=== PATIENT | female | born 1965 | race Caucasian/White ===

== ENCOUNTER 2018-04-02 13:40 | Emergency (ER) | payer MEDICAID, SELFPAY ==
[2018-04-02 13:41] VITALS: BP 136/71; PULSE 95; RESP 16; TEMP 36.6; O2SAT 98; BMI 28.3
[2018-04-02] MEDS: Ketorolac 30 MG/ML Syringe IV (14:18)
[2018-04-02] MEDS: proMETHazine 25 MG/ML Syringe 6.25 MG IV (14:19)
[2018-04-02] MEDS: 0.9% Normal Saline 1,000 ML 999 ML IV (14:20)
[2018-04-02] MEDS: DiphenhydrAMINE 50 MG/ML Syringe IV (14:21)
--- NOTE | 2018-04-02 14:37 | ED.VISSUMM ---
- ER Visit Summary Date of Service: 04/02/18 Chief Complaint: Headache History of Present Illness: The patient is a [address] Persaud in [place]. She reports that she has a headache that began yesterday. It is gradually gotten worse. It is a throbbing pain over the lateral portion of her head bilaterally. Is similar to prior headaches. Is 10 at 10 worsening a 10 currently. Is worsened by light and relieved by nothing. She reports she has been nausea and vomited 5 times. No blood or emesis. Physical Examination: Vitals: Stable. Afebrile. Neck: Supple with no meningismus. Neuro: Cranial nerves II through XII are intact, 5 out of 5 strength throughout, normal sensation to light touch throughout. Normal gait. General: A&O x 3. NAD. Cardiovascular exam: Regular rate and rhythm, no murmur, rub or gallop. Respiratory exam: Clear to auscultation bilaterally. No wheezes or stridor. Abdominal exam: Soft, nontender, nondistended, normal bowel sounds. No peritoneal signs. Extremity: No clubbing, cyanosis, or edema. Emergency Department Course and Treatment: Patient had an IV placed. She was given Toradol, Benadryl, and Phenergan IV. She has had some relief. I instructed her that I will not treat her with opiate-based medications for her headache. Treatment Plan: She will be discharged with Phenergan and instructed to follow-up with her primary care physician 1 day if not improving. Disposition: To home in improved and stable condition. Impression: 1. Cephalgia. This note was generated with [employer] dictation software. It may contain incorrect words, spelling, and punctuation that were not noted in review of the chart prior to signing ED Disposition - Plan for ED Patient: Disposition: Home or Assisted Living Chief Complaint: Headache Instructions: ED Cephalgia Unspecified Prescriptions: proMETHazine suppository [Phenergan Suppository] 25 mg RECTAL Q6H PRN PRN #6 suppos. PRN Reason: Nausea proMETHazine tablet [Phenergan] 25 mg PO Q6H PRN PRN #10 tablet PRN Reason: Nausea Referrals: Judie Hanan, IDALIA-C [Primary Care Provider] - 1-2 Days if not improving
== END 2018-04-02 15:00 | disposition home or self-care (01) ==
PROVIDERS: Emergency Provider Emergency Medicine; Family Provider Nurse Practitioner Family; PCP Nurse Practitioner Family
DX: R51 Headache (principal); J45.909 Unspecified asthma, uncomplicated; Z72.0 Tobacco use; Z79.51 Long term (current) use of inhaled steroids; Z79.899 Other long term (current) drug therapy
CPT/HCPCS: 96361; 96374; 96375; 99283; J7030; A4216

== ENCOUNTER → 2018-04-14 12:38 | Outpatient (CLI) | payer MEDICAID, SELFPAY ==
[2018-04-14 13:23] LABS: Erythrocyte Sedimentation Rate < 1 mm/hr (0-30)
== END ==
PROVIDERS: Family Provider Nurse Practitioner Family; PCP Nurse Practitioner Family; Visit Provider Psychiatry & Neurology Neurology
DX: R51 Headache (principal)
CPT/HCPCS: 36415; 85652

== ENCOUNTER → 2018-04-21 16:21 | Outpatient (CLI) | payer MEDICAID, SELFPAY ==
--- NOTE | 2018-04-21 16:28 | MRI_ITS ---
STUDY: MRI BRAIN WITHOUT CONTRAST REASON FOR EXAM: Female, 52 years old. Post concussion syndrome TECHNIQUE: Standardized multiplanar fat and water weighted pulse sequences were obtained. COMPARISON: CT of the brain on April 27, 2015 and MRI on October 09, 2011 FINDINGS: Normal size of the ventricles and extra-axial spaces for the patient's age. Normal white matter tracts of the supratentorial brain. Normal bilateral basal ganglia. Normal thalami. There is no extra-axial fluid accumulation. Normal flow voids within the major intracranial circulation suggesting patency by spin echo criteria. Empty sella deformity of uncertain clinical significance. Normal, infundibular stalk, optic chiasm and hypothalamus. Normal tectal plate and pineal gland. Foci of signal dropout in the inferior frontal lobes which may be consistent with hemosiderin secondary to old hemorrhagic contusions Normal midbrain, bharat and medulla. Normal cerebellum. Normal basal cisterns. Normal bilateral temporal bones. Normal bilateral internal auditory canals. No demonstrated orbital abnormality, within the constraints of a routine brain study. Minor mucosal thickening of the ethmoid air cells.. Normal calvarium and skull base. Normal visualized soft tissue structures. Normal visualized upper cervical spine. MRI/Brain without Contrast IMPRESSION: Empty sella deformity which may be consistent with pseudotumor cerebri. However clinical correlation is recommended Foci of signal dropout in the inferior frontal lobes which may be due to hemosiderin deposition secondary to old hemorrhagic contusions Electronically Signed: Orlando Chow MD at 18:27 EDT , Service support ,
== END ==
PROVIDERS: Family Provider Nurse Practitioner Family; PCP Nurse Practitioner Family; Visit Provider Psychiatry & Neurology Neurology
DX: R51 Headache (principal); S09.90XA Unspecified injury of head, initial encounter
CPT/HCPCS: 70551

== ENCOUNTER 2018-04-28 15:59 | Emergency (ER) | payer MEDICAID, SELFPAY ==
[2018-04-28 16:00] VITALS: BP 96/67; PULSE 91; RESP 16; TEMP 36.8; O2SAT 95; BMI 28.5
--- NOTE | 2018-04-28 17:01 | ED.DCSUM_ITS ---
- ER Visit Summary Date of Service: 04/28/18 Chief Complaint: Headache History of Present Illness: The patient is a [address] Osmany patricia and Dr. Cuellar. She reports that she has a history of pseudotumor cerebri and postconcussive syndrome and has daily headaches. Her current headache began yesterday and is gradually gotten worse. It is similar to her prior headaches. It is a throbbing in the occipital location. It is 9 out of 10 at worst and 8 of 10 currently. Is worsened by light and dry heaves. It is relieved by nothing. She reports that she has vomited twice. No blood or emesis. She denies any recent injury to her head. Physical Examination: Vitals: Stable. Afebrile. Neck: Supple with no meningismus. Neuro: Cranial nerves II through XII are intact, 5 out of 5 strength throughout , normal sensation to light touch throughout. Normal gait. General: A&O x 3. NAD. Cardiovascular exam: Regular rate and rhythm, no murmur, rub or gallop. Respiratory exam: Clear to auscultation bilaterally. No wheezes or stridor. Abdominal exam: Soft, nontender, nondistended, normal bowel sounds. No peritoneal signs. Extremity: No clubbing, cyanosis, or edema. Emergency Department Course and Treatment: Patient had an IV placed. She was given Phenergan, Benadryl, and Toradol IV has had significant relief. Treatment Plan: Patient will be discharged instructions to follow-up her primary care physician 1-2 days if not improving. Return to the emergency department for any worsening symptoms. Disposition: To home in improved and stable condition. Impression: 1. Cephalgia, recurrent. This note was generated with [employer] dictation software. It may contain incorrect words, spelling, and punctuation that were not noted in review of the chart prior to signing ED Disposition - Plan for ED Patient: Chief Complaint: Headache Instructions: ED Cephalgia Unspecified Referrals: Judie Hanna NP-C [Primary Care Provider] - 1-2 Days if not improving
[2018-04-28] MEDS: 0.9% Normal Saline 1,000 ML 999 ML IV (17:27)
[2018-04-28] MEDS: Ketorolac 30 MG/ML Syringe IV (17:28)
[2018-04-28] MEDS: DiphenhydrAMINE 50 MG/ML Syringe 25 MG IV (17:28)
[2018-04-28] MEDS: proMETHazine 25 MG/ML Syringe 6.25 MG IV (17:28)
[2018-04-28 18:22] VITALS: BP 134/78; PULSE 79; RESP 16; O2SAT 94
== END 2018-04-28 18:52 | disposition home or self-care (01) ==
LOC: ED 17:12
PROVIDERS: Emergency Provider Emergency Medicine; Family Provider Nurse Practitioner Family; PCP Nurse Practitioner Family
DX: R51 Headache (principal); G93.2 Benign intracranial hypertension; Z72.0 Tobacco use
CPT/HCPCS: 96361; 96374; 96375; 99284; J7030

== ENCOUNTER 2018-05-29 11:08 | Emergency (ER) | payer MEDICAID, SELFPAY ==
[2018-05-29 11:09] VITALS: BP 131/101; PULSE 98; RESP 16; TEMP 36.7; O2SAT 98; BMI 27.3
[2018-05-29] MEDS: Metoclopramide 10 MG/2 ML Vial IV (11:57)
[2018-05-29] MEDS: DiphenhydrAMINE 50 MG/ML Syringe 25 MG IV (11:57)
[2018-05-29] MEDS: 0.9% Normal Saline 1,000 ML 999 ML IV (11:58)
--- NOTE | 2018-05-29 11:58 | ED.VISSUMM ---
- ER Visit Summary Date of Service: 05/29/18 Chief Complaint: Headache History of Present Illness: The patient is a 52 F who presents with a headache. It is occipital and throbbing in nature. It is exacerbated by light. Patient states that she had a head injury several months ago and has postconcussive syndrome and is followed by Dr. Ceron. Patient states she takes Phenergan at home but what really helps her severe headaches as Dilaudid up to 4 mg. She states that she really does not wish to have 4 mg of Dilaudid because it is not safe. But she does state that she pretty much has bad side effects or allergies to most other medications we have tried with her. I did mention to her that she has been coming to the emergency department for several years with headaches not just since this injury and she states that that is true but since the injury her headaches have been very bad almost daily. She states she called her doctor's office and they have agreed to move her doctor's appointment up to next week but they recommended that she come to the emergency room for evaluation patient denies any fevers and she denies any neurologic deficits. Physical Examination: Afebrile vital signs are stable Gen: Well-nourished well-developed Head: Normocephalic atraumatic Eyes: Perrl EOMI patient is wearing sunglasses ENT: TMs clear no rhinorrhea moist mucous membranes Neck: Supple no lymphadenopathy no JVD nontender CVS: Regular rate rhythm no murmurs normal S1-S2 Respiratory: No distress clear to auscultation bilaterally chest nontender Abdomen: Soft nontender nondistended normal bowel sounds no masses Back: Nontender Extremity: Nontender no edema Skin: Normal color no rash Neuro: alert orientated ?3 CN II-XII intact normal strength sensation reflexes gait cerebellar Psych: Normal affect normal mood Test Results: None indicated Emergency Department Course and Treatment: I reviewed the patient's previous charts. She has a conversation about a Dilaudid injection on most of him even going back several years. Patient received Toradol Benadryl and Phenergan at her last visit and per documentation got good relief but she states that she had such bad itching and bad reaction she does not wish that. I have ordered Reglan and Benadryl which the patient has had in the past as well as IV fluids. I spoke with our case management because of the patient's established care with neurology for this problem and her frequent visits to the ER for headache I felt it would be a good idea to discuss development of treatment plan for her. Impression: 1. Headache This note was generated with [employer] dictation software. It may contain incorrect words, spelling, and punctuation that were not noted in review of the chart prior to signing ED Disposition - Plan for ED Patient: Disposition: Home or Assisted Living Chief Complaint: Headache Instructions: ED Cephalgia Unspecified Referrals: Judie Hanna NP-C [Primary Care Provider] - 3-5 Days Dheeraj Ceron MD [STAFF PHYSICIAN] - Keep Tamiko appointment
[2018-05-29 13:23] VITALS: BP 104/71; PULSE 81; RESP 14; O2SAT 94
== END 2018-05-29 13:24 | disposition home or self-care (01) ==
PROVIDERS: Emergency Provider Emergency Medicine; Family Provider Nurse Practitioner Family; PCP Nurse Practitioner Family
DX: R51 Headache (principal); G89.29 Other chronic pain; R11.2 Nausea with vomiting, unspecified; E11.9 Type 2 diabetes mellitus without complications; I10 Essential (primary) hypertension; E78.00 Pure hypercholesterolemia, unspecified; F07.81 Postconcussional syndrome; Z79.899 Other long term (current) drug therapy; Z72.0 Tobacco use
CPT/HCPCS: 96361; 96374; 96375; 99283; J7030; A4216

== ENCOUNTER 2018-07-13 15:55 | Emergency (ER) | payer MEDICAID, SELFPAY ==
[2018-07-13 15:56] VITALS: BP 152/83; PULSE 98; RESP 16; TEMP 36.8; O2SAT 98; BMI 27.8
--- NOTE | 2018-07-13 16:50 | ED.VISSUMM ---
- ER Visit Summary Date of Service: 07/13/18 Chief Complaint: Abdominal pain History of Present Illness: The patient is a 52 F with complaints of abdominal pain, back pain, nausea. Patient states she has had a several day history of back pain that is now wrapping around the left flank area. She does report nausea and urinary frequency. She states her temperature was up to 102.7 over the weekend. She has been controlling this with ibuprofen. Past abdominal surgery history is significant for cholecystomy, hysterotomy, and one ovary removed. Physical Examination: Blood pressure is 152/83, temperature 98.3, heart rate 98, respiratory rate 16, pulse ox 98% on room air. Patient is sitting upright in a well lit room but she is wearing sunglasses. Heart is regular rate and rhythm. Lungs sounds are clear. Abdomen is soft with no focal tenderness on exam when she is distracted. There is no guarding or rebound. Hypoactive bowel sounds are noted throughout. Back examination was no CVA tenderness. Test Results: CBC was normal white count and differential. Hemoglobin is 15.2. Chemistry studies normal. Urinalysis normal. CT flank shows nonspecific gastroenteritis that is mild. No sign of bowel obstruction. There is a large right adnexal cyst, likely ovarian. Ultrasound is recommended. Pelvic ultrasound reveals a large right ovarian cyst measuring 5.4 x 5.2 x 4.3 cm. There is mild fluid noted in the cul-de-sac. Emergency Department Course and Treatment: Patient was given IV fluids and Phenergan. She has multiple allergies to pain medication. On repeat evaluation patient is resting comfortably. She is given instructions on ovarian cyst. She will be given Phenergan for home. She is to follow-up with her primary care physician. Treatment Plan: [] Disposition: Discharge Impression: Right ovarian cyst This note was generated with [employer] dictation software. It may contain incorrect words, spelling, and punctuation that were not noted in review of the chart prior to signing ED Disposition - Plan for ED Patient: Disposition: Home or Assisted Living Chief Complaint: Abd Pain Instructions: ED Cyst Ovarian Prescriptions: proMETHazine tablet [Phenergan] 25 mg PO Q6H PRN PRN #10 tablet PRN Reason: Nausea Referrals: Phillip De Santiago MD [Primary Care Provider] - 1 Week if not improving
[2018-07-13] MEDS: proMETHazine 25 MG/ML Syringe 12.5 MG IV (17:03)
[2018-07-13] MEDS: 0.9% Normal Saline 1,000 ML 1000 ML IV (17:04)
[2018-07-13 17:29] LABS: Bacteria 0 SEEN /hpf (None Seen); Mucous, Urine 0 SEEN /hpf (<or=2+); Red Blood Cells-Urine 0 SEEN /hpf (0-5); Squamous Epithelial Cells - UA 0 SEEN /hpf (5-10); White Blood Cells 0 SEEN /hpf (0-5)
[2018-07-13 17:35] LABS: Color, Urine Yellow (Yellow); Glucose, Dipstick Normal (Normal); Ketone-Dipstick Negative (Negative); Leukocyte Esterase-Dipstick Negative /ul (Negative); Nitrite-Dipstick Negative (Negative); Occult Blood-Urine Negative /ul (Negative); Protein-Dipstick Negative (Negative); Urine Bilirubin Dipstick Negative (Negative); Urine Clarity Clear (Clear); Urine Urobilinogen Normal (Normal)
[2018-07-13 17:46] LABS: Anion Gap 5 (5-15); BUN 14 mg/dL (7-18); BUN/Creat Ratio 20.6 RATIO (10-20); Calcium,Total 8.8 mg/dL (8.5-10.1); Chloride 107 mmol/L (98-107); Creatinine, Serum 0.68 mg/dL (0.55-1.02); EST Glomerular Filtration Rate 96 mL/min (>60); Est Glom Filt Rate - Afr Amer 116 mL/min (>60); Estimated Creatinine Clearance 82.62 ml/min; Glucose 98 mg/dL (74-106); Sodium Level 140 mmol/L (136-145)
[2018-07-13 17:56] LABS: Absolute Lymphocyte Count 3.06 X10^3/ul (0.83-4.51); Absolute Neutrophil Count 3.9 X10^3/uL (2.0-7.7); Basophil# 0.02 X10^3/uL; Basophil% 0.3 % (0-1); Eosinophils% 1.3 % (0-5); Hemoglobin 15.2 g/dl (12.0-15.0); Lymphocyte # 3.06 X10^3/ul (4.0); Lymphocyte % 40.2 % (19-41); Mean Corp Hgb Conc 33.8 g/gl (32-36); Mean Corpuscular Hgb 31.1 pg (27.0-32.0); Mean Platelet Vol. 10.3 fl (6.2-12.0); Monocyte# 0.51 X10^3/uL; Monocyte% 6.7 % (0-10); Neutrophil # 3.89 X10^3/uL (2.7-7.7); Neutrophil % 51.1 % (47-70); POSITIVE COUNT NO; POSITIVE DIFFERENTIAL NO; POSITIVE MORPHOLOGY NO; Platelet Count 278 K/mm3 (150-450); RBC Distribution Width CV 13.6 % (11.6-14.6); RBC Distribution Width SD 45.4 fl (35.1-43.9); Red Blood Count 4.89 M/mm3 (4.2-5.4); White Blood Count 7.6 K/mm3 (4.4-11.0)
--- NOTE | 2018-07-13 18:04 | US_ITS ---
STUDY: ULTRASOUND OF THE FEMALE PELVIS - COMPLETE REASON FOR EXAM: Female, 52 years old. Pelvic pain LMP: TECHNIQUE: Transvaginal TECHNICAL QUALITY: Adequate. COMPARISON: None. FINDINGS: Uterus not visualized consistent with hysterectomy Right ovary is enlarged measuring 6.9 x 6.6 x 4.4 cm. There is a large cyst measuring approximately 5.4 x 5.2 x 4.37 years.. Left ovary is not visualized status post nephrectomy.. There is mild fluid in the cul-de-sac US/Transvaginal Non- IMPRESSION: Large right ovarian cyst measuring 5.4 x 5.2 x 4.3 cm with mild fluid in the cul-de-sac. Status post [facility] Electronically Signed: Orlando Chow MD at 19:28 EDT , Service support ,
[2018-07-13 18:13] VITALS: BP 106/67; PULSE 76; RESP 16; O2SAT 96
[2018-07-13] MEDS: 0.9% Normal Saline 1,000 ML 150 ML IV (18:14)
--- NOTE | 2018-07-13 20:33 | ED.DEP ---
ED Disposition - Plan for ED Patient: Disposition: Home or Assisted Living Chief Complaint: Abd Pain Instructions: ED Cyst Ovarian Prescriptions: proMETHazine tablet [Phenergan] 25 mg PO Q6H PRN PRN #10 tablet PRN Reason: Nausea Referrals: Phillip De Santiago MD [Primary Care Provider] - 1 Week if not improving
[2018-07-13 20:45] VITALS: BP 112/80; PULSE 72; RESP 16; O2SAT 96
[2018-07-13 20:46] VITALS: BP 112/80; PULSE 72; RESP 16; O2SAT 96
== END 2018-07-13 20:47 | disposition home or self-care (01) ==
PROVIDERS: Emergency Provider Emergency Medicine; Family Provider Family Medicine; PCP Family Medicine
DX: N83.201 Unspecified ovarian cyst, right side (principal); J45.909 Unspecified asthma, uncomplicated; K21.9 Gastro-esophageal reflux disease without esophagitis; E11.9 Type 2 diabetes mellitus without complications; I10 Essential (primary) hypertension; E78.00 Pure hypercholesterolemia, unspecified; F41.9 Anxiety disorder, unspecified; F32.9 Major depressive disorder, single episode, unspecified; Z72.0 Tobacco use; Z79.899 Other long term (current) drug therapy
CPT/HCPCS: 74176; 76830; 80048; 81001; 85025; 93976; 96361; 96374; 99285; J7030; A4216

== ENCOUNTER 2018-07-14 12:17 | Emergency (ER) | payer MEDICAID, SELFPAY ==
[2018-07-14 12:18] VITALS: BP 162/98; PULSE 93; RESP 15; TEMP 37.1; BMI 27.6
[2018-07-14] MEDS: proMETHazine 25 MG/ML Syringe 6.25 MG IV (12:50)
[2018-07-14] MEDS: HYDROmorphone 0.5 MG/0.5 ML SYRINGE IV (12:52)
--- NOTE | 2018-07-14 13:59 | ED.VISSUMM ---
- ER Visit Summary Date of Service: 07/14/18 Chief complaint: Abdominal pain History of present illness: patient is a 52 F with complaints of abdominal pain, back pain, nausea. She was seen in the emergency room yesterday for same complaint. At that time she had lab work, CT scan, pelvic ultrasound. She was diagnosed with a right ovarian cyst. She was treated with Phenergan. She was advised to follow-up with her primary care physician. She returns today due to continued pain. She states the pain is actually better than it was yesterday but has not resolved. Past abdominal surgery history is significant for cholecystomy, hysterectomy, and one ovary removed. Physical Examination: Vitals are stable. Patient is afebrile. Alert no acute distress. HEENT exam is unremarkable. Neck is supple. Lungs are clear and equal bilaterally. Heart is regular rate and rhythm. Abdomen is soft nontender nondistended, no rebound or guarding Extremities are unremarkable. Skin is warm and dry. No focal neurologic deficit. Remainder of exam is unremarkable. Emergency Department Course and Treatment: Patient was given IV Dilaudid and Phenergan. She has multiple allergies to pain medication. On repeat evaluation patient is resting comfortably. 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 She is advised return to ED if she has worsening complaints. Disposition: Discharge home Impression: Abdominal pain, ovarian cyst This note was generated with [employer] dictation software. It may contain incorrect words, spelling, and punctuation that were not noted in review of the chart prior to signing ED Disposition - Plan for ED Patient: Chief Complaint: Headache Instructions: ED Cyst Ovarian Referrals: Phillip De Santiago MD [Primary Care Provider] - Marcela Bullock MD [STAFF PHYSICIAN] -
--- NOTE | 2018-07-14 14:14 | ED.DEP ---
ED Disposition - Plan for ED Patient: Chief Complaint: Headache Instructions: ED Cyst Ovarian Referrals: Phillip De Santiago MD [Primary Care Provider] - Marcela Bullock MD [STAFF PHYSICIAN] -
[2018-07-14 14:40] VITALS: BP 125/97; PULSE 72; RESP 16; O2SAT 98
== END 2018-07-14 14:41 | disposition home or self-care (01) ==
PROVIDERS: Emergency Provider Emergency Medicine; Family Provider Family Medicine; PCP Family Medicine
DX: N83.201 Unspecified ovarian cyst, right side (principal); R10.9 Unspecified abdominal pain; Z72.0 Tobacco use; Z79.899 Other long term (current) drug therapy
CPT/HCPCS: 96374; 96375; 99283; J7030; A4216

== ENCOUNTER 2018-07-23 07:10 | Day surgery (SDC) | payer MEDICAID, SELFPAY ==
[2018-07-20 13:23] LABS: AST(SGOT) 19 U/L (15-37); Alanine Aminotransfer ALT/SGPT 32 U/L (13-56); Albumin, Serum 4.1 g/dL (3.2-5.0); Alkaline Phosphatase 85 U/L (45-117); Bilirubin, Direct 0.17 mg/dL (0.00-0.30); Globulin 3.8 g/dL (2.2-4.2); Protein, Total 7.9 g/dL (6.4-8.2)
[2018-07-20 13:29] LABS: Hemoglobin A1c 6.6 % (4.2-6.3)
[2018-07-20 14:06] LABS: Partial Thromboplast Time 29.3 Seconds (24.1-36.2); Prothrombin Time (Protime)PT. 12.9 SECONDS (11.7-14.9)
[2018-07-23] VITALS (7 sets, daily range): BP systolic 129–154; BP diastolic 83–95; PULSE 78–107; RESP 16–18; TEMP 36–36.5; O2SAT 94–98; BMI 26.6
--- NOTE | 2018-07-23 | OV_PTH ---
PATIENT: RHONDA MORRISON LOC: [facility] [place] U#:[id number] AGE/SX: 52/F ROOM: RE07/23/[address]: Dr. Marcela Bullock, MDDOB: 1965 BED: DIS: 07/23/2018 SPEC #: [id number] RECD: 07/23/18 14:14 STATUS: JIMENEZ REBianca #: [id number] DEBORAH: 07/23/18 00:[address]: Marcela Bullock DEPT: SURGICAL PATHOLOGY RECD BY: Ariel Higginbotham ENTERED: 07/23/18 14:14 SP TYPE: OVARY OTHR DR: Dr. Phillip De Santiago MD Tissues: Right ovary Procedures: Surgery Specimen Level IV HEADER OPERATION: Laparoscopic right oophorectomy PRE-OP DIAGNOSIS: Pelvic pain, right ovarian cyst TISSUE SUBMITTED: Right ovary MICROSCOPIC DIAGNOSIS Right ovary, oophorectomy: Consistent with serous cystadenoma. Hemorrhagic corpus luteal cysts and corpora albicantia. AM:miguel 07/24/18 MICROSCOPIC DESCRIPTION Slides are reviewed. GROSS DESCRIPTION Received in fixative is one container labeled with the patient's name and designated right ovary. The specimen consists of a soft to cystic ovary measuring 5 x 2.5 x 1.5 cm. Outer surface does not show any papillation and it is inked black. It measures 4.5 x 3 x 2 cm and weighs 9.3 gm. Sections reveal a collapsed cyst measuring 3 cm in greatest dimension. The cyst wall is smooth without any papillation. Also present in the container is a piece of hemorrhagic mucoid tissue measuring 2 x 0.5 x 0.3 cm. Wildlife Conservationist sections are submitted in four cassettes. / SJ:miguel 07/23/18 TC:1 CPT: 66115
[2018-07-23 08:05] LABS: Bedside Glucose 222 mg/dL (70-110)
[2018-07-23] MEDS: Bupivacaine Mpf 0.5% 30 ML VIAL (09:05)
--- NOTE | 2018-07-23 09:43 | PCM.DC ---
You will use the following diet at home:: No restrictions Your food should be the consistency of: Regular Discharge Activity: Return to Normal Activity, May not drive while taking narcotic pain medications., May Shower May resume sexual activity in: 2 weeks Lifting Restrictions: 25 Call your doctor if your incision/area has: Continuous Slow Oozing, Sudden Increased Bleeding, Increased Pain/ Swelling, Increased Redness, Foul Smelling Discharge, Swelling at the incision site Call your doctor if you observe: Fever of 101 or Higher Suture Line Care: Avoid Pulling/Pushing, Avoid Pinching/Bending Cleanse incision/area with: - - do not pick off skin glue- may let soap and water run over incision sites and dab dry Allergies/Adverse Reactions: Allergies carbidopa Allergy (Verified 07/23/18 07:46) Unknown gabapentin Allergy (Verified 07/23/18 07:46) Unknown latex Allergy (Verified 07/23/18 07:46) Rash quetiapine fumarate [From Seroquel] Allergy (Verified 07/23/18 07:46) Other MENTAL CONFUSION topiramate [From Topamax] Allergy (Verified 07/23/18 07:46) Hives tramadol HCl [From Ultram] Allergy (Verified 07/23/18 07:46) Other MENTAL STATUS CHANGE amitriptyline Adverse Reaction (Verified 07/23/18 07:46) Vomiting aspirin Adverse Reaction (Verified 07/23/18 07:46) Upset Stomach codeine Adverse Reaction (Verified 07/23/18 07:46) Vomiting cyclobenzaprine HCl [From Flexeril] Adverse Reaction (Verified 07/23/18 07:46) Upset Stomach etodolac [Etodolac] Adverse Reaction (Verified 07/23/18 07:46) Vomiting hydrocodone bitartrate [From Vicodin] Adverse Reaction (Verified 07/23/18 07:46) Vomiting ketorolac tromethamine [From Toradol] Adverse Reaction (Verified 07/23/18 07:46) Other morphine Adverse Reaction (Verified 07/23/18 07:46) Vomiting AND MENTAL STATUS CHANGE naproxen [From Naprosyn] Adverse Reaction (Verified 07/23/18 07:46) Upset Stomach propoxyphene napsylate [From Darvocet-N 100] Adverse Reaction (Verified 07/23/18 07:46) Vomiting Medications to take at Discharge ALPRAZolam [Xanax] 2 mg PO BID PRN PRN 07/14/18 Atorvastatin Calcium 80 mg PO QHS 07/14/18 L.acidoph,Paracasei, B.lactis [Probiotic] 1 each PO DAILY 07/14/18 Lisinopril [Zestril] 5 mg PO DAILY 07/14/18 Omeprazole 40 mg PO DAILY 07/14/18 Ipratropium/Albuterol Respimat [Combivent Respimat Inhal [place]] 1 puff INHALATION BID 07/23/18 Ipratropium/Albuterol Sulfate [Duoneb] 3 ml INHALATION Q4H.RT PRN 07/23/18 SimETHICONE [Mylicon] 80 mg PO 4X/DAY #20 tab 07/23/18 The following prescriptions were given: SimETHICONE [Mylicon] 80 mg PO 4X/DAY #20 tab Primary Care Physician: Phillip De Santiago MD [Primary Care Provider] - Test Results: Test results from this visit will be discussed in further detail at your follow-up appointment, if applicable.
--- NOTE | 2018-07-23 09:45 | PCM.OP.BLANK ---
Operative Report Date of Procedure: 07/23/18 Surgeon: Dr. Marcela Brink-Arpita Centerless Grinding Machine Adjuster: Dr Mariela Esqueda Preoperative diagnosis: Right ovarian cyst, Pelvic apin Procedure performed: laparoscopic Right Oophorectomy Postoperative diagnosis: same complications: None Estimated blood loss: 5cc Drains: none Specimens collected: Right Ovary and cyst Findings: surgically absent uterus and previous LSO Anesthesia: general Implantable devices: None Fluids: 800cc Operative note: After informed consent was obtained patient was taken to the operating room she was placed in supine position she was given anesthesia. She was then placed in [facility] stirrups and she was prepped and draped in normal sterile fashion. Bladder was drained prior to the start of procedure approximately 100cc of clear yellow urine was expelled. At this time attention was turned to the vaginal portion where sponge stick was placed. Legs then placed in parallel with the abdomen the tenaculum and the weighted speculum were removed. 2 towel clamps were placed superior to umbilicus. After Marcaine was injected superior to umbilicus a small incision was made and a 5 mm trocar was placed under direct visualization. CO2 gas was used to insufflate the intra-abdominal cavity. Upon inspection no gross abnormalities uterus and left adnexa absent. At this time then the LLQ port was placed again Marcaine was injected small incision was made a knife and the 5 mm trocar was placed. this was repeated on right side. Right ovarian cyst appreciated- Ligasure was used to coagulate and ligate along IP ligament- cyst and ovary removed completely. Good hemostasis was appreciated. The umbilical incision was extended to 10mm port and endocatch bag placed- specimens collected and removed. The ermelinda taylor was then used to closed fascia of umbilical incision using 0-vicryl sutre. At this time procedure was deemed complete successful. The gas was desufflated on from the intra-abdominal cavity. The trochars were removed. Skin was closed using 4-0 Monocryl in a subcutaneous fashion. Dermabond glue was placed. Instrument lap and needle counts were correct ?2. The vaginal sponge was removed- Vaginal sweep was performed it was negative. There were no complications anticipated normal postoperative course for this patient.
[2018-07-23 10:35] LABS: Bedside Glucose 166 mg/dL (70-110)
== END 2018-07-23 10:57 | disposition home or self-care (01) ==
LOC: SDC 07:10 → AC 07:11
PROVIDERS: Family Provider Family Medicine; PCP Family Medicine; Visit Provider Obstetrics & Gynecology
PROC: (CPT 58720; principal; 2018-07-23 08:10)
DX: N83.11 Corpus luteum cyst of right ovary (principal); N83.291 Other ovarian cyst, right side; J45.909 Unspecified asthma, uncomplicated; F31.9 Bipolar disorder, unspecified; K21.9 Gastro-esophageal reflux disease without esophagitis; G47.33 Obstructive sleep apnea (adult) (pediatric); F17.210 Nicotine dependence, cigarettes, uncomplicated; E78.00 Pure hypercholesterolemia, unspecified; F41.9 Anxiety disorder, unspecified; I10 Essential (primary) hypertension; Z79.51 Long term (current) use of inhaled steroids; Z79.899 Other long term (current) drug therapy
CPT/HCPCS: 58661; 36415; 80076; 82962; 83036; 85610; 85730; 88305; 93005; J7120; J2405

== ENCOUNTER 2018-09-07 16:15 | Emergency (ER) | payer MEDICAID, SELFPAY ==
[2018-09-07 16:16] VITALS: BP 121/93; PULSE 99; RESP 18; TEMP 36.8; O2SAT 98; BMI 25.7
--- NOTE | 2018-09-07 17:24 | ED.DCSUM_ITS ---
- ER Visit Summary Date of Service: 09/07/18 Chief Complaint: Elevated blood sugar and not feeling well History of Present Illness: The patient is a 53 F 3 of type 2 diabetes currently diet controlled. She is been on metformin in the past but has been taken off of it. Typically she controls her blood sugars well with diet and exercise. Patient states that she had elevated blood sugar today 279 and as high as 299. This has been feeling well. She has a headache. Denies any head trauma. No fever. It was not thunderclap. She is on no blood thinners. She denies any sinus congestion. It is diffuse. She denies any chest pain, shortness of breath, nor any abdominal pain. No vomiting, diarrhea or fever. She does have some mild nausea. Physical Examination: Well-appearing middle-age female. Vital signs are stable afebrile. Blood pressure 121/93. She does not look septic or toxic. She does not look dehydrated. H EENT exam unremarkable. Moist wheeze membranes. Pupils round reactive light. No facial droop. Normal speech. Neck nontender. No meningismus. Able to flex and touch chin to her chest easily. Lungs clear to auscultation bilaterally. Heart regular rhythm no murmur. Abdomen soft and nontender. Normal bowel sounds no peritoneal signs. She is moving all 4 extremities. They are neurovascularly intact. She has 5 out of 5 deputy [place] marshal strength bilaterally. Dorsi and plantar flexion intact. Neurologically she is awake and alert with no focal motor deficits. [place]ta to nose is within normal limits. She has normal range of motion both upper and lower extremities. She has rapid hand movement without any difficulty. Back exam normal. Test Results: Labs were ordered. Patient left prior to them being drawn. Emergency Department Course and Treatment: Clinically I do not feel she is in DKA. In all for her headache. She did request Dilaudid for her headache which I explained her typically do not treat headaches with Dilaudid. Treatment Plan: Nursing informed me that patient was unhappy that she was not receiving Dilaudid for her headache. Explained to her also as I had done previously that is not a drug we typically use for headaches. Patient decided to leave and not have any labs drawn or the workup performed. Disposition: Discharge Impression: Acute hyperglycemia with a history of diabetes Patient left prior to evaluation completed due to not receiving Dilaudid. This note was generated with [employer] dictation software. It may contain incorrect words, spelling, and punctuation that were not noted in review of the chart prior to signing ED Disposition - Plan for ED Patient: Disposition: Against Medical Advice Chief Complaint: Hyperglycemia Referrals: Care Physician,No Primary [Primary Care Provider] -
--- NOTE | 2018-09-07 17:32 | ED.RN ---
PT REFUSED TO HAVE IV INSERTED BY MEDIC, REFUSED TO HAVE LABS DRAWN. PT STATES TO THIS RN YOU ARE NOT TREATING ME APPROPRIATELY, PT REQUESTS TO HAVE DILAUDID FOR HER HEADACHE, REFUSES ALL OTHER INTERVENTIONS. PT STATES SHE IS LEAVING, DOES NOT WANT ANY CARE GIVEN. AWARE.
== END 2018-09-07 17:43 | disposition left against medical advice (07) ==
LOC: ED 17:16
PROVIDERS: Emergency Provider Emergency Medicine
DX: E11.65 Type 2 diabetes mellitus with hyperglycemia (principal); R51 Headache; J45.909 Unspecified asthma, uncomplicated; K21.9 Gastro-esophageal reflux disease without esophagitis; E78.00 Pure hypercholesterolemia, unspecified; Z72.0 Tobacco use

== ENCOUNTER 2018-09-16 10:23 | Emergency (ER) | payer MEDICAID, SELFPAY ==
[2018-09-16 10:24] VITALS: BP 166/100; PULSE 107; RESP 18; TEMP 36.6; O2SAT 99; BMI 25.7
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
--- NOTE | 2018-09-16 11:23 | ED.DEP ---
ED Disposition - Plan for ED Patient: Chief Complaint: Headache Instructions: ED Cephalgia Unspecified Prescriptions: Hydrocodone Bitart/Apap 5-325 [[place] 5MG-325MG] 1 tab PO Q4H PRN PRN 2 Days #4 tab PRN Reason: Pain Penicillin V Potassium 500 mg PO 4X/DAY #40 tab Referrals: Care Physician,No Primary [Primary Care Provider] - Additional Instructions: See your outpatient providers for your headaches and dental condition days
--- NOTE | 2018-09-16 11:26 | DCINST.ED_ITS ---
ED Disposition - Plan for ED Patient: Chief Complaint: Headache Instructions: ED Cephalgia Unspecified Prescriptions: Hydrocodone Bitart/Apap 5-325 [[place] 5MG-325MG] 1 tab PO Q4H PRN PRN 2 Days #4 tab PRN Reason: Pain Penicillin V Potassium 500 mg PO 4X/DAY #40 tab Referrals: Care Physician,No Primary [Primary Care Provider] - Additional Instructions: See your outpatient providers for your headaches and dental condition days
--- NOTE | 2018-09-16 11:46 | ED.DEP ---
ED Disposition - Plan for ED Patient: Chief Complaint: Headache Instructions: ED Cephalgia Unspecified Prescriptions: Hydrocodone Bitart/Apap 5-325 [[place] 5MG-325MG] 1 tab PO Q4H PRN PRN 2 Days #4 tab PRN Reason: Pain Oxycodone HCl/Acetaminophen [Percocet 5/325] 1 tab PO Q6H PRN PRN 3 Days #4 tab PRN Reason: Pain Penicillin V Potassium 500 mg PO 4X/DAY #40 tab Referrals: Care Physician,No Primary [Primary Care Provider] - Additional Instructions: See your outpatient providers for your headaches and dental condition days
[2018-09-16] MEDS: proMETHazine 25 MG Tablet PO (11:57)
[2018-09-16 12:00] VITALS: PULSE 110; RESP 17; O2SAT 99
== END 2018-09-16 12:03 | disposition home or self-care (01) ==
LOC: ED 10:58
PROVIDERS: Emergency Provider Emergency Medicine
DX: R51 Headache (principal); F07.81 Postconcussional syndrome; K08.89 Other specified disorders of teeth and supporting structures; G89.29 Other chronic pain; Z79.899 Other long term (current) drug therapy
CPT/HCPCS: 99283

== ENCOUNTER 2018-10-03 12:39 | Emergency (ER) | payer MEDICAID, SELFPAY ==
[2018-10-03 12:40] VITALS: BP 112/75; PULSE 101; RESP 16; TEMP 36.6; O2SAT 96; BMI 24.9
--- NOTE | 2018-10-03 13:28 | ED.RN ---
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 She asked for an injection of phenergan before leaving. My understanding per the pt was she was in for increased glucose levels. I encouraged her to stay for fluids and meds but pt refused. I also refused to give her phenergan IM. I told her we'd hold the orders for an hour but after speaking to Dr Gunderson I am doing her disposition.
--- NOTE | 2018-10-03 15:55 | ED.DCSUM_ITS ---
- ER Visit Summary Date of Service: 10/03/18 Chief Complaint: Elevated blood sugar History of Present Illness: The patient is a 53 F who sees a physician at [facility] whose name she cannot remember. She states that she is recently transitioned to them. She reports that she has a history of type 2 d iabetes and has been off of metformin for the past 3 years as her sugar was now diet controlled. She reports that yesterday her blood sugar was 304 at highest and typically runs 102-180. States last hemoglobin A1c was 6.9. On review of systems patient complains of headache is 10 out of 10 severity. It is a dull diffuse pain that is gradually gotten worse since yesterday. She does have a history of similar headaches. She is nauseated, but has not vomited. No photophobia. She denies any numbness or weakness. Review of systems is otherwise negative. Physical Examination: Vitals: Stable. Afebrile. General: Well-nourished and well-developed. Head: Normocephalic atraumatic. Neck: Supple, no lymphadenopathy. No JVD. Nontender. Cardiovascular: Regular rate and rhythm. No murmurs. Respiratory: No respiratory distress. Clear to auscultation bilaterally. Abdominal: Soft, nontender, nondistended, normal bowel sounds. No guarding, rebound, or peritoneal signs. Back: Nontender. Extremities: Nontender, no edema. Skin: Normal color, no rash. Neurologic: Alert and oriented ?3. Cranial nerves II through XII are intact. Normal strength and sensation. Psych: Normal affect. Test Results: I ordered a BMP, CBC, and hemoglobin A1c. Patient left prior to blood draw. Emergency Department Course and Treatment: I had a discussion with patient about the appropriate treatment for migraine headaches. She states that she cannot take Reglan and would like Phenergan. I agreed to that. However, she reports the only other thing that helps is Dilaudid. I told her that that is not an appropriate treatment for migraine headaches and that we will give her Tylenol. She did not seem upset by this. However, she left prior to having an IV even placed. Treatment Plan: Patient left prior to completion of treatment. Disposition: Elopement Impression: 1. Reported hypoglycemia. 2. Recurrent headache. 3. Eloperment. This note was generated with [employer] dictation software. It may contain incorrect words, spelling, and punctuation that were not noted in review of the chart prior to signing ED Disposition - Plan for ED Patient: Disposition: Against Medical Advice Chief Complaint: Hyperglycemia Referrals: Care Physician,No Primary [Primary Care Provider] -
== END 2018-10-03 14:26 | disposition left against medical advice (07) ==
PROVIDERS: Emergency Provider Emergency Medicine
DX: E11.65 Type 2 diabetes mellitus with hyperglycemia (principal); R51 Headache; Z72.0 Tobacco use

== ENCOUNTER 2018-10-06 13:15 | Emergency (ER) | payer MEDICAID, SELFPAY ==
[2018-10-06 13:16] VITALS: BP 146/96; PULSE 96; RESP 18; TEMP 36.9; O2SAT 98; BMI 25.4
[2018-10-06 13:25] LABS: Bedside Glucose 160 mg/dL (70-110)
--- NOTE | 2018-10-06 14:16 | ED.RN ---
pt upset d/t wait. attempted to explain to pt, pt became upset and left.
== END 2018-10-06 14:15 | disposition left against medical advice (07) ==
PROVIDERS: Emergency Provider Emergency Medicine; PCP Family Medicine
DX: R55 Syncope and collapse (principal)
CPT/HCPCS: 82962

== ENCOUNTER → 2018-11-10 14:24 | Outpatient (CLI) | payer MEDICAID, SELFPAY ==
[2018-11-10 09:49] VITALS: BMI 27.4
[2018-11-10 15:16] LABS: Microalbumin,Random Urine 5.7 mg/L (NO RANGE EST.); Microalbumin:Creatinine Ratio 8.1 mg/g CRE (<30 mg/g CRE)
[2018-11-10 15:28] LABS: Absolute Lymphocyte Count 3.27 X10^3/ul (0.83-4.51); Absolute Neutrophil Count 4.2 X10^3/uL (2.0-7.7); Basophil# 0.02 X10^3/uL; Basophil% 0.2 % (0-1); Eosinophil# 0.07 X10^3/uL; Eosinophils% 0.9 % (0-5); Hematocrit 46.7 % (37-47); Hemoglobin 15.8 g/dl (12.0-15.0); Lymphocyte # 3.27 X10^3/ul (4.0); Lymphocyte % 40.8 % (19-41); Mean Corp Hgb Conc 33.8 g/gl (32-36); Mean Corpuscular Hgb 30.9 pg (27.0-32.0); Mean Corpuscular Volume 91.2 fL (81-99); Mean Platelet Vol. 9.9 fl (6.2-12.0); Monocyte# 0.47 X10^3/uL; Monocyte% 5.9 % (0-10); Neutrophil # 4.17 X10^3/uL (2.7-7.7); Platelet Count 259 K/mm3 (150-450); RBC Distribution Width CV 12.9 % (11.6-14.6); RBC Distribution Width SD 42.2 fl (35.1-43.9); Red Blood Count 5.12 M/mm3 (4.2-5.4)
[2018-11-10 15:31] LABS: POSITIVE COUNT NO; POSITIVE DIFFERENTIAL NO; POSITIVE MORPHOLOGY NO
[2018-11-10 15:37] LABS: Anion Gap 5 (5-15); BUN 13 mg/dL (7-18); BUN/Creat Ratio 20.3 RATIO (10-20); Chloride 107 mmol/L (98-107); Creatinine, Serum 0.64 mg/dL (0.55-1.02); EST Glomerular Filtration Rate 103 mL/min (>60); Est Glom Filt Rate - Afr Amer 125 mL/min (>60); Glucose 137 mg/dL (74-106); Potassium 3.7 mmol/L (3.5-5.1); Sodium Level 141 mmol/L (136-145)
[2018-11-10 16:11] LABS: Hemoglobin A1c 7.7 % (4.2-6.3)
--- OUTSIDE RECORDS SUMMARY | 2018-12-27 20:00 | XMS RPT_ITS ---
:1965 Author Organization OHIP Support Name Relationship Address Phone D Unavailable Unavailable Unavailable SAM ZAMBRANO Unavailable [address] + [place] [address] MALVIN HICKSA Unavailable [address] + [place] [address] D Unavailable Unavailable Unavailable SAM ZAMBRANO Unavailable [address] + [place] [address] MALVIN HICKSA Unavailable [address] + [place] [address] D Unavailable Unavailable Unavailable SAM ZAMBRANO Unavailable [address] + [place] [address] HICKS, SEBASTIAN Unavailable [address] + [place] [address] D Unavailable Unavailable Unavailable SAM ZAMBRANO Unavailable [address] + [place] [address] HICKS, SEBASTIAN Unavailable [address] + [place] [address] D Unavailable Unavailable Unavailable SAM ZAMBRANO Unavailable [address] + [place] [address] HICKS, SEBASTIAN Unavailable [address] + [place] [address] D Unavailable Unavailable Unavailable SAM ZAMBRANO Unavailable [address] + [place] [address] HICKS, SEBASTIAN Unavailable [address] + [place] [address] SAM ZAMBRANO Unavailable Unavailable + SAM ZAMBRANO Unavailable Unavailable + AMARA HOLMAN Unavailable Unavailable + D Unavailable Unavailable Unavailable SAM ZAMBRANO Unavailable [address] + [place] [address] SEBASTIAN HICKS Unavailable [address] + [place] [address] D Unavailable Unavailable Unavailable ZAMBRANO, SAM Unavailable [address] + [place] [address] SEBASTIAN HICKS Unavailable [address] + [place] [address] D Unavailable Unavailable Unavailable ZAMBRANO, SAM Unavailable [address] + [place] [address] SEBASTIAN HICKS Unavailable [address] + [place] [address] D Unavailable Unavailable Unavailable ZAMBRANO, SAM Unavailable [address] + [place] [address] SEBASTIAN HICKS Unavailable [address] + [place] [address] D Unavailable Unavailable Unavailable ZAMBRANO, SAM Unavailable [address] + [place] [address] SEBASTIAN HICKS Unavailable [address] + [place] [address] D Unavailable Unavailable Unavailable ZAMBRANO, SAM Unavailable [address] + [place] [address] SEBASTIAN HICKS Unavailable [address] + [place] [address] D Unavailable Unavailable Unavailable ZAMBRANO, SAM Unavailable [address] + [place] [address] SEBASTIAN HICKS Unavailable [address] + [place] [address] D Unavailable Unavailable Unavailable ZAMBRANO, SAM Unavailable [address] + [place] [address] D Unavailable Unavailable Unavailable ZAMBRANO, SAM Unavailable [address] + [place] [address] D Unavailable Unavailable Unavailable ZAMBRANO, SAM Unavailable [address] + [place] [address] D Unavailable Unavailable Unavailable ZAMBRANO, SAM Unavailable [address] + [place] [address] D Unavailable Unavailable Unavailable ZAMBRANO, SAM Unavailable [address] + [place] [address] ZAMBRANO, SAM Unavailable Unavailable + ZAMBRANO, SAM Unavailable Unavailable + RIVER, EDWARD Unavailable Unavailable + D Unavailable Unavailable Unavailable ZAMBRANO, SAM Unavailable [address] + [place] [address] ZAMBRANO, SAM Unavailable Unavailable + ZAMBRANO, SAM Unavailable Unavailable + RIVER, EDWARD Unavailable Unavailable + ZAMBRANO, SAM Unavailable Unavailable + ZAMBRANO, SAM Unavailable Unavailable + RIVER, EDWARD Unavailable Unavailable + ZAMBRANO, SAM Unavailable Unavailable + ZAMBRANO, SAM Unavailable Unavailable + RIVER, EDWARD Unavailable Unavailable + ZAMBRANO, SAM Unavailable Unavailable + ZAMBRANO, SAM Unavailable Unavailable + RIVER, EDWARD Unavailable Unavailable + ZAMBRANO, SAM Unavailable Unavailable + ZAMBRANO, SAM Unavailable Unavailable + RIVER, EDWARD Unavailable Unavailable + Care Team Providers Name Role Phone EZEQUIEL MONROE Attending Unavailable LORSON PIN MACHINE TENDER, MS. JUDIE Primary Care Unavailable LORSON PIN MACHINE TENDER, MS. JUDIE Attending Unavailable LORSON PIN MACHINE TENDER, MS. JUDIE Primary Care Unavailable NICOLE CORTES Attending Unavailable LORSON PIN MACHINE TENDER, MS. JUDIE Primary Care Unavailable EZEQUIEL MONROE Attending Unavailable LORSON PIN MACHINE TENDER, MS. JUDIE Primary Care Unavailable LORSON PIN MACHINE TENDER, MS. JUDIE Attending Unavailable LORSON PIN MACHINE TENDER, MS. JUDIE Primary Care Unavailable LORSON PIN MACHINE TENDER, MS. JUDIE Attending Unavailable LORSON PIN MACHINE TENDER, MS. JUDIE Primary Care Unavailable AMALIA MURO, DR. JOHNSON Attending Unavailable LORSON PIN MACHINE TENDER, MS. JUDIE Primary Care Unavailable CINDY CANNNO (PIN MACHINE TENDER) Attending Unavailable CINDY CANNON (PIN MACHINE TENDER) Referring Unavailable NEYHART SWANN, MARCELA Attending Unavailable NEYHART SWANN, MARCELA Referring Unavailable CINDY CANNON (MANUEL) Referring Unavailable NEYHART SWANN, MARCELA Attending Unavailable ROMA DE SANTIAGO () Attending Unavailable Oleghe, Efewongbe Attending Unavailable Oleghe, Efewongbe Referring Unavailable Oleghe, Efewongbe Attending Unavailable Oleghe, Efewongbe Referring Unavailable Oleghe, Efewongbe Primary Care Unavailable Oleghe, Efewongbe Attending Unavailable Oleghe, Efewongbe Referring Unavailable Oleghe, Efewongbe Attending Unavailable Oleghe, Efewongbe Referring Unavailable Oleghe, Efewongbe Primary Care Unavailable Andrea Higginbotham AMBULATORY SERVICE REPRESENTATIVE-C Attending Unavailable Oleghe, Efewongbe Referring Unavailable Taylor Thurston Attending Unavailable Monty Gunderson Attending Unavailable Lorson, Judie Primary Care Unavailable Osmany, Dheeraj S. Attending Unavailable Osmany, Dheeraj S. Referring Unavailable Lorson, Judie Primary Care Unavailable Osmany, Dheeraj S. Attending Unavailable Osmany, Dheeraj S. Referring Unavailable Lorson, Judie Primary Care Unavailable Lorson, Judie Primary Care Unavailable Monty Gunderson Attending Unavailable Lorson, Judie Primary Care Unavailable Sabas Pierre Attending Unavailable Zamzam Marshall Attending Unavailable Zamzam Marshall Referring Unavailable Bursley, Phillip Primary Care Unavailable Bursley, Phillip Primary Care Unavailable Glory Ashton Attending Unavailable Neyhart-Swann, Marcela Attending Unavailable Neyhart-Swann, Marcela Referring Unavailable Bursley, Phillip Primary Care Unavailable Librado Horton Attending Unavailable Neyhart-Swann, Marcela Referring Unavailable Orlando Shea Attending Unavailable Primay Care Physicia, No Primary Care Unavailable Primay Care Physicia, No Primary Care Unavailable Nevaeh Gordon Attending Unavailable Primay Care Physicia, No Primary Care Unavailable Monty Gunderson Attending Unavailable Primay Care Physicia, No Primary Care Unavailable Orlando Shea Attending Unavailable PROBLEMS PROBLEMS DATE TYPE CONDITION / CODE ATTENDING STATUS SOURCE 12/08/2018 Unknown E11.9 - Type 2 Andrea Higginbotham Active [facility] diabetes mellitus AMBULATORY SERVICE REPRESENTATIVE-C Community without Hospital complications / Repository E11.9(ICD-10) 11/27/2018 Unknown E78.5 - Oleghe, Active [place] Hyperlipidemia, Efewongbe Community unspecified / Hospital E78.5(ICD-10) Repository 09/16/2018 Unknown R52 - Pain, Jwayyed, Active [place] unspecified / [facility] R52(ICD-10) Hospital Repository 07/20/2018 Active Encounter for NA Active [facility] screening for other Clinic Main disorder / [place] Z13.89(ICD-10) Repository 08/12/2018 Unknown I10 - Essential [place]ispaw, Librado Active [facility] (primary) Community hypertension / Hospital I10(ICD-10) Repository 07/17/2018 Active Unspecified ovarian NA Active [facility] cyst, right side / Clinic Main N83.201(ICD-10) [place] Repository 07/09/2018 Active Lower abdominal NA Active [facility] pain, unspecified / Clinic Main R10.30(ICD-10) [place] Repository 07/09/2018 Active Low back pain / NA Active [facility] M54.5(ICD-10) Clinic Main [place] Repository 07/09/2018 Active Abdominal NA Active [facility] distension Clinic Main (gaseous) / [place] R14.0(ICD-10) Repository 07/09/2018 Active Generalized NA Active [facility] abdominal pain / Clinic Main R10.84(ICD-10) [place] Repository 04/21/2018 Unknown R51 - Headache / Osmany, Active [facility] R51(ICD-10) [facility] Repository 04/21/2018 Unknown S09.90XA - Osmany, Active [place] Unspecified injury [facility] of head, initial Hospital encounter / Repository S09.90XA(ICD-10) 03/11/2018 Admitting Type 2 diabetes LIANET JACKSON, MS. Active [facility] Diagnosis mellitus without [facility] complications / Repository E11.9(ICD-10) PROCEDURES PROCEDURES No Procedure Records FoundRESULTS RESULTS INTERNAL MEDICINE Observed: 12/09/2018 Status: F Source: [place] OFFICE VISIT 3:00 PM [facility] REPOSITORY [facility] [address] [place] [address] [place] [address] OFFICE VISIT Date of Service: 12/08/18 MR#: [id number] Acct: [id number] Name: BRANDI [place] Rep #: [id number] : 1965 Provider: Andrea Higginbotham NP Age/Sex: 53/F Location: [facility] Status: Signed Intake Vital Signs12/08/18 Body Mass Index (BMI) 27.4 12/08/18 Height 5 ft 4 in Intake Visit Reasons: Stomach problem no better Chief Complaint: stomach problems no better Is patient in pain?: Yes (stomach pains) Pain scale (1-10): 4 Allergies carbidopa Allergy (Verified 11/10/18 09:56) Unknown gabapentin Allergy (Verified 11/10/18 09:56) Unknown latex Allergy (Verified 11/10/18 09:56) Rash quetiapine fumarate [From Seroquel] Allergy (Verified 11/10/18 09:56) Other topiramate [From Topamax] Allergy (Verified 11/10/18 09:56) Hives tramadol HCl [From Ultram] Allergy (Verified 11/10/18 09:56) Other amitriptyline Adverse Reaction (Verified 11/10/18 09:56) Vomiting aspirin Adverse Reaction (Verified 11/10/18 09:56) Upset Stomach codeine Adverse Reaction (Verified 11/10/18 09:56) Vomiting cyclobenzaprine HCl [From Flexeril] Adverse Reaction (Verified 11/10/18 09:56) Upset Stomach etodolac [Etodolac] Adverse Reaction (Verified 11/10/18 09:56) Vomiting hydrocodone bitartrate [From Vicodin] Adverse Reaction (Verified 11/10/18 09:56) Vomiting ketorolac tromethamine [From Toradol] Adverse Reaction (Verified 11/10/18 09:56) Other metformin Adverse Reaction (Verified 11/27/18 10:45) Diarrhea morphine Adverse Reaction (Verified 11/10/18 09:56) Vomiting naproxen [From Naprosyn] Adverse Reaction (Verified 11/10/18 09:56) Upset Stomach propoxyphene napsylate [From Darvocet-N 100] Adverse Reaction (Verified 11/10/18 09:56) Vomiting Medications ALPRAZolam [Xanax] 2 mg PO BID PRN PRN 07/14/18 [History Confirmed 11/27/18] Atorvastatin Calcium 80 mg PO QHS 07/14/18 [History Confirmed 11/27/18] L.acidoph,Paracasei, B.lactis [Probiotic] 1 ea PO DAILY 07/14/18 [History Confirmed 11/27/18] Omeprazole 40 mg PO DAILY 07/14/18 [History Confirmed 11/27/18] Ipratropium/Albuterol Sulfate [Duoneb] 3 ml INHALATION Q4H.RT PRN 07/23/18 [History Confirmed 11/27/18] ibuprofen 200 mg tablet 200 mg PO TID-QID PRN 11/10/18 [History Confirmed 11/27/18] ipratropium 20 mcg-albuterol 100 mcg/actuation mist for inhalation 1 puff INHALATION .QID g 11/10/18 [History Confirmed 11/27/18] lisinopril 10 mg tablet 10 mg PO DAILY #30 tab 11/10/18 [Rx Confirmed 11/27/18] paroxetine 40 mg tablet 40 mg PO DAILY 11/10/18 [History Confirmed 11/27/18] ondansetron HCl 4 mg tablet 4 mg PO BID-TID PRN #20 tab 11/11/18 [Rx Confirmed 11/27/18] ibuprofen 800 mg tablet 800 mg PO BID PRN #30 tab 11/27/18 [Rx] Post menopausal: Yes PFSH Medical History Post concussion syndrome (Chronic) Vision problems (Chronic) Neuropathy (Chronic) IBS (irritable bowel syndrome) (Chronic) Hyperlipidemia (Chronic) High blood pressure (Chronic) Chronic headaches (Chronic) Hx of emotional problems (Chronic) Diabetes (Chronic) Carpal tunnel syndrome (Chronic) Asthma (Chronic) Seasonal allergies (Chronic) Surgical History History of (Acute) History of cholecystectomy (Acute) History of orthopedic surgery (Acute) History of partial hysterectomy (Acute) History of total hysterectomy (Acute) Family History Mother Malignant hyperthermia due to anesthesia Angina pectoris Arthritis Bowel disease Myocardial infarction Heart disease Hypertension High cholesterol CVA (cerebral vascular accident) Father Asthma Arthritis Myocardial infarction Heart disease High cholesterol Hypertension CVA (cerebral vascular accident) Leukemia Diabetes Grandmother Lung cancer Grandfather Diabetes Grandmother Diabetes Social History Smoking Status: Current every day smoker alcohol intake: never substance use type: does not use what type of physical activity do you participate in: walking, bicycling HPI HPI Chief Complaint: stomach problems no better Details: BRANDI [place]HAMMAD, is a 53 F who presents to the office today for an acute visit for abdominal pain which has since resolved. She has a past medical history as listed above. Patient was seen in the office on 11/27 and after previously discontinued on Metformin and was started on sitagliptin. Patient states took medication for 4 days and experienced diarrhea, bloating, nausea and vomiting. Patient then stopped taking medication after 4 days. Today in office denies any of the above symptoms and she stated once she stopped all the medications the symptoms improved. Denies any aggravating or alleviating factors. Her only complaint today in office is burn on right upper abdomen. Rating pain from burn 4 out of 10. States this happened on when she was cooking and pulled a pot of water off the stove. Patient has been using Silvadene cream with some relief and has been keeping burn covered with gauze at night. Denies any swelling or discharge from the burn. Denies any other signs of infection at this time. The patient otherwise denies any fever, chills, nausea, vomiting, shortness of breath, chest pain or pressure, palpitations, orthopnea, lower extremity edema, syncope or presyncopal episodes. ROS Const Constitutional: No weight change, body ache, chills, fatigue, sleep problems, fever(s), change in appetite, snoring, weakness, frequent falls, headache(s) or excessive sweating Eyes Eyes: No change in vision, eye pain, light sensitivity or blurry vision ENT ENT: No headache(s), abnormal hearing, ear pain, tinnitus, nasal congestion, sore throat or neck pain Resp Respiratory: No snoring, cough, shortness of breath or wheezing Cardio Cardiology: No excessive sweating, chest pain at rest, chest pain with exertion, shortness of breath, dyspnea on exertion, palpitations, orthopnea or lightheadedness Gastro GI: Positive for abdominal pain; no change in bowel habits, constipation, diarrhea, vomiting, nausea/dyspepsia or cramping Genitourinary-Female: No burning urination, painful urination, urinary incontinence, urinary frequency, abnormal vaginal bleeding, pelvic pain or other Musc Musculoskeletal: No neck pain, abnormal walking, joint pain, back pain, limited range of motion, numbness or tingling Skin Skin: Positive for wounds (burn on abdomen from cooking accident); no redness, dry skin, itching, lesions or rash Neuro Neurology: No weakness, frequent falls, headache(s), abnormal hearing, abnormal walking, numbness, tingling, abnormal speech, dizziness or memory loss Psych Psychiatric: No change in appetite, No memory loss, No anxiety, No depression, No Thoughts of harming yourself/Others Endo Endocrine: No fatigue, excessive sweating, cold intolerance, increased thirst/drinking, heat intolerance, flushing or increased hunger Aller/Imm Allergy/Immunologic: No wheezing, itchy eyes, hives or seasonal allergy symptoms Nicola/Lymp Hematologic/Lymphatic: No easy bleeding, easy bruising or enlarged lymph nodes Exam Const General: cooperative, comfortable, no acute distress Nutritional Appearance: average body habitus, well nourished Orientation: alert, oriented x3 Limitations: mental status not altered Resp Effort AND Inspection: normal respiratory effort, able to speak in complete sentences, normal respiratory pattern, symmetric chest movement, no audible wheezes, no cough Auscultation: Bilateral: Clear to Auscultation Cardio Rate: regular rate Heart Sounds: S1 normal, S2 normal, normal S1 and S2, no click, no gallops, no murmurs, no rubs GI Inspection: normal to inspection Auscultation: normal bowel sounds Palpation: soft, tender (in upper quadrant under burn) in the RUQ and in the LUQ Skin General: no rashes or lesions noted, elasticity normal, turgor normal Lesions: no lesions Rashes: no rashes Other: second-degree burn noted right upper and abdomen without signs of infection, approximately 4 cm x 2.5 cm. No extending erythema, warmth, or streaking. Neuro General: alert, awake, oriented x3 Psych Appearance: grossly normal Mental Status: mental status grossly normal Affect: normal affect Attitude: cooperative Thought Process: normal Assessment AND Plan 1. Abdominal pain R10.9 Plan This has resolved since stopping the sitagliptin. We will continue to follow in the future. So far patient has been not been able to tolerate metformin or sitagliptin. She wishes to hold off on all diabetic medications at this time. 2. Type 2 diabetes mellitus E11.9 Plan Patient unable to tolerate oral metformin or sitagliptin. Patient entirely refuses to trial any other medication at this time. She states that she will work on weight loss, carbohydrate restriction, and exercise. Will repeat A1c in 3 months prior to her next office visit. Did discuss with patient signs and symptoms of hypo-or hyperglycemia and patient is aware of these and will notify our office if she develops any of the symptoms. A nutrition referral was placed. Discussed with patient that if her A1c does not improve with these modifications, then we will most likely need to trial a different medication. Patient to follow-up in 3 months for her routine diabetic visit or sooner if needed. Orders Orders: Referrals: 3. Second degree burn Plan Patient does have a second-degree burn to her right upper abdomen as listed above, without any signs of infection at this time. She may continue applying the Silvadene cream daily and educated on signs and symptoms of infection that require urgent medical attention. Patient verbalized understand. 4. Tobacco abuse Z72.0 Plan Patient currently smokes 3 packs/day of cigarettes. She has the NicoDerm patch at home and states that within the next couple weeks she will trial the nicotine replacement patch. Educated again on the importance of smoking cessation. Will follow in the future Plan Detail Other Medications Discontinued: Follow Up 3 months or sooner if needed Coding Level of Care Code Off vis,est,level 3 Diagnoses Abdominal pain R10.9 Type 2 diabetes mellitus E11.9 Second degree burn Tobacco abuse Z72.0 12/09/18 1500 <Electronically signed by Andrea MENDEZ> Date Andrea MENDEZ Cosigner Signature: Date (if applicable) CC: LIPID PROFILE Collected: 11/27/2018 Status: F Source: [place] 2:17 PM [facility] REPOSITORY TYPE CODE TESTS RESULT OUT OF RANGE REFERENCE UNITS LAB L501.4900 200 mg/dL Normal CHOL 154 Result Comment: <200 mg/dL Desirable 200-240 mg/dL Borderline >240 mg/dL High Risk LAB L501.5000 mg/dL Normal TRIG 105 Result Comment: The drugs N-Acetylcysteine and Metamizole may falsely depress this assay. Serum Triglycerides Reference Interval Normal <150 mg/dL Borderline high 150 - 199 mg/dL High 200 - 499 mg/dL Very High > or = 500 mg/dL LAB L501.6400 mg/dL Normal HDL 50 Result Comment: The drugs N-Acetylcysteine and Metamizole may falsely depress this assay. Reference Range HDL <40 mg/dL Low HDL Cholesterol HDL >or= 60 mg/dL High HDL Cholesterol LAB L501.6500 0-130 mg/dL Normal LDL 83 LAB L501.6600 5-40 mg/dL Normal VLDL 21 Performed By: #### L500.4100 #### [facility] [address] [place], [address] INTERNAL MEDICINE Observed: 11/27/2018 Status: F Source: [place] OFFICE VISIT 12:49 PM [facility] REPOSITORY [facility] [address] [place] [address] [address] [place] [address] OFFICE VISIT Date of Service: 11/27/18 MR#: [id number] Acct: [id number] Name: BRANDI MUHAMMAD Dominic Rep #: [id number] : 1965 Provider: Nola Rodriguez MD Age/Sex: 53/F Location: [facility] Status: Signed Intake Vital Signs11/27/18 Body Mass Index (BMI) 27.4 11/27/18 Height 5 ft 4 in 11/27/18 Weight: 167 lb 11/27/18 Body Mass Index (BMI) 28.6 11/27/18 Blood Pressure 143/89 H Intake Visit Reasons: 2 wk f/u Chief Complaint: 2 week FU Allergies carbidopa Allergy (Verified 11/10/18 09:56) Unknown gabapentin Allergy (Verified 11/10/18 09:56) Unknown latex Allergy (Verified 11/10/18 09:56) Rash quetiapine fumarate [From Seroquel] Allergy (Verified 11/10/18 09:56) Other topiramate [From Topamax] Allergy (Verified 11/10/18 09:56) Hives tramadol HCl [From Ultram] Allergy (Verified 11/10/18 09:56) Other amitriptyline Adverse Reaction (Verified 11/10/18 09:56) Vomiting aspirin Adverse Reaction (Verified 11/10/18 09:56) Upset Stomach codeine Adverse Reaction (Verified 11/10/18 09:56) Vomiting cyclobenzaprine HCl [From Flexeril] Adverse Reaction (Verified 11/10/18 09:56) Upset Stomach etodolac [Etodolac] Adverse Reaction (Verified 11/10/18 09:56) Vomiting hydrocodone bitartrate [From Vicodin] Adverse Reaction (Verified 11/10/18 09:56) Vomiting ketorolac tromethamine [From Toradol] Adverse Reaction (Verified 11/10/18 09:56) Other metformin Adverse Reaction (Verified 11/27/18 10:45) Diarrhea morphine Adverse Reaction (Verified 11/10/18 09:56) Vomiting naproxen [From Naprosyn] Adverse Reaction (Verified 11/10/18 09:56) Upset Stomach propoxyphene napsylate [From Darvocet-N 100] Adverse Reaction (Verified 11/10/18 09:56) Vomiting Medications ALPRAZolam [Xanax] 2 mg PO BID PRN PRN 07/14/18 [History Confirmed 11/27/18] Atorvastatin Calcium 80 mg PO QHS 07/14/18 [History Confirmed 11/27/18] L.acidoph,Paracasei, B.lactis [Probiotic] 1 ea PO DAILY 07/14/18 [History Confirmed 11/27/18] Omeprazole 40 mg PO DAILY 07/14/18 [History Confirmed 11/27/18] Ipratropium/Albuterol Sulfate [Duoneb] 3 ml INHALATION Q4H.RT PRN 07/23/18 [History Confirmed 11/27/18] Topiramate [Trokendi Xr] 100 mg PO DAILY 09/16/18 [History Confirmed 11/27/18] ibuprofen 200 mg tablet 200 mg PO TID-QID PRN 11/10/18 [History Confirmed 11/27/18] ipratropium 20 mcg-albuterol 100 mcg/actuation mist for inhalation 1 puff INHALATION .QID g 11/10/18 [History Confirmed 11/27/18] lisinopril 10 mg tablet 10 mg PO DAILY #30 tab 12/11/18 [Rx Confirmed 11/27/18] paroxetine 40 mg tablet 40 mg PO DAILY 11/10/18 [History Confirmed 11/27/18] ondansetron HCl 4 mg tablet 4 mg PO BID-TID PRN #20 tab 11/11/18 [Rx Confirmed 11/27/18] sitagliptin 25 mg tablet 25 mg PO DAILY #30 tab 11/27/18 [Rx Confirmed 11/27/18] Nurse's Note: Pt stopped the Metformin due to nausea AND diarrhea PFSH Medical History Post concussion syndrome (Chronic) Vision problems (Chronic) Neuropathy (Chronic) IBS (irritable bowel syndrome) (Chronic) Hyperlipidemia (Chronic) High blood pressure (Chronic) Chronic headaches (Chronic) Hx of emotional problems (Chronic) Diabetes (Chronic) Carpal tunnel syndrome (Chronic) Asthma (Chronic) Seasonal allergies (Chronic) Surgical History History of (Acute) History of cholecystectomy (Acute) History of orthopedic surgery (Acute) History of partial hysterectomy (Acute) History of total hysterectomy (Acute) Family History Mother Malignant hyperthermia due to anesthesia Angina pectoris Arthritis Bowel disease Myocardial infarction Heart disease Hypertension High cholesterol CVA (cerebral vascular accident) Father Asthma Arthritis Myocardial infarction Heart disease High cholesterol Hypertension CVA (cerebral vascular accident) Leukemia Diabetes Grandmother Lung cancer Grandfather Diabetes Grandmother Diabetes Social History Smoking Status: Current every day smoker alcohol intake: never substance use type: does not use what type of physical activity do you participate in: walking, bicycling HPI HPI Chief Complaint: 2 week FU Details: BRANDI MUHAMMAD, is a 53yo F who presents to the office today for follow-up. Recently started on metformin due to poorly controlled diabetes. She was started on 500 mg twice daily however, patient states that she discontinued metformin about a week ago due to significant GI effects. She also had adjustments to her lisinopril due to poorly controlled blood pressure. Blood pressure does appear improved today at 143/89. She states that she is aggravated today and she would expect it would be better at home however, she does not routinely check her blood pressure at home. ROS Const Constitutional: No chills, fatigue, fever(s), frequent falls, malaise, weakness,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 Cholecystectomy - REMOVAL OF OVARY/TUBE(S) Right salpingectomy AND partial left salpingectomy - [facility] N/CARPAL TUNNEL SURG Carpal tunnel decomp,right - TLH W/T/O 250 G OR LESS 06/28/14 TLH, LSO, only right ovary remains Current Outpatient Prescriptions: promethazine (PHENERGAN) 25 mg tablet EVERY 6 HOURS NEEDED PRN For Nausea Disp: Rfl: atorvastatin (LIPITOR) 80 mg tablet TAKE 1 TABLET BY MOUTH EVERY DAY Disp: 30 tablet Rfl: 0 omeprazole (PRILOSEC) 20 mg capsule TAKE 1 CAPSULE BY MOUTH TWICE DAILY Disp: 60 capsule Rfl: 11 blood sugar diagnostic (FREESTYLE TEST) test strip TEST BLOOD SUGARS 2 TIMES DAILY. DX: E11.9, NON-INSULIN DEPENDENT Disp: 50 Strip Rfl: 11 VENTOLIN HFA 90 mcg/actuation inhaler INHALE 2 PUFFS INTO LUNGS INSTRUCTED EVERY 4 HOURS NEEDED FOR WHEEZING/SOB FOR UP TO 30 DAYS Disp: 18 Inhaler Rfl: 5 promethazine (PHENERGAN) 25 mg tablet Take 1 tablet by mouth every 6 hours as needed. Disp: 30 tablet Rfl: 0 budesonide-formoterol (SYMBICORT) 160-4.5 mcg/actuation inhaler Inhale 2 Puffs as instructed twice daily. Disp: 1 Inhaler Rfl: 11 hydrocortisone 2.5 % cream Apply 1 application to affected area twice daily. Apply to affected area sparingly to left left Disp: 20 g Rfl: 0 lisinopril (ZESTRIL, PRINIVIL) 5 mg tablet Take 1 tablet by mouth once daily. Disp: 90 tablet Rfl: 3 ipratropium-albuterol (DUONEB) 0.5 mg-3 mg(2.5 mg base)/3 mL nebu Inhale 3 mL as instructed every 6 hours as needed (wheezing). Use over 5-15minutes per nebulizer. Disp: 2 Vial Rfl: 11 ipratropium-albuterol (COMBIVENT RESPIMAT) 20-100 mcg/actuation mist Inhale 1 Puff as instructed four times daily as needed. Disp: 3 Cartridge Rfl: 11 ALPRAZolam (XANAX) 2 mg tablet Take 1 tablet by mouth at bedtime as needed (anxiety). [facility] Disp: Rfl: 0 COMPOUNDED PRESCRIPTION MEDICINE CUP AND TUBING, MOUTH PIECE FOR NEBULIZER MACHINE DX ASTHMA I45.40 Disp: 2 Each Rfl: 12 Blood-Glucose Meter (FREESTYLE LITE METER) monitoring kit Freestyle LITE Meter Kit - Dx: Type 2 DM - Uncontrolled E11.65, No insulin, Tests twice a day Disp: 1 Each Rfl: 0 ibuprofen (MOTRIN) 600 mg tablet Take 1 tablet by mouth every 6 hours as needed. FOR PAIN. Disp: 30 tablet Rfl: 1 cyclobenzaprine (FLEXERIL) 5 mg tablet Take 1 tablet by mouth three times daily as needed. Disp: 20 tablet Rfl: 0 No current facility-administered medications for this visit. ALLERGIES: Amitriptyline; Asa [Salicylates]; Carbidopa-Levodopa; Codeine; Darvocet A500 [Propoxyphene N-Acetaminophen]; Etodolac; Flexeril [Cyclobenzaprine Hcl]; Gabapentin; Latex; Morphine; Naprosyn [Naproxen]; Proair Hfa [Albuterol Sulfate]; Seroquel [Quetiapine Fumarate]; Toradol [Ketorolac]; Ultram [Tramadol Hcl]; Vicodin [Hydrocodone-Acetaminophen] PERSONAL HISTORY: Social History Marital status: Spouse name: Years of education: 11 Number of children: 2 Occupational History Occupation Employer Comment disability Social History Main Topics Smoking status: Current Every Day Smoker Packs/day: 1.00 Years: 30.00 Types: Cigarettes Smokeless tobacco: Never Used Alcohol use: No Drug use: Yes Comment: pot and speed as a teenager Sexual activity: Yes Partners with: Male control/protection: None FAMILY HISTORY: FAMILY HISTORY Problem Relation Age of Onset - Diabetes Mother - Heart Mother - Diabetes Father - Heart Father - Cancer Maternal Grandmother Lung - Diabetes Maternal Grandmother - Heart Maternal Grandmother - Diabetes Maternal Grandfather - Cancer Maternal Grandfather Lung - Cancer Paternal Grandmother - Heart Paternal Grandmother - Diabetes Paternal Grandmother - Cancer Paternal Grandfather - Diabetes Paternal Grandfather - Heart Paternal Grandfather - Cancer Sister pulmonary masses, ?ca REVIEW OF SYMPTOMS: negative except as noted above PHYSICAL EXAMINATION: VITALS: Blood pressure 138/80, weight 156 lb (70.8 kg), last menstrual period 04/13/2010. GENERAL: The patient is well nourished, well hydrated in no acute distress. , The patient is oriented to time, place, and person. NECK: Supple. No lynphadenopathy, normal thyroid, no thyromegaly. GENITALIA: Normal external genitalia, Urethral meatus normal, normal vagina and normal vaginal tone, normal adnexa without masses or tenderness, perineum WNL and Moderate tenderness on exam- pt did not tolerate well unable to palpate cyst WET PREP: Not indicated [facility] DONE AT [facility]: 5.4x5.2x4.37cm complex cyst with blood flow. Uterus and left ovary surgically absent IMPRESSION: 52yo with Pelvic pain, Right ovarian cyst PLAN: Pt declines expectant mgmt- reviewed Surgical procedure and risks associated with Oophorectomy including but not limited to osteopenia/osteoporosis, cardiac disease and surgical menopausal state. Pt has been counseled on risks/benefits and alternatives of surgery including but not limited to anesthesia, bleeding, infection, injury to pelvic structures including bowel, bladder, ureters and vessels. Pt wishes to proceed with surgery at this time. I have reviewed and updated past medical and surgical history, medications and allergies Marcela Swann MD Referring Provider: SELF [[id number]] Allergies As of Date: 07/16/2018 Noted Allergy Reaction AMITRIPTYLINE 10/10/2008 8 - GI Upset ASA (SALICYLATES) 10/14/2005 8 - GI Upset CARBIDOPA-LEVODOPA 01/25/2009 Comments: Made have suicidal ideations, tremors- quit taking CODEINE 10/14/2005 8 - GI Upset DARVOCET A500 (PROPOXYPHENE N-MOUNA*04/06/2008 8 - GI Upset ETODOLAC 10/10/2008 8 - GI Upset FLEXERIL (CYCLOBENZAPRINE HCL) 12/30/2012 14 - Other: See Comments Comments: nausea GABAPENTIN 04/06/2008 Comments: [place] high LATEX 05/02/2009 2 - Rash MORPHINE 06/07/2006 1 - Mental Status Change NAPROSYN (NAPROXEN) 12/28/2010 8 - GI Upset PROAIR HFA (ALBUTEROL SULFATE) 04/15/2012 14 - Other: See Comments Comments: works but makes her throat feel tight, doesn't make breathing worse SEROQUEL (QUETIAPINE FUMARATE) 11/19/2007 Comments: [place] drunk at high doses TORADOL (KETOROLAC) 07/09/2018 16 - Unknown Comments: Skin crawling ULTRAM (TRAMADOL HCL) 10/26/2007 1 - Mental Status Change VICODIN (HYDROCODONE-ACETAMINOPHE*10/26/2007 11 - Vomiting Date Reviewed: 07/16/2018 Reviewed by: Marcela Swann - Fully Assessed Reason for Visit: Follow Up [171] Primary Visit Diagnosis:Pelvic pain in female [R10.2] Other Visit Diagnosis:Cyst of right ovary [N83.201] Order(s):ibuprofen (MOTRIN) 600 mg tabletTake 1 tablet by mouth every 6 hours as needed. FOR PAIN.Disp: 30 tabletRfl: 1 cyclobenzaprine (FLEXERIL) 5 mg tabletTake 1 tablet by mouth three times daily as needed.Disp: 20 tabletRfl: 0 CA 125 BLD [AGVU580] Order #: [id number] FUTURE Prescriptions as of 07/16/2018 Sig: PROMETHAZINE 25 MG TABLET EVERY 6 HOURS NEEDED PRN F* ATORVASTATIN 80 MG TABLET TAKE 1 TABLET BY MOUTH EVERY * OMEPRAZOLE 20 MG CAPSULE,MICHAELLE* TAKE 1 CAPSULE BY MOUTH TWICE* BLOOD SUGAR DIAGNOSTIC STRIPS TEST BLOOD SUGARS 2 TIMES LOLY* VENTOLIN HFA 90 MCG/ACTUATION* INHALE 2 PUFFS INTO LUNGS * PROMETHAZINE 25 MG TABLET Take 1 tablet by mouth every * BUDESONIDE-FORMOTEROL HFA 160* Inhale 2 Puffs as instructed * HYDROCORTISONE 2.5 % TOPICAL * Apply 1 application to affect* LISINOPRIL 5 MG TABLET Take 1 tablet by mouth once d* IPRATROPIUM-ALBUTEROL 0.5 MG-* Inhale 3 mL as instructed rusty* IPRATROPIUM 20 MCG-ALBUTEROL * Inhale 1 Puff as instructed f* ALPRAZOLAM 2 MG TABLET Take 1 tablet by mouth at bed* COMPOUNDED PRESCRIPTION MEDICINE CUP AND TUBING, MOUT* BLOOD-GLUCOSE METER KIT Freestyle LITE Meter Kit - Dx* IBUPROFEN 600 MG TABLET Take 1 tablet by mouth every * CYCLOBENZAPRINE 5 MG TABLET Take 1 tablet by mouth three * Problem List As Of Date 07/16/2018 Noted Resolved Moderate persistent asthma [J45.40] INVALID FOR* Pure hypercholesterolemia [E78.00] INVALID FOR*01/26/2016 More... SPRAIN OF NECK [S13.9XXA] INVALID FOR*01/25/2009 CERVICALGIA [M54.2] INVALID FOR*01/25/2009 Impaired fasting glucose [R73.01] INVALID FOR*10/18/2013 More... ACQ DEFORMITY OF TOE NOS [M20.60] INVALID FOR*01/25/2009 OTHER HAMMER TOE [M20.40] INVALID FOR*01/25/2009 HALLUX VALGUS [M20.10] INVALID FOR*01/25/2009 ENTHESOPATHY, SITE NOS [M77.9] INVALID FOR*01/25/2009 Pain in limb [M79.609] INVALID FOR*01/26/2016 More... 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 BIPOLAR - MOST RECENTLY MANIC W PSYCHOSIS [F31.* Abdominal pain, other specified site [R10.9] INVALID FOR*11/14/2016 More... Anemia, unspecified [D64.9] INVALID FOR*08/15/2016 More... SLEEP APNEA NOS [G47.30] INVALID FOR*02/14/2016 More... Routine General Medical Examination at a Health*INVALID FOR*06/02/2014 More... Microalbuminuria [R80.9] INVALID FOR*08/21/2015 Diabetes mellitus [E11.9] INVALID FOR*10/18/2013 Type II or unspecified type diabetes mellitus w* 10/18/2013 Acute gastritis without mention of hemorrhage [*INVALID FOR*01/26/2016 Capsulitis of ankle [M77.50] INVALID FOR*08/10/2015 Ovarian cyst [N83.209] INVALID FOR*01/26/2016 Hypertension [I10] INVALID FOR*01/26/2016 Hyperlipemia [E78.5] INVALID FOR*08/15/2016 Uncontrolled type 2 DM with microalbuminuria or*INVALID FOR*08/21/2015 Abdominal pain, epigastric [R10.13] INVALID FOR*03/09/2015 Nausea with vomiting [R11.2] INVALID FOR*03/09/2015 Type 2 diabetes mellitus with hypoglycemia (HCC*INVALID FOR*02/14/2016 Tobacco use disorder [F17.200] INVALID FOR* Hypertension goal BP (blood pressure) < 140/90 *INVALID FOR* Tension headache [G44.209] INVALID FOR* Diabetes mellitus type 2, controlled, without c*INVALID FOR* Hyperlipidemia [E78.5] INVALID FOR* JOHNNY on CPAP [G47.33, Z99.89] INVALID FOR* Depression [F32.9] INVALID FOR* Irritable bowel syndrome with both constipation*INVALID FOR* Prescriptions ordered this encounter Disp Refills Start End IBUPROFEN 600 MG TABLET 30 t* 1 07/16/2018 Route: ORAL Sig: Take 1 tablet by mouth every 6 hours as needed. FOR PAIN. CYCLOBENZAPRINE 5 MG TABLET 20 t* 0 07/16/2018 Route: ORAL Sig: Take 1 tablet by mouth three times daily as needed. Encounter Status:Closed by MARCELA SWANN MD on 07/17/18 EMERGENCY DEPARTMENT Observed: 07/14/2018 Status: F Source: [place] SUMMARY 2:59 PM [facility] REPOSITORY [facility] Medical Records Department [address] [place] [address] Emergency Department Summary 07/13/18 1650 MR#: [id number] Acct: [id number] Name: BRANDI MUHAMMAD Rep #: [id number] : 1965 52 From: Zamzam Marshall MD PCP: Phillip De Santiago MD Status: DEP ER - ER Visit Summary Date of Service: 07/13/18 Chief Complaint: Abdominal pain History of Present Illness: The patient is a 52 F with complaints of abdominal pain, back pain, nausea. Patient states she has had a several day history of back pain that is now wrapping around the left flank area. She does report nausea and urinary frequency. She states her temperature was up to 102.7 over the weekend. She has been controlling this with ibuprofen. Past abdominal surgery history is significant for cholecystomy, hysterotomy, and one ovary removed. Physical Examination: Blood pressure is 152/83, temperature 98.3, heart rate 98, respiratory rate 16, pulse ox 98% on room air. Patient is sitting upright in a well lit room but she is wearing sunglasses. Heart is regular rate and rhythm. Lungs sounds are clear. Abdomen is soft with no focal tenderness on exam when she is distracted. There is no guarding or rebound. Hypoactive bowel sounds are noted throughout. Back examination was no CVA tenderness. Test Results: CBC was normal white count and differential. Hemoglobin is 15.2. Chemistry studies normal. Urinalysis normal. CT flank shows nonspecific gastroenteritis that is mild. No sign of bowel obstruction. There is a large right adnexal cyst, likely ovarian. Ultrasound is recommended. Pelvic ultrasound reveals a large right ovarian cyst measuring 5.4 x 5.2 x 4.3 cm. There is mild fluid noted in the cul-de-sac. Emergency Department Course and Treatment: Patient was given IV fluids and Phenergan. She has multiple allergies to pain medication. On repeat evaluation patient is resting comfortably. She is given instructions on ovarian cyst. She will be given Phenergan for home. She is to follow-up with her primary care physician. Treatment Plan: [] Disposition: Discharge Impression: Right ovarian cyst This note was generated with Dragon dictation software. It may contain incorrect words, spelling, and punctuation that were not noted in review of the chart prior to signing ED Disposition - Plan for ED Patient: Disposition: Home or Assisted Living Chief Complaint: Abd Pain Instructions: ED Cyst Ovarian Prescriptions: proMETHazine tablet [Phenergan] 25 mg PO Q6H PRN PRN #10 tablet PRN Reason: Nausea Referrals: Phillip De Santiago MD [Primary Care Provider] - 1 Week if not improving What to do if you have Problems For any increased pain, shortness of breath, bleeding, nausea or vomiting, chest pain, or any unexpected problems, contact your Primary Care Provider. Call [facility] ([phone]) or report to the closest Emergency Room. Call 911 if necessary. 07/14/18 1459 <Electronically signed by Zamzam Marshall MD> Date Zamzam Marshall MD Cosigner Signature (If Indicated): Date CC: Phillip De Santiago MD EMERGENCY DEPARTMENT Observed: 07/14/2018 Status: F Source: [place] SUMMARY 2:17 PM [facility] REPOSITORY [facility] Medical Records Department [address] [place] [address] Emergency Department Summary 07/14/18 1359 MR#: [id number] Acct: [id number] Name: BRANDI MUHAMMAD Rep #: [id number] : 1965 52 From: Glory Ashton MD PCP: Phillip De Santiago MD Status: REG ER - ER Visit Summary Date of Service: 07/14/18 Chief complaint: Abdominal pain History of present illness: patient is a 52 F with complaints of abdominal pain, back pain, nausea. She was seen in the emergency room yesterday for same complaint. At that time she had lab work, CT scan, pelvic ultrasound. She was diagnosed with a right ovarian cyst. She was treated with Phenergan. She was advised to follow-up with her primary care physician. She returns today due to continued pain. She states the pain is actually better than it was yesterday but has not resolved. Past abdominal surgery history is significant for cholecystomy, hysterectomy, and one ovary removed. Physical Examination: Vitals are stable. Patient is afebrile. Alert no acute distress. HEENT exam is unremarkable. Neck is supple. Lungs are clear and equal bilaterally. Heart is regular rate and rhythm. Abdomen is soft nontender nondistended, no rebound or guarding Extremities are unremarkable. Skin is warm and dry. No focal neurologic deficit. Remainder of exam is unremarkable. Emergency Department Course and Treatment: Patient was given IV Dilaudid and Phenergan. She has multiple allergies to pain medication. On repeat evaluation patient is resting comfortably. She is advised to follow-up with her [facility]ER and primary care physician. She is advised return to ED if she has worsening complaints. Disposition: Discharge home Impression: Abdominal pain, ovarian cyst This note was generated with Inst[employer]ustr dictation software. It may contain incorrect words, spelling, and punctuation that were not noted in review of the chart prior to signing ED Disposition - Plan for ED Patient: Chief Complaint: Headache Instructions: ED Cyst Ovarian Referrals: Phillip De Santiago MD [Primary Care Provider] - Marcela Bullock MD [STAFF PHYSICIAN] - What to do if you have Problems For any increased pain, shortness of breath, bleeding, nausea or vomiting, chest pain, or any unexpected problems, contact your Primary Care Provider. Call [facility] ([phone]) or report to the closest Emergency Room. Call 911 if necessary. 07/14/18 1417 <Electronically signed by Glory Ashton MD> Date Glory Ashton MD Cosigner Signature (If Indicated): Date CC: Phillip De Santiago MD DISCHARGE INSTRUCTION Observed: 07/14/2018 Status: F Source: [place] 2:15 PM [facility] REPOSITORY [facility] Medical Records Department [address] [place] [address] Discharge Instruction 07/14/18 1414 MR#: [id number] Acct: [id number] Name: BRANDI MUHAMMAD Rep #: [id number] : 1965 52 From: Glory Ashton MD PCP: Phillip De Santiago MD Status: REG ER ED Disposition - Plan for ED Patient: Chief Complaint: Headache Instructions: ED Cyst Ovarian Referrals: Phillip De Santiago MD [Primary Care Provider] - Marcela Bullock MD [STAFF PHYSICIAN] - What to do if you have Problems For any increased pain, shortness of breath, bleeding, nausea or vomiting, chest pain, or any unexpected problems, contact your Primary Care Provider. Call [facility] ([phone]) or report to the closest Emergency Room. Call 911 if necessary. 07/14/18 1415 <Electronically signed by Glory Ashton MD> Date Glory Ashton MD Cosigner Signature (If Indicated): Date CC: Phillip De Santiago MD DISCHARGE INSTRUCTION Observed: 07/13/2018 Status: F Source: [place] 8:35 PM [facility] REPOSITORY [facility] Medical Records Department [address] [place] [address] Discharge Instruction 07/13/18 2033 MR#: [id number] Acct: [id number] Name: BRANDI MUHAMMAD Rep #: [id number] : 1965 52 From: Zamzam Marshall MD PCP: Phillip De Santiago MD Status: REG ER ED Disposition - Plan for ED Patient: Disposition: Home or Assisted Living Chief Complaint: Abd Pain Instructions: ED Cyst Ovarian Prescriptions: proMETHazine tablet [Phenergan] 25 mg PO Q6H PRN PRN #10 tablet PRN Reason: Nausea Referrals: Phillip De Santiago MD [Primary Care Provider] - 1 Week if not improving What to do if you have Problems For any increased pain, shortness of breath, bleeding, nausea or vomiting, chest pain, or any unexpected problems, contact your Primary Care Provider. Call [facility] ([phone]) or report to the closest Emergency Room. Call 911 if necessary. 07/13/182034 <Electronically signed by Zamzam Marshall MD> Date Zamzam Marshall MD Cosigner Signature (If Indicated): Date CC: Phillip De Santiago MD TRANSVAGINWILLIE Observed: 07/13/2018 Status: F Source: [place] NON- 6:04 PM [facility] REPOSITORY [facility] Imaging Services [address] [place] [id number] Transvaginal Non- MR#: [id number] Acct: [id number] Name: BRANDI MUHAMMAD Rep #: [id number] : 1965 F 52 From: Orlando Chow MD PCP: Phillip De Santiago MD Status: DEP ER Study: Transvaginal Non- Date of Exam: 07/13/18 Exam# [id number] Ordering Dr: Zamzam Marshall MD ADDENDUM by Orlando Chow MD on 07/15/18 at 1600 /Transvaginal Non- 07/15/18 1607 Date cc: Phillip De Santiago MD; Zamzam Marshall MD * Signed ADDENDUM by Orlando Chow MD on 07/15/18 at 1600 ADDENDUM ADDENDUM: The large right ovarian cyst appears to have some layering debris possibly hemorrhagic.. There is blood flow to the ovary Electronically Signed: Orlando Chow MD at 16:00 EDT , Service support , 07/15/18 1600 Date cc: Phillip De Santiago MD; Zamzam Marshall MD * Signed STUDY: ULTRASOUND OF THE FEMALE PELVIS - COMPLETE REASON FOR EXAM: Female, 52 years old. Pelvic pain LMP: TECHNIQUE: Transvaginal TECHNICAL QUALITY: Adequate. COMPARISON: None. FINDINGS: Uterus not visualized consistent with hysterectomy Right ovary is enlarged measuring 6.9 x 6.6 x 4.4 cm. There is a large cyst measuring approximately 5.4 x 5.2 x 4.37 years.. Left ovary is not visualized status post nephrectomy.. There is mild fluid in the cul-de-sac US/Transvaginal Non- IMPRESSION: Large right ovarian cyst measuring 5.4 x 5.2 x 4.3 cm with mild fluid in the cul-de-sac. Status post [place] LSO Electronically Signed: Orlando Chow MD at 19:28 EDT , Service support , CC: Phillip De Santiago MD; Zamzam Marshall MD Multi Site Leasing Consultant: Signed URINALYSIS, COMPLETE Collected: 07/13/2018 Status: F Source: [place] 5:00 PM [facility] REPOSITORY Order Comment: Order Date: 07/13/18 How was Urine Obtained? CLEAN CATCH TYPE CODE TESTS RESULT OUT OF RANGE REFERENCE UNITS LAB L400.3000 Yellow COLOR Normal Yellow LAB L400.3050 Clear Normal CLARITY Clear LAB L400.3200 Normal mg/dl Normal GLUCOSE, UR Normal LAB L400.3300 Negative mg/dL Normal BILIRUBIN URINE Negative LAB L400.3400 Negative mg/dl Normal KETONE UR Negative LAB L400.3465 1.002-1.030 Normal SP.GR. DIPSTX 1.010 LAB L400.3550 5.0 - 8.0 pH UR Normal 6.0 LAB L400.3600 Negative mg/dl PROT Normal DIPSTX Negative LAB L400.3700 Normal mg/dl Normal UROBILI Normal LAB L400.3750 Negative Normal NITRITE UR Negative LAB L400.3780 Negative /ul Normal OCCULT BLOOD-UR Negative LAB L400.3800 Negative /ul LEUK Normal ESTERASE Negative LAB L400.4050 0-5 /hpf WBC 0 Normal SEEN LAB L400.4100 0-5 /hpf 0 Normal RBC-UA SEEN LAB L400.4150 5-10 /hpf SQUAM 0 Normal EPI SEEN LAB L400.4300 None Seen /hpf 0 Normal BACTERIA SEEN LAB L400.4350 <or=2+ /hpf 0 Normal MUCUS, URINE SEEN Performed By: #### L400.0001 #### [facility] [address] [place], [place], [id number] BASIC METABOLIC Collected: 07/13/2018 Status: F Source: [place] PROFILE (BMP) 5:00 PM [facility] REPOSITORY TYPE CODE TESTS RESULT OUT OF RANGE REFERENCE UNITS LAB L501.0100 74-106 mg/dL Normal GLU 98 Result Comment: Please note revised GLUCOSE reference range effective 2018. LAB L501.1000 7-18 mg/dL Normal BUN 14 LAB L501.1100 0.55-1.02 mg/dL Normal CREAT,SERUM 0.68 Result Comment: The validity of the calculated GFR AND GFRAA in patients over 70 years has not been determined. Clinical correlation is essential. LAB L501.1110 >60 mL/min Normal EST GFR 96 Result Comment: Non- GFR Calc LAB L501.1115 >60 mL/min Normal EST GFR - AA 116 Result Comment: GFR Calc LAB L501.1255 ml/min Normal Estimated CRCL 82.62 LAB L501.1300 10-20 RATIO High BUN/CRE 20.6 LAB L501.2200 8.5-10 mg/dL Normal .1 CA 8.8 LAB L501.5300 136-14 mmol/L Normal 5 NA 140 LAB L501.5600 3.5-5. mmol/L Normal 1 K 4.0 Result Comment: Moderate Hemolysis, Result may be falsely increased. LAB L501.5900 98-107 mmol/L Normal CL 107 LAB L501.6100 21.0-32.0 mmol/L Normal CO2 28.0 LAB L501.6200 5-15 Normal 5 GAP Performed By: #### L500.2500 #### [facility] [address] [place], [address] CBC W/DIFF, AUTOMATED Collected: 07/13/2018 Status: F Source: [place] 5:00 PM [facility] REPOSITORY TYPE CODE TESTS RESULT OUT OF RANGE REFERENCE UNITS LAB L100.1000 4.4-11.0 K/mm3 Normal WBC 7.6 LAB L100.1200 4.2-5.4 M/mm3 Normal RBC 4.89 LAB L100.1300 12.0-15.0 g/dl High HGB 15.2 LAB L100.1400 37-47 % Normal HCT 45.0 LAB L100.1500 81-99 fL Normal MCV 92.0 LAB L100.1600 27.0-32.0 pg Normal MCH 31.1 LAB L100.1700 32-36 g/gl Normal MCHC 33.8 LAB L100.1810 11.6-14.6 % Normal RDW CV 13.6 LAB L100.1820 35.1-43.9 fl High RDW SD 45.4 LAB L100.1900 150-450 K/mm3 Normal PLT 278 LAB L100.2000 6.2-12.0 fl Normal MPV 10.3 LAB L100.2100 47-70 % Normal NEUT% 51.1 LAB L100.2200 19-41 % Normal LY% 40.2 LAB L100.2300 0-10 % Normal MONO% 6.7 LAB L100.2400 0-5 % Normal EO% 1.3 LAB L100.2500 0-1 % Normal BASO% 0.3 LAB L100.2550 0.0-0.9 % Normal IM GRAN % 0.400 Result Comment: IG% - Immature Granulocytes (promyelocytes, myelocytes and metamyelocytes) > 1% indicates that a LEFT SHIFT is Present. LAB L100.2620 2.0-7.7 X10 3/uL Normal Absolute Neut 3.9 LAB L100.2720 0.83-4.51 X10 3/ul Normal Absolute Lymph 3.06 Performed By: #### L100.0100 #### [facility] [address] [place], [address] ABDOMEN/PELVIS WITHOUT Observed: 07/13/2018 Status: F Source: [place] CONT 4:50 PM [facility] REPOSITORY [facility] Imaging Services [address] [place] [address] Abdomen/Pelvis without Cont MR#: [id number] Acct: [id number] Name: BRANDI MUHAMMAD Rep #: [id number] : 1965 F 52 From: Orlando Chow MD PCP: Phillip De Santiago MD Status: REG ER Study: Abdomen/Pelvis without Cont Date of Exam: 07/13/18 Exam# [id number] Ordering Dr: Zamzam Marshall MD STUDY: CT ABDOMEN AND PELVIS WITHOUT CONTRAST REASON FOR EXAM: Female, 52 years old. Abdominal pain with nausea RADIATION DOSAGE (If Supplied By Facility): CTDIvol = ( 12.43 ) mGy, DLP = ( 580.56 ) mGycm TECHNIQUE: Transaxial images were obtained from the dome of the diaphragm to the symphysis pubis without oral contrast, and without intravenous contrast. Sagittal and coronal images were reconstructed. Individualized dose optimization techniques were used for this CT. COMPARISON: August 28, 2016 FINDINGS: The visualized lung bases are unremarkable. The visualized portions of the heart are within normal limits. Normal liver. Gallbladder has been removed surgically. Normal spleen. Normal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 SUMMARY 12:59 AM [facility] REPOSITORY [facility] Medical Records Department [address] [place] [address] Emergency Department Summary 04/28/18 1659 MR#: [id number] Acct: [id number] Name: BRANDI MUHAMMAD Rep #: [id number] : 1965 52 From: Monty Gunderson MD PCP: ANDREA Martinez Status: DEP ER - ER Visit Summary Date of Service: 04/28/18 Chief Complaint: Headache History of Present Illness: The patient is a [address] Osmany patricia and Dr. Cuellar. She reports that she has a history of pseudotumor cerebri and postconcussive syndrome and has daily headaches. Her current headache began yesterday and is gradually gotten worse. It is similar to her prior headaches. It is a throbbing in the occipital location. It is 9 out of 10 at worst and 8 of 10 currently. Is worsened by light and dry heaves. It is relieved by nothing. She reports that she has vomited twice. No blood or emesis. She denies any recent injury to her head. Physical Examination: Vitals: Stable. Afebrile. Neck: Supple with no meningismus. Neuro: Cranial nerves II through XII are intact, 5 out of 5 strength throughout, normal sensation to light touch throughout. Normal gait. General: A AND O x 3. NAD. Cardiovascular exam: Regular rate and rhythm, no murmur, rub or gallop. Respiratory exam: Clear to auscultation bilaterally. No wheezes or stridor. Abdominal exam: Soft, nontender, nondistended, normal bowel sounds. No peritoneal signs. Extremity: No clubbing, cyanosis, or edema. Emergency Department Course and Treatment: Patient had an IV placed. She was given Phenergan, Benadryl, and Toradol IV has had significant relief. Treatment Plan: Patient will be discharged instructions to follow-up her primary care physician 1-2 days if not improving. Return to the emergency department for any worsening symptoms. Disposition: To home in improved and stable condition. Impression: 1. Cephalgia, recurrent. This note was generated with Instaclustr dictation software. It may contain incorrect words, spelling, and punctuation that were not noted in review of the chart prior to signing ED Disposition - Plan for ED Patient: Chief Complaint: Headache Instructions: ED Cephalgia Unspecified Referrals: Judie Hanna NP-C [Primary Care Provider] - 1-2 Days if not improving What to do if you have Problems For any increased pain, shortness of breath, bleeding, nausea or vomiting, chest pain, or any unexpected problems, contact your Primary Care Provider. Call [facility] ([phone]) or report to the closest Emergency Room. Call 911 if necessary. 04/29/18 0059 <Electronically signed by Monty Gunderson MD> Date Monty Gunderson MD Cosigner Signature (If Indicated): Date CC: AMBULATORY SERVICE REPRESENTATIVE-C Judie Hanna BRAIN WITHOUT Observed: 04/21/2018 Status: F Source: BRICE CONTRAST 4:29 PM [facility] REPOSITORY [facility] Imaging Services [address] [place] [address] Brain without Contrast MR#: [id number] Acct: [id number] Name: BRANDI MUHAMMAD Rep #: [id number] : 1965 F 52 From: Orlando Chow MD PCP: ANDREA Martinez Status: REG CLI Study: Brain without Contrast Date of Exam: 04/21/18 Exam# [id number] Ordering Dr: Dheeraj Ceron MD STUDY: MRI BRAIN WITHOUT CONTRAST REASON FOR EXAM: Female, 52 years old. Post concussion syndrome TECHNIQUE: Standardized multiplanar fat and water weighted pulse sequences were obtained. COMPARISON: CT of the brain on April 27, 2015 and MRI on October 09, 2011 FINDINGS: Normal size of the ventricles and extra-axial spaces for the patient's age. Normal white matter tracts of the supratentorial brain. Normal bilateral basal ganglia. Normal thalami. There is no extra-axial fluid accumulation. Normal flow voids within the major intracranial circulation suggesting patency by spin echo criteria. Empty sella deformity of uncertain clinical significance. Normal, infundibular stalk, optic chiasm and hypothalamus. Normal tectal plate and pineal gland. Foci of signal dropout in the inferior frontal lobes which may be consistent with hemosiderin secondary to old hemorrhagic contusions Normal midbrain, bharat and medulla. Normal cerebellum. Normal basal cisterns. Normal bilateral temporal bones. Normal bilateral internal auditory canals. No demonstrated orbital abnormality, within the constraints of a routine brain study. Minor mucosal thickening of the ethmoid air cells.. Normal calvarium and skull base. Normal visualized soft tissue structures. Normal visualized upper cervical spine. MRI/Brain without Contrast IMPRESSION: Empty sella deformity which may be consistent with pseudotumor cerebri. However clinical correlation is recommended Foci of signal dropout in the inferior frontal lobes which may be due to hemosiderin deposition secondary to old hemorrhagic contusions Electronically Signed: Orlando Chow MD at 18:27 EDT , Service support , CC: ANDREA Hanna; Collette Ceron MD [employer] Consultant: Signed ERYTHROCYTE SED RATE Collected: 04/14/2018 Status: F Source: [facility] 12:41 PM [facility] REPOSITORY TYPE CODE TESTS RESULT OUT OF RANGE REFERENCE UNITS LAB L102.0000 0-30 mm/hr Normal SED RATE < 1 Performed By: #### L101.9900 #### [facility] [address] [place], [address] EMERGENCY DEPARTMENT Observed: 04/02/2018 Status: F Source: [place] SUMMARY 5:24 PM [facility] REPOSITORY [facility] Medical Records Department [address] [place] [address] Emergency Department Summary 04/02/18 1437 MR#: [id number] Acct: [id number] Name: BRANDI MUHAMMAD Rep #: [id number] : 1965 52 From: Monty Gunderson MD PCP: ANDREA Martinez Status: DEP ER - ER Visit Summary Date of Service: 04/02/18 Chief Complaint: Headache History of Present Illness: The patient is a [address] Persaud in [place]. She reports that she has a headache that began yesterday. It is gradually gotten worse. It is a throbbing pain over the lateral portion of her head bilaterally. Is similar to prior headaches. Is 10 at 10 worsening a 10 currently. Is worsened by light and relieved by nothing. She reports she has been nausea and vomited 5 times. No blood or emesis. Physical Examination: Vitals: Stable. Afebrile. Neck: Supple with no meningismus. Neuro: Cranial nerves II through XII are intact, 5 out of 5 strength throughout, normal sensation to light touch throughout. Normal gait. General: A AND O x 3. NAD. Cardiovascular exam: Regular rate and rhythm, no murmur, rub or gallop. Respiratory exam: Clear to auscultation bilaterally. No wheezes or stridor. Abdominal exam: Soft, nontender, nondistended, normal bowel sounds. No peritoneal signs. Extremity: No clubbing, cyanosis, or edema. Emergency Department Course and Treatment: Patient had an IV placed. She was given Toradol, Benadryl, and Phenergan IV. She has had some relief. I instructed her that I will not treat her with opiate-based medications for her headache. Treatment Plan: She will be discharged with Phenergan and instructed to follow-up with her primary care physician 1 day if not improving. Disposition: To home in improved and stable condition. Impression: 1. Cephalgia. This note was generated with Instaclustr dictation software. It may contain incorrect words, spelling, and punctuation that were not noted in review of the chart prior to signing ED Disposition - Plan for ED Patient: Disposition: Home or Assisted Living Chief Complaint: Headache Instructions: ED Cephalgia Unspecified Prescriptions: proMETHazine suppository [Phenergan Suppository] 25 mg RECTAL Q6H PRN PRN #6 suppos. PRN Reason: Nausea proMETHazine tablet [Phenergan] 25 mg PO Q6H PRN PRN #10 tablet PRN Reason: Nausea Referrals: Judie Hanna NP-C [Primary Care Provider] - 1-2 Days if not improving What to do if you have Problems For any increased pain, shortness of breath, bleeding, nausea or vomiting, chest pain, or any unexpected problems, contact your Primary Care Provider. Call [facility] ([phone]) or report to the closest Emergency Room. Call 911 if necessary. 04/02/18 4963 <Electronically signed by Monty Gunderson MD> Date Monty Gunderson MD Cosigner Signature (If Indicated): Date CC: ANDREA PECK Collected: 03/11/2018 Status: F Source: [employer] 8:29 AM [facility] REPOSITORY TYPE CODE TESTS RESULT OUT OF REFERENCE UNITS RANGE LAB CHOL(LOINC 131-200 mg/dL ) Cholesterol 198 Result Comment: Cholesterol Reference Interval: Less than 200 Desirable 200-239 Borderline high risk 240 and above High risk LAB TRIG(LOINC) 40-150 mg/dL Triglycerides High 207 Result Comment: Triglyceride Reference Interval: Less than 150 Normal 150-199 Borderline high risk 200-499 High risk 500 or higher Very high risk LAB HD(LOINC) 35-90 mg/dL HDL Cholesterol 37 Result Comment: HDL Reference Interval: Less than 40 Low - high risk 60 or above Optimal/lowers risk LAB LDL(LOINC) 0-130 mg/dL LDL Cholesterol 120 Result Comment: LDL is a calculated result and requires a 12-hr fast. LDL Reference Interval: Less than 100 Optimal 100-129 Near or above optimal 130-159 Borderline high risk 160-189 High risk 190 and above Very high risk Performed By: #### LIPID, CMP, GFR #### [facility] [address] CMP Collected: 03/11/2018 Status: F Source: [employer]ONT[employer] 8:29 AM [facility] REPOSITORY TYPE CODE TESTS RESULT OUT OF REFERENCE UNITS RANGE LAB 1547-9 70-105 mg/dL GLUCOSE High 209 LAB NA(LOINC) 136-146 mEq/L Sodium Level 139 LAB K(LOINC) 3.5-5.1 mEq/L Potassium Level 3.8 LAB CL(LOINC) 98-107 mEq/L Chloride 102 LAB CO2(LOINC) 22-29 mEq/L CO2 26 LAB EBAL(LOINC mEq/L ) Electrolyte Balance 11.0 LAB BUN(LOINC) 7.0-18.0 mg/dL BUN 14.8 LAB CRE(LOINC) 0.6-1.2 mg/dL Creatinine Lvl (s) 0.7 LAB BC(LOINC) 7-27 ratio BUN/Creatinine 21 Ratio LAB CA(LOINC) 8.4-10.2 mg/dL Calcium Lvl 9.7 LAB PROT(LOINC 6.0-8.3 G/dL ) Total Protein 7.2 LAB ALB(LOINC) 3.5-5.0 G/dL Albumin Level 4.6 LAB GLB(LOINC) G/dL Globulin 2.6 LAB AG(LOINC) 1.1-2.5 ratio A/G Ratio 1.8 LAB BILT(LOINC 0.2-1.0 mg/dL ) Bili Total 0.6 LAB AP(LOINC) 40-135 IU/L Alk Phos 97 LAB AST(LOINC) 10-40 IU/L AST/SGOT 16 LAB ALT(LOINC) 10-35 IU/L ALT/SGPT 24 Performed By: #### LIPID, CMP, GFR #### [place] [address] [place], [place] [address] .GFR Collected: 03/11/2018 Status: F Source: [employer] 8:29 AM [facility] REPOSIT[facility] TYPE CODE TESTS RESULT OUT OF REFERENCE UNITS RANGE LAB GFRAA(LOINC ml/min/1.73 ) sqm GFR 102 Iranian Result Comment: GFR Population mean for , Non- Americans Ages 20-29 = 116 mL/min/1.73 sq.m. Ages 30-39 = 107 mL/min/1.73 sq.m. Ages 40-49 = 99 mL/min/1.73 sq.m. Ages 50-59 = 93 mL/min/1.73 sq.m. Ages 60-69 = 85 mL/min/1.73 sq.m. Ages 70+ = 75 mL/min/1.73 sq.m. Chronic Kidney Disease: Less than 60 mL/min/1.73 square meters End Stage Renal Disease: Less than 15 mL/min/1.73 square meters LAB GFRNO(LOINC) ml/min/1.73sqm GFR Non- >60 Result Comment: GFR Population mean for , Non- Americans Ages 20-29 = 116 mL/min/1.73 sq.m. Ages 30-39 = 107 mL/min/1.73 sq.m. Ages 40-49 = 99 mL/min/1.73 sq.m. Ages 50-59 = 93 mL/min/1.73 sq.m. Ages 60-69 = 85 mL/min/1.73 sq.m. Ages 70+ = 75 mL/min/1.73 sq.m. Chronic Kidney Disease: Less than 60 mL/min/1.73 square meters End Stage Renal Disease: Less than 15 mL/min/1.73 square meters Performed By: #### LIPID, CMP, GFR #### [facility] [address] [address] ALLERGIES ALLERGIES DATE TYPE / NAME / CODE REACTION SEVERITY SOURCE CODE 11/27/2018 Drug metformin/[id number]( Diarrhea Unknown [place] Allergy/41 RXNORM) [facility] [id number]([facility]) Repository 11/10/2018 Drug hydrocodone Vomiting Unknown [place] Allergy/41 bitartrate/[id number] [facility] 0442966( (RXNORM) [facility]) Repository 11/10/2018 Drug propoxyphene Vomiting Unknown [place] Allergy/41 napsylate/[id number]( [facility] 8862428( RXNORM) [facility]) Repository 11/10/2018 Drug cyclobenzaprine Upset Stomach Unknown [place] Allergy/41 HCl/[id number](RXNORM [facility] 0018343([facility]) Repository 11/10/2018 Drug ketorolac Other Unknown [place] Allergy/41 tromethamine/[id number] [facility] 0245650([facility](RXNORM) [facility]) Repository 11/10/2018 Drug tramadol Other Unknown [place] Allergy/41 HCl/[id number](RXNORM [facility] 8183844([facility]) Repository 11/10/2018 Drug quetiapine Other Unknown [place] Allergy/41 fumarate/R474790921(R Community 1346247( XNORM) [facility]) Repository 11/10/2018 Drug carbidopa/[id number]( Unknown Unknown [place] Allergy/41 RXNORM) Community 3398017([facility]) Repository 11/10/2018 Drug morphine/F463579107(R Vomiting Unknown [place] Allergy/41 XNORM) Community 3498055([facility]) Repository 11/10/2018 Drug codeine/R145975656(RX Vomiting Unknown [place] Allergy/41 NORM) Community 3572816([facility]) Repository 11/10/2018 Drug aspirin/[id number](RX Upset Stomach Unknown [place] Allergy/41 NORM) [facility] 6087763([facility]) Repository 11/10/2018 Drug naproxen/[id number](R Upset Stomach Unknown [place] Allergy/41 XNORM) Community 0175341([facility]) Repository 11/10/2018 Drug etodolac/V798103385(R Vomiting Unknown [place] Allergy/41 XNORM) Community 3184833([facility]) Repository 11/10/2018 Drug gabapentin/[id number] Unknown Unknown [place] Allergy/41 (RXNORM) Community 9191823([facility]) Repository 11/10/2018 Drug amitriptyline/M773032 Vomiting Unknown [place] Allergy/41 600(RXNORM) Community 7220656([facility]) Repository 11/10/2018 Drug topiramate/[id number] Hives Unknown [place] Allergy/41 (RXNORM) Community 8875107([facility]) Repository 11/10/2018 Drug latex/D606518474(RXNO Rash Unknown [place] Allergy/41 RM) Community 8417582([facility]) Repository 07/14/2018 Drug acetaminophen/A414664 Vomiting Unknown [place] Allergy/41 605(RXNORM) Community 4602573([facility]) Repository 07/09/2018 DRUG KETOROLAC UNKNOWN [facility] [place] 6305057( Repository OMED [facility]) 04/28/2018 Drug albuterol Swelling Unknown [place] Allergy/41 sulfate/S492302824(RX Community 7895000([facility]) Repository 12/30/2012 DRUG CYCLOBENZAPRINE HCL OTHER: SEE C [facility] [place] 0606495( Repository OMED CT) 04/15/2012 DRUG ALBUTEROL SULFATE OTHER: SEE C [facility] [place] 4616892( Repository OMED CT) 12/28/2010 DRUG NAPROXEN GI UPSET [facility] [place] 2338371( Repository OMED CT) 05/02/2009 DRUG LATEX RASH [place] [address] [address] [place] 8710653( Repository OMED CT) 01/25/2009 DRUG/19758 CARBIDOPA-LEVODOPA [facility] 1003(OME [place] D CT) Repository 10/10/2008 DRUG AMITRIPTYLINE GI UPSET [place] [address] [address] [place] 2961913(SN Repository OMED CT) 10/10/2008 DRUG ETODOLAC GI UPSET [address] 3440735(SN Repository OMED CT) 04/06/2008 DRUG/88170 PROPOXYPHENE GI UPSET [facility] 1003(SNOME N-ACETAMINOPHEN [place] D CT) Repository 04/06/2008 DRUG GABAPENTIN [address] 8509986(SN Repository OMED CT) 11/19/2007 DRUG QUETIAPINE FUMARATE [address] 4350094(SN Repository OMED CT) 10/26/2007 DRUG TRAMADOL HCL Mental Chg [address] 2441359(SN Repository OMED CT) 10/26/2007 DRUG/00678 HYDROCODONE-ACETAMINO Vomiting [facility] 1003(SNOME PHEN [place] D CT) Repository 06/07/2006 DRUG MORPHINE Mental Chg [address] 4930562(SN Repository OMED CT) 10/14/2005 Drug SALICYLATES GI UPSET [facility] Class/4195 [address] [place] [address](SNOM Repository ED CT) 10/14/2005 DRUG CODEINE GI UPSET [address] 0297001(SN Repository OMED CT) ENCOUNTERS ENCOUNTERS ADMIT/DISCHARGE ACCOUNT NUMBER ADMITTING ENCOUNTER LOCATION SOURCE CLASS 12/17/2018 [id number] Ambulatory BMSBuilding: [place] BMS.[facility] Repository 12/08/2018/12/08/19 [id number] Ambulatory BMSBuilding: [place] [address] Repository 11/27/2018 [id number] Ambulatory [facility] ding:LAB Repository 11/27/2018/11/27/20 [id number] Ambulatory BMSBuilding: [place] [address] Repository 11/10/2018 [id number] Ambulatory [facility] ding:LAB Repository 11/10/2018/11/10/20 [id number] Ambulatory BMSBuilding: [place] [address] Repository 10/30/2018/11/02/20 [id number] Ambulatory [address] Repository 10/06/2018/10/06/20 [id number] Emergency BBuilding:ER Ankur [address] [place] [address] Repository 10/06/2018/10/06/20 [id number] Emergency [place] ding:ED Repository 10/03/2018/10/03/20 [id number] Emergency [place] ding:ED Repository 10/03/2018/10/03/20 [id number] Ambulatory [address] Repository 09/16/2018/09/16/20 [id number] Emergency [place] ding:ED Repository 09/07/2018/09/07/20 [id number] Emergency [place] ding:ED Repository 08/18/2018/08/19/20 [id number] Ambulatory [address] Repository 08/11/2018/08/12/20 [id number] Ambulatory [address] Repository 08/05/2018/08/08/20 [id number] Ambulatory [address] Repository 07/23/2018/07/23/20 [id number] Ambulatory [address] ding:SDCRoom Repository : AC08 07/20/2018/07/20/20 [id number] Ambulatory [address] Repository 07/20/2018 [id number] Ambulatory BMSBuilding: [facility] Repository 07/17/2018 [id number] Ambulatory [facility] Repository 07/16/2018/07/20/20 [id number] Ambulatory [address] Repository 07/14/2018/07/14/20 [id number] Emergency [place] ding:ED Repository 07/13/2018/07/13/20 [id number] Emergency [place] ding:ED Repository 07/09/2018 [id number] Ambulatory [facility] Repository 07/09/2018/07/10/20 [id number] Ambulatory [address] Repository 05/29/2018/05/29/20 [id number] Emergency [place] ding:ED Repository 05/18/2018/05/20/20 [id number] Ambulatory [address] Repository 04/28/2018/04/28/20 [id number] Emergency [address] ding:ED Repository 04/21/2018 [id number] Ambulatory [facility] ding:MRI Repository 04/14/2018 [id number] Ambulatory [facility] ding:LAB Repository 04/03/2018 [id number] Ambulatory BBuilding:RA Ankur Mcnally [facility] Repository 04/02/2018/04/02/20 [id number] Emergency [address] ding:ED Repository 03/11/2018/03/15/20 [id number] Ambulatory [address] ding:[facility] Repository 02/03/2018/02/04/20 [id number] Emergency BBuilding:ER Ankur[address] Repository 01/12/2018 [id number] Ambulatory BBuilding: Ankur Mcnally [facility] Repository 01/09/2018/01/09/20 [id number] Emergency BBuilding:[address] Repository 12/31/2017/12/31/19 [id number] Emergency BBuilding:[address] Repository PAYERS PAYERS ENCOUNTER GUARANTOR PAYER SUBSCRIBER SOURCE 12/17/2018 BRANDI MILLS Primary BRANDI FRANKADDOB: Abraham MICHELLE Insurance:CARESOURCEP [id number] Number: [facility] [id number]: ([phone] [id number] Repository [phone] () Date:2018-12-17 [address]ATTN: [place] [address]SB: 12/17/2018 Secondary NOT GIVENUNK [place] Insurance:SELF PAY [facility] Number: Effective Repository Date:2018-12-17 12/08/2018 BRANDI MILLS Primary BRANDI FRANKADDOB: Abraham MICHELLE Insurance:CARESOURCEP [id number] [place], [place] Number: Hospital [id number]: (330 [id number] Repository [phone] (HP) Date:2018-12-04P [address]ATTN: [place] [address]QW: 12/08/2018 Secondary NOT GIVENUNK [place] Insurance:SELF PAY [facility] Number: Effective Repository Date:2018-12-07 11/27/2018 BRANDI J [id number] Primary BRANDI J GOADDOB: [place] MICHELLE Insurance:CARESOURCEP [id number] [facility] Number: Hospital [id number]: (330 [id number] Repository [phone] (HP) Date:2018-11-27P [address]ATTN: [place] [address]TT: 11/27/2018 Secondary NOT GIVENUNK [place] Insurance:SELF PAY [facility] Number: Effective Repository Date:2018-11-27 11/27/2018 BRANDI J [id number] Primary BRANDI J GOADDOB: [place] MICHELLE Insurance:CARESOURCEP [id number] [facility] Hospital Number: Hospital [id number]: (330 [id number] Repository [phone] (HP) Date:2018-11-10 [address]ATTN: [place] [address]JR: 11/27/2018 Secondary NOT GIVENUNK [place] Insurance:SELF PAY [facility] Number: Effective Repository Date:2018-11-23 11/10/2018 BRANDI J [id number] Primary BRANDI J GOADDOB: [place] MICHELLE Insurance:CARESOURCEP [id number] Central [facility] Hospital Number: Hospital [id number]: ([phone] [id number] Repository [phone] (HP) Date:2018-11-10P [address]ATTN: [place] [address]BX: 11/10/2018 Secondary NOT GIVENUNK [place] Insurance:SELF PAY [facility] Number: Effective Repository Date:2018-11-10 11/10/2018 BRANDI J [id number] Primary BRANDI J GOADDOB: Abraham MICHELLE Insurance:CARESOURCEP [id number] Central [facility] Number: Hospital [id number]: [phone] [id number] Repository [phone] (HP) Date:2018-11-05 [address]ATTN: [place] [address]DG: 11/10/2018 Secondary NOT GIVENUNK [place] Insurance:SELF PAY [facility] Number: Effective Repository Date:2018-11-09 10/06/2018 BRANDI J GOADDOB: Primary BRANDI J GOADDOB: [facility] [id number] Insurance:CARESOURCE [id number] Foundation [place] MEDICA[place]Policy [place]: [place], [place] [address]Yrz: [phone] [id number]: (HP) Date:2018-10-06 [id number] ()Tel: [phone] Name:[address] () [address] [place] [address]ZH: 10/06/2018 BRANDI Dominic [id number] Primary BRANDI J GOADDOB: [place] Insurance:CARESOURC [id number] [facility] Number: Hospital [address]Dxe: ([phone] [id number] Repository [phone] (HP) Date:2018-10-06 [address]ATTN: [place] [address]SU: 10/06/2018 Secondary NOT GIVENUNK [place] Insurance:SELF PAY [facility] Number: Effective Repository Date:2018-10-06 10/03/2018 BRANDI J [id number] Primary BRANDI Alfaro GOADDOB: [place] MICHELLE Insurance:CARESOURCEP [id number] [place] [facility] Number: Hospital [id number]: [phone] [id number] Repository [phone] (HP) Date:2018-10-03P [address]ATTN: [place] [address]WG: 10/03/2018 Secondary NOT GIVENUNK [place] Insurance:SELF PAY [facility] Number: Effective Repository Date:2018-10-03 09/16/2018 BRANDI J [id number] Primary BRANDI J GOADDOB: [place] MICHELLE Insurance:CARESOURCEP [id number] Central [facility] Hospital Number: Hospital [id number]: [phone] [id number] Repository [phone] (HP) Date:2018-09-16P [address]ATTN: [place] [address]UQ: 09/16/2018 Secondary NOT GIVENUNK [place] Insurance:SELF PAY [facility] Number: Effective Repository Date:2018-09-16 09/07/2018 BRANDI J [id number] Primary BRANDI Alfaro GOADDOB: [place] MICHELLE Insurance:CARESOURCEP [id number] Central [facility] Hospital Number: Hospital [address]Vdw: 330 [id number] Repository [phone] (HP) Date:2018-09-07P [address]ATTN: [place] [address]UA: 09/07/2018 Secondary NOT GIVENUNK [place] Insurance:SELF PAY [facility] Number: Effective Repository Date:2018-09-07 07/23/2018 BRANDI J [id number] Primary BRANDI J GOADDOB: [place] MICHELLE Insurance:CARESOURCEP [id number] [facility] Number: Hospital [id number]: ([phone] [id number] Repository [phone] (HP) Date:2018-07-17 [address]ATTN: [place] [address]WS: 07/23/2018 Secondary NOT GIVENUNK Abrahma Insurance:SELF PAY [facility] Number: Effective Repository Date:2018-07-17 07/20/2018 BRANDI J [id number] Primary BRANDI J GOADDOB: [place] MICHELLE Insurance:CARESOURCEP [id number] [place] Number: Hospital [id number]: 330 [id number] Repository [phone] (HP) Date:2018-07-17 [address]ATTN: [place] [address]SQ: 07/20/2018 Secondary NOT GIVENUNK [place] Insurance:SELF PAY [facility] Number: Effective Repository Date:2018-07-20 07/14/2018 Brandi J [id number] Primary Brandi J GoadDOB: [place] MICHELLE Insurance:CARESOURCEP [id number] [place] Number: Hospital [id number]: (330 [id number] Repository [phone] (HP) Date:2018-07-14 [address]ATTN: [place] [address]OD: 07/14/2018 Secondary NOT GIVENUNK [place] Insurance:SELF PAY [facility] Number: Effective Repository Date:2018-07-14 07/13/2018 Brandi J [id number] Primary Brandi J GoadDOB: [place]HELLE Insurance:CARESOURCEP [id number] [place] Number: Hospital [id number]: [phone] [id number] Repository [phone] (HP) Date:2018-07-13P [address]ATTN: [place] [address]ZV: 07/13/2018 Secondary NOT GIVENUNK [place] Insurance:SELF PAY [facility] Number: Effective Repository Date:2018-07-13 05/29/2018 Brandi J [id number] Primary Brandi J GoadDOB: [place] MICHELLE Insurance:CARESOURCEP [id number] [facility] Number: Hospital [id number]: ([phone] [id number] Repository [phone] (HP) Date:2018-05-29P [address]ATTN: [place] [address]AM: 05/29/2018 Secondary NOT GIVENUNK [place] Insurance:SELF PAY [facility] Number: Effective Repository Date:2018-05-29 04/28/2018 Brandi J [id number] Primary Brandi J GoadDOB: Abraham MICHELLE Insurance:CARESOURCEP [id number] Central [facility] Hospital Number: Hospital [id number]: ([phone]) [id number] Repository [phone] (HP) Date:2018-04-28P [address]ATTN: [place] [address]VS: 04/28/2018 Secondary NOT GIVENUNK [place] Insurance:SELF PAY [facility] Number: Effective Repository Date:2018-04-28 04/21/2018 Brandi J [id number] Primary Brandi J GoadDOB: [place] Insurance:CARESOURCEP [id number] Hospital [id number]: ([phone]) [id number] Repository [phone] (HP) Date:2018-04-15P [address]ATTN: [place] [address]JE: 04/21/2018 Secondary NOT GIVENUNK [place] Insurance:SELF PAY [facility] Number: Effective Repository Date:2018-04-15 04/14/2018 Brandi J [id number] Primary Brandi J GoadDOB: [place] Michelle Insurance:CARESOURCEP [id number] [facility] [place] [place]: Hospital [address]Gmb: ([phone]) [id number] Repository [phone] (HP) Date:2018-04-14 [address]ATTN: [place] [address]YA: 04/14/2018 Secondary NOT GIVENUNK [place] Insurance:SELF PAY [facility]: Effective Repository Date:2018-04-14 04/03/2018 BRANDI J GOADDOB: Primary BRANDI J GOADDOB: [facility] Insurance:[facility] [id number] Foundation [place] MEDICAIDPolicy [place] Rep[facility] [place] Number: [place] [address]Smf: 330 [id number]: (HP) Date:2018-04-02 [id number] ()Tel: [phone]) Name:[address] () [address] [place] [address]JE: 04/02/2018 Brandi [id number] Primary Brandi J GoadDOB: [place] Insurance:[facility] [id number] Psychiatric Centerpiotr [facility] Number: Hospital [id number]: ([phone] [id number] Repository [phone] (HP) Date:2018-04-02P [address]ATTN: [place] [address]GO: 04/02/2018 Secondary NOT GIVENUNK [place] Insurance:SELF PAY [facility] Number: Effective Repository Date:2018-04-02 03/11/2018 BRANDI J GOADDOB: Primary BRANDI J GOADDOB: [facility] Insurance:[facility] [id number] Foundation [place] MEDICAIDPolicy [place] Repository [facility] [place] Number: [place] [address]Atj: 330 [id number] [address]Sxd: Date:2018-03-113829 (HP)Tel: [phone] (HP) (WP) Name:MARY Lawrence 000-0000 (WP) [address] [place] [address]WP: 02/03/2018 BRANDI J GOADDOB: Primary BRANDI J GOADDOB: [facility] Insurance:[facility] [id number] Foundation [place] MEDICAIDPolicy [place] Repository [place] Number: [place] [address]Ynk: (638) [id number] 313[address]Zyx: Date:2018-02-03382 (HP)Tel: [phone] (HP) (WP) Name:MARY Lawrence 000-0000 (WP) [address] [place] [address]WP: 01/12/2018 BRANDI J GOADDOB: Primary BRANDI J GOADDOB: [facility] Insurance:[facility] [id number] Foundation [place] MEDICAIDPolicy [place] Repository [place] Number: [place] [address]Ulr: (587) [id number] [address]Dbq: Date:2018-01-083829 (HP)Tel: ([phone] (HP) (WP) Name:MARY Lawrence 000-0000 (WP) [address] [place] [address]WP: 01/09/2018 BRANDI J GOADDOB: Primary BRANDI J GOADDOB: [facility] Insurance:[facility] [id number] Foundation [place] MEDICAIDPolicy [place] Repository [place] Number: [place] [address]Jxf: (097) [id number] [id number]: Date:2018-01-09 [id number] (HP)Tel: [phone] (HP) (WP) Name:MARY Miguel0000 (WP) [address] [place] [address]PZ: 12/31/2017 BRANDI DOZIER: Primary BRANDI FRANKADDOB: [facility] [id number] Insurance:[facility] [id number] Foundation [place] MEDICAIDPolicy [place]: [place] [address]Btb: 330 [id number] [address]Dlx: Date:2017-12-31 [id number] (HP)Tel: [phone] (HP) (WP) Name:MARY Lawrence 000-0000 (WP) [address] [place] [address]WP:
== END ==
PROVIDERS: Family Provider Internal Medicine; PCP Internal Medicine; Referring Provider Internal Medicine; Visit Provider Internal Medicine
DX: E11.9 Type 2 diabetes mellitus without complications (principal)
CPT/HCPCS: 36415; 80048; 82043; 82570; 83036; 85025

== ENCOUNTER → 2018-11-27 14:07 | Outpatient (CLI) | payer MEDICAID, SELFPAY ==
[2018-11-27 10:47] VITALS: BMI 27.4
[2018-11-27 15:49] LABS: Cholesterol 154 mg/dL (200); High Density Lipoprotein 50 mg/dL; Triglycerides 105 mg/dL; Very Low Density Lipoprotein 21 mg/dL (5-40)
== END ==
PROVIDERS: Family Provider Internal Medicine; PCP Internal Medicine; Referring Provider Internal Medicine; Visit Provider Internal Medicine
DX: E78.5 Hyperlipidemia, unspecified (principal); E11.9 Type 2 diabetes mellitus without complications
CPT/HCPCS: 36415; 80061

== ENCOUNTER 2019-01-14 13:07 | Outpatient (RCR) | payer MEDICAID, SELFPAY ==
[2018-12-08 14:40] VITALS: BMI 27.4
== END 2019-01-28 23:59 ==
LOC: DC 13:07
PROVIDERS: Family Provider Internal Medicine; PCP Internal Medicine; Visit Provider Internal Medicine
DX: E11.9 Type 2 diabetes mellitus without complications (principal); Z71.3 Dietary counseling and surveillance
CPT/HCPCS: G0108

== ENCOUNTER 2019-02-10 15:00 | Outpatient (RCR) | payer MEDICAID, SELFPAY ==
[2018-12-08 14:40] VITALS: BMI 27.4
== END 2019-02-28 23:59 ==
LOC: DC 15:00
PROVIDERS: Family Provider Internal Medicine; PCP Internal Medicine; Visit Provider Internal Medicine
DX: E11.9 Type 2 diabetes mellitus without complications (principal)
CPT/HCPCS: 97802; G0108

== ENCOUNTER → 2019-02-11 10:25 | Outpatient (CLI) | payer MEDICAID, SELFPAY ==
[2019-02-11 10:16] VITALS: BMI 27.4
--- NOTE | 2019-02-11 10:27 | RAD_ITS ---
STUDY: X-RAY - CERVICAL SPINE REASON FOR EXAM: Female, 53 years old. Left arm and shoulder pain. TECHNIQUE: 5 view(s) of the cervical spine were obtained. COMPARISON: None FINDINGS: There are degenerative changes of the anterior atlantoaxial articulation. Normal odontoid process. Normal cervical lordosis. There is endplate spondylosis and disc space narrowing at C4-5. There is minimal retrolisthesis. The remainder of the disc spaces are preserved. Normal visualized intervertebral neuroforamina. There is no evidence of acute fracture or loss of vertebral axial height.. The soft tissue structures are unremarkable. RAD/Cerv Spine 4 or 5 Views IMPRESSION: Degenerative changes at the C4-5 level. Electronically Signed: Roger Lisa DO at 17:49 EDT Tel [phone], Service support ,
--- NOTE | 2019-02-11 10:27 | RAD_ITS ---
STUDY: X-RAY - LEFT WRIST REASON FOR EXAM: Chronic pain. TECHNIQUE: 3 view(s) of the wrist were obtained. COMPARISON: None. FINDINGS: Normal visualized distal radius and ulna. Normal radiocarpal articulation. Normal distal radioulnar articulation. Normal carpal bones. Normal carpal articulations. Normal carpometacarpal articulation of the thumb. Normal second through fifth carpometacarpal articulations. Normal visualized metacarpal bones. There is a small ossicle at the radial aspect of the first carpometacarpal joint. RAD/Wrist min 3 Views IMPRESSION: Small ossicle at the radial aspect of the first carpometacarpal joint. Otherwise, unremarkable x-ray examination of the left wrist. Electronically Signed: Collin Brush MD at 14:25 EDT Tel , Service support ,
== END ==
PROVIDERS: Family Provider Internal Medicine; PCP Internal Medicine; Referring Provider Physician Assistant; Visit Provider Physician Assistant
DX: R20.0 Anesthesia of skin (principal)
CPT/HCPCS: 72050; 73110

== ENCOUNTER 2019-03-24 15:42 | Emergency (ER) | payer MEDICAID, SELFPAY ==
[2019-03-18 11:03] VITALS: BMI 27.4
[2019-03-24 15:43] VITALS: BP 144/92; PULSE 94; RESP 18; TEMP 36.4; O2SAT 99; BMI 26.2
--- NOTE | 2019-03-24 16:06 | ED.DCSUM_ITS ---
History of Present Illness Chief Complaint: Headache Informant: Patient Onset: Days - 3 Context: Gradual Timing: Continuous Quality: Similar Prior Headaches Current Severity: Moderate Maximum Severity: Severe Associated Symptoms: Nausea, Photophobia Narrative: Patient presenting for evaluation secondary to headache. Patient reports that over the course the last 3 days she has had a gradual onset of worsening headache. Patient states that this is generalized over the entirety of her head and an aching type sensation. It has been associated with photophobia phonophobia and nausea. Patient reports to me that she has taken ibuprofen, pain patches, Excedrin, and prescription strength Motrin all of which have not helped. She does endorse that she has a mild amount of blurred vision with this, no numbness or weakness. She denies any recent head injuries, fevers, neck stiffness, rashes. Review of systems otherwise negative. Past Medical History - Allergies and Home Meds Allergies/Adverse Reactions: Allergies carbidopa Allergy (Verified 03/24/19 15:45) Unknown gabapentin Allergy (Verified 03/24/19 15:45) Unknown latex Allergy (Verified 03/24/19 15:45) Rash quetiapine fumarate [From Seroquel] Allergy (Verified 03/24/19 15:45) Other MENTAL CONFUSION topiramate [From Topamax] Allergy (Verified 03/24/19 15:45) Hives tramadol HCl [From Ultram] Allergy (Verified 03/24/19 15:45) Other MENTAL STATUS CHANGE amitriptyline Adverse Reaction (Verified 03/24/19 15:45) Vomiting aspirin Adverse Reaction (Verified 03/24/19 15:45) Upset Stomach codeine Adverse Reaction (Verified 03/24/19 15:45) Vomiting cyclobenzaprine HCl [From Flexeril] Adverse Reaction (Verified 03/24/19 15:45) Upset Stomach etodolac [Etodolac] Adverse Reaction (Verified 03/24/19 15:45) Vomiting hydrocodone bitartrate [From Vicodin] Adverse Reaction (Verified 03/24/19 15:45) Vomiting ketorolac tromethamine [From Toradol] Adverse Reaction (Verified 03/24/19 15:45) Other metformin Adverse Reaction (Verified 03/24/19 15:45) Diarrhea Also nausea metoclopramide [From Reglan] Adverse Reaction (Verified 03/24/19 15:45) Other CAME OUT OF MY SKIN morphine Adverse Reaction (Verified 03/24/19 15:45) Vomiting AND MENTAL STATUS CHANGE naproxen [From Naprosyn] Adverse Reaction (Verified 03/24/19 15:45) Upset Stomach propoxyphene napsylate [From Darvocet-N 100] Adverse Reaction (Verified 03/24/19 15:45) Vomiting Primary Care Physician: Nola Rodriguez MD [Primary Care Provider] - As Needed Surgical History: cholecystectomy Smoking Status: Current every day smoker Review of Systems All systems negative except as indicated General: Denies: Fever Eyes: Reports: Blurred Vision - bilaterally Gastrointestinal: Reports: Nausea Skin: Denies: Rash Neurological: Reports: Headache. Denies: Weakness, Parasthesia Physical Exam Vital Signs/Narrative: Vital Signs Temp Pulse Resp BP Pulse Ox 03/24/19 15:43 97.5 F L 94 18 144/92 H 99 Inital Vital Signs reviewed: Yes General: Well nourished, Well developed Head: NC, AT, - - Diffuse tenderness, not localizing to the temporally arteries Eyes: Perrl, EOMI, - - For endoscopy difficult due to photophobia, but no obvious hemorrhages noted ENT: Moist mucous membranes, No rhinorrhea Neck: Supple, No Lymphadenopathy, No JVD, Nontender, No Meningismus - Negative Brudzinski Kernig and jolt Cardiovascular: Regular rate, Regular rhythm, No murmurs Respiratory: No distress, CTA bilaterally, Chest nontender Abdomen: Soft, Nontender, Nondistended, Normal bowel sounds Extremities: Nontender, No edema Skin: Normal color, No rash Neuro: Alert, Oriented x3, Cranial nerves II-XII grossly intact, Normal S trength, Normal Sensation, Normal DTR, Normal Gait Psychological: Normal affect Diagnostic/Tx/Re-eval - Medical Decision Making Patient presented for evaluation secondary to headache. There is no red flag signs or symptoms, there is no indication for imaging, this seems consistent with her prior headaches. Patient has multiple medication allergies, so she was given 25 of Phenergan with a 1 L saline bolus and Solu-Medrol. Repeat evaluation of the patient at 1720 showed significant symptomatic improvement. I believe the patient likely has a migraine headache and that she can safely be discharged home. She will follow-up with primary care as needed. Disposition: Home ED Disposition - Plan for ED Patient: Disposition: Home or Assisted Living Diagnosis: Migraine headache Instructions: ED Headache Migraine Referrals: Nola Rodriguez MD [Primary Care Provider] - As Needed
[2019-03-24] MEDS: 0.9% Normal Saline 1,000 ML 999 ML IV (16:38)
[2019-03-24] MEDS: MethylPREDNISolone 125 MG/2 ML Vial IV (16:39)
[2019-03-24] MEDS: proMETHazine 25 MG/ML Syringe IV (16:39)
== END 2019-03-24 17:45 | disposition home or self-care (01) ==
PROVIDERS: Emergency Provider Emergency Medicine; Family Provider Internal Medicine; PCP Internal Medicine
DX: G43.909 Migraine, unspecified, not intractable, without status migrainosus (principal); F17.200 Nicotine dependence, unspecified, uncomplicated
CPT/HCPCS: 96361; 96374; 96375; 99283; J7030; A4216

== ENCOUNTER 2019-04-21 12:55 | Outpatient (RCR) | payer MEDICAID, SELFPAY ==
[2019-02-18 10:43] VITALS: BMI 27.4
[2019-04-15 10:09] VITALS: BMI 26.2
== END 2019-04-21 23:59 | disposition home or self-care (01) ==
LOC: DC 12:55
PROVIDERS: Family Provider Internal Medicine; PCP Internal Medicine; Visit Provider Internal Medicine
DX: E11.9 Type 2 diabetes mellitus without complications (principal); Z71.3 Dietary counseling and surveillance
CPT/HCPCS: G0108

== ENCOUNTER 2019-07-06 08:54 | Emergency (ER) | payer MEDICAID, SELFPAY ==
[2019-06-15 14:30] VITALS: BMI 26.2
[2019-07-06 08:55] VITALS: BP 155/90; PULSE 103; RESP 15; TEMP 36.7; O2SAT 98; BMI 25.5
[2019-07-06] MEDS: HYDROmorphone 1 MG/ML Syringe SC (09:53)
[2019-07-06] MEDS: proMETHazine 25 MG Tablet PO (09:53)
--- NOTE | 2019-07-06 10:09 | ED.VISSUMM ---
- ER Visit Summary Date of Service: 07/06/19 Chief Complaint: Pain History of Present Illness: The patient is a 53 F with right-sided low back pain. The pain started 3 days ago when she woke up. Worse with walking and moving. She never had this before. Denies any injuries. Denies weakness or numbness. Denies bowel changes. She tried heat, ice, and Advil with no improvement. Denies any other associated symptoms like fevers, skin changes, urinary changes, or GI symptoms. Physical Examination: Afebrile and vital signs unremarkable. Patient has right lumbar tenderness. Good strength and sensation. Good pulses distally. Normal skin. The remainder the exam is unremarkable. Test Results: None indicated Emergency Department Course and Treatment: There is no indication for imaging or other diagnostic testing. Patient was treated with Phenergan and Dilaudid as this had worked in the past. On reevaluation, patient was having continued pain, but requested to leave because she was tired and she needed her sister to take her home. Patient will be discharged to follow-up with her outpatient doctor. Treatment Plan: As above Disposition: Discharge Impression: 1. Right lumbar back pain This note was generated with ChoicePass dictation software. It may contain incorrect words, spelling, and punctuation that were not noted in review of the chart prior to signing ED Disposition - Plan for ED Patient: Referrals: Nola Rodriguez MD [Primary Care Provider] -
--- NOTE | 2019-07-06 10:11 | ED.DEP ---
ED Disposition - Plan for ED Patient: Instructions: BACK PAIN (Acute or Chronic) Referrals: Nola Rodriguez MD [Primary Care Provider] -
[2019-07-06 10:15] VITALS: PULSE 87; RESP 18; O2SAT 99
== END 2019-07-06 10:16 | disposition home or self-care (01) ==
LOC: ED 09:22
PROVIDERS: Emergency Provider Emergency Medicine; Family Provider Internal Medicine; PCP Internal Medicine
DX: M54.5 Low back pain (principal); E11.9 Type 2 diabetes mellitus without complications; I10 Essential (primary) hypertension; E78.00 Pure hypercholesterolemia, unspecified; Z72.0 Tobacco use; Z79.899 Other long term (current) drug therapy
CPT/HCPCS: 96372; 99282

== ENCOUNTER 2019-07-14 15:05 | Emergency (ER) | payer MEDICAID, SELFPAY ==
[2019-07-14 13:17] VITALS: BMI 26.4
[2019-07-14 15:05] VITALS: BP 132/91; PULSE 106; RESP 16; TEMP 36.8; O2SAT 98; BMI 27.3
--- NOTE | 2019-07-14 15:35 | ED.DEP ---
ED Disposition - Plan for ED Patient: Instructions: BACK AND NECK PAIN, General Referrals: Nola Rodriguez MD [Primary Care Provider] -
[2019-07-14] MEDS: HYDROmorphone 1 MG/ML Syringe IM (15:40)
[2019-07-14] MEDS: proMETHazine 25 MG Tablet PO (15:40)
--- NOTE | 2019-07-14 15:40 | ED.DCSUM_ITS ---
- ER Visit Summary Date of Service: 07/14/19 Chief Complaint: Back pain History of Present Illness: The patient is a 53 F presenting with back pain. Patient states this started approximate 1.5 weeks ago. She was seen by her primary care physician today and started on steroids. She states she was set up to have imaging as well. She was told that the steroids would take 24 hours to start working and she was advised to come into the ED for pain control. She has been taking Advil at home. She denies injury. Denies bowel or bladder incontinence. Denies fever. Denies numbness or weakness. She is able to ambulate. She also started antibiotics today for facial cellulitis. Denies vision changes. Physical Examination: Vitals are stable. Patient is afebrile. Alert no acute distress. HEENT exam right periorbital erythema. No pain with extraocular motion Neck is supple. No meningismus Lungs are clear and equal bilaterally. Heart is regular rate and rhythm. Abdomen is soft nontender nondistended. Back right paraspinal lumbar muscle tenderness. Straight leg raise positive at 30 degrees on the right. Extremities are unremarkable. Normal distal pulses Skin is warm and dry. No rash No focal neurologic deficit. Normal strength and sensation Remainder of exam is unremarkable. Emergency Department Course and Treatment: Patient has multiple allergies, she was given 1 dose of Dilaudid, Phenergan. She is advised to continue follow-up with her primary care physician. Advised to return to the ED for worsening complaints. Disposition: Discharged home Impression: Right lower back pain, sciatica This note was generated with mobintent dictation software. It may contain incorrect words, spelling, and punctuation that were not noted in review of the chart prior to signing ED Disposition - Plan for ED Patient: Instructions: BACK AND NECK PAIN, General Referrals: Nola Rodriguez MD [Primary Care Provider] -
[2019-07-14 15:56] VITALS: PULSE 67; RESP 18; O2SAT 99
== END 2019-07-14 15:57 | disposition home or self-care (01) ==
LOC: ED 15:50
PROVIDERS: Emergency Provider Emergency Medicine; Family Provider Internal Medicine; PCP Internal Medicine
DX: M54.41 Lumbago with sciatica, right side (principal); L03.211 Cellulitis of face; J45.909 Unspecified asthma, uncomplicated; E11.9 Type 2 diabetes mellitus without complications; I10 Essential (primary) hypertension; F41.9 Anxiety disorder, unspecified; E78.00 Pure hypercholesterolemia, unspecified; Z79.2 Long term (current) use of antibiotics; Z79.52 Long term (current) use of systemic steroids; Z79.51 Long term (current) use of inhaled steroids; Z79.899 Other long term (current) drug therapy
CPT/HCPCS: 96372; 99283

== ENCOUNTER → 2019-07-15 | Outpatient (CLI) | payer MEDICAID, SELFPAY ==
[2019-07-14 15:05] VITALS: BMI 27.3
--- NOTE | 2019-07-15 15:38 | RAD_ITS ---
STUDY: X-RAY - LUMBAR SPINE REASON FOR EXAM: Female, 53 years old. Low back pain. TECHNIQUE: 3 view(s) of the lumbar spine were obtained. COMPARISON: CT scan 07/13/2018. FINDINGS: Normal lumbar lordosis. There is no substantial scoliosis. There is 6 mm anterolisthesis of L4 on L5, which was not present previously. There is otherwise normal alignment of the vertebrae. Normal vertebral bodies and endplates. There is mild multilevel loss of disc height most pronounced at L3-L4 and L4-L5. Otherwise unremarkable disc space heights. There is no demonstrated fracture. There is atherosclerotic calcification of the abdominal aorta without a demonstrated aneurysm. RAD/Lumbar Spine 2 or 3 Views IMPRESSION: 6 mm anterolisthesis of L4 on L5 which was not present on previous study. Mild degenerative disc disease otherwise. Electronically Signed: Paulo Childress MD at 16:02 EDT , Service support ,
== END | disposition home or self-care (01) ==
LOC: HPRAD 15:35
PROVIDERS: Family Provider Internal Medicine; PCP Internal Medicine; Referring Provider Nurse Practitioner Family; Visit Provider Nurse Practitioner Family
DX: M54.41 Lumbago with sciatica, right side (principal)
CPT/HCPCS: 72100

== ENCOUNTER 2019-08-20 11:34 | Emergency (ER) | payer MEDICAID, SELFPAY ==
[2019-08-17 13:49] VITALS: BMI 27.8
[2019-08-20 11:36] VITALS: BP 138/90; PULSE 106; RESP 18; TEMP 36.9; O2SAT 99; BMI 25.8
--- NOTE | 2019-08-20 12:11 | ED.VISSUMM ---
- ER Visit Summary Date of Service: 08/20/19 Chief Complaint: Pain History of Present Illness: The patient is a 54 F with low back pain. Pain is worse on the right side. Exacerbated from sitting on bleachers yesterday. She has chronic pain from a herniated disc. Patient has a lot of pain with standing and walking. She tried Excedrin, TENS unit, heat, and ice, with no improvement. No new symptoms or injuries. Physical Examination: Afebrile and vital signs unremarkable except for heart rate of 106. Patient is standing, bent forward, holding onto the bed. Right lower back pain, tenderness with light touch. Strength and sensation intact. Abdomen unremarkable. Skin unremarkable. Test Results: None indicated Emergency Department Course and Treatment: Patient treated with 1 dose of Dilaudid and Phenergan, as this has worked in the past. Patient will be discharged. She does have outpatient follow-up arranged for her chronic back pain. Treatment Plan: As above Disposition: Discharge Impression: 1. Low back pain This note was generated with [employer] dictation software. It may contain incorrect words, spelling, and punctuation that were not noted in review of the chart prior to signing ED Disposition - Plan for ED Patient: Referrals: Nola Rodriguez MD [Primary Care Provider] -
--- NOTE | 2019-08-20 12:13 | ED.DEP ---
ED Disposition - Plan for ED Patient: Instructions: BACK PAIN (Acute or Chronic) Referrals: Nola Rodriguez MD [Primary Care Provider] -
[2019-08-20] MEDS: proMETHazine 25 MG/ML Syringe 12.5 MG IM (12:18)
[2019-08-20] MEDS: HYDROmorphone 1 MG/ML Syringe SC (12:18)
== END 2019-08-20 12:44 | disposition home or self-care (01) ==
LOC: ED 12:30
PROVIDERS: Emergency Provider Emergency Medicine; Family Provider Internal Medicine; PCP Internal Medicine
DX: M54.5 Low back pain (principal); G89.29 Other chronic pain; J45.909 Unspecified asthma, uncomplicated; E11.9 Type 2 diabetes mellitus without complications; I10 Essential (primary) hypertension; E78.00 Pure hypercholesterolemia, unspecified; Z79.51 Long term (current) use of inhaled steroids; Z72.0 Tobacco use; Z79.899 Other long term (current) drug therapy
CPT/HCPCS: 96372; 99281

== ENCOUNTER → 2019-08-31 | Outpatient (CLI) | payer MEDICAID, SELFPAY ==
[2019-08-17 13:49] VITALS: BMI 27.8
[2019-08-20 11:36] VITALS: BMI 25.8
--- NOTE | 2019-08-31 13:13 | CT_ITS ---
STUDY: LOW DOSE CT LUNG CANCER SCREENING REASON FOR EXAM: Female, 54 years old. Patient smoked 3 packs per day for 44 years. RADIATION DOSAGE (If Supplied By Facility): CTDIvol = ( 2.01 ) mGy, DLP = ( 69.97 ) mGycm TECHNIQUE: No contrast was administered. Low dose technique was utilized (average mAS-38 and kVp 120). 1.25 mm axial source images with a slice interval of 1.25-mm were reconstructed in lung windows. 2.5 mm axial source images with a slice interval of 2.5-mm were reconstructed in lung windows. 5.0 mm axial source images with a slice interval of 5.0-mm were reconstructed in soft tissue windows. Nodule measured using lung windows on PACS and/or independent workstation with automated measurement of minimum and maximum diameter. Nodule measurement reported as average diameter rounded to the nearest whole number. Growth is defined as an increase ins size of greater than 1.5 mm. COMPARISON: None. NODULES: No suspicious nodules are seen. Emphysema: Mild scarring in the anterior aspect of the right middle lobe and lingular segment of the left upper lobe. Mild bibasilar scarring as well. Endobronchial lesion: None Aorta: Atherosclerotic plaques. Coronary arteries: Coronary artery calcifications. Heart: Unremarkable Pulmonary artery: Unremarkable Mediastinal nodes: None significant Other chest and abdominal findings: CT/Low Dose CT Lung Screening IMPRESSION: Lung-RADS category 2 - Continue annual screening with LDCT in 12 months. IMPORTANT NOTES FOR USE: ACR Lung-RADS Version 1.0 Assessment Categories Release Date: March 28, 2014 Category: Coded 0-4 bases on nodule(s) with highest degree of suspicion. Negative screen is defined as categories 1 and 2; a positive screen is defined as categories 3 and 4. Category 3 and 4A nodules that are unchanged on interval CT should be coded as category 2, and individuals returned to screening in 12 months. Category 4X: Category 3 or 4 nodules with additional imaging findings that increase the suspicion of lung cancer, such as spiculation, GGN that doubles in size in 1 year, enlarged lymph notes, etc. Category Modifiers: S (significant finding unrelated to lung cancer) and C (prior history of treated lung cancer) may be added to the 0-4 Lung-RADS Electronically Signed: Clayton Grimm, at 14:37 EDT , Service support ,
== END | disposition home or self-care (01) ==
LOC: CT 13:13
PROVIDERS: Family Provider Internal Medicine; PCP Internal Medicine; Referring Provider Nurse Practitioner Family; Visit Provider Nurse Practitioner Family
DX: F17.210 Nicotine dependence, cigarettes, uncomplicated (principal); Z12.2 Encounter for screening for malignant neoplasm of respiratory organs
CPT/HCPCS: G0297

== ENCOUNTER 2019-09-30 14:33 | Emergency (ER) | payer MEDICAID, SELFPAY ==
[2019-09-10 13:46] VITALS: BMI 27.4
[2019-09-30 14:33] VITALS: BP 157/96; PULSE 93; RESP 16; TEMP 36.9; O2SAT 99; BMI 25.8
--- NOTE | 2019-09-30 15:15 | ED.VISSUMM ---
- ER Visit Summary Date of Service: 09/30/19 Chief Complaint: Low back pain History of Present Illness: The patient is a 54 F who has low back pain. Started yesterday and got worse. She has chronic back pain and it got worse yesterday. Is in the lumbar region. Movement makes it worse. It radiates down the right leg. She is in physical therapy for her back pain. She has Advil at home which is not working. She is also tried ice and heat. She denies any injuries to this area. Physical Examination:. Heart is regular. Lungs are clear. Abdomen soft. Back is tender diffusely in the lumbar region. Her neurologic exam is normal Test Results: None performed Emergency Department Course and Treatment: Without any new trauma I do not feel x-rays are needed. This is an acute exacerbation of her chronic pain. She has multiple allergies therefore she will be given 1/2 mg of Dilaudid and oral Phenergan due to some nausea. I will send her home with steroids and nausea medications. She will follow-up with her doctor Treatment Plan: [] Disposition: Discharge Impression: Acute exacerbation of chronic low back pain This note was generated with [employer] dictation software. It may contain incorrect words, spelling, and punctuation that were not noted in review of the chart prior to signing ED Disposition - Plan for ED Patient: Referrals: Nola Rodriguez MD [Primary Care Provider] -
--- NOTE | 2019-09-30 15:17 | DCINST.ED_ITS ---
ED Disposition - Plan for ED Patient: Disposition: Home or Assisted Living Instructions: BACK PAIN (Acute or Chronic) Prescriptions: Prednisone [Deltasone] 40 mg PO DAILY #10 tab Transmission Status: Pending to [facility]/pharmacy #[id number] proMETHazine tablet [Phenergan] 25 mg PO Q6H PRN PRN #10 tab PRN Reason: Nausea Transmission Status: Pending to [facility]/pharmacy #[id number] Referrals: Nola Rodriguez MD [Primary Care Provider] - Additional Instructions: Your prescriptions were electronically transmitted to [facility] in [place]
--- NOTE | 2019-09-30 15:17 | ED.DEP ---
ED Disposition - Plan for ED Patient: Disposition: Home or Assisted Living Instructions: BACK PAIN (Acute or Chronic) Prescriptions: Prednisone [Deltasone] 40 mg PO DAILY #10 tab Transmission Status: Pending to [facility]/pharmacy #[id number] proMETHazine tablet [Phenergan] 25 mg PO Q6H PRN PRN #10 tab PRN Reason: Nausea Transmission Status: Pending to [facility]/pharmacy #[id number] Referrals: Nola Rodriguez MD [Primary Care Provider] - Additional Instructions: Your prescriptions were electronically transmitted to [facility] in [place]
[2019-09-30] MEDS: proMETHazine 25 MG Tablet PO (15:37)
[2019-09-30] MEDS: HYDROmorphone 0.5 MG/0.5 ML SYRINGE IM (15:38)
[2019-09-30 16:02] VITALS: RESP 16
== END 2019-09-30 16:02 | disposition home or self-care (01) ==
LOC: ED 15:23
PROVIDERS: Emergency Provider Emergency Medicine; Family Provider Internal Medicine; PCP Internal Medicine
DX: M54.5 Low back pain (principal); G89.29 Other chronic pain; Z72.0 Tobacco use
CPT/HCPCS: 96372; 99283

== ENCOUNTER 2019-10-04 13:26 | Emergency (ER) | payer MEDICAID, SELFPAY ==
[2019-10-04 13:27] VITALS: BP 148/96; PULSE 90; RESP 20; TEMP 36.3; O2SAT 99; BMI 28.0
--- NOTE | 2019-10-04 14:33 | ED.VIS.BACK ---
History of Present Illness Chief Complaint: Back Informant: Patient Onset: Month(s) Context: Gradual Onset Injury: Fall Timing: Waxes and wanes Quality: Throbbing Narrative: Patient is a 54-year-old female with multiple chronic pain issues but also chronic back pain presenting with exacerbation of her back pain. She states the pain was so severe that she fell earlier today. She landed on her right lower back which is where she has her pain. Patient states she is been diagnosed with a bulging disc and subsequent sciatica. She has appointment to see pain management in 2 days to get established. She is also getting set up to follow-up with [facility]. Patient states in the past she is received a shot of Dilaudid which helps. She notes that she has had nausea and sweats when she gets bad spasms in her back. This is unchanged from her baseline. She did take Phenergan earlier today. Patient denies any numbness or tingling. She has associated pain in her legs which she attributes to the pain in her back. She denies any fever or chills. She denies any history of IV drug abuse or cancer. She denies any saddle anesthesia or incontinence. Past Medical History - Allergies and Home Meds Allergies/Adverse Reactions: Allergies carbidopa Allergy (Verified 10/04/19 13:29) Unknown gabapentin Allergy (Verified 10/04/19 13:29) Unknown latex Allergy (Verified 10/04/19 13:29) Rash quetiapine fumarate [From Seroquel] Allergy (Verified 10/04/19 13:29) Other MENTAL CONFUSION topiramate [From Topamax] Allergy (Verified 10/04/19 13:29) Hives tramadol HCl [From Ultram] Allergy (Verified 10/04/19 13:29) Other MENTAL STATUS CHANGE amitriptyline Adverse Reaction (Verified 10/04/19 13:29) Vomiting aspirin Adverse Reaction (Verified 10/04/19 13:29) Upset Stomach codeine Adverse Reaction (Verified 10/04/19 13:29) Vomiting cyclobenzaprine HCl [From Flexeril] Adverse Reaction (Verified 10/04/19 13:29) Upset Stomach etodolac [Etodolac] Adverse Reaction (Verified 10/04/19 13:29) Vomiting hydrocodone bitartrate [From Vicodin] Adverse Reaction (Verified 10/04/19 13:29) Vomiting ketorolac tromethamine [From Toradol] Adverse Reaction (Verified 10/04/19 13:29) Other metformin Adverse Reaction (Verified 10/04/19 13:29) Diarrhea Also nausea metoclopramide [From Reglan] Adverse Reaction (Verified 10/04/19 13:29) Other CAME OUT OF MY SKIN morphine Adverse Reaction (Verified 10/04/19 13:29) Vomiting AND MENTAL STATUS CHANGE naproxen [From Naprosyn] Adverse Reaction (Verified 10/04/19 13:29) Upset Stomach propoxyphene napsylate [From Darvocet-N 100] Adverse Reaction (Verified 10/04/19 13:29) Vomiting Primary Care Physician: Nola Rodriguez MD [Primary Care Provider] - Past Medical History: - - Chronic back painIBS, hyperlipidemia, diabetes, migraines Surgical History: cholecystectomy Lives: With Family Smoking Status: Current every day smoker Review of Systems All systems negative except as indicated Musculoskeletal: Reports: Back pain, Extremity Pain Physical Exam Vital Signs/Narrative: Vital Signs Temp Pulse Resp BP Pulse Ox 10/04/19 13:27 97.4 F L 90 20 H 148/96 H 99 Inital Vital Signs reviewed: Yes General: Well nourished, Well developed Head: Normocephalic, Atraumatic Eyes: Perrl, EOMI ENT: Moist mucous membranes, No rhinorrhea Neck: Supple, Nontender Cardiovascular: Regular rate, Regular rhythm Respiratory: No distress, CTA bilaterally, Chest nontender Abdomen: Soft, Nontender, Nondistended, Normal bowel sounds Back: Normal Inspection, Paraspinal Tenderness - Right lumbar, - - Significant pain of the right lumbar paraspinal area even with light palpation. Negative for: CVA tenderness Extremeties: Nontender, No edema, - - Ambulates in the emergency room Skin: Normal color, No rash. Negative for: Rash Neuro: Alert, Oriented, Normal Strength, Normal Sensation, Normal DTR, Normal Gait Psychological: Normal affect Diagnostic/Tx/Re-eval - Medical Decision Making Patient is evaluated acute exacerbation of her chronic back pain. She had a ground-level fall today. She appears nontoxic in no acute distress. She has no deformity. She does not have midline spine tenderness. I do not think repeat imaging is indicated. She does not have signs or symptoms consistent with cauda equina syndrome. Patient has appointment to see pain management in 2 days. She is given a dose of Dilaudid in the ER for pain control. She has Flexeril at home to take. She will continue to use heat to her back. She has a normal neurologic exam and I do not think she requires further inpatient evaluation. Patient is counseled on signs and symptoms requiring return to the emergency room. Patient verbalizes agreement and understand this plan. Patient discharged home in stable and improved condition. ED Disposition - Plan for ED Patient: Disposition: Home or Assisted Living Diagnosis: Acute exacerbation of chronic low back pain Instructions: BACK PAIN w/ SCIATICA Referrals: Nola Rodriguez MD [Primary Care Provider] - Additional Instructions: Continue to use heat and other home treatments. Take the Flexeril that you have at home for muscle spasm. Return the emergency room with worsening symptoms. Is very important that you follow-up with the pain/back doctor on Friday.
[2019-10-04] MEDS: HYDROmorphone 0.5 MG/0.5 ML SYRINGE IM (14:39)
== END 2019-10-04 14:52 | disposition home or self-care (01) ==
PROVIDERS: Emergency Provider Emergency Medicine; Family Provider Internal Medicine; PCP Internal Medicine
DX: M54.5 Low back pain (principal); G89.29 Other chronic pain; F17.200 Nicotine dependence, unspecified, uncomplicated
CPT/HCPCS: 96372; 99282

== ENCOUNTER 2019-10-06 15:21 | Outpatient (RCR) | payer MEDICAID, SELFPAY ==
[2019-09-07 15:11] VITALS: BMI 27.4
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
--- NOTE | 2019-11-26 16:17 | HP.PTDCNRP_ITS ---
HP - Discharge Summary (1) - Patient Information RHONDA MORRISON was seen in my office for initial evaluation on 10/06/19. The following Plan of Care was established for this patient: Initial Frequency: 2-3x /Week Initial Duration: 4-6 Weeks - Anticipated Interventions Patient/Client Instruction: Educate patient on: Condition, Plan of Care, Risk Factors, Benefits of Fitness Program For the Purpose of:: To improve self management Therapeutic Exercise to Include: Strength training, Body mechanics, Postural training, Flexibilty training, Gait and locomotor training, In an aquatic setting, Active ROM, Dynamic Lumbar Stabilization For the Purpose of:: To decrease pain, To increase ROM, To improve muscle performance and motor function, To increase tolerance to a ctivity/condition/position, To improve ability of physical actions for home/community/work/leisure, To improve gait and locomotor functions This patient was last seen in our office 10/14/19. Pertinent comments regarding their Physical therapy will appear below: This patient has not returned to Physical Therapy and is appropriate to return to MD for further follow-up as needed. At this point I will be discontinuing this patient from physical therapy. I would be happy to see this patient again in the future if found appropriate by the physician. Thank you! Cora Shell, PT, Cert MDT
== END 2019-10-06 19:00 | disposition home or self-care (01) ==
LOC: PT 15:21
PROVIDERS: Family Provider Internal Medicine; PCP Internal Medicine; Referring Provider Nurse Practitioner Family; Visit Provider Nurse Practitioner Family
DX: M54.5 Low back pain (principal); M51.36 Other intervertebral disc degeneration, lumbar region; G89.29 Other chronic pain
CPT/HCPCS: 97162

== ENCOUNTER 2019-10-08 13:07 | Emergency (ER) | payer MEDICAID, SELFPAY ==
[2019-10-08 13:08] VITALS: BP 133/68; PULSE 87; RESP 18; TEMP 37.3; O2SAT 97; BMI 29.6
--- NOTE | 2019-10-08 13:52 | RAD_ITS ---
STUDY: X-RAY - PELVIS REASON FOR EXAM: Female, 54 years old. Right hip pain following a fall. TECHNIQUE: One view of the pelvis was obtained. COMPARISON: None. FINDINGS: There is a non-specific bowel gas pattern. There are multiple calcified phleboliths. Normal bilateral iliac wings, sacroiliac joints and visualized sacrum. Normal visualized bilateral superior and inferior pubic rami. Normal pubic symphysis. Normal ischial tuberosities. Normal visualized right femoral head. Normal right acetabulum. Normal right hip joint. Normal visualized left femoral head. Normal left acetabulum. Normal left hip joint. RAD/Pelvis 1 or 2 Views IMPRESSION: Normal x-ray examination of the pelvis. Electronically Signed: Clayton Grimm, at 14:35 EST , Service support ,
[2019-10-08] MEDS: proMETHazine 25 MG/ML Syringe 6.25 MG IM (14:00)
[2019-10-08] MEDS: HYDROmorphone 1 MG/ML Syringe IM (14:01)
--- NOTE | 2019-10-08 14:10 | RAD_ITS ---
STUDY: X-RAY - LUMBAR SPINE REASON FOR EXAM: Female, 54 years old. Right-sided lower back pain following a fall. TECHNIQUE: 3 view(s) of the lumbar spine were obtained. COMPARISON: Comparison is made with prior study dated July 15, 2019. FINDINGS: Normal lumbar lordosis. There is no substantial scoliosis. Stable anterolisthesis of L4 on L5. Normal vertebral bodies and endplates. Disc space narrowing at the L3-L4 and L4-L5 levels. Facet joint osteoarthritis. There is atherosclerotic calcification of the abdominal aorta without a demonstrated aneurysm. RAD/Lumbar Spine 2 or 3 Views IMPRESSION: Degenerative changes of the spine, as detailed above. Stable anterolisthesis of L4 on L5. Electronically Signed: Clayton Grimm, at 14:34 EST , Service support ,
--- NOTE | 2019-10-08 14:15 | ED.VISSUMM ---
- ER Visit Summary Date of Service: 10/08/19 Chief Complaint: Back pain History of Present Illness: The patient is a 54 F presenting with back pain after fall. Patient has a history of chronic back pain. She is scheduled to start physical therapy on Friday. She states today she was at the store and she turned quickly and started having a back spasm and fell landing on her right side of her back. She did not hit her head or lose consciousness. She has been taking Motrin at home for pain. Denies other injuries or complaints. Physical Examination: Vitals are stable. Patient is afebrile. Alert no acute distress. HEENT exam is unremarkable. Neck is nontender Lungs are clear and equal bilaterally. Heart is regular rate and rhythm. Abdomen is soft nontender nondistended. Back right paraspinal lumbar muscle tenderness, no midline tenderness, straight leg raise positive at 30 degrees on the right Extremities are unremarkable. Skin is warm and dry. No focal neurologic deficit. Normal strength and sensation Remainder of exam is unremarkable. Emergency Department Course and Treatment: Patient was given Dilaudid, Phenergan IM. Lumbar x-ray shows degenerative changes of the spine. Stable anterolisthesis of L4 on L5. Normal x-ray examination of the pelvis. On reevaluation, patient is feeling improved. She is advised to continue her NSAIDs at home. Advised to follow-up with her primary care physician and with physical therapy. Advised to return to the ED for worsening complaints. Disposition: Discharge home Impression: Status post mechanical fall, acute on chronic back pain This note was generated with [employer] dictation software. It may contain incorrect words, spelling, and punctuation that were not noted in review of the chart prior to signing ED Disposition - Plan for ED Patient: Instructions: FALL, Mechanical Prescriptions: Naproxen [Naprosyn] 500 mg PO BID PRN #20 tab Prescription Printed Referrals: Nola Rodriguez MD [Primary Care Provider] -
--- NOTE | 2019-10-08 14:50 | ED.DEP ---
ED Disposition - Plan for ED Patient: Instructions: FALL, Mechanical Prescriptions: Naproxen [Naprosyn] 500 mg PO BID PRN #20 tablet Referrals: Nola Rodriguez MD [Primary Care Provider] -
[2019-10-08 15:03] VITALS: RESP 18
== END 2019-10-08 15:04 | disposition home or self-care (01) ==
LOC: ED 13:55
PROVIDERS: Emergency Provider Emergency Medicine; Family Provider Internal Medicine; PCP Internal Medicine
DX: M54.5 Low back pain (principal); G89.29 Other chronic pain; J45.909 Unspecified asthma, uncomplicated; E11.9 Type 2 diabetes mellitus without complications; I10 Essential (primary) hypertension; Z72.0 Tobacco use; W18.30XA Fall on same level, unspecified, initial encounter; Y93.89 Activity, other specified; Y92.512 Supermarket, store or market as the place of occurrence of the external cause; Y99.8 Other external cause status
CPT/HCPCS: 72100; 72170; 96372; 99284

== ENCOUNTER 2019-10-31 10:38 | Emergency (ER) | payer MEDICAID, SELFPAY ==
[2019-10-31 10:40] VITALS: BP 163/103; PULSE 97; RESP 17; TEMP 37.1; O2SAT 98; BMI 28.8
--- NOTE | 2019-10-31 11:01 | ED.VIS.GEN ---
History of Present Illness Chief Complaint: Back Detail of Chief Complaint: Acute on chronic back pain Informant: Patient Onset: Days Context: Gradual Onset Timing: Waxes and wanes Current Severity: Moderate Maximum Severity: Moderate Narrative: Patient is a history of chronic back pain. She presents today due to increased pain over the past 3 or 4 days. She states she has a disc that is pushing on her sciatic nerve. She has pain rating down her right leg. Pain is in the same distribution as previous exacerbations. She has recently been doing water physical therapy. She states she does not like this and has stopped doing physical therapy. She is hoping to just go to a chiropractor. She states that she has multiple allergies to medications. Usually when she comes in she reports getting Phenergan and Dilaudid shots. - Past Medical History (1) Neuropathy Status: Chronic (2) IBS (irritable bowel syndrome) Status: Chronic (3) Hyperlipidemia Status: Chronic (4) High blood pressure Status: Chronic (5) Chronic headaches Status: Chronic (6) Diabetes Status: Chronic (7) Asthma Status: Chronic (8) Migraine Status: Acute (9) Anxiety disorder Status: Chronic (10) DM2 (diabetes mellitus, type 2) Status: Chronic Past Medical History - Allergies and Home Meds Allergies/Adverse Reactions: Allergies carbidopa Allergy (Verified 10/31/19 10:40) Unknown gabapentin Allergy (Verified 10/31/19 10:40) Unknown latex Allergy (Verified 10/31/19 10:40) Rash quetiapine fumarate [From Seroquel] Allergy (Verified 10/31/19 10:40) Other MENTAL CONFUSION topiramate [From Topamax] Allergy (Verified 10/31/19 10:40) Hives tramadol HCl [From Ultram] Allergy (Verified 10/31/19 10:40) Other MENTAL STATUS CHANGE amitriptyline Adverse Reaction (Verified 10/31/19 10:40) Vomiting aspirin Adverse Reaction (Verified 10/31/19 10:40) Upset Stomach codeine Adverse Reaction (Verified 10/31/19 10:40) Vomiting cyclobenzaprine HCl [From Flexeril] Adverse Reaction (Verified 10/31/19 10:40) Upset Stomach etodolac [Etodolac] Adverse Reaction (Verified 10/31/19 10:40) Vomiting hydrocodone bitartrate [From Vicodin] Adverse Reaction (Verified 10/31/19 10:40) Vomiting ketorolac tromethamine [From Toradol] Adverse Reaction (Verified 10/31/19 10:40) Other metformin Adverse Reaction (Verified 10/31/19 10:40) Diarrhea Also nausea metoclopramide [From Reglan] Adverse Reaction (Verified 10/31/19 10:40) Other CAME OUT OF MY SKIN morphine Adverse Reaction (Verified 10/31/19 10:40) Vomiting AND MENTAL STATUS CHANGE naproxen [From Naprosyn] Adverse Reaction (Verified 10/31/19 10:40) Upset Stomach propoxyphene napsylate [From Darvocet-N 100] Adverse Reaction (Verified 10/31/19 10:40) Vomiting Primary Care Physician: Nola Rodriguez MD [Primary Care Provider] - Prior records reviewed: Yes Surgical History: cholecystectomy Smoking Status: Current every day smoker Review of Systems General: Denies: Chills, Fever Eyes: Denies: Visual changes - bilaterally ENT: Denies: Bilateral ear pain Cardiovascular: Denies: Chest pain Respiratory: Denies: Dyspnea, Cough Gastrointestinal: Reports: Constipation. Denies: Abdominal pain, Nausea, Vomiting, Diarrhea Genitourinary: Denies: Dysuria Musculoskeletal: Reports: Back pain, Extremity Pain - Radiating from back to Skin: Denies: Rash Neurological: Denies: Headache, Weakness Hematologic: Denies: Easy bruising Allergy: Denies: Uticaria Physical Exam Vital Signs/Narrative: Vital Signs Temp Pulse Resp BP Pulse Ox 10/31/19 10:40 98.8 F 97 17 163/103 H 98 Inital Vital Signs reviewed: Yes General: Well nourished, Well developed Head: Normocephalic ENT: Moist mucous membranes Neck: Supple Cardiovascular: Regular rate, Regular rhythm Respiratory: No distress, CTA bilaterally Abdomen: Soft, Nontender, Normal bowel sounds Back: - - Reproducible tenderness over the sacrum. No skin changes. Extremities: Nontender Skin: Normal color, No rash Neurological: Alert, Oriented x3, Normal Strength, Normal Sensation Psychological: Normal affect Diagnostic/Tx/Re-eval - Medical Decision Making I advised the patient at this time there is no significant physical exam findings different from her baseline. I advised that I was not willing to give her IM injections of narcotics. She is unwilling to take oxycodone stating that this makes her feel like she is drunk. She is unwilling to take muscle relaxers or steroids stating that she has had these in the past they do not help. I advised her at this time I do not have anything else to offer if she is not willing to try these normal treatments. Patient left the emergency room stating that she would just go home and use her lidocaine patch and lie in bed. ED Disposition - Plan for ED Patient: Disposition: Home or Assisted Living Diagnosis: Chronic back pain Instructions: BACK PAIN (Acute or Chronic) Referrals: Nola Rodriguez MD [Primary Care Provider] - As soon as possible
[2019-10-31 11:11] VITALS: RESP 16
--- NOTE | 2019-10-31 11:12 | ED.RN ---
This rn went to discharge pt, pt not in er room or in the er dept. Pt left prior to receiving discharge instructions. Notified Dr. Marshall and registration.
== END 2019-10-31 11:13 | disposition home or self-care (01) ==
LOC: ED 11:14
PROVIDERS: Emergency Provider Emergency Medicine; Family Provider Internal Medicine; PCP Internal Medicine
DX: M54.9 Dorsalgia, unspecified (principal); G89.29 Other chronic pain; E11.40 Type 2 diabetes mellitus with diabetic neuropathy, unspecified; R03.0 Elevated blood-pressure reading, without diagnosis of hypertension; J45.909 Unspecified asthma, uncomplicated; F17.200 Nicotine dependence, unspecified, uncomplicated
CPT/HCPCS: 99283

== ENCOUNTER → 2019-11-01 15:32 | Outpatient (CLI) | payer MEDICAID, SELFPAY ==
[2019-10-31 10:40] VITALS: BMI 28.8
== END ==
PROVIDERS: Family Provider Internal Medicine; PCP Internal Medicine; Referring Provider Otolaryngology Otolaryngology/Facial Plastic Surgery; Visit Provider Otolaryngology Otolaryngology/Facial Plastic Surgery
DX: J02.9 Acute pharyngitis, unspecified (principal); J32.9 Chronic sinusitis, unspecified
CPT/HCPCS: 87070; 87077; 87186; 87205

== ENCOUNTER 2019-12-01 12:50 | Emergency (ER) | payer MEDICAID, SELFPAY ==
[2019-12-01 12:51] VITALS: BP 151/100; PULSE 96; RESP 16; TEMP 36.7; O2SAT 98; BMI 26.1
--- NOTE | 2019-12-01 13:09 | ED.DCSUM_ITS ---
History of Present Illness Chief Complaint: Back Informant: Patient Onset: Days - History of injury November 25 Context: Sudden Onset Injury: Fall Timing: Continuous Quality: Dull, Aching Location: Lumbar, Right Leg Current Severity: Mild Maximum Severity: Moderate Worsened by: improves with: Movement, Ambulation, Bending Relieved by: Nothing Associated Symptoms: - - There is no bowel bladder dysfunction. There is no saddle paresthesia or anesthesia. There is no radicular pain. There is no numbness or tingling. Narrative: Patient is a middle-age woman with history of back problems. She has an appointment see Dr. Zapata tomorrow. She states she was sitting holding a [place]ese [place] puppy by its leash. The dog got excited and pulled her. She fell onto her right side. Tetanus shot was 1 year ago. She states she has been taken Tylenol, [id number] NSAIDs and prescribed NSAIDs with no improvement. She has history of type 2 diabetes. Prior similar symptoms: Yes Recent Illness/Hospitalization: No - Past Medical History (1) Migraine Status: Acute (2) Anxiety disorder Status: Chronic (3) Asthma Status: Chronic (4) Chronic headaches Status: Chronic (5) DM2 (diabetes mellitus, type 2) Status: Chronic (6) High blood pressure Status: Chronic (7) Hx of emotional problems Status: Chronic (8) Hyperlipidemia Status: Chronic (9) IBS (irritable bowel syndrome) Status: Chronic (10) Neuropathy Status: Chronic (11) Tobacco dependence Status: Chronic Past Medical History - Allergies and Home Meds Allergies/Adverse Reactions: Allergies carbidopa Allergy (Verified 10/31/19 10:40) Unknown gabapentin Allergy (Verified 10/31/19 10:40) Unknown latex Allergy (Verified 10/31/19 10:40) Rash quetiapine fumarate [From Seroquel] Allergy (Verified 10/31/19 10:40) Other MENTAL CONFUSION topiramate [From Topamax] Allergy (Verified 10/31/19 10:40) Hives tramadol HCl [From Ultram] Allergy (Verified 10/31/19 10:40) Other MENTAL STATUS CHANGE amitriptyline Adverse Reaction (Verified 10/31/19 10:40) Vomiting aspirin Adverse Reaction (Verified 10/31/19 10:40) Upset Stomach codeine Adverse Reaction (Verified 10/31/19 10:40) Vomiting cyclobenzaprine HCl [From Flexeril] Adverse Reaction (Verified 10/31/19 10:40) Upset Stomach etodolac [Etodolac] Adverse Reaction (Verified 10/31/19 10:40) Vomiting hydrocodone bitartrate [From Vicodin] Adverse Reaction (Verified 10/31/19 10:40) Vomiting ketorolac tromethamine [From Toradol] Adverse Reaction (Verified 10/31/19 10:40) Other metformin Adverse Reaction (Verified 10/31/19 10:40) Diarrhea Also nausea metoclopramide [From Reglan] Adverse Reaction (Verified 10/31/19 10:40) Other CAME OUT OF MY SKIN morphine Adverse Reaction (Verified 10/31/19 10:40) Vomiting AND MENTAL STATUS CHANGE naproxen [From Naprosyn] Adverse Reaction (Verified 10/31/19 10:40) Upset Stomach propoxyphene napsylate [From Darvocet-N 100] Adverse Reaction (Verified 10/31/19 10:40) Vomiting Primary Care Physician: Nola Rodriguez MD [Primary Care Provider] - Prior records reviewed: Yes Surgical History: cholecystectomy Lives: Alone Smoking Status: Current every day smoker Review of Systems General: Denies: Chills, Fever, Sweats Eyes: Denies: Visual changes - bilaterally, Blurred Vision - bilaterally ENT: Denies: Bilateral ear pain Cardiovascular: Denies: Chest pain, Palpitations Respiratory: Denies: Dyspnea, Dyspnea on exertion Gastrointestinal: Denies: Abdominal pain, Nausea, Vomiting, Diarrhea, Melena, Hematochezia Musculoskeletal: Reports: Back pain, Swelling, Extremity Pain. Denies: Myalgias, Arthralgias, Neck pain Skin: Reports: Abrasions, - - Oozing lower back and distal lateral right thigh. Denies: Rash Neurological: Denies: Weakness, Parasthesia, Numbness Psych: Reports: Depression, Anxiety Hematologic: Denies: Easy bruising, Easy bleeding Physical Exam Vital Signs/Narrative: Vital Signs Temp Pulse Resp BP Pulse Ox 12/01/19 12:51 98.1 F 96 16 151/100 H 98 Inital Vital Signs reviewed: Yes General: Well nourished, Well developed Head: Normocephalic, Atraumatic Eyes: Perrl, EOMI. Negative for: Pale conjunctiva, Scleral icterus ENT: Moist mucous membranes, No rhinorrhea Neck: Supple, Nontender, No lymphadenopathy Cardiovascular: Regular rate, Regular rhythm, No murmurs Respiratory: No distress, CTA bilaterally Back: Nontender, Paraspinal Tenderness, Negative SLR - Right, Negative SLR - Left. Negative for: Normal Inspection, Surgical Scar, Spinal tenderness, CVA tenderness Extremeties: No edema, Tenderness - Areas of ecchymosis right leg. Negative for: Nontender Skin: Normal color, No rash, Trauma - Patient over the sacrum. Negative for: Cyanosis, Diaphoresis, Jaundice Neuro: Alert, Oriented, Normal Strength, Normal Sensation, Normal DTR, Normal Gait, Normal Reflexes - Ankle and patella reflex are 2+ and symmetric., Normal Cerebellar Reflexes: - - Chills intact. Gait was observed with no foot drop. Psychological: Depressed Diagnostic/Tx/Re-eval - Medical Decision Making She states she has an appointment to see her primary care physician tomorrow. She is requesting a shot. Was informed there is no indication for parenteral ministration of medication. She was informed that the peak effect is no different whether she receives a pill by mouth of equivalent dose to a medicine that is given to her intramuscularly. She is requesting Dilaudid. Was informed I will be glad to give her something by mouth. She states she always gets a shot. She was informed I would be glad to give her something by mouth. There is no indication for parenteral medication. I was informed by her nurse Fidelia at 1313 that patient does not want medication by mouth. Therefore patient be discharged home to follow-up with her primary c are physician. ED Disposition - Plan for ED Patient: Disposition: Home or Assisted Living Diagnosis: Contusion of lower back and pelvis, initial encounter, Contusion of right thigh, initial encounter Instructions: BACK AND NECK PAIN, General Referrals: Nola Rodriguez MD [Primary Care Provider] - Keep Tamiko appointment
--- NOTE | 2019-12-01 13:21 | ED.RN ---
pt requesting dilaudid and phenergen. offered PO meds and pt stated she did not feel comfortable taking those. wanted to leave prior to getting dc instructions.
== END 2019-12-01 13:22 | disposition home or self-care (01) ==
LOC: ED 13:18
PROVIDERS: Emergency Provider Emergency Medicine; Family Provider Internal Medicine; PCP Internal Medicine
DX: S30.0XXA Contusion of lower back and pelvis, initial encounter (principal); S70.11XA Contusion of right thigh, initial encounter; W19.XXXA Unspecified fall, initial encounter; Y93.9 Activity, unspecified; Y92.9 Unspecified place or not applicable; E11.40 Type 2 diabetes mellitus with diabetic neuropathy, unspecified; G43.909 Migraine, unspecified, not intractable, without status migrainosus; F41.9 Anxiety disorder, unspecified; F32.9 Major depressive disorder, single episode, unspecified; I10 Essential (primary) hypertension; E78.5 Hyperlipidemia, unspecified; K58.9 Irritable bowel syndrome, unspecified; J45.909 Unspecified asthma, uncomplicated; Z79.899 Other long term (current) drug therapy; F17.200 Nicotine dependence, unspecified, uncomplicated
CPT/HCPCS: 99282

== ENCOUNTER 2020-02-02 12:14 | Emergency (ER) | payer MEDICAID, SELFPAY ==
[2019-12-29 15:48] VITALS: BMI 26.1
[2020-02-02 12:15] VITALS: BP 121/100; PULSE 115; RESP 15; TEMP 36.8; O2SAT 98; BMI 27.1
--- NOTE | 2020-02-02 12:50 | EKG12_ITS ---
Test Reason : CP Blood Pressure : / mmHG Vent. Rate : 113 BPM Atrial Rate : 113 BPM P-R Int : 166 ms QRS Dur : 072 ms QT Int : 348 ms P-R-T Axes : 067 050 088 degrees QTc Int : 477 ms Sinus tachycardia Otherwise normal ECG Confirmed by ELIN ADLER, PETER ([id number]), editor managing director COLBY MACDONALD ([id number]) on 02/04/2020 8:07:56 AM Referred By: ELNI Confirmed By:FRANCISCO WORTHINGTON MD
--- NOTE | 2020-02-02 12:54 | RAD_ITS ---
STUDY: X-RAY CHEST REASON FOR EXAM: Female, 54 years old. CHEST PAIN TECHNIQUE: Single AP portable view of the chest. COMPARISON: Comparison is made with prior study dated December 12, 2016. FINDINGS: EKG electrodes are seen. The lungs are clear and expanded. There is no demonstrated pleural abnormality. Normal size heart. Normal mediastinum and caleb. Normal visualized pulmonary arteries. There is atherosclerotic calcification of the aortic arch with tortuosity. There are degenerative changes of the visualized thoracic spine. Normal visualized ribs, clavicles, and shoulders. There is no demonstrated abnormality of the visualized soft tissue structures of the upper abdomen. RAD/Chest 1 View (Portable) IMPRESSION: No acute abnormality is present. Electronically Signed: Clayton Grimm, at 13:28 EST , Service support ,
[2020-02-02 12:56] LABS: Absolute Lymphocyte Count 3.64 X10^3/uL (0.83-4.51); Basophil# 0.05 X10^3/uL; Basophil% 0.4 % (0-1); Eosinophil# 0.11 X10^3/uL; Eosinophils% 0.8 % (0-5); Hematocrit 52.9 % (37-47); Hemoglobin 17.8 g/dL (12.0-15.0); Lymphocyte # 3.64 X10^3/ul (4.0); Lymphocyte % 27.2 % (19-41); Mean Corp Hgb Conc 33.6 g/dL (32-36); Mean Corpuscular Hgb 30.4 pg (27.0-32.0); Mean Corpuscular Volume 90.4 fL (81-99); Monocyte# 0.56 X10^3/uL; Monocyte% 4.2 % (0-10); NRBC Flagged by Analyzer 0 % (0-5); Neutrophil # 8.97 X10^3/uL (2.7-7.7); Neutrophil % 67.1 % (47-70); Platelet Count 334 K/mm3 (150-450); RBC Distribution Width SD 43.1 fl (35.1-43.9); Red Blood Count 5.85 M/mm3 (4.2-5.4); White Blood Count 13.4 K/mm3 (4.4-11.0)
[2020-02-02 13:08] LABS: BUN 19 mg/dL (7-18); Creatinine, Serum 0.84 mg/dL (0.55-1.02); Glucose 140 mg/dL (74-106)
--- NOTE | 2020-02-02 13:08 | ED.DCSUM_ITS ---
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 Over the weekend she developed vomiting and diarrhea which she attributed to the worsening pain. She has been feeling weaker globally and today got really hot and developed a chest muscle spasm-like pain in the left side of her chest. This concerned her greatly caused her anxiety to worsen so she called EMS. Past Medical History - Allergies and Home Meds Allergies/Adverse Reactions: Allergies carbidopa Allergy (Verified 10/31/19 10:40) Unknown gabapentin Allergy (Verified 10/31/19 10:40) Unknown latex Allergy (Verified 10/31/19 10:40) Rash quetiapine fumarate [From Seroquel] Allergy (Verified 10/31/19 10:40) Other MENTAL CONFUSION topiramate [From Topamax] Allergy (Verified 10/31/19 10:40) Hives tramadol HCl [From Ultram] Allergy (Verified 10/31/19 10:40) Other MENTAL STATUS CHANGE amitriptyline Adverse Reaction (Verified 10/31/19 10:40) Vomiting aspirin Adverse Reaction (Verified 10/31/19 10:40) Upset Stomach codeine Adverse Reaction (Verified 10/31/19 10:40) Vomiting cyclobenzaprine HCl [From Flexeril] Adverse Reaction (Verified 10/31/19 10:40) Upset Stomach etodolac [Etodolac] Adverse Reaction (Verified 10/31/19 10:40) Vomiting hydrocodone bitartrate [From Vicodin] Adverse Reaction (Verified 10/31/19 10:40) Vomiting ketorolac tromethamine [From Toradol] Adverse Reaction (Verified 10/31/19 10:40) Other metformin Adverse Reaction (Verified 10/31/19 10:40) Diarrhea Also nausea metoclopramide [From Reglan] Adverse Reaction (Verified 10/31/19 10:40) Other CAME OUT OF MY SKIN morphine Adverse Reaction (Verified 10/31/19 10:40) Vomiting AND MENTAL STATUS CHANGE naproxen [From Naprosyn] Adverse Reaction (Verified 10/31/19 10:40) Upset Stomach propoxyphene napsylate [From Darvocet-N 100] Adverse Reaction (Verified 10/31/19 10:40) Vomiting Primary Care Physician: Nola Rodriguez MD [Primary Care Provider] - Surgical History: cholecystectomy Smoking Status: Current every day smoker Review of Systems General: Denies: Chills, Fever, Sweats Eyes: Denies: Visual changes - bilaterally, Diplopia ENT: Denies: Rhinorrhea, Sore throat Cardiovascular: Reports: Chest pain, Palpitations, Heart racing Respiratory: Reports: Cough. Denies: Dyspnea, Dyspnea on exertion Gastrointestinal: Reports: Nausea, Vomiting, Diarrhea. Denies: Abdominal pain, Melena, Hematochezia Genitourinary: Denies: Dysuria, Hematuria, Frequency Musculoskeletal: Denies: Extremity Pain Skin: Denies: Rash, Abscess, Abrasions, Wounds Neurological: Denies: Headache, Weakness, Parasthesia, Numbness Physical Exam Vital Signs/Narrative: Vital Signs Temp Pulse Resp BP Pulse Ox 02/02/20 12:15 98.3 F 115 H 15 121/100 H 98 Inital Vital Signs reviewed: Yes General: Well nourished, Well developed, No Acute Distress Head: Normocephalic, Atraumatic Eyes: Perrl, EOMI ENT: Moist mucous membranes, No rhinorrhea Neck: Supple, Nontender Cardiovascular: Regular rate, No murmurs, Tachycardia Respiratory: No distress, CTA bilaterally, Chest nontender Abdomen: Soft, Nontender, Nondistended, Normal bowel sounds Back: Normal Inspection Extremities: Nontender, No edema Skin: Normal color, No rash Neurological: Alert, Oriented x3, Cranial nerves II-XII grossly intact, Normal Strength, Normal Sensation Psychological: Depressed, - - Anxious Diagnostic/Tx/Re-eval - Medical Decision Making Troponin negative. White count slightly elevated at 13. D-dimer was 0.54. EKG is a sinus tachycardia rate 113. It appears grossly unchanged from prior. CTA of the chest was negative for dissection or embolism. No pneumonia or pneumothorax seen. Patient received Zofran fluids and Valium. Her heart rate is improved. At this point patient will be discharged home. I can write for some Valium for what I believe this to be muscle spasm on the left upper chest and back as well as some Zofran for vomiting. ED Disposition - Plan for ED Patient: Disposition: Home or Assisted Living Diagnosis: Chest pain, Vomiting, Chronic back pain Instructions: CHEST PAIN, NonCardiac Prescriptions: Diazepam [Valium] 5 mg PO TID PRN #15 tablet PRN Reason: Muscle Spasm Transmission Status: Received by [id number] Ondansetron [Zofran Odt] 4 mg PO Q8H PRN PRN #20 tab PRN Reason: Nausea Transmission Status: Pending to [id number] Referrals: Nola Rodriguez MD [Primary Care Provider] - As soon as possible
[2020-02-02 13:09] LABS: Anion Gap 9 (5-15); BUN/Creat Ratio 22.6 RATIO (10-20); Calcium,Total 9.6 mg/dL (8.5-10.1); Chloride 103 mmol/L (98-107); EST Glomerular Filtration Rate 75 mL/min (>60); Est Glom Filt Rate - Afr Amer 90 mL/min (>60); Potassium 3.8 mmol/L (3.5-5.1); Sodium Level 138 mmol/L (136-145)
[2020-02-02] MEDS: Ondansetron 4 MG/2 ML Vial IV (13:18)
[2020-02-02] MEDS: diazePAM 5 MG Tablet PO (13:18)
[2020-02-02] MEDS: 0.9% Normal Saline 1,000 ML 999 ML IV (13:18)
[2020-02-02 13:26] VITALS: BP 156/144; PULSE 100; RESP 19; O2SAT 94
[2020-02-02 13:31] LABS: Lipase 87 U/L (73-393)
[2020-02-02 13:34] LABS: AST(SGOT) 19 U/L (15-37); Alanine Aminotransfer ALT/SGPT 29 U/L (13-56); Albumin, Serum 4.5 g/dL (3.2-5.0); Alkaline Phosphatase 114 U/L (45-117); Bilirubin, Direct 0.11 mg/dL (0.00-0.30); Globulin 4.1 g/dL (2.2-4.2); Protein, Total 8.6 g/dL (6.4-8.2)
--- NOTE | 2020-02-02 14:06 | CT_ITS ---
STUDY: CTA CHEST REASON FOR EXAM: Female, 54 years old. CHEST PAIN RADIATION DOSAGE (If Supplied By Facility): CTDIvol = ( 6.47 ) mGy, DLP = ( 293.37 ) mGycm TECHNIQUE: The examination was performed with the intravenous administration of 100ML ISOVUE 370. Post-processing of the angiographic images was performed, with multiplanar reformation and 3D reconstruction. Individualized dose optimization techniques were used for this CT. COMPARISON: Comparison is made with prior study dated February 28, 2014. FINDINGS: Normal enhancement of the main pulmonary artery and right and left pulmonary arteries. Normal enhancement of the bilateral peripheral pulmonary arteries. There is no demonstrated pulmonary embolism. Normal thoracic aorta and visualized great vessels. There is no demonstrated aortic dissection. There are calcifications of the coronary arteries. Normal mediastinum. Normal hilar regions. Normal visualized trachea and bronchi. The lungs are well expanded. Normal pulmonary parenchyma. Normal pleura. Normal chest wall structures. Normal osseous structures. The patient is status post cholecystectomy. CT/CTA Chest W/WO Contrast IMPRESSION: No acute abnormality is seen. Electronically Signed: Clayton Grimm, at 14:59 EST , Service support ,
[2020-02-02 14:11] LABS: D-Dimer Quantitative (DVT/PE) 0.54 FEU/ug/m (0.27-0.49)
[2020-02-02 14:24] VITALS: BP 93/72; PULSE 89; RESP 17; O2SAT 94
[2020-02-02 15:02] VITALS: BP 97/68; PULSE 16; RESP 87; O2SAT 97
[2020-02-02 15:49] VITALS: BP 102/73; PULSE 86; RESP 14; O2SAT 94
== END 2020-02-02 15:56 | disposition home or self-care (01) ==
PROVIDERS: Emergency Provider Emergency Medicine; PCP Internal Medicine
DX: R07.89 Other chest pain (principal); R11.10 Vomiting, unspecified; M54.9 Dorsalgia, unspecified; G89.29 Other chronic pain; F17.200 Nicotine dependence, unspecified, uncomplicated
CPT/HCPCS: 71045; 71275; 80048; 80076; 83690; 84484; 85025; 85379; 93005; 96361; 96374; 99285; J7030; Q9967; A4216; J2405

== ENCOUNTER → 2020-02-24 15:06 | Outpatient (CLI) | payer MEDICAID, SELFPAY ==
[2020-02-24 14:43] VITALS: BMI 27.1
[2020-02-24 16:57] LABS: Absolute Lymphocyte Count 3.59 X10^3/uL (0.83-4.51); Absolute Neutrophil Count 5.2 X10^3/uL (2.0-7.7); Basophil# 0.03 X10^3/uL; Basophil% 0.3 % (0-1); Eosinophil# 0.13 X10^3/uL; Eosinophils% 1.4 % (0-5); Hematocrit 42.7 % (37-47); Hemoglobin 14.2 g/dL (12.0-15.0); Lymphocyte # 3.59 X10^3/ul (4.0); Lymphocyte % 38.2 % (19-41); Mean Corp Hgb Conc 33.3 g/dL (32-36); Mean Corpuscular Hgb 30.3 pg (27.0-32.0); Mean Corpuscular Volume 91.2 fL (81-99); Mean Platelet Vol. 9.2 fl (6.2-12.0); Monocyte# 0.46 X10^3/uL; Monocyte% 4.9 % (0-10); NRBC Flagged by Analyzer 0 % (0-5); Neutrophil # 5.16 X10^3/uL (2.7-7.7); Neutrophil % 54.9 % (47-70); Platelet Count 333 K/mm3 (150-450); RBC Distribution Width CV 13.8 % (11.6-14.6); RBC Distribution Width SD 46.1 fl (35.1-43.9); Red Blood Count 4.68 M/mm3 (4.2-5.4); White Blood Count 9.4 K/mm3 (4.4-11.0)
[2020-02-24 17:28] LABS: ALB/GLOB Ratio 1.1 RATIO (0.9-2.4); AST(SGOT) 16 U/L (15-37); Alanine Aminotransfer ALT/SGPT 27 U/L (13-56); Albumin, Serum 3.9 g/dL (3.2-5.0); Alkaline Phosphatase 98 U/L (45-117); Anion Gap 9 (5-15); BUN 12 mg/dL (7-18); BUN/Creat Ratio 18.4 RATIO (10-20); Calcium,Total 8.9 mg/dL (8.5-10.1); Chloride 105 mmol/L (98-107); Creatinine, Serum 0.65 mg/dL (0.55-1.02); EST Glomerular Filtration Rate 100 mL/min (>60); Est Glom Filt Rate - Afr Amer 121 mL/min (>60); Globulin 3.6 g/dL (2.2-4.2); Glucose 101 mg/dL (74-106); Potassium 3.8 mmol/L (3.5-5.1); Protein, Total 7.5 g/dL (6.4-8.2); Sodium Level 140 mmol/L (136-145)
== END ==
PROVIDERS: PCP Internal Medicine; Visit Provider Internal Medicine
DX: R53.81 Other malaise (principal); R53.83 Other fatigue
CPT/HCPCS: 36415; 80053; 85025

== ENCOUNTER → 2020-02-28 | Outpatient (CLI) | payer MEDICAID, SELFPAY ==
[2020-02-24 14:43] VITALS: BMI 27.1
== END | disposition home or self-care (01) ==
LOC: LABSPEC 12:19
PROVIDERS: PCP Internal Medicine; Referring Provider Internal Medicine; Visit Provider Internal Medicine
DX: R53.81 Other malaise (principal); R53.83 Other fatigue

== ENCOUNTER → 2020-02-29 | Outpatient (CLI) | payer MEDICAID, SELFPAY ==
[2020-02-24 14:43] VITALS: BMI 27.1
[2020-02-29 12:39] LABS: Bacteria 0 SEEN /hpf (None Seen); Mucous, Urine 0 SEEN /hpf (<or=2+); Red Blood Cells-Urine 0 SEEN /hpf (0-5); White Blood Cells 0 SEEN /hpf (0-5)
[2020-02-29 12:49] LABS: Color, Urine Yellow (Yellow); Glucose, Dipstick Normal (Normal); Ketone-Dipstick Negative (Negative); Leukocyte Esterase-Dipstick Negative /ul (Negative); Nitrite-Dipstick Negative (Negative); Occult Blood-Urine Negative /ul (Negative); Protein-Dipstick Negative (Negative); Urine Bilirubin Dipstick Negative (Negative); Urine Clarity Sl. Cloudy (Clear); Urine Urobilinogen Normal (Normal)
[2020-02-29 13:11] LABS: Squamous Epithelial Cells - UA 0-5 SEEN /hpf (5-10)
== END | disposition home or self-care (01) ==
LOC: LABSPEC 12:34
PROVIDERS: PCP Internal Medicine; Referring Provider Internal Medicine; Visit Provider Internal Medicine
DX: R53.81 Other malaise (principal); R53.83 Other fatigue
CPT/HCPCS: 81001

== ENCOUNTER → 2020-05-15 14:35 | Outpatient (CLI) | payer MEDICAID, SELFPAY ==
[2020-05-15 13:52] VITALS: BMI 27.1
[2020-05-15 17:26] LABS: Cholesterol 148 mg/dL (200); High Density Lipoprotein 45 mg/dL; Triglycerides 131 mg/dL; Very Low Density Lipoprotein 26 mg/dL (5-40)
--- OUTSIDE RECORDS SUMMARY | 2020-09-17 13:45 | XMS RPT_ITS | CCD ---
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 UNRECOGNIZED SECTION INFORMATION SOURCE DATE CREATED AUTHOR AUTHOR'S ORGANIZATIO N 06/28/2019 [facility] DATE CREATED AUTHOR AUTHOR'S ORGANIZATIO N 12/02/2019 [facility] ([place])
== END ==
PROVIDERS: PCP Internal Medicine; Referring Provider Internal Medicine; Visit Provider Internal Medicine
DX: E78.5 Hyperlipidemia, unspecified (principal)
CPT/HCPCS: 36415; 80061

== ENCOUNTER → 2020-05-16 | Outpatient (CLI) | payer MEDICAID, SELFPAY ==
[2020-05-15 13:52] VITALS: BMI 27.1
--- NOTE | 2020-05-16 14:42 | RAD_ITS ---
STUDY: X-RAY - RIGHT KNEE REASON FOR EXAM: Female, 54 years old. RIGHT KNEE PAIN -- NKI -- MEDIAL PAIN TECHNIQUE: 4 view(s) of the knee. COMPARISON: None. FINDINGS: Amorphous sclerotic density in the distal diaphysis of the femur consistent with old infarct. Normal visualized proximal tibia and fibula. There is early periventricular degenerative spurring at the base of the patella. There is no demonstrated destructive osseous lesion or acute fracture. There is mild degenerative narrowing of the medial femorotibial compartment. Normal lateral femorotibial compartment. Normal patellofemoral articulation. Normal proximal tibiofibular articulation. There is subtle soft tissue prominence in the suprapatellar region suggesting a very small volume joint effusion. The soft tissue structures are unremarkable. RAD/Knee 4 or More Views IMPRESSION: 1. Mild degenerative narrowing in the medial femorotibial compartment as well as very early periventricular spurring at the base of the patella. 2. Trace joint effusion suggested. 3. 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 Electronically Signed: Andrew Ortega MD at 19:30 EDT , Service support ,
--- OUTSIDE RECORDS SUMMARY | 2020-09-17 14:28 | XMS RPT_ITS | CCD ---
:1965 External Reference #:[id number] Author Organization [facility] Care Team Providers Name Role Phone Jose Rocha LPN Unavailable Unavailable Jose Rocha LPN Unavailable Unavailable Allergies Reported Allergen Reaction(s) Severity Date of Onset Location SOME PAIN MEDS Critical, Critical 06-24-2017 - [facility] ([id number]) Medications Medication Name Sig Date Prescriber Location amoxicillin / AMOXICILLIN-POT 06-24-2017 - Robert MCNEAL [facility] clavulanate CLAVULANATE 875-125 07-04-2017 ([id number]) MG TABS Take 1 tab every 12 hours AMOXICILLIN-POT CLAVULANATE [id number] Robert MCNEAL atorvastatin ATORVASTATIN CALCIUM 06-24-2017 [facility] TABS as directed ([id number]) ATORVASTATIN CALCIUM TABS [id number] Katerine Rocha LPN ATORVASTATIN CALCIUM TABS as directed 06-24-2017 [facility] ([id number]) ATORVASTATIN CALCIUM TABS [id number] Katerine Rocha LPN esomeprazole NEXIUM 24HR TBEC as directed 06-24-2017 [facility] ([id number]) ESOMEPRAZOLE MAGNESIUM TBEC [id number] Katerine Rocha LPN NEXIUM 24HR TBEC as directed 06-24-2017 [facility] ([id number]) ESOMEPRAZOLE MAGNESIUM TBEC [id number] Katerine Rocha LPN lisinopril LISINOPRIL TABS as directed 06-24-2017 [facility] ([id number]) LISINOPRIL TABS [id number] Katerine Rocha LPN LISINOPRIL TABS as directed LISINOPRIL 06-24-2017 [facility] (80531) TABS [id number] Katerine Rocha CLASS A TRUCK DRIVER omeprazole OMEPRAZOLE TBEC as directed 06-24-2017 [facility] ([id number]) OMEPRAZOLE TBEC [id number] Katerine Rocha CLASS A TRUCK DRIVER OMEPRAZOLE TBEC as directed OMEPRAZOLE 06-24-2017 [facility] (75706) TBEC [id number] Katerine Rocha 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 TRUCK DRIVER Problems Active Problems Category Problem Name Status Date Location Screening or history of Smoker Active 06-24-2017 - [facility] (36730) mental health and substance abuse Past or Other Problems Category Problem Name Status Date Location Disorders of teeth and Infection of tooth Completed 06-24-2017 [facility] jaw (70265) Results Result Name Value Range Unit Interpretation Flag Date Location xr spine lumbar ap/lat on 2019-12-02 XR SPINE LUMBAR ORIGINAL Normal 12-02-2019 [facility] AP/LAT XR SPINE LUMBAR AP/LAT [facility] [place] ([place]) ([address]) CLINICAL STATEMENT: Low back injury in May, [...] VIEWS XR HIP RIGHT W/PELVIS 4 VIEWS [facility] [place] ([place] ([id number]) CLINICAL STATEMENT: pain. COMPARISON: None FINDINGS: The [...] on 2019-05 OBSOLETE Refill (FAMPWS) Normal 06-28-[address] [facility] BRANDI MUHAMMAD ([id number]) 1965 [facility] Time Provider Department ([id number]) 06/28/19 DAMON MARTINI During your visit today, [...] applicable Please advise. Thank you. WENDI Nicholson APRN.WEB PRODUCTION ASSISTANT 06/28/2019 1:09 PM Signed Needs to schedule follow-up. Thanks, Oralia Panda HUMANITIES TEACHER.CHAD Preciado Ma 06/28/2019 3:49 PM Signed According [...] Co mments Comments: nausea GABAPENTIN 04/06/2008 Comments: [place] high LATEX 05/02/2009 2 - Rash MORPHINE 06/07/2006 1 - Mental Status Change NAPROSYN (NAPROXEN) 12/28/2010 8 - GI Upset PROAIR HFA (ALBUTEROL SULFATE) 04/15/2012 14 - Other: See Co mments Comments: works but makes her throat feel tight, doesn't simba e breathing worse SEROQUEL (QUETIAPINE FUMARATE) 11/19/2007 Comments: [place] drunk at high doses TORADOL (KETOROLAC) 07/09/2018 16 - Unknown Comments: Skin crawling ULTRAM (TRAMADOL HCL) 10/26/2007 1 - Mental Status Change VICODIN (HYDROCODONE-ACETAMINOPHE*10/26/2007 11 - Vomiting Date Reviewed: 10/30/2018 Reviewed by: Lindsay ([facility]) Wade - Fully Assessed Reason for [...] in limb [M79.609] INVALID FOR*01/26/2016 More... COMPLIC DENTAL CERAMIST ASSISTANT ORTHO DEVICE [T84.89XA] INVALID FOR* 9 ACQ [...] on 2019-03 OBSOLETE Refill (FAMPWS) Normal 04-22-[address] [facility] BRANDI MUHAMMAD ([id number]) 1965 [facility] Time Provider Department ([id number]) 04/22/19 DAMON MARTINI FAMPWS During your visit [...] Co mments Comments: nausea GABAPENTIN 04/06/2008 Comments: [place] high LATEX 05/02/2009 2 - Rash MORPHINE 06/07/2006 1 - Mental Status Change NAPROSYN (NAPROXEN) 12/28/2010 8 - GI Upset PROAIR HFA (ALBUTEROL SULFATE) 04/15/2012 14 - Other: See Co mments Comments: works but makes her throat feel tight, doesn't simba e breathing worse SEROQUEL (QUETIAPINE FUMARATE) 11/19/2007 Comments: [place] drunk at high doses TORADOL (KETOROLAC) 07/09/2018 16 - Unknown Comments: Skin crawling ULTRAM (TRAMADOL HCL) 10/26/2007 1 - Mental Status Change VICODIN (HYDROCODONE-ACETAMINOPHE*10/26/2007 11 - Vomiting Date Reviewed: 10/30/2018 Reviewed by: Lindsay ([facility]) Wade - Fully Assessed Reason for [...] in limb [M79.609] INVALID FOR*01/26/2016 More... COMPLIC DENTAL CERAMIST ASSISTANT ORTHO DEVICE [T84.89XA] INVALID FOR* 9 ACQ [...] Control led E11.9 Encounter Status:Closed by ORALIA PANDA CNP on 04/22/19 obsolete on 2019-03 OBSOLETE Refill (FAMPWS) Normal 03-08-[address] [facility] BRANDI MUHAMMAD ([id number]) 1965 [facility] Time Provider Department ([id number]) 03/08/19 [facility] your visit today, we recorded the following informati on about you: Brandi Cuadra LPN, CLASS A TRUCK DRIVER 03/08/2019 9:31 AM Signed Patient has been [...] advise. Thank you. Brandi Cuadra, WENDI Panda, HUMANITIES TEACHER.CHAD 03/08/2019 9:36 AM Signed Needs establish care appointment- hasn't been here in a year . Thanks, Oralia Podlogar, HUMANITIES TEACHER.WEB PRODUCTION ASSISTANT Allergies As of Date: 03/08/2019 Noted Allergy [...] Co mments Comments: nausea GABAPENTIN 04/06/2008 Comments: [place] high LATEX 05/02/2009 2 - Rash MORPHINE 06/07/2006 1 - Mental Status Change NAPROSYN (NAPROXEN) 12/28/2010 8 - GI Upset PROAIR HFA (ALBUTEROL SULFATE) 04/15/2012 14 - Other: See Co mments Comments: works but makes her throat feel tight, doesn't simba e breathing worse SEROQUEL (QUETIAPINE FUMARATE) 11/19/2007 Comments: [place] drunk at high doses TORADOL (KETOROLAC) 07/09/2018 16 - Unknown Comments: Skin crawling ULTRAM (TRAMADOL HCL) 10/26/2007 1 - Mental Status Change VICODIN (HYDROCODONE-ACETAMINOPHE*10/26/2007 11 - Vomiting Date Reviewed: 10/30/2018 Reviewed by: Lindsay ([facility]) Wade - Fully Assessed Reason for [...] in limb [M79.609] INVALID FOR*01/26/2016 More... COMPLIC DENTAL CERAMIST ASSISTANT ORTHO DEVICE [T84.89XA] INVALID FOR* 9 ACQ [...] 03/08/19 progress on 2018-10 PROGRESS HNO ID: [id number] Normal 10-30-2018 [facility] Author: Lindsay Natarajan) [facility] ([id number][facility] Service: (none) Author Type: Nurse Practitioner Type: [...] No response to Levsin as of 04-08 [place] rec EGD and Colon in 05-09: H [...] - Post concussive syndrome seeing neurology at [facility] - Pure hypercholesterolemia - Sprain of [...] cervical X2 - COLONOSCOP W/ OR W/O [facility] SPEC 02/08/15 Colonoscopy - COLONOSCOPY W/BX 05/08/09 - EGD W/O [facility] SPECIMEN W/BX 05/08/09 - EGD W/O [...] OVARY(S) Right 07/2018 Benign Serous cystadenoma - [facility] Dr. Swann - REMOVAL OF OVARY/TUBE(S) [...] CNOV Office Visit (UCWSTR) Normal 10-30-20 18 [place] BRANDI Sheikh ([id number]) 1965 F [facility] Date Time Provider Department ([id number]) 10/30/18 5:00 PM LINDSAY GONZALEZ (WEB PRODUCTION ASSISTANT) UCWSTR During your visit today, we recorded [...] - Post concussive syndrome seeing neurology at [facility] - Pure hypercholesterolemia - Sprain of [...] cervical X2 - COLONOSCOP W/ OR W/O [facility] SPEC 02/08/15 Colonoscopy - COLONOSCOPY W/BX 05/08/09 - EGD W/O [facility] SPECIMEN W/BX 05/08/09 - EGD W/O [...] OVARY(S) Right 07/2018 Benign Serous cystadenoma - [facility] Dr. Swann - REMOVAL OF OVARY/TUBE(S) [...] Co mments Comments: nausea GABAPENTIN 04/06/2008 Comments: [place] high LATEX 05/02/2009 2 - Rash MORPHINE 06/07/2006 1 - Mental Status Change NAPROSYN (NAPROXEN) 12/28/2010 8 - GI Upset PROAIR HFA (ALBUTEROL SULFATE) 04/15/2012 14 - Other: See Co mments Comments: works but makes her throat feel tight, doesn't simba e breathing worse SEROQUEL (QUETIAPINE FUMARATE) 11/19/2007 Comments: [place] drunk at high doses TORADOL (KETOROLAC) 07/09/2018 [...] in limb [M79.609] INVALID FOR*01/26/2016 More... 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 BIPOLAR - MOST RECENTLY MANIC W PSYCHOSIS [F31.* Abdominal pain, other specified site [R10.9] INVALID FOR* More... Anemia, unspecified [D64.9] INVALID FOR*08/15/2016 More... SLEEP APNEA NOS [G47.30] INVALID FOR*02/14/2016 More... Routine General Medical Examination at a [facility]*INVALID FOR* 06/02/2014 More... Microalbuminuria [R80.9] INVALID FOR*08/21/2015 [...] Discussed expected course of illness Lindsay Gonzalez APRN.[facility] Prescriptions ordered this encounter Disp Refills Start End NYSTATIN 100,000 UNIT/GRAM TOPICAL C* 30 g 0 10/30/2018 Route: TOPICAL Sig: Apply 1 application to affected area twice daily. NYSTATIN 100,000 UNIT/GRAM TOPICAL P* 30 g 0 10/30/201810/31 Route: TOPICAL Sig: Apply 1 application to affected area twice daily for 14 days. Encounter Status:Closed by LINDSAY GONZALEZ on 10/30/18 chadn on 2018-09-07 [facility] Telephone (FAMPWS) Normal 09-07-2018 [facility] BRADNI MUHAMMAD ([id number]) 1965 F [facility] Date Time Provider Department ([id number]) 09/07/18 CINDY DICKEY ([facility]) FAMPWS During your visit today, we recorded the following informati on about you: Moira Sarah ADAME 09/07/2018 11:27 AM Signed Patient calling has not been feeling good, having headache and blood sugars have been elevated. Talked to nurse general merchandise salesperson and 230 am this morning, she did not go to ER for evaluation. Patient nadia d her fasting blood sugar this morning was 174 and she has not eaten anything said she feels nausea candace and keeps trying to drink water to get blood sugar down. P tramaine had been under care of [facility] in [place] and does not wish to go back to them, said of deondre had her confused with what to do. She said she has been off me tformin for few years. She said her abdomen is bloated and not feeling good. Advise d her no appt available today. Needs to go to ER for evaluation. Explained to her that [facility] can not be her PCP, she does [...] Co mments Comments: nausea GABAPENTIN 04/06/2008 Comments: [place] high LATEX 05/02/2009 2 - Rash MORPHINE 06/07/2006 1 - Mental Status Change NAPROSYN (NAPROXEN) 12/28/2010 8 - GI Upset PROAIR HFA (ALBUTEROL SULFATE) 04/15/2012 14 - Other: See Co mments Comments: works but makes her throat feel tight, doesn't simba e breathing worse SEROQUEL (QUETIAPINE FUMARATE) 11/19/2007 Comments: [place] drunk at high doses TORADOL (KETOROLAC) 07/09/2018 [...] in limb [M79.609] INVALID FOR*01/26/2016 More... 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 BIPOLAR - MOST RECENTLY MANIC W PSYCHOSIS [F31.* Abdominal pain, other specified site [R10.9] INVALID FOR* More... Anemia, unspecified [D64.9] INVALID FOR*08/15/2016 More... SLEEP APNEA NOS [G47.30] INVALID FOR*02/14/2016 More... Routine General Medical Examination at a [facility]*INVALID FOR* 06/02/2014 More... Microalbuminuria [R80.9] INVALID FOR*08/21/2015 [...] 09/07/18 progress on 2018-08 PROGRESS HNO ID: [id number] Normal 08-18-2018 [facility] Author: Roma Chang) Jonnathan Kay ([id number]) Service: (none) Author Type: Physician Type: Progress [...] exam was within the past 12 months, [facility], last OV was in the [...] No response to Levsin as of 04-08 [place] rec EGD and Colon in 05-09: H [...] - Post concussive syndrome seeing neurology at [facility] - Pure hypercholesterolemia - Sprain of [...] OVARY(S) Right 07/2018 Benign Serous cystadenoma - [facility] Dr. Swann - REMOVAL OF OVARY/TUBE(S) [...] [Cyclobenz* Other: See Comments nausea - Gabapentin [place] high - Latex Rash - Morphine Mental Status Change - Naprosyn [Naproxen] GI Upset - Proair Hfa [Albuter* Other: See Comments works but makes her throat feel tight, doesn't make breathin g worse - Seroquel [Quetiapin* [place] drunk at high doses - Toradol [Ketorolac] [...] Abs Lymph 1.00 - 4.00 k/uL 2.52 Holmes% % 5.4 Abs Holmes <0.87 k/uL 0.59 Eosin% % 1.4 Abs Eosin <0.46 k/uL 0.15 Baso% % 0.4 Abs Baso <0.11 k/uL 0.04 Nucleated Reds 0 /100 WBC 0.0 Absolute nRBC <0.01 k/uL <0.01 Diff Type Auto Diff Glucose, Urine Neg mg/dL neg Bilirubin, Urine Neg neg Ketones, Urine Neg neg Specific [place], Ur 1.005 - 1.030 1.005 Hemoglobin/Blood,Ur Neg [...] 2 diabetes mellitus without complication, unspecified whether [facility] insulin use (HCC) - ICD9: 250.00, ICD10: [...] Roma De Santiago MD PROGRESS HNO ID: [id number] Normal 08-18-2018 [facility] Author: Marshall Figueroa Ma [place] ([id number]) Service: (none) Author Type: (none) Type: Progress Notes Filed: 08/18/2018 10:49 PM Note Text: 53 year old female here for INACTIVATED INFLUENZA VACCINE. 7975-2873 Season Patient is identified by name and date of : Yes ___ [] CONTRAINDICATIONS color enhanced section Age less than 6 months? No Allergy to eggs, chicken, chicken feathers, or chicken dande r? No Allergy to thimerosal (a preservative) or formaldehyde, randi tin? No History of severe reaction to any vaccine component or a pre vious dose of influenza vaccination? No History of Guillain-Pricedale Syndrome within 6 weeks after a pr [...] sheet given? Yes [facility] of immuniz ations adminstered today. Patient age: [age] year old For The 9059-0021 Flu Season 6-35 months old: Fluzone 0.25 [...] 2018-08-18 CNOV Office Visit (FAMPWS) Normal 08-18-[address] [place] [address] [facility] BRANDI MUHAMMAD ([id number]) 1965 Replaced by [facility] Date Time Provider Department ([id number]) 08/18/18 1:20 PM ROMA DE SANTIAGO) FAMPWS During your visit today, we recorded the following informati on about you: Temperature Pulse Respiration Blood pressure 98.6 degrees 96/minute 14/minute 114/84 Weight 73.9 kg Marshall Figueroa Toña 08/18/2018 10:49 PM Signed 53 year old female here for INACTIVATED INFLUENZA VACCINE. 6565-9380 Season Patient is identified by name and date of : Yes ___ [] CONTRAINDICATIONS color enhanced section Age less than 6 months? No Allergy to eggs, chicken, chicken feathers, or chicken dande r? No Allergy to thimerosal (a preservative) or formaldehyde, randi tin? No History of severe reaction to any vaccine component or a pre vious dose of influenza vaccination? No History of Guillain-Pricedale Syndrome within 6 weeks afte r a [...] sheet given? Yes See immunization activity in [facility] fo r details of immunizations adminstered today. Patient age: [age] year old For The 6167-8040 Flu Season 6-35 months old: Fluzone 0.25 [...] exam was within the past 12 months, [facility], last OV was in the winter. Last [...] in 05-09: H pylori negative in 05-09 [place] not ed sigmoid stricture by Colonoscopy in [...] - Post concussive syndrome seeing neurology at [facility] - Pure hypercholesterolemia - Sprain of [...] OVARY(S) Right 07/2018 Benign Serous cystadenoma - [facility] Dr. Swann - REMOVAL OF OVARY/TUBE(S) [...] [Cyclobenz* Other: See Comments nausea - Gabapentin [place] high - Latex Rash - Morphine Mental Status Change - Naprosyn [Naproxen] GI Upset - Proair Hfa [Albuter* Other: See Comments works but makes her throat feel tight, doesn't make breathin g worse - Seroquel [Quetiapin* [place] drunk at high doses - Toradol [Ketorolac] [...] Abs Lymph 1.00 - 4.00 k/uL 2.52 Holmes% % 5.4 Abs Holmes <0.87 k/uL 0.59 Eosin% % 1.4 Abs Eosin <0.46 k/uL 0.15 Baso% % 0.4 Abs Baso <0.11 k/uL 0.04 Nucleated Reds 0 /100 WBC 0.0 Absolute nRBC <0.01 k/uL <0.01 Diff Type Auto Diff Glucose, Urine Neg mg/dL neg Bilirubin, Urine Neg neg Ketones, Urine Neg neg Specific [place], Ur 1.005 - 1.030 1.005 Hemoglobin/Blood,Ur Neg [...] 2 diabetes mellitus without complication, unspecified whether [facility] insulin use (HCC) - ICD9: 250.00, ICD10: [...] for annual exam in one year. - [facility] SCREENING Roma De Santiago MD Referring [...] Co mments Comments: nausea GABAPENTIN 04/06/2008 Comments: [place] high LATEX 05/02/2009 2 - Rash MORPHINE 06/07/2006 1 - Mental Status Change NAPROSYN (NAPROXEN) 12/28/2010 8 - GI Upset PROAIR HFA (ALBUTEROL SULFATE) 04/15/2012 14 - Other: See Co mments Comments: works but makes her throat feel tight, doesn't simba e breathing worse SEROQUEL (QUETIAPINE FUMARATE) 11/19/2007 Comments: [place] drunk at high doses TORADOL (KETOROLAC) 07/09/2018 [...] 2 diabetes mellitus without complication, unspecified whether [facility] insulin use (HCC) [E11.9] Other Visit Diagnoses:Diabetic [...] QUADRIVALENT AGE 3 YRS PLUS + IM [41040PHN] Order #: [id number] [facility] SCREENING [7526952] Order #: [id number] FUTURE COMP METABOLIC PANEL [SQCMP] Order #: [id number] FUTURE LIPID PANEL, NONFASTING [SQLIPNF] Order #: [id number] FUTURE HGB A1C [POVKP7F] Order #: [id number] FUTURE mupirocin (BACTROBAN) 2 % ointmentApply 1 [...] in limb [M79.609] INVALID FOR*01/26/2016 More... 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 BIPOLAR - MOST RECENTLY MANIC W PSYCHOSIS [F31.* Abdominal pain, other specified site [R10.9] INVALID FOR* More... Anemia, unspecified [D64.9] INVALID FOR*08/15/2016 More... SLEEP APNEA NOS [G47.30] INVALID FOR*02/14/2016 More... Routine General Medical Examination at a [facility]*INVALID FOR* 06/02/2014 More... Microalbuminuria [R80.9] INVALID FOR*08/21/2015 [...] mouth every 6 hours as needed. FOR JNENIFER N. Patient not taking: Reported on 08/11/2018 [...] Disposition History Recorded Letter Text . [facility] AUTHORIZATION FOR THE RELEASE OF MEDICAL INFORMATION FROM OTHER HEALTHCARE FACILITIES [facility] [address] [address] Name: Brandi Muhammad Date of : [address] [place] [address] (home) Reason for Disclosure: Continuity of Care. Release Information From: Name of Provider/Facility: [facility] Street: City: State: Zip: Fax: Phone: Release Information To: Office Receiving: Roma lujan MD PLEASE FAX TO: [phone] I hereby authorize to release the health [...] pap ers verifying authority (e.g. Power of Outsole Beveler or Certificate) MUST accompany the authorization when presented. Exception: parent if signing f or patient under age 18. *Psychotherapy Notes defined as notes that document pr ivate, joint, group or family counseling sessions that are from the rest of a patient?s medical record. Encounter Status:Closed by ROMA DE SANTIAGO MD on 8 progress on 2018-08 PROGRESS HNO ID: [id number] Normal 08-11-2018 [facility] Author: Preet Barth (Fredis) Arlyn Kay ([id number]) Service: (none) Author Type: Physician Plaster Tender Type: Progress Notes Filed: 08/11/2018 11:52 AM [...] No response to Levsin as of 04-08 [place] rec EGD and Colon in 05-09: H pylor i negative in 05-09 [place] noted sigmoid stricture by Colonoscopy in 05-09: [...] cervical X2 - COLONOSCOP W/ OR W/O [facility] SPEC 02/08/15 Colonoscopy - COLONOSCOPY W/BX [...] OVARY(S) Right 07/2018 Benign Serous cystadenoma - [facility] Dr. Swann - REMOVAL OF OVARY/TUBE(S) [...] CNOV Office Visit (UCWSTR) Normal 08-11-20 18 [facility] BRANDI MUHAMMAD ([id number]) 1965 Replaced by [facility] Date Time Provider Department ([id number]) 08/11/18 11:15 AM PREET STODDARD (FREDIS) UCWSTR [...] No response to Levsin as of 04-08 [place] rec EGD and Colon in 05-09: H pylori negative in 05-09 [place] not ed sigmoid stricture by Colonoscopy in [...] OVARY(S) Right 07/2018 Benign Serous cystadenoma - [facility] Dr. Swann - REMOVAL OF OVARY/TUBE(S) [...] Co mments Comments: nausea GABAPENTIN 04/06/2008 Comments: [place] high LATEX 05/02/2009 2 - Rash MORPHINE 06/07/2006 1 - Mental Status Change NAPROSYN (NAPROXEN) 12/28/2010 8 - GI Upset PROAIR HFA (ALBUTEROL SULFATE) 04/15/2012 14 - Other: See Co mments Comments: works but makes her throat feel tight, doesn't simba e breathing worse SEROQUEL (QUETIAPINE FUMARATE) 11/19/2007 Comments: [place] drunk at high doses TORADOL (KETOROLAC) 07/09/2018 [...] in limb [M79.609] INVALID FOR*01/26/2016 More... COMPLIC DENTAL CERAMIST ASSISTANT ORTHO DEVICE [T84.89XA] INVALID FOR* 9 ACQ [...] 08/11/18 progress on 2018-08 PROGRESS HNO ID: [id number] Normal 08-05-2018 [facility] Author: Marcela Swann [place] ([id number]) Service: (none) Author Type: Physician Type: Progress [...] 2018-08-05 CNOV Office Visit (WOOB) Normal 08-05-2018 [facility] BRANDI MUHAMMAD ([id number]) 1965 F [facility] Date Time Provider Department ([id number]) 08/05/18 11:20 AM MARCELA ISRAEL During your [...] Co mments Comments: nausea GABAPENTIN 04/06/2008 Comments: [place] high LATEX 05/02/2009 2 - Rash MORPHINE 06/07/2006 1 - Mental Status Change NAPROSYN (NAPROXEN) 12/28/2010 8 - GI Upset PROAIR HFA (ALBUTEROL SULFATE) 04/15/2012 14 - Other: See Co mments Comments: works but makes her throat feel tight, doesn't simba e breathing worse SEROQUEL (QUETIAPINE FUMARATE) 11/19/2007 Comments: [place] drunk at high doses TORADOL (KETOROLAC) 07/09/2018 [...] mammogram for malignant neoplasm of breast [Z12.31] Order(s):[facility] SCREENING [[id number]] Order #: [id number] FUTURE Prescriptions as of 08/05/2018 Sig: SYMBICORT [...] in limb [M79.609] INVALID FOR*01/26/2016 More... COMPLIC DENTAL CERAMIST ASSISTANT ORTHO DEVICE [T84.89XA] INVALID FOR* 9 ACQ [...] Creatinine [Mass/Vol] 0.62 0.58-0.96 mg/dL Normal 07-20-20 [facility] ([id number]) Comment: Performed By: #### CRET1 ### # [facility] [address] [place] [id number] Creatinine [Mass/Vol] >60 Normal 07-20-20 [facility] ([id number]) Comment: Performed By: #### CRET1 ### # [facility] [address] [place], [place] [address] Result Comment: eGFR (Estima candace [...] history physical on 2018-07-17 HISTORY HNO ID: [id number] Normal 07-17-2018 [place] [facility] Author: Marcela Swann [facility] Service: (none) Radha miranda Author Type: Physician ([id number]) Type: HANDP Filed: 07/17/2018 8:24 AM Note [...] No response to Levsin as of 04-08 [place] rec EGD and Colon in 05-09: H [...] cervical X2 - COLONOSCOP W/ OR W/O [facility] SPEC 02/08/15 Colonoscopy - COLONOSCOPY W/BX 05/08/09 - EGD W/O [facility] SPECIMEN W/BX 05/08/09 - EGD W/O [...] WET PREP: Not indicated TVUS DONE AT [facility]: 5.4x5.2x4.37cm complex cyst with blood flow. [...] CA 125 12 <39 U/mL Normal 07-17-2018 [facility] ([id number]) Comment: Result Comment: [place] 125 test methodology used is the Electrochemiluminescence Imm unoassay by [employer]. The reference interval is ba sed on [...] [package insert V 1.0 Englis h]. Shital Editorially, [facility], [place] (August 2015) Performed By: #### CA125 ### # [facility] [address] [place], [place] [address] progress on 2018-07 PROGRESS HNO ID: [id number] Normal 07-16-2018 [place] Author: Marcela Brink Swann [facility] Service: (none) Radha miranda Author Type: Physician ([id number]) Type: Progress Notes Filed: 07/17/2018 8:24 AM [...] cervical X2 - COLONOSCOP W/ OR W/O [facility] SPEC 02/08/15 Colonoscopy - COLONOSCOPY W/BX 05/08/09 - EGD W/O [facility] SPECIMEN W/BX 05/08/09 - EGD W/O [...] 2018-07-16 CNOV Office Visit (WOOB) Normal 07-16-2018 [place] BRANDI Sheikh ([id number]) 1965 F [facility] Date Time Provider Department ([id number]) 07/16/18 1:20 PM MARCELA ISRAEL WOOB During [...] No response to Levsin as of 04-08 [place] rec EGD and Colon in 05-09: H pylori negative in 05-09 [place] not ed sigmoid stricture by Colonoscopy in [...] No response to Levsin as of 04-08 [place] rec EGD and Colon in 05-09: H pylori negative in 05-09 [place] not ed sigmoid stricture by Colonoscopy in [...] WET PREP: Not indicated TVUS DONE AT [facility]: 5.4x5.2x4.37cm complex cyst with blood flow. Giuliana [...] Co mments Comments: nausea GABAPENTIN 04/06/2008 Comments: [place] high LATEX 05/02/2009 2 - Rash MORPHINE 06/07/2006 1 - Mental Status Change NAPROSYN (NAPROXEN) 12/28/2010 8 - GI Upset PROAIR HFA (ALBUTEROL SULFATE) 04/15/2012 14 - Other: See Co mments Comments: works but makes her throat feel tight, doesn't simba e breathing worse SEROQUEL (QUETIAPINE FUMARATE) 11/19/2007 Comments: [place] drunk at high doses TORADOL (KETOROLAC) 07/09/2018 [...] needed.Disp: 20 tabletRfl: 0 CA 125 BLD [[id number]] Order #: [id number] FUTURE Prescriptions as of 07/16/2018 Sig: PROMETHAZINE [...] in limb [M79.609] INVALID FOR*01/26/2016 More... 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 BIPOLAR - MOST RECENTLY MANIC W PSYCHOSIS [F31.* Abdominal pain, other specified site [R10.9] INVALID FOR* More... Anemia, unspecified [D64.9] INVALID FOR*08/15/2016 More... SLEEP APNEA NOS [G47.30] INVALID FOR*02/14/2016 More... Routine General Medical Examination at a [facility]*INVALID FOR* 06/02/2014 More... Microalbuminuria [R80.9] INVALID FOR*08/21/2015 [...] 07/17/18 progress on 2018-07 PROGRESS HNO ID: [id number] Normal 07-09-2018 [facility] Author: Cindy (Catalyst Operator Chief) Davis Kay ([id number]) Service: (none) Author Type: Nurse Practitioner Type: [...] No response to Levsin as of 04-08 [place] rec EGD and Colon in 05-09: H pylor i negative in 05-09 [place] noted sigmoid stricture by Colonoscopy in 05-09: [...] by mouth twi ce daily. rizatriptan (MAXALT IMPORT SPECIALIST) 5 mg disintegrating tablet Take 1 [...] dysuria, frequency or incontinence, See HP I HHAS: Negative for abnormal vaginal bleeding, abnormal vagina [...] pylori Ab, IgG 0.4 U/mL Normal 07-09-2018 [facility] ([id number]) Comment: Result Comment: U/mL are int erpreted as follows: Negative specimens <0.9 Indeterminate specimens >=0. 9 to <1.1 Positive specimens >=1.1 Results were obtained with t [employer] IMMULITE 2000 H.pylori IgG EIA. Results obtained from other manufacturers' assay methods may not be used interchangeably. Performed By: #### Jade PETER BCDIF #### [facility] [address] [place] [id number] H. pylori IgG, Qual Negative Negative Normal 07-09-2018 [facility] ([id number]) Comment: Result Comment: H. pylori Ig G antibodies were not detected in the sample. Negative results by this betzy t do not preclude recent primary infection. Performed By: #### HPJade PHELPS BCDIF #### [facility] [address] [place] [address] cnov on 2018-07-09 CNOV Office Visit (FAMPWS) Normal 07-09-[address] [place] [address] [facility] BRANDI MUHAMMAD ([id number]) 1965 F [facility] Date Time Provider Department ([id number]) 07/09/18 11:00 AM CINDY DICKEY (CHAD) FAMPWS [...] she has had these symptoms in the [facility] and has had H. Pylori. She states that overall other than these symptoms, she is at [facility]. She is taking her prilosec as ordered [...] No response to Levsin as of 04-08 [place] rec EGD and Colon in 05-09: H [...] by mouth twi ce daily. rizatriptan (MAXALT IMPORT SPECIALIST) 5 mg disintegrating tab let Take [...] dysuria, frequency or incontinence, See HP I HHAS: Negative for abnormal vaginal bleed ing, abnormal [...] - H PYLORI IGG AB Cindy Dickey APRN.WEB PRODUCTION ASSISTANT Referring Provider: SELF [[id number]] Allergies As of [...] Co mments Comments: nausea GABAPENTIN 04/06/2008 Comments: [place] high LATEX 05/02/2009 2 - Rash MORPHINE 06/07/2006 1 - Mental Status Change NAPROSYN (NAPROXEN) 12/28/2010 8 - GI Upset PROAIR HFA (ALBUTEROL SULFATE) 04/15/2012 14 - Other: See Co mments Comments: works but makes her throat feel tight, doesn't simba e breathing worse SEROQUEL (QUETIAPINE FUMARATE) 11/19/2007 Comments: [place] drunk at high doses TORADOL (KETOROLAC) 07/09/2018 [...] Generalized abdominal pain [R10.84] Order(s):UA DIP B/O [[id number]] Order #: [id number] CBC + DIFF [SQCBCDIF] Order #: [id number] FUTURE H PYLORI IGG AB [SQHPYLRI] Order #: [id number] FUTURE Prescriptions as of 07/09/2018 Sig: ATORVASTATIN [...] in limb [M79.609] INVALID FOR*01/26/2016 More... 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 Cosign accepted by SAM VENTURA MD[[id number]] on 015 12:18 PM rizatriptan (MAXALT IMPORT SPECIALIST) 5 mg disint* 9 ta* 1 [...] Abs Baso 0.04 <0.11 k/uL Normal 07-09-2018 [facility] ([id number]) Comment: Performed By: #### Jade PETERF #### [facility] [address] [place], [place] [address] Abs Holmes 0.59 <0.87 k/uL Normal 07-09-2018 [facility] ([id number]) Comment: Performed By: #### Jade PETERDIF #### [facility] [address] [place] [address] Abs Neut 7.69 1.45-7.50 k/uL High 07-09-2018 [facility] ([id number]) Comment: Performed By: #### HPYLRI C BCDIF #### [place] [address] [place] [address] Absolute nRBC <0.01 <0.01 Normal 07-09-2018 [facility] ([id number]) Comment: Performed By: #### HPYLRI, C BCDIF #### [place] [address] [place] [address] Basophils/100 WBC (Bld) 0.4 % Normal 2017 [facility] (12129) Comment: Performed By: #### HPMIKERI C BCDIF #### [place] [address] DTYPE Auto Diff Normal 07-09-2018 [facility] ([id number]) Comment: Performed By: #### HPYLRI, C BCDIF #### [place] [address] Eosinophils (Bld) [#/Vol] 0.15 <0.46 k/uL Normal [facility] (95477) Comment: Performed By: #### HPYLRI, C BCDIF #### [place] [address] [place] [address] Eosinophils/100 WBC (Bld) 1.4 % Normal [facility] (37097) Comment: Performed By: #### HPYLRI, C BCDIF #### [place] [address] [place] [address] Erythrocyte distribution 13.4 11.5-15.0 % Normal 07-09 [facility] width (RBC) [Ratio] [place] (75593) Comment: Performed By: #### Jade PETER BCDIF #### [facility] [address] [place], [place] [address] Hematocrit (Bld) [Volume 45.3 36.0-46.0 % Normal 07-09 [facility] fraction] [place] ([id number]) Comment: Performed By: #### Jade PETER BCDIF #### [facility] [place], [place] [address] Hemoglobin (Bld) 14.4 11.5-15.5 g/dL Normal 07-09-2018 [facility] [Mass/Vol] [place] (64045) Comment: Performed By: #### ROME C BCDIF #### [place] [address] Lymphocytes (Bld) [#/Vol] 2.52 1.00-4.00 k/uL Normal [facility] (76387) Comment: Performed By: #### RMOE C BCDIF #### [address] [address] Lymphocytes/100 WBC (Bld) 22.9 % Normal [facility] (70704) Comment: Performed By: #### ROME C BCDIF #### [address] [address] MCH (RBC) [Entitic mass] 30.4 26.0-34.0 pG Normal 07-09 [facility] (43566) Comment: Performed By: #### HPLENIN C BCDIF #### [address] [address] MCHC (RBC) [Mass/Vol] 31.8 30.5-36.0 g/dL Normal 07-09-20 18 [facility] (42320) Comment: Performed By: #### HPYLRI, C BCDIF #### [facility] [address] [place] [address] MCV (RBC) [Entitic vol] 95.8 80.0-100.0 fL Normal 07-09 [facility] (31451) Comment: Performed By: #### HPYLRI, C BCDIF #### [place] [address] [place] [address] Monocytes/100 WBC (Bld) 5.4 % Normal 2017 [facility] (59489) Comment: Performed By: #### HPYLRI, C BCDIF #### [place] [address] Neutrophils/100 WBC (Bld) 69.9 % Normal [facility] (66004) Comment: Performed By: #### HPYLRI, C BCDIF #### [facility] [address] [place] [address] NRBCs 0.0 0 /100 WBC Normal 07-09-2018 [facility] (27496) Comment: Performed By: #### HPYLRI, C BCDIF #### [place] [address] Platelet mean volume 9.8 9.0-12.7 fL Normal 8 [facility] (Bld) [Entitic vol] (64377) Comment: Performed By: #### HPYLRI, C BCDIF #### [place] [address] [place] [address] Platelets (Bld) [#/Vol] 313 150-400 k/uL Normal 2017 [facility] (35936) Comment: Performed By: #### HPYLRI, C BCDIF #### [facility] [address] [place], [place] [id number] RBC (Bld) [#/Vol] 4.73 3.90-5.20 m/uL Normal 07-09-2018 [facility] (36560) Comment: Performed By: #### HPMIKERIJade BCDIF #### [facility] [address] [place], [place] [id number] WBC (Bld) [#/Vol] 10.99 3.70-11.00 k/uL Normal 07-09-2018 [facility] (66883) Comment: Performed By: #### Jade PETER BCDIF #### [facility] [address] [place], [place] [id number] office visit: uc: broken tooth on 2017-06-24 Documentation of Done Invalid 06-24-2017 [facility] Now current medications Interpretation Code 06-24-2017 Clinic (procedure) (78713) Fall risk No Invalid 06-24-2017 [facility] Now assessment Interpretation Code 7 Clinic (15187) Protein mass conc Done 06-24-2017 [facility] Now 06-24-2017 Clinic (24515) Protein mass conc yes 06-24-2017 [facility] Now 06-24-2017 Clinic (97220) Smoking cessation yes Invalid 06-24-2017 [facility] Now education Interpretation Code 06-24-2017 Clinic (procedure) (51600) Tobacco smoking Current every 06-24-2017 [facility] Now status WVIS day smoker 06-24-2017 [facility] (11291) Tobacco use CPHS Current every Invalid - [facility] Now day smoker Interpretation Code 7 Clinic (43066) Vital Signs Vital Sign Description Value / Unit Date Location The following section is limited to 5 en tries per type and includes entries from the following time range: 20170624 - 20170601 5. BMI (Body Mass Index) 25.35 kg/m2 06-24-2017 - 06-24-2017 [facility] (22546) Body Temperature 98.1 [degF] 06-24-2017 - 06-24-[address] [facility] Now [facility] (07591) BP Diastolic 74 mm[Hg] 06-24-2017 - 06-24-2017 [facility] Now [facility] (83103) BP Systolic 114 mm[Hg] 06-24-2017 - 06-24-2017 [facility] Now [facility] (66021) Height 163.83 cm 06-24-2017 - 06-24-2017 [facility] Now [facility] (04845) Pulse (Heart Rate) 100 /min 06-24-2017 - 06-24-2017 [facility] N ow Clinic (78146) Respiratory Rate 13 /min 06-24-2017 - 06-24-2017 [facility] Now [facility] (69823) Weight 68.04 kg 06-24-2017 - 06-24-2017 [facility] (10972) Plan of Treatment Plan Description Date Location Appointment Appointment 06-24-2017 - [facility] ( 52651) 06-24-2017 Patient education DENTAL%20ABSCESS, [facility] Now [facility] (50548) CIGARETTE%20SMOKING%20AND% 20YOUR%20HEALTH Summary Purpose Family History No [...] BE BASED ON THE PRIMARY CLINICAL RECORDS. [employer] [facility] provides no warranty or guarantee of the accuracy or completeness of information in this document. UNRECOGNIZED CONTENT PROVIDED BELOW FOR UNRECOGNIZED SECTION INFORMATION SOURCE DATE CREATED AUTHOR AUTHOR'S ORGANIZATIO N 06/28/2019 [facility] DATE CREATED AUTHOR AUTHOR'S ORGANIZATIO N 12/02/2019 [facility] ([place])
== END | disposition home or self-care (01) ==
LOC: RAD 14:42
PROVIDERS: PCP Internal Medicine; Referring Provider Internal Medicine; Visit Provider Internal Medicine
DX: M25.561 Pain in right knee (principal)
CPT/HCPCS: 73564

== ENCOUNTER → 2020-06-15 | Outpatient (CLI) | payer MEDICAID, SELFPAY ==
[2020-06-15 16:29] VITALS: BMI 27.1
== END | disposition home or self-care (01) ==
LOC: LABSPEC 17:51
PROVIDERS: PCP Internal Medicine; Referring Provider Internal Medicine; Visit Provider Internal Medicine
DX: Z20.828 Contact with and (suspected) exposure to other viral communicable diseases (principal)
CPT/HCPCS: 87635; G2023; U0003

== ENCOUNTER → 2020-08-01 | Outpatient (CLI) | payer MEDICAID, SELFPAY ==
[2020-07-24 10:24] VITALS: BMI 27.1
--- NOTE | 2020-08-01 13:22 | MRI_ITS ---
STUDY: MRI RIGHT KNEE REASON FOR EXAM: Right knee and leg pain for 6 months, swelling, no specific injury. TECHNIQUE: Standardized fat and water weighted pulse sequences were obtained in all 3 orthogonal planes. COMPARISON: Radiographs 05/16/2020 and 12/26/2010. FINDINGS: There is a small horizontal tear of the inferior articular surface of the posterior horn of the medial meniscus (proton-density sagittal image 31). There is mild arthrosis of the medial femorotibial compartment with mild partial-thickness chondral loss (T2 sagittal image 16) and a small subchondral cyst of the medial tibial plateau. Normal medial collateral ligamentous complex (MCL). Normal distal semimembranosus, gracilis and semitendinosus tendons. Normal lateral meniscus. Normal hyaline cartilage of the lateral femorotibial compartment. Normal lateral femoral condyle and tibial plateau. Normal proximal tibiofibular articulation. Normal lateral collateral (fibular) ligament. Normal popliteus tendon. Normal biceps femoris tendon. Normal anterior cruciate ligament (ACL). Normal posterior cruciate ligament (PCL). Normal congruent patellofemoral articulation. Normal hyaline cartilage of the patellofemoral compartment. Normal medial and lateral patellar retinaculum. Normal quadriceps tendon. Normal patellar tendon. There is a small cyst in Hoffa''s fat pad (T2 sagittal image 14) measuring 1 cm in length. There is a small joint effusion. 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 MRI/Lower Ext Joint Only (Routine) IMPRESSION: Small medial meniscal tear. Mild arthrosis of the medial femorotibial compartment. Small joint effusion. Small cyst in Hoffa''s fat pad. 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 Electronically Signed: Collin Brush MD at 14:27 EDT Tel , Service support ,
== END | disposition home or self-care (01) ==
LOC: MRI 13:22
PROVIDERS: PCP Internal Medicine; Referring Provider Orthopaedic Surgery; Visit Provider Orthopaedic Surgery
DX: S83.281A Other tear of lateral meniscus, current injury, right knee, initial encounter (principal)
CPT/HCPCS: 73721

== ENCOUNTER 2020-08-14 18:32 | Emergency (ER) | payer MEDICAID, SELFPAY ==
[2020-08-09 12:24] VITALS: BMI 27.1
[2020-08-14 18:33] VITALS: BP 149/92; PULSE 102; PULSE 94; RESP 17; TEMP 36.3; O2SAT 100; O2SAT 99; BMI 25.6
--- NOTE | 2020-08-14 18:55 | RAD_ITS ---
STUDY: X-RAY - RIGHT KNEE REASON FOR EXAM: Female, 55 years old. Fall yesterday due to knee giving out and pain today, known spurs under knee cap per patient. Upcoming surgery next Friday. TECHNIQUE: 4 view(s) of the knee. COMPARISON: None. FINDINGS: Normal visualized distal femur. Normal visualized proximal tibia and fibula. Normal proximal tibiofibular articulation. Narrowed medial femorotibial compartment. Normal lateral femorotibial compartment. Normal patellofemoral articulation. Mixed sclerotic lucent density within the distal femoral shaft possibly representing old bone infarct or enchondroma. The soft tissue structures are unremarkable. RAD/Knee 4 or More Views IMPRESSION: Mild degenerative changes. No acute fracture. Question old bone infarct versus enchondroma in the distal femoral shaft Electronically Signed: Orlando Cohw MD at 19:40 EDT , Service support ,
--- NOTE | 2020-08-14 18:55 | ED.VIS.GEN ---
History of Present Illness Chief Complaint: Lower Extremity Injury Informant: Patient Onset: - - Acute on chronic Current Severity: Severe Maximum Severity: Severe Narrative: Patient presents with worsened right knee pain. She is scheduled to have surgery 1 week from tomorrow with Dr. Coombs. She states in the last 24 hours her knee has given out on her twice and she had one fall. She now has increased pain. She is been trying to use Tylenol and muscle rubs at home without improvement. She did call her orthopedics office who recommended she come into the ER [facility] for pain control. They will see her tomorrow to help with pain control until her surgery. - Past Medical History (1) Social anxiety disorder Status: Chronic (2) Neuropathy Status: Chronic (3) IBS (irritable bowel syndrome) Status: Chronic (4) Hyperlipidemia Status: Chronic (5) High blood pressure Status: Chronic (6) Chronic headaches Status: Chronic (7) Diabetes Status: Chronic (8) Asthma Status: Chronic Past Medical History - Allergies and Home Meds Allergies/Adverse Reactions: Allergies carbidopa Allergy (Verified 08/14/20 18:33) Unknown gabapentin Allergy (Verified 08/14/20 18:33) Unknown latex Allergy (Verified 08/14/20 18:33) Rash quetiapine fumarate [From Seroquel] Allergy (Verified 08/14/20 18:33) Other MENTAL CONFUSION topiramate [From Topamax] Allergy (Verified 08/14/20 18:33) Hives tramadol HCl [From Ultram] Allergy (Verified 08/14/20 18:33) Other MENTAL STATUS CHANGE amitriptyline Adverse Reaction (Verified 08/14/20 18:33) Vomiting aspirin Adverse Reaction (Verified 08/14/20 18:33) Upset Stomach codeine Adverse Reaction (Verified 08/14/20 18:33) Vomiting cyclobenzaprine HCl [From Flexeril] Adverse Reaction (Verified 08/14/20 18:33) Upset Stomach etodolac [Etodolac] Adverse Reaction (Verified 08/14/20 18:33) Vomiting hydrocodone bitartrate [From Vicodin] Adverse Reaction (Verified 08/14/20 18:33) Vomiting ketorolac tromethamine [From Toradol] Adverse Reaction (Verified 08/14/20 18:33) Other metformin Adverse Reaction (Verified 08/14/20 18:33) Diarrhea Also nausea metoclopramide [From Reglan] Adverse Reaction (Verified 08/14/20 18:33) Other CAME OUT OF MY SKIN morphine Adverse Reaction (Verified 08/14/20 18:33) Vomiting AND MENTAL STATUS CHANGE naproxen [From Naprosyn] Adverse Reaction (Verified 08/14/20 18:33) Upset Stomach propoxyphene napsylate [From Darvocet-N 100] Adverse Reaction (Verified 08/14/20 18:33) Vomiting Primary Care Physician: Nola Rodriguez MD [Primary Care Provider] - Prior records reviewed: Yes Surgical History: cholecystectomy Lives: Alone Smoking Status: Current every day smoker Review of Systems General: Denies: Chills, Fever Eyes: Denies: Visual changes - bilaterally ENT: Denies: Bilateral ear pain Cardiovascular: Denies: Chest pain Respiratory: Denies: Dyspnea, Cough Gastrointestinal: Denies: Abdominal pain Musculoskeletal: Reports: Swelling, Extremity Pain Skin: Denies: Rash Hematologic: Denies: Easy bruising, Easy bleeding Allergy: Denies: Uticaria Physical Exam Vital Signs/Narrative: Vital Signs Temp Pulse Resp BP Pulse Ox 08/14/20 18:33 97.4 F L 94 17 149/92 H 100 Inital Vital Signs reviewed: Yes General: Well nourished, Well developed Head: Normocephalic ENT: Moist mucous membranes Neck: Supple Cardiovascular: Regular rate, Regular rhythm Respiratory: No distress, CTA bilaterally Abdomen: Soft, Nontender Extremities: - - Fuhs anterior right knee pain with minimal edema. No erythema or warmth. Decreased range of motion secondary to pain. No palpable masses. Strong distal pulses noted. Neurological: Alert, Oriented x3 Psychological: Normal affect Diagnostic/Tx/Re-eval Impressions Knee X-Ray 08/14/20 18:55 IMPRESSION: Mild degenerative changes. No acute fracture. Question old bone infarct versus enchondroma in the distal femoral shaft Electronically Signed: Orlando Chow MD at 19:40 EDT , Service support , 08/14/20 18:55 Knee 4 or More Views [RAD] Stat - Medical Decision Making Was given Dilaudid and Zofran for pain control. She is to see her orthopedic doctor tomorrow and they will help arrange pain medication for her. At this time she will be given an Lev wrap and a walker to use. ED Disposition - Plan for ED Patient: Disposition: Home or Assisted Living Diagnosis: Contusion of right knee Instructions: ED EXTREMITY CONTUSION Lower Referrals: Jimmy Gee DO [STAFF PHYSICIAN] - 1 Day
[2020-08-14] MEDS: Ondansetron ODT 4 MG Tablet PO (19:09)
[2020-08-14] MEDS: HYDROmorphone 1 MG/ML Syringe IM (19:09)
== END 2020-08-14 20:09 | disposition home or self-care (01) ==
PROVIDERS: Emergency Provider Emergency Medicine; PCP Internal Medicine
DX: S80.01XA Contusion of right knee, initial encounter (principal); J45.909 Unspecified asthma, uncomplicated; E11.9 Type 2 diabetes mellitus without complications; I10 Essential (primary) hypertension; E78.5 Hyperlipidemia, unspecified; Z79.51 Long term (current) use of inhaled steroids; Z79.899 Other long term (current) drug therapy; F17.200 Nicotine dependence, unspecified, uncomplicated; W18.30XA Fall on same level, unspecified, initial encounter; Y93.89 Activity, other specified; Y92.89 Other specified places as the place of occurrence of the external cause; Y99.8 Other external cause status
CPT/HCPCS: 73564; 96372; 99283

== ENCOUNTER 2020-08-22 05:41 | Day surgery (SDC) | payer MEDICAID, SELFPAY ==
[2020-08-09 12:24] VITALS: BMI 27.1
--- NOTE | 2020-08-09 12:47 | HP_ITS ---
Intake Intake Visit Reasons: RIGHT KNEE Chief Complaint: right knee Allergies carbidopa Allergy (Verified 05/15/20 13:45) Unknown gabapentin Allergy (Verified 05/15/20 13:45) Unknown latex Allergy (Verified 05/15/20 13:45) Rash quetiapine fumarate [From Seroquel] Allergy (Verified 05/15/20 13:45) Other topiramate [From Topamax] Allergy (Verified 05/15/20 13:45) Hives tramadol HCl [From Ultram] Allergy (Verified 05/15/20 13:45) Other amitriptyline Adverse Reaction (Verified 05/15/20 13:45) Vomiting aspirin Adverse Reaction (Verified 05/15/20 13:45) Upset Stomach codeine Adverse Reaction (Verified 05/15/20 13:45) Vomiting cyclobenzaprine HCl [From Flexeril] Adverse Reaction (Verified 05/15/20 13:45) Upset Stomach etodolac [Etodolac] Adverse Reaction (Verified 05/15/20 13:45) Vomiting hydrocodone bitartrate [From Vicodin] Adverse Reaction (Verified 05/15/20 13:45) Vomiting ketorolac tromethamine [From Toradol] Adverse Reaction (Verified 05/15/20 13:45) Other metformin Adverse Reaction (Verified 05/15/20 13:45) Diarrhea metoclopramide [From Reglan] Adverse Reaction (Verified 05/15/20 13:45) Other morphine Adverse Reaction (Verified 05/15/20 13:45) Vomiting naproxen [From Naprosyn] Adverse Reaction (Verified 05/15/20 13:45) Upset Stomach propoxyphene napsylate [From Darvocet-N 100] Adverse Reaction (Verified 05/15/20 13:45) Vomiting PFSH Social History (Updated 08/09/20 @ 12:[address] Jimmy Gee, DO) Smoking Status: Current every day smoker tobacco type: cigarettes Tobacco: How many years used: 44 Electronic Cigarette Use: not used second hand exposure: Yes quit status: considering quitting counseling given: provider counseling alcohol intake: never substance use type: does not use what type of physical activity do you participate in: walking, bicycling HPI RIGHT KNEE: Surgical H&P: Yes Details: Parts of this documentation were recorded by a scribe, this documentation accurately reflects the service provided and the decisions made by me, Dr. Jimmy Gee, DO 08/09/20 0757. RHONDA MORRISON is a 55 year old F here today for F/U on right knee after having MRI completed. Continues severe pain and instability of the right knee. States that she has swelling but it is not noted on exam today. DOes have numbness of the lateral side of her knee. now says she has pain throughout knee Ortho Exam Right Knee Skin/Wound: No erythema, No ecchymosis, No swelling Homans Sign: No Knee ROM: Yes ROM-Extension -20 to 0, No ROM-Flexion 0-140 Examination: Yes Med jt line tenderness, Yes Lat jt line tenderness, Yes Pain with flexion, Yes Pain with extention, Yes Duncan's Test, No TTP Patellar tendon, No TTP Pes Anserine Stability: NML: Anterior Drawer, NML: Posterior Drawer, NML: Valgus 0, NML: Valgus 30, NML: Varus 0, NML: Varus 30 Patella Translation: 1 Apprehension with Lateral Translation: No Patella Grind: Yes KNEE: TTP over anterior lateral knee no collateral instability, but does have severe pain Left Knee Patella Translation: 1 Supplemental Info 08/01/2020 MRI right knee small medial meniscus tearHorizontal posterior hornMild cartilage wear medial compartmentWith subchondral cyst medial tibial plateau 10/18/2019 x-ray pelvis preserved joint space of bilateral hips 10/08/2019 x-ray lumbar spine arterial sclerosis with spondylo-listhesis grade 1 L4 on [id number] degenerative disc disease and facet arthrosis 05/16/2020 x-ray right knee:Mild degenerative narrowing medial compartment mild spurring patella intramedullary infarct distal femoral diaphysis Assessment & Plan Problems 1. Primary osteoarthritis of right knee M17.11 2. Tear of medial meniscus of right knee, unspecified tear type, unspecified whether old or current tear, subsequent encounter S83.225D Plan Personally reviewed patients MRI of the knee. Patient educated that Radiologist does read a small horizontal undersurface tear of the medial meniscus however this may just be degenerative changeAnd it isProbably not the source of her lateral sided pain. I did offer and recommend a steroid injection into the knee for which she declined she feels her mechanical symptoms are severe enough and the pain is severe enough she would like an arthroscopic evaluation. Due to her failure of conservative treatment and ongoing and severe nature of her pain I did complete ply with her request for arthroscopic evaluation and partial medial meniscectomy and surgery as indicated, Patient educated that she may not have relief from her lateral sided knee pain after the scope but patient wishes to proceed. Reviewed the pre-operative plans with the patient. Risks and benefits of the procedure were fully explained, including but not limited to infection, neurovascular injury, continued pain, arthritis, stiffness, need for further surgery, re-injury, DVT, PE, general risks of anesthesia, and loss of limb or life. The patient understands all the risks and does wish to proceed with written consent. Follow up 2 weeks post op or sooner if pain, swelling, numbness or associated symptoms, or concerns develop. All questions answered. Patient in agreement of plan. Coding Level of Care Code Off vis,est,level 3 Diagnoses Primary osteoarthritis of right knee M17.11 Tear of medial meniscus of right knee, unspecified tear type, unspecified whether old or current tear, subsequent encounter S83.241D ??Encounter type: subsequent encounter ??Meniscus tear of knee type: unspecified type ??Tear current or old: unspecified 08/09/20 1248 <Electronically signed by Jimmy gardiner DO> Date _ Jimmy Gee DO
[2020-08-22 06:00] VITALS: BP 109/72; PULSE 87; RESP 16; TEMP 36.9; O2SAT 96; BMI 25.3
[2020-08-22] MEDS: Lactated Ringers 1,000 ML 100 ML IV (06:21)
[2020-08-22 06:46] LABS: Bedside Glucose 118 mg/dL (70-110)
[2020-08-22] MEDS: Cefazolin 2 GM in 0.9% Normal Saline 100 ML IV (07:10)
--- NOTE | 2020-08-22 07:13 | PCM.HP.BLA ---
History and Physical Date of Admission: 08/22/20 Intake Intake Visit Reasons: RIGHT KNEE Chief Complaint: right knee Allergies carbidopa Allergy (Verified 05/15/20 13:45) Unknown gabapentin Allergy (Verified 05/15/20 13:45) Unknown latex Allergy (Verified 05/15/20 13:45) Rash quetiapine fumarate [From Seroquel] Allergy (Verified 05/15/20 13:45) Other topiramate [From Topamax] Allergy (Verified 05/15/20 13:45) Hives tramadol HCl [From Ultram] Allergy (Verified 05/15/20 13:45) Other amitriptyline Adverse Reaction (Verified 05/15/20 13:45) Vomiting aspirin Adverse Reaction (Verified 05/15/20 13:45) Upset Stomach codeine Adverse Reaction (Verified 05/15/20 13:45) Vomiting cyclobenzaprine HCl [From Flexeril] Adverse Reaction (Verified 05/15/20 13:45) Upset Stomach etodolac [Etodolac] Adverse Reaction (Verified 05/15/20 13:45) Vomiting hydrocodone bitartrate [From Vicodin] Adverse Reaction (Verified 05/15/20 13:45) Vomiting ketorolac tromethamine [From Toradol] Adverse Reaction (Verified 05/15/20 13:45) Other metformin Adverse Reaction (Verified 05/15/20 13:45) Diarrhea metoclopramide [From Reglan] Adverse Reaction (Verified 05/15/20 13:45) Other morphine Adverse Reaction (Verified 05/15/20 13:45) Vomiting naproxen [From Naprosyn] Adverse Reaction (Verified 05/15/20 13:45) Upset Stomach propoxyphene napsylate [From Darvocet-N 100] Adverse Reaction (Verified 05/15/20 13:45) Vomiting [facility] Social History (Updated 08/09/20 @ 12:[address] Jimmy Gee, DO) Smoking Status: Current every day smoker tobacco type: cigarettes Tobacco: How many years used: 44 Electronic Cigarette Use: not used second hand exposure: Yes quit status: considering quitting counseling given: provider counseling alcohol intake: never substance use type: does not use what type of physical activity do you participate in: walking, bicycling HPI RIGHT KNEE: Surgical H&P: Yes Details: Parts of this documentation were recorded by a scribe, this documentation accurately reflects the service provided and the decisions made by me, Dr. Jimmy Gee, DO 08/09/20 0888. RHONDA MORRISON is a 55 year old F here today for F/U on right knee after having MRI completed. Continues severe pain and instability of the right knee. States that she has swelling but it is not noted on exam today. DOes have numbness of the lateral side of her knee. now says she has pain throughout knee Ortho Exam Right Knee Skin/Wound: No erythema, No ecchymosis, No swelling Homans Sign: No Knee ROM: Yes ROM-Extension -20 to 0, No ROM-Flexion 0-140 Examination: Yes Med jt line tenderness, Yes Lat jt line tenderness, Yes Pain with flexion, Yes Pain with extention, Yes Duncan's Test, No TTP Patellar tendon, No TTP Pes Anserine Stability: NML: Anterior Drawer, NML: Posterior Drawer, NML: Valgus 0, NML: Valgus 30, NML: Varus 0, NML: Varus 30 Patella Translation: 1 Apprehension with Lateral Translation: No Patella Grind: Yes KNEE: TTP over anterior lateral knee no collateral instability, but does have severe pain Left Knee Patella Translation: 1 Supplemental Info 08/01/2020 MRI right knee small medial meniscus tearHorizontal posterior hornMild cartilage wear medial compartmentWith subchondral cyst medial tibial plateau 10/18/2019 x-ray pelvis preserved joint space of bilateral hips 10/08/2019 x-ray lumbar spine arterial sclerosis with spondylo-listhesis grade 1 L4 on [id number] degenerative disc disease and facet arthrosis 05/16/2020 x-ray right knee:Mild degenerative narrowing medial compartment mild spurring patella intramedullary infarct distal femoral diaphysis Assessment & Plan Problems 1. Primary osteoarthritis of right knee M17.11 2. Tear of medial meniscus of right knee, unspecified tear type, unspecified whether old or current tear, subsequent encounter S83.856D Plan Personally reviewed patients MRI of the knee. Patient educated that Radiologist does read a small horizontal undersurface tear of the medial meniscus however this may just be degenerative changeAnd it isProbably not the source of her lateral sided pain. I did offer and recommend a steroid injection into the knee for which she declined she feels her mechanical symptoms are severe enough and the pain is severe enough she would like an arthroscopic evaluation. Due to her failure of conservative treatment and ongoing and severe nature of her pain I did complete ply with her request for arthroscopic evaluation and partial medial meniscectomy and surgery as indicated, Patient educated that she may not have relief from her lateral sided knee pain after the scope but patient wishes to proceed. Reviewed the pre-operative plans with the patient. Risks and benefits of the procedure were fully explained, including but not limited to infection, neurovascular injury, continued pain, arthritis, stiffness, need for further surgery, re-injury, DVT, PE, general risks of anesthesia, and loss of limb or life. The patient understands all the risks and does wish to proceed with written consent. Follow up 2 weeks post op or sooner if pain, swelling, numbness or associated symptoms, or concerns develop. All questions answered. Patient in agreement of plan. Coding Level of Care Code Off vis,est,level 3 Diagnoses Primary osteoarthritis of right knee M17.11 Tear of medial meniscus of right knee, unspecified tear type, unspecified whether old or current tear, subsequent encounter S83.241D ??Encounter type: subsequent encounter ??Meniscus tear of knee type: unspecified type ??Tear current or old: unspecified I have re-examined the patient. There are no clinical changes since date of exam
--- NOTE | 2020-08-22 07:14 | DCINST_ITS ---
Discharge Diet: No Restrictions Weight Bearing Status: Weight bearing as tolerated Call your doctor if you observe: Shortness of breath, Chest pain Suture Line Care: Avoid Pulling/Pushing Additional Instructions: Ice and elevate next 72 hours .keep dressing on clean and dry for 48 hours then may remove begin showering daily but do not submerge in tub or pool. After shower may apply Band-Aids . Encourage knee range of motion weightbearing as tolerated, use crutches until confident in knee then may discontinue. No strenuous activity. When not ambulating keep iced and elevated next 72 hours. Call with any questions or concerns. Allergies/Adverse Reactions: Allergies carbidopa Allergy (Verified 08/22/20 05:58) Unknown gabapentin Allergy (Verified 08/22/20 05:58) Unknown latex Allergy (Verified 08/22/20 05:58) Rash quetiapine fumarate [From Seroquel] Allergy (Verified 08/22/20 05:58) Other MENTAL CONFUSION topiramate [From Topamax] Allergy (Verified 08/22/20 05:58) Hives tramadol HCl [From Ultram] Allergy (Verified 08/22/20 05:58) Other MENTAL STATUS CHANGE amitriptyline Adverse Reaction (Verified 08/22/20 05:58) Vomiting aspirin Adverse Reaction (Verified 08/22/20 05:58) Upset Stomach codeine Adverse Reaction (Verified 08/22/20 05:58) Vomiting cyclobenzaprine HCl [From Flexeril] Adverse Reaction (Verified 08/22/20 05:58) Upset Stomach etodolac [Etodolac] Adverse Reaction (Verified 08/22/20 05:58) Vomiting hydrocodone bitartrate [From Vicodin] Adverse Reaction (Verified 08/22/20 05:58) Vomiting ketorolac tromethamine [From Toradol] Adverse Reaction (Verified 08/22/20 05:58) Other metformin Adverse Reaction (Verified 08/22/20 05:58) Diarrhea Also nausea metoclopramide [From Reglan] Adverse Reaction (Verified 08/22/20 05:58) Other CAME OUT OF MY SKIN morphine Adverse Reaction (Verified 08/22/20 05:58) Vomiting AND MENTAL STATUS CHANGE naproxen [From Naprosyn] Adverse Reaction (Verified 08/22/20 05:58) Upset Stomach propoxyphene napsylate [From Darvocet-N 100] Adverse Reaction (Verified 08/22/20 05:58) Vomiting Medications to take at Discharge ALPRAZolam [Xanax] 2 mg PO TID PRN 03/24/19 lisinopril 20 mg tablet 20 mg PO DAILY #90 tab 12/07/19 rosuvastatin 10 mg tablet 10 mg PO DAILY #90 tab 12/07/19 ondansetron 4 mg disintegrating tablet 4 mg PO Q8H PRN PRN #60 tab 02/28/20 acetaminophen 500 mg tablet 500 mg PO Q6H PRN #90 tab 05/03/20 ipratropium 0.5 mg-albuterol 3 mg (2.5 mg base)/3 mL nebulization soln 3 ml INHALATION Q8H PRN #90 ml 05/09/20 omeprazole 40 mg capsule,delayed release 40 mg PO DAILY #90 cap 06/06/20 Albuterol Sulfate [Albuterol Sulfate HFA] 2 puff INHALATION Q6H PRN 08/11/20 Fluticasone Propionate See Rx Instructions .ROUTE PRN PRN 08/11/20 L.acidoph,Paracasei, B.lactis [Probiotic] 1 ea PO DAILY 08/11/20 Primary Care Physician: Nola Rodriguez MD [Primary Care Provider] - Test Results: Test results from this visit will be discussed in further detail at your follow- up appointment, if applicable. Please Follow Up With: Jimmy Gee DO - 2 weeks
[2020-08-22] MEDS: Epinephrine (1 mg/ml) 1 MG/ML VIAL (07:37)
[2020-08-22] MEDS: Bupivacaine Mpf 0.5% 30 ML VIAL (07:41)
[2020-08-22] MEDS: MethylPREDNISolone Acetate 80 MG/ML Vial (07:42)
[2020-08-22] MEDS: Bupiv/Epi 0.5% Mpf 30 ML Vial (07:42)
--- NOTE | 2020-08-22 07:43 | OP.PCM_ITS ---
Report of Operation Date of Procedure: 08/22/20 Description of Surgical Findings:: Preop diagnosis: Right knee horizontal tear posterior horn medial meniscus DJD Postoperative diagnosis: Same plus grade 3-4 changes of the medial femoral condyle grade 4 of the trochlea Procedure: Right knee arthroscopic partial medial meniscectomy chondroplasty Anesthesia: General Estimated blood loss: 5 mL Tourniquet time: 13 minutes 300 mmHg Complications: none Indication for procedure: 55-year-old female patient who has had ongoing mechanical symptoms and MRI evidence of posterior medial meniscus tear. the patient did wish to proceed with an elective arthroscopic surgery to attempt to alleviate the symptoms. Risk benefits and alternatives of the procedure were reviewed including risk of bleeding infection nerve artery tissue damage need for further surgery continued pain and expected postoperative course. Procedure: The patient was met in the preoperative holding area. The operative extremity was identified by both patient and physician and family and marked. Patient was brought back to the operating room on a wheeled cart and transferred to the operating table in the supine position. Anesthesia was started. A well- padded tourniquet was placed on the operative extremity. A lower extremity leg moffett was secured to the operative extremity. The contralateral extremity was well-padded and the end of the bed was flexed to 90 degrees. The patient was prepped and draped in the usual sterile fashion. A timeout was called to ensure the proper patient, procedure, and extremity were being contemplated. 0.5% Marcaine with epinephrine was injected into the planned incisional areas under the skin only. An Esmarch was used to exsanguinate the extremity and the tourniquet was inflated. An 11 blade scalpel was used to make a stab incision in the anterior lateral portal. The arthroscope was inserted into the intercondylar notch and inflow and outflow tubes were attached. Arthroscopic visualization began. The medial compartment was entered. An 18-gauge spinal needle was used to establish the placement for anterior medial portal. An 11 blade scalpel was used to make a stab incision. Blunt probe was inserted followed by a meniscal probe. Upon probing of the undersurface horizontal tear was noted in the posterior horn of the medial meniscus with the use of a shaver and biting instruments partial medial meniscectomy was performed was also noted be grade 3-4 changes of the cartilage of the medial femoral condyle gentle chondroplasty was performed of the periphery the ACL was found to be intact. The lateral compartment was entered there was no meniscal pathology there was some softening of the cartilage The arthroscope was switched to the medial portal to complete the procedure. The medial and lateral gutters were inspected and were free of loose bodies. The patellofemoral joint was inspected grade 4 changes of the trochlea and grade 2 of the patella. There was good patellar tracking. The knee was thoroughly irrigated and drained. An intra-articular injection with 5 cc 0.5% Marcaine plain and 40 mg of Depo-Medrol was injected intra-articularly. The arthroscope was removed the portals were closed with 3-0 nylon arthroscopic stitches. Followed by Xeroform 4 x 4's ABDs web roll and an Lev wrap. The tourniquet was let down and the drapes were removed. All counts were correct. The patient was brought back to the PACU in stable condition.
[2020-08-22 08:00] VITALS: BP 109/72; BP 139/86; PULSE 91; RESP 16; TEMP 36.7; O2SAT 98
[2020-08-22 08:10] LABS: Bedside Glucose 125 mg/dL (70-110)
[2020-08-22 08:15] VITALS: BP 109/72; BP 114/71; PULSE 86; RESP 16; O2SAT 96
[2020-08-22 08:23] VITALS: BP 109/72; BP 127/85; PULSE 83; RESP 16; TEMP 36.8; O2SAT 98
[2020-08-22] MEDS: oxyCODONE 5 MG Tablet PO (08:40)
[2020-08-22 08:54] VITALS: BP 109/72; BP 121/72; PULSE 86; RESP 18; TEMP 36.7; O2SAT 94
== END 2020-08-22 08:57 | disposition home or self-care (01) ==
LOC: SDC 05:42 → AC 05:42
PROVIDERS: Anesthesiology; PCP Internal Medicine; Referring Provider Orthopaedic Surgery; Visit Provider Orthopaedic Surgery
PROC: (CPT 29870; principal; 2020-08-22 06:55)
DX: S83.241A Other tear of medial meniscus, current injury, right knee, initial encounter (principal); M17.11 Unilateral primary osteoarthritis, right knee; F17.210 Nicotine dependence, cigarettes, uncomplicated; I10 Essential (primary) hypertension; J45.909 Unspecified asthma, uncomplicated; G47.30 Sleep apnea, unspecified; K21.9 Gastro-esophageal reflux disease without esophagitis; E78.00 Pure hypercholesterolemia, unspecified; E11.9 Type 2 diabetes mellitus without complications; F41.9 Anxiety disorder, unspecified; F32.9 Major depressive disorder, single episode, unspecified; Z91.19 Patient's noncompliance with other medical treatment and regimen; Z79.51 Long term (current) use of inhaled steroids; Z11.59 Encounter for screening for other viral diseases; Z79.899 Other long term (current) drug therapy; X58.XXXA Exposure to other specified factors, initial encounter; Y93.89 Activity, other specified; Y92.89 Other specified places as the place of occurrence of the external cause; Y99.8 Other external cause status
CPT/HCPCS: 01400; 29881; 82962; 87635; C9803; J7120; J2405; U0003

== ENCOUNTER → 2020-10-05 | Outpatient (CLI) | payer MEDICAID, SELFPAY ==
[2020-09-08 08:08] VITALS: BMI 25.3
== END | disposition home or self-care (01) ==
LOC: LABSPEC 17:21
PROVIDERS: PCP Internal Medicine; Referring Provider Nurse Practitioner Family; Visit Provider Nurse Practitioner Family
DX: R05 Cough (principal); Z20.828 Contact with and (suspected) exposure to other viral communicable diseases
CPT/HCPCS: 87635; C9803; U0003

== ENCOUNTER 2020-10-16 12:30 | Outpatient (RCR) | payer MEDICAID, SELFPAY ==
[2020-09-08 08:08] VITALS: BMI 25.3
--- NOTE | 2020-10-02 11:37 | HP.PTEVAL_ITS ---
Patient's Visit Information RHONDA MORRISON is a 55 year old F referred to Physical Therapy by Dr. Jimmy Gee DO with a diagnosis of R knee menisectomy, chondroplasty DO 08-22-2020. Date of Evaluation: 10/02/20 Physical Therapist: MARY Sewell - Visit Plan Frequency: 2-3x /Week Duration: 6 Weeks Plan: Spoke to Dr office about pts recent fall and they said Dr will let her know after Wed if he feels that an office visit or diagnositics are needed. 2- 3X/ week for 4-6 weeks for R knee AROM, stretching, strengthening (hip and knee and ankle), gait training, stairs, with HEP and ice as needed - Subjective When pt went for her post op he said she had strained it. She still has swelling and knots in it to the point that it locks. She has a barking noise through her knee and where it bends it will pop really loud. The pain started medially and then laterally and down the nguyen and increase popping before surgery and she would fall. Since surgery she has knots and increase sharp pain and swelling throughout. She has been doing exercises at home... heel slides and putting weight on it. She complains of swelling down to her toes... she feels that her nguyen bone is shoving into her knee cap. She is using the walker cause it hurts so bad. Pt can not lay on her sides cause it feels like her knee is pulling. If she stands to brush her hair she will get sharp pains in her knee. After being up on her feet for a few hours and putting more weight on her knee every day. SHe reports that she fell on her knee once after she saw the DR and her grandson pushed her walker into her knee and had a lot of pain. She reports that since then she is in more sharp pain and swelling. She has days with the walker and days she can go without the walker. - Pain R knee pain Pain Intensity (Out of 10): 6 Pain Intensity Range: 10 - Objective Gait: walks with a rollator with decrease stance time on the R LE and walks with walker out in front of her with flexed trunk. R knee AROM: -4 degrees to 96 degrees R knee flexion. L knee AROM: -1 degree to 140 degrees knee flexion. LE MMT: R SLR... unable unless AA and complains of pain. Able to get to a full LAQ. Increase pain with Quad sets. Stairs: pt reports that she is unable to the stairs due to the pain. - Goals Goal 1:: I HEP Goal Time Frame: 4-6 Weeks Goal 2:: Increase R knee AROM 0-130 degrees knee fleixon Goal Time Frame: 4-6 Weeks Goal 3:: Be able to walk with normal gait pattern with no AD or antalgic gait Goal Time Frame: 4-6 Weeks Goal 4:: Increase R knee strength to be able to perform 3 X 10 SLR without assistance Goal Time Frame: 4-6 Weeks - Rehabilitation Potential Rehabilitation Potential: Fair - Anticipated Interventions Patient/Client Instruction: Educate patient on: Condition, Plan of Care For the Purpose of:: To decrease pain, To decrease swelling/inflammation, To increase ROM, To improve nutrient delivery to tissue, To increase oxygenation perfusion, To improve muscle performance and motor function, To improve ability to perform ADL's, To increase tolerance to activity/condition/position, To improve performance and independence with ADL's, To improve ability of physical actions for home/community/work/leisure, To improve gait and locomotor functions, To improve health of tissue, To decrease soft tissue restriction, To increase flexibility/ROM Therapeutic Exercise to Include: Strength training, Flexibilty training, Gait and locomotor training, Passive ROM, Active ROM For the Purpose of:: To decrease pain, To decrease swelling/inflammation, To increase ROM, To improve nutrient delivery to tissue, To increase oxygenation perfusion, To improve muscle performance and motor function, To improve ability to perform ADL's, To increase tolerance to activity/condition/position, To improve performance and independence with ADL's, To decrease level of supervision to perform tasks, To improve ability of physical actions for home/community/work/leisure, To improve gait and locomotor functions, To improve health of tissue, To decrease soft tissue restriction, To increase flexibility/ROM, To improve endurance, To improve balance, To improve safety with gait Functional Training to Include: Gait training For the Purpose of:: To improve gait and locomotor functions Manual Therapy Techniques to Include: Passive ROM For the Purpose of:: To increase ROM IF ES: Yes Cryotherapy (ice pack, ice massage): Yes For the Purpose of:: To decrease pain, To decrease swelling/inflammation, To increase ROM, To improve nutrient delivery to tissue Thank you for the opportunity to evaluate your patient. For Medicare and Medicare HMO plans, please review the plan of care and approve it. It will need to be FAXED BACK to us at [phone] for Medicare purposes. For Medicare only, by signing this I certify the plan of care. Please let me know if there are questions or concerns regarding this plan of care. Physician Signature: Date:
--- NOTE | 2021-01-09 09:48 | HP.PTDCNRP_ITS ---
RHONDA MORRISON was seen in my office for initial evaluation on 10/02/20. The following Plan of Care was established for this patient: Initial Frequency: 2-3x /Week Initial Duration: 6 Weeks Patient/Client Instruction: Educate patient on: Condition, Plan of Care For the Purpose of:: To decrease pain, To decrease swelling/inflammation, To increase ROM, To improve nutrient delivery to tissue, To increase oxygenation perfusion, To improve muscle performance and motor function, To improve ability to perform ADL's, To increase tolerance to activity/condition/position, To improve performance and independence with ADL's, To improve ability of physical actions for home/community/work/leisure, To improve gait and locomotor functions, To improve health of tissue, To decrease soft tissue restriction, To increase flexibility/ROM Therapeutic Exercise to Include: Strength training, Flexibilty training, Gait and locomotor training, Passive ROM, Active ROM For the Purpose of:: To decrease pain, To decrease swelling/inflammation, To i ncrease ROM, To improve nutrient delivery to tissue, To increase oxygenation perfusion, To improve muscle performance and motor function, To improve ability to perform ADL's, To increase tolerance to activity/condition/position, To improve performance and independence with ADL's, To decrease level of supervision to perform tasks, To improve ability of physical actions for home/community/work/leisure, To improve gait and locomotor functions, To improve health of tissue, To decrease soft tissue restriction, To increase flexibility/ROM, To improve endurance, To improve balance, To improve safety with gait Functional Training to Include: Gait training For the Purpose of:: To improve gait and locomotor functions Manual Therapy Techniques to Include: Passive ROM For the Purpose of:: To increase ROM IF ES: Yes Cryotherapy (ice pack, ice massage): Yes For the Purpose of:: To decrease pain, To decrease swelling/inflammation, To increase ROM, To improve nutrient delivery to tissue This patient was last seen in our office 10/16/20. Pertinent comments regarding their Physical therapy will appear below: DC PT as pt has no showed multiple times in a row. At this point I will be discontinuing this patient from physical therapy. I would be happy to see this patient again in the future if found appropriate by the physician. Thank you! Soledad Thomas, MPT
== END 2020-10-16 19:00 | disposition home or self-care (01) ==
LOC: PT 12:30
PROVIDERS: PCP Internal Medicine; Referring Provider Orthopaedic Surgery; Visit Provider Orthopaedic Surgery
DX: Z98.890 Other specified postprocedural states (principal)
CPT/HCPCS: 97110; 97161

== ENCOUNTER → 2020-11-03 | Outpatient (CLI) | payer MEDICAID, SELFPAY ==
[2020-11-03 11:42] VITALS: BMI 26.8
== END | disposition home or self-care (01) ==
PROVIDERS: PCP Internal Medicine; Referring Provider Physician Assistant; Visit Provider Physician Assistant
DX: J02.9 Acute pharyngitis, unspecified (principal); R52 Pain, unspecified
CPT/HCPCS: 87635; U0003

== ENCOUNTER → 2020-11-21 13:40 | Outpatient (CLI) | payer MEDICAID, SELFPAY ==
[2020-11-21 13:15] VITALS: BMI 25.7
[2020-11-21 15:34] LABS: Hematocrit 46.7 % (37-47); Hemoglobin 15.8 g/dL (12.0-15.0); Mean Corp Hgb Conc 33.8 g/dL (32-36); Mean Corpuscular Volume 91.6 fL (81-99); Mean Platelet Vol. 9.8 fl (6.2-12.0); Platelet Count 325 K/mm3 (150-450); RBC Distribution Width CV 12.5 % (11.6-14.6); RBC Distribution Width SD 42.5 fl (35.1-43.9); White Blood Count 10.1 K/mm3 (4.4-11.0)
[2020-11-21 15:47] LABS: Microalbumin,Random Urine 58.2 mg/L (NO RANGE EST.)
[2020-11-21 15:53] LABS: ALB/GLOB Ratio 1.2 RATIO (0.9-2.4); AST(SGOT) 14 U/L (15-37); Alanine Aminotransfer ALT/SGPT 26 U/L (13-56); Albumin, Serum 4.2 g/dL (3.2-5.0); Alkaline Phosphatase 112 U/L (45-117); Anion Gap 6 (5-15); BUN 24 mg/dL (7-18); BUN/Creat Ratio 38.3 RATIO (10-20); Calcium,Total 9.2 mg/dL (8.5-10.1); Chloride 108 mmol/L (98-107); Cholesterol 189 mg/dL (200); Creatinine, Serum 0.63 mg/dL (0.55-1.02); EST Glomerular Filtration Rate 104 mL/min (>60); Est Glom Filt Rate - Afr Amer 126 mL/min (>60); Globulin 3.6 g/dL (2.2-4.2); Glucose 152 mg/dL (74-106); High Density Lipoprotein 40 mg/dL; Potassium 3.8 mmol/L (3.5-5.1); Protein, Total 7.8 g/dL (6.4-8.2); Sodium Level 140 mmol/L (136-145); Triglycerides 145 mg/dL; Very Low Density Lipoprotein 29 mg/dL (5-40)
[2020-11-21 16:11] LABS: Hemoglobin A1c 6.5 % (3.8-5.6)
== END ==
PROVIDERS: Nurse Practitioner Family; PCP Internal Medicine; Referring Provider Internal Medicine; Visit Provider Internal Medicine
DX: I10 Essential (primary) hypertension (principal); E11.9 Type 2 diabetes mellitus without complications; E78.5 Hyperlipidemia, unspecified
CPT/HCPCS: 36415; 80053; 80061; 82043; 82570; 83036; 84443; 85027

== ENCOUNTER → 2020-12-05 | Outpatient (CLI) | payer MEDICAID, SELFPAY | END | disposition home or self-care (01) | LOC: LABSPEC 13:54 | PROVIDERS: PCP Internal Medicine; Referring Provider Internal Medicine; Visit Provider Internal Medicine | DX: R51.9 Headache, unspecified (principal); R68.83 Chills (without fever) | CPT/HCPCS: 87635; U0005; U0003 ==

== ENCOUNTER 2021-01-07 10:45 | Emergency (ER) | payer MEDICAID, SELFPAY ==
[2021-01-07 10:46] VITALS: BP 151/97; PULSE 99; RESP 16; TEMP 36.3; O2SAT 99; BMI 27.6
--- NOTE | 2021-01-07 11:06 | ED.VISSUMM ---
- ER Visit Summary Date of Service: 01/07/21 Chief Complaint: [Back pain History of Present Illness: The patient is a 55 F [presents to the emergency department with complaint of back pain and sciatica exacerbation. Patient states that she has been dealing with it at home for the last week. Patient has been taking Tylenol and anti-inflammatories. She has been using heat to the area. Patient has not had much relief. Patient states that she had an MRI of her back a few months ago that showed some herniated disks compressing her sciatic nerve. Patient saw a surgeon and initially tried physical therapy. Patient states that she tried some chiropractic help as well. She denies any new injury. She has had pain like this in the past. Patient denies weakness in the extremities. She denies any change in bowel or bladder function. Patient denies fever or recent illness. Patient also states that she had surgery on her right knee at the end of August 2020 and she thinks that may be affecting her mechanics of how she walks and causing increased stress on her back. She states the pain starts in her right lower back and radiates down her leg.] Physical Examination: [HEENT-PERRLA, EOMI. Cranial nerves II through XII grossly intact. TMs clear. Mucous membranes moist. No adenopathy. Cardiovascular-regular rate and rhythm without murmur or ectopy Lungs-clear to auscultation, chest wall stable without crepitus or subcu emphysema Abdomen-normoactive bowel sounds, soft, nontender, no rebound or rigidity, no peritoneal signs Back exam-patient has tenderness palpation over the right lumbar paraspinal musculature. Patient has positive straight leg raise about 45 degrees on the right. Deep tendon reflexes are diminished at the right knee plus 1 out of 4 and right Achilles is plus 2 out of 4. Patient has normal L5 extension bilaterally. Patient has normal sensation to light touch. Extremities-intact ?4, normal range of motion, normal pulses, atraumatic Test Results: [None indicated] Emergency Department Course and Treatment: [Patient was medicated with Dilaudid 1 mg IM as well as Toradol 30 mg IM and Zofran 4 mg p.o. Patient states she cannot typically tolerate narcotics as outpatient. Patient would like to just try to get the pain under control today and continue with her anti-inflammatories at home.] Patient initially claimed allergy to Toradol which is a odd metallic taste in her mouth but she would like to try it again today. Treatment Plan: [Patient has no signs or symptoms of cauda equina. Patient to follow-up with her primary care physician or back surgeon whom she has seen in the past if symptoms persist. Patient advised to return if weakness in extremities, change in bowel or bladder function, or condition should worsen anyway.] Disposition: [Discharged home in stable condition] Impression: [Acute exacerbation of chronic back pain/sciatica] This note was generated with [employer] dictation software. It may contain incorrect words, spelling, and punctuation that were not noted in review of the chart prior to signing ED Disposition - Plan for ED Patient: Referrals: Nola Rodriguez MD [Primary Care Provider] -
--- NOTE | 2021-01-07 11:11 | ED.DEP ---
ED Disposition - Plan for ED Patient: Instructions: ED Sciatica Referrals: Nola Rodriugez MD [Primary Care Provider] - 3-5 Days
[2021-01-07] MEDS: Ondansetron ODT 4 MG Tablet PO (11:22)
[2021-01-07] MEDS: Ketorolac 30 MG/ML Syringe IM (11:22)
[2021-01-07] MEDS: HYDROmorphone 1 MG/ML Syringe IM (11:22)
--- NOTE | 2021-01-07 11:38 | DCINST.ED_ITS ---
ED Disposition - Plan for ED Patient: Instructions: ED Sciatica Prescriptions: Ondansetron [Zofran Odt] 4 mg PO Q8H PRN PRN #10 tab PRN Reason: Nausea Transmission Status: Pending to [facility]/pharmacy #[id number] Referrals: Nola Rodriguez MD [Primary Care Provider] - 3-5 Days
--- NOTE | 2021-01-07 11:38 | ED.DEP ---
ED Disposition - Plan for ED Patient: Instructions: ED Sciatica Prescriptions: Ondansetron [Zofran Odt] 4 mg PO Q8H PRN PRN #10 tab PRN Reason: Nausea Transmission Status: Pending to [facility]/pharmacy #[id number] Referrals: Nola Rodriguez MD [Primary Care Provider] - 3-5 Days
[2021-01-07 11:52] VITALS: BP 140/92; PULSE 92; RESP 16
== END 2021-01-07 11:56 | disposition home or self-care (01) ==
LOC: ED 11:16
PROVIDERS: Emergency Provider Emergency Medicine; PCP Internal Medicine
DX: M54.41 Lumbago with sciatica, right side (principal); G89.29 Other chronic pain; J45.909 Unspecified asthma, uncomplicated; E11.9 Type 2 diabetes mellitus without complications; Z72.0 Tobacco use; Z79.51 Long term (current) use of inhaled steroids; Z79.899 Other long term (current) drug therapy
CPT/HCPCS: 96372; 99282

== ENCOUNTER → 2021-01-09 17:39 | Outpatient (CLI) | payer MEDICAID, SELFPAY ==
[2021-01-09 16:59] VITALS: BMI 27.6
--- NOTE | 2021-01-09 17:40 | CT_ITS ---
STUDY: LOW DOSE CT LUNG CANCER SCREENING REASON FOR EXAM: Female, 55 years old. LUNG CANCER SCREENING. 64 PACK YEAR HISTORY. ASTHMA/EMPHYSEMA RADIATION DOSAGE (If Supplied By Facility): CTDIvol = ( 2.01 ) mGy, DLP = ( 64.69 ) mGycm TECHNIQUE: No contrast was administered. Low dose technique was utilized (average mAS-38 and kVp 120). 1.25 mm axial source images with a slice interval of 1.25-mm were reconstructed in lung windows. 2.5 mm axial source images with a slice interval of 2.5-mm were reconstructed in lung windows. 5.0 mm axial source images with a slice interval of 5.0-mm were reconstructed in soft tissue windows. Nodule measured using lung windows on PACS and/or independent workstation with automated measurement of minimum and maximum diameter. Nodule measurement reported as average diameter rounded to the nearest whole number. Growth is defined as an increase ins size of greater than 1.5 mm. COMPARISON: Comparison is made with prior CT scan of the thorax dated 08/31/2019 and 02/02/2020. NODULES: No suspicious nodules are seen. Emphysema: Hyperinflation. Stable minimal scarring in the anterior aspect of the right middle lobe as well as the lingular segment of the left upper lobe. Endobronchial lesion: None Aorta: Atherosclerotic plaque formation of the aortic arch. Coronary arteries: Coronary artery calcification. Heart: Unremarkable Pulmonary artery: Unremarkable Mediastinal nodes: Small benign-appearing mediastinal lymph nodes. Other chest and abdominal findings: CT/Low Dose CT Lung Screening IMPRESSION: Lung-RADS category 2 - Continue annual screening with LDCT in 12 months. IMPORTANT NOTES FOR USE: ACR Lung-RADS Version 1.0 Assessment Categories Release Date: March 28, 2014 Category: Coded 0-4 bases on nodule(s) with highest degree of suspicion. Negative screen is defined as categories 1 and 2; a positive screen is defined as categories 3 and 4. Category 3 and 4A nodules that are unchanged on interval CT should be coded as category 2, and individuals returned to screening in 12 months. Category 4X: Category 3 or 4 nodules with additional imaging findings that increase the suspicion of lung cancer, such as spiculation, GGN that doubles in size in 1 year, enlarged lymph notes, etc. Category Modifiers: S (significant finding unrelated to lung cancer) and C (prior history of treated lung cancer) may be added to the 0-4 Lung-RADS Electronically Signed: Clayton Grimm MD at 8:37 EST , Service support ,
--- NOTE | 2021-01-09 17:40 | MRI_ITS ---
cervical radiculopathy, degen disc, pain, left hand and arm numbness EXAMINATION: MR Spine Cervical W/O Contrast TECHNIQUE: Multiplanar and multisequence MR images of the cervical spine were performed. IV Contrast dosage and agent: None COMPARISON: Radiographs of the cervical spine on February 11, 2019 FINDINGS: VERTEBRAE: Normal vertebral bodies and posterior elements. VERTEBRAL ALIGNMENT: Slight straightening of the upper cervical spine when compared to prior study No spondylolisthesis. CORD: Unremarkable in signal and morphology. C2/C3: Normal disc height and morphology. Normal spinal canal and neuroforamina. C3/C4: Osteophyte disc complex effacing the ventral thecal sac. No central canal stenosis. Mild bilateral neuroforaminal narrowing C4/C5: Osteophyte disc complex effacing the ventral thecal sac. Modic type II changes at the endplates.. No central canal stenosis. Moderate right and mild left neural foraminal narrowing C5/C6: Normal disc height and morphology. Normal spinal canal and neuroforamina. C6/C7: Mild annular bulge. This does efface the ventral thecal sac. No canal stenosis. No significant neural foraminal narrowing C7/T1: Normal disc height and morphology. Normal spinal canal and neuroforamina. NECK SOFT TISSUES: No prevertebral soft tissue swelling. There is no cervical adenopathy. MRI/Spine Cervical (Routine) IMPRESSION: Multilevel spondylosis with osteophyte disc complex at C3-4, C4-5. No central canal stenosis. There is moderate right and mild left neuroforaminal narrowing at C4-5 and mild bilateral neuroforaminal narrowing at C3-4. Modic type II changes are seen at the endplate at C4-5. at [id number] Reported and signed by: Veda Choi DO Electronically Signed: Veda Choi DO at 6:53 EST Tel , Service support ,
== END ==
PROVIDERS: PCP Internal Medicine; Referring Provider Nurse Practitioner Family; Visit Provider Nurse Practitioner Family
DX: M50.10 Cervical disc disorder with radiculopathy, unspecified cervical region (principal); F17.200 Nicotine dependence, unspecified, uncomplicated; Z12.2 Encounter for screening for malignant neoplasm of respiratory organs
CPT/HCPCS: 71271; 72141

== ENCOUNTER 2021-04-09 13:10 | Emergency (ER) | payer MEDICAID, SELFPAY ==
[2021-04-04 14:18] VITALS: BMI 27.6
[2021-04-09 13:11] VITALS: BP 126/91; PULSE 77; RESP 16; TEMP 36.7; O2SAT 98; BMI 27.6
--- NOTE | 2021-04-09 13:15 | RAD_ITS ---
STUDY: X-RAY - PELVIS AND RIGHT HIP REASON FOR EXAM: Female, 55 years old. Fall, pain TECHNIQUE: 3 views of the pelvis and hip. COMPARISON: None. FINDINGS: There is a non-specific bowel gas pattern. Normal visualized soft tissue structures. Normal bilateral iliac wings, sacroiliac joints and visualized sacrum. Normal bilateral superior and inferior pubic rami. Normal pubic symphysis. Normal bilateral ischial tuberosities. Normal visualized femoral head. Normal acetabulum. Normal hip joint. RAD/HIP, UNI W/ Pelvis 2-3 Views IMPRESSION: Normal x-ray examination of the pelvis and hip. Electronically Signed: Andrew Munoz MD at 13:48 EDT , Service support ,
--- NOTE | 2021-04-09 13:21 | EDS_ITS ---
HPI History of Present Illness Chief Complaint: Fall Narrative Narrative: Patient presents after a fall at home. She states that she was getting out of bed when she tried to stand her chronic sciatica was causing a lot of pain so she fell onto her right hip. She was unable to ambulate after the fall so EMS was called. She is complaining of pain in the right lumbar region and right hip. It is worse with any type of movement. She has a history of chronic neuropathy and sciatic issues for which she was getting a nerve conduction study tomorrow. She denies any numbness of the right leg. She denies any head trauma or LOC. She is having no neck or upper back pain. [facility] Medical History Asthma Carpal tunnel syndrome Chronic headaches Diabetes High blood pressure Hx of emotional problems Hyperlipidemia IBS (irritable bowel syndrome) Neuropathy Post concussion syndrome Seasonal allergies Vision problems Home Medications alprazolam 2 mg PO TID PRN 03/24/19 [History Last Taken 08/22/20 04:30 2 MG] omeprazole 40 mg capsule,delayed release 40 mg PO DAILY #90 cap 06/06/20 [Rx Last Taken 08/22/20 04:30 40 MG] nebulizers #1 ea 09/06/20 [Rx Last Taken Unknown] salt irrigation solution no.1 2 spray INTRANASAL QDAY PRN #177 ml 11/01/20 [Rx Last Taken Unknown] L.acidoph, paracasei,B. lactis 10 billion cell capsule 1 cell PO DAILY #90 cap 11/09/20 [Rx Last Taken Unknown] blood sugar diagnostic #100 ea 11/14/20 [Rx Last Taken Unknown] blood-glucose meter #1 ea 11/14/20 [Rx Last Taken Unknown] lancets 28 gauge #200 ea 11/14/20 [Rx Last Taken Unknown] lisinopril 20 mg tablet 20 mg PO DAILY #90 tab 11/16/20 [Rx Last Taken Unknown] rosuvastatin 10 mg tablet 10 mg PO DAILY #90 tab 11/16/20 [Rx Last Taken Unknown] ibuprofen 200 mg tablet 200 mg PO Q6H PRN 11/21/20 [History Last Taken Unknown] albuterol sulfate 90 mcg/actuation aerosol inhaler 2 puff INHALATION Q6H PRN #8.5 g 12/05/20 [Rx Last Taken Unknown] budesonide-formoterol HFA 160 mcg-4.5 mcg/actuation aerosol inhaler 2 puff INHALATION BID #10.2 g 03/01/21 [Rx Last Taken Unknown] ipratropium 0.5 mg-albuterol 3 mg (2.5 mg base)/3 mL nebulization soln 3 ml INHALATION Q8H PRN #90 ml 03/01/21 [Rx Last Taken Unknown] ipratropium 20 mcg-albuterol 100 mcg/actuation mist for inhalation 1 puff INHALATION Q6H 03/05/21 [History Last Taken Unknown] baclofen 5 mg tablet 5 mg PO QHS PRN #30 tab 03/15/21 [Rx Last Taken Unknown] albuterol sulfate 90 mcg/actuation aerosol inhaler 2 puff INHALATION Q6H PRN #8.5 g 03/16/21 [Rx Last Taken Unknown] blood sugar diagnostic #50 each 03/16/21 [Rx Last Taken Unknown] blood-glucose meter #1 each 03/16/21 [Rx Last Taken Unknown] lancets #50 each 03/16/21 [Rx Last Taken Unknown] fluticasone propionate 50 mcg/actuation nasal spray,suspension See Rx Instructions .ROUTE PRN PRN #15.8 ml 03/26/21 [Rx Last Taken Unknown] ondansetron 4 mg disintegrating tablet 4 mg PO Q8H PRN PRN #30 tab 03/31/21 [Rx Last Taken Unknown] Allergy/AdvReac Type Severity Reaction Status Date / Time red dye Allergy Severe swelling Verified 04/09/21 13:11 carbidopa Allergy Unknown Verified 04/09/21 13:11 gabapentin Allergy Unknown Verified 04/09/21 13:11 latex Allergy Rash Verified 04/09/21 13:11 quetiapine fumarate Allergy Other Verified 04/09/21 13:11 [From Seroquel] topiramate [From Topamax] Allergy Hives Verified 04/09/21 13:11 tramadol HCl [From Ultram] Allergy Other Verified 04/09/21 13:11 amitriptyline AdvReac Vomiting Verified 04/09/21 13:11 aspirin AdvReac Upset Verified 04/09/21 13:11 Stomach codeine AdvReac Vomiting Verified 04/09/21 13:11 cyclobenzaprine HCl AdvReac Upset Verified 04/09/21 13:11 [From Flexeril] Stomach etodolac [Etodolac] AdvReac Vomiting Verified 04/09/21 13:11 hydrocodone bitartrate AdvReac Vomiting Verified 04/09/21 13:11 [From Vicodin] ketorolac tromethamine AdvReac Other Verified 04/09/21 13:11 [From Toradol] metformin AdvReac Diarrhea Verified 04/09/21 13:11 metoclopramide [From Reglan] AdvReac Other Verified 04/09/21 13:11 morphine AdvReac Vomiting Verified 04/09/21 13:11 naproxen [From Naprosyn] AdvReac Upset Verified 04/09/21 13:11 Stomach propoxyphene napsylate AdvReac Vomiting Verified 04/09/21 13:11 [From Darvocet-N 100] Family History Mother Malignant hyperthermia due to anesthesia Angina pectoris Arthritis Bowel disease Myocardial infarction Heart disease Hypertension High cholesterol CVA (cerebral vascular accident) Father Asthma Arthritis Myocardial infarction Heart disease High cholesterol Hypertension CVA (cerebral vascular accident) Leukemia Diabetes Grandmother Lung cancer Grandfather Diabetes Grandmother Diabetes Surgical History History of History of cholecystectomy History of orthopedic surgery History of partial hysterectomy History of total hysterectomy S/P knee surgery Social History Smoking Status: Current some day smoker tobacco type: cigarettes Tobacco: How many years used: 44 Electronic Cigarette Use: not used second hand exposure: Yes quit status: considering quitting counseling given: provider counseling alcohol intake: never substance use type: does not use what type of physical activity do you participate in: walking and bicycling ROS ROS ED Constitutional Constitutional ED: Denies chills or fever(s) Eyes Eyes: Denies blurry vision, change in vision or diplopia ENT ENT ED: Denies ear pain, rhinorrhea or sore throat Cardiovascular Cardiovascular: Denies chest pain or palpitations Respiratory/Chest Respiratory/Chest: Denies cough, dyspnea or sputum Gastrointestinal Gastrointestinal: Denies abdominal pain, diarrhea, nausea or vomiting Genitourinary Genitourinary ED: Denies dysuria, hematuria or urinary frequency Musculoskeletal Musculoskeletal: Reports back pain and other Details: Right hip pain Integumentary Denies change in pigmentation or rash Neurologic Neurologic: Denies headache(s), numbness or weakness Psychiatric Psychiatric: Denies anxiety or depression Endocrine Endocrinology: Denies polydipsia or polyuria EXAM Physical Exam Const Vital Signs: 04/09/21 13:11 04/09/21 13:52 Temperature 98.1 F Temperature Source Oral Pulse Rate 77 Respiratory Rate 16 Respiratory Effort Normal Non-Labored Respiratory Depth Normal Respiratory Pattern Normal Blood Pressure 126/91 H Blood Pressure Mean 102 Pulse Ox 98 Oxygen Delivery Method Room Air Room Air Positive well nourished and well developed General Appearance ED: well developed HEENT atraumatic; Negative for tenderness Eyes PERRL and EOMs intact bilaterally Neck full ROM Chest Wall inspection of chest normal and palpation of chest normal Resp normal respiratory effort and clear to auscultation bilaterally Cardio regular rhythm and no murmurs Rate: regular rate GI normal to inspection, nondistended, normoactive bowel sounds and non-tender Palpation: soft Back/Spine Back/Spine Narrative: Tenderness in the right lumbar paraspinal region down into the right buttock. General Back: other Extremity Extremity Narrative: Right hip has limited range of motion secondary to pain. She has pain over the greater trochanteric area. She is keeping her right leg flexed due to pain. She is lying on her left hand side in the decubitus position. Neuro oriented x3 and no focal motor deficits Sensorium / Orientation: alert Psych mental status grossly normal Skin no rashes or lesions noted MDM MDM MDM Narrative Medical decision making narrative: The patient was given Dilaudid for pain control. She did receive Zofran with EMS. X-rays of the hip and pelvis revealed nothing acute. Lumbar spine x-rays show degenerative changes. Patient states her pain was slightly improved. I did give her a dose of Toradol because she states that did help the last time she was here. She has a listed allergy but it only caused the vomiting. Patient is requesting to go home after the Toradol. This will be arranged. She does have home medications. She will follow-up with her PCP Radiography Diagnostic Testing: Radiology Impression Hip/Pelvis X-Ray 04/09/21 13:15 IMPRESSION: Normal x-ray examination of the pelvis and hip. Electronically Signed: Andrew Munoz MD at 13:48 EDT , Service support , Lumbar Spine X-Ray 04/09/21 13:25 IMPRESSION: Degenerative changes of the spine, as detailed above. Electronically Signed: Andrew Munoz MD at 13:49 EDT , Service support , Discharge Plan Triage Chief Complaint: Fall ED Provider: Orlando Coleman Dx/Rx/DC Orders Clinical Impression: Acute exacerbation of chronic low back pain Instructions: ED Back Care Tips Prescriptions: No Action Rakanacidoph, zekeB. lactis 10 billion cell capsule 1 cell PO DAILY Qty: 90 RF: 3 ibuprofen [Advil] 200 mg tablet 200 mg PO Q6H PRN (Reason: Pain 1-10 Or Fever) RF: 0 Combivent Respimat 20-100 mcg/actuation mist 1 puff INHALATION Q6H RF: 0 alprazolam 2 MG tablet 2 mg PO TID PRN (Reason: Anxiety) RF: 0 omeprazole 40 mg capsule,delayed release(DR/EC) 40 mg PO DAILY Qty: 90 RF: 3 (DME) Altera Nebulizer System Misc See Rx Instructions .ROUTE .MEDSUPPLY Qty: 1 RF: 3 [place] Complete Aerosol 2 spray INTRANASAL QDAY PRN (Reason: nasal congestion) Qty: 177 RF: 1 (DME) blood-glucose meter [FreeStyle Lite Meter] Kit See Rx Instructions .MEDSUPPLY Qty: 1 RF: 0 (DME) lancets [FreeStyle Lancets] 28 gauge misc See Rx Instructions .MEDSUPPLY Qty: 200 RF: 3 (DME) FreeStyle Lite Strips Strip See Rx Instructions .MEDSUPPLY Qty: 100 RF: 3 lisinopril 20 mg tablet 20 mg PO DAILY Qty: 90 RF: 3 rosuvastatin [Crestor] 10 mg tablet 10 mg PO DAILY Qty: 90 RF: 3 albuterol sulfate 90 mcg/actuation HFA aerosol inhaler 2 puff INHALATION Q6H PRN (Reason: Sob &/Or Wheezing) Qty: 8.5 RF: 3 budesonide-formoterol [Symbicort] 160-4.5 mcg/actuation HFA aerosol inhaler 2 puff INHALATION BID Qty: 10.2 RF: 3 ipratropium-albuterol 0.5 mg-3 mg(2.5 mg base)/3 mL solution for nebulization 3 ml INHALATION Q8H PRN (Reason: shortness of breath or wheezing) Qty: 90 RF: 3 baclofen 5 mg tablet 5 mg PO QHS PRN (Reason: muscle spasm) Qty: 30 RF: 0 (DME) blood-glucose meter [PAX Streamlineuch Ultra2 Meter] Kit See Rx Instructions .ROUTE .MEDSUPPLY Qty: 1 RF: 0 (DME) blood sugar diagnostic Strip See Rx Instructions .ROUTE .MEDSUPPLY Qty: 50 RF: 3 (DME) lancets [OneTouch UltraSoft Lancets] Misc See Rx Instructions .ROUTE .MEDSUPPLY Qty: 50 RF: 11 albuterol sulfate [Ventolin HFA] 90 mcg/actuation HFA aerosol inhaler 2 puff INHALATION Q6H PRN (Reason: shortness of breath or wheezing) Qty: 8.5 RF: 1 fluticasone propionate 50 mcg/actuation spray,suspension See Rx Instructions .Route PRN PRN (Reason: Nasal Congestion) Qty: 15.8 RF: 3 ondansetron 4 mg tablet,disintegrating 4 mg PO Q8H PRN PRN (Reason: Nausea) Qty: 30 RF: 1 Primary Care Provider: Nola Rodriguez Referrals: Nola Rodriguez MD [Primary Care Provider] - Disposition Disposition: Home, self care
--- NOTE | 2021-04-09 13:25 | RAD_ITS ---
STUDY: X-RAY - LUMBAR SPINE REASON FOR EXAM: Female, 55 years old. Pain after fall TECHNIQUE: 3 view(s) of the lumbar spine were obtained. COMPARISON: None FINDINGS: Normal lumbar lordosis. There is no substantial scoliosis. There is a normal alignment of the vertebrae. There is multilevel endplate spondylosis of the lumbar vertebrae. There is multi-level degenerative disc disease with multi-level disc space narrowing. There is no demonstrated fracture. There is atherosclerotic calcification of the abdominal aorta without a demonstrated aneurysm. RAD/Lumbar Spine 2 or 3 Views IMPRESSION: Degenerative changes of the spine, as detailed above. Electronically Signed: Andrew Munoz MD at 13:49 EDT , Service support ,
[2021-04-09] MEDS: HYDROmorphone 1 MG/ML Syringe IV (13:41)
[2021-04-09] MEDS: Ketorolac 30 MG/ML Syringe IV (14:24)
[2021-04-09 14:37] VITALS: BP 123/85; PULSE 76; RESP 19; O2SAT 97
--- NOTE | 2021-04-09 14:37 | ED.RN ---
SHOT TIME OBSERVED BY THIS RN FOR GREATER THAN 15 MIN, NO REACTION NOTED, PT D/C
== END 2021-04-09 14:38 | disposition home or self-care (01) ==
PROVIDERS: Emergency Provider Emergency Medicine; PCP Internal Medicine
DX: M54.5 Low back pain (principal); G89.29 Other chronic pain; J45.909 Unspecified asthma, uncomplicated; E11.9 Type 2 diabetes mellitus without complications; E78.5 Hyperlipidemia, unspecified; I10 Essential (primary) hypertension; F17.210 Nicotine dependence, cigarettes, uncomplicated; Z79.51 Long term (current) use of inhaled steroids; Z79.899 Other long term (current) drug therapy
CPT/HCPCS: 72100; 73502; 96374; 96375; 99285; A4216

== ENCOUNTER → 2021-07-16 | Outpatient (CLI) | payer MEDICAID, SELFPAY ==
[2021-07-16 14:43] VITALS: BMI 25.7
[2021-07-16 17:42] LABS: Probe Check PASS; Specimen Processing Control PASS
== END | disposition home or self-care (01) ==
LOC: LABSPEC 15:27
PROVIDERS: PCP Internal Medicine; Referring Provider Physician Assistant; Visit Provider Physician Assistant
DX: R05 Cough (principal)
CPT/HCPCS: 87635; U0005; U0003

== ENCOUNTER → 2021-08-20 | Outpatient (CLI) | payer MEDICAID, SELFPAY | END | disposition home or self-care (01) | LOC: LABSPEC 08:19 | PROVIDERS: Nurse Practitioner Family; PCP Internal Medicine; Referring Provider Physician Assistant Surgical; Visit Provider Physician Assistant Surgical | DX: R09.81 Nasal congestion (principal) | CPT/HCPCS: 87633; 87635; U0005; U0003 ==

== ENCOUNTER → 2021-08-21 | Outpatient (CLI) | payer MEDICAID, SELFPAY | END | disposition home or self-care (01) | LOC: LABSPEC 08:59 | PROVIDERS: PCP Internal Medicine; Referring Provider Nurse Practitioner Family; Visit Provider Nurse Practitioner Family | DX: R69 Illness, unspecified (principal) ==

== ENCOUNTER 2021-08-30 10:59 | Emergency (ER) | payer MEDICAID, SELFPAY ==
[2021-08-30 11:00] VITALS: BP 149/114; PULSE 127; RESP 16; TEMP 36.7; O2SAT 97; BMI 23.8
--- NOTE | 2021-08-30 11:32 | RAD_ITS ---
STUDY: X-RAY - RIGHT KNEE REASON FOR EXAM: Female, 56 years old. fall TECHNIQUE: 4 view(s) of the knee. COMPARISON: 10/13/2020 FINDINGS: Chondroid lesion of the distal femur are stable since 10/20/2020. Normal visualized proximal tibia and fibula. Normal proximal tibiofibular articulation. Normal medial femorotibial compartment. Normal lateral femorotibial compartment. Normal patellofemoral articulation. There is no demonstrated joint effusion. The soft tissue structures are unremarkable. RAD/Knee 4 or More Views IMPRESSION: No demonstrated fracture or malalignment. Electronically Signed: Stanley Vee MD ([place]) at 12:03 EDT , Service support ,
--- NOTE | 2021-08-30 11:33 | ED.VIS.LOWEX ---
HPI History of Present Illness Chief Complaint: Lower Extremity Injury Detail of Chief Complaint: Injury to bilateral knees Informant: patient Narrative Narrative: Patient presents to the emergency department after sustaining a fall this morning around 7:30 AM. Patient states that she was taking her dog to the vet when the dog caused her to fall and he dragged her across the parking lot. Patient's dog weighs about 120 lbs. Patient denies striking her head or loss of consciousness. She has been ambulatory since but complaining of pain in both knees. Also she has mild discomfort in her left elbow. Patient states that she is scheduled to have surgery on the right knee and she has had prior scopes on the right knee. [facility] Medical History Asthma Carpal tunnel syndrome Chronic headaches Diabetes High blood pressure HTN (hypertension) Hx of emotional problems Hyperlipidemia IBS (irritable bowel syndrome) Left otitis externa Neuropathy Post concussion syndrome Seasonal allergies Type 2 diabetes mellitus URI (upper respiratory infection) Vision problems Home Medications alprazolam 2 mg PO TID PRN 03/24/19 [History Last Taken 08/22/20 04:30 2 MG] nebulizers #1 ea 09/06/20 [Rx Last Taken Unknown] L.acidoph, paracasei,B. lactis 10 billion cell capsule 1 cell PO DAILY #90 cap 11/09/20 [Rx Last Taken Unknown] blood sugar diagnostic #100 ea 11/14/20 [Rx Last Taken Unknown] blood-glucose meter #1 ea 11/14/20 [Rx Last Taken Unknown] lancets 28 gauge #200 ea 11/14/20 [Rx Last Taken Unknown] blood sugar diagnostic #50 each 03/16/21 [Rx Last Taken Unknown] blood-glucose meter #1 each 03/16/21 [Rx Last Taken Unknown] lancets #50 each 03/16/21 [Rx Last Taken Unknown] omeprazole 40 mg capsule,delayed release 40 mg PO DAILY #90 cap 05/21/21 [Rx Last Taken Unknown] albuterol sulfate 90 mcg/actuation aerosol inhaler 2 puff INHALATION Q6H PRN #8.5 g 06/13/21 [Rx Last Taken Unknown] budesonide-formoterol HFA 160 mcg-4.5 mcg/actuation aerosol inhaler 2 puff INHALATION BID #10.2 g 06/13/21 [Rx Last Taken Unknown] fluticasone propionate 50 mcg/actuation nasal spray,suspension See Rx Instructions .ROUTE PRN PRN #15.8 ml 06/13/21 [Rx Last Taken Unknown] lisinopril 20 mg tablet 20 mg PO DAILY #90 tab 06/13/21 [Rx Last Taken Unknown] rosuvastatin 10 mg tablet 10 mg PO DAILY #90 tab 06/13/21 [Rx Last Taken Unknown] salt irrigation solution no.1 2 spray INTRANASAL QDAY PRN #177 ml 06/13/21 [Rx Last Taken Unknown] ondansetron 4 mg disintegrating tablet 4 mg PO Q8H PRN PRN #30 tab 07/16/21 [Rx Last Taken Unknown] Allergy/AdvReac Type Severity Reaction Status Date / Time red dye Allergy Severe swelling Verified 08/30/21 11:02 carbidopa Allergy Unknown Verified 08/30/21 11:02 gabapentin Allergy Unknown Verified 08/30/21 11:02 latex Allergy Rash Verified 08/30/21 11:02 quetiapine fumarate Allergy Other Verified 08/30/21 11:02 [From Seroquel] topiramate [From Topamax] Allergy Hives Verified 08/30/21 11:02 tramadol HCl [From Ultram] Allergy Other Verified 08/30/21 11:02 amitriptyline AdvReac Vomiting Verified 08/30/21 11:02 aspirin AdvReac Upset Verified 08/30/21 11:02 Stomach codeine AdvReac Vomiting Verified 08/30/21 11:02 cyclobenzaprine HCl AdvReac Upset Verified 08/30/21 11:02 [From Flexeril] Stomach etodolac [Etodolac] AdvReac Vomiting Verified 08/30/21 11:02 hydrocodone bitartrate AdvReac Vomiting Verified 08/30/21 11:02 [From Vicodin] ketorolac tromethamine AdvReac Other Verified 08/30/21 11:02 [From Toradol] metformin AdvReac Diarrhea Verified 08/30/21 11:02 metoclopramide [From Reglan] AdvReac Other Verified 08/30/21 11:02 morphine AdvReac Vomiting Verified 08/30/21 11:02 naproxen [From Naprosyn] AdvReac Upset Verified 08/30/21 11:02 Stomach propoxyphene napsylate AdvReac Vomiting Verified 08/30/21 11:02 [From Dean-Jose 100] Family History Mother Malignant hyperthermia due to anesthesia Angina pectoris Arthritis Bowel disease Myocardial infarction Heart disease Hypertension High cholesterol CVA (cerebral vascular accident) Father Asthma Arthritis Myocardial infarction Heart disease High cholesterol Hypertension CVA (cerebral vascular accident) Leukemia Diabetes Grandmother Lung cancer Grandfather Diabetes Grandmother Diabetes Surgical History History of History of cholecystectomy History of orthopedic surgery History of partial hysterectomy History of total hysterectomy S/P knee surgery Social History Smoking Status: Current some day smoker tobacco type: cigarettes Tobacco: How many years used: 44 Electronic Cigarette Use: not used second hand exposure: Yes quit status: considering quitting counseling given: provider counseling alcohol intake: never substance use type: does not use what type of physical activity do you participate in: walking and bicycling ROS ROS ED Constitutional Constitutional ED: Reports systems reviewed and no addt'l complaints, except as documented; Denies body ache(s), change in weight or chills Eyes Eyes: Denies acute decrease in peripheral vision, change in vision, double vision or loss of vision ENT ENT ED: Reports none; Denies ear pain, lip swelling, loss taste/smell, neck pain, otalgia or sore throat Cardiovascular Cardiovascular: Reports none; Denies abdominal pain, chest pain with activity, leg edema, lightheadedness, palpitations, rapid heart rate or syncope Respiratory/Chest Respiratory/Chest: Reports none; Denies change in mental status, dry cough, dyspnea, hemoptysis, shortness of breath at rest or shortness of breath with exertion Gastrointestinal Gastrointestinal: Reports none; Denies abdominal pain, change in stool character, diarrhea, hematemesis, hematochezia, melena, rectal bleeding or vomiting Genitourinary Genitourinary ED: Reports none; Denies abdominal discomfort, anuria, dysuria, genital pain or polyuria Musculoskeletal Musculoskeletal: Reports none and other Details: Bilateral knee pain and abrasions ; Denies arthralgias, back pain, difficulty walking, extremity pain, muscle weakness or myalgias Integumentary Reports none; Denies abscess or rash Neurologic Neurologic: Reports none; Denies abnormal gait, confusion, focal weakness, frequent falls, headache(s), loss of vision, numbness, paresthesias, radicular pain, vertigo or weakness Psychiatric Psychiatric: Reports systems reviewed and no addt'l complaints, except as documented and none; Denies behavioral changes, confusion, difficulty concentrating, hallucinations, suicidal ideation, tactile hallucinations or visual hallucinations Endocrine Endocrinology: Denies none, cold intolerance, excessive sweating, fatigue or heat intolerance Hematologic/Lymphatic Hematologic/Lymphatic: Reports none; Denies anemia, easy bleeding or easy bruising Allergic/Immunologic Allergic/Immunologic ED: Denies as per HPI, none, lip swelling, mouth swelling, throat swelling, tongue swelling or hives EXAM Physical Exam Const Vital Signs: 08/30/21 11:00 Temperature 98.0 F Temperature Source Temporal Pulse Rate 127 H Respiratory Rate 16 Blood Pressure 149/114 H Blood Pressure Mean 125 Pulse Ox 97 Oxygen Delivery Method Nasal Cannula Positive well nourished and well developed General Appearance ED: well developed and NAD HEENT Reports TM's clear and moist mucous membranes normocephalic and atraumatic; Negative for trauma or tenderness Tympanic Membrane ED: Yes TM's clear Eyes PERRL and EOMs intact bilaterally General Eye ED: Negative for pale conjunctiva or scleral icterus Neck no lymphadenopathy, supple and no JVD General: Negative for tenderness Chest Wall inspection of chest normal and palpation of chest normal Chest: Negative for tenderness Resp normal respiratory effort and clear to auscultation bilaterally Effort and Inspection: Negative for respiratory distress or pain with movement Auscultation: Negative for rhonchi, wheezes or diminished lung sounds Cardio regular rate, regular rhythm, S1 normal heart sound, S2 normal heart sound and no murmurs Peripheral Pulses: pulses 2+ throughout GI normal to inspection, nondistended, normoactive bowel sounds, soft to palpation, non-tender, non-distended and no masses Back/Spine no CVA tenderness and no thoracic nor lumbar tenderness Extremity Extremity Narrative: Patient has superficial abrasions to both anterior knees. Patient has diffuse tenderness to both knees along the area of the patella and medial and lateral joint lines. Patient has pain with flexion extension of both knees. There is no obvious deformity. Neurovascular intact distally. Evaluation of the left elbow does reveal a small area of ecchymosis over the olecranon with some mild tenderness. She has normal range of motion at the relatively painless. No deformity. Neurovascularly intact. General Extremety ED: Negative for edema General Extremity: Negative for edema Neuro oriented x3, CN's II-XII intact bilaterally, no sensory deficits noted and gait normal Sensorium / Orientation: awake, alert, oriented to person, oriented to place and oriented to time Motor Exam: strength 5/5 throughout and strength abnormal Psych mental status grossly normal Skin no rashes or lesions noted and no wounds MDM MDM MDM Narrative Medical decision making narrative: Patient did not want Lev wrap for her knees as she states she has them at home. Patient will use Tylenol for discomfort and ice. Patient will follow up with her orthopedic surgeon. Radiography Diagnostic Testing: Radiology Impression Knee X-Ray 08/30/21 11:32 IMPRESSION: No demonstrated fracture or malalignment. Electronically Signed: Stanley Vee MD ([place]) at 12:03 EDT , Service support , Knee X-Ray 08/30/21 11:44 IMPRESSION: Normal x-ray examination of the knee. Electronically Signed: Stanley Vee MD ([place]) at 12:02 EDT , Service support , 4 view x-rays of bilateral knees obtained interpreted by myself as no acute fractures or dislocations. Radiology was in agreement. Discharge Plan Triage Chief Complaint: Lower Extremity Injury ED Provider: Murtaza Reynolds Dx/Rx/DC Orders Clinical Impression: Contusion of knee, Abrasion Instructions: ED Abrasion, ED Contusion, Lower Extremity Prescriptions: No Action L.acidoph, paracasei,B. lactis 10 billion cell capsule 1 cell PO DAILY Qty: 90 RF: 3 albuterol sulfate [Ventolin HFA] 90 mcg/actuation HFA aerosol inhaler 2 puff INHALATION Q6H PRN (Reason: shortness of breath or wheezing) Qty: 8.5 RF: 1 budesonide-formoterol [Symbicort] 160-4.5 mcg/actuation HFA aerosol inhaler 2 puff INHALATION BID Qty: 10.2 RF: 3 fluticasone propionate 50 mcg/actuation spray,suspension See Rx Instructions .Route PRN PRN (Reason: Nasal Congestion) Qty: 15.8 RF: 3 lisinopril 20 mg tablet 20 mg PO DAILY Qty: 90 RF: 3 rosuvastatin [Crestor] 10 mg tablet 10 mg PO DAILY Qty: 90 RF: 3 [place] Complete Aerosol 2 spray INTRANASAL QDAY PRN (Reason: nasal congestion) Qty: 177 RF: 1 ondansetron 4 mg tablet,disintegrating 4 mg PO Q8H PRN PRN (Reason: Nausea) Qty: 30 RF: 1 alprazolam 2 MG tablet 2 mg PO TID PRN (Reason: Anxiety) RF: 0 (DME) Altera Nebulizer System Misc See Rx Instructions .ROUTE .MEDSUPPLY Qty: 1 RF: 3 (DME) blood-glucose meter [FreeStyle Lite Meter] Kit See Rx Instructions .MEDSUPPLY Qty: 1 RF: 0 (DME) lancets [FreeStyle Lancets] 28 gauge misc See Rx Instructions .MEDSUPPLY Qty: 200 RF: 3 (DME) FreeStyle Lite Strips Strip See Rx Instructions .MEDSUPPLY Qty: 100 RF: 3 (DME) blood-glucose meter [OneTouch Ultra2 Meter] Kit See Rx Instructions .ROUTE .MEDSUPPLY Qty: 1 RF: 0 (DME) blood sugar diagnostic Strip See Rx Instructions .ROUTE .MEDSUPPLY Qty: 50 RF: 3 (DME) lancets [OneTouch UltraSoft Lancets] Misc See Rx Instructions .ROUTE .MEDSUPPLY Qty: 50 RF: 11 omeprazole 40 mg capsule,delayed release(DR/EC) 40 mg PO DAILY Qty: 90 RF: 3 Primary Care Provider: Nola Rodriguez Referrals: Nola Rodriguez MD [Primary Care Provider] - 3-5 Days Jimmy Gee DO [STAFF PHYSICIAN] - As Needed Disposition Disposition: Home, Self Care
--- NOTE | 2021-08-30 11:44 | RAD_ITS ---
STUDY: X-RAY - LEFT KNEE REASON FOR EXAM: Female, 56 years old. PAIN TECHNIQUE: 4 view(s) of the knee. COMPARISON: None. FINDINGS: Normal visualized distal femur. Normal visualized proximal tibia and fibula. Normal proximal tibiofibular articulation. Normal medial femorotibial compartment. Normal lateral femorotibial compartment. Normal patellofemoral articulation. There is no demonstrated joint effusion. The soft tissue structures are unremarkable. RAD/Knee 4 or More Views IMPRESSION: Normal x-ray examination of the knee. Electronically Signed: Stanley Vee MD ([place]) at 12:02 EDT , Service support ,
[2021-08-30] MEDS: Diphth,Pertuss(Acell),Tet Vac 0.5 ML Vial IM (12:24)
== END 2021-08-30 12:45 | disposition home or self-care (01) ==
PROVIDERS: Emergency Provider Emergency Medicine; PCP Internal Medicine
DX: S80.02XA Contusion of left knee, initial encounter (principal); S80.01XA Contusion of right knee, initial encounter; S80.212A Abrasion, left knee, initial encounter; S80.211A Abrasion, right knee, initial encounter; F17.210 Nicotine dependence, cigarettes, uncomplicated; I10 Essential (primary) hypertension; E78.5 Hyperlipidemia, unspecified; J45.909 Unspecified asthma, uncomplicated; W19.XXXA Unspecified fall, initial encounter; Z79.899 Other long term (current) drug therapy
CPT/HCPCS: 73564; 90471; 90715; 99283

== ENCOUNTER → 2021-09-26 | Outpatient (CLI) | payer MEDICAID, SELFPAY ==
[2021-09-26 16:07] LABS: Squamous Epithelial Cells - UA 0 SEEN /hpf (5-10)
[2021-09-26 16:41] LABS: Color, Urine Yellow (Yellow); Glucose, Dipstick Normal (Normal); Ketone-Dipstick 15 mg/dl (Negative); Leukocyte Esterase-Dipstick 25 /ul (Negative); Nitrite-Dipstick Negative (Negative); Occult Blood-Urine 25 /ul (Negative); Protein-Dipstick 15 mg/dl (Negative); Specific Gravity, Urine 1.025 (1.002-1.030); Urine Bilirubin Dipstick Negative (Negative); Urine Clarity Clear (Clear); Urine Urobilinogen 1 mg/dl (Normal)
[2021-09-26 17:11] LABS: Bacteria 0 SEEN /hpf (None Seen); Mucous, Urine 2+ /hpf (<or=2+); Red Blood Cells-Urine 0-5 SEEN /hpf (0-5); White Blood Cells 0-5 SEEN /hpf (0-5)
== END | disposition home or self-care (01) ==
LOC: LABSPEC 16:06
PROVIDERS: PCP Internal Medicine; Referring Provider Nurse Practitioner Family; Visit Provider Nurse Practitioner Family
DX: N39.0 Urinary tract infection, site not specified (principal)
CPT/HCPCS: 81001; 87086

== ENCOUNTER → 2021-10-19 15:00 | Outpatient (CLI) | payer MEDICAID, SELFPAY ==
[2021-10-19 16:42] LABS: Absolute Lymphocyte Count 3.26 X10^3/uL (0.83-4.51); Absolute Neutrophil Count 4.5 X10^3/uL (2.0-7.7); Basophil# 0.03 X10^3/uL; Basophil% 0.4 % (0-1); Eosinophil# 0.16 X10^3/uL; Eosinophils% 1.9 % (0-5); Hematocrit 40.3 % (37-47); Hemoglobin 13.6 g/dL (12.0-15.0); Lymphocyte # 3.26 X10^3/ul (0.83-4.51); Lymphocyte % 38.8 % (19-41); Mean Corp Hgb Conc 33.7 g/dL (32-36); Mean Corpuscular Hgb 30.6 pg (27.0-32.0); Mean Corpuscular Volume 90.6 fL (81-99); Mean Platelet Vol. 9.5 fl (6.2-12.0); Monocyte# 0.39 X10^3/uL; Monocyte% 4.6 % (0-10); NRBC Flagged by Analyzer 0 % (0-5); Neutrophil # 4.53 X10^3/uL (2.7-7.7); Neutrophil % 53.9 % (47-70); Platelet Count 308 K/mm3 (150-450); RBC Distribution Width CV 12.7 % (11.6-14.6); RBC Distribution Width SD 42.1 fl (35.1-43.9); Red Blood Count 4.45 M/mm3 (4.2-5.4); White Blood Count 8.4 K/mm3 (4.4-11.0)
[2021-10-19 17:04] LABS: ALB/GLOB Ratio 0.9 RATIO (0.9-2.4); AST(SGOT) 10 U/L (15-37); Alanine Aminotransfer ALT/SGPT 23 U/L (13-56); Albumin, Serum 3.4 g/dL (3.2-5.0); Alkaline Phosphatase 117 U/L (45-117); Anion Gap 7 (5-15); BUN 16 mg/dL (7-18); BUN/Creat Ratio 26.3 RATIO (10-20); Calcium,Total 8.9 mg/dL (8.5-10.1); Chloride 106 mmol/L (98-107); Creatinine, Serum 0.61 mg/dL (0.55-1.02); EST Glomerular Filtration Rate 108 mL/min (>60); Est Glom Filt Rate - Afr Amer 130 mL/min (>60); Globulin 3.6 g/dL (2.2-4.2); Glucose 230 mg/dL (74-106); Sodium Level 140 mmol/L (136-145); Thyroid Stim Hormone (TSH) 0.78 uIU/mL (0.358-3.74)
== END ==
PROVIDERS: PCP Internal Medicine; Referring Provider Internal Medicine; Visit Provider Internal Medicine
DX: I10 Essential (primary) hypertension (principal); F41.9 Anxiety disorder, unspecified; F32.A Depression, unspecified
CPT/HCPCS: 36415; 80053; 84443; 85025

== ENCOUNTER → 2021-10-23 13:09 | Outpatient (CLI) | payer MEDICAID, SELFPAY ==
--- NOTE | 2021-10-23 13:15 | CT_ITS ---
STUDY: CT BRAIN WITHOUT CONTRAST REASON FOR EXAM: Female, 56 years old. Fall. Concussion RADIATION DOSAGE (If Supplied By Facility): CTDIvol = ( 47.06 ) mGy, DLP = ( 855.03 ) mGycm TECHNIQUE: Transaxial CT imaging of the brain was performed without administration of intravenous contrast material. Individualized dose optimization techniques were used for this CT. COMPARISON: No relevant priors. FINDINGS: Normal soft tissue structures. Normal calvarium. There is mild cerebral atrophy with widening of the extra-axial spaces and ventricular dilatation. Normal white matter tracts of the cerebral hemispheres. Normal basal ganglia and thalami. Normal brainstem. There is an empty sella is deformity. Normal cerebellum. There is no intracranial hemorrhage. There are no findings of an acute ischemic infarction. Normal visualized paranasal sinuses. CT/Brain/Head without Contrast IMPRESSION: Chronic involutional changes of the brain. No acute intracranial process. Electronically Signed: Tara Patel MD at 13:41 EST Tel , Service support ,
--- NOTE | 2021-10-23 13:15 | EKG12_ITS ---
Test Reason : ROUTINE Blood Pressure : / mmHG Vent. Rate : 087 BPM Atrial Rate : 087 BPM P-R Int : 192 ms QRS Dur : 070 ms QT Int : 358 ms P-R-T Axes : 063 063 059 degrees QTc Int : 430 ms Normal sinus rhythm Septal infarct , age undetermined Abnormal ECG Confirmed by REYMUNDO ADLER, RUBEN ([id number]), publications editor COLBY MACDONALD ([id number]) on 10/24/2021 7:41:53 AM Referred By: Nola Rodriguez Confirmed By:RUBEN DWYER MD
== END ==
PROVIDERS: PCP Internal Medicine; Referring Provider Internal Medicine; Visit Provider Internal Medicine
DX: S06.0X9A Concussion with loss of consciousness of unspecified duration, initial encounter (principal); I10 Essential (primary) hypertension; W19.XXXA Unspecified fall, initial encounter
CPT/HCPCS: 70450; 93005

== ENCOUNTER → 2021-11-07 07:35 | Outpatient (CLI) | payer MEDICAID, SELFPAY ==
--- NOTE | 2021-11-07 09:18 | STRESSREP ---
Stress Test Report Date: 11-07-2021 Procedure: Pharmacologic stress nuclear imaging study Indications: Abnormal ECG Consent: Per the patient Procedure: The patient underwent pharmacologic (Regadenoson 0.4mg ) evaluation with a peak heart rate of 118 beats per minute (72%predicted maximal heart rate) and a peak blood pressure of 128/82 mmHg. The baseline ECG demonstrated normal sinus rhythm. The peak pharmacologic ECG demonstrated no obvious ST segment changes. There were no cardiac dysrhythmias pretest, during pharmacologic infusion, or recovery. There was no complaint of chest discomfort during pharmacologic infusion or recovery. The examination was discontinued secondary to completion of protocol. Impression: 1. Pharmacologic (Regadenoson) evaluation 2. Peak pharmacologic ECG with no obvious ST segment changes. 3. There were no cardiac dysrhythmias pretest, during pharmacologic infusion, or recovery. 4. Nuclear images pending Myocardial perfusion imaging study: Technique: The patient was injected with 11.1 millicuries of technetium 99m Cardiolite and subsequently rest SPECT Cardiolite nuclear imaging was obtained in the horizontal long, vertical long, and short axis views. The patient underwent pharmacologic (Regadenoson) evaluation with a peak heart rate of 118 beats per minute (72% percent predicted maximal heart rate) and a peak blood pressure of 128/82 mmHg. The patient was injected with 32.7 millicuries of technetium 99m Cardiolite and subsequently stress SPECT Cardiolite nuclear imaging was obtained in the horizontal long, vertical long, and short axis views. A gated Cardiolite study at peak stress was obtained. Interpretation: Rest and stress SPECT Cardiolite nuclear imaging status post realignment, normalization, and attenuation correction demonstrate relative uniform tracer uptake and myocardial perfusion appearing within normal limits. There is end systolic thickening and brightening. The gated Cardiolite study demonstrates myocardial thickening and inward wall motion. The reported LVEF is 77%. Impression: 1. Rest and stress SPECT Cardiolite nuclear imaging demonstrate relative uniform tracer uptake and myocardial perfusion appearing within normal limits. 2. The gated Cardiolite study reports an LVEF of 77%. This note was generated with [employer] software. It may contain incorrect words, spelling, and punctuation that were not noted in checking the note before signing.
== END ==
PROVIDERS: PCP Internal Medicine; Referring Provider Internal Medicine; Visit Provider Internal Medicine
DX: R94.31 Abnormal electrocardiogram [ECG] [EKG] (principal)
CPT/HCPCS: 78452; 93017; A9500; A4216; J2785

== ENCOUNTER 2022-02-06 11:40 | Emergency (ER) | payer MEDICAID, SELFPAY ==
[2022-02-06 11:41] VITALS: BP 146/99; PULSE 87; RESP 16; TEMP 36.1; O2SAT 98; BMI 29.9
--- NOTE | 2022-02-06 13:49 | EDS_ITS ---
HPI History of Present Illness Chief Complaint: Back Informant: patient Narrative Narrative: Patient was seen at her primary physicians today. She had multiple sinus type complaints. She states those are fully taken care of and she has no concerns about that now. She also has exacerbation of back pain. She slipped and fell on the ice and that aggravated her back. She has a long history of back pain. She has generally refused surgery. She did not want to take oral narcotics because they have killed her family. She usually takes nonsteroidals [id number] as well as prescribed. She states the only thing that calms her back down when it is bad is injectable Dilaudid. She was sent over here by primary for this. Patient had a mechanical slip and fall. She has no radicular symptoms but the pain does radiate toward her hips. No bowel or bladder dysfunction. She is able to get up and walk around. She states she feels internally shaky sometimes walking but this is not new. [facility] Medical History Abnormal EKG Acute exacerbation of chronic low back pain Acute sinusitis, unspecified Anxiety and depression Asthma Carpal tunnel syndrome Chronic headaches Chronic radicular lumbar pain Concussion Cough Diabetes Fall GERD (gastroesophageal reflux disease) Head injury High blood pressure HTN (hypertension) Hx of emotional problems Hyperlipidemia IBS (irritable bowel syndrome) Left otitis externa Muscle spasm Neuropathy Panic attack Post concussion syndrome Seasonal allergies Type 2 diabetes mellitus URI (upper respiratory infection) Vision problems Home Medications alprazolam 2 mg PO TID PRN 03/24/19 [History Last Taken 08/22/20 04:30 2 MG] nebulizers #1 ea 09/06/20 [Rx Last Taken Unknown] L.acidoph, paracasei,B. lactis 10 billion cell capsule 1 cell PO DAILY #90 cap 11/09/20 [Rx Last Taken Unknown] lancets 28 gauge #200 ea 11/14/20 [Rx Last Taken Unknown] budesonide-formoterol HFA 160 mcg-4.5 mcg/actuation aerosol inhaler 2 puff INHALATION BID #10.2 g 10/24/21 [Rx Last Taken Unknown] fluticasone propionate 50 mcg/actuation nasal spray,suspension See Rx Instructions .ROUTE PRN PRN #15.8 ml 11/16/21 [Rx Last Taken Unknown] ipratropium 0.5 mg-albuterol 3 mg (2.5 mg base)/3 mL nebulization soln 3 ml INHALATION Q8H PRN #90 ml 11/16/21 [Rx Last Taken Unknown] lisinopril 20 mg tablet 20 mg PO DAILY #90 tab 11/16/21 [Rx Last Taken Unknown] omeprazole 40 mg capsule,delayed release 40 mg PO DAILY #90 cap 11/16/21 [Rx Last Taken Unknown] ondansetron 4 mg disintegrating tablet 4 mg PO Q8H PRN PRN #30 tab 11/16/21 [Rx Last Taken Unknown] rosuvastatin 10 mg tablet 10 mg PO DAILY #90 tab 11/16/21 [Rx Last Taken Unknown] blood sugar diagnostic #100 ea 11/27/21 [Rx Last Taken Unknown] blood-glucose meter #1 ea 11/27/21 [Rx Last Taken Unknown] blood sugar diagnostic #50 ea 11/28/21 [Rx Last Taken Unknown] blood-glucose meter #1 ea 11/28/21 [Rx Last Taken Unknown] lancets 32 gauge #100 ea 11/28/21 [Rx Last Taken Unknown] cholecalciferol (vitamin D3) 25 mcg (1,000 unit) capsule 25 mcg PO DAILY 12/07/21 [History Last Taken Unknown] mv-min-vit C-ascorb Xp-Kuv-Htf-herb #124 333 mg-1.7 mg chewable tablet tab PO 12/07/21 [History Last Taken Unknown] Ventolin HFA 90 mcg/actuation aerosol inhaler 2 puff INHALATION Q6H PRN #8 g NS 01/28/22 [Rx Last Taken Unknown] amoxicillin 875 mg-potassium clavulanate 125 mg tablet 1 tab PO BID #20 tab 02/06/22 [Rx Last Taken Unknown] fluconazole 150 mg tablet 150 mg PO Q3D #2 tab 02/06/22 [Rx Last Taken Unknown] nystatin 100,000 unit/mL oral suspension 5 ml PO Q6H 14 Days #280 ml 02/06/22 [Rx Last Taken Unknown] Allergy/AdvReac Type Severity Reaction Status Date / Time red dye Allergy Severe swelling Verified 02/06/22 10:14 carbidopa Allergy Unknown Verified 02/06/22 10:14 gabapentin Allergy Unknown Verified 02/06/22 10:14 latex Allergy Rash Verified 02/06/22 10:14 quetiapine fumarate Allergy Other Verified 02/06/22 10:14 [From Seroquel] topiramate [From Topamax] Allergy Hives Verified 02/06/22 10:14 tramadol HCl [From Ultram] Allergy Other Verified 02/06/22 10:14 amitriptyline AdvReac Vomiting Verified 02/06/22 10:14 aspirin AdvReac Upset Verified 02/06/22 10:14 Stomach codeine AdvReac Vomiting Verified 02/06/22 10:14 cyclobenzaprine HCl AdvReac Upset Verified 02/06/22 10:14 [From Flexeril] Stomach etodolac [Etodolac] AdvReac Vomiting Verified 02/06/22 10:14 hydrocodone bitartrate AdvReac Vomiting Verified 02/06/22 10:14 [From Vicodin] ketorolac tromethamine AdvReac Other Verified 02/06/22 10:14 [From Toradol] metformin AdvReac Diarrhea Verified 02/06/22 10:14 metoclopramide [From Reglan] AdvReac Other Verified 02/06/22 10:14 morphine AdvReac Vomiting Verified 02/06/22 10:14 naproxen [From Naprosyn] AdvReac Upset Verified 02/06/22 10:14 Stomach propoxyphene napsylate AdvReac Vomiting Verified 02/06/22 10:14 [From Darvocet-N 100] Family History Mother Malignant hyperthermia due to anesthesia Angina pectoris Arthritis Bowel disease Myocardial infarction Heart disease Hypertension High cholesterol CVA (cerebral vascular accident) Father Asthma Arthritis Myocardial infarction Heart disease High cholesterol Hypertension CVA (cerebral vascular accident) Leukemia Diabetes Grandmother Lung cancer Grandfather Diabetes Grandmother Diabetes Surgical History History of History of cholecystectomy History of orthopedic surgery History of partial hysterectomy History of total hysterectomy S/P knee surgery Social History Smoking Status: Current some day smoker tobacco type: cigarettes Tobacco: How many years used: 44 Electronic Cigarette Use: not used second hand exposure: Yes quit status: considering quitting counseling given: provider counseling alcohol intake: never substance use type: does not use what type of physical activity do you participate in: walking and bicycling ROS ROS ED Constitutional Constitutional ED: Denies chills or fever(s) Cardiovascular Cardiovascular: Denies chest pain or palpitations Respiratory/Chest Respiratory/Chest: Denies dyspnea Gastrointestinal Gastrointestinal: Reports nausea and other Details: Nausea is a chronic problem for her. She does have ondansetron at home. ; Denies abdominal pain or vomiting Genitourinary Genitourinary ED: Denies dysuria, hematuria or urinary frequency Musculoskeletal Musculoskeletal: Reports back pain Integumentary Denies rash Neurologic Neurologic: Denies headache(s) or weakness Psychiatric Psychiatric: Denies depression Endocrine Endocrinology: Denies polydipsia or polyuria Hematologic/Lymphatic Hematologic/Lymphatic: Denies easy bleeding or easy bruising Allergic/Immunologic Allergic/Immunologic ED: Denies mouth swelling or urticaria EXAM Physical Exam Const Vital Signs: 02/06/22 11:41 Temperature 97 F L Temperature Source Temporal Pulse Rate 87 Respiratory Rate 16 Blood Pressure 146/99 H Blood Pressure Mean 114 Pulse Ox 98 Oxygen Delivery Method Room Air Positive well nourished and well developed Constitutional Narrative: Patient is actually sitting calmly in bed. She stands up easily. She walked to the bathroom back with no problems. General Appearance ED: well developed and NAD HEENT Negative for trauma Eyes EOMs intact bilaterally Resp normal respiratory effort and clear to auscultation bilaterally Cardio regular rate and regular rhythm GI normal to inspection, nondistended, normoactive bowel sounds, soft to palpation and non-tender; Negative for no masses Inspection: Negative for abdominal distention Palpation: Negative for tender or guarding Back/Spine normal to inspection Back/Spine Narrative: Patient has some mild nonfocal tenderness diffusely from about L3 down all the way to both iliac crest. No skin changes. No rash. No vesicles. Extremity normal to inspection Extremity Narrative: Extremities show no edema or cords. General Extremety ED: Negative for edema or tenderness General Extremity: Negative for edema Neuro oriented x3 and no sensory deficits noted Neuro Narrative: Patient has normal strength throughout. She has normal gait. She can stand about off the bed easily. Walks to the bathroom without any difficulty whatsoever including including stopping and turning. Sensorium / Orientation: alert; Negative for confused, lethargic or stuporous Motor Exam: strength 5/5 throughout; Negative for strength abnormal Psych mental status grossly normal Skin no rashes or lesions noted MDM MDM MDM Narrative Medical decision making narrative: I talked to the patient about options. I explained that if she has chronic back pain that is markedly worse after falling on the ice I would normally do imaging. She does not want this done. She states she has somebody waiting for her. She states her son is in the . She states she has a follow-up with orthopedics coming in the next week or so. She does need something to knock the pain down. If she refuses x-rays or CT I cannot force this. I will give her a dose of Dilaudid. I did do an online prescribing report. The only narcotic I see is about a year and a half ago. I think this patient does have real pain. She will follow up with her physicians as planned. Discharge Plan Triage Chief Complaint: Back ED Provider: Isaiah Denny Dx/Rx/DC Orders Clinical Impression: Acute exacerbation of chronic low back pain Instructions: ED Back Pain (Acute or Chronic), ED Chronic Pain Prescriptions: No Action L.acidoph, paracasei,B. lactis 10 billion cell capsule 1 cell PO DAILY Qty: 90 RF: 3 Airborne (ascorbate sodium) 333-1.7 mg tablet,chewable PO RF: 0 cholecalciferol (vitamin D3) 25 mcg (1,000 unit) capsule 25 mcg PO DAILY RF: 0 amoxicillin-pot clavulanate 875-125 mg tablet 1 tab PO BID Qty: 20 RF: 0 fluconazole [Diflucan] 150 mg tablet 150 mg PO Q3D Qty: 2 RF: 1 nystatin 100,000 unit/mL suspension 5 ml PO Q6H 14 Days Qty: 280 RF: 1 alprazolam 2 MG tablet 2 mg PO TID PRN (Reason: Anxiety) RF: 0 (DME) Altera Nebulizer System Misc See Rx Instructions .ROUTE .MEDSUPPLY Qty: 1 RF: 3 (DME) lancets [FreeStyle Lancets] 28 gauge misc See Rx Instructions .MEDSUPPLY Qty: 200 RF: 3 budesonide-formoterol [Symbicort] 160-4.5 mcg/actuation HFA aerosol inhaler 2 puff INHALATION BID Qty: 10.2 RF: 3 fluticasone propionate 50 mcg/actuation spray,suspension See Rx Instructions .Route PRN PRN (Reason: Nasal Congestion) Qty: 15.8 RF: 3 ipratropium-albuterol 0.5 mg-3 mg(2.5 mg base)/3 mL solution for nebulization 3 ml INHALATION Q8H PRN (Reason: shortness of breath or wheezing) Qty: 90 RF: 3 lisinopril 20 mg tablet 20 mg PO DAILY Qty: 90 RF: 3 omeprazole 40 mg capsule,delayed release(DR/EC) 40 mg PO DAILY Qty: 90 RF: 3 ondansetron 4 mg tablet,disintegrating 4 mg PO Q8H PRN PRN (Reason: Nausea) Qty: 30 RF: 1 rosuvastatin [Crestor] 10 mg tablet 10 mg PO DAILY Qty: 90 RF: 3 (DME) OneTouch Verio test strips Strip See Rx Instructions .ROUTE .MEDSUPPLY Qty: 100 RF: 3 (DME) blood-glucose meter [OneTouch Verio Flex meter] Misc See Rx Instructions .ROUTE .MEDSUPPLY Qty: 1 RF: 0 (DME) Blood Glucose Test Strip See Rx Instructions .ROUTE .MEDSUPPLY Qty: 50 RF: 3 (DME) blood-glucose meter Misc See Rx Instructions .ROUTE .MEDSUPPLY Qty: 1 RF: 0 (DME) lancets 32 gauge misc See Rx Instructions .ROUTE .MEDSUPPLY Qty: 100 RF: 3 albuterol sulfate [Ventolin HFA] 90 mcg/actuation HFA aerosol inhaler 2 puff INHALATION Q6H PRN (Reason: shortness of breath or wheezing) Qty: 8 RF: 3 Primary Care Provider: Nola Rodriguez Referrals: Nola Rodriguez MD [Primary Care Provider] - As Needed Activity Restrictions/Additional Instructions: Follow-up with your physician and orthopedics as scheduled. Disposition Disposition: Home, Self Care
[2022-02-06] MEDS: HYDROmorphone 1 MG/ML Syringe IM (14:09)
[2022-02-06] MEDS: Ondansetron ODT 4 MG Tablet PO (14:09)
== END 2022-02-06 14:14 | disposition home or self-care (01) ==
PROVIDERS: Emergency Provider Emergency Medicine; PCP Internal Medicine; Visit Provider Emergency Medicine
DX: M54.50 Low back pain, unspecified (principal); E11.40 Type 2 diabetes mellitus with diabetic neuropathy, unspecified; M25.551 Pain in right hip; F17.210 Nicotine dependence, cigarettes, uncomplicated; M25.552 Pain in left hip; E78.5 Hyperlipidemia, unspecified; I10 Essential (primary) hypertension; Z91.81 History of falling; G89.29 Other chronic pain; J45.909 Unspecified asthma, uncomplicated; K21.9 Gastro-esophageal reflux disease without esophagitis; Z79.899 Other long term (current) drug therapy
CPT/HCPCS: 96372; 99282

== ENCOUNTER 2022-02-15 16:27 | Emergency (ER) | payer MEDICAID, SELFPAY ==
[2022-02-15 16:28] VITALS: BP 133/88; PULSE 92; RESP 16; TEMP 36.2; O2SAT 99; BMI 27.6
--- NOTE | 2022-02-15 17:10 | ED.RN ---
pt left reports she could not wait any longer.
== END 2022-02-15 17:09 | disposition left against medical advice (07) ==
LOC: ED 17:30
PROVIDERS: PCP Internal Medicine
DX: M54.9 Dorsalgia, unspecified (principal); Z53.21 Procedure and treatment not carried out due to patient leaving prior to being seen by health care provider

== ENCOUNTER 2022-02-19 14:21 | Outpatient (CLI) | payer MEDICAID, SELFPAY ==
--- NOTE | 2022-02-19 14:23 | CT_ITS ---
STUDY: LOW DOSE CT LUNG CANCER SCREENING REASON FOR EXAM: Female, 56 years old. Lung cancer screening -- and gt;96 pk yr hx;current smoker; asymptomatic RADIATION DOSAGE (If Supplied By Facility): CTDIvol = ( 2.39 ) mGy, DLP = ( 73.85 ) mGycm TECHNIQUE: No contrast was administered. Low dose technique was utilized (average mAS-38 and kVp 120). 1.25 mm axial source images with a slice interval of 1.25-mm were reconstructed in lung windows. 2.5 mm axial source images with a slice interval of 2.5-mm were reconstructed in lung windows. 5.0 mm axial source images with a slice interval of 5.0-mm were reconstructed in soft tissue windows. Nodule measured using lung windows on PACS and/or independent workstation with automated measurement of minimum and maximum diameter. Nodule measurement reported as average diameter rounded to the nearest whole number. Growth is defined as an increase ins size of greater than 1.5 mm. COMPARISON: Comparison is made with prior study dated 01/09/2021. NODULES: No suspicious nodules are seen. Emphysema: Hyperinflation. Emphysematous changes more prominent in the upper lobes. Mild degree of linear scarring in the lingular segment of the left upper lobe and medial aspect of the right middle lobe. Endobronchial lesion: None Aorta: Atherosclerotic plaque formation. Coronary arteries: Coronary artery calcification. Heart: Minimal degree of anterior pericardial thickening. Pulmonary artery: Unremarkable Mediastinal nodes: Small benign-appearing mediastinal lymph nodes. Other chest and abdominal findings: CT/Low Dose CT Lung Screening IMPRESSION: Lung-RADS category 2 - Continue annual screening with LDCT in 12 months. IMPORTANT NOTES FOR USE: ACR Lung-RADS Version 1.1 Assessment Categories Release Date: 2018 Category: Coded 0-4 bases on nodule(s) with highest degree of suspicion. Negative screen is defined as categories 1 and 2; a positive screen is defined as categories 3 and 4. Category 3 and 4A nodules that are unchanged on interval CT should be coded as category 2, and individuals returned to screening in 12 months. Category 4X: Category 3 or 4 nodules with additional imaging findings that increase the suspicion of lung cancer, such as spiculation, GGN that doubles in size in 1 year, enlarged lymph notes, etc. Category Modifiers: S (significant finding unrelated to lung cancer) Electronically Signed: Clayton Grimm MD at 15:00 EDT ,
== END 2022-02-19 23:59 | disposition home or self-care (01) ==
LOC: CT 14:22
PROVIDERS: PCP Internal Medicine; Referring Provider Nurse Practitioner Family; Visit Provider Nurse Practitioner Family
DX: Z87.891 Personal history of nicotine dependence (principal); Z12.2 Encounter for screening for malignant neoplasm of respiratory organs
CPT/HCPCS: 71271

== ENCOUNTER 2022-03-11 11:19 | Emergency (ER) | payer MEDICAID, SELFPAY ==
[2022-03-11 11:19] VITALS: BP 161/111; PULSE 91; RESP 19; O2SAT 98
[2022-03-11 11:20] VITALS: BP 131/108; PULSE 121; RESP 18; TEMP 36.2; O2SAT 97; BMI 26.7
--- NOTE | 2022-03-11 11:35 | EKG12_ITS ---
Test Reason : CHEST PAIN Blood Pressure : / mmHG Vent. Rate : 101 BPM Atrial Rate : 101 BPM P-R Int : 176 ms QRS Dur : 066 ms QT Int : 360 ms P-R-T Axes : 071 059 070 degrees QTc Int : 466 ms Sinus tachycardia Septal [place], age undetermined, cannot be excluded Confirmed by NISA ADLER, JIMMIE ([id number]), advertising editor COLBY MACDONALD ([id number]) on 03/14/2022 1:16:41 PM Referred By: APRIL Confirmed By:JIMMIE APULA MD
[2022-03-11 12:25] LABS: Absolute Lymphocyte Count 3.65 X10^3/uL (0.83-4.51); Basophil# 0.05 X10^3/uL; Basophil% 0.5 % (0-1); Eosinophil# 0.17 X10^3/uL; Eosinophils% 1.6 % (0-5); Hematocrit 45.5 % (37-47); Hemoglobin 15.1 g/dL (12.0-15.0); Lymphocyte # 3.65 X10^3/ul (0.83-4.51); Lymphocyte % 34.4 % (19-41); Mean Corp Hgb Conc 33.2 g/dL (32-36); Mean Corpuscular Hgb 31.4 pg (27.0-32.0); Mean Corpuscular Volume 94.6 fL (81-99); Mean Platelet Vol. 9.5 fl (6.2-12.0); Monocyte# 0.68 X10^3/uL; Monocyte% 6.4 % (0-10); NRBC Flagged by Analyzer 0 % (0-5); Neutrophil # 5.96 X10^3/uL (2.7-7.7); Neutrophil % 56.2 % (47-70); Platelet Count 332 K/mm3 (150-450); Red Blood Count 4.81 M/mm3 (4.2-5.4); White Blood Count 10.6 K/mm3 (4.4-11.0)
--- NOTE | 2022-03-11 12:36 | EDS_ITS ---
HPI History of Present Illness Chief Complaint: Chest Pain Narrative Narrative: 56-year-old female presenting with chest pains which she is experiencing for about a week. She states he is very depressed over the loss of her mother about a week ago. Patient has been crying uncontrollably. Patient states he has history of anxiety and depression as well as panic disorder and she believes she has been panicking more. She has been seen at that counseling center previously and has an appointment on Friday but has not been able to talk to anybody yet. She is on alprazolam at home. She describes the pain is fleeting pain in the left upper chest which does not radiate. No shortness of breath. Hepatopancreatic denies cardiac history. No history of PE with no current risk factors. [facility] Medical History Abnormal EKG Acute exacerbation of chronic low back pain Acute sinusitis, unspecified Anxiety and depression Asthma Candidiasis of mouth and esophagus Carpal tunnel syndrome Chronic headaches Chronic radicular lumbar pain Concussion Cough Diabetes Encounter for screening for malignant neoplasm of lung in current smoker with 30 pack year history or greater Fall GERD (gastroesophageal reflux disease) Head injury High blood pressure HTN (hypertension) Hx of emotional problems Hyperlipidemia IBS (irritable bowel syndrome) Left otitis externa Muscle spasm Neuropathy Otitis media Panic attack Post concussion syndrome Seasonal allergies Type 2 diabetes mellitus URI (upper respiratory infection) Vision problems Home Medications alprazolam 2 mg PO TID PRN 03/24/19 [History Last Taken 08/22/20 04:30 2 MG] nebulizers #1 ea 09/06/20 [Rx Last Taken Unknown] fluticasone propionate 50 mcg/actuation nasal spray,suspension See Rx Instructions .ROUTE PRN PRN #15.8 ml 11/16/21 [Rx Last Taken Unknown] ipratropium 0.5 mg-albuterol 3 mg (2.5 mg base)/3 mL nebulization soln 3 ml INHALATION Q8H PRN #90 ml 11/16/21 [Rx Last Taken Unknown] lisinopril 20 mg tablet 20 mg PO DAILY #90 tab 11/16/21 [Rx Last Taken Unknown] omeprazole 40 mg capsule,delayed release 40 mg PO DAILY #90 cap 11/16/21 [Rx Last Taken Unknown] ondansetron 4 mg disintegrating tablet 4 mg PO Q8H PRN PRN #30 tab 11/16/21 [Rx Last Taken Unknown] blood sugar diagnostic #100 ea 11/27/21 [Rx Last Taken Unknown] blood-glucose meter #1 ea 11/27/21 [Rx Last Taken Unknown] blood sugar diagnostic #50 ea 11/28/21 [Rx Last Taken Unknown] blood-glucose meter #1 ea 11/28/21 [Rx Last Taken Unknown] lancets 32 gauge #100 ea 11/28/21 [Rx Last Taken Unknown] cholecalciferol (vitamin D3) 25 mcg (1,000 unit) capsule 25 mcg PO DAILY 12/07/21 [History Last Taken Unknown] mv-min-vit C-ascorb Ni-Mjn-Yml-herb #124 333 mg-1.7 mg chewable tablet 4 tab PO DAILY 12/07/21 [History Last Taken Unknown] Ventolin HFA 90 mcg/actuation aerosol inhaler 2 puff INHALATION Q6H PRN #8 g NS 01/28/22 [Rx Last Taken Unknown] tretinoin 0.05 % topical cream 1 applic TOPICAL QHS #20 g 02/15/22 [Rx Last Taken Unknown] budesonide-formoterol HFA 160 mcg-4.5 mcg/actuation aerosol inhaler 2 puff INHALATION BID #10.2 g 03/01/22 [Rx Last Taken Unknown] rosuvastatin [Crestor] 10 mg PO QHS 03/11/22 [History Last Taken Unknown] Allergy/AdvReac Type Severity Reaction Status Date / Time red dye Allergy Severe swelling Verified 03/11/22 11:21 carbidopa Allergy Unknown Verified 03/11/22 11:21 gabapentin Allergy Unknown Verified 03/11/22 11:21 latex Allergy Rash Verified 03/11/22 11:21 quetiapine fumarate Allergy Other Verified 03/11/22 11:21 [From Seroquel] topiramate [From Topamax] Allergy Hives Verified 03/11/22 11:21 tramadol HCl [From Ultram] Allergy Other Verified 03/11/22 11:21 amitriptyline AdvReac Vomiting Verified 03/11/22 11:21 aspirin AdvReac Upset Verified 03/11/22 11:21 Stomach codeine AdvReac Vomiting Verified 03/11/22 11:21 cyclobenzaprine HCl AdvReac Upset Verified 03/11/22 11:21 [From Flexeril] Stomach etodolac [Etodolac] AdvReac Vomiting Verified 03/11/22 11:21 hydrocodone bitartrate AdvReac Vomiting Verified 03/11/22 11:21 [From Vicodin] ketorolac tromethamine AdvReac Other Verified 03/11/22 11:21 [From Toradol] metformin AdvReac Diarrhea Verified 03/11/22 11:21 metoclopramide [From Reglan] AdvReac Other Verified 03/11/22 11:21 morphine AdvReac Vomiting Verified 03/11/22 11:21 naproxen [From Naprosyn] AdvReac Upset Verified 03/11/22 11:21 Stomach propoxyphene napsylate AdvReac Vomiting Verified 03/11/22 11:21 [From Darvocet-N 100] Family History Mother Malignant hyperthermia due to anesthesia Angina pectoris Arthritis Bowel disease Myocardial infarction Heart disease Hypertension High cholesterol CVA (cerebral vascular accident) Father Asthma Arthritis Myocardial infarction Heart disease High cholesterol Hypertension CVA (cerebral vascular accident) Leukemia Diabetes Grandmother Lung cancer Grandfather Diabetes Grandmother Diabetes Surgical History History of History of cholecystectomy History of orthopedic surgery History of partial hysterectomy History of total hysterectomy S/P knee surgery Social History Smoking Status: Current every day smoker tobacco type: cigarettes Tobacco: How many years used: 46 Electronic Cigarette Use: not used how long ago did patient quit smokin+ pack year smoking history (1.5-2 ppd x 32 years, 3 ppd x 14 years). second hand exposure: Yes quit status: considering quitting counseling given: provider counseling alcohol intake: never substance use type: does not use what type of physical activity do you participate in: walking and bicycling ROS ROS ED Constitutional Constitutional ED: Denies chills or fever(s) Eyes Eyes: Denies blurry vision or change in vision ENT ENT ED: Denies rhinorrhea or sore throat Cardiovascular Cardiovascular: Reports as per HPI Respiratory/Chest Respiratory/Chest: Denies cough, dyspnea or sputum Gastrointestinal Gastrointestinal: Denies abdominal pain, nausea or vomiting Genitourinary Genitourinary ED: Denies dysuria or hematuria Musculoskeletal Musculoskeletal: Denies arthralgias, back pain, myalgias or neck pain Integumentary Denies Abrasions or rash Neurologic Neurologic: Denies headache(s) or paresthesias Psychiatric Psychiatric: Reports anxiety and depression; Denies suicidal ideation or suicidal thoughts EXAM Physical Exam Const Vital Signs: 03/11/22 11:19 03/11/22 11:20 03/11/22 11:25 Temperature 97.1 F L Temperature Source Temporal Pulse Rate 91 121 H Respiratory Rate 19 H 18 Respiratory Effort Normal Non-Labored Respiratory Pattern Normal Blood Pressure 161/111 H 131/108 H Blood Pressure Mean 127 115 Pulse Ox 98 97 Oxygen Delivery Method Room Air Room Air Room Air 03/11/22 12:52 03/11/22 14:47 Temperature Temperature Source Pulse Rate 94 84 Respiratory Rate 16 18 Respiratory Effort Respiratory Pattern Blood Pressure 154/80 H 147/87 H Blood Pressure Mean 104 Pulse Ox 97 96 Oxygen Delivery Method Room Air Positive well developed General Appearance ED: well developed and NAD HEENT normocephalic and atraumatic Eyes PERRL and EOMs intact bilaterally Resp normal respiratory effort Effort and Inspection: respiratory distress Cardio regular rate and regular rhythm Neuro oriented x3 Sensorium / Orientation: awake and alert Psych Mood & Affect: depressed, anxious and tearful Skin no rashes or lesions noted Heart Score History: Slightly/Non-Suspicious ECG: Normal Age: </= 45 years Risk Factors: No Risk Factors Troponin: </= Normal Limit Score: 0 MDM MDM MDM Narrative Medical decision making narrative: Patient presenting with vague chest pain in the left upper chest wall. She states has been very depressed over her mom's about a week ago. She states that her family has been harassing her to come to the emergency room due to the chest pain. She does not have any cardiac history that she admits to. EKG is sinus rhythm with a ventricular to 100 bpm without sign of ischemic change or dysrhythmia. Chest x-ray my interpretation shows no acute cardiopulmonary process and radiologist agree. CBC and CMP are unremarkable. High-sensitivity troponin is less than 3. D-dimer age-adjusted within normal limits. I did have social work does speak with her because she appears to have a great deal of anxiety and depression. She did make sure that she had appropriate follow-up and the patient does have medication at home. Patient's work-up is ultimately negative and I think she is just having anxiety and depression. She has an appointment to follow-up with her therapist on Friday. Impression: 1. Depression 2. Anxiety 3. Chest pain noncardiac Lab Data Attestation: I reviewed the patient's lab results. Labs: Laboratory Results - last 24 hr 03/11/22 03/11/22 03/11/22 12:15 12:15 12:15 WBC 10.6 RBC 4.81 Hgb 15.1 H Hct 45.5 MCV 94.6 MCH 31.4 MCHC 33.2 RDW Std Deviation 45.0 H RDW Coeff of Salvador 13.0 Plt Count 332 MPV 9.5 Immature Gran % (Auto) 0.900 Neut % (Auto) 56.2 Lymph % (Auto) 34.4 Schleicher % (Auto) 6.4 Eos % (Auto) 1.6 Baso % (Auto) 0.5 Absolute Neuts (auto) 6.0 Absolute Lymphs (auto) 3.65 Nucleated RBC % 0 D-Dimer Quant (PE/DVT) 0.55 H* Sodium 142 Potassium 3.7 Chloride 113 H Carbon Dioxide 25.0 Anion Gap 4 L BUN 16 Creatinine 0.70 Estim Creat Clear Calc 76.57 Est GFR (MDRD) Af Amer 111 Est GFR (MDRD) Non-Af 92 BUN/Creatinine Ratio 22.9 H Glucose 180 H Calcium 8.5 Troponin I High Sens 03/11/22 12:15 WBC RBC Hgb Hct MCV MCH MCHC RDW Std Deviation RDW Coeff of Salvador Plt Count MPV Immature Gran % (Auto) Neut % (Auto) Lymph % (Auto) Schleicher % (Auto) Eos % (Auto) Baso % (Auto) Absolute Neuts (auto) Absolute Lymphs (auto) Nucleated RBC % D-Dimer Quant (PE/DVT) Sodium Potassium Chloride Carbon Dioxide Anion Gap BUN Creatinine Estim Creat Clear Calc Est GFR (MDRD) Af Amer Est GFR (MDRD) Non-Af BUN/Creatinine Ratio Glucose Calcium Troponin I High Sens < 3 L Radiography Diagnostic Testing: Clinical Impression(s) from Imaging Studies Chest X-Ray 03/11/22 13:05 IMPRESSION: No acute abnormality is seen. Electronically Signed: Clayton Grimm MD at 13:39 EDT , Discharge Plan Triage Chief Complaint: Chest Pain ED Provider: Raimundo Treviño Dx/Rx/DC Orders Instructions: ED Anxiety Reaction, ED Chest Pain, Noncardiac, ED Depression Prescriptions: No Action Airborne (ascorbate sodium) 333-1.7 mg tablet,chewable 4 tab PO DAILY RF: 0 cholecalciferol (vitamin D3) 25 mcg (1,000 unit) capsule 25 mcg PO DAILY RF: 0 tretinoin 0.05 % cream 1 applic topical QHS Qty: 20 RF: 0 alprazolam 2 MG tablet 2 mg PO TID PRN (Reason: Anxiety) RF: 0 rosuvastatin [Crestor] 10 mg tablet 10 mg PO QHS RF: 0 (DME) Altera Nebulizer System Misc See Rx Instructions .ROUTE .MEDSUPPLY Qty: 1 RF: 3 fluticasone propionate 50 mcg/actuation spray,suspension See Rx Instructions .Route PRN PRN (Reason: Nasal Congestion) Qty: 15.8 RF: 3 ipratropium-albuterol 0.5 mg-3 mg(2.5 mg base)/3 mL solution for nebulization 3 ml INHALATION Q8H PRN (Reason: shortness of breath or wheezing) Qty: 90 RF: 3 lisinopril 20 mg tablet 20 mg PO DAILY Qty: 90 RF: 3 omeprazole 40 mg capsule,delayed release(DR/EC) 40 mg PO DAILY Qty: 90 RF: 3 ondansetron 4 mg tablet,disintegrating 4 mg PO Q8H PRN PRN (Reason: Nausea) Qty: 30 RF: 1 (DME) OneTouch Verio test strips Strip See Rx Instructions .ROUTE .MEDSUPPLY Qty: 100 RF: 3 (DME) blood-glucose meter [OneTouch Verio Flex meter] Misc See Rx Instructions .ROUTE .MEDSUPPLY Qty: 1 RF: 0 (DME) Blood Glucose Test Strip See Rx Instructions .ROUTE .MEDSUPPLY Qty: 50 RF: 3 (DME) blood-glucose meter Misc See Rx Instructions .ROUTE .MEDSUPPLY Qty: 1 RF: 0 (DME) lancets 32 gauge misc See Rx Instructions .ROUTE .MEDSUPPLY Qty: 100 RF: 3 albuterol sulfate [Ventolin HFA] 90 mcg/actuation HFA aerosol inhaler 2 puff INHALATION Q6H PRN (Reason: shortness of breath or wheezing) Qty: 8 RF: 3 budesonide-formoterol [Symbicort] 160-4.5 mcg/actuation HFA aerosol inhaler 2 puff INHALATION BID Qty: 10.2 RF: 3 Primary Care Provider: Nola Rodriguez Referrals: Nola Rodriguez MD [Primary Care Provider] - Disposition Disposition: Home, Self Care Discharge Date/Time: 03/11/22 14:48
[2022-03-11 12:40] LABS: Anion Gap 4 (5-15); BUN 16 mg/dL (7-18); BUN/Creat Ratio 22.9 RATIO (10-20); Calcium,Total 8.5 mg/dL (8.5-10.1); Chloride 113 mmol/L (98-107); EST Glomerular Filtration Rate 92 mL/min (>60); Est Glom Filt Rate - Afr Amer 111 mL/min (>60); Estimated Creatinine Clearance 76.57 ml/min; Glucose 180 mg/dL (74-106); Potassium 3.7 mmol/L (3.5-5.1); Sodium Level 142 mmol/L (136-145)
[2022-03-11 12:47] LABS: D-Dimer Quantitative (DVT/PE) 0.55 FEU/ug/m (0.27-0.49)
[2022-03-11 12:52] VITALS: BP 154/80; PULSE 94; RESP 16; O2SAT 97
--- NOTE | 2022-03-11 13:05 | RAD_ITS ---
STUDY: X-RAY CHEST REASON FOR EXAM: Female, 56 years old. Chest pain TECHNIQUE: Single AP portable view of the chest. COMPARISON: Comparison is made with prior study 02/02/2020. FINDINGS: EKG electrodes are seen. The lungs are clear and expanded. There is no demonstrated pleural abnormality. Normal size heart. Normal mediastinum and caleb. Normal visualized pulmonary arteries. There is atherosclerotic calcification of the aortic arch with tortuosity. There are diffuse degenerative changes of the visualized thoracic spine. Normal visualized ribs, clavicles, and shoulders. There is no demonstrated abnormality of the visualized soft tissue structures of the upper abdomen. RAD/Chest 1 View (Portable) IMPRESSION: No acute abnormality is seen. Electronically Signed: Clayton Grimm MD at 13:39 EDT ,
--- NOTE | 2022-03-11 13:10 | CM.ED ---
Social Work Consult: Mental Health Referral source: Dr. Treviño Chief Complaint: Patient reports to be having a difficult time eating and sleeping enough since patient mother on February 28, 2022. Marital/Social History: . Has a boyfriend that is a long distance automobile or truck rental dispatcher. Patient reports to have multiple adult children. Living Situation: Lives alone in own home. Support/Resources: Active with [facility]. Patient follows with Ana Boswell for medication management and Robert for counseling. Patient also has a case planner, Marquita. Patient reports that next counseling appointment is later this week with Robert. History: Denies Education/Employment Status: Disability. Denies issues with comprehension or understanding. Mental Health Treatment/History: Anxiety, Depression. Patient reports to take prescribed medication to management mental health and to be taking medication appropriately. Patient reports history of inpatient psychiatric placement when patient attempted to end own life few years ago. Triggers/Stressors: Patient mother passing. Patient also reports to have lost patient brother on 2020. Coping Skills: I am trying. Substance Abuse Hx: Reports to smoke tobacco daily. Patient reports history of cocaine use but denies any current substance abuse outside of tobacco. Risk to Self/Others: Patient reports I have had thoughts when this director social welfare asked if patient has had any suicidal thoughts. Patient stated but I won't do anything. Patient stated to be living for my kids and to know that I will get better. Patient denied any suicidal plan or current attempts. Patient does report to have attempted to end patient life a few years ago by overdosing on sleeping pills. Patient reported history of self harming behavior by cutting own wrist but not currently self harming. Mental status Exam: A&Ox3 Appearance/General Behavior: Clean. Slumped. Mood/Affect: Depressed. Tearful. Communication Pattern: Responds to questions. Patient engaged in and initiated conversation with this director social welfare. Thought Process: Appropriate. Patient denies any paranoia. Patient denies visual or auditory hallucinations. Judgement: Good Insight: Good Assessment: Met with patient in room. Introduced self and director social welfare role. Patient agreeable to speak with this director social welfare. Patient tearful upon this director social welfare entering the room. Patient stated to be eating, sleeping and getting showered daily just not able to be normal. Patient stated to not eating as much or sleeping as much but able to do both. Patient reported that family was concerned about patient today due to chest pain and that is why I am here. Patient reported to have support from counseling services and to be waiting to meet with a bereavement support system through [facility] services (the services that patient mother used). Patient forward focused and able to collect self throughout assessment. Patient stated this just hurts in regards to patient mother passing. This director social welfare provided active listening and support for patient throughout assessment. Patient denied concerns on returning to home. Patient open to this director social welfare providing patient with local counseling resources, crisis hotline, [facility] Behavior[facility] Health services, and Bereavement services information through [facility]. This director social welfare provided patient with above mentioned resources. Collaborating with Dr. Treviño. This director social welfare updated Dr. Treviño on above information, Dr. Treviño agreeable with plan for patient to return to home. PLAN: Home, to follow up with established counseling services. No further services indicated or requested. Keyon BENAVIDES, ALEXEI
[2022-03-11 13:23] LABS: Troponin-I HS (w/2H Reflex) < 3 pg/mL (3.0-54.0)
[2022-03-11 14:47] VITALS: BP 147/87; PULSE 84; RESP 18; O2SAT 96
[2022-03-11 15:00] LABS: Reflex Troponin-HS? (from REC) Y
== END 2022-03-11 14:48 | disposition home or self-care (01) ==
PROVIDERS: Emergency Provider Student in an Organized Health Care Education/Training Program; PCP Internal Medicine; Visit Provider Student in an Organized Health Care Education/Training Program
DX: F32.A Depression, unspecified (principal); E11.40 Type 2 diabetes mellitus with diabetic neuropathy, unspecified; R07.89 Other chest pain; F41.9 Anxiety disorder, unspecified; F17.210 Nicotine dependence, cigarettes, uncomplicated; E78.5 Hyperlipidemia, unspecified; I10 Essential (primary) hypertension; J45.909 Unspecified asthma, uncomplicated; K21.9 Gastro-esophageal reflux disease without esophagitis; Z79.899 Other long term (current) drug therapy
CPT/HCPCS: 71045; 80048; 84484; 85025; 85379; 93005; 99284; A4216

== ENCOUNTER 2022-04-02 13:57 | Emergency (ER) | payer MEDICAID, SELFPAY ==
[2022-04-02 13:57] VITALS: BP 155/110; PULSE 99; RESP 16; TEMP 36.4; O2SAT 98; BMI 59.0
--- NOTE | 2022-04-02 14:51 | ED.VIS.BACK ---
HPI History of Present Illness Chief Complaint: Back Informant: patient Onset/Context/Timing Onset: Weeks (2) Context: Gradual Onset Worsened by: improves with Movement and - (sitting) Relieved by: Nothing Associated Symptoms Associated Symptoms: Radiation to Right Leg and Radiation to Left Leg; Negative for Numbness, Tingling, Abdominal Pain, Unable to Ambulate, Unable to Transfer, Urinary Retention, Urinary Incontinence, Constipation and Fecal Incontinence Narrative Narrative: Patient has chronic pain in her low back as well as sciatica down the left side, all of this is worse in the past 2 weeks and she is having some symptoms down into the right buttock as well. She states within this past 2 weeks, she has had 2 family members and it has been very stressful and depressing for her. In his period of time, she has not been taking care of herself very well and has basically stopped taking all of her back pain medications. These include but are not limited to meloxicam, Advil, and Toradol. She has had some nausea, no vomiting or rectal bleeding/melena. She denies any bowel or bladder dysfunction or recent injuries. She states that someone told her she may need surgery in her back. She has had an MRI in the past. [facility] Medical History Abnormal EKG Acute exacerbation of chronic low back pain Acute sinusitis, unspecified Anxiety and depression Asthma Candidiasis of mouth and esophagus Carpal tunnel syndrome Chronic headaches Chronic radicular lumbar pain Concussion Cough Diabetes Encounter for screening for malignant neoplasm of lung in current smoker with 30 pack year history or greater Fall GERD (gastroesophageal reflux disease) Grief Head injury High blood pressure HTN (hypertension) Hx of emotional problems Hyperlipidemia IBS (irritable bowel syndrome) Left otitis externa Muscle spasm Neuropathy Otitis media Panic attack Post concussion syndrome Seasonal allergies Type 2 diabetes mellitus URI (upper respiratory infection) Vision problems Home Medications alprazolam 2 mg PO TID PRN 03/24/19 [History Last Taken 08/22/20 04:30 2 MG] nebulizers #1 ea 09/06/20 [Rx Last Taken Unknown] fluticasone propionate 50 mcg/actuation nasal spray,suspension See Rx Instructions .ROUTE PRN PRN #15.8 ml 11/16/21 [Rx Last Taken Unknown] ipratropium 0.5 mg-albuterol 3 mg (2.5 mg base)/3 mL nebulization soln 3 ml INHALATION Q8H PRN #90 ml 11/16/21 [Rx Last Taken Unknown] lisinopril 20 mg tablet 20 mg PO DAILY #90 tab 11/16/21 [Rx Last Taken Unknown] omeprazole 40 mg capsule,delayed release 40 mg PO DAILY #90 cap 11/16/21 [Rx Last Taken Unknown] ondansetron 4 mg disintegrating tablet 4 mg PO Q8H PRN PRN #30 tab 11/16/21 [Rx Last Taken Unknown] blood sugar diagnostic #100 ea 11/27/21 [Rx Last Taken Unknown] blood-glucose meter #1 ea 11/27/21 [Rx Last Taken Unknown] blood sugar diagnostic #50 ea 11/28/21 [Rx Last Taken Unknown] blood-glucose meter #1 ea 11/28/21 [Rx Last Taken Unknown] lancets 32 gauge #100 ea 11/28/21 [Rx Last Taken Unknown] cholecalciferol (vitamin D3) 25 mcg (1,000 unit) capsule 25 mcg PO DAILY 12/07/21 [History Last Taken Unknown] mv-min-vit C-ascorb Zm-Fdn-Oce-herb #124 333 mg-1.7 mg chewable tablet 4 tab PO DAILY 12/07/21 [History Last Taken Unknown] Ventolin HFA 90 mcg/actuation aerosol inhaler 2 puff INHALATION Q6H PRN #8 g NS 01/28/22 [Rx Last Taken Unknown] tretinoin 0.05 % topical cream 1 applic TOPICAL QHS #20 g 02/15/22 [Rx Last Taken Unknown] budesonide-formoterol HFA 160 mcg-4.5 mcg/actuation aerosol inhaler 2 puff INHALATION BID #10.2 g 03/01/22 [Rx Last Taken Unknown] rosuvastatin [Crestor] 10 mg PO QHS 03/11/22 [History Last Taken Unknown] lamotrigine 200 mg tablet ea PO 03/12/22 [History Last Taken Unknown] melatonin 5 mg tablet 5 mg PO HS PRN #30 tab 03/12/22 [Rx Last Taken Unknown] paroxetine HCl 40 mg tablet 40 mg PO DAILY #30 tab 03/12/22 [Rx Last Taken Unknown] Allergy/AdvReac Type Severity Reaction Status Date / Time red dye Allergy Severe swelling Verified 04/02/22 14:37 carbidopa Allergy Unknown Verified 04/02/22 14:37 gabapentin Allergy Unknown Verified 04/02/22 14:37 latex Allergy Rash Verified 04/02/22 14:37 quetiapine fumarate Allergy Other Verified 04/02/22 14:37 [From Seroquel] topiramate [From Topamax] Allergy Hives Verified 04/02/22 14:37 tramadol HCl [From Ultram] Allergy Other Verified 04/02/22 14:37 amitriptyline AdvReac Vomiting Verified 04/02/22 14:37 aspirin AdvReac Upset Verified 04/02/22 14:37 Stomach codeine AdvReac Vomiting Verified 04/02/22 14:37 cyclobenzaprine HCl AdvReac Upset Verified 04/02/22 14:37 [From Flexeril] Stomach etodolac [Etodolac] AdvReac Vomiting Verified 04/02/22 14:37 hydrocodone bitartrate AdvReac Vomiting Verified 04/02/22 14:37 [From Vicodin] ketorolac tromethamine AdvReac Other Verified 04/02/22 14:37 [From Toradol] metformin AdvReac Diarrhea Verified 04/02/22 14:37 metoclopramide [From Reglan] AdvReac Other Verified 04/02/22 14:37 morphine AdvReac Vomiting Verified 04/02/22 14:37 naproxen [From Naprosyn] AdvReac Upset Verified 04/02/22 14:37 Stomach propoxyphene napsylate AdvReac Vomiting Verified 04/02/22 14:37 [From Darvocet-N 100] Family History Mother Malignant hyperthermia due to anesthesia Angina pectoris Arthritis Bowel disease Myocardial infarction Heart disease Hypertension High cholesterol CVA (cerebral vascular accident) Father Asthma Arthritis Myocardial infarction Heart disease High cholesterol Hypertension CVA (cerebral vascular accident) Leukemia Diabetes Grandmother Lung cancer Grandfather Diabetes Grandmother Diabetes Surgical History History of History of cholecystectomy History of orthopedic surgery History of partial hysterectomy History of total hysterectomy S/P knee surgery Social History Smoking Status: Current every day smoker tobacco type: cigarettes Tobacco: How many years used: 46 Electronic Cigarette Use: not used how long ago did patient quit smokin+ pack year smoking history (1.5-2 ppd x 32 years, 3 ppd x 14 years). second hand exposure: Yes quit status: considering quitting counseling given: provider counseling alcohol intake: never substance use type: does not use what type of physical activity do you participate in: walking and bicycling ROS ROS ED Constitutional Constitutional ED: Denies chills or fever(s) Gastrointestinal Gastrointestinal: Denies abdominal pain, constipation, fecal incontinence, nausea or vomiting Genitourinary Genitourinary ED: Reports other Details: no urinary retention ; Denies abdominal discomfort or urinary incontinence Musculoskeletal Musculoskeletal: Reports as per HPI and back pain; Denies neck pain Integumentary Denies rash or wounds Neurologic Neurologic: Denies headache(s), paresthesias or weakness EXAM Physical Exam Const Vital Signs: 04/02/22 13:57 04/02/22 15:36 Temperature 97.6 F L Temperature Source Temporal Pulse Rate 99 78 Respiratory Rate 16 16 Blood Pressure 155/110 H Blood Pressure Mean 125 Pulse Ox 98 97 Oxygen Delivery Method Room Air Positive well nourished and well developed General Appearance ED: well developed and NAD HEENT Negative for trauma or tenderness Eyes PERRL and EOMs intact bilaterally Neck full ROM and supple GI normal to inspection, nondistended, normoactive bowel sounds, soft to palpation and non-tender Back/Spine normal to inspection Lumbar Spine / Lower Back: ROM limited, pain with ROM, paraspinal muscle tenderness and straight leg raise positive - left at 40 degrees Extremity normal to inspection, full ROM and no pedal edema Neuro oriented x3 and no sensory deficits noted Sensorium / Orientation: alert Motor Exam: strength 5/5 throughout and clonus absent Deep Tendon Reflexes: Rt Patellar (L4): 1+, Lt Patellar (L4): 1+, Rt Ankle (S1): 1+ and Lt Ankle (S1): 1+ Deep Tendon Reflexes Back: Rt Patellar (L4): 1+, Lt Patellar (L4): 1+, Rt Ankle (S1): 1+ and Lt Ankle (S1): 1+ Plantar Reflex: Downgoing: bilateral Psych mental status grossly normal and thought process normal Skin no rashes or lesions noted and no wounds MDM MDM MDM Narrative Medical decision making narrative: Patient was requesting something for pain here. However, she states she does not want a prescription for anything at home because she does have medications at home that are nonnarcotic, and she plans on restarting the mall. I think that is a good idea. She asked if stress and anxiety could be causing her increase in her chronic pain. I told her the answer is yes, but I think the better reason for her exacerbation was that she stopped taking all of her medications that she uses to keep her pain at bay and she was in agreement with that. She is not suicidal. She was given an IM dose of narcotic pain medication here and discharged with her significant other in stable condition, who added that she should stop carrying laundry up and down the basement steps, and doing so much with her back at home which I agree with as well. In addition, after discussing more with her, she has not seen one of the spine specialists here in [place]. She is already a patient of [facility] so she was referred to Dr. Fuchs. Discharge Plan Triage Chief Complaint: Back ED Provider: Jeremiah Ga Dx/Rx/DC Orders Clinical Impression: Acute exacerbation of chronic low back pain, Left sided sciatica Instructions: ED Sciatica Prescriptions: No Action Airborne (ascorbate sodium) 333-1.7 mg tablet,chewable 4 tab PO DAILY RF: 0 cholecalciferol (vitamin D3) 25 mcg (1,000 unit) capsule 25 mcg PO DAILY RF: 0 tretinoin 0.05 % cream 1 applic topical QHS Qty: 20 RF: 0 lamotrigine 200 mg tablet PO RF: 0 paroxetine HCl 40 mg tablet 40 mg PO DAILY Qty: 30 RF: 0 melatonin 5 mg tablet 5 mg PO HS PRN (Reason: sleep) Qty: 30 RF: 1 alprazolam 2 MG tablet 2 mg PO TID PRN (Reason: Anxiety) RF: 0 rosuvastatin [Crestor] 10 mg tablet 10 mg PO QHS RF: 0 (DME) Altera Nebulizer System Misc See Rx Instructions .ROUTE .MEDSUPPLY Qty: 1 RF: 3 fluticasone propionate 50 mcg/actuation spray,suspension See Rx Instructions .Route PRN PRN (Reason: Nasal Congestion) Qty: 15.8 RF: 3 ipratropium-albuterol 0.5 mg-3 mg(2.5 mg base)/3 mL solution for nebulization 3 ml INHALATION Q8H PRN (Reason: shortness of breath or wheezing) Qty: 90 RF: 3 lisinopril 20 mg tablet 20 mg PO DAILY Qty: 90 RF: 3 omeprazole 40 mg capsule,delayed release(DR/EC) 40 mg PO DAILY Qty: 90 RF: 3 ondansetron 4 mg tablet,disintegrating 4 mg PO Q8H PRN PRN (Reason: Nausea) Qty: 30 RF: 1 (DME) OneTouch Verio test strips Strip See Rx Instructions .ROUTE .MEDSUPPLY Qty: 100 RF: 3 (DME) blood-glucose meter [OneTouch Verio Flex meter] Misc See Rx Instructions .ROUTE .MEDSUPPLY Qty: 1 RF: 0 (DME) Blood Glucose Test Strip See Rx Instructions .ROUTE .MEDSUPPLY Qty: 50 RF: 3 (DME) blood-glucose meter Misc See Rx Instructions .ROUTE .MEDSUPPLY Qty: 1 RF: 0 (DME) lancets 32 gauge misc See Rx Instructions .ROUTE .MEDSUPPLY Qty: 100 RF: 3 albuterol sulfate [Ventolin HFA] 90 mcg/actuation HFA aerosol inhaler 2 puff INHALATION Q6H PRN (Reason: shortness of breath or wheezing) Qty: 8 RF: 3 budesonide-formoterol [Symbicort] 160-4.5 mcg/actuation HFA aerosol inhaler 2 puff INHALATION BID Qty: 10.2 RF: 3 Primary Care Provider: Nola Rodriguez Referrals: Nola Rodriguez MD [Primary Care Provider] - Garcia Fuchs DO [STAFF PHYSICIAN] - Disposition Disposition: Home, Self Care Discharge Date/Time: 04/02/22 15:55
[2022-04-02] MEDS: Ondansetron ODT 4 MG Tablet 8 MG PO (15:03)
[2022-04-02] MEDS: HYDROmorphone 0.5 MG/0.5 ML SYRINGE IM (15:05)
[2022-04-02 15:36] VITALS: PULSE 78; RESP 16; O2SAT 97
== END 2022-04-02 15:55 | disposition home or self-care (01) ==
PROVIDERS: Emergency Provider Emergency Medicine; PCP Internal Medicine; Visit Provider Emergency Medicine
DX: M54.42 Lumbago with sciatica, left side (principal); E11.40 Type 2 diabetes mellitus with diabetic neuropathy, unspecified; F17.210 Nicotine dependence, cigarettes, uncomplicated; E78.5 Hyperlipidemia, unspecified; I10 Essential (primary) hypertension; Z79.899 Other long term (current) drug therapy; K21.9 Gastro-esophageal reflux disease without esophagitis; F41.0 Panic disorder [episodic paroxysmal anxiety]; F32.A Depression, unspecified; G89.29 Other chronic pain
CPT/HCPCS: 96374; 99283

== ENCOUNTER 2022-05-01 13:38 | Emergency (ER) | payer MEDICAID, SELFPAY ==
[2022-05-01 13:39] VITALS: BP 150/83; PULSE 95; RESP 18; TEMP 37.1; O2SAT 98; BMI 25.0
--- NOTE | 2022-05-01 14:52 | ED.VIS.BACK ---
HPI History of Present Illness Chief Complaint: Back Informant: patient Onset/Context/Timing Onset: Month(s) (2) Context: Gradual Onset Chronic pain exacerbated by: Fall Injury: fall Timing: Continuous Quality: Aching Location: Lumbar and Buttock Worsened by: improves with Movement Relieved by: Nothing Associated Symptoms Associated Symptoms: Radiation to Right Leg and Radiation to Left Leg; Negative for Numbness, Tingling, Fever, Abdominal Pain, Dysuria, Unable to Ambulate, Unable to Transfer, Urinary Retention, Urinary Incontinence, Constipation and Fecal Incontinence Narrative Narrative: Patient presents with back pain that has been constant for the last 2 months. Patient states that she has been falling more frequently at home. Patient states her pain is over her low back and into her buttocks. Patient states it radiates down both legs. Patient denies any paresthesias or weakness. Patient denies any bowel or bladder changes. Patient denies any saddle anesthesia. Patient states she is scheduled for an MRI but has been having difficulty obtaining this due to insurance reasons. [facility] Medical History Abnormal EKG Acute exacerbation of chronic low back pain Acute sinusitis, unspecified Anxiety and depression Asthma Candidiasis of mouth and esophagus Carpal tunnel syndrome Chronic back pain Chronic headaches Chronic radicular lumbar pain Concussion Cough Diabetes Encounter for screening for malignant neoplasm of lung in current smoker with 30 pack year history or greater Fall GERD (gastroesophageal reflux disease) Grief Head injury High blood pressure HTN (hypertension) Hx of emotional problems Hyperlipidemia IBS (irritable bowel syndrome) Left otitis externa Muscle spasm Neuropathy Otitis media Panic attack Post concussion syndrome Seasonal allergies Type 2 diabetes mellitus URI (upper respiratory infection) Vision problems Home Medications alprazolam 2 mg PO TID PRN 03/24/19 [History Last Taken 08/22/20 04:30 2 MG] nebulizers #1 ea 09/06/20 [Rx Last Taken Unknown] fluticasone propionate 50 mcg/actuation nasal spray,suspension See Rx Instructions .ROUTE PRN PRN #15.8 ml 11/16/21 [Rx Last Taken Unknown] ipratropium 0.5 mg-albuterol 3 mg (2.5 mg base)/3 mL nebulization soln 3 ml INHALATION Q8H PRN #90 ml 11/16/21 [Rx Last Taken Unknown] lisinopril 20 mg tablet 20 mg PO DAILY #90 tab 11/16/21 [Rx Last Taken Unknown] omeprazole 40 mg capsule,delayed release 40 mg PO DAILY #90 cap 11/16/21 [Rx Last Taken Unknown] blood sugar diagnostic #100 ea 11/27/21 [Rx Last Taken Unknown] blood-glucose meter #1 ea 11/27/21 [Rx Last Taken Unknown] blood sugar diagnostic #50 ea 11/28/21 [Rx Last Taken Unknown] blood-glucose meter #1 ea 11/28/21 [Rx Last Taken Unknown] lancets 32 gauge #100 ea 11/28/21 [Rx Last Taken Unknown] cholecalciferol (vitamin D3) 25 mcg (1,000 unit) capsule 25 mcg PO DAILY 12/07/21 [History Last Taken Unknown] mv-min-vit C-ascorb Uc-Cxe-Hxg-herb #124 333 mg-1.7 mg chewable tablet 4 tab PO DAILY 12/07/21 [History Last Taken Unknown] Ventolin HFA 90 mcg/actuation aerosol inhaler 2 puff INHALATION Q6H PRN #8 g NS 01/28/22 [Rx Last Taken Unknown] tretinoin 0.05 % topical cream 1 applic TOPICAL QHS #20 g 02/15/22 [Rx Last Taken Unknown] budesonide-formoterol HFA 160 mcg-4.5 mcg/actuation aerosol inhaler 2 puff INHALATION BID #10.2 g 03/01/22 [Rx Last Taken Unknown] rosuvastatin [Crestor] 10 mg PO QHS 03/11/22 [History Last Taken Unknown] lamotrigine 200 mg tablet ea PO 03/12/22 [History Last Taken Unknown] melatonin 5 mg tablet 5 mg PO HS PRN #30 tab 03/12/22 [Rx Last Taken Unknown] paroxetine HCl 40 mg tablet 40 mg PO DAILY #30 tab 03/12/22 [Rx Last Taken Unknown] baclofen 10 mg tablet 10 mg PO BID PRN #60 tab 04/03/22 [Rx Last Taken Unknown] methylprednisolone 4 mg tablets in a dose pack 4 mg PO DAILY #21 tab 04/03/22 [Rx Last Taken Unknown] ondansetron 4 mg disintegrating tablet 4 mg PO Q8H PRN PRN #30 tab 04/03/22 [Rx Last Taken Unknown] Allergy/AdvReac Type Severity Reaction Status Date / Time red dye Allergy Severe swelling Verified 05/01/22 13:42 carbidopa Allergy Unknown Verified 05/01/22 13:42 gabapentin Allergy Unknown Verified 05/01/22 13:42 latex Allergy Rash Verified 05/01/22 13:42 quetiapine fumarate Allergy Other Verified 05/01/22 13:42 [From Seroquel] topiramate [From Topamax] Allergy Hives Verified 05/01/22 13:42 tramadol HCl [From Ultram] Allergy Other Verified 05/01/22 13:42 amitriptyline AdvReac Vomiting Verified 05/01/22 13:42 aspirin AdvReac Upset Verified 05/01/22 13:42 Stomach codeine AdvReac Vomiting Verified 05/01/22 13:42 cyclobenzaprine HCl AdvReac Upset Verified 05/01/22 13:42 [From Flexeril] Stomach etodolac [Etodolac] AdvReac Vomiting Verified 05/01/22 13:42 hydrocodone bitartrate AdvReac Vomiting Verified 05/01/22 13:42 [From Vicodin] ketorolac tromethamine AdvReac Other Verified 05/01/22 13:42 [From Toradol] metformin AdvReac Diarrhea Verified 05/01/22 13:42 metoclopramide [From Reglan] AdvReac Other Verified 05/01/22 13:42 morphine AdvReac Vomiting Verified 05/01/22 13:42 naproxen [From Naprosyn] AdvReac Upset Verified 05/01/22 13:42 Stomach propoxyphene napsylate AdvReac Vomiting Verified 05/01/22 13:42 [From Darvocet-N 100] Family History Mother Malignant hyperthermia due to anesthesia Angina pectoris Arthritis Bowel disease Myocardial infarction Heart disease Hypertension High cholesterol CVA (cerebral vascular accident) Father Asthma Arthritis Myocardial infarction Heart disease High cholesterol Hypertension CVA (cerebral vascular accident) Leukemia Diabetes Grandmother Lung cancer Grandfather Diabetes Grandmother Diabetes Surgical History History of History of cholecystectomy History of orthopedic surgery History of partial hysterectomy History of total hysterectomy S/P knee surgery Social History Smoking Status: Current every day smoker tobacco type: cigarettes Tobacco: How many years used: 46 Electronic Cigarette Use: not used how long ago did patient quit smokin+ pack year smoking history (1.5-2 ppd x 32 years, 3 ppd x 14 years). second hand exposure: Yes quit status: considering quitting counseling given: provider counseling alcohol intake: never substance use type: does not use what type of physical activity do you participate in: walking and bicycling ROS ROS ED Constitutional Constitutional ED: Denies chills or fever(s) Eyes Eyes: Denies blurry vision or change in vision ENT ENT ED: Denies rhinorrhea or sore throat Cardiovascular Cardiovascular: Denies chest pain or palpitations Respiratory/Chest Respiratory/Chest: Denies cough or dyspnea Gastrointestinal Gastrointestinal: Reports nausea and vomiting Genitourinary Genitourinary ED: Denies dysuria or hematuria Musculoskeletal Musculoskeletal: Reports back pain; Denies neck pain Integumentary Denies abscess or rash Neurologic Neurologic: Denies headache(s) or weakness Allergic/Immunologic Allergic/Immunologic ED: Denies mouth swelling or urticaria EXAM Physical Exam Const Vital Signs: 05/01/22 13:39 05/01/22 16:11 Temperature 98.8 F Temperature Source Temporal Pulse Rate 95 76 Respiratory Rate 18 16 Blood Pressure 150/83 H 127/93 H Blood Pressure Mean 105 Pulse Ox 98 94 Oxygen Delivery Method Room Air Positive well nourished and well developed General Appearance ED: well developed and NAD HEENT Reports moist mucous membranes Neck supple and no JVD Back/Spine Back/Spine Narrative: There is tenderness over the sacrum and lower lumbar spine. There is no bony crepitance or step-off. There is some mild ecchymosis over the sacrum. Range of motion was slightly limited in all motions of the lumbar spine secondary to pain. Straight leg raises were negative bilaterally. Lumbar Spine / Lower Back: ROM limited and straight leg raise negative bilaterally Neuro oriented x3 and no sensory deficits noted Sensorium / Orientation: alert Motor Exam: strength 5/5 throughout Psych mental status grossly normal MDM MDM MDM Narrative Medical decision making narrative: Patient was given an injection of Dilaudid here. Patient was given a dose of Zofran ODT. X-rays of the lumbar spine were obtained. There are 3 views. There are degenerative changes. There is no acute fracture. There is grade 1 anterolisthesis of L4 on L5. Radiologist also interpreted the x-ray and agrees. Because of the patient's allergies to nearly all analgesic medications, I was unable to prescribe her anything other than Tylenol for her pain. Patient was instructed to take Tylenol as needed. Patient was instructed to follow-up with her primary care physician for further evaluation. Patient was instructed to also follow-up with her spine surgeon as scheduled. Patient understood and was agreeable with the plan. All questions were answered. Radiography Diagnostic Testing: Clinical Impression(s) from Imaging Studies Lumbar Spine X-Ray 05/01/22 15:22 IMPRESSION: Degenerative changes of the spine, as detailed above. Grade 1 anterolisthesis of L4 on L5. Electronically Signed: Clayton Grimm MD at 15:45 EDT , Discharge Plan Triage Chief Complaint: Back ED Provider: Kevin Traore Dx/Rx/DC Orders Clinical Impression: Acute myofascial strain of lumbosacral region, Chronic radicular lumbar pain Instructions: ED Back Pain (Acute or Chronic) Prescriptions: No Action Airborne (ascorbate sodium) 333-1.7 mg tablet,chewable 4 tab PO DAILY RF: 0 cholecalciferol (vitamin D3) 25 mcg (1,000 unit) capsule 25 mcg PO DAILY RF: 0 tretinoin 0.05 % cream 1 applic topical QHS Qty: 20 RF: 0 lamotrigine 200 mg tablet PO RF: 0 paroxetine HCl 40 mg tablet 40 mg PO DAILY Qty: 30 RF: 0 melatonin 5 mg tablet 5 mg PO HS PRN (Reason: sleep) Qty: 30 RF: 1 alprazolam 2 MG tablet 2 mg PO TID PRN (Reason: Anxiety) RF: 0 rosuvastatin [Crestor] 10 mg tablet 10 mg PO QHS RF: 0 (DME) Altera Nebulizer System Misc See Rx Instructions .ROUTE .MEDSUPPLY Qty: 1 RF: 3 fluticasone propionate 50 mcg/actuation spray,suspension See Rx Instructions .Route PRN PRN (Reason: Nasal Congestion) Qty: 15.8 RF: 3 ipratropium-albuterol 0.5 mg-3 mg(2.5 mg base)/3 mL solution for nebulization 3 ml INHALATION Q8H PRN (Reason: shortness of breath or wheezing) Qty: 90 RF: 3 lisinopril 20 mg tablet 20 mg PO DAILY Qty: 90 RF: 3 omeprazole 40 mg capsule,delayed release(DR/EC) 40 mg PO DAILY Qty: 90 RF: 3 (DME) OneTouch Verio test strips Strip See Rx Instructions .ROUTE .MEDSUPPLY Qty: 100 RF: 3 (DME) blood-glucose meter [OneTouch Verio Flex meter] Misc See Rx Instructions .ROUTE .MEDSUPPLY Qty: 1 RF: 0 (DME) Blood Glucose Test Strip See Rx Instructions .ROUTE .MEDSUPPLY Qty: 50 RF: 3 (DME) blood-glucose meter Misc See Rx Instructions .ROUTE .MEDSUPPLY Qty: 1 RF: 0 (DME) lancets 32 gauge misc See Rx Instructions .ROUTE .MEDSUPPLY Qty: 100 RF: 3 albuterol sulfate [Ventolin HFA] 90 mcg/actuation HFA aerosol inhaler 2 puff INHALATION Q6H PRN (Reason: shortness of breath or wheezing) Qty: 8 RF: 3 budesonide-formoterol [Symbicort] 160-4.5 mcg/actuation HFA aerosol inhaler 2 puff INHALATION BID Qty: 10.2 RF: 3 methylprednisolone [Medrol (Jorge)] 4 mg tablets,dose pack 4 mg PO DAILY Qty: 21 RF: 0 baclofen 10 mg tablet 10 mg PO BID PRN (Reason: muscle spasm) Qty: 60 RF: 2 ondansetron 4 mg tablet,disintegrating 4 mg PO Q8H PRN PRN (Reason: Nausea) Qty: 30 RF: 1 Primary Care Provider: Nola Rodriguez Referrals: Nola Rodriguez MD [Primary Care Provider] - 3-5 Days Disposition Disposition: Home, Self Care Discharge Date/Time: 05/01/22 16:20
[2022-05-01] MEDS: HYDROmorphone 0.5 MG/0.5 ML SYRINGE IM (15:11)
[2022-05-01] MEDS: Ondansetron ODT 4 MG Tablet PO (15:11)
--- NOTE | 2022-05-01 15:22 | RAD_ITS ---
STUDY: X-RAY - LUMBAR SPINE REASON FOR EXAM: Female, 56 years old. Injury/Pain TECHNIQUE: 3 view(s) of the lumbar spine were obtained. COMPARISON: None FINDINGS: Normal lumbar lordosis. There is no substantial scoliosis. Grade 1 anterolisthesis of L4 on L5 most likely secondary to the facet joint osteoarthritis. There is endplate spondylosis of the lumbar vertebrae. There is multi-level degenerative disc disease with multi-level disc space narrowing. There is no demonstrated spondylolysis of the pars interarticulares. There is atherosclerotic calcification of the abdominal aorta without a demonstrated aneurysm. RAD/Lumbar Spine 2 or 3 Views IMPRESSION: Degenerative changes of the spine, as detailed above. Grade 1 anterolisthesis of L4 on L5. Electronically Signed: Clayton Grimm MD at 15:45 EDT ,
[2022-05-01 16:11] VITALS: BP 127/93; PULSE 76; RESP 16; O2SAT 94
== END 2022-05-01 16:20 | disposition home or self-care (01) ==
PROVIDERS: Emergency Provider Emergency Medicine; PCP Internal Medicine; Visit Provider Emergency Medicine
DX: S39.012A Strain of muscle, fascia and tendon of lower back, initial encounter (principal); M47.26 Other spondylosis with radiculopathy, lumbar region; W19.XXXA Unspecified fall, initial encounter; E11.40 Type 2 diabetes mellitus with diabetic neuropathy, unspecified; I10 Essential (primary) hypertension; G89.29 Other chronic pain; E78.5 Hyperlipidemia, unspecified; J45.909 Unspecified asthma, uncomplicated; K21.9 Gastro-esophageal reflux disease without esophagitis; F32.A Depression, unspecified; F41.9 Anxiety disorder, unspecified; F17.210 Nicotine dependence, cigarettes, uncomplicated; Z79.899 Other long term (current) drug therapy; Z91.81 History of falling
CPT/HCPCS: 72100; 96372; 99282

== ENCOUNTER 2022-05-02 11:14 | Emergency (ER) | payer MEDICAID, SELFPAY ==
[2022-05-02 11:15] VITALS: BP 164/91; PULSE 95; RESP 14; TEMP 36.6; O2SAT 97; BMI 30.4
[2022-05-02] MEDS: Ondansetron ODT 4 MG Tablet 8 MG PO (12:42)
[2022-05-02] MEDS: HYDROmorphone 1 MG/ML Syringe IM (12:42)
--- NOTE | 2022-05-02 12:43 | ED.VIS.BACK ---
HPI History of Present Illness Chief Complaint: Back Informant: patient Narrative Narrative: Chronic right-sided sciatica for the past year. Patient on gabapentin and lidocaine patches Toradol Tylenol or Advil at home. Reports 2 weeks ago referred to surgery Dr. Fuchs has a pending outpatient MRI. Reports had a fall 4 days ago due to her legs giving out with a bruise on her right lower back. She is seen in the ED yesterday with x-rays that were negative. She is not prescribed anything stronger states she does not like taking stronger pain medicines. She was noted to be treated with Dilaudid 0.5 mg and Zofran yesterday with concerns of nausea from the medications. She is able go home however states the medicines did not help. She called her surgeon's office and her PCP today was referred back to the ED. She has appoint with her PCP tomorrow. There has been no new injuries. Prior similar symptoms: Yes PFSH [facility] Medical History Abnormal EKG Acute exacerbation of chronic low back pain Acute sinusitis, unspecified Anxiety and depression Asthma Candidiasis of mouth and esophagus Carpal tunnel syndrome Chronic back pain Chronic headaches Chronic radicular lumbar pain Concussion Cough Diabetes Encounter for screening for malignant neoplasm of lung in current smoker with 30 pack year history or greater Fall GERD (gastroesophageal reflux disease) Grief Head injury High blood pressure HTN (hypertension) Hx of emotional problems Hyperlipidemia IBS (irritable bowel syndrome) Left otitis externa Muscle spasm Neuropathy Otitis media Panic attack Post concussion syndrome Seasonal allergies Type 2 diabetes mellitus URI (upper respiratory infection) Vision problems Home Medications alprazolam 2 mg PO TID PRN 03/24/19 [History Last Taken 08/22/20 04:30 2 MG] nebulizers #1 ea 09/06/20 [Rx Last Taken Unknown] fluticasone propionate 50 mcg/actuation nasal spray,suspension See Rx Instructions .ROUTE PRN PRN #15.8 ml 11/16/21 [Rx Last Taken Unknown] ipratropium 0.5 mg-albuterol 3 mg (2.5 mg base)/3 mL nebulization soln 3 ml INHALATION Q8H PRN #90 ml 11/16/21 [Rx Last Taken Unknown] lisinopril 20 mg tablet 20 mg PO DAILY #90 tab 12/17/21 [Rx Last Taken Unknown] omeprazole 40 mg capsule,delayed release 40 mg PO DAILY #90 cap 11/16/21 [Rx Last Taken Unknown] blood sugar diagnostic #100 ea 11/27/21 [Rx Last Taken Unknown] blood-glucose meter #1 ea 11/27/21 [Rx Last Taken Unknown] blood sugar diagnostic #50 ea 11/28/21 [Rx Last Taken Unknown] blood-glucose meter #1 ea 11/28/21 [Rx Last Taken Unknown] lancets 32 gauge #100 ea 11/28/21 [Rx Last Taken Unknown] cholecalciferol (vitamin D3) 25 mcg (1,000 unit) capsule 25 mcg PO DAILY 12/07/21 [History Last Taken Unknown] mv-min-vit C-ascorb Vt-Hmu-Vmb-herb #124 333 mg-1.7 mg chewable tablet 4 tab PO DAILY 12/07/21 [History Last Taken Unknown] Ventolin HFA 90 mcg/actuation aerosol inhaler 2 puff INHALATION Q6H PRN #8 g NS 01/28/22 [Rx Last Taken Unknown] tretinoin 0.05 % topical cream 1 applic TOPICAL QHS #20 g 02/15/22 [Rx Last Taken Unknown] budesonide-formoterol HFA 160 mcg-4.5 mcg/actuation aerosol inhaler 2 puff INHALATION BID #10.2 g 03/01/22 [Rx Last Taken Unknown] rosuvastatin [Crestor] 10 mg PO QHS 03/11/22 [History Last Taken Unknown] lamotrigine 200 mg tablet ea PO 03/12/22 [History Last Taken Unknown] melatonin 5 mg tablet 5 mg PO HS PRN #30 tab 03/12/22 [Rx Last Taken Unknown] paroxetine HCl 40 mg tablet 40 mg PO DAILY #30 tab 03/12/22 [Rx Last Taken Unknown] baclofen 10 mg tablet 10 mg PO BID PRN #60 tab 04/03/22 [Rx Last Taken Unknown] methylprednisolone 4 mg tablets in a dose pack 4 mg PO DAILY #21 tab 04/03/22 [Rx Last Taken Unknown] ondansetron 4 mg disintegrating tablet 4 mg PO Q8H PRN PRN #30 tab 04/03/22 [Rx Last Taken Unknown] Allergy/AdvReac Type Severity Reaction Status Date / Time red dye Allergy Severe swelling Verified 05/02/22 11:17 carbidopa Allergy Unknown Verified 05/02/22 11:17 gabapentin Allergy Unknown Verified 05/02/22 11:17 latex Allergy Rash Verified 05/02/22 11:17 quetiapine fumarate Allergy Other Verified 05/02/22 11:17 [From Seroquel] topiramate [From Topamax] Allergy Hives Verified 05/02/22 11:17 tramadol HCl [From Ultram] Allergy Other Verified 05/02/22 11:17 amitriptyline AdvReac Vomiting Verified 05/02/22 11:17 aspirin AdvReac Upset Verified 05/02/22 11:17 Stomach codeine AdvReac Vomiting Verified 05/02/22 11:17 cyclobenzaprine HCl AdvReac Upset Verified 05/02/22 11:17 [From Flexeril] Stomach etodolac [Etodolac] AdvReac Vomiting Verified 05/02/22 11:17 hydrocodone bitartrate AdvReac Vomiting Verified 05/02/22 11:17 [From Vicodin] ketorolac tromethamine AdvReac Other Verified 05/02/22 11:17 [From Toradol] metformin AdvReac Diarrhea Verified 05/02/22 11:17 metoclopramide [From Reglan] AdvReac Other Verified 05/02/22 11:17 morphine AdvReac Vomiting Verified 05/02/22 11:17 naproxen [From Naprosyn] AdvReac Upset Verified 05/02/22 11:17 Stomach propoxyphene napsylate AdvReac Vomiting Verified 05/02/22 11:17 [From Darvocet-N 100] Family History Mother Malignant hyperthermia due to anesthesia Angina pectoris Arthritis Bowel disease Myocardial infarction Heart disease Hypertension High cholesterol CVA (cerebral vascular accident) Father Asthma Arthritis Myocardial infarction Heart disease High cholesterol Hypertension CVA (cerebral vascular accident) Leukemia Diabetes Grandmother Lung cancer Grandfather Diabetes Grandmother Diabetes Surgical History History of History of cholecystectomy History of orthopedic surgery History of partial hysterectomy History of total hysterectomy S/P knee surgery Social History Smoking Status: Current every day smoker tobacco type: cigarettes Tobacco: How many years used: 46 Electronic Cigarette Use: not used how long ago did patient quit smokin+ pack year smoking history (1.5-2 ppd x 32 years, 3 ppd x 14 years). second hand exposure: Yes quit status: considering quitting counseling given: provider counseling alcohol intake: never substance use type: does not use what type of physical activity do you participate in: walking and bicycling ROS ROS ED Constitutional Constitutional ED: Denies chills, fever(s) or sweats Eyes Eyes: Denies change in vision ENT ENT ED: Denies dysphagia or sore throat Cardiovascular Cardiovascular: Denies chest pain, leg edema, palpitations or racing heartbeat Respiratory/Chest Respiratory/Chest: Denies cough, dyspnea or dyspnea on exertion Gastrointestinal Gastrointestinal: Denies abdominal pain, diarrhea, nausea or vomiting Genitourinary Genitourinary ED: Denies dysuria, hematuria or urinary frequency Musculoskeletal Musculoskeletal: Reports back pain; Denies extremity pain or neck pain Integumentary Denies rash or wounds Neurologic Neurologic: Denies headache(s), paresthesias or weakness EXAM Physical Exam Const Vital Signs: 05/02/22 11:15 Temperature 97.8 F Temperature Source Temporal Pulse Rate 95 Respiratory Rate 14 Blood Pressure 164/91 H Blood Pressure Mean 115 Pulse Ox 97 Oxygen Delivery Method Room Air Positive well nourished and well developed Constitutional Narrative: Comfortable laying on her left side. General Appearance ED: well developed HEENT Reports moist mucous membranes normocephalic and atraumatic Eyes PERRL, EOMs intact bilaterally and conjunctivae normal General Eye ED: Yes normal appearance of both eyes Neck no lymphadenopathy and supple General: Negative for tenderness Chest Wall Chest: Negative for tenderness Resp normal respiratory effort and normal air movement Effort and Inspection: symmetric chest movement; Negative for respiratory distress Cardio regular rate, regular rhythm and no murmurs Peripheral Pulses: pulses 2+ throughout GI normal to inspection, nondistended, normoactive bowel sounds and non-tender Palpation: Negative for guarding or rebound tenderness present Back/Spine no CVA tenderness Back/Spine Narrative: No midline tenderness there is ecchymosis part right lower lumbar above the iliac crest. Skin intact. Straight leg test negative. Extremity normal to inspection General Extremety ED: Negative for edema or tenderness General Extremity: Negative for edema Neuro oriented x3 and no sensory deficits noted Sensorium / Orientation: awake and alert Skin no rashes or lesions noted and no wounds MDM MDM MDM Narrative Medical decision making narrative: Reviewed records lumbar x-ray yesterday was negative there is been no new injuries. Oarrs report negative for any opiates she is on chronic benzodiazepines. Patient treated 1 mg Dilaudid IM along with Zofran in the ED. She will keep her PCP appointment tomorrow for any additional pain medicines to continue for treatment as she is being managed by neurosurgery as an outpatient. She was anxious to leave due to stating recent loss of her mother 2 weeks ago was buried in the wrong place and needs to be moved at 3 PM today. Discharged with outpatient follow-up. Discharge Plan Triage Chief Complaint: Back ED Provider: Lasha Madden Dx/Rx/DC Orders Clinical Impression: Lumbar contusion, Chronic sciatica of right side Instructions: ED Back Contusion, ED Sciatica Prescriptions: No Action Airborne (ascorbate sodium) 333-1.7 mg tablet,chewable 4 tab PO DAILY RF: 0 cholecalciferol (vitamin D3) 25 mcg (1,000 unit) capsule 25 mcg PO DAILY RF: 0 tretinoin 0.05 % cream 1 applic topical QHS Qty: 20 RF: 0 lamotrigine 200 mg tablet PO RF: 0 paroxetine HCl 40 mg tablet 40 mg PO DAILY Qty: 30 RF: 0 melatonin 5 mg tablet 5 mg PO HS PRN (Reason: sleep) Qty: 30 RF: 1 alprazolam 2 MG tablet 2 mg PO TID PRN (Reason: Anxiety) RF: 0 rosuvastatin [Crestor] 10 mg tablet 10 mg PO QHS RF: 0 (DME) Altera Nebulizer System Misc See Rx Instructions .ROUTE .MEDSUPPLY Qty: 1 RF: 3 fluticasone propionate 50 mcg/actuation spray,suspension See Rx Instructions .Route PRN PRN (Reason: Nasal Congestion) Qty: 15.8 RF: 3 ipratropium-albuterol 0.5 mg-3 mg(2.5 mg base)/3 mL solution for nebulization 3 ml INHALATION Q8H PRN (Reason: shortness of breath or wheezing) Qty: 90 RF: 3 lisinopril 20 mg tablet 20 mg PO DAILY Qty: 90 RF: 3 omeprazole 40 mg capsule,delayed release(DR/EC) 40 mg PO DAILY Qty: 90 RF: 3 (DME) OneTouch Verio test strips Strip See Rx Instructions .ROUTE .MEDSUPPLY Qty: 100 RF: 3 (DME) blood-glucose meter [OneTouch Verio Flex meter] Misc See Rx Instructions .ROUTE .MEDSUPPLY Qty: 1 RF: 0 (DME) Blood Glucose Test Strip See Rx Instructions .ROUTE .MEDSUPPLY Qty: 50 RF: 3 (DME) blood-glucose meter Misc See Rx Instructions .ROUTE .MEDSUPPLY Qty: 1 RF: 0 (DME) lancets 32 gauge misc See Rx Instructions .ROUTE .MEDSUPPLY Qty: 100 RF: 3 albuterol sulfate [Ventolin HFA] 90 mcg/actuation HFA aerosol inhaler 2 puff INHALATION Q6H PRN (Reason: shortness of breath or wheezing) Qty: 8 RF: 3 budesonide-formoterol [Symbicort] 160-4.5 mcg/actuation HFA aerosol inhaler 2 puff INHALATION BID Qty: 10.2 RF: 3 methylprednisolone [Medrol (Jorge)] 4 mg tablets,dose pack 4 mg PO DAILY Qty: 21 RF: 0 baclofen 10 mg tablet 10 mg PO BID PRN (Reason: muscle spasm) Qty: 60 RF: 2 ondansetron 4 mg tablet,disintegrating 4 mg PO Q8H PRN PRN (Reason: Nausea) Qty: 30 RF: 1 Primary Care Provider: Nola Rodriguez Referrals: Nola Rodriguez MD [Primary Care Provider] - 1 Day (as scheduled) Activity Restrictions/Additional Instructions: X-ray lumbar spine negative yesterday. Follow-up with your PCP as scheduled tomorrow for additional pain medicines as needed. Disposition Disposition: Home, Self Care Discharge Date/Time: 05/02/22 13:04
== END 2022-05-02 13:04 | disposition home or self-care (01) ==
PROVIDERS: Emergency Provider Emergency Medicine; PCP Internal Medicine; Visit Provider Emergency Medicine
DX: S30.0XXA Contusion of lower back and pelvis, initial encounter (principal); E11.40 Type 2 diabetes mellitus with diabetic neuropathy, unspecified; I10 Essential (primary) hypertension; M54.31 Sciatica, right side; F17.210 Nicotine dependence, cigarettes, uncomplicated; E78.5 Hyperlipidemia, unspecified; F32.A Depression, unspecified; F41.9 Anxiety disorder, unspecified; G89.29 Other chronic pain; K21.9 Gastro-esophageal reflux disease without esophagitis; K58.9 Irritable bowel syndrome, unspecified; W19.XXXA Unspecified fall, initial encounter; Z79.899 Other long term (current) drug therapy
CPT/HCPCS: 96372; 99283

== ENCOUNTER 2022-05-06 16:18 | Emergency (ER) | payer MEDICAID, SELFPAY ==
[2022-05-06 16:19] VITALS: BP 159/109; PULSE 65; RESP 14; TEMP 36.6; O2SAT 97; BMI 28.9
--- NOTE | 2022-05-06 16:45 | ED.VIS.BACK ---
HPI History of Present Illness Chief Complaint: Back Detail of Chief Complaint: Lateral low back pain Informant: patient Onset/Context/Timing Onset: - (1 year worse the past 2 to 3 months) Context: - (Intermittent) Injury: - (Worsening back pain. No history of trauma) Timing: Continuous and Waxes and wanes Quality: Dull and Aching Location: Lumbar (Bilateral low back pain radiating to the right and left iliac wing and greater trochanteric region) Current Severity: Moderate Maximum Severity: Severe Worsened by: improves with Movement, Ambulation, Bending, Lifting and - (Sitting) Relieved by: Nothing Associated Symptoms Associated Symptoms: - (Denies saddle paresthesia or anesthesia); Negative for Numbness, Tingling, Radiation to Right Leg, Radiation to Left Leg, Fever, Abdominal Pain, Dysuria, Unable to Ambulate, Unable to Transfer, Urinary Retention, Urinary Incontinence, Constipation and Fecal Incontinence Narrative Narrative: Patient is a 56-year-old woman with back pain for proxy 1 year. She was referred to a spine surgeon. She apparently has severe claustrophobia and is seeing the spine surgeon determine if she needs an open MRI. She denies any constitutional symptoms. She denies GI or symptoms. She denies gynecologic symptoms. She denies radicular pain. She denies foot drop. She denies buckling of knees going up or down steps. She feels uncomfortable going up or down so family member comes over to do her laundry in the basement. Prior similar symptoms: Yes Recent Illness/Hospitalization: No PFSH [facility] Medical History Abnormal EKG Acute exacerbation of chronic low back pain Acute sinusitis, unspecified Anxiety and depression Asthma Candidiasis of mouth and esophagus Carpal tunnel syndrome Chronic back pain Chronic headaches Chronic radicular lumbar pain Concussion Cough Diabetes Encounter for screening for malignant neoplasm of lung in current smoker with 30 pack year history or greater Fall GERD (gastroesophageal reflux disease) Grief Head injury High blood pressure HTN (hypertension) Hx of emotional problems Hyperlipidemia IBS (irritable bowel syndrome) Left otitis externa Muscle spasm Neuropathy Otitis media Panic attack Post concussion syndrome Seasonal allergies Type 2 diabetes mellitus URI (upper respiratory infection) Vision problems Home Medications alprazolam 2 mg PO TID PRN 03/24/19 [History Last Taken 08/22/20 04:30 2 MG] nebulizers #1 ea 09/06/20 [Rx Last Taken Unknown] fluticasone propionate 50 mcg/actuation nasal spray,suspension See Rx Instructions .ROUTE PRN PRN #15.8 ml 11/16/21 [Rx Last Taken Unknown] ipratropium 0.5 mg-albuterol 3 mg (2.5 mg base)/3 mL nebulization soln 3 ml INHALATION Q8H PRN #90 ml 11/16/21 [Rx Last Taken Unknown] lisinopril 20 mg tablet 20 mg PO DAILY #90 tab 11/16/21 [Rx Last Taken Unknown] omeprazole 40 mg capsule,delayed release 40 mg PO DAILY #90 cap 11/16/21 [Rx Last Taken Unknown] blood sugar diagnostic #100 ea 11/27/21 [Rx Last Taken Unknown] blood-glucose meter #1 ea 11/27/21 [Rx Last Taken Unknown] blood sugar diagnostic #50 ea 11/28/21 [Rx Last Taken Unknown] blood-glucose meter #1 ea 11/28/21 [Rx Last Taken Unknown] lancets 32 gauge #100 ea 11/28/21 [Rx Last Taken Unknown] cholecalciferol (vitamin D3) 25 mcg (1,000 unit) capsule 25 mcg PO DAILY 12/07/21 [History Last Taken Unknown] mv-min-vit C-ascorb Ec-Gpk-Gvs-herb #124 333 mg-1.7 mg chewable tablet 4 tab PO DAILY 12/07/21 [History Last Taken Unknown] Ventolin HFA 90 mcg/actuation aerosol inhaler 2 puff INHALATION Q6H PRN #8 g NS 01/28/22 [Rx Last Taken Unknown] tretinoin 0.05 % topical cream 1 applic TOPICAL QHS #20 g 02/15/22 [Rx Last Taken Unknown] budesonide-formoterol HFA 160 mcg-4.5 mcg/actuation aerosol inhaler 2 puff INHALATION BID #10.2 g 03/01/22 [Rx Last Taken Unknown] rosuvastatin [Crestor] 10 mg PO QHS 03/11/22 [History Last Taken Unknown] lamotrigine 200 mg tablet ea PO 03/12/22 [History Last Taken Unknown] melatonin 5 mg tablet 5 mg PO HS PRN #30 tab 03/12/22 [Rx Last Taken Unknown] paroxetine HCl 40 mg tablet 40 mg PO DAILY #30 tab 03/12/22 [Rx Last Taken Unknown] baclofen 10 mg tablet 10 mg PO BID PRN #60 tab 04/03/22 [Rx Last Taken Unknown] methylprednisolone 4 mg tablets in a dose pack 4 mg PO DAILY #21 tab 04/03/22 [Rx Last Taken Unknown] ondansetron 4 mg disintegrating tablet 4 mg PO Q8H PRN PRN #30 tab 04/03/22 [Rx Last Taken Unknown] Allergy/AdvReac Type Severity Reaction Status Date / Time red dye Allergy Severe swelling Verified 05/06/22 16:19 carbidopa Allergy Unknown Verified 05/06/22 16:19 gabapentin Allergy Unknown Verified 05/06/22 16:19 latex Allergy Rash Verified 05/06/22 16:19 quetiapine fumarate Allergy Other Verified 05/06/22 16:19 [From Seroquel] topiramate [From Topamax] Allergy Hives Verified 05/06/22 16:19 tramadol HCl [From Ultram] Allergy Other Verified 05/06/22 16:19 amitriptyline AdvReac Vomiting Verified 05/06/22 16:19 aspirin AdvReac Upset Verified 05/06/22 16:19 Stomach codeine AdvReac Vomiting Verified 05/06/22 16:19 cyclobenzaprine HCl AdvReac Upset Verified 05/06/22 16:19 [From Flexeril] Stomach etodolac [Etodolac] AdvReac Vomiting Verified 05/06/22 16:19 hydrocodone bitartrate AdvReac Vomiting Verified 05/06/22 16:19 [From Vicodin] ketorolac tromethamine AdvReac Other Verified 05/06/22 16:19 [From Toradol] metformin AdvReac Diarrhea Verified 05/06/22 16:19 metoclopramide [From Reglan] AdvReac Other Verified 05/06/22 16:19 morphine AdvReac Vomiting Verified 05/06/22 16:19 naproxen [From Naprosyn] AdvReac Upset Verified 05/06/22 16:19 Stomach propoxyphene napsylate AdvReac Vomiting Verified 05/06/22 16:19 [From Darvocet-N 100] Family History Mother Malignant hyperthermia due to anesthesia Angina pectoris Arthritis Bowel disease Myocardial infarction Heart disease Hypertension High cholesterol CVA (cerebral vascular accident) Father Asthma Arthritis Myocardial infarction Heart disease High cholesterol Hypertension CVA (cerebral vascular accident) Leukemia Diabetes Grandmother Lung cancer Grandfather Diabetes Grandmother Diabetes Surgical History History of History of cholecystectomy History of orthopedic surgery History of partial hysterectomy History of total hysterectomy S/P knee surgery Social History Smoking Status: Current every day smoker tobacco type: cigarettes Tobacco: How many years used: 46 Electronic Cigarette Use: not used how long ago did patient quit smokin+ pack year smoking history (1.5-2 ppd x 32 years, 3 ppd x 14 years). second hand exposure: Yes quit status: considering quitting counseling given: provider counseling alcohol intake: never substance use type: does not use what type of physical activity do you participate in: walking and bicycling ROS ROS ED Constitutional Constitutional ED: Denies chills, fever(s), subjective, sweats or weight loss Eyes Eyes: Denies blurry vision or change in vision ENT ENT ED: Denies ear pain, rhinorrhea or sore throat Cardiovascular Cardiovascular: Denies chest pain, orthopnea, palpitations or paroxysmal nocturnal dyspnea Respiratory/Chest Respiratory/Chest: Denies dyspnea, orthopnea, paroxysmal nocturnal dyspnea or sputum Gastrointestinal Gastrointestinal: Denies abdominal pain, constipation, diarrhea, nausea or vomiting Genitourinary Genitourinary ED: Denies dysuria, hematuria or urinary frequency Musculoskeletal Musculoskeletal: Reports back pain; Denies arthralgias, myalgias or neck pain Integumentary Reports Abrasions; Denies rash Neurologic Neurologic: Reports weakness; Denies headache(s) or paresthesias Psychiatric Psychiatric: Reports depression Endocrine Endocrinology: Denies polydipsia, polyphagia or polyuria Hematologic/Lymphatic Hematologic/Lymphatic: Denies easy bleeding or easy bruising EXAM Physical Exam Const Vital Signs: 05/06/22 16:19 Temperature 98 F Temperature Source Temporal Pulse Rate 65 Respiratory Rate 14 Blood Pressure 159/109 H Blood Pressure Mean 125 Pulse Ox 97 Oxygen Delivery Method Room Air Positive well nourished and well developed General Appearance ED: well developed and other Patient is tearful. Patient smells of tobacco. Patient began to cry louder when I asked her to set up. ; Negative for pallor HEENT Reports moist mucous membranes HEENT Narrative: Ears normal. Nares patent. No evidence of facial trauma. Negative for trauma or tenderness Eyes PERRL and EOMs intact bilaterally General Eye ED: Negative for pale conjunctiva or scleral icterus Neck no lymphadenopathy, supple and no JVD Resp normal respiratory effort and clear to auscultation bilaterally Cardio regular rate, regular rhythm, S1 normal heart sound, S2 normal heart sound and no murmurs GI normal to inspection, nondistended, normoactive bowel sounds, soft to palpation, non-tender and non-distended Palpation: Negative for hepatomegaly, splenomegaly, mass or pulsatile mass Back/Spine Negative for no thoracic nor lumbar tenderness Back/Spine Narrative: Patella and ankle reflex are 1+ and symmetric. EHLs intact. DP and PT pulse are 2+ and symmetric. There is an abrasion noted left buttocks. There is no evidence of infection. Gait observed. There is no foot drop. Able to walk on heels and toes. Able to perform 1 legged squat right and left side. She complains of severe pain using the right leg. She did not fall. General Back: Negative for CVA tenderness Cervical Spine: Negative for cervical spine tenderness Thoracic Spine / Upper Back: paraspinal muscle tenderness Lumbar Spine / Lower Back: straight leg raise negative bilaterally Extremity no clubbing, cyanosis or edema; Negative for normal to inspection Extremity Narrative: Abrasion noted lateral side of left foot. General Extremety ED: Yes other findings; Negative for edema or tenderness General Extremity: other findings Other Details: Abrasion lateral aspect of left foot ; Negative for edema Neuro oriented x3 and no sensory deficits noted Sensorium / Orientation: alert; Negative for confused, lethargic or stuporous Motor Exam: strength 5/5 throughout Deep Tendon Reflexes: Rt Patellar (L4): 1+, Lt Patellar (L4): 1+, Rt Ankle (S1): 1+ and Lt Ankle (S1): 1+ Deep Tendon Reflexes Back: Rt Patellar (L4): 1+, Lt Patellar (L4): 1+, Rt Ankle (S1): 1+ and Lt Ankle (S1): 1+ Plantar Reflex: Downgoing: bilateral Psych Mood & Affect: depressed and tearful Skin no rashes or lesions noted General Skin Exam: Negative for jaundice or pallor Trauma: abrasion MDM MDM MDM Narrative Medical decision making narrative: Patient with bilateral low back pain. Based on a normal neurologic exam and lack of straight leg test and normal sensation over S1, S2, L5, L4 and L3 dermatome it is my professional opinion patient does not need an emergent MRI. She has reproducible pain of the paralumbar region bilaterally. She was treated with IV Toradol and morphine. She was given a dose of Zofran since she states she becomes nauseous with opiates. I was informed by Adrian, patient's nurse, that she reported rapid relief after injection of IV meds. She also made comment that she received Dilaudid last week. Shortly after receiving the medicine she requested to leave. Suspect patient is drug-seeking. And, she is depressed. Discharge Plan Triage Chief Complaint: Back ED Provider: Heri Terry Dx/Rx/DC Orders Clinical Impression: Chronic bilateral low back pain, Abrasion of buttock, Abrasion of foot, left, Depression Instructions: ED Back Pain (Acute or Chronic) Prescriptions: No Action Airborne (ascorbate sodium) 333-1.7 mg tablet,chewable 4 tab PO DAILY RF: 0 cholecalciferol (vitamin D3) 25 mcg (1,000 unit) capsule 25 mcg PO DAILY RF: 0 tretinoin 0.05 % cream 1 applic topical QHS Qty: 20 RF: 0 lamotrigine 200 mg tablet PO RF: 0 paroxetine HCl 40 mg tablet 40 mg PO DAILY Qty: 30 RF: 0 melatonin 5 mg tablet 5 mg PO HS PRN (Reason: sleep) Qty: 30 RF: 1 alprazolam 2 MG tablet 2 mg PO TID PRN (Reason: Anxiety) RF: 0 rosuvastatin [Crestor] 10 mg tablet 10 mg PO QHS RF: 0 (DME) Altera Nebulizer System Misc See Rx Instructions .ROUTE .MEDSUPPLY Qty: 1 RF: 3 fluticasone propionate 50 mcg/actuation spray,suspension See Rx Instructions .Route PRN PRN (Reason: Nasal Congestion) Qty: 15.8 RF: 3 ipratropium-albuterol 0.5 mg-3 mg(2.5 mg base)/3 mL solution for nebulization 3 ml INHALATION Q8H PRN (Reason: shortness of breath or wheezing) Qty: 90 RF: 3 lisinopril 20 mg tablet 20 mg PO DAILY Qty: 90 RF: 3 omeprazole 40 mg capsule,delayed release(DR/EC) 40 mg PO DAILY Qty: 90 RF: 3 (DME) OneTouch Verio test strips Strip See Rx Instructions .ROUTE .MEDSUPPLY Qty: 100 RF: 3 (DME) blood-glucose meter [OneTouch Verio Flex meter] Misc See Rx Instructions .ROUTE .MEDSUPPLY Qty: 1 RF: 0 (DME) Blood Glucose Test Strip See Rx Instructions .ROUTE .MEDSUPPLY Qty: 50 RF: 3 (DME) blood-glucose meter Misc See Rx Instructions .ROUTE .MEDSUPPLY Qty: 1 RF: 0 (DME) lancets 32 gauge misc See Rx Instructions .ROUTE .MEDSUPPLY Qty: 100 RF: 3 albuterol sulfate [Ventolin HFA] 90 mcg/actuation HFA aerosol inhaler 2 puff INHALATION Q6H PRN (Reason: shortness of breath or wheezing) Qty: 8 RF: 3 budesonide-formoterol [Symbicort] 160-4.5 mcg/actuation HFA aerosol inhaler 2 puff INHALATION BID Qty: 10.2 RF: 3 methylprednisolone [Medrol (Jorge)] 4 mg tablets,dose pack 4 mg PO DAILY Qty: 21 RF: 0 baclofen 10 mg tablet 10 mg PO BID PRN (Reason: muscle spasm) Qty: 60 RF: 2 ondansetron 4 mg tablet,disintegrating 4 mg PO Q8H PRN PRN (Reason: Nausea) Qty: 30 RF: 1 Primary Care Provider: Nola Rodriguez Referrals: Nola Rodriguez MD [Primary Care Provider] - As Needed (Based on patient's history and physical her findings are not consistent with a herniated disc. Furthermore concern for drug-seeking behavior. Also believe patient is depressed and is probable cause of her chronic back pain.) Disposition Disposition: Home, Self Care
[2022-05-06] MEDS: Ketorolac 15 MG/ML Vial IV (16:58)
[2022-05-06] MEDS: Ondansetron 4 MG/2 ML Vial IV (16:58)
[2022-05-06] MEDS: Morphine 4 MG/ML Syringe IV (16:59)
--- NOTE | 2022-05-06 17:04 | ED.RN ---
pt. states once the iv was in and medicated so i can leave now? this nurse states we will have to wait. till the dr. villanueva. dr. cuevas aware.
== END 2022-05-06 18:12 | disposition home or self-care (01) ==
PROVIDERS: Emergency Provider Emergency Medicine; PCP Internal Medicine; Visit Provider Emergency Medicine
DX: M54.50 Low back pain, unspecified (principal); E11.40 Type 2 diabetes mellitus with diabetic neuropathy, unspecified; F17.210 Nicotine dependence, cigarettes, uncomplicated; E78.5 Hyperlipidemia, unspecified; I10 Essential (primary) hypertension; F32.A Depression, unspecified; K21.9 Gastro-esophageal reflux disease without esophagitis; K58.9 Irritable bowel syndrome, unspecified; G89.29 Other chronic pain; J45.909 Unspecified asthma, uncomplicated; Z79.899 Other long term (current) drug therapy; S30.810A Abrasion of lower back and pelvis, initial encounter; S90.812A Abrasion, left foot, initial encounter; M79.604 Pain in right leg; X58.XXXA Exposure to other specified factors, initial encounter
CPT/HCPCS: 96374; 96375; 99283; J2405

== ENCOUNTER 2022-05-09 17:00 | Outpatient (RCR) | payer MEDICAID, SELFPAY ==
--- NOTE | 2022-05-09 18:33 | HP.PTEVAL_ITS ---
Patient's Visit Information RHONDA MORRISON is a 56 year old F referred to Physical Therapy by Dr. Garcia Fuchs DO with a diagnosis of LUMBAR BACK PAIN ,DEGENERATIVE SPONDYLOLISTHESIS. Date of Evaluation: 05/09/22 Physical Therapist: Onel Reeder, PT, Cert MDT, OCS - Visit Plan Frequency: 2x /Week Duration: 4 Weeks Plan: PT INTERVETIONS MODALTIES FOR PAIN ,GRADED POSTURAL EX'S,DLS ,STRENGTHENING BLE , AND ACTIVITY MODIFICATION - Subjective This 56 y/o female presents to physical therapy with lumbar pain with lumbar radiculopathy. Patient gomez had lumbar radiculopathy ~ 1 1/2 which has progressively worse. Patient seen Family DR who recommended Fuchs Back specialist. Patient has been in ER past 1week x2 prescribed medication for pain. Patient takes teylonal for home ,ice /heat. Aggravating factors worse with sitting, standing ,bending walking and standing and patient uses rollator for gait min distances. Patient ahs been falling at home due to pain and legs give way. Alleviating heat/cold. Patient unable to sleep due to pain. Patient has depressed because brother and mother past away. Coughing/sneezing/stain (+ )Bowel /bladder -. Patient has tingling in legs. Patient also c/o weakness in legs. Location pain symmetrical lumbar and thighs to feet. Patient is unable to drive cooking ,cleaning and unable to negotiate steps. Patient condition with pain has affects QOL and function. SOCIAL: single. VOCATION: disability - Pain Bilateral Back Pain Intensity (Out of 10): 10 Pain Intensity Range: 10 Bilateral Lower Extremity Pain Intensity (Out of 10): 10 Pain Intensity Range: 10 - Objective POSTURE: mild forward posture hips/knees flexed in guarded position. GAIT: ambulated forward posture slow [place] antalgic gait. NEURO: c/o paresthesia/tingling in legs ,reflexes L3-4 ,L4-5,L5 -S1 1/3. SYMMETRIES: align. PALPATION: tender SI /LS. MMT: quads 3+/5 ,hamstrings 3+/5 , hip flexion 3+/5,ankle 4-/5. FLEXABILTY: hams severe tight. LUMBAR ROM: flexion mod/severe loss ,extension severe loss ,side glides severe loss. UNABLE UNABLE HEEL/TOE WALKING - Special Tests L/S Slump test left side: Positive L/S Slump test right side: Positive L/S Left Straight Leg Raise: Positive L/S Right Straight Leg Raise: Positive Lumbar Standing: Flexion - Mechanical Response: No effect Lumbar Standing: Flexion - Symptoms During Testing: Increases Lumbar Standing: Flexion - Symptoms After Testing: Worse Lumbar Standing: Extension - Mechanical Response: No effect Lumbar Standing: Extension - Symptoms During Testing: Increases Lumbar Standing: Extension - Symptoms After Testing: Worse Lumbar Standing: Right Side Glides - Mechanical Response: No effect Lumbar Standing: Right Side [place] - Symptoms During Testing: Increases Lumbar Standing: Right Side [place] - Symptoms After Testing: Worse Lumbar Standing: Left Side [place] - Mechanical Response: No effect Lumbar Standing: Left Side [place] - Symptoms During Testing: Increases Lumbar Standing: Left Side [place] - Symptoms After Testing: Worse - Balance/Special Test Scores Oswestry Low Back Score: 39 - Goals Goal 1:: Patient to be I with HEP for lumbar Goal Time Frame: 4-6 Weeks Goal 2:: Patient to improve gait with improved [place] and and less pain community distances Goal Time Frame: 4-6 Weeks Goal 3:: Patient to demonstrate 50% improvement with decrease pain and improved function Goal Time Frame: 4-6 Weeks Goal 4:: Patient to improve lumbar ROM for function of recovery. Goal Time Frame: 4-6 Weeks Goal 5:: Patient to improve back oswestry score by 5 points to improve QOL Goal Time Frame: 4-6 Weeks - Rehabilitation Potential Physical Therapy Diagnosis: Patient has lumbar pain with radicular symptoms with severe pain in legs and back with severe loss of lumbar motion ,weakness in legs ,pain with positioning and motion testing ,impairs walking ,standing and need rollator for walking, patient has been falling at home thus will benefit from skilled PT and may benefit from MRI Rehabilitation Potential: Poor - Anticipated Interventions Patient/Client Instruction: Educate patient on: Condition, Plan of Care For the Purpose of:: To decrease pain, To increase ROM, To improve muscle performance and motor function, To improve ability to perform ADL's, To increase tolerance to activity/condition/position, To improve performance and independence with ADL's, To improve ability of physical actions for home/community/work/leisure, To improve health of tissue, To decrease soft tissue restriction, To increase flexibility/ROM, To improve balance, To improve safety with gait, To reduce risk of recurrence, To improve tolerance to ADL's Therapeutic Exercise to Include: Strength training, Endurance training, Body mechanics, Postural training, Flexibilty training, Active ROM, Dynamic Lumbar Stabilization Comment: BLE For the Purpose of:: To decrease pain, To increase ROM, To improve muscle performance and motor function, To improve ability to perform ADL's, To increase tolerance to activity/condition/position, To improve ability of physical actions for home/community/work/leisure, To improve health of tissue, To decrease soft tissue restriction, To increase flexibility/ROM, To improve endurance, To improve safety with gait, To reduce risk of recurrence TENS: Yes IF ES: Yes Cryotherapy (ice pack, ice massage): Yes Thermo therapy (hot pack): Yes Ultrasound (thermal/non thermal): Yes For the Purpose of:: To decrease pain, To decrease swelling/inflammation, To improve nutrient delivery to tissue, To increase oxygenation perfusion, To improve health of tissue, To decrease soft tissue restriction Thank you for the opportunity to evaluate your patient. For Medicare and Medicare HMO plans, please review the plan of care and approve it. It will need to be FAXED BACK to us at [phone] for Medicare purposes. For Medicare only, by signing this I certify the plan of care. Please let me know if there are questions or concerns regarding this plan of care. Physician Signature: Date:
== END 2022-05-09 19:00 | disposition home or self-care (01) ==
LOC: PT 17:00
PROVIDERS: PCP Internal Medicine; Referring Provider Orthopaedic Surgery; Visit Provider Orthopaedic Surgery
DX: M43.10 Spondylolisthesis, site unspecified (principal); M54.50 Low back pain, unspecified
CPT/HCPCS: 97162

== ENCOUNTER 2022-05-11 11:50 | Emergency (ER) | payer MEDICAID, SELFPAY ==
[2022-05-11 11:51] VITALS: BP 157/92; PULSE 100; RESP 16; TEMP 37.2; O2SAT 98; BMI 28.3
--- NOTE | 2022-05-11 12:16 | ED.RN ---
Pt. reports she feels she needs a dose of Dilauded/morphine to help with her pain. When questioned about her listed allergies to multiple PO narcotics patient states I wont take none of those, they mess up my stomach and make me see cats.
--- NOTE | 2022-05-11 12:22 | ED.VIS.BACK ---
HPI History of Present Illness Chief Complaint: Back Detail of Chief Complaint: Back pain Informant: patient Onset/Context/Timing Current Severity: Severe Narrative Narrative: Patient presents to the emergency department complaint of back pain that initially started in March of this year. Patient has been seen by her primary care physician and referred to a back surgeon who saw her once. Patient's been doing physical therapy and is waiting approval for an open MRI of her back. Patient states that she thinks she overdid it the other day when she was trying to sweep her floors. Patient complaining of pain that is in her low back and radiating into her buttocks and down the back of both legs. She denies weakness in the extremities. She denies change in bowel or bladder function. She denies urinary symptoms. She denies injury or trauma otherwise. Prior similar symptoms: Yes PFSH PFSH Medical History Abnormal EKG Acute exacerbation of chronic low back pain Anxiety and depression Asthma Carpal tunnel syndrome Chronic back pain Chronic headaches Chronic radicular lumbar pain Concussion Cough Encounter for screening for malignant neoplasm of lung in current smoker with 30 pack year history or greater Essential hypertension Fall GERD (gastroesophageal reflux disease) Grief Head injury Hx of emotional problems Hyperlipidemia IBS (irritable bowel syndrome) Muscle spasm Neuropathy Panic attack Post concussion syndrome Seasonal allergies Type 2 diabetes mellitus Vision problems Home Medications alprazolam 2 mg PO TID PRN 03/24/19 [History Last Taken 08/22/20 04:30 2 MG] nebulizers #1 ea 09/06/20 [Rx Last Taken Unknown] fluticasone propionate 50 mcg/actuation nasal spray,suspension See Rx Instructions .ROUTE PRN PRN #15.8 ml 11/16/21 [Rx Last Taken Unknown] ipratropium 0.5 mg-albuterol 3 mg (2.5 mg base)/3 mL nebulization soln 3 ml INHALATION Q8H PRN #90 ml 11/16/21 [Rx Last Taken Unknown] lisinopril 20 mg tablet 20 mg PO DAILY #90 tab 11/16/21 [Rx Last Taken Unknown] omeprazole 40 mg capsule,delayed release 40 mg PO DAILY #90 cap 11/16/21 [Rx Last Taken Unknown] blood sugar diagnostic #100 ea 11/27/21 [Rx Last Taken Unknown] blood-glucose meter #1 ea 11/27/21 [Rx Last Taken Unknown] blood sugar diagnostic #50 ea 11/28/21 [Rx Last Taken Unknown] blood-glucose meter #1 ea 11/28/21 [Rx Last Taken Unknown] lancets 32 gauge #100 ea 11/28/21 [Rx Last Taken Unknown] cholecalciferol (vitamin D3) 25 mcg (1,000 unit) capsule 25 mcg PO DAILY 12/07/21 [History Last Taken Unknown] mv-min-vit C-ascorb Ov-Oov-Gfv-herb #124 333 mg-1.7 mg chewable tablet 4 tab PO DAILY 12/07/21 [History Last Taken Unknown] Ventolin HFA 90 mcg/actuation aerosol inhaler 2 puff INHALATION Q6H PRN #8 g NS 01/28/22 [Rx Last Taken Unknown] tretinoin 0.05 % topical cream 1 applic TOPICAL QHS #20 g 02/15/22 [Rx Last Taken Unknown] budesonide-formoterol HFA 160 mcg-4.5 mcg/actuation aerosol inhaler 2 puff INHALATION BID #10.2 g 03/01/22 [Rx Last Taken Unknown] rosuvastatin [Crestor] 10 mg PO QHS 03/11/22 [History Last Taken Unknown] lamotrigine 200 mg tablet ea PO 03/12/22 [History Last Taken Unknown] melatonin 5 mg tablet 5 mg PO HS PRN #30 tab 03/12/22 [Rx Last Taken Unknown] baclofen 10 mg tablet 10 mg PO BID PRN #60 tab 04/03/22 [Rx Last Taken Unknown] methylprednisolone 4 mg tablets in a dose pack 4 mg PO DAILY #21 tab 04/03/22 [Rx Last Taken Unknown] ondansetron 4 mg disintegrating tablet 4 mg PO Q8H PRN PRN #30 tab 04/03/22 [Rx Last Taken Unknown] paroxetine HCl 30 mg tablet 30 mg PO tab 05/08/22 [History Last Taken Unknown] oxycodone-acetaminophen [Percocet] 1 tab PO TID PRN 3 Days #10 tab 05/11/22 [Rx Last Taken Unknown] Allergy/AdvReac Type Severity Reaction Status Date / Time red dye Allergy Severe swelling Verified 05/11/22 11:53 carbidopa Allergy Unknown Verified 05/11/22 11:53 gabapentin Allergy Unknown Verified 05/11/22 11:53 latex Allergy Rash Verified 05/11/22 11:53 quetiapine fumarate Allergy Other Verified 05/11/22 11:53 [From Seroquel] topiramate [From Topamax] Allergy Hives Verified 05/11/22 11:53 tramadol HCl [From Ultram] Allergy Other Verified 05/11/22 11:53 amitriptyline AdvReac Vomiting Verified 05/11/22 11:53 aspirin AdvReac Upset Verified 05/11/22 11:53 Stomach codeine AdvReac Vomiting Verified 05/11/22 11:53 cyclobenzaprine HCl AdvReac Upset Verified 05/11/22 11:53 [From Flexeril] Stomach etodolac [Etodolac] AdvReac Vomiting Verified 05/11/22 11:53 hydrocodone bitartrate AdvReac Vomiting Verified 05/11/22 11:53 [From Vicodin] metformin AdvReac Diarrhea Verified 05/11/22 11:53 metoclopramide [From Reglan] AdvReac Other Verified 05/11/22 11:53 naproxen [From Naprosyn] AdvReac Upset Verified 05/11/22 11:53 Stomach propoxyphene napsylate AdvReac Vomiting Verified 05/11/22 11:53 [From Darvocet-N 100] Family History Mother Malignant hyperthermia due to anesthesia Angina pectoris Arthritis Bowel disease Myocardial infarction Heart disease Hypertension High cholesterol CVA (cerebral vascular accident) Father Asthma Arthritis Myocardial infarction Heart disease High cholesterol Hypertension CVA (cerebral vascular accident) Leukemia Diabetes Grandmother Lung cancer Grandfather Diabetes Grandmother Diabetes Surgical History History of History of cholecystectomy History of orthopedic surgery History of partial hysterectomy History of total hysterectomy S/P knee surgery Social History Smoking Status: Current every day smoker tobacco type: cigarettes Tobacco: How many years used: 46 Electronic Cigarette Use: not used how long ago did patient quit smokin+ pack year smoking history (1.5-2 ppd x 32 years, 3 ppd x 14 years). second hand exposure: Yes quit status: considering quitting counseling given: provider counseling alcohol intake: never substance use type: does not use what type of physical activity do you participate in: walking and bicycling ROS ROS ED Constitutional Constitutional ED: Reports systems reviewed and no addt'l complaints, except as documented; Denies body ache(s), change in weight or chills Eyes Eyes: Denies acute decrease in peripheral vision, change in vision, double vision or loss of vision ENT ENT ED: Reports none; Denies ear pain, lip swelling, loss taste/smell, neck pain, otalgia or sore throat Cardiovascular Cardiovascular: Reports none; Denies abdominal pain, chest pain with activity, leg edema, lightheadedness, palpitations, rapid heart rate or syncope Respiratory/Chest Respiratory/Chest: Reports none; Denies change in mental status, dry cough, dyspnea, hemoptysis, shortness of breath at rest or shortness of breath with exertion Gastrointestinal Gastrointestinal: Reports none; Denies abdominal pain, change in stool character, diarrhea, hematemesis, hematochezia, melena, rectal bleeding or vomiting Genitourinary Genitourinary ED: Reports none; Denies abdominal discomfort, anuria, dysuria, genital pain or polyuria Musculoskeletal Musculoskeletal: Reports none and back pain; Denies arthralgias, difficulty walking, extremity pain, muscle weakness or myalgias Integumentary Reports none; Denies abscess or rash Neurologic Neurologic: Reports none; Denies abnormal gait, confusion, focal weakness, frequent falls, headache(s), loss of vision, numbness, paresthesias, radicular pain, vertigo or weakness Psychiatric Psychiatric: Reports systems reviewed and no addt'l complaints, except as documented and none; Denies behavioral changes, confusion, difficulty concentrating, hallucinations, suicidal ideation, tactile hallucinations or visual hallucinations Endocrine Endocrinology: Denies none, cold intolerance, excessive sweating, fatigue or heat intolerance Hematologic/Lymphatic Hematologic/Lymphatic: Reports none; Denies anemia, easy bleeding or easy bruising Allergic/Immunologic Allergic/Immunologic ED: Denies as per HPI, none, lip swelling, mouth swelling, throat swelling, tongue swelling or hives EXAM Physical Exam Const Vital Signs: 05/11/22 11:51 Temperature 98.9 F Temperature Source Temporal Pulse Rate 100 Respiratory Rate 16 Blood Pressure 157/92 H Blood Pressure Mean 113 Pulse Ox 98 Oxygen Delivery Method Room Air Positive well nourished and well developed General Appearance ED: well developed and NAD HEENT Reports TM's clear and moist mucous membranes normocephalic and atraumatic; Negative for trauma or tenderness Tympanic Membrane ED: Yes TM's clear Eyes PERRL and EOMs intact bilaterally General Eye ED: Negative for pale conjunctiva or scleral icterus Neck no lymphadenopathy, supple and no JVD General: Negative for tenderness Chest Wall inspection of chest normal and palpation of chest normal Chest: Negative for tenderness Resp normal respiratory effort and clear to auscultation bilaterally Effort and Inspection: Negative for respiratory distress or pain with movement Auscultation: Negative for rhonchi, wheezes or diminished lung sounds Cardio regular rate, regular rhythm, S1 normal heart sound, S2 normal heart sound and no murmurs Peripheral Pulses: pulses 2+ throughout GI normal to inspection, nondistended, normoactive bowel sounds, soft to palpation, non-tender, non-distended and no masses Back/Spine no CVA tenderness and no thoracic nor lumbar tenderness Back/Spine Narrative: Patient is negative straight leg raises bilaterally. Deep tendon reflexes are diminished bilaterally at plus 1 out of 4. She has normal L5 extension bilaterally. She has normal sensation to light touch. No erythema or warmth noted to her back. Extremity normal to inspection General Extremety ED: Negative for edema General Extremity: Negative for edema Neuro oriented x3, CN's II-XII intact bilaterally, no sensory deficits noted and gait normal Sensorium / Orientation: awake, alert, oriented to person, oriented to place and oriented to time Motor Exam: strength 5/5 throughout and strength abnormal Psych mental status grossly normal Skin no rashes or lesions noted and no wounds MDM MDM MDM Narrative Medical decision making narrative: Patient having an acute exacerbation of her chronic back pain. I will medicate her in the department with Norflex and Toradol as well as Zofran and 1 mg Dilaudid. Patient will be given a prescription for a few Percocet and advised to follow-up with her primary care physician and surgeon. Patient also advised that she can ask for referral to pain management if her symptoms persist. At this point I do not see any red flags for cauda equina. She is advised to return if worsening pain, weakness in extremities, change in bowel or bladder function, or condition should worsen anyway. Discharge Plan Triage Chief Complaint: Back ED Provider: Ungur,Remus Dx/Rx/DC Orders Clinical Impression: Back pain Instructions: ED Back Pain (Acute or Chronic) Prescriptions: New oxycodone-acetaminophen [Percocet] 5-325 mg tablet 1 tab PO TID PRN (Reason: pain) 3 Days Qty: 10 RF: 0 No Action Airborne (ascorbate sodium) 333-1.7 mg tablet,chewable 4 tab PO DAILY RF: 0 cholecalciferol (vitamin D3) 25 mcg (1,000 unit) capsule 25 mcg PO DAILY RF: 0 tretinoin 0.05 % cream 1 applic topical QHS Qty: 20 RF: 0 lamotrigine 200 mg tablet PO RF: 0 melatonin 5 mg tablet 5 mg PO HS PRN (Reason: sleep) Qty: 30 RF: 1 paroxetine HCl 30 mg tablet 30 mg PO RF: 0 alprazolam 2 MG tablet 2 mg PO TID PRN (Reason: Anxiety) RF: 0 rosuvastatin [Crestor] 10 mg tablet 10 mg PO QHS RF: 0 (DME) [employer]tera Nebulizer System Misc See Rx Instructions .ROUTE .MEDSUPPLY Qty: 1 RF: 3 fluticasone propionate 50 mcg/actuation spray,suspension See Rx Instructions .Route PRN PRN (Reason: Nasal Congestion) Qty: 15.8 RF: 3 ipratropium-albuterol 0.5 mg-3 mg(2.5 mg base)/3 mL solution for nebulization 3 ml INHALATION Q8H PRN (Reason: shortness of breath or wheezing) Qty: 90 RF: 3 lisinopril 20 mg tablet 20 mg PO DAILY Qty: 90 RF: 3 omeprazole 40 mg capsule,delayed release(DR/EC) 40 mg PO DAILY Qty: 90 RF: 3 (DME) OneTouch Verio test strips Strip See Rx Instructions .ROUTE .MEDSUPPLY Qty: 100 RF: 3 (DME) blood-glucose meter [OneTouch Verio Flex meter] Misc See Rx Instructions .ROUTE .MEDSUPPLY Qty: 1 RF: 0 (DME) Blood Glucose Test Strip See Rx Instructions .ROUTE .MEDSUPPLY Qty: 50 RF: 3 (DME) blood-glucose meter Misc See Rx Instructions .ROUTE .MEDSUPPLY Qty: 1 RF: 0 (DME) lancets 32 gauge misc See Rx Instructions .ROUTE .MEDSUPPLY Qty: 100 RF: 3 albuterol sulfate [Ventolin HFA] 90 mcg/actuation HFA aerosol inhaler 2 puff INHALATION Q6H PRN (Reason: shortness of breath or wheezing) Qty: 8 RF: 3 budesonide-formoterol [Symbicort] 160-4.5 mcg/actuation HFA aerosol inhaler 2 puff INHALATION BID Qty: 10.2 RF: 3 methylprednisolone [Medrol (Jorge)] 4 mg tablets,dose pack 4 mg PO DAILY Qty: 21 RF: 0 baclofen 10 mg tablet 10 mg PO BID PRN (Reason: muscle spasm) Qty: 60 RF: 2 ondansetron 4 mg tablet,disintegrating 4 mg PO Q8H PRN PRN (Reason: Nausea) Qty: 30 RF: 1 Primary Care Provider: Nola Rodriguez Referrals: Nola Rodriguez MD [Primary Care Provider] - 3-5 Days Disposition Disposition: Home, Self Care
[2022-05-11] MEDS: HYDROmorphone 1 MG/ML Syringe IM (12:30)
[2022-05-11] MEDS: Ketorolac 30 MG/ML Syringe IM (12:30)
[2022-05-11] MEDS: Orphenadrine 60 MG/2 ML Ampul IM (12:30)
[2022-05-11] MEDS: Ondansetron 4 MG/2 ML Vial IM (12:30)
[2022-05-11 12:55] VITALS: BP 145/78
== END 2022-05-11 12:55 | disposition home or self-care (01) ==
PROVIDERS: Emergency Provider Emergency Medicine; PCP Internal Medicine; Visit Provider Emergency Medicine
DX: M54.50 Low back pain, unspecified (principal); E11.40 Type 2 diabetes mellitus with diabetic neuropathy, unspecified; G89.29 Other chronic pain; I10 Essential (primary) hypertension; E78.5 Hyperlipidemia, unspecified; K21.9 Gastro-esophageal reflux disease without esophagitis; F32.A Depression, unspecified; F41.9 Anxiety disorder, unspecified; F17.210 Nicotine dependence, cigarettes, uncomplicated; Z79.891 Long term (current) use of opiate analgesic; Z79.899 Other long term (current) drug therapy
CPT/HCPCS: 96372; 99282; J2405

== ENCOUNTER 2022-06-07 15:59 | Emergency (ER) | payer MEDICAID, SELFPAY ==
[2022-06-07 16:00] VITALS: BP 142/106; PULSE 115; RESP 15; TEMP 36.6; O2SAT 97; BMI 22.4
--- NOTE | 2022-06-07 18:36 | EDS_ITS ---
HPI History of Present Illness Chief Complaint: Back Informant: patient Onset/Context/Timing Onset: Month(s) Context: Gradual Onset Timing: Continuous Quality: Burning and - (Stabbing) Location: Lumbar, Buttock, Right Leg and Left Leg Worsened by: improves with Ambulation and - (Sitting) Relieved by: Nothing Associated Symptoms Associated Symptoms: Tingling, Radiation to Right Leg and Radiation to Left Leg; Negative for Numbness, Fever, Abdominal Pain, Dysuria, Unable to Ambulate, Unable to Transfer, Urinary Retention, Urinary Incontinence, Constipation or Fecal Incontinence Narrative Narrative: Patient presents with back pain that has been constant for the past 3 months. Patient states it is gradually getting worse. Patient states she sees Dr. Fuchs and Dr. Gee for her back and knee pain. Patient states that Dr. Fuchs wants to do an MRI but her insurance would not approve it without physical therapy. Patient states that Dr. Gee told her that she could not do physical therapy because of her knee. Patient states her MRI then got approved. Patient states her pain is burning and stabbing. Patient states it radiates down both lower extremities. Patient states it is worse with sitting and with ambulation. Patient admits to some tingling in her lower extremities. Patient denies any numbness or weakness. Patient denies any bowel or bladder changes. Patient denies any saddle anesthesia. Patient states that she was told to come to the emergency department to see if she could get the MRI today as well as get something for her pain. [facility] Medical History Abnormal EKG Acute exacerbation of chronic low back pain Anxiety and depression Asthma Back pain Carpal tunnel syndrome Chronic back pain Chronic headaches Chronic radicular lumbar pain Concussion Cough Encounter for screening for malignant neoplasm of lung in current smoker with 30 pack year history or greater Essential hypertension Fall GERD (gastroesophageal reflux disease) Grief Head injury Hx of emotional problems Hyperlipidemia IBS (irritable bowel syndrome) Muscle spasm Neuropathy Panic attack Post concussion syndrome Seasonal allergies Type 2 diabetes mellitus Vision problems Home Medications alprazolam 2 mg tablet 2 mg PO TID PRN Anxiety 03/24/19 [History Last Taken 08/22/20 04:30 2 MG] nebulizers (Altera Nebulizer System) #1 ea 09/06/20 [Rx Last Taken Unknown] fluticasone propionate 50 mcg/actuation nasal spray,suspension See Rx Instructions .Route PRN PRN Nasal Congestion #15.8 mL 11/16/21 [Rx Last Taken Unknown] lisinopril 20 mg tablet 20 mg PO DAILY #90 tabs 11/16/21 [Rx Last Taken Unknown] omeprazole 40 mg capsule,delayed release 40 mg PO DAILY #90 caps 11/16/21 [Rx Last Taken Unknown] blood sugar diagnostic (OneTouch Verio test strips) #100 ea 11/27/21 [Rx Last Taken Unknown] blood-glucose meter (OneTouch Verio Flex meter) #1 ea 11/27/21 [Rx Last Taken Unknown] blood sugar diagnostic (Blood Glucose Test) #50 ea 11/28/21 [Rx Last Taken Unknown] blood-glucose meter #1 ea 11/28/21 [Rx Last Taken Unknown] lancets 32 gauge #100 ea 11/28/21 [Rx Last Taken Unknown] cholecalciferol (vitamin D3) 25 mcg (1,000 unit) capsule 25 mcg PO DAILY 12/07/21 [History Last Taken Unknown] mv-min-vit C-ascorb Nb-Rdh-Eqz-herb #124 333 mg-1.7 mg chewable tablet (Airborne (ascorbate sodium)) 4 tab PO DAILY 12/07/21 [History Last Taken Unknown] tretinoin 0.05 % topical cream 1 applic topical QHS #20 grams 02/15/22 [Rx Last Taken Unknown] budesonide-formoterol HFA 160 mcg-4.5 mcg/actuation aerosol inhaler (Symbicort) 2 puff inhalation BID #10.2 grams 03/01/22 [Rx Last Taken Unknown] rosuvastatin 10 mg tablet (Crestor) 10 mg PO QHS 03/11/22 [History Last Taken Unknown] lamotrigine 200 mg tablet ea PO 03/12/22 [History Last Taken Unknown] ondansetron 4 mg disintegrating tablet 4 mg PO Q8H PRN PRN Nausea #30 tabs 03/22 [Rx Last Taken Unknown] paroxetine HCl 30 mg tablet 30 mg PO 05/08/22 [History Last Taken Unknown] ipratropium 0.5 mg-albuterol 3 mg (2.5 mg base)/3 mL nebulization soln 3 ml inhalation Q8H PRN shortness of breath or wheezing #90 mL 06/04/22 [Rx Last Taken Unknown] Ventolin HFA 90 mcg/actuation aerosol inhaler (albuterol sulfate) 2 puff inhalation Q6H PRN shortness of breath or wheezing #8 grams 06/06/22 [Rx Last Taken Unknown] ondansetron 4 mg disintegrating tablet 4 mg PO Q8H PRN PRN Nausea #10 tabs 06/07/22 [Rx Last Taken Unknown] oxycodone-acetaminophen 5 mg-325 mg tablet 1 tab PO Q6H PRN PRN Pain 3 days #12 TABLETS 06/07/22 [Rx Last Taken Unknown] Allergy/AdvReac Type Severity Reaction Status Date / Time red dye Allergy Severe swelling Verified 06/07/22 16:02 carbidopa Allergy Unknown Verified 06/07/22 16:02 gabapentin Allergy Unknown Verified 06/07/22 16:02 latex Allergy Rash Verified 06/07/22 16:02 quetiapine fumarate Allergy Other Verified 06/07/22 16:02 [From Seroquel] topiramate [From Topamax] Allergy Hives Verified 06/07/22 16:02 tramadol HCl [From Ultram] Allergy Other Verified 06/07/22 16:02 amitriptyline AdvReac Vomiting Verified 06/07/22 16:02 aspirin AdvReac Upset Verified 06/07/22 16:02 Stomach codeine AdvReac Vomiting Verified 06/07/22 16:02 cyclobenzaprine HCl AdvReac Upset Verified 06/07/22 16:02 [From Flexeril] Stomach etodolac [Etodolac] AdvReac Vomiting Verified 06/07/22 16:02 hydrocodone bitartrate AdvReac Vomiting Verified 06/07/22 16:02 [From Vicodin] metformin AdvReac Diarrhea Verified 06/07/22 16:02 metoclopramide [From Reglan] AdvReac Other Verified 06/07/22 16:02 naproxen [From Naprosyn] AdvReac Upset Verified 06/07/22 16:02 Stomach propoxyphene napsylate AdvReac Vomiting Verified 06/07/22 16:02 [From Darvocet-N 100] Family History Mother Malignant hyperthermia due to anesthesia Angina pectoris Arthritis Bowel disease Myocardial infarction Heart disease Hypertension High cholesterol CVA (cerebral vascular accident) Father Asthma Arthritis Myocardial infarction Heart disease High cholesterol Hypertension CVA (cerebral vascular accident) Leukemia Diabetes Grandmother Lung cancer Grandfather Diabetes Grandmother Diabetes Surgical History History of History of cholecystectomy History of orthopedic surgery History of partial hysterectomy History of total hysterectomy S/P knee surgery Social History Smoking Status: Current every day smoker tobacco type: cigarettes Tobacco: How many years used: 46 Electronic Cigarette Use: not used how long ago did patient quit smokin+ pack year smoking history (1.5-2 ppd x 32 years, 3 ppd x 14 years). second hand exposure: Yes quit status: considering quitting counseling given: provider counseling alcohol intake: never substance use type: does not use what type of physical activity do you participate in: walking and bicycling ROS ROS ED Constitutional Constitutional ED: Denies chills or fever(s) Eyes Eyes: Denies blurry vision or change in vision ENT ENT ED: Denies rhinorrhea or sore throat Cardiovascular Cardiovascular: Denies chest pain or palpitations Respiratory/Chest Respiratory/Chest: Denies cough or dyspnea Gastrointestinal Gastrointestinal: Reports nausea and vomiting Genitourinary Genitourinary ED: Denies dysuria or hematuria Musculoskeletal Musculoskeletal: Reports back pain; Denies neck pain Integumentary Denies abscess or rash Neurologic Neurologic: Reports headache(s); Denies weakness Allergic/Immunologic Allergic/Immunologic ED: Denies mouth swelling or urticaria EXAM Physical Exam Const Vital Signs: 06/07/22 16:00 Temperature 98 F Temperature Source Temporal Pulse Rate 115 H Respiratory Rate 15 Blood Pressure 142/106 H Blood Pressure Mean 118 Pulse Ox 97 Oxygen Delivery Method Room Air Positive well nourished and well developed General Appearance ED: well developed and NAD HEENT Reports moist mucous membranes Neck supple and no JVD Back/Spine Back/Spine Narrative: There is tenderness over the lumbar spine and paraspinal muscles. There is no bony crepitance or step-off. Range of motion was limited in all motions of the lumbar spine secondary to pain. Strength is 5/5 bilaterally in the lower extremities. There are no sensory deficits noted. Deep tendon reflexes are 2+/4 bilaterally in the lower extremities. Pedal pulses are equal bilaterally. Lumbar Spine / Lower Back: ROM limited and straight leg raise negative bilaterally Extremity normal to inspection General Extremety ED: Negative for edema or tenderness General Extremity: Negative for edema Neuro oriented x3 and no sensory deficits noted Sensorium / Orientation: alert Motor Exam: strength 5/5 throughout Deep Tendon Reflexes: Rt Patellar (L4): 2+, Lt Patellar (L4): 2+, Rt Ankle (S1): 2+ and Lt Ankle (S1): 2+ Deep Tendon Reflexes Back: Rt Patellar (L4): 2+, Lt Patellar (L4): 2+, Rt Ankle (S1): 2+ and Lt Ankle (S1): 2+ Psych mental status grossly normal Skin no rashes or lesions noted MDM MDM MDM Narrative Medical decision making narrative: Patient was given injections of Zofran, Toradol, and morphine here. Patient was given a prescription for a short course of Percocet. Patient was instructed to follow-up with her MRI as scheduled. Patient was also instructed to follow-up with her spine surgeon in 3 to 5 days for further evaluation. Patient understood and was agreeable with the plan. All questions were answered. Discharge Plan Triage Chief Complaint: Back ED Provider: Kevin Traore Dx/Rx/DC Orders Clinical Impression: Acute exacerbation of chronic low back pain, Tobacco dependence Instructions: ED Back Pain (Acute or Chronic), ED Chronic Pain Prescriptions: New oxycodone-acetaminophen [oxycodone-acetaminophen] 1 TABLET tablet 1 tab PO Q6H PRN PRN (Reason: Pain) 3 Days Qty: 12 0RF ondansetron [ondansetron] 4 MG tablet 4 mg PO Q8H PRN PRN (Reason: Nausea) Qty: 10 0RF No Action Airborne (ascorbate sodium) 333-1.7 mg tablet,chewable 4 tab PO DAILY cholecalciferol (vitamin D3) 25 mcg (1,000 unit) capsule 25 mcg PO DAILY tretinoin 0.05 % cream 1 applic topical QHS Qty: 20 0RF lamotrigine 200 mg tablet PO Label Comments: take 1 tablet by mouth twice a day paroxetine HCl 30 mg tablet 30 mg PO Label Comments: take 2 tablets by mouth once daily alprazolam 2 MG tablet 2 mg PO TID PRN (Reason: Anxiety) rosuvastatin [Crestor] 10 mg tablet 10 mg PO QHS (DME) Altera Nebulizer System [facility] See Rx Instructions .ROUTE .MEDSUPPLY Qty: 1 3RF Rx Instructions: nebulizer and supplies fluticasone propionate 50 mcg/actuation spray,suspension See Rx Instructions .Route PRN PRN (Reason: Nasal Congestion) Qty: 15.8 3RF Rx Instructions: USE 2 SPRAYS IN EACH NOSTRIL ONCE DAILY lisinopril 20 mg tablet 20 mg PO DAILY Qty: 90 3RF omeprazole 40 mg capsule,delayed release(DR/EC) 40 mg PO DAILY Qty: 90 3RF (DME) OneTouch Verio test strips Strip See Rx Instructions .ROUTE .MEDSUPPLY Qty: 100 3RF Rx Instructions: Check blood sugar daily (DME) blood-glucose meter [OneTouch Verio Flex meter] [facility] [place] See Rx Instructions .ROUTE .MEDSUPPLY Qty: 1 0RF Rx Instructions: As directed - Check blood sugar daily (DME) Blood Glucose Test Strip See Rx Instructions .ROUTE .MEDSUPPLY Qty: 50 3RF Rx Instructions: use to monitor blood sugar daily for type 2 DM (DME) blood-glucose meter [facility] [place] See Rx Instructions .ROUTE .MEDSUPPLY Qty: 1 0RF Rx Instructions: use to monitor blood sugar daily for type 2 DM (DME) lancets 32 gauge mis See Rx Instructions .ROUTE .MEDSUPPLY Qty: 100 3RF Rx Instructions: use to check blood sugar for type 2 DM budesonide-formoterol [Symbicort] 160-4.5 mcg/actuation HFA aerosol inhaler 2 puff INHALATION BID Qty: 10.2 3RF ondansetron 4 mg tablet,disintegrating 4 mg PO Q8H PRN PRN (Reason: Nausea) Qty: 30 1RF ipratropium-albuterol 0.5 mg-3 mg(2.5 mg base)/3 mL solution for nebulization 3 ml INHALATION Q8H PRN (Reason: shortness of breath or wheezing) Qty: 90 3RF albuterol sulfate [Ventolin HFA] 90 mcg/actuation HFA aerosol inhaler 2 puff INHALATION Q6H PRN (Reason: shortness of breath or wheezing) Qty: 8 0RF Primary Care Provider: Nola Rodriguez Referrals: Nola Rodriguez MD [Primary Care Provider] - 5-7 Days Garcia Fuchs DO [STAFF PHYSICIAN] - 3-5 Days Disposition Disposition: Home, Self Care
[2022-06-07] MEDS: Ketorolac 60 MG/2 ML Vial IM (18:59)
[2022-06-07] MEDS: Morphine 4 MG/ML Syringe IM (18:59)
[2022-06-07] MEDS: Ondansetron ODT 4 MG Tablet PO (18:59)
[2022-06-07 19:17] VITALS: BP 138/75; PULSE 80
== END 2022-06-07 19:23 | disposition home or self-care (01) ==
PROVIDERS: Emergency Provider Emergency Medicine; PCP Internal Medicine; Visit Provider Emergency Medicine
DX: M54.50 Low back pain, unspecified (principal); G89.29 Other chronic pain; F17.210 Nicotine dependence, cigarettes, uncomplicated
CPT/HCPCS: 96372; 99283

== ENCOUNTER → 2022-06-12 | Outpatient (CLI) | payer MEDICAID, SELFPAY ==
--- NOTE | 2022-06-12 17:09 | MRI_ITS ---
STUDY: MRI LUMBAR SPINE WITHOUT CONTRAST REASON FOR EXAM: Female, 56 years old. radicular pain TECHNIQUE: Standardized fat and water weighted pulse sequences were obtained in the sagittal and axial planes. COMPARISON: None FINDINGS: T12-L1: Normal endplates. Normal disc height, hydration and morphology. Normal bilateral facet joints. Normal central canal and bilateral lateral recesses. Normal bilateral intervertebral neural foramina. Small interosseous hemangioma noted within T12 vertebral body Normal lumbar lordosis. There is no substantial scoliosis. Normal conus medullaris that terminates at T12-L1 L1-2: Normal endplates. Normal disc height, hydration and morphology. Normal bilateral facet joints. Normal central canal and bilateral lateral recesses. Normal bilateral intervertebral neural foramina. L2-3: Normal endplates. Normal disc height, hydration and morphology. Normal bilateral facet joints. Normal central canal and bilateral lateral recesses. Normal bilateral intervertebral neural foramina. L3-4: Normal endplates. Normal disc height, desiccation and mild bulging disc osteophyte complex. Facet arthropathy with thickening of ligamenta flava and large left-sided synovial cyst measuring approximately 10 x 11 mm.. Mild narrowing of the central canal. Severe left lateral recess and neuroforaminal stenosis and moderate right neuroforaminal encroachment L4-5: Grade 1 spondylolisthesis Normal endplates. Normal disc height, desiccation and mild bulging disc osteophyte complex with small central disc extrusion with superior migration of disc fragment. Facet arthropathy and thickening of ligamenta flava more pronounced on the left.. Mild to moderate narrowing of central canal.. Moderate right lateral recess and severe left lateral recess stenosis. Severe bilateral neuroforaminal stenosis exaggerated by shortened pedicles L5-S1: Normal endplates. Normal disc height, hydration and minor annular bulge.. Mild facet arthropathy.. Normal central canal and bilateral lateral recesses. Mild bilateral neuroforaminal encroachment Normal visualized sacral ala. Normal visualized paraspinous soft tissue structures. MRI/Spine Lumbar (Routine) IMPRESSION: No acute fracture or other significant bony pathology.. Relatively severe spinal stenosis at L3-4 and L4-5 secondary to disc disease facet arthropathy and thickening of ligamenta flava. Other findings as above Electronically Signed: Orlando Chow MD at 19:29 EDT ,
== END | disposition home or self-care (01) ==
LOC: MRI 17:09
PROVIDERS: PCP Internal Medicine; Visit Provider Orthopaedic Surgery
DX: M43.16 Spondylolisthesis, lumbar region (principal); M54.40 Lumbago with sciatica, unspecified side; G89.29 Other chronic pain
CPT/HCPCS: 72148

== ENCOUNTER 2022-06-28 11:39 | Emergency (ER) | payer MEDICAID, SELFPAY ==
[2022-06-28 11:42] VITALS: BP 138/96; PULSE 99; RESP 20; TEMP 35.9; O2SAT 97; BMI 25.0
--- NOTE | 2022-06-28 12:06 | EDS_ITS ---
HPI <ANDREA Boston - Last Filed: 06/28/22 12:26> History of Present Illness Chief Complaint: Back Narrative Narrative: 56-year-old female with history of COPD, pretension, chronic back pain presents to the emergency department with acute on chronic back pain. Patient has been seen by her PCP, orthopedist, she currently is waiting to see pain management to get epidural shots for pain management. She states that she has been having worsening pain, burning down both legs which is consistent with her chronic pain. She did have a fall 2 days ago however it is minor, she did bump her right shoulder however she does not believe that she needs any imaging. She states she is here today to have pain control as well as some nausea control secondary to the pain. She denies any bowel or bladder incontinence, denies any fever or chills. PFSH <ANDREA Boston - Last Filed: 06/28/22 12:26> [facility] Medical History Abnormal EKG Acute exacerbation of chronic low back pain Anxiety and depression Asthma Back pain Carpal tunnel syndrome Chronic back pain Chronic headaches Chronic radicular lumbar pain Concussion Cough Encounter for screening for malignant neoplasm of lung in current smoker with 30 pack year history or greater Essential hypertension Fall GERD (gastroesophageal reflux disease) Grief Head injury Hx of emotional problems Hyperlipidemia IBS (irritable bowel syndrome) Muscle spasm Neuropathy Panic attack Post concussion syndrome Seasonal allergies Type 2 diabetes mellitus Vision problems Home Medications alprazolam 2 mg tablet 2 mg PO TID PRN Anxiety 03/24/19 [History Last Taken 08/22/20 04:30 2 MG] nebulizers (Altera Nebulizer System) #1 ea 09/06/20 [Rx Last Taken Unknown] fluticasone propionate 50 mcg/actuation nasal spray,suspension See Rx Instructions .Route PRN PRN Nasal Congestion #15.8 mL 11/16/21 [Rx Last Taken Un known] lisinopril 20 mg tablet 20 mg PO DAILY #90 tabs 11/16/21 [Rx Last Taken Unknown] omeprazole 40 mg capsule,delayed release 40 mg PO DAILY #90 caps 11/16/21 [Rx Last Taken Unknown] blood sugar diagnostic ([employer] Verio test strips) #100 ea 11/27/21 [Rx Last Taken Unknown] blood-glucose meter ([employer] Verio Flex Meter) #1 ea 11/27/21 [Rx Last Taken Unknown] blood sugar diagnostic (Blood Glucose Test strips) #50 ea 11/28/21 [Rx Last Taken Unknown] blood-glucose meter #1 ea 11/28/21 [Rx Last Taken Unknown] lancets 32 gauge #100 ea 11/28/21 [Rx Last Taken Unknown] cholecalciferol (vitamin D3) 25 mcg (1,000 unit) capsule 25 mcg PO DAILY 12/07/21 [History Last Taken Unknown] mv-min-vit C-ascorb Ko-Yqm-Ama-herb #124 333 mg-1.7 mg chewable tablet (Airborne (ascorbate sodium)) 4 tab PO DAILY 12/07/21 [History Last Taken Unknown] tretinoin 0.05 % topical cream 1 applic topical QHS #20 grams 02/15/22 [Rx Last Taken Unknown] budesonide-formoterol HFA 160 mcg-4.5 mcg/actuation aerosol inhaler (Symbicort) 2 puff inhalation BID #10.2 grams 03/01/22 [Rx Last Taken Unknown] rosuvastatin 10 mg tablet (Crestor) 10 mg PO QHS 03/11/22 [History Last Taken Unknown] lamotrigine 200 mg tablet ea PO 03/12/22 [History Last Taken Unknown] paroxetine HCl 30 mg tablet 30 mg PO 05/08/22 [History Last Taken Unknown] ipratropium 0.5 mg-albuterol 3 mg (2.5 mg base)/3 mL nebulization soln 3 ml inhalation Q8H PRN shortness of breath or wheezing #90 mL 06/04/22 [Rx Last Taken Unknown] Ventolin HFA 90 mcg/actuation aerosol inhaler (albuterol sulfate) 2 puff inhalation Q6H PRN shortness of breath or wheezing #8 grams 06/06/22 [Rx Last Taken Unknown] ondansetron 4 mg disintegrating tablet 4 mg PO Q8H PRN PRN Nausea #10 tabs 06/07/22 [Rx Last Taken Unknown] oxycodone-acetaminophen 5 mg-325 mg tablet 1 tab PO Q6H PRN PRN Pain 3 days #12 TABLETS 06/07/22 [Rx Last Taken Unknown] ondansetron 4 mg disintegrating tablet 4 mg PO Q8H PRN nausea and vomiting #10 tabs 06/28/22 [Rx Last Taken Unknown] oxycodone-acetaminophen 5 mg-325 mg tablet (Percocet) 1 tab PO Q6H PRN pain 2 days #6 tabs 06/28/22 [Rx Last Taken Unknown] Allergy/AdvReac Type Severity Reaction Status Date / Time red dye Allergy Severe swelling Verified 06/28/22 11:39 carbidopa Allergy Unknown Verified 06/28/22 11:39 gabapentin Allergy Unknown Verified 06/28/22 11:39 latex Allergy Rash Verified 06/28/22 11:39 quetiapine fumarate Allergy Other Verified 06/28/22 11:39 [From Seroquel] topiramate [From Topamax] Allergy Hives Verified 06/28/22 11:39 tramadol HCl [From Ultram] Allergy Other Verified 06/28/22 11:39 amitriptyline AdvReac Vomiting Verified 06/28/22 11:39 aspirin AdvReac Upset Verified 06/28/22 11:39 Stomach codeine AdvReac Vomiting Verified 06/28/22 11:39 cyclobenzaprine HCl AdvReac Upset Verified 06/28/22 11:39 [From Flexeril] Stomach etodolac [Etodolac] AdvReac Vomiting Verified 06/28/22 11:39 hydrocodone bitartrate AdvReac Vomiting Verified 06/28/22 11:39 [From Vicodin] metformin AdvReac Diarrhea Verified 06/28/22 11:39 metoclopramide [From Reglan] AdvReac Other Verified 06/28/22 11:39 naproxen [From Naprosyn] AdvReac Upset Verified 06/28/22 11:39 Stomach propoxyphene napsylate AdvReac Vomiting Verified 06/28/22 11:39 [From Darvocet-N 100] Family History Mother Malignant hyperthermia due to anesthesia Angina pectoris Arthritis Bowel disease Myocardial infarction Heart disease Hypertension High cholesterol CVA (cerebral vascular accident) Father Asthma Arthritis Myocardial infarction Heart disease High cholesterol Hypertension CVA (cerebral vascular accident) Leukemia Diabetes Grandmother Lung cancer Grandfather Diabetes Grandmother Diabetes Surgical History History of History of cholecystectomy History of orthopedic surgery History of partial hysterectomy History of total hysterectomy S/P knee surgery Social History Smoking Status: Current every day smoker tobacco type: cigarettes Tobacco: How many years used: 46 Electronic Cigarette Use: not used how long ago did patient quit smokin+ pack year smoking history (1.5-2 ppd x 32 years, 3 ppd x 14 years). second hand exposure: Yes quit status: considering quitting counseling given: provider counseling alcohol intake: never substance use type: does not use what type of physical activity do you participate in: walking and bicycling ROS <ANDREA Boston - Last Filed: 06/28/22 12:26> ROS ED ROS Narrative Constitutional: Negative for fever, chills, weight loss, weakness Eyes: Negative for vision loss, vision change, double vision ENT: Negative for any sore throat, ear pain, congestion Cardiovascular: Negative for any chest pain, tightness, palpitations Respiratory: Negative for any cough, sputum production, hemoptysis, dyspnea, dyspnea on exertion, orthopnea Gastrointestinal: Negative for any abdominal pain, nausea, vomiting, diarrhea, constipation, blood in stool, blood in vomit : Negative for any urinary frequency, dysuria, retention, blood in urine Muscle skeletal: Negative for any muscle joint pain, stiffness, myalgias, arthralgias, neck pain. Positive for lower back pain that radiates down bilateral legs Neurological: Negative for any headache, syncope, numbness or tingling, dizziness Skin: Negative for any rashes, lumps, itching, abrasions, lacerations Psychiatric: Negative for any depression, anxiety, stress, suicidal ideation, homicidal ideation Hematologic: Negative for any easy bruising, excessive bruising, easy bleeding Allergies: Negative for any eczema, hives, rash EXAM <ANDREA Boston - Last Filed: 06/28/22 12:26> Physical Exam Narrative Exam Narrative: Vital signs reviewed. HEET: Head normocephalic atraumatic, TMs clear bilaterally. Posterior pharynx is clear, moist mucous membranes. Nares clear bilaterally. Neck: Supple with no lymphadenopathy or tenderness. No signs of meningismus, negative jolt sign. Cardiac: Regular rate and rhythm no murmurs gallops or rubs, equal peripheral pulses bilaterally. Respiratory: Lungs clear to auscultation bilaterally. No chest tenderness. Abdomen: Soft, nontender, nondistended. No abdominal bruit or pulsatile masses. No hepatosplenomegaly Extremities: No peripheral edema, no signs of gross trauma or deformity. Active full range of motion of all extremities. Patient has full range of motion of bilateral lower extremities, negative for any neurological focal deficits. Patient does state that when she walks he does feel a tingling sensation. +2 pedal pulses. Negative for any foot drop. Negative for any red flag signs. Neuro: Cranial nerves II through XII intact, no focal neurological deficits. Skin: Clean dry and intact with no rash, purpura, petechiae, vesicles or p ustules. Backs/flank: No CVA tenderness, no midline spinal tenderness, no deformity. Psych: Normal mood and affect. No SI, HI or acute psychosis. Const Vital Signs: 06/28/22 11:42 Temperature 96.7 F L Temperature Source Temporal Pulse Rate 99 Respiratory Rate 20 H Blood Pressure 138/96 H Blood Pressure Mean 110 Pulse Ox 97 Oxygen Delivery Method Room Air Positive well nourished and well developed General Appearance ED: well developed <Dr. Kevin Traore DO - Last Filed: 06/28/22 12:19> Physical Exam Const Vital Signs: 06/28/22 11:42 Temperature 96.7 F L Temperature Source Temporal Pulse Rate 99 Respiratory Rate 20 H Blood Pressure 138/96 H Blood Pressure Mean 110 Pulse Ox 97 Oxygen Delivery Method Room Air MDM <ANDREA Boston - Last Filed: 06/28/22 12:26> [facility] Treatment and Re-Evaluation Narrative: Patient appears well, patient appears nontoxic, vital signs are stable. Patient presents to the emergency department with complaints of acute on chronic low back pain that radiates down her legs. Patient physical examination is consistent with chronic back pain, there is no evidence of any red flag signs which is spinal abscess, cauda equina. Patient does have multiple allergies, patient was given IM morphine, Toradol, by mouth Zofran. Patient had relief of symptoms with these medications. Patient will follow up outpatient. Patient will be given a prescription for Zofran, as well as 6 Percocet tablets, I did talk with her about these prescriptions, this is her second prescription this month of May. She needs to follow-up with pain management, coming to the emergency department for narcotics is not a solution. She verbally understands. <Dr. Kevin Traore, DO - Last Filed: 06/28/22 12:19> [facility] Narrative Medical decision making narrative: I have personally performed a face to face assessment of the patient and have reviewed the SHAAN Note. I performed a substantive portion of the visit including all aspects of the following. My richardson findings include: History: Patient presents with exacerbation of chronic back pain that became worse today. Patient states she has been falling frequently at home because of the pain. Patient denies any radiation of the pain. Patient denies any bowel or bladder changes. Patient denies any saddle anesthesia. Patient had a recent MRI which showed a cyst. Patient was referred to pain management for facet injections. Patient states she is unable to see them until 22 July. Exam: Vital signs are stable. Patient is afebrile. Patient is in no acute distress. There is tenderness over the lower lumbar spine and paraspinal muscles. There is no bony crepitance or step-off. Range of motion was limited in all motion secondary to pain and effort. Strength is 5/5 bilaterally in the lower extremities. There are no sensory deficits noted. Medical Decision Making: Patient was given an injection of morphine, Toradol, and Zofran here. Patient was instructed to use ice to the area. Patient was given prescriptions for [place] and Zofran. Patient was instructed to follow-up with her primary care physician in 5 to 7 days. Patient was also instructed to follow-up with a pain management physician. Patient understands and is agreeable with plan. All questions were answered. Discharge Plan Triage Chief Complaint: Back ED Midlevel Provider: Librado Almaraz ED Provider: Kevin Traore Dx/Rx/DC Orders Clinical Impression: Chronic back pain Instructions: ED Back Pain (Acute or Chronic) Prescriptions: New oxycodone-acetaminophen [Percocet] 5-325 mg tablet 1 tab PO Q6H PRN (Reason: pain) 2 Days Qty: 6 0RF ondansetron 4 mg tablet,disintegrating 4 mg PO Q8H PRN (Reason: nausea and vomiting) Qty: 10 0RF No Action Airborne (ascorbate sodium) 333-1.7 mg tablet,chewable 4 tab PO DAILY cholecalciferol (vitamin D3) 25 mcg (1,000 unit) capsule 25 mcg PO DAILY tretinoin 0.05 % cream 1 applic topical QHS Qty: 20 0RF lamotrigine 200 mg tablet PO Label Comments: take 1 tablet by mouth twice a day paroxetine HCl 30 mg tablet 30 mg PO Label Comments: take 2 tablets by mouth once daily alprazolam 2 MG tablet 2 mg PO TID PRN (Reason: Anxiety) rosuvastatin [Crestor] 10 mg tablet 10 mg PO QHS oxycodone-acetaminophen [oxycodone-acetaminophen] 1 TABLET tablet 1 tab PO Q6H PRN PRN (Reason: Pain) 3 Days Qty: 12 0RF ondansetron [ondansetron] 4 MG tablet 4 mg PO Q8H PRN PRN (Reason: Nausea) Qty: 10 0RF (DME) Altera Nebulizer System [facility] [place] See Rx Instructions .ROUTE .MEDSUPPLY Qty: 1 3RF Rx Instructions: nebulizer and supplies fluticasone propionate 50 mcg/actuation spray,suspension See Rx Instructions .Route PRN PRN (Reason: Nasal Congestion) Qty: 15.8 3RF Rx Instructions: USE 2 SPRAYS IN EACH NOSTRIL ONCE DAILY lisinopril 20 mg tablet 20 mg PO DAILY Qty: 90 3RF omeprazole 40 mg capsule,delayed release(DR/EC) 40 mg PO DAILY Qty: 90 3RF (DME) OneTouch Verio test strips Strip See Rx Instructions .ROUTE .MEDSUPPLY Qty: 100 3RF Rx Instructions: Check blood sugar daily (DME) blood-glucose meter [OneTouch Verio Flex meter] [facility] [place] See Rx Instructions .ROUTE .MEDSUPPLY Qty: 1 0RF Rx Instructions: As directed - Check blood sugar daily (DME) Blood Glucose Test Strip See Rx Instructions .ROUTE .MEDSUPPLY Qty: 50 3RF Rx Instructions: use to monitor blood sugar daily for type 2 DM (DME) blood-glucose meter [facility] [place] See Rx Instructions .ROUTE .MEDSUPPLY Qty: 1 0RF Rx Instructions: use to monitor blood sugar daily for type 2 DM (DME) lancets 32 gauge [facility] [place] Rx Instructions .ROUTE .MEDSUPPLY Qty: 100 3RF Rx Instructions: use to check blood sugar for type 2 DM budesonide-formoterol [Symbicort] 160-4.5 mcg/actuation HFA aerosol inhaler 2 puff INHALATION BID Qty: 10.2 3RF ipratropium-albuterol 0.5 mg-3 mg(2.5 mg base)/3 mL solution for nebulization 3 ml INHALATION Q8H PRN (Reason: shortness of breath or wheezing) Qty: 90 3RF albuterol sulfate [Ventolin HFA] 90 mcg/actuation HFA aerosol inhaler 2 puff INHALATION Q6H PRN (Reason: shortness of breath or wheezing) Qty: 8 0RF Primary Care Provider: Nola Rodriguez Referrals: Nola Rodriguez MD [Primary Care Provider] - Print Language: German Disposition Disposition: Home, Self Care
[2022-06-28] MEDS: Ondansetron ODT 4 MG Tablet 8 MG PO (12:18)
[2022-06-28] MEDS: Ketorolac 15 MG/ML Vial IM (12:18)
[2022-06-28] MEDS: Morphine 4 MG/ML Syringe IM (12:19)
== END 2022-06-28 12:49 | disposition home or self-care (01) ==
PROVIDERS: Emergency Provider Emergency Medicine; PCP Internal Medicine; Visit Provider Emergency Medicine
DX: G89.29 Other chronic pain (principal); J44.9 Chronic obstructive pulmonary disease, unspecified; E11.40 Type 2 diabetes mellitus with diabetic neuropathy, unspecified; M54.9 Dorsalgia, unspecified; I10 Essential (primary) hypertension; E78.5 Hyperlipidemia, unspecified; F17.210 Nicotine dependence, cigarettes, uncomplicated; Z79.899 Other long term (current) drug therapy
CPT/HCPCS: 96372; 99283

== ENCOUNTER 2022-07-24 13:02 | Emergency (ER) | payer MEDICAID, SELFPAY ==
[2022-07-24 13:04] VITALS: BP 129/105; PULSE 96; RESP 14; TEMP 36.5; O2SAT 99; BMI 26.7
--- NOTE | 2022-07-24 14:18 | EDS_ITS ---
HPI History of Present Illness Chief Complaint: Lower Extremity Injury Informant: patient Narrative Narrative: Presenting worsening sciatica symptoms over the past few months. Patient states started after her mother . Pain primary down the right leg buttocks. No loss of bowel or bladder control. She states will have severe pain in her legs giving out causing her to fall. No significant injuries from this. She is currently using a walker. PCP has referred her to neurosurgery Dr. Llanos who was able to order an MRI performed a few weeks ago. She states there was surgical options however she did want a conservative treatment initially first. She was referred to pain management. She saw them yesterday states there is plans for spinal injections however awaiting insurance approval. Since yesterday increasing pain causing vomiting today. No abdominal pain. She called back the pain office was referred here for symptom control. She has been on neuropathic medicines in the past. She cannot tolerate Vicodin or oxycodone. She is tolerated morphine previously. She states currently has help from a good friend at her home who is a nurse. She does not feel she needs to be admitted to rehab. Reviewing records, MRI 06/12 noticed severe stenosis L3-L4, L4-L5 with facet arthropathy and thickening ligamentum flavum. No significant disc bulging. Prior similar symptoms: Yes PFSH PFSH Medical History Abnormal EKG Acute exacerbation of chronic low back pain Anxiety and depression Asthma Back pain Carpal tunnel syndrome Chronic back pain Chronic headaches Chronic radicular lumbar pain Concussion Cough Encounter for screening for malignant neoplasm of lung in current smoker with 30 pack year history or greater Essential hypertension Fall GERD (gastroesophageal reflux disease) Grief Head injury Hx of emotional problems Hyperlipidemia IBS (irritable bowel syndrome) Muscle spasm Neuropathy Panic attack Post concussion syndrome Seasonal allergies Type 2 diabetes mellitus Vision problems Home Medications alprazolam 2 mg tablet 2 mg PO TID PRN Anxiety 03/24/19 [History Last Taken 08/22/20 04:30 2 MG] nebulizers (Altera Nebulizer System) #1 ea 09/06/20 [Rx Last Taken Unknown] fluticasone propionate 50 mcg/actuation nasal spray,suspension See Rx Instructions .Route PRN PRN Nasal Congestion #15.8 mL 11/16/21 [Rx Last Taken Unknown] omeprazole 40 mg capsule,delayed release 40 mg PO DAILY #90 caps 11/16/21 [Rx Last Taken Unknown] blood sugar diagnostic (OneTouch Verio test strips) #100 ea 11/27/21 [Rx Last Taken Unknown] blood-glucose meter (OneTouch Verio Flex Meter) #1 ea 11/27/21 [Rx Last Taken Unknown] blood sugar diagnostic (Blood Glucose Test strips) #50 ea 11/28/21 [Rx Last Taken Unknown] blood-glucose meter #1 ea 11/28/21 [Rx Last Taken Unknown] lancets 32 gauge #100 ea 11/28/21 [Rx Last Taken Unknown] cholecalciferol (vitamin D3) 25 mcg (1,000 unit) capsule 25 mcg PO DAILY 12/07/21 [History Last Taken Unknown] mv-min-vit C-ascorb Um-Ars-Vyt-herb #124 333 mg-1.7 mg chewable tablet (Airborne (ascorbate sodium)) 4 tab PO DAILY 12/07/21 [History Last Taken Unknown] tretinoin 0.05 % topical cream 1 applic topical QHS #20 grams 02/15/22 [Rx Last Taken Unknown] rosuvastatin 10 mg tablet (Crestor) 10 mg PO QHS 03/11/22 [History Last Taken Unknown] lamotrigine 200 mg tablet 200 mg PO BID 03/12/22 [History Last Taken Unknown] paroxetine HCl 30 mg tablet 30 mg PO DAILY 05/08/22 [History Last Taken Unknown] Ventolin HFA 90 mcg/actuation aerosol inhaler (albuterol sulfate) 2 puff inhalation Q6H PRN shortness of breath or wheezing #8 grams 06/28/22 [Rx Last Taken Unknown] ondansetron 4 mg disintegrating tablet 4 mg PO Q8H PRN nausea and vomiting #10 tabs 06/28/22 [Rx Last Taken Unknown] budesonide-formoterol HFA 160 mcg-4.5 mcg/actuation aerosol inhaler (Symbicort) 2 puff inhalation BID #10.2 grams 07/04/22 [Rx Last Taken Unknown] lisinopril 30 mg tablet 30 mg PO DAILY #90 tabs 07/04/22 [Rx Last Taken Unknown] ipratropium 0.5 mg-albuterol 3 mg (2.5 mg base)/3 mL nebulization soln 3 ml inhalation Q8H PRN shortness of breath or wheezing #90 mL 07/22/22 [Rx Last Taken Unknown] ondansetron 4 mg disintegrating tablet 4 mg PO Q6H PRN nausea and vomiting #10 tabs 07/24/22 [Rx Last Taken Unknown] Allergy/AdvReac Type Severity Reaction Status Date / Time red dye Allergy Severe swelling Verified 07/24/22 13:03 carbidopa Allergy Unknown Verified 07/24/22 13:03 gabapentin Allergy Unknown Verified 07/24/22 13:03 latex Allergy Rash Verified 07/24/22 13:03 quetiapine fumarate Allergy Other Verified 07/24/22 13:03 [From Seroquel] topiramate [From Topamax] Allergy Hives Verified 07/24/22 13:03 tramadol HCl [From Ultram] Allergy Other Verified 07/24/22 13:03 amitriptyline AdvReac Vomiting Verified 07/24/22 13:03 aspirin AdvReac Upset Verified 07/24/22 13:03 Stomach codeine AdvReac Vomiting Verified 07/24/22 13:03 cyclobenzaprine HCl AdvReac Upset Verified 07/24/22 13:03 [From Flexeril] Stomach etodolac [Etodolac] AdvReac Vomiting Verified 07/24/22 13:03 hydrocodone bitartrate AdvReac Vomiting Verified 07/24/22 13:03 [From Vicodin] metformin AdvReac Diarrhea Verified 07/24/22 13:03 metoclopramide [From Reglan] AdvReac Other Verified 07/24/22 13:03 naproxen [From Naprosyn] AdvReac Upset Verified 07/24/22 13:03 Stomach propoxyphene napsylate AdvReac Vomiting Verified 07/24/22 13:03 [From Darvocet-N 100] Family History Mother Malignant hyperthermia due to anesthesia Angina pectoris Arthritis Bowel disease Myocardial infarction Heart disease Hypertension High cholesterol CVA (cerebral vascular accident) Father Asthma Arthritis Myocardial infarction Heart disease High cholesterol Hypertension CVA (cerebral vascular accident) Leukemia Diabetes Grandmother Lung cancer Grandfather Diabetes Grandmother Diabetes Surgical History History of History of cholecystectomy History of orthopedic surgery History of partial hysterectomy History of total hysterectomy S/P knee surgery Social History Smoking Status: Current every day smoker tobacco type: cigarettes Tobacco: How many years used: 46 Electronic Cigarette Use: not used how long ago did patient quit smokin+ pack year smoking history (1.5-2 ppd x 32 years, 3 ppd x 14 years). second hand exposure: Yes quit status: considering quitting counseling given: provider counseling alcohol intake: never substance use type: does not use what type of physical activity do you participate in: walking and bicycling ROS ROS ED Constitutional Constitutional ED: Denies chills, fever(s) or sweats Eyes Eyes: Denies change in vision ENT ENT ED: Denies dysphagia or sore throat Cardiovascular Cardiovascular: Denies chest pain, leg edema, palpitations or racing heartbeat Respiratory/Chest Respiratory/Chest: Denies cough, dyspnea or dyspnea on exertion Gastrointestinal Gastrointestinal: Reports nausea and vomiting; Denies abdominal pain or diarrhea Genitourinary Genitourinary ED: Denies dysuria, hematuria or urinary frequency Musculoskeletal Musculoskeletal: Reports back pain; Denies extremity pain or neck pain Integumentary Denies rash or wounds Neurologic Neurologic: Denies headache(s), paresthesias or weakness EXAM Physical Exam Const Vital Signs: 07/24/22 13:04 07/24/22 15:48 Temperature 97.7 F L Temperature Source Temporal Pulse Rate 96 94 Respiratory Rate 14 17 Blood Pressure 129/105 H Blood Pressure Mean 113 Pulse Ox 99 95 Oxygen Delivery Method Room Air Positive well nourished and well developed Constitutional Narrative: Tearful, nontoxic General Appearance ED: well developed HEENT Reports moist mucous membranes normocephalic and atraumatic Eyes PERRL, EOMs intact bilaterally and conjunctivae normal General Eye ED: Yes normal appearance of both eyes Neck no lymphadenopathy and supple General: Negative for tenderness Chest Wall Chest: Negative for tenderness Resp normal respiratory effort and normal air movement Effort and Inspection: symmetric chest movement; Negative for respiratory distress Cardio regular rate, regular rhythm and no murmurs Peripheral Pulses: pulses 2+ throughout GI normal to inspection, nondistended, normoactive bowel sounds and non-tender Palpation: Negative for guarding or rebound tenderness present Back/Spine no CVA tenderness Back/Spine Narrative: Tender lower lumbar no rash straight leg test negative 2+ patellar reflex bilaterally. Extremity Extremity Narrative: No deformities, bruising to bilateral knees. Skin intact. General Extremety ED: Negative for edema or tenderness General Extremity: Negative for edema Neuro oriented x3 and no sensory deficits noted Sensorium / Orientation: awake and alert Skin no rashes or lesions noted and no wounds MDM MDM MDM Narrative Medical decision making narrative: Patient nontoxic and referred here from pain management after discussion. She reports vomiting due to her back pain. MRI with severe stenosis back last month. IVs placed fluids given Zofran morphine and Toradol. Basic labs were n ormal. She is feeling better. She is able to ambulate. Prescription for Zofran. She will plan follow-up with pain management for outpatient treatment. She does not tolerate Wingo's or oxycodone's. Treatment will be per her pain management team. Lab Data Attestation: I reviewed the patient's lab results. Labs: Laboratory Results - last 24 hr 07/24/22 07/24/22 14:42 14:42 WBC 9.2 RBC 4.61 Hgb 14.2 Hct 42.8 MCV 92.8 MCH 30.8 MCHC 33.2 RDW Std Deviation 45.6 H RDW Coeff of [place] 13.4 Plt Count 321 MPV 9.6 Immature Gran % (Auto) 0.400 Neut % (Auto) 59.3 Lymph % (Auto) 33.6 [place] % (Auto) 5.0 Eos % (Auto) 1.4 Baso % (Auto) 0.3 Absolute Neuts (auto) 5.5 Absolute Lymphs (auto) 3.10 Nucleated RBC % 0 Sodium 144 Potassium 3.5 Chloride 112 H Carbon Dioxide 28.0 Anion Gap 4 L BUN 12 Creatinine 0.56 Estim Creat Clear Calc 91.69 Est GFR (MDRD) Af Amer 143 Est GFR (MDRD) Non-Af 118 BUN/Creatinine Ratio 21.4 H Glucose 136 H Calcium 9.0 Discharge Plan Triage Chief Complaint: Lower Extremity Injury ED Provider: Lasha Madden Dx/Rx/DC Orders Clinical Impression: Sciatica, Low back pain, Nausea and vomiting Instructions: ED Sciatica Prescriptions: New ondansetron 4 mg tablet,disintegrating 4 mg PO Q6H PRN (Reason: nausea and vomiting) Qty: 10 0RF No Action Airborne (ascorbate sodium) 333-1.7 mg tablet,chewable 4 tab PO DAILY cholecalciferol (vitamin D3) 25 mcg (1,000 unit) capsule 25 mcg PO DAILY tretinoin 0.05 % cream 1 applic topical QHS Qty: 20 0RF lamotrigine 200 mg tablet 200 mg PO BID Label Comments: take 1 tablet by mouth twice a day lisinopril 30 mg tablet 30 mg PO DAILY Qty: 90 3RF paroxetine HCl 30 mg tablet 30 mg PO DAILY Label Comments: take 2 tablets by mouth once daily alprazolam 2 MG tablet 2 mg PO TID PRN (Reason: Anxiety) rosuvastatin [Crestor] 10 mg tablet 10 mg PO QHS ondansetron 4 mg tablet,disintegrating 4 mg PO Q8H PRN (Reason: nausea and vomiting) Qty: 10 0RF (DME) Altera Nebulizer System [facility] See Rx Instructions .ROUTE .MEDSUPPLY Qty: 1 3RF Rx Instructions: nebulizer and supplies fluticasone propionate 50 mcg/actuation spray,suspension See Rx Instructions .Route PRN PRN (Reason: Nasal Congestion) Qty: 15.8 3RF Rx Instructions: USE 2 SPRAYS IN EACH NOSTRIL ONCE DAILY omeprazole 40 mg capsule,delayed release(DR/EC) 40 mg PO DAILY Qty: 90 3RF (DME) OneTouch Verio test strips Strip See Rx Instructions .ROUTE .MEDSUPPLY Qty: 100 3RF Rx Instructions: Check blood sugar daily (DME) blood-glucose meter [OneTouch Verio Flex meter] [facility] See Rx Instructions .ROUTE .MEDSUPPLY Qty: 1 0RF Rx Instructions: As directed - Check blood sugar daily (DME) Blood Glucose Test Strip See Rx Instructions .ROUTE .MEDSUPPLY Qty: 50 3RF Rx Instructions: use to monitor blood sugar daily for type 2 DM (DME) blood-glucose meter [facility] See Rx Instructions .ROUTE .MEDSUPPLY Qty: 1 0RF Rx Instructions: use to monitor blood sugar daily for type 2 DM (DME) lancets 32 gauge [facility] See Rx Instructions .ROUTE .MEDSUPPLY Qty: 100 3RF Rx Instructions: use to check blood sugar for type 2 DM albuterol sulfate [Ventolin HFA] 90 mcg/actuation HFA aerosol inhaler 2 puff INHALATION Q6H PRN (Reason: shortness of breath or wheezing) Qty: 8 0RF budesonide-formoterol [Symbicort] 160-4.5 mcg/actuation HFA aerosol inhaler 2 puff INHALATION BID Qty: 10.2 3RF ipratropium-albuterol 0.5 mg-3 mg(2.5 mg base)/3 mL solution for nebulization 3 ml INHALATION Q8H PRN (Reason: shortness of breath or wheezing) Qty: 90 3RF Primary Care Provider: Nola Rodriguez Referrals: Nola Rodriguez MD [Primary Care Provider] - 3-5 Days Activity Restrictions/Additional Instructions: Spinal stenosis seen on her MRI from 06/12. Keep your planned follow-up and treatment with pain management. Disposition Disposition: Home, Self Care Discharge Date/Time: 07/24/22 15:49
[2022-07-24] MEDS: 0.9% Normal Saline 1,000 ML 1000 ML IV (14:34)
[2022-07-24] MEDS: Ondansetron 4 MG/2 ML Vial IV (14:34)
[2022-07-24] MEDS: Morphine 4 MG/ML Syringe IV (14:34)
[2022-07-24 14:53] LABS: Absolute Neutrophil Count 5.5 X10^3/uL (2.0-7.7); Basophil# 0.03 X10^3/uL; Basophil% 0.3 % (0-1); Eosinophil# 0.13 X10^3/uL; Eosinophils% 1.4 % (0-5); Hematocrit 42.8 % (37-47); Hemoglobin 14.2 g/dL (12.0-15.0); Lymphocyte % 33.6 % (19-41); Mean Corp Hgb Conc 33.2 g/dL (32-36); Mean Corpuscular Hgb 30.8 pg (27.0-32.0); Mean Corpuscular Volume 92.8 fL (81-99); Mean Platelet Vol. 9.6 fl (6.2-12.0); Monocyte# 0.46 X10^3/uL; NRBC Flagged by Analyzer 0 % (0-5); Neutrophil # 5.47 X10^3/uL (2.7-7.7); Neutrophil % 59.3 % (47-70); Platelet Count 321 K/mm3 (150-450); RBC Distribution Width CV 13.4 % (11.6-14.6); RBC Distribution Width SD 45.6 fl (35.1-43.9); Red Blood Count 4.61 M/mm3 (4.2-5.4); White Blood Count 9.2 K/mm3 (4.4-11.0)
[2022-07-24] MEDS: Ketorolac 15 MG/ML Vial IV (15:05)
[2022-07-24 15:06] LABS: Anion Gap 4 (5-15); BUN 12 mg/dL (7-18); BUN/Creat Ratio 21.4 RATIO (10-20); Chloride 112 mmol/L (98-107); Creatinine, Serum 0.56 mg/dL (0.55-1.02); EST Glomerular Filtration Rate 118 mL/min (>60); Est Glom Filt Rate - Afr Amer 143 mL/min (>60); Estimated Creatinine Clearance 91.69 ml/min; Glucose 136 mg/dL (74-106); Potassium 3.5 mmol/L (3.5-5.1); Sodium Level 144 mmol/L (136-145)
[2022-07-24 15:48] VITALS: PULSE 94; RESP 17; O2SAT 95
== END 2022-07-24 15:49 | disposition home or self-care (01) ==
PROVIDERS: Emergency Provider Emergency Medicine; PCP Internal Medicine; Visit Provider Emergency Medicine
DX: R11.2 Nausea with vomiting, unspecified (principal); E11.40 Type 2 diabetes mellitus with diabetic neuropathy, unspecified; M54.40 Lumbago with sciatica, unspecified side; F17.210 Nicotine dependence, cigarettes, uncomplicated; E78.5 Hyperlipidemia, unspecified; I10 Essential (primary) hypertension; J45.909 Unspecified asthma, uncomplicated; Z79.899 Other long term (current) drug therapy
CPT/HCPCS: 80048; 85025; 96361; 96374; 96375; 99282; J7030; A4216; J2405

== ENCOUNTER 2022-08-29 16:33 | Emergency (ER) | payer MEDICAID, SELFPAY ==
[2022-08-29 16:34] VITALS: BP 116/86; PULSE 106; RESP 15; TEMP 36.1; O2SAT 98; BMI 27.6
--- NOTE | 2022-08-29 16:51 | EDS_ITS ---
HPI History of Present Illness Chief Complaint: Back Detail of Chief Complaint: Exacerbation of low back pain secondary to mild trauma Informant: patient Onset/Context/Timing Onset: Month(s) (Pain has been present for months. Worse today after her dog jumped on her.) Context: Gradual Onset and Sudden Onset Injury: - (Large dog jumped on her.) Timing: Continuous Quality: Dull and Aching Location: Lumbar, Buttock, Right Leg and Left Leg Current Severity: Severe Maximum Severity: Severe Worsened by: improves with Movement, Ambulation, Bending and Lifting Relieved by: Nothing Associated Symptoms Associated Symptoms: Radiation to Right Leg, Radiation to Left Leg and - (There is no saddle paresthesia or anesthesia.); Negative for Numbness, Tingling, Fever, Abdominal Pain, Dysuria, Unable to Ambulate, Unable to Transfer, Urinary Retention, Urinary Incontinence, Constipation or Fecal Incontinence Narrative Narrative: Patient is a 57-year-old woman with history of essential hypertension, hyperlipidemia, diet-controlled diabetes, GERD and chronic back pain. MRI was performed May of this year. MRI shows spinal stenosis. There is no evidence of herniated disc or narrowing of vertebral foramen. Patient states she received an injection from pain management 2 weeks ago with no improvement. She denies bowel bladder dysfunction. She denies saddle paresthesia or anesthesia. She denies foot drop. She denies buckling of her knees going up or down steps. She states the pain got worse after her large dog jumped on her. Prior similar symptoms: Yes and With Prior Back Pain Recent Illness/Hospitalization: No PFSH PFS Medical History Abnormal EKG Acute exacerbation of chronic low back pain Anxiety and depression Asthma Back pain Carpal tunnel syndrome Chronic back pain Chronic headaches Chronic radicular lumbar pain Concussion Cough Encounter for screening for malignant neoplasm of lung in current smoker with 30 pack year history or greater Essential hypertension Fall GERD (gastroesophageal reflux disease) Grief Head injury Hx of emotional problems Hyperlipidemia IBS (irritable bowel syndrome) Muscle spasm Neuropathy Panic attack Post concussion syndrome Seasonal allergies Type 2 diabetes mellitus Vision problems Home Medications alprazolam 2 mg tablet 2 mg PO TID PRN Anxiety 03/24/19 [History Last Taken 08/22/20 04:30 2 MG] nebulizers (Altera Nebulizer System) #1 ea 09/06/20 [Rx Last Taken Unknown] fluticasone propionate 50 mcg/actuation nasal spray,suspension See Rx Instructions .Route PRN PRN Nasal Congestion #15.8 mL 11/16/21 [Rx Last Taken Unknown] omeprazole 40 mg capsule,delayed release 40 mg PO DAILY #90 caps 11/16/21 [Rx Last Taken Unknown] blood-glucose meter (OneTouch Verio Flex Meter) #1 ea 11/27/21 [Rx Last Taken Unknown] blood sugar diagnostic (Blood Glucose Test strips) #50 ea 11/28/21 [Rx Last Taken Unknown] blood-glucose meter #1 ea 11/28/21 [Rx Last Taken Unknown] lancets 32 gauge #100 ea 11/28/21 [Rx Last Taken Unknown] rosuvastatin 10 mg tablet (Crestor) 10 mg PO QHS 03/11/22 [History Last Taken Unknown] lamotrigine 200 mg tablet 200 mg PO BID 03/12/22 [History Last Taken Unknown] paroxetine HCl 30 mg tablet 30 mg PO DAILY 05/08/22 [History Last Taken Unknown] budesonide-formoterol HFA 160 mcg-4.5 mcg/actuation aerosol inhaler (Symbicort) 2 puff inhalation BID #10.2 grams 07/04/22 [Rx Last Taken Unknown] lisinopril 30 mg tablet 30 mg PO DAILY #90 tabs 07/04/22 [Rx Last Taken Unknown] ipratropium 0.5 mg-albuterol 3 mg (2.5 mg base)/3 mL nebulization soln 3 ml inhalation Q8H PRN shortness of breath or wheezing #90 mL 07/22/22 [Rx Last Taken Unknown] Ventolin HFA 90 mcg/actuation aerosol inhaler (albuterol sulfate) 2 puff inhal ation Q6H PRN shortness of breath or wheezing #8 grams 08/21/22 [Rx Last Taken Unknown] empagliflozin 25 mg tablet (Jardiance) 25 mg PO QAM #90 tabs 08/23/22 [Rx Last Taken Unknown] ondansetron 4 mg disintegrating tablet 4 mg PO Q8H PRN nausea and vomiting #30 tabs 08/26/22 [Rx Last Taken Unknown] blood sugar diagnostic (OneTouch Verio test strips) #100 ea 08/28/22 [Rx Last Taken Unknown] Allergy/AdvReac Type Severity Reaction Status Date / Time red dye Allergy Severe swelling Verified 08/29/22 16:34 carbidopa Allergy Unknown Verified 08/29/22 16:34 gabapentin Allergy Unknown Verified 08/29/22 16:34 latex Allergy Rash Verified 08/29/22 16:34 quetiapine fumarate Allergy Other Verified 08/29/22 16:34 [From Seroquel] topiramate [From Topamax] Allergy Hives Verified 08/29/22 16:34 tramadol HCl [From Ultram] Allergy Other Verified 08/29/22 16:34 amitriptyline AdvReac Vomiting Verified 08/29/22 16:34 aspirin AdvReac Upset Verified 08/29/22 16:34 Stomach codeine AdvReac Vomiting Verified 08/29/22 16:34 cyclobenzaprine HCl AdvReac Upset Verified 08/29/22 16:34 [From Flexeril] Stomach etodolac [Etodolac] AdvReac Vomiting Verified 08/29/22 16:34 hydrocodone bitartrate AdvReac Vomiting Verified 08/29/22 16:34 [From Vicodin] metformin AdvReac Diarrhea Verified 08/29/22 16:34 metoclopramide [From Reglan] AdvReac Other Verified 08/29/22 16:34 naproxen [From Naprosyn] AdvReac Upset Verified 08/29/22 16:34 Stomach propoxyphene napsylate AdvReac Vomiting Verified 08/29/22 16:34 [From Darvocet-N 100] Family History Mother Malignant hyperthermia due to anesthesia Angina pectoris Arthritis Bowel disease Myocardial infarction Heart disease Hypertension High cholesterol CVA (cerebral vascular accident) Father Asthma Arthritis Myocardial infarction Heart disease High cholesterol Hypertension CVA (cerebral vascular accident) Leukemia Diabetes Grandmother Lung cancer Grandfather Diabetes Grandmother Diabetes Surgical History History of History of cholecystectomy History of orthopedic surgery History of partial hysterectomy History of total hysterectomy S/P knee surgery Social History (Updated 08/29/22 @ 16:[address] Heri Terry MD) household members: none Smoking Status: Current every day smoker Tobacco: How many years used: 46 Electronic Cigarette Use: not used how long ago did patient quit smokin+ pack year smoking history (1.5-2 ppd x 32 years, 3 ppd x 14 years). second hand exposure: Yes quit status: considering quitting counseling given: provider counseling alcohol intake: never substance use type: does not use what type of physical activity do you participate in: walking and bicycling ROS ROS ED Constitutional Constitutional ED: Denies chills, fever(s), subjective, sweats or weight loss Eyes Eyes: Denies blurry vision, change in vision or diplopia ENT ENT ED: Reports other Details: There is no history of recent dental procedure. ; Denies ear pain, rhinorrhea or sore throat Cardiovascular Cardiovascular: Denies chest pain, orthopnea, palpitations, paroxysmal nocturnal dyspnea or racing heartbeat Respiratory/Chest Respiratory/Chest: Denies dyspnea, dyspnea on exertion, orthopnea or paroxysmal nocturnal dyspnea Gastrointestinal Gastrointestinal: Denies abdominal pain, melena, nausea or vomiting Genitourinary Genitourinary ED: Denies dysuria, hematuria or urinary frequency Musculoskeletal Musculoskeletal: Reports back pain; Denies arthralgias, myalgias or neck pain Integumentary Denies abscess, Abrasions or rash Neurologic Neurologic: Denies headache(s), paresthesias or weakness Psychiatric Psychiatric: Reports anxiety and depression; Denies suicidal ideation Hematologic/Lymphatic Hematologic/Lymphatic: Denies easy bleeding, easy bruising or lymphadenopathy EXAM Physical Exam Const Vital Signs: 08/29/22 16:34 Temperature 97.0 F L Temperature Source Temporal Pulse Rate 106 H Respiratory Rate 15 Blood Pressure 116/86 H Blood Pressure Mean 96 Pulse Ox 98 Oxygen Delivery Method Room Air Positive well nourished and well developed Constitutional Narrative: Patient is covered in dog hair. She is crying. General Appearance ED: well developed and NAD; Negative for pallor HEENT Reports moist mucous membranes HEENT Narrative: Head is atraumatic normocephalic. Ears normal. Nares patent. Uvula midline. No deviation with protrusion. Posterior pharynx no erythema or exudate. Eyes PERRL and EOMs intact bilaterally General Eye ED: Negative for pale conjunctiva or scleral icterus Neck no lymphadenopathy, supple and no JVD Resp normal respiratory effort and clear to auscultation bilaterally Cardio regular rate, regular rhythm, S1 normal heart sound, S2 normal heart sound and no murmurs GI normal to inspection, nondistended, normoactive bowel sounds, soft to palpation, non-tender, non-distended and no masses GI Narrative: There is no pulsatile mass. There is no abdominal bruit. Back/Spine normal to inspection and no thoracic nor lumbar tenderness General Back: Negative for CVA tenderness Cervical Spine: Negative for cervical spine tenderness Thoracic Spine / Upper Back: paraspinal muscle tenderness Lumbar Spine / Lower Back: ROM limited and straight leg raise negative bilaterally Extremity normal to inspection and no clubbing, cyanosis or edema Extremity Narrative: There is no asymmetry, swelling, discoloration, leg vein distention, palpable cords or tenderness along the distribution of the deep venous system. DP and PT pulse are both palpable. They are symmetric. General Extremety ED: Negative for edema or tenderness General Extremity: Negative for edema Neuro oriented x3 and no sensory deficits noted Neuro Narrative: Straight leg test was negative right and left. Patient gait was observed. She has no foot drop. She was able to walk on heels and toes. She was able to perform a 1 legged squat on the right side and left side. She complained of pain posterior right thigh. Patient reported pain with straight leg test on the right at 10 degrees. It did not follow a there was a negative bowstring sign. Straight leg test was negative on the left. There was no crossover. Sensorium / Orientation: alert Motor Exam: strength 5/5 throughout Deep Tendon Reflexes: Rt Patellar (L4): 1+, Lt Patellar (L4): 1+, Rt Ankle (S1): 1+ and Lt Ankle (S1): 1+ Deep Tendon Reflexes Back: Rt Patellar (L4): 1+, Lt Patellar (L4): 1+, Rt Ankle (S1): 1+ and Lt Ankle (S1): 1+ Plantar Reflex: Downgoing: bilateral (There is no clonus right or left side) Psych Negative for mental status grossly normal Mood & Affect: tearful Skin no rashes or lesions noted and no wounds General Skin Exam: Negative for jaundice or pallor Lesions: lesion noted Rashes: rashes noted Trauma: Negative for abrasion or puncture MDM MDM MDM Narrative Medical decision making narrative: Suspect patient has exacerbation of back pain after her dog jumped on her. She does have spinal stenosis L3-L5. MRI was performed May 2022. There is no evidence of herniated disc. Patient has negative straight leg test. Patient denies claudication with walking. Patient was medicated with IV meds. She was informed that I could not prescribe pain medicine to go home. She understood. She stated she was told by the pain management doctor she could not have a prescription written by me Patient was reassessed at 191. She is sitting up. She is no longer tearful. She states she feels markedly improved. Plan is to discharge to home. Radiography Diagnostic Testing: MRI was performed May 2022. Patient has significant spinal stenosis L3-4 L4-5. There is also thickening of the ligamentum flavum. There is mild degenerative changes noted as well. Discharge Plan Triage Chief Complaint: Back ED Provider: Heri Terry Dx/Rx/DC Orders Clinical Impression: Acute bilateral low back pain without sciatica, Tobacco dependence, Type 2 diabetes mellitus, Degenerative spondylolisthesis, Essential hypertension, Spinal stenosis at L4-L5 level Instructions: ED Back Pain (Acute or Chronic) Prescriptions: No Action lamotrigine 200 mg tablet 200 mg PO BID Label Comments: take 1 tablet by mouth twice a day lisinopril 30 mg tablet 30 mg PO DAILY Qty: 90 3RF paroxetine HCl 30 mg tablet 30 mg PO DAILY Label Comments: take 2 tablets by mouth once daily albuterol sulfate [Ventolin HFA] 90 mcg/actuation HFA aerosol inhaler 2 puff INHALATION Q6H PRN (Reason: shortness of breath or wheezing) Qty: 8 3RF alprazolam 2 MG tablet 2 mg PO TID PRN (Reason: Anxiety) rosuvastatin [Crestor] 10 mg tablet 10 mg PO QHS (DME) Altera Nebulizer System [facility] [place] Instructions .ROUTE .MEDSUPPLY Qty: 1 3RF Rx Instructions: nebulizer and supplies fluticasone propionate 50 mcg/actuation spray,suspension See Rx Instructions .Route PRN PRN (Reason: Nasal Congestion) Qty: 15.8 3RF Rx Instructions: USE 2 SPRAYS IN EACH NOSTRIL ONCE DAILY omeprazole 40 mg capsule,delayed release(DR/EC) 40 mg PO DAILY Qty: 90 3RF (DME) blood-glucose meter [OneTouch Verio Flex meter[place] [facility] [place] Instructions .ROUTE .MEDSUPPLY Qty: 1 0RF Rx Instructions: As directed - Check blood sugar daily (DME) Blood Glucose Test Strip See Rx Instructions .ROUTE .MEDSUPPLY Qty: 50 3RF Rx Instructions: use to monitor blood sugar daily for type 2 DM (DME) blood-glucose meter Misc See Rx Instructions .ROUTE .MEDSUPPLY Qty: 1 0RF Rx Instructions: use to monitor blood sugar daily for type 2 DM (DME) lancets 32 gauge misc See Rx Instructions .ROUTE .MEDSUPPLY Qty: 100 3RF Rx Instructions: use to check blood sugar for type 2 DM budesonide-formoterol [Symbicort] 160-4.5 mcg/actuation HFA aerosol inhaler 2 puff INHALATION BID Qty: 10.2 3RF ipratropium-albuterol 0.5 mg-3 mg(2.5 mg base)/3 mL solution for nebulization 3 ml INHALATION Q8H PRN (Reason: shortness of breath or wheezing) Qty: 90 3RF Jardiance 25 mg tablet 25 mg PO QAM Qty: 90 3RF ondansetron 4 mg tablet,disintegrating 4 mg PO Q8H PRN (Reason: nausea and vomiting) Qty: 30 0RF (DME) OneTouch Verio test strips Strip See Rx Instructions .ROUTE .MEDSUPPLY Qty: 100 3RF Rx Instructions: Check blood sugar daily Primary Care Provider: Nola Rodriguez Referrals: Nola Rodriguez MD [Primary Care Provider] - As Needed Disposition Disposition: Home, Self Care
[2022-08-29] MEDS: Ondansetron 4 MG/2 ML Vial IV (17:54)
[2022-08-29] MEDS: Morphine 4 MG/ML Syringe IV (17:54)
[2022-08-29] MEDS: Ketorolac 15 MG/ML Vial IV (18:32)
== END 2022-08-29 19:30 | disposition home or self-care (01) ==
PROVIDERS: Emergency Provider Emergency Medicine; PCP Internal Medicine; Visit Provider Emergency Medicine
DX: M48.061 Spinal stenosis, lumbar region without neurogenic claudication (principal); E11.40 Type 2 diabetes mellitus with diabetic neuropathy, unspecified; F17.210 Nicotine dependence, cigarettes, uncomplicated; E78.5 Hyperlipidemia, unspecified; I10 Essential (primary) hypertension; Z79.899 Other long term (current) drug therapy
CPT/HCPCS: 96374; 96375; 99282; A4216; J2405

== ENCOUNTER 2022-09-20 09:05 | Emergency (ER) | payer MEDICAID, SELFPAY ==
[2022-09-20 09:07] VITALS: BP 158/95; PULSE 92; RESP 17; TEMP 36.2; O2SAT 100; BMI 26.7
--- NOTE | 2022-09-20 10:15 | ED.VIS.BACK ---
HPI History of Present Illness Chief Complaint: Back Narrative Narrative: 57-year-old female with history of chronic back pain presenting with a flareup. She denies any trauma. No saddle anesthesia or paresthesia. No loss of bladder or bowel control. She states that she was referred to Dr. Garcia a pain management had 1 injection in her spine. She has another one coming up on the . She states that its not controlling her pain. She does also see Dr. Hickey and she states that if the next injection does not work they are planning on having her see him again for possible surgical intervention. Patient states he is not prescribed any narcotics at home because pain pills make her nauseous and she is concerned for addiction. She states that she called Dr. Garcia's office today and was told to come to the ER for treatment of her chronic pain. She states that he does not prescribe narcotic medications to her he only does injections and this was the reasoning. [facility] Medical History Abnormal EKG Acute exacerbation of chronic low back pain Anxiety and depression Asthma Back pain Carpal tunnel syndrome Chronic back pain Chronic headaches Chronic radicular lumbar pain Concussion Cough Encounter for screening for malignant neoplasm of lung in current smoker with 30 pack year history or greater Essential hypertension Fall GERD (gastroesophageal reflux disease) Grief Head injury Hx of emotional problems Hyperlipidemia IBS (irritable bowel syndrome) Muscle spasm Neuropathy Panic attack Post concussion syndrome Seasonal allergies Type 2 diabetes mellitus Vision problems Home Medications alprazolam 2 mg tablet 2 mg PO TID PRN Anxiety 03/24/19 [History Last Taken 08/22/20 04:30 2 MG] nebulizers (Altera Nebulizer System) #1 ea 09/06/20 [Rx Last Taken Unknown] fluticasone propionate 50 mcg/actuation nasal spray,suspension See Rx Instructions .Route PRN PRN Nasal Congestion #15.8 mL 11/16/21 [Rx Last Taken Unknown] omeprazole 40 mg capsule,delayed release 40 mg PO DAILY #90 caps 11/16/21 [Rx Last Taken Unknown] blood-glucose meter ([employer] Verio Flex Meter) #1 ea 11/27/21 [Rx Last Taken Unknown] blood sugar diagnostic (Blood Glucose Test strips) #50 ea 11/28/21 [Rx Last Taken Unknown] blood-glucose meter #1 ea 11/28/21 [Rx Last Taken Unknown] lancets 32 gauge #100 ea 11/28/21 [Rx Last Taken Unknown] rosuvastatin 10 mg tablet (Crestor) 10 mg PO QHS 03/11/22 [History Last Taken Unknown] lamotrigine 200 mg tablet 200 mg PO BID 03/12/22 [History Last Taken Unknown] paroxetine HCl 30 mg tablet 30 mg PO DAILY 05/08/22 [History Last Taken Unknown] budesonide-formoterol HFA 160 mcg-4.5 mcg/actuation aerosol inhaler (Symbicort) 2 puff inhalation BID #10.2 grams 07/04/22 [Rx Last Taken Unknown] lisinopril 30 mg tablet 30 mg PO DAILY #90 tabs 07/04/22 [Rx Last Taken Unknown] ipratropium 0.5 mg-albuterol 3 mg (2.5 mg base)/3 mL nebulization soln 3 ml inhalation Q8H PRN shortness of breath or wheezing #90 mL 07/22/22 [Rx Last Taken Unknown] Ventolin HFA 90 mcg/actuation aerosol inhaler (albuterol sulfate) 2 puff inhalation Q6H PRN shortness of breath or wheezing #8 grams 08/21/22 [Rx Last Taken Unknown] empagliflozin 25 mg tablet (Jardiance) 25 mg PO QAM #90 tabs 08/23/22 [Rx Last Taken Unknown] ondansetron 4 mg disintegrating tablet 4 mg PO Q8H PRN nausea and vomiting #30 tabs 08/26/22 [Rx Last Taken Unknown] blood sugar diagnostic ([employer] Verio test strips) #100 ea 08/28/22 [Rx Last Taken Unknown] Allergy/AdvReac Type Severity Reaction Status Date / Time red dye Allergy Severe swelling Verified 09/20/22 09:07 carbidopa Allergy Unknown Verified 09/20/22 09:07 gabapentin Allergy Unknown Verified 09/20/22 09:07 latex Allergy Rash Verified 09/20/22 09:07 quetiapine fumarate Allergy Other Verified 09/20/22 09:07 [From Seroquel] topiramate [From Topamax] Allergy Hives Verified 09/20/22 09:07 tramadol HCl [From Ultram] Allergy Other Verified 09/20/22 09:07 amitriptyline AdvReac Vomiting Verified 09/20/22 09:07 aspirin AdvReac Upset Verified 09/20/22 09:07 Stomach codeine AdvReac Vomiting Verified 09/20/22 09:07 cyclobenzaprine HCl AdvReac Upset Verified 09/20/22 09:07 [From Flexeril] Stomach etodolac [Etodolac] AdvReac Vomiting Verified 09/20/22 09:07 hydrocodone bitartrate AdvReac Vomiting Verified 09/20/22 09:07 [From Vicodin] metformin AdvReac Diarrhea Verified 09/20/22 09:07 metoclopramide [From Reglan] AdvReac Other Verified 09/20/22 09:07 naproxen [From Naprosyn] AdvReac Upset Verified 09/20/22 09:07 Stomach propoxyphene napsylate AdvReac Vomiting Verified 09/20/22 09:07 [From Darvocet-N 100] Family History Mother Malignant hyperthermia due to anesthesia Angina pectoris Arthritis Bowel disease Myocardial infarction Heart disease Hypertension High cholesterol CVA (cerebral vascular accident) Father Asthma Arthritis Myocardial infarction Heart disease High cholesterol Hypertension CVA (cerebral vascular accident) Leukemia Diabetes Grandmother Lung cancer Grandfather Diabetes Grandmother Diabetes Surgical History History of History of cholecystectomy History of orthopedic surgery History of partial hysterectomy History of total hysterectomy S/P knee surgery Social History household members: none Smoking Status: Current every day smoker tobacco type: cigarettes Tobacco: How many years used: 46 Electronic Cigarette Use: not used how long ago did patient quit smokin+ pack year smoking history (1.5-2 ppd x 32 years, 3 ppd x 14 years). second hand exposure: Yes quit status: considering quitting counseling given: provider counseling alcohol intake: never substance use type: does not use what type of physical activity do you participate in: walking and bicycling ROS ROS ED Constitutional Constitutional ED: Denies chills or fever(s) Eyes Eyes: Denies blurry vision or change in vision ENT ENT ED: Denies rhinorrhea or sore throat Cardiovascular Cardiovascular: Denies chest pain or palpitations Respiratory/Chest Respiratory/Chest: Denies dyspnea or dyspnea on exertion Gastrointestinal Gastrointestinal: Denies abdominal pain or constipation Genitourinary Genitourinary ED: Denies dysuria or hematuria Musculoskeletal Musculoskeletal: Reports back pain; Denies arthralgias Integumentary Denies abscess Neurologic Neurologic: Denies headache(s) or paresthesias Psychiatric Psychiatric: Denies anxiety or depression EXAM Physical Exam Const Vital Signs: 09/20/22 09:07 Temperature 97.2 F L Temperature Source Temporal Pulse Rate 92 Respiratory Rate 17 Blood Pressure 158/95 H Blood Pressure Mean 116 Pulse Ox 100 Oxygen Delivery Method Room Air Positive well nourished HEENT Reports moist mucous membranes Negative for trauma Eyes PERRL and EOMs intact bilaterally Cardio regular rate and regular rhythm GI normal to inspection, nondistended, normoactive bowel sounds Back/Spine Lumbar Spine / Lower Back: Negative for straight leg raise negative bilaterally Extremity normal to inspection and no clubbing, cyanosis or edema Neuro oriented x3 Sensorium / Orientation: alert Psych mental status grossly normal Mood & Affect: Negative for depressed or sad Skin no rashes or lesions noted and no wounds MDM MDM MDM Narrative Medical decision making narrative: Patient presenting with acute exacerbation of chronic back pain. No red flag signs or symptoms of cauda equina syndrome or infectious etiology. She is medicated with IM morphine, Phenergan, Toradol. I counseled her that we cannot treat chronic pain as an outpatient and she would need to see Dr. Garcia if her pain is worsening. I do not believe she needs any imaging today. She states she is a follow-up on the [address] Garcia for a second spinal injection. She also has follow-up with Dr. Llanos planned. Return precautions discussed. Impression: 1. Acute exacerbation of chronic back Discharge Plan Triage Chief Complaint: Back ED Provider: Raimundo Treviño Dx/Rx/DC Orders Clinical Impression: Chronic back pain Instructions: ED Pain Management: Chronic Prescriptions: No Action lamotrigine 200 mg tablet 200 mg PO BID Label Comments: take 1 tablet by mouth twice a day lisinopril 30 mg tablet 30 mg PO DAILY Qty: 90 3RF paroxetine HCl 30 mg tablet 30 mg PO DAILY Label Comments: take 2 tablets by mouth once daily albuterol sulfate [Ventolin HFA] 90 mcg/actuation HFA aerosol inhaler 2 puff INHALATION Q6H PRN (Reason: shortness of breath or wheezing) Qty: 8 3RF alprazolam 2 MG tablet 2 mg PO TID PRN (Reason: Anxiety) rosuvastatin [Crestor] 10 mg tablet 10 mg PO QHS (DME) Altera Nebulizer System [facility] [place] See Rx Instructions .ROUTE .MEDSUPPLY Qty: 1 3RF Rx Instructions: nebulizer and supplies fluticasone propionate 50 mcg/actuation spray,suspension See Rx Instructions .Route PRN PRN (Reason: Nasal Congestion) Qty: 15.8 3RF Rx Instructions: USE 2 SPRAYS IN EACH NOSTRIL ONCE DAILY omeprazole 40 mg capsule,delayed release(DR/EC) 40 mg PO DAILY Qty: 90 3RF (DME) blood-glucose meter [OneTouch Verio Flex meter] [facility] [place] See Rx Instructions .ROUTE .MEDSUPPLY Qty: 1 0RF Rx Instructions: As directed - Check blood sugar daily (DME) Blood Glucose Test Strip See Rx Instructions .ROUTE .MEDSUPPLY Qty: 50 3RF Rx Instructions: use to monitor blood sugar daily for type 2 DM (DME) blood-glucose meter [facility] [place] See Rx Instructions .ROUTE .MEDSUPPLY Qty: 1 0RF Rx Instructions: use to monitor blood sugar daily for type 2 DM (DME) lancets 32 gauge [facility] [place] Rx Instructions .ROUTE .MEDSUPPLY Qty: 100 3RF Rx Instructions: use to check blood sugar for type 2 DM budesonide-formoterol [Symbicort] 160-4.5 mcg/actuation HFA aerosol inhaler 2 puff INHALATION BID Qty: 10.2 3RF ipratropium-albuterol 0.5 mg-3 mg(2.5 mg base)/3 mL solution for nebulization 3 ml INHALATION Q8H PRN (Reason: shortness of breath or wheezing) Qty: 90 3RF Jardiance 25 mg tablet 25 mg PO QAM Qty: 90 3RF ondansetron 4 mg tablet,disintegrating 4 mg PO Q8H PRN (Reason: nausea and vomiting) Qty: 30 0RF (DME) OneTouch Verio test strips Strip See Rx Instructions .ROUTE .MEDSUPPLY Qty: 100 3RF Rx Instructions: Check blood sugar daily Primary Care Provider: Nola Rodriguez Referrals: Adi Garcia DO [Non-Staff] - As soon as possible Nola Rodriguez MD [Primary Care Provider] - Orlando Llanos DO [Med Staff - Active Staff] - 3-5 Days Disposition Disposition: Home, Self Care
[2022-09-20] MEDS: Morphine 4 MG/ML Syringe IM (10:23)
[2022-09-20] MEDS: Ketorolac 15 MG/ML Vial IM (10:25)
[2022-09-20] MEDS: proMETHazine 25 MG/ML Syringe 12.5 MG IM (10:27)
[2022-09-20 11:47] VITALS: RESP 16
== END 2022-09-20 11:48 | disposition home or self-care (01) ==
PROVIDERS: Emergency Provider Student in an Organized Health Care Education/Training Program; PCP Internal Medicine; Visit Provider Student in an Organized Health Care Education/Training Program
DX: G89.29 Other chronic pain (principal); E11.40 Type 2 diabetes mellitus with diabetic neuropathy, unspecified; M54.9 Dorsalgia, unspecified; I10 Essential (primary) hypertension; E78.5 Hyperlipidemia, unspecified; F17.210 Nicotine dependence, cigarettes, uncomplicated
CPT/HCPCS: 96372; 99282

== ENCOUNTER → 2022-09-26 | Outpatient (CLI) | payer MEDICAID, SELFPAY ==
[2022-09-26 16:35] LABS: Absolute Lymphocyte Count 2.99 X10^3/uL (0.83-4.51); Absolute Neutrophil Count 8.2 X10^3/uL (2.0-7.7); Basophil# 0.03 X10^3/uL; Basophil% 0.3 % (0-1); Eosinophil# 0.03 X10^3/uL; Eosinophils% 0.3 % (0-5); Hematocrit 47.3 % (37-47); Hemoglobin 16.3 g/dL (12.0-15.0); Lymphocyte # 2.99 X10^3/ul (0.83-4.51); Lymphocyte % 25.1 % (19-41); Mean Corp Hgb Conc 34.5 g/dL (32-36); Mean Corpuscular Hgb 32.1 pg (27.0-32.0); Mean Corpuscular Volume 93.3 fL (81-99); Monocyte# 0.63 X10^3/uL; Monocyte% 5.3 % (0-10); NRBC Flagged by Analyzer 0 % (0-5); Neutrophil # 8.17 X10^3/uL (2.7-7.7); Neutrophil % 68.4 % (47-70); Platelet Count 347 K/mm3 (150-450); RBC Distribution Width CV 13.3 % (11.6-14.6); RBC Distribution Width SD 45.1 fl (35.1-43.9); Red Blood Count 5.07 M/mm3 (4.2-5.4); White Blood Count 11.9 K/mm3 (4.4-11.0)
[2022-09-26 17:09] LABS: Anion Gap 5 (5-15); BUN 15 mg/dL (7-18); BUN/Creat Ratio 22.1 RATIO (10-20); Calcium,Total 9.6 mg/dL (8.5-10.1); Chloride 109 mmol/L (98-107); Creatinine, Serum 0.68 mg/dL (0.55-1.02); EST Glomerular Filtration Rate 95 mL/min (>60); Est Glom Filt Rate - Afr Amer 114 mL/min (>60); Glucose 122 mg/dL (74-106); Potassium 3.6 mmol/L (3.5-5.1); Sodium Level 140 mmol/L (136-145)
== END | disposition home or self-care (01) ==
PROVIDERS: PCP Internal Medicine; Referring Provider Internal Medicine; Visit Provider Internal Medicine
DX: E11.9 Type 2 diabetes mellitus without complications (principal)
CPT/HCPCS: 36415; 80048; 85025

== ENCOUNTER → 2022-10-25 | Outpatient (CLI) | payer MEDICAID, SELFPAY ==
[2022-10-25 14:19] LABS: Bacteria 0 SEEN /hpf (None Seen); Mucous, Urine 0 SEEN /hpf (<or=2+); Red Blood Cells-Urine 0 SEEN /hpf (0-5); White Blood Cells 0 SEEN /hpf (0-5)
[2022-10-25 17:33] LABS: Hematocrit 42.1 % (37-47); Hemoglobin 13.8 g/dL (12.0-15.0); Mean Corp Hgb Conc 32.8 g/dL (32-36); Mean Corpuscular Hgb 30.8 pg (27.0-32.0); Mean Platelet Vol. 10.1 fl (6.2-12.0); Platelet Count 292 K/mm3 (150-450); RBC Distribution Width CV 13.5 % (11.6-14.6); RBC Distribution Width SD 46.5 fl (35.1-43.9); Red Blood Count 4.48 M/mm3 (4.2-5.4); White Blood Count 8.9 K/mm3 (4.4-11.0)
[2022-10-25 17:36] LABS: Color, Urine Straw (Yellow); Glucose, Dipstick 1000 mg/dl (Normal); Ketone-Dipstick Negative (Negative); Leukocyte Esterase-Dipstick Negative /ul (Negative); Nitrite-Dipstick Negative (Negative); Occult Blood-Urine Negative /ul (Negative); Protein-Dipstick Negative (Negative); Specific Gravity, Urine 1.015 (1.002-1.030); Urine Bilirubin Dipstick Negative (Negative); Urine Clarity Clear (Clear); Urine Urobilinogen Normal (Normal)
[2022-10-25 17:50] LABS: Squamous Epithelial Cells - UA 0-5 SEEN /hpf (5-10)
[2022-10-25 18:11] LABS: ALB/GLOB Ratio 1.4 RATIO (0.9-2.4); AST(SGOT) 10 U/L (15-37); Alanine Aminotransfer ALT/SGPT 22 U/L (13-56); Albumin, Serum 3.8 g/dL (3.2-5.0); Alkaline Phosphatase 76 U/L (45-117); Anion Gap 7 (5-15); BUN 19 mg/dL (7-18); BUN/Creat Ratio 31.8 RATIO (10-20); Calcium,Total 8.7 mg/dL (8.5-10.1); Chloride 110 mmol/L (98-107); Cholesterol 194 mg/dL (200); EST Glomerular Filtration Rate 110 mL/min (>60); Est Glom Filt Rate - Afr Amer 133 mL/min (>60); Globulin 2.7 g/dL (2.2-4.2); Glucose 95 mg/dL (74-106); High Density Lipoprotein 51 mg/dL; Potassium 4.1 mmol/L (3.5-5.1); Protein, Total 6.5 g/dL (6.4-8.2); Sodium Level 141 mmol/L (136-145); Thyroid Stim Hormone (TSH) 0.91 uIU/mL (0.358-3.74); Triglycerides 138 mg/dL; Very Low Density Lipoprotein 28 mg/dL (5-40)
[2022-10-25 18:11] LABS: Microalbumin,Random Urine 6.8 mg/L (NO RANGE EST.); Microalbumin:Creatinine Ratio 14.4 mg/g CRE (<30 mg/g CRE)
== END | disposition home or self-care (01) ==
PROVIDERS: PCP Internal Medicine; Referring Provider Nurse Practitioner Family; Visit Provider Nurse Practitioner Family
DX: M54.9 Dorsalgia, unspecified (principal); E11.9 Type 2 diabetes mellitus without complications; R32 Unspecified urinary incontinence; G89.29 Other chronic pain; I10 Essential (primary) hypertension; E78.5 Hyperlipidemia, unspecified
CPT/HCPCS: 36415; 80053; 80061; 81001; 82043; 82570; 84443; 85027; 87086; 87088

== ENCOUNTER 2022-11-01 11:44 | Emergency (ER) | payer MEDICAID, SELFPAY ==
[2022-11-01 11:45] VITALS: BP 157/108; PULSE 99; RESP 18; TEMP 36.3; O2SAT 100; BMI 26.2
--- NOTE | 2022-11-01 12:13 | EDS_ITS ---
HPI History of Present Illness Chief Complaint: Back Informant: patient Narrative Narrative: 57-year-old female presenting to the emergency department with chronic low back pain. She states that she is having a flare of her pain. She has been doing back injections for spinal stenosis with Dr. Huang. She states that they have not been effective and so she is going back to see her surgeon to discuss surgery. She states that she has been taking Tylenol and Motrin with no relief. She is a heavy smoker. She denies any fevers. She denies any rashes. She denies any recent injury to the back. She states that her radicular symptoms are unchanged. [facility] Medical History Abnormal EKG Acute exacerbation of chronic low back pain Anxiety and depression Asthma Back pain Carpal tunnel syndrome Chronic back pain Chronic headaches Chronic radicular lumbar pain Concussion Cough Easy bruising Encounter for screening for malignant neoplasm of lung in current smoker with 30 pack year history or greater Essential hypertension Fall Flu vaccine need GERD (gastroesophageal reflux disease) Grief Head injury Hx of emotional problems Hyperlipidemia IBS (irritable bowel syndrome) Muscle spasm Neuropathy Panic attack Post concussion syndrome Seasonal allergies Type 2 diabetes mellitus Urinary incontinence Vision problems Home Medications alprazolam 2 mg tablet 2 mg PO TID PRN Anxiety 03/24/19 [History Last Taken 08/22/20 04:30 2 MG] nebulizers (Altera Nebulizer System) #1 ea 09/06/20 [Rx Last Taken Unknown] fluticasone propionate 50 mcg/actuation nasal spray,suspension See Rx Instructions .Route PRN PRN Nasal Congestion #15.8 mL 11/16/21 [Rx Last Taken Unknown] blood-glucose meter ([employer] Verio Flex Meter) #1 ea 11/27/21 [Rx Last Taken Unknown] blood sugar diagnostic (Blood Glucose Test strips) #50 ea 11/28/21 [Rx Last Taken Unknown] blood-glucose meter #1 ea 11/28/21 [Rx Last Taken Unknown] lancets 32 gauge #100 ea 11/28/21 [Rx Last Taken Unknown] rosuvastatin 10 mg tablet (Crestor) 10 mg PO QHS 03/11/22 [History Last Taken Unknown] lamotrigine 200 mg tablet 200 mg PO BID 03/12/22 [History Last Taken Unknown] paroxetine HCl 30 mg tablet 30 mg PO DAILY 05/08/22 [History Last Taken Unknown] budesonide-formoterol HFA 160 mcg-4.5 mcg/actuation aerosol inhaler (Symbicort) 2 puff inhalation BID #10.2 grams 07/04/22 [Rx Last Taken Unknown] lisinopril 30 mg tablet 30 mg PO DAILY #90 tabs 07/04/22 [Rx Last Taken Unknown] ipratropium 0.5 mg-albuterol 3 mg (2.5 mg base)/3 mL nebulization soln 3 ml inhalation Q8H PRN shortness of breath or wheezing #90 mL 07/22/22 [Rx Last Taken Unknown] Ventolin HFA 90 mcg/actuation aerosol inhaler (albuterol sulfate) 2 puff inhalation Q6H PRN shortness of breath or wheezing #8 grams 08/21/22 [Rx Last Taken Unknown] empagliflozin 25 mg tablet (Jardiance) 25 mg PO QAM #90 tabs 08/23/22 [Rx Last Taken Unknown] blood sugar diagnostic ([employer] Verio test strips) #100 ea 08/28/22 [Rx Last Taken Unknown] ondansetron 4 mg disintegrating tablet 4 mg PO Q8H PRN nausea and vomiting #30 tabs 09/27/22 [Rx Last Taken Unknown] omeprazole 40 mg capsule,delayed release 40 mg PO DAILY #90 caps 10/28/22 [Rx Last Taken Unknown] oxycodone-acetaminophen 5 mg-325 mg tablet 1 tab PO Q6H PRN PRN pain 5 days #20 TABLETS 11/01/22 [Rx Last Taken Unknown] Allergy/AdvReac Type Severity Reaction Status Date / Time red dye Allergy Severe swelling Verified 11/01/22 11:49 carbidopa Allergy Unknown Verified 11/01/22 11:49 gabapentin Allergy Unknown Verified 11/01/22 11:49 latex Allergy Rash Verified 11/01/22 11:49 quetiapine fumarate Allergy Other Verified 11/01/22 11:49 [From Seroquel] topiramate [From Topamax] Allergy Hives Verified 11/01/22 11:49 tramadol HCl [From Ultram] Allergy Other Verified 11/01/22 11:49 amitriptyline AdvReac Vomiting Verified 11/01/22 11:49 aspirin AdvReac Upset Verified 11/01/22 11:49 Stomach codeine AdvReac Vomiting Verified 11/01/22 11:49 cyclobenzaprine HCl AdvReac Upset Verified 11/01/22 11:49 [From Flexeril] Stomach etodolac [Etodolac] AdvReac Vomiting Verified 11/01/22 11:49 hydrocodone bitartrate AdvReac Vomiting Verified 11/01/22 11:49 [From Vicodin] metformin AdvReac Diarrhea Verified 11/01/22 11:49 metoclopramide [From Reglan] AdvReac Other Verified 11/01/22 11:49 naproxen [From Naprosyn] AdvReac Upset Verified 11/01/22 11:49 Stomach propoxyphene napsylate AdvReac Vomiting Verified 11/01/22 11:49 [From Darvocet-N 100] Family History Mother Malignant hyperthermia due to anesthesia Angina pectoris Arthritis Bowel disease Myocardial infarction Heart disease Hypertension High cholesterol CVA (cerebral vascular accident) Father Asthma Arthritis Myocardial infarction Heart disease High cholesterol Hypertension CVA (cerebral vascular accident) Leukemia Diabetes Grandmother Lung cancer Grandfather Diabetes Grandmother Diabetes Surgical History History of History of cholecystectomy History of orthopedic surgery History of partial hysterectomy History of total hysterectomy S/P knee surgery Social History household members: none Smoking Status: Current every day smoker tobacco type: cigarettes Tobacco: How many years used: 46 Electronic Cigarette Use: not used how long ago did patient quit smokin+ pack year smoking history (1.5-2 ppd x 32 years, 3 ppd x 14 years). second hand exposure: Yes quit status: considering quitting counseling given: provider counseling alcohol intake: never substance use type: does not use what type of physical activity do you participate in: walking and bicycling ROS ROS ED Constitutional Constitutional ED: Denies chills or weight loss Eyes Eyes: Denies change in vision or diplopia ENT ENT ED: Denies ear pain, rhinorrhea or sore throat Cardiovascular Cardiovascular: Denies chest pain, orthopnea, palpitations or racing heartbeat Respiratory/Chest Respiratory/Chest: Denies cough, dyspnea or orthopnea Gastrointestinal Gastrointestinal: Denies abdominal pain, diarrhea, nausea or vomiting Genitourinary Genitourinary ED: Denies dysuria, hematuria or urinary frequency Musculoskeletal Musculoskeletal: Reports back pain; Denies arthralgias or myalgias Integumentary Denies abscess or rash Neurologic Neurologic: Reports paresthesias; Denies headache(s) or weakness Psychiatric Psychiatric: Denies anxiety, depression, suicidal ideation or suicidal thoughts Endocrine Endocrinology: Denies polydipsia, polyphagia or polyuria Allergic/Immunologic Allergic/Immunologic ED: Denies mouth swelling, tongue swelling or urticaria EXAM Physical Exam Const Vital Signs: 11/01/22 11:45 Temperature 97.3 F L Temperature Source Temporal Pulse Rate 99 Respiratory Rate 18 Blood Pressure 157/108 H Blood Pressure Mean 124 Pulse Ox 100 Oxygen Delivery Method Room Air Positive well nourished and well developed General Appearance ED: well developed HEENT Reports normocephalic, head/scalp atraumatic and moist mucous membranes Eyes PERRL and EOMs intact bilaterally Neck no lymphadenopathy, supple and no JVD Resp normal respiratory effort and clear to auscultation bilaterally Cardio regular rate, regular rhythm and no murmurs GI normal to inspection, nondistended, normoactive bowel sounds and non-tender Palpation: soft Back/Spine no CVA tenderness Back/Spine Narrative: Lumbar lumbar tissues are tender to palpation. I do not appreciate any swelling or abscess. Negative straight leg test Lumbar Spine / Lower Back: ROM limited and straight leg raise negative bilaterally Extremity normal to inspection General Extremety ED: Negative for edema General Extremity: Negative for edema Neuro oriented x3 and CN's II-XII intact bilaterally Sensorium / Orientation: alert Motor Exam: strength 5/5 throughout Deep Tendon Reflexes: Rt Patellar (L4): 2+, Lt Patellar (L4): 2+, Rt Ankle (S1): 2+ and Lt Ankle (S1): 2+ Deep Tendon Reflexes Back: Rt Patellar (L4): 2+, Lt Patellar (L4): 2+, Rt Ankle (S1): 2+ and Lt Ankle (S1): 2+ Psych mental status grossly normal Mood & Affect: Negative for depressed or tearful Skin no rashes or lesions noted and no wounds MDM MDM MDM Narrative Medical decision making narrative: Patient will be given a dose of morphine and Toradol here. I can write for short course of oxycodone until she can get in with her doctors. DOCK CLERK was checked Discharge Plan Triage Chief Complaint: Back ED Provider: Sabas Pierre Dx/Rx/DC Orders Clinical Impression: Spinal stenosis of lumbar region, Chronic back pain Instructions: ED Back Pain (Acute or Chronic) Prescriptions: New oxycodone-acetaminophen [oxycodone-acetaminophen] 5-325 mg tablet 1 tab PO Q6H PRN PRN (Reason: pain) 5 Days Qty: 20 0RF No Action lamotrigine 200 mg tablet 200 mg PO BID Label Comments: take 1 tablet by mouth twice a day lisinopril 30 mg tablet 30 mg PO DAILY Qty: 90 3RF paroxetine HCl 30 mg tablet 30 mg PO DAILY Label Comments: take 2 tablets by mouth once daily albuterol sulfate [Ventolin HFA] 90 mcg/actuation HFA aerosol inhaler 2 puff INHALATION Q6H PRN (Reason: shortness of breath or wheezing) Qty: 8 3RF alprazolam 2 MG tablet 2 mg PO TID PRN (Reason: Anxiety) rosuvastatin [Crestor] 10 mg tablet 10 mg PO QHS (DME) Altera Nebulizer System [facility] [place] See Rx Instructions .ROUTE .MEDSUPPLY Qty: 1 3RF Rx Instructions: nebulizer and supplies fluticasone propionate 50 mcg/actuation spray,suspension See Rx Instructions .Route PRN PRN (Reason: Nasal Congestion) Qty: 15.8 3RF Rx Instructions: USE 2 SPRAYS IN EACH NOSTRIL ONCE DAILY (DME) blood-glucose meter [OneTouch Verio Flex meter] [facility] [place] Rx Instructions .ROUTE .MEDSUPPLY Qty: 1 0RF Rx Instructions: As directed - Check blood sugar daily (DME) Blood Glucose Test Strip See Rx Instructions .ROUTE .MEDSUPPLY Qty: 50 3RF Rx Instructions: use to monitor blood sugar daily for type 2 DM (DME) blood-glucose meter [facility] [place] See Rx Instructions .ROUTE .MEDSUPPLY Qty: 1 0RF Rx Instructions: use to monitor blood sugar daily for type 2 DM (DME) lancets [address] [facility] [place] See Rx Instructions .ROUTE .MEDSUPPLY Qty: 100 3RF Rx Instructions: use to check blood sugar for type 2 DM budesonide-formoterol [Symbicort] 160-4.5 mcg/actuation HFA aerosol inhaler 2 puff INHALATION BID Qty: 10.2 3RF ipratropium-albuterol 0.5 mg-3 mg(2.5 mg base)/3 mL solution for nebulization 3 ml INHALATION Q8H PRN (Reason: shortness of breath or wheezing) Qty: 90 3RF Jardiance 25 mg tablet 25 mg PO QAM Qty: 90 3RF (DME) OneTouch Verio test strips Strip See Rx Instructions .ROUTE .MEDSUPPLY Qty: 100 3RF Rx Instructions: Check blood sugar daily ondansetron 4 mg tablet,disintegrating 4 mg PO Q8H PRN (Reason: nausea and vomiting) Qty: 30 3RF omeprazole 40 mg capsule,delayed release(DR/EC) 40 mg PO DAILY Qty: 90 3RF Primary Care Provider: Nola Rodriguez Referrals: Nola Rodriguez MD [Primary Care Provider] - As Needed Disposition Disposition: Home, Self Care
[2022-11-01] MEDS: Ketorolac 60 MG/2 ML Vial IM (12:18)
[2022-11-01] MEDS: morphine 10 MG/ML Syringe IM (12:26)
[2022-11-01 12:51] VITALS: BP 127/89; PULSE 88; RESP 16; O2SAT 95
== END 2022-11-01 12:53 | disposition home or self-care (01) ==
PROVIDERS: Emergency Provider Emergency Medicine; PCP Internal Medicine; Visit Provider Emergency Medicine
DX: M48.061 Spinal stenosis, lumbar region without neurogenic claudication (principal); E11.40 Type 2 diabetes mellitus with diabetic neuropathy, unspecified; G89.29 Other chronic pain; F17.210 Nicotine dependence, cigarettes, uncomplicated; I10 Essential (primary) hypertension; E78.5 Hyperlipidemia, unspecified; M54.9 Dorsalgia, unspecified
CPT/HCPCS: 96372; 99282

== ENCOUNTER 2023-01-17 12:37 | Emergency (ER) | payer MEDICAID, SELFPAY ==
[2023-01-17 12:37] VITALS: BP 132/96; PULSE 110; RESP 16; TEMP 36.1; O2SAT 98; BMI 26.4
--- NOTE | 2023-01-17 15:47 | ED.VIS.BACK ---
HPI History of Present Illness Chief Complaint: Back Informant: patient Narrative Narrative: Presenting worsening back pain the past few days not trauma. History of chronic back pain. She has seen pain management Dr. Garcia with injections no relief. Reports hernia and stenosis. She has seen Dr. Fuchs, she missed her appointment yesterday. She states she states is getting need surgery now. She has had flares previously. No loss of bowel or bladder control. Typically in the ED she states she has Toradol and morphine which helped her symptoms. She uses a heating pad she takes Advil at home. She states she has nausea due to pain and she would like to Zofran injection as she is has oral pills at home. She is a diabetic diet controlled, she states her sugars 200 at home she wants this rechecked. Prior similar symptoms: Yes [facility] Medical History Abnormal EKG Acute exacerbation of chronic low back pain Anxiety and depression Asthma Back pain Carpal tunnel syndrome Chronic back pain Chronic headaches Chronic radicular lumbar pain Concussion Cough Easy bruising Encounter for screening for malignant neoplasm of lung in current smoker with 30 pack year history or greater Essential hypertension Fall Flu vaccine need GERD (gastroesophageal reflux disease) Grief Head injury Hx of emotional problems Hyperlipidemia IBS (irritable bowel syndrome) Muscle spasm Neuropathy Panic attack Post concussion syndrome Seasonal allergies Type 2 diabetes mellitus Urinary incontinence Vision problems Home Medications alprazolam 2 mg tablet 2 mg PO TID PRN Anxiety 03/24/19 [History Last Taken 08/22/20 04:30 2 MG] nebulizers (Altera Nebulizer System) #1 ea 09/06/20 [Rx Last Taken Unknown] fluticasone propionate 50 mcg/actuation nasal spray,suspension See Rx Instructions .Route PRN PRN Nasal Congestion #15.8 mL 11/16/21 [Rx Last Taken Unknown] blood-glucose meter (BitLeapuch Verio Flex Meter) #1 ea 11/27/21 [Rx Last Taken Unknown] blood sugar diagnostic (Blood Glucose Test strips) #50 ea 11/28/21 [Rx Last Taken Unknown] blood-glucose meter #1 ea 11/28/21 [Rx Last Taken Unknown] lancets 32 gauge #100 ea 11/28/21 [Rx Last Taken Unknown] lamotrigine 200 mg tablet 200 mg PO BID 03/12/22 [History Last Taken Unknown] paroxetine HCl 30 mg tablet 30 mg PO DAILY 05/08/22 [History Last Taken Unknown] lisinopril 30 mg tablet 30 mg PO DAILY #90 tabs 07/04/22 [Rx Last Taken Unknown] ipratropium 0.5 mg-albuterol 3 mg (2.5 mg base)/3 mL nebulization soln 3 ml inhalation Q8H PRN shortness of breath or wheezing #90 mL 07/22/22 [Rx Last Taken Unknown] empagliflozin 25 mg tablet (Jardiance) 25 mg PO QAM #90 tabs 08/23/22 [Rx Last Taken Unknown] blood sugar diagnostic (BitLeapuch Verio test strips) #100 ea 08/28/22 [Rx Last Taken Unknown] ondansetron 4 mg disintegrating tablet 4 mg PO Q8H PRN nausea and vomiting #30 tabs 09/27/22 [Rx Last Taken Unknown] omeprazole 40 mg capsule,delayed release 40 mg PO DAILY #90 caps 10/28/22 [Rx Last Taken Unknown] oxycodone-acetaminophen 5 mg-325 mg tablet 1 tab PO Q6H PRN PRN pain 5 days #20 TABLETS 11/01/22 [Rx Last Taken Unknown] budesonide-formoterol HFA 160 mcg-4.5 mcg/actuation aerosol inhaler (Symbicort) 2 puff inhalation BID #10.2 grams 11/04/22 [Rx Last Taken Unknown] rosuvastatin 10 mg tablet See Rx Instructions .Route .COMPLEX #90 TABLETS 11/05/22 [Rx Last Taken Unknown] Ventolin HFA 90 mcg/actuation aerosol inhaler (albuterol sulfate) 2 puff inhalation Q6H PRN shortness of breath or wheezing #8 grams 12/09/22 [Rx Last Taken Unknown] Allergy/AdvReac Type Severity Reaction Status Date / Time red dye Allergy Severe swelling Verified 01/08/23 11:38 carbidopa Allergy Unknown Verified 01/08/23 11:38 gabapentin Allergy Unknown Verified 01/08/23 11:38 latex Allergy Rash Verified 01/08/23 11:38 quetiapine fumarate Allergy Other Verified 01/08/23 11:38 [From Seroquel] topiramate [From Topamax] Allergy Hives Verified 01/08/23 11:38 tramadol HCl [From Ultram] Allergy Other Verified 01/08/23 11:38 amitriptyline AdvReac Vomiting Verified 01/08/23 11:38 aspirin AdvReac Upset Verified 01/08/23 11:38 Stomach codeine AdvReac Vomiting Verified 01/08/23 11:38 cyclobenzaprine HCl AdvReac Upset Verified 01/08/23 11:38 [From Flexeril] Stomach etodolac [Etodolac] AdvReac Vomiting Verified 01/08/23 11:38 hydrocodone bitartrate AdvReac Vomiting Verified 01/08/23 11:38 [From Vicodin] metformin AdvReac Diarrhea Verified 01/08/23 11:38 metoclopramide [From Reglan] AdvReac Other Verified 01/08/23 11:38 naproxen [From Naprosyn] AdvReac Upset Verified 01/08/23 11:38 Stomach propoxyphene napsylate AdvReac Vomiting Verified 01/08/23 11:38 [From Darvocet-N 100] Family History Mother Malignant hyperthermia due to anesthesia Angina pectoris Arthritis Bowel disease Myocardial infarction Heart disease Hypertension High cholesterol CVA (cerebral vascular accident) Father Asthma Arthritis Myocardial infarction Heart disease High cholesterol Hypertension CVA (cerebral vascular accident) Leukemia Diabetes Grandmother Lung cancer Grandfather Diabetes Grandmother Diabetes Surgical History History of History of cholecystectomy History of orthopedic surgery History of partial hysterectomy History of total hysterectomy S/P knee surgery Social History household members: none Smoking Status: Current every day smoker tobacco type: cigarettes Tobacco: How many years used: 46 Electronic Cigarette Use: not used how long ago did patient quit smokin+ pack year smoking history (1.5-2 ppd x 32 years, 3 ppd x 14 years). second hand exposure: Yes quit status: considering quitting counseling given: provider counseling alcohol intake: never substance use type: does not use what type of physical activity do you participate in: walking and bicycling ROS ROS ED Constitutional Constitutional ED: Denies chills, fever(s) or sweats Eyes Eyes: Denies change in vision ENT ENT ED: Denies dysphagia or sore throat Cardiovascular Cardiovascular: Denies chest pain, leg edema, palpitations or racing heartbeat Respiratory/Chest Respiratory/Chest: Denies cough, dyspnea or dyspnea on exertion Gastrointestinal Gastrointestinal: Reports nausea; Denies abdominal pain, diarrhea or vomiting Genitourinary Genitourinary ED: Denies dysuria, hematuria or urinary frequency Musculoskeletal Musculoskeletal: Reports back pain; Denies extremity pain or neck pain Integumentary Denies rash or wounds Neurologic Neurologic: Denies headache(s), paresthesias or weakness EXAM Physical Exam Const Vital Signs: 01/17/23 12:37 Temperature 97.0 F L Temperature Source Temporal Pulse Rate 110 H Respiratory Rate 16 Blood Pressure 132/96 H Blood Pressure Mean 108 Pulse Ox 98 Oxygen Delivery Method Room Air Positive well nourished and well developed Constitutional Narrative: Tearful, nontoxic General Appearance ED: well developed HEENT Reports moist mucous membranes normocephalic and atraumatic Eyes PERRL, EOMs intact bilaterally and conjunctivae normal General Eye ED: Yes normal appearance of both eyes Neck no lymphadenopathy and supple General: Negative for tenderness Chest Wall Chest: Negative for tenderness Resp normal respiratory effort and normal air movement Effort and Inspection: symmetric chest movement; Negative for respiratory distress Cardio regular rate, regular rhythm and no murmurs Peripheral Pulses: pulses 2+ throughout GI normal to inspection, nondistended, normoactive bowel sounds and non-tender Palpation: Negative for guarding or rebound tenderness present Back/Spine no CVA tenderness Back/Spine Narrative: Tender palpation right lower lumbar, there is no rash. No previous scars. Straight leg test negative. 1+ patellar reflex bilaterally. Extremity normal to inspection General Extremety ED: Negative for edema or tenderness General Extremity: Negative for edema Neuro oriented x3 and no sensory deficits noted Sensorium / Orientation: awake and alert Skin no rashes or lesions noted and no wounds MDM MDM MDM Narrative Medical decision making narrative: Interventions / MDM: Differential diagnosis: Acute on chronic back pain, history of disc herniation, Diagnosis considered but do not suspect: No cauda equina symptoms. My EKG interpretation: N/A Imaging independently reviewed and interpreted by myself: N/A External documents reviewed: N/A Test considered but not ordered:N/A ED course: Patient with no cauda equina symptoms. She was treated with IM Zofran Toradol and morphine. Blood glucose 130. She was monitored. Re-evaluation: stable and improved symptoms she is walking the room a lot more comfortable and smiling. She is discharged follow-up with neurosurgery. Disposition discussed with patient/family/significant other: Patient Case discussed with consulting clinician: N/A Discharge Plan Triage Chief Complaint: Back ED Provider: Lasha Madden Dx/Rx/DC Orders Clinical Impression: Acute exacerbation of chronic low back pain, Type 2 diabetes mellitus Instructions: ED Back Pain (Acute or Chronic) Prescriptions: No Action lamotrigine 200 mg tablet 200 mg PO BID Label Comments: take 1 tablet by mouth twice a day lisinopril 30 mg tablet 30 mg PO DAILY Qty: 90 3RF paroxetine HCl 30 mg tablet 30 mg PO DAILY Label Comments: take 2 tablets by mouth once daily alprazolam 2 MG tablet 2 mg PO TID PRN (Reason: Anxiety) oxycodone-acetaminophen [oxycodone-acetaminophen] 5-325 mg tablet 1 tab PO Q6H PRN PRN (Reason: pain) 5 Days Qty: 20 0RF (DME) Altera Nebulizer System Mis See Rx Instructions .ROUTE .MEDSUPPLY Qty: 1 3RF Rx Instructions: nebulizer and supplies fluticasone propionate 50 mcg/actuation spray,suspension See Rx Instructions .Route PRN PRN (Reason: Nasal Congestion) Qty: 15.8 3RF Rx Instructions: USE 2 SPRAYS IN EACH NOSTRIL ONCE DAILY (DME) blood-glucose meter [OneTouch Verio Flex meter] [facility] [place] See Rx Instructions .ROUTE .MEDSUPPLY Qty: 1 0RF Rx Instructions: As directed - Check blood sugar daily (DME) Blood Glucose Test Strip See Rx Instructions .ROUTE .MEDSUPPLY Qty: 50 3RF Rx Instructions: use to monitor blood sugar daily for type 2 DM (DME) blood-glucose meter Mis See Rx Instructions .ROUTE .MEDSUPPLY Qty: 1 0RF Rx Instructions: use to monitor blood sugar daily for type 2 DM (DME) lancets 32 gauge misc See Rx Instructions .ROUTE .MEDSUPPLY Qty: 100 3RF Rx Instructions: use to check blood sugar for type 2 DM ipratropium-albuterol 0.5 mg-3 mg(2.5 mg base)/3 mL solution for nebulization 3 ml INHALATION Q8H PRN (Reason: shortness of breath or wheezing) Qty: 90 3RF Jardiance 25 mg tablet 25 mg PO QAM Qty: 90 3RF (DME) OneTouch Verio test strips Strip See Rx Instructions .ROUTE .MEDSUPPLY Qty: 100 3RF Rx Instructions: Check blood sugar daily ondansetron 4 mg tablet,disintegrating 4 mg PO Q8H PRN (Reason: nausea and vomiting) Qty: 30 3RF omeprazole 40 mg capsule,delayed release(DR/EC) 40 mg PO DAILY Qty: 90 3RF budesonide-formoterol [Symbicort] 160-4.5 mcg/actuation HFA aerosol inhaler 2 puff INHALATION BID Qty: 10.2 3RF rosuvastatin 10 mg tablet See Rx Instructions .ROUTE .COMPLEX Qty: 90 0RF Dose Instruction: take 1 tablet by mouth once daily Rx Instructions: take 1 tablet by mouth once daily albuterol sulfate [Ventolin HFA] 90 mcg/actuation HFA aerosol inhaler 2 puff INHALATION Q6H PRN (Reason: shortness of breath or wheezing) Qty: 8 3RF Primary Care Provider: Coral Monae NP Referrals: Garcia Fuchs DO [[facility] Staff - Active Staff] - 3-5 Days [facility] Doctor,Out of [Non-Staff] - Disposition Disposition: Home, Self Care
[2023-01-17] MEDS: Ondansetron 4 MG/2 ML Vial IM (16:01)
[2023-01-17] MEDS: Morphine 4 MG/ML Syringe IM (16:01)
[2023-01-17] MEDS: Ketorolac 30 MG/ML Syringe IM (16:01)
[2023-01-17 16:16] VITALS: PULSE 77; RESP 16; O2SAT 97
[2023-01-17 16:25] LABS: Bedside Glucose 133 mg/dL (74-106)
== END 2023-01-17 16:23 | disposition home or self-care (01) ==
PROVIDERS: Emergency Provider Emergency Medicine; PCP Internal Medicine; Visit Provider Emergency Medicine
DX: M54.50 Low back pain, unspecified (principal); E11.40 Type 2 diabetes mellitus with diabetic neuropathy, unspecified; G89.29 Other chronic pain; F17.210 Nicotine dependence, cigarettes, uncomplicated; E78.5 Hyperlipidemia, unspecified; I10 Essential (primary) hypertension
CPT/HCPCS: 82962; 96372; 99282; J2405

== ENCOUNTER 2023-03-06 13:54 | Emergency (ER) | payer MEDICAID, SELFPAY ==
[2023-03-06 13:55] VITALS: BP 141/84; PULSE 91; RESP 16; TEMP 36.2; O2SAT 100; BMI 25.8
--- NOTE | 2023-03-06 14:35 | ED.VIS.BACK ---
HPI History of Present Illness Chief Complaint: Back Onset/Context/Timing Onset: Days Chronic pain exacerbated by: Fall Injury: fall Timing: Continuous Quality: - (Stabbing) Location: Lumbar, Buttock, Right Leg and Left Leg Worsened by: improves with Movement and Ambulation Relieved by: - (Heating pad) Associated Symptoms Associated Symptoms: Radiation to Right Leg, Radiation to Left Leg and Abdominal Pain; Negative for Numbness, Tingling, Fever, Dysuria, Unable to Ambulate, Unable to Transfer, Urinary Retention, Urinary Incontinence, Constipation or Fecal Incontinence Narrative Narrative: Patient presents with back pain that became worse over the past couple days. Patient states she had a fall recently. Patient states her pain is constant since she fell. Patient states her pain is stabbing. Patient states she has a history of chronic back pain and sciatica. Patient states her pain is over the lower lumbar area and radiates to both buttocks and both lower extremities. Patient states it is worse with certain movements and ambulation. Patient states it is better with a heating pad. Patient states she was having some abdominal pain when she had nausea and vomiting. Patient denies any numbness or tingling. Patient denies any paresthesias or weakness. Patient denies any bowel or bladder changes. Patient denies any saddle anesthesia. [facility] Medical History Abnormal EKG Acute exacerbation of chronic low back pain Anxiety and depression Asthma Back pain Carpal tunnel syndrome Chronic back pain Chronic headaches Chronic radicular lumbar pain Concussion Cough Easy bruising Encounter for screening for malignant neoplasm of lung in current smoker with 30 pack year history or greater Essential hypertension Fall Flu vaccine need GERD (gastroesophageal reflux disease) Grief Head injury Hx of emotional problems Hyperlipidemia IBS (irritable bowel syndrome) Muscle spasm Neuropathy Panic attack Post concussion syndrome Seasonal allergies Type 2 diabetes mellitus Urinary incontinence Vision problems Home Medications alprazolam 2 mg tablet 2 mg PO TID PRN Anxiety 03/24/19 [History Last Taken 08/22/20 04:30 2 MG] nebulizers (Altera Nebulizer System) #1 ea 09/06/20 [Rx Last Taken Unknown] fluticasone propionate 50 mcg/actuation nasal spray,suspension See Rx Instructions .Route PRN PRN Nasal Congestion #15.8 mL 11/16/21 [Rx Last Taken Unknown] blood-glucose meter (OneTouch Verio Flex Meter) #1 ea 11/27/21 [Rx Last Taken Unknown] blood sugar diagnostic (Blood Glucose Test strips) #50 ea 11/28/21 [Rx Last Taken Unknown] blood-glucose meter #1 ea 11/28/21 [Rx Last Taken Unknown] lancets 32 gauge #100 ea 11/28/21 [Rx Last Taken Unknown] lamotrigine 200 mg tablet 200 mg PO BID 03/12/22 [History Last Taken Unknown] paroxetine HCl 30 mg tablet 30 mg PO DAILY 05/08/22 [History Last Taken Unknown] lisinopril 30 mg tablet 30 mg PO DAILY #90 tabs 07/04/22 [Rx Last Taken Unknown] ipratropium 0.5 mg-albuterol 3 mg (2.5 mg base)/3 mL nebulization soln 3 ml inhalation Q8H PRN shortness of breath or wheezing #90 mL 07/22/22 [Rx Last Taken Unknown] empagliflozin 25 mg tablet (Jardiance) 25 mg PO QAM #90 tabs 08/23/22 [Rx Last Taken Unknown] blood sugar diagnostic (OneTouch Verio test strips) #100 ea 08/28/22 [Rx Last Taken Unknown] ondansetron 4 mg disintegrating tablet 4 mg PO Q8H PRN nausea and vomiting #30 tabs 09/27/22 [Rx Last Taken Unknown] omeprazole 40 mg capsule,delayed release 40 mg PO DAILY #90 caps 10/28/22 [Rx Last Taken Unknown] budesonide-formoterol HFA 160 mcg-4.5 mcg/actuation aerosol inhaler (Symbicort) 2 puff inhalation BID #10.2 grams 11/04/22 [Rx Last Taken Unknown] rosuvastatin 10 mg tablet See Rx Instructions .Route .COMPLEX #90 TABLETS 11/05/22 [Rx Last Taken Unknown] Ventolin HFA 90 mcg/actuation aerosol inhaler (albuterol sulfate) 2 puff inhalation Q6H PRN shortness of breath or wheezing #8 grams 12/09/22 [Rx Last Taken Unknown] Allergy/AdvReac Type Severity Reaction Status Date / Time red dye Allergy Severe swelling Verified 02/17/23 13:21 carbidopa Allergy Unknown Verified 02/17/23 13:21 gabapentin Allergy Unknown Verified 02/17/23 13:21 latex Allergy Rash Verified 02/17/23 13:21 quetiapine fumarate Allergy Other Verified 02/17/23 13:21 [From Seroquel] topiramate [From Topamax] Allergy Hives Verified 02/17/23 13:21 tramadol HCl [From Ultram] Allergy Other Verified 02/17/23 13:21 amitriptyline AdvReac Vomiting Verified 02/17/23 13:21 aspirin AdvReac Upset Verified 02/17/23 13:21 Stomach codeine AdvReac Vomiting Verified 02/17/23 13:21 cyclobenzaprine HCl AdvReac Upset Verified 02/17/23 13:21 [From Flexeril] Stomach etodolac [Etodolac] AdvReac Vomiting Verified 02/17/23 13:21 hydrocodone bitartrate AdvReac Vomiting Verified 02/17/23 13:21 [From Vicodin] metformin AdvReac Diarrhea Verified 02/17/23 13:21 metoclopramide [From Reglan] AdvReac Other Verified 02/17/23 13:21 naproxen [From Naprosyn] AdvReac Upset Verified 02/17/23 13:21 Stomach propoxyphene napsylate AdvReac Vomiting Verified 02/17/23 13:21 [From Darvocet-N 100] Family History Mother Malignant hyperthermia due to anesthesia Angina pectoris Arthritis Bowel disease Myocardial infarction Heart disease Hypertension High cholesterol CVA (cerebral vascular accident) Father Asthma Arthritis Myocardial infarction Heart disease High cholesterol Hypertension CVA (cerebral vascular accident) Leukemia Diabetes Grandmother Lung cancer Grandfather Diabetes Grandmother Diabetes Surgical History History of History of cholecystectomy History of orthopedic surgery History of partial hysterectomy History of total hysterectomy S/P knee surgery Social History household members: none Smoking Status: Current every day smoker tobacco type: cigarettes Tobacco: How many years used: 46 Electronic Cigarette Use: not used how long ago did patient quit smokin+ pack year smoking history (1.5-2 ppd x 32 years, 3 ppd x 14 years). second hand exposure: Yes quit status: considering quitting counseling given: provider counseling alcohol intake: never substance use type: does not use what type of physical activity do you participate in: walking and bicycling ROS ROS ED Constitutional Constitutional ED: Denies chills or fever(s) Eyes Eyes: Denies blurry vision or change in vision ENT ENT ED: Denies rhinorrhea or sore throat Cardiovascular Cardiovascular: Denies chest pain or palpitations Respiratory/Chest Respiratory/Chest: Denies cough or dyspnea Gastrointestinal Gastrointestinal: Reports nausea and vomiting Genitourinary Genitourinary ED: Denies dysuria or hematuria Musculoskeletal Musculoskeletal: Reports back pain; Denies neck pain Integumentary Denies abscess or rash Neurologic Neurologic: Denies headache(s) or weakness Allergic/Immunologic Allergic/Immunologic ED: Denies mouth swelling or urticaria EXAM Physical Exam Const Vital Signs: 03/06/23 13:55 Temperature 97.1 F L Temperature Source Temporal Pulse Rate 91 Respiratory Rate 16 Blood Pressure 141/84 H Blood Pressure Mean 103 Pulse Ox 100 Oxygen Delivery Method Room Air Positive well nourished and well developed General Appearance ED: well developed and NAD HEENT Reports moist mucous membranes Neck supple and no JVD Back/Spine Back/Spine Narrative: There is tenderness and mild spasm of the lower lumbar paraspinal muscles. There is no edema or ecchymosis. There is no bony crepitance or step-off noted. Range of motion was limited in all motions of the lumbar spine secondary to pain. Strength is 5/5 bilaterally in lower extremities. There are no sensory deficits noted. Deep tendon reflexes are 2/4 bilaterally in the lower extremities. Lumbar Spine / Lower Back: ROM limited and straight leg raise negative bilaterally Extremity normal to inspection General Extremety ED: Negative for edema or tenderness General Extremity: Negative for edema Neuro oriented x3 and no sensory deficits noted Sensorium / Orientation: alert Motor Exam: strength 5/5 throughout Deep Tendon Reflexes: Rt Patellar (L4): 2+, Lt Patellar (L4): 2+, Rt Ankle (S1): 2+ and Lt Ankle (S1): 2+ Deep Tendon Reflexes Back: Rt Patellar (L4): 2+, Lt Patellar (L4): 2+, Rt Ankle (S1): 2+ and Lt Ankle (S1): 2+ Psych mental status grossly normal Skin no rashes or lesions noted MDM MDM MDM Narrative Medical decision making narrative: Patient was advised that this is most likely a muscular strain from the fall. I do not feel x-rays are necessary at this time. Patient is agreeable with this. Patient was given injection of Toradol and morphine here. Patient was instructed to continue her pain medications as previously prescribed. I do not feel patient requires prescription analgesics at this time. Patient was instructed to follow-up with her primary care physician in 3 to 5 days. Patient understood and was agreeable with the plan. All questions were answered. Discharge Plan Triage Chief Complaint: Back ED Provider: Kevin Traore Dx/Rx/DC Orders Clinical Impression: Chronic back pain, Low back pain, Fall Instructions: ED Back Sprain/Strain, ED Chronic Pain, ED Sciatica Prescriptions: No Action lamotrigine 200 mg tablet 200 mg PO BID Label Comments: take 1 tablet by mouth twice a day lisinopril 30 mg tablet 30 mg PO DAILY Qty: 90 3RF paroxetine HCl 30 mg tablet 30 mg PO DAILY Label Comments: take 2 tablets by mouth once daily alprazolam 2 MG tablet 2 mg PO TID PRN (Reason: Anxiety) (DME) Altera Nebulizer System [facility] [place] See Rx Instructions .ROUTE .MEDSUPPLY Qty: 1 3RF Rx Instructions: nebulizer and supplies fluticasone propionate 50 mcg/actuation spray,suspension See Rx Instructions .Route PRN PRN (Reason: Nasal Congestion) Qty: 15.8 3RF Rx Instructions: USE 2 SPRAYS IN EACH NOSTRIL ONCE DAILY (DME) blood-glucose meter [OneTouch Verio Flex meter] [facility] [place] See Rx Instructions .ROUTE .MEDSUPPLY Qty: 1 0RF Rx Instructions: As directed - Check blood sugar daily (DME) Blood Glucose Test Strip See Rx Instructions .ROUTE .MEDSUPPLY Qty: 50 3RF Rx Instructions: use to monitor blood sugar daily for type 2 DM (DME) blood-glucose meter [facility] [place] See Rx Instructions .ROUTE .MEDSUPPLY Qty: 1 0RF Rx Instructions: use to monitor blood sugar daily for type 2 DM (DME) lancets 32 gauge [facility] [place] See Rx Instructions .ROUTE .MEDSUPPLY Qty: 100 3RF Rx Instructions: use to check blood sugar for type 2 DM ipratropium-albuterol 0.5 mg-3 mg(2.5 mg base)/3 mL solution for nebulization 3 ml INHALATION Q8H PRN (Reason: shortness of breath or wheezing) Qty: 90 3RF Jardiance 25 mg tablet 25 mg PO QAM Qty: 90 3RF (DME) OneTouch Verio test strips Strip See Rx Instructions .ROUTE .MEDSUPPLY Qty: 100 3RF Rx Instructions: Check blood sugar daily ondansetron 4 mg tablet,disintegrating 4 mg PO Q8H PRN (Reason: nausea and vomiting) Qty: 30 3RF omeprazole 40 mg capsule,delayed release(DR/EC) 40 mg PO DAILY Qty: 90 3RF budesonide-formoterol [Symbicort] 160-4.5 mcg/actuation HFA aerosol inhaler 2 puff INHALATION BID Qty: 10.2 3RF rosuvastatin 10 mg tablet See Rx Instructions .ROUTE .COMPLEX Qty: 90 0RF Dose Instruction: take 1 tablet by mouth once daily Rx Instructions: take 1 tablet by mouth once daily albuterol sulfate [Ventolin HFA] 90 mcg/actuation HFA aerosol inhaler 2 puff INHALATION Q6H PRN (Reason: shortness of breath or wheezing) Qty: 8 3RF Primary Care Provider: Coral Monae NP Referrals: Coral Monae MEDIATION COMMISSIONER, MEDIATION COMMISSIONER-C [Primary Care Provider] - 3-5 Days Activity Restrictions/Additional Instructions: Follow-up with your primary care physician in 3 to 5 days. Continue your medications as previously prescribed. Continue taking Tylenol and ibuprofen as needed for pain. Disposition Disposition: Home, Self Care
[2023-03-06] MEDS: Ketorolac 60 MG/2 ML Vial IM (14:53)
[2023-03-06] MEDS: Morphine 4 MG/ML Syringe IM (14:53)
[2023-03-06 15:24] VITALS: BP 148/72; PULSE 80; RESP 16; O2SAT 96
== END 2023-03-06 15:39 | disposition home or self-care (01) ==
PROVIDERS: Emergency Provider Emergency Medicine; PCP Internal Medicine; Visit Provider Emergency Medicine
DX: M54.40 Lumbago with sciatica, unspecified side (principal); E11.40 Type 2 diabetes mellitus with diabetic neuropathy, unspecified; G89.29 Other chronic pain; I10 Essential (primary) hypertension; F17.210 Nicotine dependence, cigarettes, uncomplicated; E78.5 Hyperlipidemia, unspecified
CPT/HCPCS: 96372; 99282

== ENCOUNTER 2023-03-11 14:28 | Emergency (ER) | payer MEDICAID, SELFPAY ==
[2023-03-11 14:29] VITALS: BP 154/102; PULSE 115; RESP 18; TEMP 36.1; O2SAT 98; BMI 26.0
--- NOTE | 2023-03-11 14:52 | EX.ED.DYSGE1 ---
HPI History of Present Illness Chief Complaint: General Illness Narrative Narrative: Patient is a 57-year-old female who is presenting to the ER today with multiple complaints. Patient is complaining of acute on chronic lower back pain. She complaining of acute on chronic bilateral sciatica. Patient is having soft stool, no bowel or bladder changes. No signs of saddle anesthesia or cauda equina. Patient has no new injury, no new fall. Patient was just here in the ER in the last week for similar symptoms. Patient states her blood pressure has been elevated as well secondary to pain and anxiety. Patient says that she called her PCP and she was told to come to the ER secondary to elevated blood pressure. Patient is also hoping to get pain relief as well. Patient says she been to the ER several times in the past couple months for acute on chronic pain. Patient had epidurals done 3 months ago by pain management that did not help. Patient has been told that she needs to have lumbar surgery, but they will not perform any surgery until she stop smoking for 6 weeks. Patient is very tearful and upset about quitting smoking for surgery. Patient has an orthopedic surgeon as well, she saw him recently to see if something could be done with the left knee that causes her chronic pain that could help with her lower back. Patient has no headache. No chest pain or shortness of breath. Patient has asymptomatic hypertension at this time right now, most likely secondary to pain. Patient has no abdominal pain, nausea, vomiting, or any other acute complaints [facility] Medical History Abnormal EKG Acute exacerbation of chronic low back pain Anxiety and depression Asthma Back pain Carpal tunnel syndrome Chronic back pain Chronic headaches Chronic radicular lumbar pain Concussion Cough Easy bruising Encounter for screening for malignant neoplasm of lung in current smoker with 30 pack year history or greater Essential hypertension Fall Flu vaccine need GERD (gastroesophageal reflux disease) Grief Head injury Hx of emotional problems Hyperlipidemia IBS (irritable bowel syndrome) Muscle spasm Neuropathy Panic attack Post concussion syndrome Seasonal allergies Type 2 diabetes mellitus Urinary incontinence Vision problems Home Medications alprazolam 2 mg tablet 2 mg PO TID PRN Anxiety 03/24/19 [History Last Taken 08/22/20 04:30 2 MG] nebulizers (Altera Nebulizer System) #1 ea 09/06/20 [Rx Last Taken Unknown] fluticasone propionate 50 mcg/actuation nasal spray,suspension See Rx Instructions .Route PRN PRN Nasal Congestion #15.8 mL 11/16/21 [Rx Last Taken Unknown] blood-glucose meter (OneTouch Verio Flex Meter) #1 ea 11/27/21 [Rx Last Taken Unknown] blood sugar diagnostic (Blood Glucose Test strips) #50 ea 11/28/21 [Rx Last Taken Unknown] blood-glucose meter #1 ea 11/28/21 [Rx Last Taken Unknown] lancets 32 gauge #100 ea 11/28/21 [Rx Last Taken Unknown] lamotrigine 200 mg tablet 200 mg PO BID 03/12/22 [History Last Taken Unknown] paroxetine HCl 30 mg tablet 30 mg PO DAILY 05/08/22 [History Last Taken Unknown] lisinopril 30 mg tablet 30 mg PO DAILY #90 tabs 07/04/22 [Rx Last Taken Unknown] ipratropium 0.5 mg-albuterol 3 mg (2.5 mg base)/3 mL nebulization soln 3 ml inhalation Q8H PRN shortness of breath or wheezing #90 mL 07/22/22 [Rx Last Taken Unknown] empagliflozin 25 mg tablet (Jardiance) 25 mg PO QAM #90 tabs 08/23/22 [Rx Last Taken Unknown] blood sugar diagnostic (OneTouch Verio test strips) #100 ea 08/28/22 [Rx Last Taken Unknown] ondansetron 4 mg disintegrating tablet 4 mg PO Q8H PRN nausea and vomiting #30 tabs 09/27/22 [Rx Last Taken Unknown] omeprazole 40 mg capsule,delayed release 40 mg PO DAILY #90 caps 10/28/22 [Rx Last Taken Unknown] budesonide-formoterol HFA 160 mcg-4.5 mcg/actuation aerosol inhaler (Symbicort) 2 puff inhalation BID #10.2 grams 11/04/22 [Rx Last Taken Unknown] rosuvastatin 10 mg tablet See Rx Instructions .Route .COMPLEX #90 TABLETS 11/05/22 [Rx Last Taken Unknown] Ventolin HFA 90 mcg/actuation aerosol inhaler (albuterol sulfate) 2 puff inhalation Q6H PRN shortness of breath or wheezing #8 grams 12/09/22 [Rx Last Taken Unknown] Allergy/AdvReac Type Severity Reaction Status Date / Time red dye Allergy Severe swelling Verified 03/11/23 14:30 carbidopa Allergy Unknown Verified 03/11/23 14:30 gabapentin Allergy Unknown Verified 03/11/23 14:30 latex Allergy Rash Verified 03/11/23 14:30 quetiapine fumarate Allergy Other Verified 03/11/23 14:30 [From Seroquel] topiramate [From Topamax] Allergy Hives Verified 03/11/23 14:30 tramadol HCl [From Ultram] Allergy Other Verified 03/11/23 14:30 amitriptyline AdvReac Vomiting Verified 03/11/23 14:30 aspirin AdvReac Upset Verified 03/11/23 14:30 Stomach codeine AdvReac Vomiting Verified 03/11/23 14:30 cyclobenzaprine HCl AdvReac Upset Verified 03/11/23 14:30 [From Flexeril] Stomach etodolac [Etodolac] AdvReac Vomiting Verified 03/11/23 14:30 hydrocodone bitartrate AdvReac Vomiting Verified 03/11/23 14:30 [From Vicodin] metformin AdvReac Diarrhea Verified 03/11/23 14:30 metoclopramide [From Reglan] AdvReac Other Verified 03/11/23 14:30 naproxen [From Naprosyn] AdvReac Upset Verified 03/11/23 14:30 Stomach propoxyphene napsylate AdvReac Vomiting Verified 03/11/23 14:30 [From Darvocet-N 100] Family History Mother Malignant hyperthermia due to anesthesia Angina pectoris Arthritis Bowel disease Myocardial infarction Heart disease Hypertension High cholesterol CVA (cerebral vascular accident) Father Asthma Arthritis Myocardial infarction Heart disease High cholesterol Hypertension CVA (cerebral vascular accident) Leukemia Diabetes Grandmother Lung cancer Grandfather Diabetes Grandmother Diabetes Surgical History History of History of cholecystectomy History of orthopedic surgery History of partial hysterectomy History of total hysterectomy S/P knee surgery Social History household members: none Smoking Status: Current every day smoker tobacco type: cigarettes Tobacco: How many years used: 46 Electronic Cigarette Use: not used how long ago did patient quit smokin+ pack year smoking history (1.5-2 ppd x 32 years, 3 ppd x 14 years). second hand exposure: Yes quit status: considering quitting counseling given: provider counseling alcohol intake: never substance use type: does not use what type of physical activity do you participate in: walking and bicycling ROS ROS ED ROS Narrative REVIEW OF SYSTEMS: Unless otherwise stated in this report the patient's positive and negative responses for review of systems for constitutional, eyes, ENT, cardiovascular, respiratory, gastrointestinal, neurological, , musculoskeletal, and integument systems and related systems to the presenting problem are either stated in the history of present illness or were not pertinent or were negative for the symptoms and/or complaints related to the presenting medical problem. EXAM Physical Exam Narrative Exam Narrative: Vital signs reviewed and patient is not hypoxic. Patient is tearful, admitted anxiety. General: The patient appears well and in no apparent distress. Patient is resting comfortably on cart. Not toxic, lethargic, or listless. Skin: Warm, dry, no pallor noted. There is no rash noted. Head: Normocephalic, atraumatic, patient has no tenderness to palpation to bilateral frontal and maxillary sinus. No midline or paracervical tenderness to palpation. Full range of motion of cervical spine no difficulty. Eye: Normal conjunctiva, no drainage, EOMI. PERRL. Ears, Nose, Mouth, and Throat: oral mucosa is moist. Nares patent. Mouth without vesicles. Ear canals patent. Tm's without Erythema Cardiovascular: Regular Rate and Rhythm, no murmurs, gallops, or rubs Respiratory: Patient is in no distress, no accessory muscle use, lungs are clear to auscultation, no wheezing, rales or rhonchi Back: Patient has chronic tenderness to palpation to bilateral paralumbar soft tissue along with midline. No new step-offs. Patient states that she has no new acute pain to the lumbar spine. No rash. No signs of saddle seizure or cauda equina. Patient has limited flexion extension and sidebending and rotation secondary to chronic pain non-tender, no CVA tenderness bilaterally to percussion. NO CTLS midline or paracervicl tenderness to palpation besides what is documented above. Positive straight leg raising test bilateral. No acute changes to bilateral lower patella or Achilles reflexes. GI: Soft, no tenderness to palpation, no masses appreciated. No rebound, guarding, or rigidity noted. No pulsatile palpable mass. Musculoskeletal: The patient has full range of motion of all extremities and joints with no difficulty. Patient has no motor, no sensory deficits. Neurological: A&O x4, normal speech, no focal neurological deficits. Psychiatric: Cooperative Const Vital Signs: 03/11/23 14:29 03/11/23 14:40 Temperature 97 F L Temperature Source Temporal Pulse Rate 115 H Respiratory Rate 18 Respiratory Effort Normal Respiratory Pattern Normal Blood Pressure 154/102 H Blood Pressure Mean 119 Pulse Ox 98 Oxygen Delivery Method Room Air [facility] Treatment and Re-Evaluation Comments:: I spoke to patient's nurse practitioner, Faisal. She was not aware that patient was sent to the ER. She believes that patient was sent to the ER from the triage nurse secondary to elevated blood pressure. However, patient's blood pressure is admittedly elevated per patient history secondary to pain, anxiety, stress, and her chronic pain. Patient was initially offered IM Toradol, Norflex, oral [place]. Patient states she cannot take oral medication because it causes nausea. Patient only wanted the Toradol initially, she also wanted the Zofran. Patient was asking for IM injection of morphine that she had last ER visit. I told her we would talk to her nurse practitioner before we give any additional narcotics. Patient is aware that we do not treat acute on chronic pain with narcotics from the ER. I did speak to patient's nurse practitioner at 1530. She agrees with not giving patient narcotics. Patient was educated to coming to the ER and getting 1 dose of narcotics is not helping her long-term. Faisal stated the patient was to follow-up with Dr. Fuchs and Dr. Garcia in pain management for additional follow-up and treatment of her chronic pain. Patient is very focused and fixated on needing back surgery but they will not do back surgery on her without quitting smoking for 6 weeks. Patient is very upset by this. Patient is also recently seen orthopedic surgeon to see if they would do any surgery on her knee that is causing some of her lower back pain. Patient is thankful for help today, will call nurse practitioner Faisal for follow-up in the office. No prescriptions needed at this time Discharge Plan Triage Chief Complaint: General Illness ED Provider: Orlando Escalera Dx/Rx/DC Orders Clinical Impression: Chronic back pain, Chronic bilateral low back pain with bilateral sciatica, Hypertension, Situational anxiety Instructions: Anxiety Disorders Tx, Back Basics: A Healthy Spine, ED Back Exercises, Lumbar, ED Hypertension, Established Prescriptions: No Action lamotrigine 200 mg tablet 200 mg PO BID Label Comments: take 1 tablet by mouth twice a day lisinopril 30 mg tablet 30 mg PO DAILY Qty: 90 3RF paroxetine HCl 30 mg tablet 30 mg PO DAILY Label Comments: take 2 tablets by mouth once daily alprazolam 2 MG tablet 2 mg PO TID PRN (Reason: Anxiety) (DME) Altera Nebulizer System [facility] Rx Instructions .ROUTE .MEDSUPPLY Qty: 1 3RF Rx Instructions: nebulizer and supplies fluticasone propionate 50 mcg/actuation spray,suspension See Rx Instructions .Route PRN PRN (Reason: Nasal Congestion) Qty: 15.8 3RF Rx Instructions: USE 2 SPRAYS IN EACH NOSTRIL ONCE DAILY (DME) blood-glucose meter [OneTouch Verio Flex meter] [facility] Rx Instructions .ROUTE .MEDSUPPLY Qty: 1 0RF Rx Instructions: As directed - Check blood sugar daily (DME) Blood Glucose Test Strip See Rx Instructions .ROUTE .MEDSUPPLY Qty: 50 3RF Rx Instructions: use to monitor blood sugar daily for type 2 DM (DME) blood-glucose meter [facility] Rx Instructions .ROUTE .MEDSUPPLY Qty: 1 0RF Rx Instructions: use to monitor blood sugar daily for type 2 DM (DME) lancets 32 gauge [facility] [place] See Rx Instructions .ROUTE .MEDSUPPLY Qty: 100 3RF Rx Instructions: use to check blood sugar for type 2 DM ipratropium-albuterol 0.5 mg-3 mg(2.5 mg base)/3 mL solution for nebulization 3 ml INHALATION Q8H PRN (Reason: shortness of breath or wheezing) Qty: 90 3RF Jardiance 25 mg tablet 25 mg PO QAM Qty: 90 3RF (DME) OneTouch Verio test strips Strip See Rx Instructions .ROUTE .MEDSUPPLY Qty: 100 3RF Rx Instructions: Check blood sugar daily ondansetron 4 mg tablet,disintegrating 4 mg PO Q8H PRN (Reason: nausea and vomiting) Qty: 30 3RF omeprazole 40 mg capsule,delayed release(DR/EC) 40 mg PO DAILY Qty: 90 3RF budesonide-formoterol [Symbicort] 160-4.5 mcg/actuation HFA aerosol inhaler 2 puff INHALATION BID Qty: 10.2 3RF rosuvastatin 10 mg tablet See Rx Instructions .ROUTE .COMPLEX Qty: 90 0RF Dose Instruction: take 1 tablet by mouth once daily Rx Instructions: take 1 tablet by mouth once daily albuterol sulfate [Ventolin HFA] 90 mcg/actuation HFA aerosol inhaler 2 puff INHALATION Q6H PRN (Reason: shortness of breath or wheezing) Qty: 8 3RF Primary Care Provider: Coral Monae NP Referrals: Coral Monae NP, [employer] [Primary Care Provider] - Activity Restrictions/Additional Instructions: No changes to your medication at this time. Call your nurse practitioner Letha for follow-up in the office. Continue to use ice and stretching. The emergency room is available for you anytime, but we cannot continue using narcotics treating chronic pain from the emergency room. Need to follow-up with her pain management physician as discussed. Follow-up with your nurse practitioner as well and how to manage chronic pain. Continue medication as discussed. If you need any other additional hypertensive medication or adjustments, your nurse practitioner will help you with this as well. Disposition Disposition: Home, Self Care
[2023-03-11] MEDS: Ondansetron ODT 4 MG Tablet PO (14:55)
[2023-03-11] MEDS: Ketorolac 30 MG/ML Syringe IM (14:55)
[2023-03-11 15:06] LABS: Bedside Glucose 171 mg/dL (74-106)
--- NOTE | 2023-03-11 17:07 | EDS_ITS ---
HPI History of Present Illness Chief Complaint: General Illness Narrative Narrative: Patient is a 57-year-old female who is presenting to the ER with multiple complaints. Patient is here for generalized anxiety, panic attacks, acute on chronic pain. Patient is in pain management. Patient is due to have lower back surgery, but the surgeon will not perform surgery until she quit smoking for 6 weeks. Patient is here with acute on chronic pain. Patient was just here several days ago, patient is under multiple times for acute on chronic pain. Patient has no new headache, chest pain or shortness of breath. No new abdominal pain, nausea or vomiting. Patient has acute on chronic lower back pain. No urinary or stool incontinence. Patient is here for pain relief today. Patient has received IM injections of narcotics in the past for her pain. Patient was brought to the ER by family member. No new injury, no new fall, no new acute neurological, or motor or sensory deficits today. Patient is tearful because of her chronic pain. No acute complaints today. [facility] Medical History Abnormal EKG Acute exacerbation of chronic low back pain Anxiety and depression Asthma Back pain Carpal tunnel syndrome Chronic back pain Chronic headaches Chronic radicular lumbar pain Concussion Cough Easy bruising Encounter for screening for malignant neoplasm of lung in current smoker with 30 pack year history or greater Essential hypertension Fall Flu vaccine need GERD (gastroesophageal reflux disease) Grief Head injury Hx of emotional problems Hyperlipidemia IBS (irritable bowel syndrome) Muscle spasm Neuropathy Panic attack Post concussion syndrome Seasonal allergies Type 2 diabetes mellitus Urinary incontinence Vision problems Home Medications alprazolam 2 mg tablet 2 mg PO TID PRN Anxiety 03/24/19 [History Last Taken 08/22/20 04:30 2 MG] nebulizers (Altera Nebulizer System) #1 ea 09/06/20 [Rx Last Taken Unknown] fluticasone propionate 50 mcg/actuation nasal spray,suspension See Rx Instructions .Route PRN PRN Nasal Congestion #15.8 mL 11/16/21 [Rx Last Taken Unknown] blood-glucose meter (GridXuch Verio Flex Meter) #1 ea 11/27/21 [Rx Last Taken Unknown] blood sugar diagnostic (Blood Glucose Test strips) #50 ea 11/28/21 [Rx Last Taken Unknown] blood-glucose meter #1 ea 11/28/21 [Rx Last Taken Unknown] lancets 32 gauge #100 ea 11/28/21 [Rx Last Taken Unknown] lamotrigine 200 mg tablet 200 mg PO BID 03/12/22 [History Last Taken Unknown] paroxetine HCl 30 mg tablet 30 mg PO DAILY 05/08/22 [History Last Taken Unknown] lisinopril 30 mg tablet 30 mg PO DAILY #90 tabs 07/04/22 [Rx Last Taken Unknown] ipratropium 0.5 mg-albuterol 3 mg (2.5 mg base)/3 mL nebulization soln 3 ml inha lation Q8H PRN shortness of breath or wheezing #90 mL 07/22/22 [Rx Last Taken Unknown] empagliflozin 25 mg tablet (Jardiance) 25 mg PO QAM #90 tabs 08/23/22 [Rx Last Taken Unknown] blood sugar diagnostic (GridXuch Verio test strips) #100 ea 08/28/22 [Rx Last Taken Unknown] ondansetron 4 mg disintegrating tablet 4 mg PO Q8H PRN nausea and vomiting #30 tabs 09/27/22 [Rx Last Taken Unknown] omeprazole 40 mg capsule,delayed release 40 mg PO DAILY #90 caps 10/28/22 [Rx Last Taken Unknown] budesonide-formoterol HFA 160 mcg-4.5 mcg/actuation aerosol inhaler (Symbicort) 2 puff inhalation BID #10.2 grams 11/04/22 [Rx Last Taken Unknown] rosuvastatin 10 mg tablet See Rx Instructions .Route .COMPLEX #90 TABLETS 11/05/22 [Rx Last Taken Unknown] Ventolin HFA 90 mcg/actuation aerosol inhaler (albuterol sulfate) 2 puff inhalation Q6H PRN shortness of breath or wheezing #8 grams 12/09/22 [Rx Last Taken Unknown] Allergy/AdvReac Type Severity Reaction Status Date / Time red dye Allergy Severe swelling Verified 03/11/23 14:30 carbidopa Allergy Unknown Verified 03/11/23 14:30 gabapentin Allergy Unknown Verified 03/11/23 14:30 latex Allergy Rash Verified 03/11/23 14:30 quetiapine fumarate Allergy Other Verified 03/11/23 14:30 [From Seroquel] topiramate [From Topamax] Allergy Hives Verified 03/11/23 14:30 tramadol HCl [From Ultram] Allergy Other Verified 03/11/23 14:30 amitriptyline AdvReac Vomiting Verified 03/11/23 14:30 aspirin AdvReac Upset Verified 03/11/23 14:30 Stomach codeine AdvReac Vomiting Verified 03/11/23 14:30 cyclobenzaprine HCl AdvReac Upset Verified 03/11/23 14:30 [From Flexeril] Stomach etodolac [Etodolac] AdvReac Vomiting Verified 03/11/23 14:30 hydrocodone bitartrate AdvReac Vomiting Verified 03/11/23 14:30 [From Vicodin] metformin AdvReac Diarrhea Verified 03/11/23 14:30 metoclopramide [From Reglan] AdvReac Other Verified 03/11/23 14:30 naproxen [From Naprosyn] AdvReac Upset Verified 03/11/23 14:30 Stomach propoxyphene napsylate AdvReac Vomiting Verified 03/11/23 14:30 [From Darvocet-N 100] Family History Mother Malignant hyperthermia due to anesthesia Angina pectoris Arthritis Bowel disease Myocardial infarction Heart disease Hypertension High cholesterol CVA (cerebral vascular accident) Father Asthma Arthritis Myocardial infarction Heart disease High cholesterol Hypertension CVA (cerebral vascular accident) Leukemia Diabetes Grandmother Lung cancer Grandfather Diabetes Grandmother Diabetes Surgical History History of History of cholecystectomy History of orthopedic surgery History of partial hysterectomy History of total hysterectomy S/P knee surgery Social History household members: none Smoking Status: Current every day smoker tobacco type: cigarettes Tobacco: How many years used: 46 Electronic Cigarette Use: not used how long ago did patient quit smokin+ pack year smoking history (1.5-2 ppd x 32 years, 3 ppd x 14 years). second hand exposure: Yes quit status: considering quitting counseling given: provider counseling alcohol intake: never substance use type: does not use what type of physical activity do you participate in: walking and bicycling ROS ROS ED ROS Narrative REVIEW OF SYSTEMS: Unless otherwise stated in this report the patient's positive and negative responses for review of systems for constitutional, eyes, ENT, cardiovascular, respiratory, gastrointestinal, neurological, , musculoskeletal, and integument systems and related systems to the presenting problem are either stated in the history of present illness or were not pertinent or were negative for the symptoms and/or complaints related to the presenting medical problem. EXAM Physical Exam Narrative Exam Narrative: Vital signs reviewed and patient is not hypoxic. General: The patient appears well and in mild apparent distress secondary to stress, anxiety, and chronic pain. Patient is resting uncomfortably on cart. Not toxic, lethargic, or listless. Skin: Warm, dry, no pallor noted. There is no rash noted. Head: Normocephalic, atraumatic Eye: Normal conjunctiva, no drainage, EOMI. PERRL. Ears, Nose, Mouth, and Throat: oral mucosa is moist. Nares patent. Mouth without vesicles. Cardiovascular: Regular Rate and Rhythm, no murmurs, gallops, or rubs Respiratory: Patient is in no distress, no accessory muscle use, lungs are clear to auscultation, no wheezing, rales or rhonchi Back: Moderate tenderness to palpation to bilateral paralumbar area, right greater than left. No acute signs of saddle anesthesia or cauda equina. Negative straight leg raising test bilateral. Normal deep tendon reflexes to patella and Achilles bilateral. Non-tender, no CVA tenderness bilaterally to percussion. NO CTLS midline or paracervicl tenderness to palpation. GI: Soft, no tenderness to palpation, no masses appreciated. No rebound, guarding, or rigidity noted. Musculoskeletal: The patient has full range of motion of all extremities and joints with no difficulty. Patient has no motor, no sensory deficits. Neurological: A&O x4, normal speech, no focal neurological deficits. Psychiatric: Cooperative Const Vital Signs: 03/11/23 14:29 03/11/23 14:40 Temperature 97 F L Temperature Source Temporal Pulse Rate 115 H Respiratory Rate 18 Respiratory Effort Normal Respiratory Pattern Normal Blood Pressure 154/102 H Blood Pressure Mean 119 Pulse Ox 98 Oxygen Delivery Method Room Air MDM MDM MDM Narrative Medical decision making narrative: Patient asked several times for injection of pain medication. Patient is in pain management. Patient was told that she cannot continue coming to the ER just for injection of narcotics. Education on treating chronic pain was discussed with patient at bedside and on discharge paperwork. Patient was offered a shot of Norflex. Patient was told is no indication for narcotics today. Patient was told to follow-up with her PCP and call pain management, do not wait for her appointment in the next several weeks. Patient was educated using ice and stretching. Patient will follow-up with PCP as needed. Patient was told that every time she comes to the ER she cannot expect injection or narcotics. Patient has received injection of Dilaudid and morphine in the past. Lab Data Labs: Laboratory Results - last 24 hr 03/11/23 14:47 POC Glucose 171 H Discharge Plan Triage Chief Complaint: General Illness ED Provider: Orlando Escalera Dx/Rx/DC Orders Clinical Impression: Chronic back pain, Chronic bilateral low back pain with bilateral sciatica, Hypertension, Situational anxiety Instructions: Anxiety Disorders Tx, Back Basics: A Healthy Spine, ED Back Exercises, Lumbar, ED Hypertension, Established Prescriptions: No Action lamotrigine 200 mg tablet 200 mg PO BID Label Comments: take 1 tablet by mouth twice a day lisinopril 30 mg tablet 30 mg PO DAILY Qty: 90 3RF paroxetine HCl 30 mg tablet 30 mg PO DAILY Label Comments: take 2 tablets by mouth once daily alprazolam 2 MG tablet 2 mg PO TID PRN (Reason: Anxiety) (DME) Altera Nebulizer System [facility] [place] See Rx Instructions .ROUTE .MEDSUPPLY Qty: 1 3RF Rx Instructions: nebulizer and supplies fluticasone propionate 50 mcg/actuation spray,suspension See Rx Instructions .Route PRN PRN (Reason: Nasal Congestion) Qty: 15.8 3RF Rx Instructions: USE 2 SPRAYS IN EACH NOSTRIL ONCE DAILY (DME) blood-glucose meter [OneTouch Verio Flex meter] [facility] [place] See Rx Instructions .ROUTE .MEDSUPPLY Qty: 1 0RF Rx Instructions: As directed - Check blood sugar daily (DME) Blood Glucose Test Strip See Rx Instructions .ROUTE .MEDSUPPLY Qty: 50 3RF Rx Instructions: use to monitor blood sugar daily for type 2 DM (DME) blood-glucose meter [facility] [place] See Rx Instructions .ROUTE .MEDSUPPLY Qty: 1 0RF Rx Instructions: use to monitor blood sugar daily for type 2 DM (DME) lancets 32 gauge [facility] [place] See Rx Instructions .ROUTE .MEDSUPPLY Qty: 100 3RF Rx Instructions: use to check blood sugar for type 2 DM ipratropium-albuterol 0.5 mg-3 mg(2.5 mg base)/3 mL solution for nebulization 3 ml INHALATION Q8H PRN (Reason: shortness of breath or wheezing) Qty: 90 3RF Jardiance 25 mg tablet 25 mg PO QAM Qty: 90 3RF (DME) OneTouch Verio test strips Strip See Rx Instructions .ROUTE .MEDSUPPLY Qty: 100 3RF Rx Instructions: Check blood sugar daily ondansetron 4 mg tablet,disintegrating 4 mg PO Q8H PRN (Reason: nausea and vomiting) Qty: 30 3RF omeprazole 40 mg capsule,delayed release(DR/EC) 40 mg PO DAILY Qty: 90 3RF budesonide-formoterol [Symbicort] 160-4.5 mcg/actuation HFA aerosol inhaler 2 puff INHALATION BID Qty: 10.2 3RF rosuvastatin 10 mg tablet See Rx Instructions .ROUTE .COMPLEX Qty: 90 0RF Dose Instruction: take 1 tablet by mouth once daily Rx Instructions: take 1 tablet by mouth once daily albuterol sulfate [Ventolin HFA] 90 mcg/actuation HFA aerosol inhaler 2 puff INHALATION Q6H PRN (Reason: shortness of breath or wheezing) Qty: 8 3RF Primary Care Provider: Coral Monae NP Referrals: Coral Monae NP, CONFERENCE SPECIALIST-[facility] [Primary Care Provider] - Activity Restrictions/Additional Instructions: No changes to your medication at this time. Call your nurse practitioner Letha for follow-up in the office. Continue to use ice and stretching. The emergency room is available for you anytime, but we cannot continue using narcotics treating chronic pain from the emergency room. Need to follow-up with her pain management physician as discussed. Follow-up with your nurse practitioner as well and how to manage chronic pain. Continue medication as discussed. If you need any other additional hypertensive medication or adjustments, your nurse practitioner will help you with this as well. Disposition Disposition: Home, Self Care Discharge Date/Time: 03/11/23 15:53
== END 2023-03-11 15:53 | disposition home or self-care (01) ==
PROVIDERS: Emergency Provider Emergency Medicine; PCP Internal Medicine; Visit Provider Emergency Medicine
DX: G89.29 Other chronic pain (principal); E11.40 Type 2 diabetes mellitus with diabetic neuropathy, unspecified; M54.42 Lumbago with sciatica, left side; I10 Essential (primary) hypertension; F41.9 Anxiety disorder, unspecified; E78.5 Hyperlipidemia, unspecified; Z87.891 Personal history of nicotine dependence; M54.41 Lumbago with sciatica, right side
CPT/HCPCS: 82962; 96372; 99283

== ENCOUNTER 2023-05-15 13:45 | Emergency (ER) | payer MEDICAID, SELFPAY ==
[2023-05-15 13:46] VITALS: BP 106/80; PULSE 113; RESP 18; TEMP 36.6; O2SAT 97
[2023-05-15 14:09] VITALS: BMI 26.4
[2023-05-15] MEDS: Ketorolac 30 MG/ML Syringe IM (14:53)
[2023-05-15] MEDS: morphine 10 MG/ML Syringe 6 MG IM (14:54)
[2023-05-15] MEDS: Ondansetron ODT 4 MG Tablet PO (14:54)
--- NOTE | 2023-05-15 15:33 | EDS_ITS ---
HPI <ANDREA Boston - Last Filed: 05/15/23 15:38> History of Present Illness Chief Complaint: Back Narrative Narrative: Patient is a 57-year-old female with history of hypertension, lipidemia, diabetes, chronic back pain who presents to the emergency department for acute on chronic back pain. Patient states she is no longer in pain management, she is currently seeing a back surgeon at the [facility]. She denies any weakness to her lower extremities, [place] any bowel or bladder incontinence. Denies any fever or chills. Patient states that this is acute on chronic pain which she thinks she exacerbated her back from gardening and doing the lawn. PFSH <ANDREA Boston - Last Filed: 05/15/23 15:38> [facility] Medical History Abnormal EKG Acute exacerbation of chronic low back pain Anxiety and depression Asthma Back pain Carpal tunnel syndrome Chronic back pain Chronic headaches Chronic radicular lumbar pain Concussion Cough Easy bruising Encounter for screening for malignant neoplasm of lung in current smoker with 30 pack year history or greater Essential hypertension Fall Flu vaccine need GERD (gastroesophageal reflux disease) Grief Head injury Hx of emotional problems Hyperlipidemia IBS (irritable bowel syndrome) Muscle spasm Neuropathy Panic attack Post concussion syndrome Seasonal allergies Type 2 diabetes mellitus Urinary incontinence Vision problems Home Medications alprazolam 2 mg tablet 2 mg PO TID PRN Anxiety 03/24/19 [History Last Taken 08/22/20 04:30 2 MG] nebulizers (Altera Nebulizer System) #1 ea 09/06/20 [Rx Last Taken Unknown] fluticasone propionate 50 mcg/actuation nasal spray,suspension See Rx Instruct ions .Route PRN PRN Nasal Congestion #15.8 mL 11/16/21 [Rx Last Taken Unknown] blood-glucose meter (Ailvxing netuch Verio Flex Meter) #1 ea 11/27/21 [Rx Last Taken Unknown] blood sugar diagnostic (Blood Glucose Test strips) #50 ea 11/28/21 [Rx Last Taken Unknown] blood-glucose meter #1 ea 11/28/21 [Rx Last Taken Unknown] lancets 32 gauge #100 ea 11/28/21 [Rx Last Taken Unknown] lamotrigine 200 mg tablet 200 mg PO BID 04/12/22 [History Last Taken Unknown] paroxetine HCl 30 mg tablet 30 mg PO DAILY 05/08/22 [History Last Taken Unknown] lisinopril 30 mg tablet 30 mg PO DAILY #90 tabs 07/04/22 [Rx Last Taken Unknown] ipratropium 0.5 mg-albuterol 3 mg (2.5 mg base)/3 mL nebulization soln 3 ml inhalation Q8H PRN shortness of breath or wheezing #90 mL 07/22/22 [Rx Last Taken Unknown] empagliflozin 25 mg tablet (Jardiance) 25 mg PO QAM #90 tabs 08/23/22 [Rx Last Taken Unknown] blood sugar diagnostic (Ailvxing netuch Verio test strips) #100 ea 08/28/22 [Rx Last Taken Unknown] ondansetron 4 mg disintegrating tablet 4 mg PO Q8H PRN nausea and vomiting #30 tabs 09/27/22 [Rx Last Taken Unknown] omeprazole 40 mg capsule,delayed release 40 mg PO DAILY #90 caps 10/28/22 [Rx Last Taken Unknown] budesonide-formoterol HFA 160 mcg-4.5 mcg/actuation aerosol inhaler (Symbicort) 2 puff inhalation BID #10.2 grams 11/04/22 [Rx Last Taken Unknown] rosuvastatin 10 mg tablet See Rx Instructions .Route .COMPLEX #90 TABLETS 11/05/22 [Rx Last Taken Unknown] Ventolin HFA 90 mcg/actuation aerosol inhaler (albuterol sulfate) 2 puff inhalation Q6H PRN shortness of breath or wheezing #8 grams 12/09/22 [Rx Last Taken Unknown] Allergy/AdvReac Type Severity Reaction Status Date / Time red dye Allergy Severe swelling Verified 03/11/23 14:30 carbidopa Allergy Unknown Verified 03/11/23 14:30 gabapentin Allergy Unknown Verified 03/11/23 14:30 latex Allergy Rash Verified 03/11/23 14:30 quetiapine fumarate Allergy Other Verified 03/11/23 14:30 [From Seroquel] topiramate [From Topamax] Allergy Hives Verified 03/11/23 14:30 tramadol HCl [From Ultram] Allergy Other Verified 03/11/23 14:30 amitriptyline AdvReac Vomiting Verified 03/11/23 14:30 aspirin AdvReac Upset Verified 03/11/23 14:30 Stomach codeine AdvReac Vomiting Verified 03/11/23 14:30 cyclobenzaprine HCl AdvReac Upset Verified 03/11/23 14:30 [From Flexeril] Stomach etodolac [Etodolac] AdvReac Vomiting Verified 03/11/23 14:30 hydrocodone bitartrate AdvReac Vomiting Verified 03/11/23 14:30 [From Vicodin] metformin AdvReac Diarrhea Verified 03/11/23 14:30 metoclopramide [From Reglan] AdvReac Other Verified 03/11/23 14:30 naproxen [From Naprosyn] AdvReac Upset Verified 03/11/23 14:30 Stomach propoxyphene napsylate AdvReac Vomiting Verified 03/11/23 14:30 [From Darvocet-N 100] Family History Mother Malignant hyperthermia due to anesthesia Angina pectoris Arthritis Bowel disease Myocardial infarction Heart disease Hypertension High cholesterol CVA (cerebral vascular accident) Father Asthma Arthritis Myocardial infarction Heart disease High cholesterol Hypertension CVA (cerebral vascular accident) Leukemia Diabetes Grandmother Lung cancer Grandfather Diabetes Grandmother Diabetes Surgical History History of History of cholecystectomy History of orthopedic surgery History of partial hysterectomy History of total hysterectomy S/P knee surgery Social History household members: none Smoking Status: Current every day smoker tobacco type: cigarettes Tobacco: How many years used: 46 Electronic Cigarette Use: not used how long ago did patient quit smokin+ pack year smoking history (1.5-2 ppd x 32 years, 3 ppd x 14 years). second hand exposure: Yes quit status: considering quitting counseling given: provider counseling alcohol intake: never substance use type: does not use what type of physical activity do you participate in: walking and bicycling ROS <ANDREA Boston - Last Filed: 05/15/23 15:38> ROS ED ROS Narrative Constitutional: Negative for fever, chills, weight loss, weakness Eyes: Negative for vision loss, vision change, double vision ENT: Negative for any sore throat, ear pain, congestion Cardiovascular: Negative for any chest pain, tightness, palpitations Respiratory: Negative for any cough, sputum production, hemoptysis, dyspnea, dyspnea on exertion, orthopnea Gastrointestinal: Negative for any abdominal pain, nausea, vomiting, diarrhea, constipation, blood in stool, blood in vomit : Negative for any urinary frequency, dysuria, retention, blood in urine Muscle skeletal: Negative for any muscle joint pain, stiffness, myalgias, arthralgias, neck pain. Positive for lower back pain Neurological: Negative for any headache, syncope, numbness or tingling, dizziness Skin: Negative for any rashes, lumps, itching, abrasions, lacerations Psychiatric: Negative for any depression, anxiety, stress, suicidal ideation, homicidal ideation Hematologic: Negative for any easy bruising, excessive bruising, easy bleeding Allergies: Negative for any eczema, hives, rash EXAM <ANDREA Boston - Last Filed: 05/15/23 15:38> Physical Exam Narrative Exam Narrative: Vital signs reviewed. HEET: Head normocephalic atraumatic, TMs clear bilaterally. Posterior pharynx is clear, moist mucous membranes. Nares clear bilaterally. Neck: Supple with no lymphadenopathy or tenderness. No signs of meningismus, negative jolt sign. Cardiac: Regular rate and rhythm no murmurs gallops or rubs, equal peripheral pulses bilaterally. Respiratory: Lungs clear to auscultation bilaterally. No chest tenderness. Abdomen: Soft, nontender, nondistended. No abdominal bruit or pulsatile masses. No hepatosplenomegaly Extremities: No peripheral edema, no signs of gross trauma or deformity. Active full range of motion of all extremities. Patient ambulatory with a steady gait. Strength 5 out of 5. Neuro: Cranial nerves II through XII intact, no focal neurological deficits. Skin: Clean dry and intact with no rash, purpura, petechiae, vesicles or pustules. Backs/flank: No CVA tenderness, no midline spinal tenderness, no deformity. Psych: Normal mood and affect. No SI, HI or acute psychosis. Const Vital Signs: 05/15/23 13:46 Temperature 97.8 F Temperature Source Temporal Pulse Rate 113 H Respiratory Rate 18 Blood Pressure 106/80 Blood Pressure Mean 88 Pulse Ox 97 Oxygen Delivery Method Room Air Positive well nourished and well developed General Appearance ED: well developed <Dr. Jeremiah Ga MD - Last Filed: 05/15/23 23:07> Physical Exam Const Vital Signs: 05/15/23 13:46 Temperature 97.8 F Temperature Source Temporal Pulse Rate 113 H Respiratory Rate 18 Blood Pressure 106/80 Blood Pressure Mean 88 Pulse Ox 97 Oxygen Delivery Method Room Air MDM <ANDREA Boston - Last Filed: 05/15/23 15:38> MDM Treatment and Re-Evaluation :: Patient appears generally well, patient appears nontoxic, vital signs are stable. Patient presents to the emergency department with acute on chronic back pain. Patient's physical examination yielded no red flag signs, no signs or symptoms of cauda equina, spinal abscess. She was given 6 mg of IM morphine here, Toradol, as well as Zofran. On reevaluation, the patient felt much better. She would like to be discharged home. She will be given no discharge home going medications secondary to this being a chronic problem. She will follow-up closely with her spine surgeon at [facility]. She was given return precautions. Patient stable for discharge <Dr. Jeremiah Ga MD - Last Filed: 05/15/23 23:07> MDM Treatment and Re-Evaluation Comments:: Seen and evaluated independently and in conjunction with nurse practitioner. Agree with notes above unless documented otherwise. Increase in her chronic low back pain nonlateralizing, radiates into her hips and thighs but not below the knee or to the feet, as a result of increase activities Exam: Bilateral paraspinal lumbosacral tenderness, negative sitting straight leg raises, no signs of neurovascular compromise. Patient without signs or symptoms of cauda equina syndrome, supportive care advised she was given injections of medications here and felt better and will be discharged with follow-up. Discharge Plan Triage Chief Complaint: Back ED Midlevel Provider: Librado Almaraz ED Provider: Jeremiah Ga Dx/Rx/DC Orders Clinical Impression: Acute exacerbation of chronic low back pain Instructions: ED Chronic Pain Prescriptions: No Action lamotrigine 200 mg tablet 200 mg PO BID Label Comments: take 1 tablet by mouth twice a day lisinopril 30 mg tablet 30 mg PO DAILY Qty: 90 3RF paroxetine HCl 30 mg tablet 30 mg PO DAILY Label Comments: take 2 tablets by mouth once daily alprazolam 2 MG tablet 2 mg PO TID PRN (Reason: Anxiety) (DME) Altera Nebulizer System [facility] See Rx Instructions .ROUTE .MEDSUPPLY Qty: 1 3RF Rx Instructions: nebulizer and supplies fluticasone propionate 50 mcg/actuation spray,suspension See Rx Instructions .Route PRN PRN (Reason: Nasal Congestion) Qty: 15.8 3RF Rx Instructions: USE 2 SPRAYS IN EACH NOSTRIL ONCE DAILY (DME) blood-glucose meter [OneTouch Verio Flex meter] [facility] See Rx Instructions .ROUTE .MEDSUPPLY Qty: 1 0RF Rx Instructions: As directed - Check blood sugar daily (DME) Blood Glucose Test Strip See Rx Instructions .ROUTE .MEDSUPPLY Qty: 50 3RF Rx Instructions: use to monitor blood sugar daily for type 2 DM (DME) blood-glucose meter [facility] See Rx Instructions .ROUTE .MEDSUPPLY Qty: 1 0RF Rx Instructions: use to monitor blood sugar daily for type 2 DM (DME) lancets 32 gauge [facility] See Rx Instructions .ROUTE .MEDSUPPLY Qty: 100 3RF Rx Instructions: use to check blood sugar for type 2 DM ipratropium-albuterol 0.5 mg-3 mg(2.5 mg base)/3 mL solution for nebulization 3 ml INHALATION Q8H PRN (Reason: shortness of breath or wheezing) Qty: 90 3RF Jardiance 25 mg tablet 25 mg PO QAM Qty: 90 3RF (DME) OneTouch Verio test strips Strip See Rx Instructions .ROUTE .MEDSUPPLY Qty: 100 3RF Rx Instructions: Check blood sugar daily ondansetron 4 mg tablet,disintegrating 4 mg PO Q8H PRN (Reason: nausea and vomiting) Qty: 30 3RF omeprazole 40 mg capsule,delayed release(DR/EC) 40 mg PO DAILY Qty: 90 3RF budesonide-formoterol [Symbicort] 160-4.5 mcg/actuation HFA aerosol inhaler 2 puff INHALATION BID Qty: 10.2 3RF rosuvastatin 10 mg tablet See Rx Instructions .ROUTE .COMPLEX Qty: 90 0RF Dose Instruction: take 1 tablet by mouth once daily Rx Instructions: take 1 tablet by mouth once daily albuterol sulfate [Ventolin HFA] 90 mcg/actuation HFA aerosol inhaler 2 puff INHALATION Q6H PRN (Reason: shortness of breath or wheezing) Qty: 8 3RF Primary Care Provider: Coral Monae NP Referrals: Coral Monae NP, [facility] [Primary Care Provider] - Activity Restrictions/Additional Instructions: Please follow-up outpatient Disposition Disposition: Home, Self Care Discharge Date/Time: 05/15/23 15:45
== END 2023-05-15 15:45 | disposition home or self-care (01) ==
PROVIDERS: Emergency Provider Emergency Medicine; PCP Internal Medicine; Visit Provider Emergency Medicine
DX: M54.50 Low back pain, unspecified (principal); E11.40 Type 2 diabetes mellitus with diabetic neuropathy, unspecified; G89.29 Other chronic pain; E78.5 Hyperlipidemia, unspecified; I10 Essential (primary) hypertension; F17.210 Nicotine dependence, cigarettes, uncomplicated
CPT/HCPCS: 96372; 99282

== ENCOUNTER 2023-06-01 12:37 | Emergency (ER) | payer MEDICAID, SELFPAY ==
[2023-06-01 12:38] VITALS: BP 131/90; PULSE 81; RESP 16; TEMP 36.6; O2SAT 99; BMI 29.7
--- NOTE | 2023-06-01 12:56 | ED.VIS.BACK ---
HPI History of Present Illness Chief Complaint: Back Detail of Chief Complaint: Back pain Informant: patient Narrative Narrative: Patient presents with back pain that is flared up over the last 3 days. Patient states she has history of chronic back pain. Patient's been seen by pain management and was getting injections in her back but does cause her blood sugars to elevate and does not want to continue with those. Patient is working with her PCP currently to have a long-term plan going forward as far as pain management. She is currently on tizanidine and lidocaine patches. She wants some pain relief today but does not want any medication for home. She denies any falls or recent injury. She is trying to avoid having back surgery. She does complain of some pain at times radiating into her left hip and into her left buttock. She denies weakness of the extremities. She denies change in bowel or bladder function. [facility] Medical History Abnormal EKG Acute exacerbation of chronic low back pain Anxiety and depression Asthma Back pain Carpal tunnel syndrome Chronic back pain Chronic headaches Chronic radicular lumbar pain Concussion Cough Easy bruising Encounter for screening for malignant neoplasm of lung in current smoker with 30 pack year history or greater Essential hypertension Fall Flu vaccine need GERD (gastroesophageal reflux disease) Grief Head injury Hx of emotional problems Hyperlipidemia IBS (irritable bowel syndrome) Muscle spasm Neuropathy Panic attack Post concussion syndrome Seasonal allergies Type 2 diabetes mellitus Urinary incontinence Vision problems Home Medications alprazolam 2 mg tablet 2 mg PO TID PRN Anxiety 03/24/19 [History Last Taken 08/22/20 04:30 2 MG] nebulizers (Altera Nebulizer System) #1 ea 09/06/20 [Rx Last Taken Unknown] fluticasone propionate 50 mcg/actuation nasal spray,suspension See Rx Instructions .Route PRN PRN Nasal Congestion #15.8 mL 11/16/21 [Rx Last Taken Unknown] blood-glucose meter (Narr8 Verio Flex Meter) #1 ea 11/27/21 [Rx Last Taken Unknown] blood sugar diagnostic (Blood Glucose Test strips) #50 ea 11/28/21 [Rx Last Taken Unknown] blood-glucose meter #1 ea 11/28/21 [Rx Last Taken Unknown] lancets 32 gauge #100 ea 11/28/21 [Rx Last Taken Unknown] lamotrigine 200 mg tablet 200 mg PO BID 03/12/22 [History Last Taken Unknown] paroxetine HCl 30 mg tablet 30 mg PO DAILY 05/08/22 [History Last Taken Unknown] ipratropium 0.5 mg-albuterol 3 mg (2.5 mg base)/3 mL nebulization soln 3 ml inhalation Q8H PRN shortness of breath or wheezing #90 mL 07/22/22 [Rx Last Taken Unknown] blood sugar diagnostic (Cloud[employer] Verio test strips) #100 ea 08/28/22 [Rx Last Taken Unknown] ondansetron 4 mg disintegrating tablet 4 mg PO Q8H PRN nausea and vomiting #30 tabs 09/27/22 [Rx Last Taken Unknown] omeprazole 40 mg capsule,delayed release 40 mg PO DAILY #90 caps 10/28/22 [Rx Last Taken Unknown] budesonide-formoterol HFA 160 mcg-4.5 mcg/actuation aerosol inhaler (Symbicort) 2 puff inhalation BID #10.2 grams 11/04/22 [Rx Last Taken Unknown] rosuvastatin 10 mg tablet See Rx Instructions .Route .COMPLEX #90 TABLETS 11/05/22 [Rx Last Taken Unknown] Ventolin HFA 90 mcg/actuation aerosol inhaler (albuterol sulfate) 2 puff inhalation Q6H PRN shortness of breath or wheezing #8 grams 12/09/22 [Rx Last Taken Unknown] lisinopril 30 mg tablet See Rx Instructions .Route .COMPLEX #60 tabs 07/14/23 [Rx Last Taken Unknown] empagliflozin 25 mg tablet (Jardiance) 25 mg PO QAM #30 tabs 08/25/23 [Rx Last Taken Unknown] Allergy/AdvReac Type Severity Reaction Status Date / Time red dye Allergy Severe swelling Verified 08/29/23 12:38 carbidopa Allergy Unknown Verified 08/29/23 12:38 gabapentin Allergy Unknown Verified 08/29/23 12:38 latex Allergy Rash Verified 08/29/23 12:38 quetiapine fumarate Allergy Other Verified 08/29/23 12:38 [From Seroquel] topiramate [From Topamax] Allergy Hives Verified 08/29/23 12:38 tramadol HCl [From Ultram] Allergy Other Verified 08/29/23 12:38 amitriptyline AdvReac Vomiting Verified 08/29/23 12:38 aspirin AdvReac Upset Verified 08/29/23 12:38 Stomach codeine AdvReac Vomiting Verified 08/29/23 12:38 cyclobenzaprine HCl AdvReac Upset Verified 08/29/23 12:38 [From Flexeril] Stomach etodolac [Etodolac] AdvReac Vomiting Verified 08/29/23 12:38 hydrocodone bitartrate AdvReac Vomiting Verified 08/29/23 12:38 [From Vicodin] metformin AdvReac Diarrhea Verified 08/29/23 12:38 metoclopramide [From Reglan] AdvReac Other Verified 08/29/23 12:38 naproxen [From Naprosyn] AdvReac Upset Verified 08/29/23 12:38 Stomach propoxyphene napsylate AdvReac Vomiting Verified 08/29/23 12:38 [From Darvocet-N 100] Family History Mother Malignant hyperthermia due to anesthesia Angina pectoris Arthritis Bowel disease Myocardial infarction Heart disease Hypertension High cholesterol CVA (cerebral vascular accident) Father Asthma Arthritis Myocardial infarction Heart disease High cholesterol Hypertension CVA (cerebral vascular accident) Leukemia Diabetes Grandmother Lung cancer Grandfather Diabetes Grandmother Diabetes Surgical History History of History of cholecystectomy History of orthopedic surgery History of partial hysterectomy History of total hysterectomy S/P knee surgery Social History household members: none Smoking Status: Current every day smoker tobacco type: cigarettes Tobacco: How many years used: 46 Electronic Cigarette Use: not used how long ago did patient quit smokin+ pack year smoking history (1.5-2 ppd x 32 years, 3 ppd x 14 years). second hand exposure: Yes quit status: considering quitting counseling given: provider counseling alcohol intake: never substance use type: does not use what type of physical activity do you participate in: walking and bicycling ROS ROS ED Review of Systems ROS Unobtainable: other Constitutional Constitutional ED: Reports lethargy; Denies chills, fever(s), sweats or weight loss Eyes Eyes: Denies blurry vision, change in vision or diplopia ENT ENT ED: Denies rhinorrhea or sore throat Cardiovascular Cardiovascular: Denies chest pain, orthopnea or racing heartbeat Respiratory/Chest Respiratory/Chest: Denies cough, dyspnea, dyspnea on exertion, orthopnea or sputum Gastrointestinal Gastrointestinal: Denies abdominal pain, diarrhea, nausea or vomiting Genitourinary Genitourinary ED: Denies dysuria, hematuria or urinary frequency Musculoskeletal Musculoskeletal: Reports back pain; Denies arthralgias, myalgias or neck pain Integumentary Denies abscess, Abrasions or rash Neurologic Neurologic: Denies headache(s) or weakness Psychiatric Psychiatric: Denies anxiety, depression or suicidal thoughts Endocrine Endocrinology: Denies polydipsia, polyphagia or polyuria Hematologic/Lymphatic Hematologic/Lymphatic: Denies easy bleeding, easy bruising or lymphadenopathy Allergic/Immunologic Allergic/Immunologic ED: Denies mouth swelling, tongue swelling or urticaria EXAM Physical Exam Const Vital Signs: 06/01/23 12:38 Temperature 98 F Temperature Source Temporal Pulse Rate 81 Respiratory Rate 16 Blood Pressure 131/90 H Blood Pressure Mean 103 Pulse Ox 99 Oxygen Delivery Method Room Air Positive well nourished and well developed General Appearance ED: well developed and NAD HEENT Reports TM's clear and moist mucous membranes normocephalic and atraumatic; Negative for trauma or tenderness Tympanic Membrane ED: Yes TM's clear Eyes PERRL and EOMs intact bilaterally General Eye ED: Negative for pale conjunctiva or scleral icterus Neck no lymphadenopathy, supple and no JVD General: Negative for tenderness Chest Wall inspection of chest normal and palpation of chest normal Chest: Negative for tenderness Resp normal respiratory effort and clear to auscultation bilaterally Effort and Inspection: Negative for respiratory distress or pain with movement Auscultation: Negative for rhonchi, wheezes or diminished lung sounds Cardio regular rate, regular rhythm, S1 normal heart sound, S2 normal heart sound and no murmurs Peripheral Pulses: pulses 2+ throughout GI normal to inspection, nondistended, normoactive bowel sounds, soft to palpation, non-tender, non-distended and no masses Back/Spine no CVA tenderness Back/Spine Narrative: Patient with some mild diffuse tenderness over the lumbar spine and lumbar paraspinal musculature bilaterally. She has negative straight leg raises. Deep tendon reflexes plus 2 out of 4 bilaterally at the patella and Achilles. Patient has normal L5 extension bilaterally. Patient has normal sensation to light touch. Extremity normal to inspection General Extremety ED: Negative for edema General Extremity: Negative for edema Neuro oriented x3, CN's II-XII intact bilaterally, no sensory deficits noted and gait normal Sensorium / Orientation: awake, alert, oriented to person, oriented to place and oriented to time Motor Exam: strength 5/5 throughout and strength abnormal Psych mental status grossly normal Skin no rashes or lesions noted and no wounds MDM MDM MDM Narrative Medical decision making narrative: Patient will be given a one-time dose of 4 mg of morphine IM as well as Zofran 4 mg IM and Toradol 30 mg IM. Patient advised to follow-up with her primary care physician within next 3 to 5 days. Patient advised on red flag symptoms of cauda equina and to return for these. No red flag symptoms currently. Patient with acute exacerbation of her chronic back pain. Discharge Plan Triage Chief Complaint: Back ED Provider: Murtaza Reynolds Dx/Rx/DC Orders Clinical Impression: Acute exacerbation of chronic low back pain Instructions: ED Back and Neck Pain, General Prescriptions: No Action lamotrigine 200 mg tablet 200 mg PO BID Patient Comments: take 1 tablet by mouth twice a day paroxetine HCl 30 mg tablet 30 mg PO DAILY Patient Comments: take 2 tablets by mouth once daily alprazolam 2 MG tablet 2 mg PO TID PRN (Reason: Anxiety) (DME) Altera Nebulizer System Misc See Rx Instructions .ROUTE .MEDSUPPLY Qty: 1 3RF Rx Instructions: nebulizer and supplies fluticasone propionate 50 mcg/actuation spray,suspension See Rx Instructions .Route PRN PRN (Reason: Nasal Congestion) Qty: 15.8 3RF Rx Instructions: USE 2 SPRAYS IN EACH NOSTRIL ONCE DAILY (DME) blood-glucose meter [OneTouch Verio Flex meter] Mis See Rx Instructions .ROUTE .MEDSUPPLY Qty: 1 0RF Rx Instructions: As directed - Check blood sugar daily (DME) Blood Glucose Test Strip See Rx Instructions .ROUTE .MEDSUPPLY Qty: 50 3RF Rx Instructions: use to monitor blood sugar daily for type 2 DM (DME) blood-glucose meter Mis See Rx Instructions .ROUTE .MEDSUPPLY Qty: 1 0RF Rx Instructions: use to monitor blood sugar daily for type 2 DM (DME) lancets 32 gauge misc See Rx Instructions .ROUTE .MEDSUPPLY Qty: 100 3RF Rx Instructions: use to check blood sugar for type 2 DM ipratropium-albuterol 0.5 mg-3 mg(2.5 mg base)/3 mL solution for nebulization 3 ml INHALATION Q8H PRN (Reason: shortness of breath or wheezing) Qty: 90 3RF (DME) OneTouch Verio test strips Strip See Rx Instructions .ROUTE .MEDSUPPLY Qty: 100 3RF Rx Instructions: Check blood sugar daily ondansetron 4 mg tablet,disintegrating 4 mg PO Q8H PRN (Reason: nausea and vomiting) Qty: 30 3RF omeprazole 40 mg capsule,delayed release(DR/EC) 40 mg PO DAILY Qty: 90 3RF budesonide-formoterol [Symbicort] 160-4.5 mcg/actuation HFA aerosol inhaler 2 puff INHALATION BID Qty: 10.2 3RF rosuvastatin 10 mg tablet See Rx Instructions .ROUTE .COMPLEX Qty: 90 0RF Dose Instruction: take 1 tablet by mouth once daily Rx Instructions: take 1 tablet by mouth once daily albuterol sulfate [Ventolin HFA] 90 mcg/actuation HFA aerosol inhaler 2 puff INHALATION Q6H PRN (Reason: shortness of breath or wheezing) Qty: 8 3RF lisinopril 30 mg tablet See Rx Instructions .ROUTE .COMPLEX Qty: 60 0RF Dose Instruction: take 1 tablet by mouth once daily Rx Instructions: take 1 tablet by mouth once daily Jardiance 25 mg tablet 25 mg PO QAM Qty: 30 0RF Primary Care Provider: Coral Monae NP Referrals: Coral Monae NP, [facility] [employer] [Primary Care Provider] - 3-5 Days Disposition Disposition: Home, Self Care Discharge Date/Time: 06/01/23 13:30
[2023-06-01] MEDS: Ondansetron 4 MG/2 ML Vial IM (13:01)
[2023-06-01] MEDS: Ketorolac 30 MG/ML Syringe IM (13:03)
[2023-06-01] MEDS: Morphine 4 MG/ML Syringe IM (13:04)
== END 2023-06-01 13:30 | disposition home or self-care (01) ==
LOC: ED 13:12
PROVIDERS: Emergency Provider Emergency Medicine; PCP Internal Medicine; Visit Provider Emergency Medicine
DX: M54.50 Low back pain, unspecified (principal); E11.40 Type 2 diabetes mellitus with diabetic neuropathy, unspecified; I10 Essential (primary) hypertension; F17.210 Nicotine dependence, cigarettes, uncomplicated; E78.5 Hyperlipidemia, unspecified; G89.29 Other chronic pain; J45.909 Unspecified asthma, uncomplicated
CPT/HCPCS: 96372; 96374; 99282; J2405

== ENCOUNTER 2023-08-29 12:37 | Emergency (ER) | payer MEDICAID, SELFPAY ==
[2023-08-29 12:38] VITALS: BP 149/89; PULSE 97; RESP 18; TEMP 35.7; O2SAT 97; BMI 27.4
[2023-08-29 13:11] VITALS: O2SAT 95
[2023-08-29] MEDS: Ondansetron ODT 4 MG Tablet 8 MG PO (13:26)
[2023-08-29] MEDS: Ketorolac 30 MG/ML Syringe IM (13:27)
[2023-08-29] MEDS: Morphine 4 MG/ML Syringe IM (13:27)
--- NOTE | 2023-08-29 13:30 | RAD_ITS ---
STUDY: X-RAY - LUMBAR SPINE REASON FOR EXAM: Female, 58 years old. Injury/pain TECHNIQUE: 2 view(s) of the lumbar spine were obtained. COMPARISON: Comparison is made with prior study dated May 01, 2022. FINDINGS: There is an exaggerated lumbar lordosis. There is no substantial scoliosis. Stable grade 1 anterolisthesis of L4 on L5 most likely secondary to facet joint osteoarthritis. Normal vertebral bodies and endplates. Mild degree of disc space narrowing at the L3-L4 and L4-L5 levels. There is atherosclerotic calcification of the abdominal aorta without a demonstrated aneurysm. RAD/Lumbar Spine 2 or 3 Views IMPRESSION: Degenerative changes of the spine, as detailed above. Stable grade 1 anterolisthesis of L4 on L5. Electronically Signed: Clayton Grimm MD at 14:07 EDT ,
--- NOTE | 2023-08-29 14:06 | ED.VIS.FALL ---
HPI HPI - Fall History of Present Illness Chief Complaint: Fall Informant: patient Occured/Mechanism Occurred: Today (Several hours ago) Mechanism/Context: Yes same level fall Narrative Narrative: Patient states she tripped over someone else's boots that were outside of her house, falling onto her buttocks, exacerbating chronic pain she has in her low back on the right side. She denies any radiation down her legs, numbness, bowel or bladder dysfunction, or inability to walk/bear weight. She states her legs are shaky because of the pain. She denies any abdominal pain or other injury. No pain higher in her back or her neck and did not hit her head. [facility] Medical History Abnormal EKG Acute exacerbation of chronic low back pain Anxiety and depression Asthma Back pain Carpal tunnel syndrome Chronic back pain Chronic headaches Chronic radicular lumbar pain Concussion Cough Easy bruising Encounter for screening for malignant neoplasm of lung in current smoker with 30 pack year history or greater Essential hypertension Fall Flu vaccine need GERD (gastroesophageal reflux disease) Grief Head injury Hx of emotional problems Hyperlipidemia IBS (irritable bowel syndrome) Muscle spasm Neuropathy Panic attack Post concussion syndrome Seasonal allergies Type 2 diabetes mellitus Urinary incontinence Vision problems Home Medications alprazolam 2 mg tablet 2 mg PO TID PRN Anxiety 03/24/19 [History Last Taken 08/22/20 04:30 2 MG] nebulizers (Altera Nebulizer System) #1 ea 09/06/20 [Rx Last Taken Unknown] fluticasone propionate 50 mcg/actuation nasal spray,suspension See Rx Instructions .Route PRN PRN Nasal Congestion #15.8 mL 11/16/21 [Rx Last Taken Unknown] blood-glucose meter ([employer] Verio Flex Meter) #1 ea 11/27/21 [Rx Last Taken Unknown] blood sugar diagnostic (Blood Glucose Test strips) #50 ea 11/28/21 [Rx Last Taken Unknown] blood-glucose meter #1 ea 11/28/21 [Rx Last Taken Unknown] lancets 32 gauge #100 ea 11/28/21 [Rx Last Taken Unknown] lamotrigine 200 mg tablet 200 mg PO BID 03/12/22 [History Last Taken Unknown] paroxetine HCl 30 mg tablet 30 mg PO DAILY 05/08/22 [History Last Taken Unknown] ipratropium 0.5 mg-albuterol 3 mg (2.5 mg base)/3 mL nebulization soln 3 ml inhalation Q8H PRN shortness of breath or wheezing #90 mL 07/22/22 [Rx Last Taken Unknown] blood sugar diagnostic ([employer] Verio test strips) #100 ea 08/28/22 [Rx Last Taken Unknown] ondansetron 4 mg disintegrating tablet 4 mg PO Q8H PRN nausea and vomiting #30 tabs 09/27/22 [Rx Last Taken Unknown] omeprazole 40 mg capsule,delayed release 40 mg PO DAILY #90 caps 10/28/22 [Rx Last Taken Unknown] budesonide-formoterol HFA 160 mcg-4.5 mcg/actuation aerosol inhaler (Symbicort) 2 puff inhalation BID #10.2 grams 11/04/22 [Rx Last Taken Unknown] rosuvastatin 10 mg tablet See Rx Instructions .Route .COMPLEX #90 TABLETS 11/05/22 [Rx Last Taken Unknown] Ventolin HFA 90 mcg/actuation aerosol inhaler (albuterol sulfate) 2 puff inhalation Q6H PRN shortness of breath or wheezing #8 grams 12/09/22 [Rx Last Taken Unknown] lisinopril 30 mg tablet See Rx Instructions .Route .COMPLEX #60 tabs 07/14/23 [Rx Last Taken Unknown] empagliflozin 25 mg tablet (Jardiance) 25 mg PO QAM #30 tabs 08/25/23 [Rx Last Taken Unknown] Allergy/AdvReac Type Severity Reaction Status Date / Time red dye Allergy Severe swelling Verified 08/29/23 12:38 carbidopa Allergy Unknown Verified 08/29/23 12:38 gabapentin Allergy Unknown Verified 08/29/23 12:38 latex Allergy Rash Verified 08/29/23 12:38 quetiapine fumarate Allergy Other Verified 08/29/23 12:38 [From Seroquel] topiramate [From Topamax] Allergy Hives Verified 08/29/23 12:38 tramadol HCl [From Ultram] Allergy Other Verified 08/29/23 12:38 amitriptyline AdvReac Vomiting Verified 08/29/23 12:38 aspirin AdvReac Upset Verified 08/29/23 12:38 Stomach codeine AdvReac Vomiting Verified 08/29/23 12:38 cyclobenzaprine HCl AdvReac Upset Verified 08/29/23 12:38 [From Flexeril] Stomach etodolac [Etodolac] AdvReac Vomiting Verified 08/29/23 12:38 hydrocodone bitartrate AdvReac Vomiting Verified 08/29/23 12:38 [From Vicodin] metformin AdvReac Diarrhea Verified 08/29/23 12:38 metoclopramide [From Reglan] AdvReac Other Verified 08/29/23 12:38 naproxen [From Naprosyn] AdvReac Upset Verified 08/29/23 12:38 Stomach propoxyphene napsylate AdvReac Vomiting Verified 08/29/23 12:38 [From Darvocet-N 100] Family History Mother Malignant hyperthermia due to anesthesia Angina pectoris Arthritis Bowel disease Myocardial infarction Heart disease Hypertension High cholesterol CVA (cerebral vascular accident) Father Asthma Arthritis Myocardial infarction Heart disease High cholesterol Hypertension CVA (cerebral vascular accident) Leukemia Diabetes Grandmother Lung cancer Grandfather Diabetes Grandmother Diabetes Surgical History History of History of cholecystectomy History of orthopedic surgery History of partial hysterectomy History of total hysterectomy S/P knee surgery Social History household members: none Smoking Status: Current every day smoker tobacco type: cigarettes Tobacco: How many years used: 46 Electronic Cigarette Use: not used how long ago did patient quit smokin+ pack year smoking history (1.5-2 ppd x 32 years, 3 ppd x 14 years). second hand exposure: Yes quit status: considering quitting counseling given: provider counseling alcohol intake: never substance use type: does not use what type of physical activity do you participate in: walking and bicycling ROS ROS ED Constitutional Constitutional ED: Denies chills or fever(s) Gastrointestinal Gastrointestinal: Denies abdominal pain, constipation, fecal incontinence, nausea or vomiting Genitourinary Genitourinary ED: Reports other Details: no urinary retention ; Denies abdominal discomfort or urinary incontinence Musculoskeletal Musculoskeletal: Reports as per HPI and back pain; Denies neck pain Integumentary Denies rash or wounds Neurologic Neurologic: Denies headache(s), paresthesias or weakness EXAM Physical Exam Const Vital Signs: 08/29/23 12:38 08/29/23 13:11 Temperature 96.2 F L Temperature Source Temporal Pulse Rate 97 Respiratory Rate 18 Respiratory Effort Normal Non-Labored Respiratory Depth Normal Respiratory Pattern Normal Blood Pressure 149/89 H Blood Pressure Mean 109 Pulse Ox 97 95 Oxygen Delivery Method Room Air Room Air Positive well nourished and well developed General Appearance ED: well developed and NAD HEENT Negative for trauma or tenderness Eyes PERRL and EOMs intact bilaterally Neck full ROM and supple GI normal to inspection, nondistended, normoactive bowel sounds, soft to palpation and non-tender Back/Spine normal to inspection Lumbar Spine / Lower Back: ROM limited, paraspinal muscle tenderness right (Lumbosacral including SI joint. No palpable step-off or deformities.) and straight leg raise negative bilaterally; Negative for lumbar spinal tenderness Extremity normal to inspection, full ROM and no pedal edema Neuro oriented x3 and no sensory deficits noted Sensorium / Orientation: alert Motor Exam: strength 5/5 throughout and clonus absent Deep Tendon Reflexes: Rt Patellar (L4): 2+, Lt Patellar (L4): 2+, Rt Ankle (S1): 2+ and Lt Ankle (S1): 2+ Deep Tendon Reflexes Back: Rt Patellar (L4): 2+, Lt Patellar (L4): 2+, Rt Ankle (S1): 2+ and Lt Ankle (S1): 2+ Plantar Reflex: Downgoing: bilateral Psych mental status grossly normal and thought process normal Skin no rashes or lesions noted and no wounds MDM MDM MDM Narrative Medical decision making narrative: In order to mostly evaluate the right SI joint and the pelvic brim where patient was tender as well as the sacrum, three-view x-ray series of the lumbosacral spine was obtained, and on my interpretation shows no acute fractures. Radiology in agreement, adding that she has some mild stable anterolisthesis of L4 on L5. Knocking out her SI joint is also in the differential diagnosis. Patient's pain was treated with morphine and other medications, she was better afterwards will be discharged home supportive care advised, she is comfortable with. Radiography Diagnostic Testing: Clinical Impression(s) from Imaging Studies Lumbar Spine X-Ray 08/29/23 13:30 IMPRESSION: Degenerative changes of the spine, as detailed above. Stable grade 1 anterolisthesis of L4 on L5. Electronically Signed: Clayton Grimm MD at 14:07 EDT , Discharge Plan Triage Chief Complaint: Fall Other Complaint: Back ED Provider: Jeremiah Ga Dx/Rx/DC Orders Clinical Impression: Fall from slip, trip, or stumble, Acute lumbosacral myofascial strain Instructions: Understanding Sacroiliac Strain, ED Back and Neck Pain, General Prescriptions: No Action lamotrigine 200 mg tablet 200 mg PO BID Patient Comments: take 1 tablet by mouth twice a day paroxetine HCl 30 mg tablet 30 mg PO DAILY Patient Comments: take 2 tablets by mouth once daily alprazolam 2 MG tablet 2 mg PO TID PRN (Reason: Anxiety) (DME) Altera Nebulizer System Misc See Rx Instructions .ROUTE .MEDSUPPLY Qty: 1 3RF Rx Instructions: nebulizer and supplies fluticasone propionate 50 mcg/actuation spray,suspension See Rx Instructions .Route PRN PRN (Reason: Nasal Congestion) Qty: 15.8 3RF Rx Instructions: USE 2 SPRAYS IN EACH NOSTRIL ONCE DAILY (DME) blood-glucose meter [OneTouch Verio Flex meter] Misc See Rx Instructions .ROUTE .MEDSUPPLY Qty: 1 0RF Rx Instructions: As directed - Check blood sugar daily (DME) Blood Glucose Test Strip See Rx Instructions .ROUTE .MEDSUPPLY Qty: 50 3RF Rx Instructions: use to monitor blood sugar daily for type 2 DM (DME) blood-glucose meter Misc See Rx Instructions .ROUTE .MEDSUPPLY Qty: 1 0RF Rx Instructions: use to monitor blood sugar daily for type 2 DM (DME) lancets 32 gauge misc See Rx Instructions .ROUTE .MEDSUPPLY Qty: 100 3RF Rx Instructions: use to check blood sugar for type 2 DM ipratropium-albuterol 0.5 mg-3 mg(2.5 mg base)/3 mL solution for nebulization 3 ml INHALATION Q8H PRN (Reason: shortness of breath or wheezing) Qty: 90 3RF (DME) OneTouch Verio test strips Strip See Rx Instructions .ROUTE .MEDSUPPLY Qty: 100 3RF Rx Instructions: Check blood sugar daily ondansetron 4 mg tablet,disintegrating 4 mg PO Q8H PRN (Reason: nausea and vomiting) Qty: 30 3RF omeprazole 40 mg capsule,delayed release(DR/EC) 40 mg PO DAILY Qty: 90 3RF budesonide-formoterol [Symbicort] 160-4.5 mcg/actuation HFA aerosol inhaler 2 puff INHALATION BID Qty: 10.2 3RF rosuvastatin 10 mg tablet See Rx Instructions .ROUTE .COMPLEX Qty: 90 0RF Dose Instruction: take 1 tablet by mouth once daily Rx Instructions: take 1 tablet by mouth once daily albuterol sulfate [Ventolin HFA] 90 mcg/actuation HFA aerosol inhaler 2 puff INHALATION Q6H PRN (Reason: shortness of breath or wheezing) Qty: 8 3RF lisinopril 30 mg tablet See Rx Instructions .ROUTE .COMPLEX Qty: 60 0RF Dose Instruction: take 1 tablet by mouth once daily Rx Instructions: take 1 tablet by mouth once daily Jardiance 25 mg tablet 25 mg PO QAM Qty: 30 0RF Primary Care Provider: Coral Monae NP Referrals: Coral Monae VOCATIONAL REHABILITATION COUNSELOR, VOCATIONAL REHABILITATION COUNSELOR-C [Primary Care Provider] - 1 Week if not improving (and/or chiropractor or physical therapist (nay need referral from your primary doctor for the latter)) Disposition Disposition: Home, Self Care
[2023-08-29 14:55] VITALS: BP 118/54; PULSE 76; RESP 16; O2SAT 99
== END 2023-08-29 14:57 | disposition home or self-care (01) ==
PROVIDERS: Emergency Provider Emergency Medicine; PCP Internal Medicine; Visit Provider Emergency Medicine
DX: S39.012A Strain of muscle, fascia and tendon of lower back, initial encounter (principal); E11.40 Type 2 diabetes mellitus with diabetic neuropathy, unspecified; G89.29 Other chronic pain; F17.210 Nicotine dependence, cigarettes, uncomplicated; E78.5 Hyperlipidemia, unspecified; I10 Essential (primary) hypertension; W01.0XXA Fall on same level from slipping, tripping and stumbling without subsequent striking against object, initial encounter; J45.909 Unspecified asthma, uncomplicated
CPT/HCPCS: 59025; 59050; 72100; 84112; 96372; 99283

== ENCOUNTER → 2023-09-03 | Outpatient (CLI) | payer MEDICAID, SELFPAY ==
--- NOTE | 2023-09-03 11:05 | VDLE_ITS ---
Reason For Study: RLE Pain RIGHT LEFT GSV is normal. CFV is compressible, spontaneous, phasic, CFV is compressible, spontaneous, phasic, competent, and demonstrates normal competent and demonstrates normal augmentation. augmentation. FV is compressible, spontaneous, phasic, competent and demonstrates normal augmentation. POP V is compressible, spontaneous, phasic, competent and demonstrates normal augmentation. T/P Trunk is compressible. PTV is compressible. RT PerV is compressible. Procedure This is a venous duplex using B-mode, color flow and spectral Doppler. Exam performed in department. The exam was diagnostic. A preliminary report was called and/or faxed to Junito Alcazar office. VL/Venous Duplex US, Unilateral Interpretation Summary There is no evidence of right lower extremity deep vein thrombosis. Right great saphenous vein appears patent and compressible segmentally. Normal flow patterns left common f emoral vein Ordering Physician: Junito Alcazar Referring Physician: Coral Monae Performed By: Kishor Conti RVT
== END | disposition home or self-care (01) ==
LOC: CVS 11:03
PROVIDERS: PCP Internal Medicine; Referring Provider Physician Assistant; Visit Provider Physician Assistant
DX: M79.661 Pain in right lower leg (principal)
CPT/HCPCS: 93971

== ENCOUNTER 2023-09-30 12:08 | Emergency (ER) | payer MEDICAID, SELFPAY ==
[2023-09-30 12:09] VITALS: BP 126/88; PULSE 103; RESP 18; TEMP 35.5; O2SAT 99; BMI 26.5
--- NOTE | 2023-09-30 12:45 | ED.VIS.BACK ---
HPI History of Present Illness Chief Complaint: Back Informant: patient Onset/Context/Timing Onset: Days (5) Context: Gradual Onset Timing: Continuous Quality: Sharp and Burning Location: Lumbar, Buttock, Right Leg and Left Leg Worsened by: improves with Movement, Ambulation and - (Sitting) Relieved by: Nothing Associated Symptoms Associated Symptoms: Radiation to Right Leg and Radiation to Left Leg; Negative for Numbness, Tingling, Fever, Abdominal Pain, Dysuria, Unable to Ambulate, Unable to Transfer, Urinary Retention, Urinary Incontinence, Constipation or Fecal Incontinence PFSH [facility] Medical History Abnormal EKG Acute exacerbation of chronic low back pain Anxiety and depression Asthma Back pain Carpal tunnel syndrome Chronic back pain Chronic headaches Chronic radicular lumbar pain Concussion Cough Easy bruising Encounter for screening for malignant neoplasm of lung in current smoker with 30 pack year history or greater Essential hypertension Fall Flu vaccine need GERD (gastroesophageal reflux disease) Grief Head injury Hx of emotional problems Hyperlipidemia IBS (irritable bowel syndrome) Muscle spasm Neuropathy Panic attack Post concussion syndrome Seasonal allergies Type 2 diabetes mellitus Urinary incontinence Vision problems Home Medications alprazolam 2 mg tablet 2 mg PO TID PRN Anxiety 03/24/19 [History Last Taken 08/22/20 04:30 2 MG] nebulizers (Altera Nebulizer System) #1 ea 09/06/20 [Rx Last Taken Unknown] fluticasone propionate 50 mcg/actuation nasal spray,suspension See Rx Instructions .Route PRN PRN Nasal Congestion #15.8 mL 11/16/21 [Rx Last Taken Unknown] blood-glucose meter (OneTouch Verio Flex Meter) #1 ea 11/27/21 [Rx Last Taken Unknown] blood sugar diagnostic (Blood Glucose Test strips) #50 ea 11/28/21 [Rx Last Taken Unknown] blood-glucose meter #1 ea 11/28/21 [Rx Last Taken Unknown] lancets 32 gauge #100 ea 11/28/21 [Rx Last Taken Unknown] lamotrigine 200 mg tablet 200 mg PO BID 03/12/22 [History Last Taken Unknown] paroxetine HCl 30 mg tablet 30 mg PO DAILY 05/08/22 [History Last Taken Unknown] ipratropium 0.5 mg-albuterol 3 mg (2.5 mg base)/3 mL nebulization soln 3 ml inhalation Q8H PRN shortness of breath or wheezing #90 mL 07/22/22 [Rx Last Taken Unknown] blood sugar diagnostic ([employer] Verio test strips) #100 ea 08/28/22 [Rx Last Taken Unknown] ondansetron 4 mg disintegrating tablet 4 mg PO Q8H PRN nausea and vomiting #30 tabs 09/27/22 [Rx Last Taken Unknown] omeprazole 40 mg capsule,delayed release 40 mg PO DAILY #90 caps 10/28/22 [Rx Last Taken Unknown] budesonide-formoterol HFA 160 mcg-4.5 mcg/actuation aerosol inhaler (Symbicort) 2 puff inhalation BID #10.2 grams 11/04/22 [Rx Last Taken Unknown] rosuvastatin 10 mg tablet See Rx Instructions .Route .COMPLEX #90 TABLETS 11/05/22 [Rx Last Taken Unknown] Ventolin HFA 90 mcg/actuation aerosol inhaler (albuterol sulfate) 2 puff inhalation Q6H PRN shortness of breath or wheezing #8 grams 12/09/22 [Rx Last Taken Unknown] lisinopril 30 mg tablet See Rx Instructions .Route .COMPLEX #60 tabs 07/14/23 [Rx Last Taken Unknown] empagliflozin 25 mg tablet (Jardiance) 25 mg PO QAM #30 tabs 08/25/23 [Rx Last Taken Unknown] Allergy/AdvReac Type Severity Reaction Status Date / Time red dye Allergy Severe swelling Verified 09/30/23 12:09 carbidopa Allergy Unknown Verified 09/30/23 12:09 gabapentin Allergy Unknown Verified 09/30/23 12:09 latex Allergy Rash Verified 09/30/23 12:09 quetiapine fumarate Allergy Other Verified 09/30/23 12:09 [From Seroquel] topiramate [From Topamax] Allergy Hives Verified 09/30/23 12:09 tramadol HCl [From Ultram] Allergy Other Verified 09/30/23 12:09 amitriptyline AdvReac Vomiting Verified 09/30/23 12:09 aspirin AdvReac Upset Verified 09/30/23 12:09 Stomach codeine AdvReac Vomiting Verified 09/30/23 12:09 cyclobenzaprine HCl AdvReac Upset Verified 09/30/23 12:09 [From Flexeril] Stomach etodolac [Etodolac] AdvReac Vomiting Verified 09/30/23 12:09 hydrocodone bitartrate AdvReac Vomiting Verified 09/30/23 12:09 [From Vicodin] metformin AdvReac Diarrhea Verified 09/30/23 12:09 metoclopramide [From Reglan] AdvReac Other Verified 09/30/23 12:09 naproxen [From Naprosyn] AdvReac Upset Verified 09/30/23 12:09 Stomach propoxyphene napsylate AdvReac Vomiting Verified 09/30/23 12:09 [From Darvocet-N 100] Family History Mother Malignant hyperthermia due to anesthesia Angina pectoris Arthritis Bowel disease Myocardial infarction Heart disease Hypertension High cholesterol CVA (cerebral vascular accident) Father Asthma Arthritis Myocardial infarction Heart disease High cholesterol Hypertension CVA (cerebral vascular accident) Leukemia Diabetes Grandmother Lung cancer Grandfather Diabetes Grandmother Diabetes Surgical History History of History of cholecystectomy History of orthopedic surgery History of partial hysterectomy History of total hysterectomy S/P knee surgery Social History household members: none Smoking Status: Current every day smoker tobacco type: cigarettes Tobacco: How many years used: 46 Electronic Cigarette Use: not used how long ago did patient quit smokin+ pack year smoking history (1.5-2 ppd x 32 years, 3 ppd x 14 years). second hand exposure: Yes quit status: considering quitting counseling given: provider counseling alcohol intake: never substance use type: does not use what type of physical activity do you participate in: walking and bicycling ROS ROS ED Constitutional Constitutional ED: Denies chills or fever(s) Eyes Eyes: Denies blurry vision or change in vision ENT ENT ED: Denies rhinorrhea or sore throat Cardiovascular Cardiovascular: Denies chest pain or palpitations Respiratory/Chest Respiratory/Chest: Denies cough or dyspnea Gastrointestinal Gastrointestinal: Reports nausea and vomiting Genitourinary Genitourinary ED: Denies dysuria or hematuria Musculoskeletal Musculoskeletal: Reports back pain; Denies neck pain Integumentary Denies abscess or rash Neurologic Neurologic: Reports headache(s); Denies weakness Allergic/Immunologic Allergic/Immunologic ED: Denies mouth swelling or urticaria EXAM Physical Exam Const Vital Signs: 09/30/23 12:09 Temperature 96 F L Temperature Source Temporal Pulse Rate 103 H Respiratory Rate 18 Blood Pressure 126/88 H Blood Pressure Mean 100 Pulse Ox 99 Oxygen Delivery Method Room Air Positive well nourished and well developed General Appearance ED: well developed HEENT Reports moist mucous membranes Neck supple and no JVD Resp normal respiratory effort and clear to auscultation bilaterally Cardio regular rate and regular rhythm GI soft to palpation, non-tender and non-distended Back/Spine Back/Spine Narrative: There is tenderness over the lower lumbar spine and paraspinal muscles. There is no bony crepitance or step-off. Range of motion was limited in all motions of the lumbar spine secondary to pain. Straight leg raise is negative bilaterally. Strength is 5/5 bilaterally in the lower extremities. There are no sensory deficits noted. Deep tendon reflexes are 2/4 bilaterally in the lower extremities. Pedal pulses are equal bilaterally. Extremity normal to inspection Neuro oriented x3 and no sensory deficits noted Sensorium / Orientation: alert Motor Exam: strength 5/5 throughout Deep Tendon Reflexes: Rt Patellar (L4): 2+, Lt Patellar (L4): 2+, Rt Ankle (S1): 2+ and Lt Ankle (S1): 2+ Deep Tendon Reflexes Back: Rt Patellar (L4): 2+, Lt Patellar (L4): 2+, Rt Ankle (S1): 2+ and Lt Ankle (S1): 2+ Psych mental status grossly normal MDM MDM MDM Narrative Medical decision making narrative: Smoking cessation was discussed. Patient was advised that this most likely muscular strain and exacerbation of her chronic back pain. Patient was given injection of Toradol and morphine. Patient was given Zofran ODT. Patient was instructed to follow-up with her primary care physician for further management of her chronic pain. Patient was instructed to return if worse in any way. Patient understood and was agreeable with the plan. All questions were answered. Discharge Plan Triage Chief Complaint: Back ED Provider: Kevin Traore Dx/Rx/DC Orders Clinical Impression: Tobacco dependence, Acute exacerbation of chronic low back pain Instructions: ED Chronic Pain Prescriptions: No Action lamotrigine 200 mg tablet 200 mg PO BID Patient Comments: take 1 tablet by mouth twice a day paroxetine HCl 30 mg tablet 30 mg PO DAILY Patient Comments: take 2 tablets by mouth once daily alprazolam 2 MG tablet 2 mg PO TID PRN (Reason: Anxiety) (DME) Altera Nebulizer System [facility] Rx Instructions .ROUTE .MEDSUPPLY Qty: 1 3RF Rx Instructions: nebulizer and supplies fluticasone propionate 50 mcg/actuation spray,suspension See Rx Instructions .Route PRN PRN (Reason: Nasal Congestion) Qty: 15.8 3RF Rx Instructions: USE 2 SPRAYS IN EACH NOSTRIL ONCE DAILY (DME) blood-glucose meter [OneTouch Verio Flex meter] [facility] [place] Rx Instructions .ROUTE .MEDSUPPLY Qty: 1 0RF Rx Instructions: As directed - Check blood sugar daily (DME) Blood Glucose Test Strip See Rx Instructions .ROUTE .MEDSUPPLY Qty: 50 3RF Rx Instructions: use to monitor blood sugar daily for type 2 DM (DME) blood-glucose [place] [facility] [place] Rx Instructions .ROUTE .MEDSUPPLY Qty: 1 0RF Rx Instructions: use to monitor blood sugar daily for type 2 DM (DME) lancets [address] [facility] [place] See Rx Instructions .ROUTE .MEDSUPPLY Qty: 100 3RF Rx Instructions: use to check blood sugar for type 2 DM ipratropium-albuterol 0.5 mg-3 mg(2.5 mg base)/3 mL solution for nebulization 3 ml INHALATION Q8H PRN (Reason: shortness of breath or wheezing) Qty: 90 3RF (DME) OneTouch Verio test strips Strip See Rx Instructions .ROUTE .MEDSUPPLY Qty: 100 3RF Rx Instructions: Check blood sugar daily ondansetron 4 mg tablet,disintegrating 4 mg PO Q8H PRN (Reason: nausea and vomiting) Qty: 30 3RF omeprazole 40 mg capsule,delayed release(DR/EC) 40 mg PO DAILY Qty: 90 3RF budesonide-formoterol [Symbicort] 160-4.5 mcg/actuation HFA aerosol inhaler 2 puff INHALATION BID Qty: 10.2 3RF rosuvastatin 10 mg tablet See Rx Instructions .ROUTE .COMPLEX Qty: 90 0RF Dose Instruction: take 1 tablet by mouth once daily Rx Instructions: take 1 tablet by mouth once daily albuterol sulfate [Ventolin HFA] 90 mcg/actuation HFA aerosol inhaler 2 puff INHALATION Q6H PRN (Reason: shortness of breath or wheezing) Qty: 8 3RF lisinopril 30 mg tablet See Rx Instructions .ROUTE .COMPLEX Qty: 60 0RF Dose Instruction: take 1 tablet by mouth once daily Rx Instructions: take 1 tablet by mouth once daily Jardiance 25 mg tablet 25 mg PO QAM Qty: 30 0RF Primary Care Provider: Coral Monae NP Referrals: Coral Monae NP, AUTOMATIC SPOOLER OPERATOR-C [Primary Care Provider] - 3-5 Days Disposition Disposition: Home, Self Care
[2023-09-30] MEDS: Morphine 4 MG/ML Syringe IM (13:43)
[2023-09-30] MEDS: Ketorolac 60 MG/2 ML Vial IM (13:43)
[2023-09-30] MEDS: Ondansetron ODT 4 MG Tablet PO (13:43)
== END 2023-09-30 14:00 | disposition home or self-care (01) ==
PROVIDERS: Emergency Provider Emergency Medicine; PCP Internal Medicine; Visit Provider Emergency Medicine
DX: M54.50 Low back pain, unspecified (principal); E11.40 Type 2 diabetes mellitus with diabetic neuropathy, unspecified; G89.29 Other chronic pain; F17.210 Nicotine dependence, cigarettes, uncomplicated; E78.5 Hyperlipidemia, unspecified; I10 Essential (primary) hypertension; J45.909 Unspecified asthma, uncomplicated; R51.9 Headache, unspecified
CPT/HCPCS: 96372; 99282

== ENCOUNTER 2023-10-27 11:32 | Emergency (ER) | payer MEDICAID, SELFPAY ==
[2023-10-27 11:33] VITALS: BP 157/116; PULSE 114; RESP 16; TEMP 36.4; O2SAT 98; BMI 25.8
--- NOTE | 2023-10-27 14:22 | EDS_ITS ---
HPI History of Present Illness Chief Complaint: Back Informant: patient Narrative Narrative: 1 week history of worsening left lower back pain radiating down to her hip and inner thigh. No loss of bowel or bladder control. Patient states pain worsens with prolonged sitting. Saw her PCP put on baclofen and Lyrica and lidocaine patches states is not helping she did not take it today yet. She called back on Friday finally got a call back today while she was in the ER was told go to ED. She has history of diabetes. Denies gastric ulcers or kidney injury. She has been using Advil 400 mg. None today. She states has had back issues in the past this time is radiated down her leg that is new. She has seen Dr. Garcia a year ago states had injections which raise her glucose. She wants to get reestablished with pain management. She also states she is seeing spinal surgeon however cannot recall the name. There is discussions of surgery in the past. Denies trauma. Multiple allergies tolerate morphine and Percocets however required Zofran. Prior similar symptoms: Yes PFSH PFSH Medical History Abnormal EKG Acute exacerbation of chronic low back pain Anxiety and depression Asthma Back pain Carpal tunnel syndrome Chronic back pain Chronic headaches Chronic radicular lumbar pain Concussion Cough Easy bruising Encounter for screening for malignant neoplasm of lung in current smoker with 30 pack year history or greater Essential hypertension Fall Flu vaccine need GERD (gastroesophageal reflux disease) Grief Head injury Hx of emotional problems Hyperlipidemia IBS (irritable bowel syndrome) Muscle spasm Neuropathy Panic attack Post concussion syndrome Seasonal allergies Type 2 diabetes mellitus Urinary incontinence Vision problems Home Medications alprazolam 2 mg tablet 2 mg PO TID PRN Anxiety 03/24/19 [History Last Taken 08/22/20 04:30 2 MG] nebulizers (Altera Nebulizer System) #1 ea 09/06/20 [Rx Last Taken Unknown] fluticasone propionate 50 mcg/actuation nasal spray,suspension See Rx Instructions .Route PRN PRN Nasal Congestion #15.8 mL 11/16/21 [Rx Last Taken Unknown] blood-glucose meter ([place] Verio Flex Meter) #1 ea 11/27/21 [Rx Last Taken Unknown] blood sugar diagnostic (Blood Glucose Test strips) #50 ea 11/28/21 [Rx Last Taken Unknown] blood-glucose meter #1 ea 11/28/21 [Rx Last Taken Unknown] lancets 32 gauge #100 ea 11/28/21 [Rx Last Taken Unknown] lamotrigine 200 mg tablet 200 mg PO BID 03/12/22 [History Last Taken Unknown] paroxetine HCl 30 mg tablet 30 mg PO DAILY 05/08/22 [History Last Taken Unknown] ipratropium 0.5 mg-albuterol 3 mg (2.5 mg base)/3 mL nebulization soln 3 ml inhalation Q8H PRN shortness of breath or wheezing #90 mL 07/22/22 [Rx Last Taken Unknown] blood sugar diagnostic ([place] Verio test strips) #100 ea 08/28/22 [Rx Last Taken Unknown] ondansetron 4 mg disintegrating tablet 4 mg PO Q8H PRN nausea and vomiting #30 tabs 09/27/22 [Rx Last Taken Unknown] omeprazole 40 mg capsule,delayed release 40 mg PO DAILY #90 caps 10/28/22 [Rx Last Taken Unknown] budesonide-formoterol HFA 160 mcg-4.5 mcg/actuation aerosol inhaler (Symbicort) 2 puff inhalation BID #10.2 grams 11/04/22 [Rx Last Taken Unknown] rosuvastatin 10 mg tablet See Rx Instructions .Route .COMPLEX #90 TABLETS 11/05/22 [Rx Last Taken Unknown] Ventolin HFA 90 mcg/actuation aerosol inhaler (albuterol sulfate) 2 puff inhalation Q6H PRN shortness of breath or wheezing #8 grams 12/09/22 [Rx Last Taken Unknown] lisinopril 30 mg tablet See Rx Instructions .Route .COMPLEX #60 tabs 07/14/23 [Rx Last Taken Unknown] empagliflozin 25 mg tablet (Jardiance) 25 mg PO QAM #30 tabs 08/25/23 [Rx Last Taken Unknown] ondansetron 4 mg disintegrating tablet 4 mg PO Q8H PRN PRN Nausea #10 tabs 10/27/23 [Rx Last Taken Unknown] oxycodone-acetaminophen 5 mg-325 mg tablet 1 tab PO Q6H PRN PRN Pain 3 days #12 TABLETS 10/27/23 [Rx Last Taken Unknown] Allergy/AdvReac Type Severity Reaction Status Date / Time red dye Allergy Severe swelling Verified 10/27/23 11:35 carbidopa Allergy Unknown Verified 10/27/23 11:35 gabapentin Allergy Unknown Verified 10/27/23 11:35 latex Allergy Rash Verified 10/27/23 11:35 quetiapine fumarate Allergy Other Verified 10/27/23 11:35 [From Seroquel] topiramate [From Topamax] Allergy Hives Verified 10/27/23 11:35 tramadol HCl [From Ultram] Allergy Other Verified 10/27/23 11:35 amitriptyline AdvReac Vomiting Verified 10/27/23 11:35 aspirin AdvReac Upset Verified 10/27/23 11:35 Stomach codeine AdvReac Vomiting Verified 10/27/23 11:35 cyclobenzaprine HCl AdvReac Upset Verified 10/27/23 11:35 [From Flexeril] Stomach etodolac [Etodolac] AdvReac Vomiting Verified 10/27/23 11:35 hydrocodone bitartrate AdvReac Vomiting Verified 10/27/23 11:35 [From Vicodin] metformin AdvReac Diarrhea Verified 10/27/23 11:35 metoclopramide [From Reglan] AdvReac Other Verified 10/27/23 11:35 naproxen [From Naprosyn] AdvReac Upset Verified 10/27/23 11:35 Stomach propoxyphene napsylate AdvReac Vomiting Verified 10/27/23 11:35 [From Darvocet-N 100] Family History Mother Malignant hyperthermia due to anesthesia Angina pectoris Arthritis Bowel disease Myocardial infarction Heart disease Hypertension High cholesterol CVA (cerebral vascular accident) Father Asthma Arthritis Myocardial infarction Heart disease High cholesterol Hypertension CVA (cerebral vascular accident) Leukemia Diabetes Grandmother Lung cancer Grandfather Diabetes Grandmother Diabetes Surgical History History of History of cholecystectomy History of orthopedic surgery History of partial hysterectomy History of total hysterectomy S/P knee surgery Social History household members: none Smoking Status: Current every day smoker tobacco type: cigarettes Tobacco: How many years used: 46 Electronic Cigarette Use: not used how long ago did patient quit smokin+ pack year smoking history (1.5-2 ppd x 32 years, 3 ppd x 14 years). second hand exposure: Yes quit status: considering quitting counseling given: provider counseling alcohol intake: never substance use type: does not use what type of physical activity do you participate in: walking and bicycling ROS ROS ED Constitutional Constitutional ED: Denies chills, fever(s) or sweats Eyes Eyes: Denies change in vision ENT ENT ED: Denies dysphagia or sore throat Cardiovascular Cardiovascular: Denies chest pain, leg edema, palpitations or racing heartbeat Respiratory/Chest Respiratory/Chest: Denies cough, dyspnea or dyspnea on exertion Gastrointestinal Gastrointestinal: Denies abdominal pain, diarrhea, nausea or vomiting Genitourinary Genitourinary ED: Denies dysuria, hematuria or urinary frequency Musculoskeletal Musculoskeletal: Reports back pain; Denies extremity pain or neck pain Integumentary Denies rash or wounds Neurologic Neurologic: Denies headache(s), paresthesias or weakness EXAM Physical Exam Const Vital Signs: 10/27/23 11:33 Temperature 97.6 F L Temperature Source Temporal Pulse Rate 114 H Respiratory Rate 16 Blood Pressure 157/116 H Blood Pressure Mean 129 Pulse Ox 98 Oxygen Delivery Method Room Air Positive well nourished and well developed Constitutional Narrative: Uncomfortable, tearful at times during exam. General Appearance ED: well developed HEENT Reports moist mucous membranes normocephalic and atraumatic Eyes PERRL, EOMs intact bilaterally and conjunctivae normal General Eye ED: Yes normal appearance of both eyes Neck no lymphadenopathy and supple General: Negative for tenderness Chest Wall Chest: Negative for tenderness Resp normal respiratory effort and normal air movement Effort and Inspection: symmetric chest movement; Negative for respiratory distress Cardio regular rate, regular rhythm and no murmurs Peripheral Pulses: pulses 2+ throughout GI normal to inspection, nondistended, normoactive bowel sounds and non-tender Palpation: Negative for guarding or rebound tenderness present Back/Spine no CVA tenderness Back/Spine Narrative: No midline tenderness to palpation. Lumbar straight leg test negative. 1+ patellar reflex bilaterally. Extremity normal to inspection General Extremety ED: Negative for edema or tenderness General Extremity: Negative for edema Neuro oriented x3 and no sensory deficits noted Sensorium / Orientation: awake and alert Skin no rashes or lesions noted and no wounds MDM MDM MDM Narrative Medical decision making narrative: Interventions / MDM: Differential diagnosis: Sciatica, lumbar radiculopathy Diagnosis considered but do not suspect: No cauda equina symptoms My EKG interpretation: N/A Imaging independently reviewed and interpreted by myself: N/A External documents reviewed: N/A Test considered but not ordered:N/A ED course: Patient history consistent with lumbar radiculopathy of L3 of the left. No trauma no cauda equina symptoms. She currently on Lyrica and baclofen for which she did not take today. Requesting Toradol for which she is tolerated. This was ordered along with dose of morphine with Zofran. Discussed sciatica symptoms, she has an upcoming appoint with her doctor for reevaluation. She will likely need therapy. Also been established previous Dr. Garcia, she will call back for reestablishment. She is also seen which she reports a spine surgeon locally. She will continue her medications at this time. [facility] report was negative for opiates. Short prescription for oxycodone, Zofran. She will continue her home medications. All questions were answered. Re-evaluation: stable Disposition discussed with patient/family/significant other: Patient Case discussed with consulting clinician: N/A This note was generated with [employer] dictation software. It may contain incorrect words, spelling, and punctuation that were not noted in checking the note before signing. Discharge Plan Triage Chief Complaint: Back ED Provider: Lasha Madden Dx/Rx/DC Orders Clinical Impression: Sciatica of left side, Lumbar radicular pain Instructions: Sciatica Exercise, ED Sciatica Prescriptions: New oxycodone-acetaminophen [oxycodone-acetaminophen] 5-325 mg tablet 1 tab PO Q6H PRN PRN (Reason: Pain) 3 Days Qty: 12 0RF ondansetron [ondansetron] 4 mg tablet,disintegrating 4 mg PO Q8H PRN PRN (Reason: Nausea) Qty: 10 0RF No Action lamotrigine 200 mg tablet 200 mg PO BID Patient Comments: take 1 tablet by mouth twice a day paroxetine HCl 30 mg tablet 30 mg PO DAILY Patient Comments: take 2 tablets by mouth once daily alprazolam 2 MG tablet 2 mg PO TID PRN (Reason: Anxiety) (DME) Altera Nebulizer System Misc See Rx Instructions .ROUTE .MEDSUPPLY Qty: 1 3RF Rx Instructions: nebulizer and supplies fluticasone propionate 50 mcg/actuation spray,suspension See Rx Instructions .Route PRN PRN (Reason: Nasal Congestion) Qty: 15.8 3RF Rx Instructions: USE 2 SPRAYS IN EACH NOSTRIL ONCE DAILY (DME) blood-glucose meter [[employer] Verio Flex meter] Mis See Rx Instructions .ROUTE .MEDSUPPLY Qty: 1 0RF Rx Instructions: As directed - Check blood sugar daily (DME) Blood Glucose Test Strip See Rx Instructions .ROUTE .MEDSUPPLY Qty: 50 3RF Rx Instructions: use to monitor blood sugar daily for type 2 DM (DME) blood-glucose meter Misc See Rx Instructions .ROUTE .MEDSUPPLY Qty: 1 0RF Rx Instructions: use to monitor blood sugar daily for type 2 DM (DME) lancets 32 gauge misc See Rx Instructions .ROUTE .MEDSUPPLY Qty: 100 3RF Rx Instructions: use to check blood sugar for type 2 DM ipratropium-albuterol 0.5 mg-3 mg(2.5 mg base)/3 mL solution for nebulization 3 ml INHALATION Q8H PRN (Reason: shortness of breath or wheezing) Qty: 90 3RF (DME) OneTouch Verio test strips Strip See Rx Instructions .ROUTE .MEDSUPPLY Qty: 100 3RF Rx Instructions: Check blood sugar daily ondansetron 4 mg tablet,disintegrating 4 mg PO Q8H PRN (Reason: nausea and vomiting) Qty: 30 3RF omeprazole 40 mg capsule,delayed release(DR/EC) 40 mg PO DAILY Qty: 90 3RF budesonide-formoterol [Symbicort] 160-4.5 mcg/actuation HFA aerosol inhaler 2 puff INHALATION BID Qty: 10.2 3RF rosuvastatin 10 mg tablet See Rx Instructions .ROUTE .COMPLEX Qty: 90 0RF Dose Instruction: take 1 tablet by mouth once daily Rx Instructions: take 1 tablet by mouth once daily albuterol sulfate [Ventolin HFA] 90 mcg/actuation HFA aerosol inhaler 2 puff INHALATION Q6H PRN (Reason: shortness of breath or wheezing) Qty: 8 3RF lisinopril 30 mg tablet See Rx Instructions .ROUTE .COMPLEX Qty: 60 0RF Dose Instruction: take 1 tablet by mouth once daily Rx Instructions: take 1 tablet by mouth once daily Jardiance 25 mg tablet 25 mg PO QAM Qty: 30 0RF Primary Care Provider: Coral Monae NP Referrals: Adi Garcia DO [Non-Staff] - 3-5 Days Coral Monae NP, [facility] [Primary Care Provider] - Activity Restrictions/Additional Instructions: History and examined distant with L3 left radicular pain. Continue her baclofen and your Lyrica. Use pain medicine as prescribed. Follow-up with Dr. Garcia. May also call follow-up with your surgeon. Keep her follow-up with your PCP for reevaluation further therapy. Disposition Disposition: Home, Self Care Discharge Date/Time: 10/27/23 15:04
[2023-10-27] MEDS: Ketorolac 30 MG/ML Syringe IM (14:30)
[2023-10-27] MEDS: Morphine 4 MG/ML Syringe IM (14:30)
[2023-10-27] MEDS: Ondansetron ODT 4 MG Tablet PO (14:30)
== END 2023-10-27 15:04 | disposition home or self-care (01) ==
LOC: ED 14:32
PROVIDERS: Emergency Provider Emergency Medicine; PCP Internal Medicine; Visit Provider Emergency Medicine
DX: M54.32 Sciatica, left side (principal); E11.40 Type 2 diabetes mellitus with diabetic neuropathy, unspecified; I10 Essential (primary) hypertension; F17.210 Nicotine dependence, cigarettes, uncomplicated; M54.16 Radiculopathy, lumbar region; E78.5 Hyperlipidemia, unspecified; J45.909 Unspecified asthma, uncomplicated
CPT/HCPCS: 96372; 99282

== ENCOUNTER 2023-12-23 12:37 | Emergency (ER) | payer MEDICAID, SELFPAY ==
[2023-12-23 12:39] VITALS: PULSE 103; RESP 16; TEMP 36; O2SAT 97; BMI 25.3
[2023-12-23] MEDS: Ondansetron ODT 4 MG Tablet 8 MG PO (14:26)
[2023-12-23] MEDS: morphine 10 MG/ML Syringe 8 MG IM (14:27)
[2023-12-23] MEDS: Ketorolac 30 MG/ML Syringe IM (14:27)
--- OUTSIDE RECORDS SUMMARY | 2023-12-23 14:48 | XMS RPT_ITS | CCD ---
Author Name Unknown Address [address] [place] [address] Organization [facility] Care Team Providers Care Nurse Liaison Name Role Phone Katerine Rocha LPN Unavailable Unavailab Katerine Mcginnis LPN Unavailable Unavailab GILL Cartwright MD Primary Care Physician [phone] Christine Morrison CNP Unavailable Dheeraj Ceron MD Unavailable Gill Rodriguez MD Primary Care Provider [phone] Corrie GENERATION MANAGER.SUPERVISOR ASSEMBLY ROOM, Ochoa Primary Care Provider [phone] CORRIE, OCHOA Primary Care Unavailable CORRIE, OCHOA Primary Care Unavailable CORRIE, OCHOA Referring Unavailable CORRIE, OCHOA Primary Care Unavailable CORRIE, OCHOA Referring Unavailable CORRIE, OCHOA Primary Care Unavailable CORRIE, OCHOA Referring Unavailable CORRIE, OCHOA Primary Care Unavailable CORRIE, OCHOA Referring Unavailable KEVIN SORIANO Attending Unavailable CORRIE, OCHOA Primary Care Unavailable BRITTNEE, AMNA Attending Unavailable CORRIE, OCHOA Primary Care Unavailable CORRIE, OCHOA Attending Unavailable CORRIE, OCHOA Primary Care Unavailable CORRIE, OCHOA Referring Unavailable CORRIE, OCHOA Primary Care Unavailable CORRIE, OCHOA Attending Unavailable CORRIE, OCHOA Primary Care Unavailable BRITTNEE, AMNA Attending Unavailable CORRIE, OCHOA Primary Care Unavailable CORRIE, OCHOA Primary Care Unavailable CORRIE, OCHOA Referring Unavailable CORRIE, OCHOA Attending Unavailable CORRIE, OCHOA Primary Care Unavailable CORRIE, OCHOA Primary Care Unavailable CORRIE, OCHOA Referring Unavailable CORRIE, OCHOA Primary Care Unavailable CORRIE, OCHOA Primary Care Unavailable CORRIE, OCHOA Referring Unavailable CORRIE, OCHOA Primary Care Unavailable CORRIE, OCHOA Attending Unavailable CORRIE, OCHOA Primary Care Unavailable CORRIE, OCHOA Primary Care Unavailable DANIEL ACUNA Referring Unavailable CORRIE, OCHOA Primary Care Unavailable CORRIE, OCHOA Attending Unavailable CORRIE, OCHOA Primary Care Unavailable BRITTNEE, AMNA Attending Unavailable CORRIE, OCHOA Primary Care Unavailable CORRIE, OCHOA Referring Unavailable CORRIE, OCHOA Primary Care Unavailable BRITTNEE, AMNA Attending Unavailable CORRIE, OCHOA Primary Care Unavailable BRITTNEE, AMNA Attending Unavailable CORRIE, OCHOA Primary Care Unavailable CORRIE, OCHOA Primary Care Unavailable CORRIE, OCHOA Referring Unavailable CORRIE, OCHOA Attending Unavailable CORRIE, OCHOA Primary Care Unavailable Allergies Allergy Classification Reported Allergen(s) Allergy Type Date of Onset Reaction(s) Facility (2 sources) SOME PAIN MEDS drug allergy 7 [facility] Work Phone: (20 sources) Acetaminophen / HYDROcodone; Translations: [acetaminophen-hy drocodone] Drug Allergy 7 Nausea and vomiting (disorder), Vomiting, GI Upset [facility] (1 source) Acetaminophen / oxyCODONE; Translations: [acetaminophen-ox ycodone] Drug Allergy Nausea and vomiting (disorder) [facility] (20 sources) gabapentin; Translations: [gabapentin] Drug Allergy 8 Hives, Unknown [facility] (20 sources) Ketorolac; Translations: [ketorolac] Drug Allergy 7 Unknown, Intolerance, Other: See Comments [facility] (20 sources) Metoclopramide; Translations: [metoclopramide] Drug Allergy 9 Other: See Comments, Hives [facility] (20 sources) Morphine; Translations: [morphine] Drug Allergy 6 Mental Status Change [facility] (1 source) Prochlorperazine; Translations: [prochlorperazine ] Drug Allergy [facility] (1 source) traMADol; Translations: [tramadol] Drug Allergy [facility] (20 sources) Albuterol; Translations: [ALBUTEROL SULFATE] Drug Allergy 2 Other: See Comments [facility] Work Phone: (20 sources) Amitriptyline; Translations: [AMITRIPTYLINE] Drug Allergy 8 GI Upset, Vomiting [facility] Work Phone: (20 sources) Carbidopa / Levodopa; Translations: [CARBIDOPA-LEVODO PA] Drug Allergy 9 [facility] Work Phone: (20 sources) Codeine; Translations: [CODEINE] Drug Allergy 5 GI Upset [facility] Work Phone: (20 sources) cyclobenzaprine; Translations: [CYCLOBENZAPRINE HCL] Drug Allergy 3 Other: See Comments [facility] Work Phone: (20 sources) Etodolac; Translations: [ETODOLAC] Drug Allergy 8 GI Upset, Other: See Comments [facility] Work Phone: (20 sources) Latex; Translations: [LATEX] Propensity to adverse reactions 9 Rash [facility] (20 sources) Naproxen; Translations: [NAPROXEN] Drug Allergy 1 GI Upset [facility] (20 sources) QUEtiapine; Translations: [QUETIAPINE FUMARATE] Drug Allergy 7 [facility] Work Phone: (20 sources) Salicylate product; Translations: [SALICYLATES] Propensity to adverse reactions 5 GI Upset [facility] Work Phone: (20 sources) traMADol; Translations: [TRAMADOL HCL] Drug Allergy 7 Mental Status Change [facility] (20 sources) Propoxyphene N-Acetaminophen; Translations: [PROPOXYPHENE N-ACETAMINOPHEN] Propensity to adverse reactions 8 GI Upset [facility] Work Phone: (20 sources) Contrast media; Translations: [RED DYE] Drug Allergy 0 Swelling [facility] Work Phone: (20 sources) metFORMIN; Translations: [METFORMIN] Drug Allergy 9 Diarrhea [facility] Work Phone: (20 sources) Propoxyphene; Translations: [PROPOXYPHENE] Drug Allergy 7 Vomiting [facility] Work Phone: (20 sources) topiramate; Translations: [TOPIRAMATE] Drug Allergy 8 Hives [facility] Work Phone: (20 sources) Aspirin; Translations: [ASPIRIN] Drug Allergy 7 GI Upset [facility] Work Phone: (1 source) Acetaminophen / HYDROcodone; Translations: [HYDROCODONE-ACET AMINOPHEN] Drug Allergy 7 [facility] Medications Current Medications Medication Drug Class(es) Dates Sig (Normalized) Sig (Original) clindamycin 20 mg/ml vaginal cream (3 sources) Lincosamide Antibacterial Start: 02-04-2023 End: 02-11-2023 clindamycin phosphate 2 % vaginal cream Use 1 Applicatorful vaginally daily at bedtime for 7 days. 40 g 0 02/04/2023 02/11/2023 Active Completed/Discontinued Medications Medication Drug Class(es) Dates Sig (Normalized) Sig (Original) [id number] 200 actuat albuterol 0.09 mg/actuat metered dose inhaler (20 sources) beta2-Adrenergic Agonist Start: 04-16-2023 End: 10-13-2023 take 2 puff(s) by inhalation every four hours as needed for wheezing VENTOLIN HFA 90 mcg/actuation inhaler INHALE 2 PUFFS INTO LUNGS INSTRUCTED EVERY 4 HOURS NEEDED FOR WHEEZING/SOB FOR UP TO 30 DAYS 1 Each 2 10/13/2023 Active Problems Active Problems Problem Classification Problem Date Documented Da te Episodic/Chronic Anxiety disorders (20 sources) Anxiety; Translations: [Severe anxiety (panic)] Onset: 3 05-31-2014 Chronic Asthma (20 sources) Asthma; Translations: [Moderate persistent asthma] Onset: 5 05-02-2014 Chronic Diabetes mellitus without complication (20 sources) Diabetes mellitus; Translations: [Type 2 diabetes mellitus without complication] Onset: 6 05-02-2014 Chronic Diseases of mouth; excluding dental (1 source) Painful mouth; Translations: [Other lesions of oral mucosa] 08-05-2023 Episodic Disorders of lipid metabolism (20 sources) Hyperlipidemia; Translations: [Hyperlipidemia, unspecified] Onset: 6 02-14-2016 Chronic Esophageal disorders (20 sources) Gastroesophageal reflux disease; Translations: [Gastroesophageal reflux disease without esophagitis] Onset: 3 05-31-2014 Chronic Essential hypertension (20 sources) Hypertensive disorder; Translations: [Essential (primary) hypertension] Onset: 5 01-26-2016 Chronic Headache; including migraine (6 sources) Migraine; Translations: [Tension-type headache] Onset: 5 05-31-2014 Chronic Immunizations and screening for infectious disease (8 sources) Patient encounter status; Translations: [Encounter for immunization] Episodic Mood disorders (20 sources) Depressive disorder; Translations: [Severe manic bipolar I disorder with psychotic features] Onset: 6 05-31-2014 Chronic Nausea and vomiting (1 source) Nausea 01-09-2018 Episodic Other aftercare (1 source) Encounter for therapeutic drug level monitoring; Translations: [Encounter for therapeutic drug monitoring] Onset: 3 Episodic Other circulatory disease (1 source) Wheeze - rhonchi; Translations: [Other specified symptoms and signs involving the circulatory and respiratory systems] 07-17-2023 Episodic Other female genital disorders (1 source) Vaginal irritation; Translations: [Other specified noninflammatory disorders of vagina] Episodic Other female genital disorders (1 source) Vulval irritation; Translations: [Other specified noninflammatory disorders of vulva and perineum] Episodic Other gastrointestinal disorders (20 sources) Irritable bowel syndrome; Translations: [Mixed irritable bowel syndrome] Onset: 6 11-14-2016 Chronic Other lower respiratory disease (1 source) H/O: asthma; Translations: [Personal history of other diseases of the respiratory system] 07-17-2023 Episodic Other nervous system disorders (3 sources) Chronic pain syndrome; Translations: [Chronic pain syndrome] Chronic Other nervous system disorders (1 source) Chronic pain syndrome; Translations: [Chronic pain syndrome] Onset: 4 Chronic Other nervous system disorders (2 sources) Other chronic pain; Translations: [Chronic low back pain with sciatica, sciatica laterality unspecified, unspecified back pain laterality] Onset: 3 Chronic Other nervous system disorders (2 sources) Paresthesia of skin; Translations: [Paresthesia of saddle area] Onset: 4 Episodic Other non-traumatic joint disorders (1 source) Joint pain; Translations: [Pain in unspecified joint] Episodic Other upper respiratory infections (1 source) Chronic sinusitis; Translations: [Chronic sinusitis, unspecified] 08-05-2023 Chronic Other upper respiratory infections (6 sources) Acute upper respiratory infection; Translations: [Acute upper respiratory infection, unspecified] Episodic Residual codes; unclassified (20 sources) Obstructive sleep apnea syndrome; Translations: [Obstructive sleep apnea (adult) (pediatric)] Onset: 6 08-15-2016 Chronic Screening or history of mental health and substance abuse (2 sources) Smoker; Translations: [Nicotine dependence, unspecified, uncomplicated] Onset: 7 06-24-2017 Chronic Spondylosis; intervertebral disc disorders; other back problems (20 sources) Chronic low back pain; Translations: [Lumbago with sciatica, unspecified side] Onset: 3 Episodic Substance-related disorders (20 sources) Tobacco user; Translations: [Nicotine dependence, unspecified, uncomplicated] Onset: 5 08-21-2015 Chronic Viral infection (1 source) Genital warts; Translations: [Anogenital (venereal) warts] Episodic Past or Other Problems Problem Classification Problem Date Documented Date Episodic/Chronic Bacterial infection; unspecified site (3 sources) Drug resistance to antibacterial agent; Translations: [Resistance to other single specified antibiotic] Onset: 01-23-2023 Episodic Disorders of teeth and jaw (4 sources) Infection of tooth; Translations: [Dental abscess] Onset: 06-24-2017 06-24-2017 Episodic Inflammatory diseases of female pelvic organs (4 sources) Bacterial vaginosis; Translations: [Acute vaginitis] Onset: 01-23-2023 Episodic Other female genital disorders (1 source) Other specified noninflammatory disorders of vagina; Translations: [Vaginal irritation] Onset: 02-18-2023 Episodic Other non-traumatic joint disorders (1 source) Pain in unspecified joint; Translations: [Arthralgia, unspecified joint] Onset: 03-28-2023 Episodic Other screening for suspected conditions (not mental disorders or infectious disease) (2 sources) Mammography abnormal; Translations: [Other abnormal and inconclusive findings on diagnostic imaging of breast] Onset: 01-14-2023 Episodic Results Test Name Value Interpretation Reference Range Facil ity Vital Signs Date Time Vital Sign Value Performing Clinician Facility 10-31-2023 14:14-0500 Body weight 67.13 kg Ochoa Corrie GENERATION MANAGER.SUPERVISOR [employer]SEM[employer] ROOM Work Phone: [facility] 10-31-2023 14:14-0500 Diastolic blood pressure 78 mm[Hg] Ochoa Corrie GENERATION MANAGER.SUPERVISOR ASSEMBL[employer] ROOM Work Phone: [facility] 10-31-2023 14:14-0500 Heart rate 100 /min Ochoa Corrie GENERATION MANAGER.SUPERVISOR ASSEMBL[employer] ROOM Work Phone: [facility] 10-31-2023 14:14-0500 SaO2% (BldA) [Mass fraction] 96 % Ochoa Corrie GENERATION MANAGER.SUPERVISOR ASSEMBL[employer] ROOM Work Phone: [facility] 10-31-2023 14:14-0500 Systolic blood pressure 100 mm[Hg] Ochoa Corrie GENERATION MANAGER.SUPERVISOR ASSEMBLY ROOM Work Phone: [facility] 10-03-2023 13:45-0400 Body weight 65.77 kg Ochoa Corrie GENERATION MANAGER.SUPERVISOR ASSEMBLY ROOM Work Phone: [facility] 10-03-2023 13:45-0400 Diastolic blood pressure 80 mm[Hg] Ochoa Corrie GENERATION MANAGER.SUPERVISOR ASSEMBLY ROOM Work Phone: [facility] 10-03-2023 13:45-0400 Heart rate 96 /min Ochoa Corrie GENERATION MANAGER.SUPERVISOR ASSEMBL[employer] ROOM Work Phone: [facility] 10-03-2023 13:45-0400 SaO2% (BldA) [Mass fraction] 96 % Ochoa Corrie GENERATION MANAGER.SUPERVISOR ASSEMBLY ROOM Work Phone: [facility] 10-03-2023 13:45-0400 Systolic blood pressure 104 mm[Hg] Ochoa Corrie GENERATION MANAGER.SUPERVISOR ASSEMBLY ROOM Work Phone: [facility] 08-05-2023 14:02-0400 Body temperature 97.9 [degF] Athy PA-C Work Phone: [facility] 08-05-2023 14:02-0400 Body weight 67.13 kg Athy PA-C Work Phone: [facility] 08-05-2023 14:02-0400 Diastolic blood pressure 80 mm[Hg] Athy PA-C Work Phone: [facility] 08-05-2023 14:02-0400 Heart rate 98 /min Athy PA-C Work Phone: [facility] 08-05-2023 14:02-0400 Respiratory rate 16 /min Athy PA-C Work Phone: [facility] 08-05-2023 14:02-0400 SaO2% (BldA) [Mass fraction] 94 % Athy PA-C Work Phone: [facility] [place] 08-05-2023 14:02-0400 Systolic blood pressure 124 mm[Hg] Athy PA-C Work Phone: [facility] 07-17-2023 14:19-0400 Body temperature 98.4 [degF] Daniel Armand GENERATION MANAGER.SUPERVISOR ASSEMBLY ROOM Work Phone: [facility] [place] 07-17-2023 14:19-0400 Body weight 64.05 kg Daniel Armand GENERATION MANAGER.SUPERVISOR ASSEMBLY ROOM Work Phone: [facility] [place] 07-17-2023 14:19-0400 Diastolic blood pressure 72 mm[Hg] Daniel Armand GENERATION MANAGER.SUPERVISOR ASSEMBLY ROOM Work Phone: [facility] 07-17-2023 14:19-0400 Heart rate 98 /min Daniel Armand GENERATION MANAGER.SUPERVISOR ASSEMBLY ROOM Work Phone: [facility] 07-17-2023 14:19-0400 Respiratory rate 21 /min Daniel Armand GENERATION MANAGER.SUPERVISOR ASSEMBLY ROOM Work Phone: [facility] 07-17-2023 14:19-0400 SaO2% (BldA) [Mass fraction] 95 % Daniel Armand GENERATION MANAGER.SUPERVISOR ASSEMBLY ROOM Work Phone: [facility] 07-17-2023 14:19-0400 Systolic blood pressure 102 mm[Hg] Daniel Acuna APRN.SUPERVISOR ASSEMBLY ROOM Work Phone: [facility] [place] 04-05-2023 08:07-0400 Body temperature 97.2 [degF] Krislyn Aberegg PA Work Phone: [facility] 04-05-2023 08:07-0400 Body weight 69.85 kg Krislyn Aberegg PA Work Phone: [facility] 04-05-2023 08:07-0400 Diastolic blood pressure 78 mm[Hg] Krislyn Aberegg PA Work Phone: [facility] [place] 04-05-2023 08:07-0400 Heart rate 101 /min Krislyn Aberegg PA Work Phone: [facility] 04-05-2023 08:07-0400 Respiratory rate 18 /min Krislyn Aberegg PA Work Phone: [facility] 04-05-2023 08:07-0400 SaO2% (BldA) [Mass fraction] 99 % Krislyn Aberegg PA Work Phone: [facility] [place] 04-05-2023 08:07-0400 Systolic blood pressure 112 mm[Hg] Krislyn Aberegg PA Work Phone: [facility] [place] 03-28-2023 10:59-0400 Body weight 64.41 kg Ochoa Corrie GENERATION MANAGER.SUPERVISOR ASSEMBL[employer] ROOM Work Phone: [facility] [place] 03-28-2023 10:59-0400 Diastolic blood pressure 80 mm[Hg] Ochoa Corrie GENERATION MANAGER.SUPERVISOR ASSEMBLY ROOM Work Phone: [facility] 03-28-2023 10:59-0400 Heart rate 101 /min Ochoa Corrie GENERATION MANAGER.SUPERVISOR ASSEMBLY ROOM Work Phone: [facility] 03-28-2023 10:59-0400 SaO2% (BldA) [Mass fraction] 97 % Ochoa Corrie GENERATION MANAGER.SUPERVISOR ASSEMBLY ROOM Work Phone: [facility] 03-28-2023 10:59-0400 Systolic blood pressure 110 mm[Hg] Ochoa Corrie GENERATION MANAGER.SUPERVISOR ASSEMBLY ROOM Work Phone: [facility] 02-07-2023 10:22-0500 Body temperature 96.8 [degF] Krislyn Aberegg PA Work Phone: [facility] 02-07-2023 10:22-0500 Body weight 67.5 kg Krislyn Aberegg PA Work Phone: [facility] 02-07-2023 10:22-0500 Diastolic blood pressure 84 mm[Hg] Krislyn Aberegg PA Work Phone: [facility] 02-07-2023 10:22-0500 Heart rate 96 /min Krislyn Aberegg PA Work Phone: [facility] 02-07-2023 10:22-0500 Respiratory rate 18 /min Krislyn Aberegg PA Work Phone: [facility] 02-07-2023 10:22-0500 SaO2% (BldA) [Mass fraction] 98 % Krislyn Aberegg PA Work Phone: [facility] 02-07-2023 10:22-0500 Systolic blood pressure 122 mm[Hg] Krislyn Aberegg PA Work Phone: [facility] 01-23-2023 09:58-0500 Body weight 61.69 kg Amna [place] GENERATION MANAGER.SUPERVISOR ASSEM[employer] ROOM Work Phone: [facility] 01-23-2023 09:58-0500 Diastolic blood pressure 78 mm[Hg] Amna [place] GENERATION MANAGER.SUPERVISOR ASSEMBLY ROOM Work Phone: [facility] 01-23-2023 09:58-0500 Systolic blood pressure 132 mm[Hg] Amna Birttnee GENERATION MANAGER.SUPERVISOR ASSEMBLY ROOM Work Phone: [facility] [place] 01-21-2023 13:09-0500 Body temperature 97.3 [degF] Ochoa Corrie GENERATION MANAGER.SUPERVISOR ASSEMBLY ROOM Work Phone: [facility] [place] 01-21-2023 13:09-0500 Body weight 63.05 kg Ochoa Corrie GENERATION MANAGER.SUPERVISOR ASSEMBLY ROOM Work Phone: [facility] [place] 01-21-2023 13:09-0500 Diastolic blood pressure 68 mm[Hg] Ochoa Corrie GENERATION MANAGER.SUPERVISOR ASSEMBLY ROOM Work Phone: [facility] [place] 01-21-2023 13:09-0500 Heart rate 84 /min Ochoa Corrie GENERATION MANAGER.SUPERVISOR ASSEMBL[employer] ROOM Work Phone: [facility] [place] 01-21-2023 13:09-0500 Systolic blood pressure 100 mm[Hg] Ochoa Corrie GENERATION MANAGER.SUPERVISOR ASSEMBL[employer] ROOM Work Phone: [facility] [place] 12-23-2022 09:12-0500 Body height 161.3 cm Ochoa Corrie GENERATION MANAGER.SUPERVISOR [employer]SEM[employer] ROOM Work Phone: [facility] [place] 12-23-2022 09:12-0500 Body weight 65.32 kg Ochoa Corrie GENERATION MANAGER.SUPERVISOR ASSEMBLY ROOM Work Phone: [facility] [place] 12-23-2022 09:12-0500 Diastolic blood pressure 70 mm[Hg] Ochoa Corrie GENERATION MANAGER.SUPERVISOR ASSEMBLY ROOM Work Phone: [facility] 12-23-2022 09:12-0500 Heart rate 95 /min Ochoa Corrie GENERATION MANAGER.SUPERVISOR ASSEMBL[employer] ROOM Work Phone: [facility] 12-23-2022 09:12-0500 SaO2% (BldA) [Mass fraction] 91 % Ochoa Corrie GENERATION MANAGER.SUPERVISOR ASSEMBL[employer] ROOM Work Phone: [facility] 12-23-2022 09:12-0500 Systolic blood pressure 100 mm[Hg] Ochoa Corrie GENERATION MANAGER.SUPERVISOR ASSEMBLY ROOM Work Phone: [facility] 12-16-2022 08:49-0500 Body weight 67.13 kg Amna [place] GENERATION MANAGER.SUPERVISOR [employer]SEM[employer] ROOM Work Phone: [facility] 12-16-2022 08:49-0500 Diastolic blood pressure 78 mm[Hg] Amna [place] GENERATION MANAGER.SUPERVISOR [employer]SEM[employer] ROOM Work Phone: [facility] 12-16-2022 08:49-0500 Heart rate 8 /min Amna Brittnee GENERATION MANAGER.SUPERVISOR [employer]SEM[employer] ROOM Work Phone: [facility] [place] 12-16-2022 08:49-0500 Respiratory rate 16 /min Amna [place] GENERATION MANAGER.SUPERVISOR [employer] RO[employer] Work Phone: [facility] [place] 12-16-2022 08:49-0500 SaO2% (BldA) [Mass fraction] 96 % Amna [place] GENERATION MANAGER.SUPERVISOR [employer]SEM[employer] RO[employer] Work Phone: [facility] [place] 12-16-2022 08:49-0500 Systolic blood pressure 134 mm[Hg] Amna Brittnee GENERATION MANAGER.SUPERVISOR [employer]SEM[employer] RO[employer] Work Phone: [facility] 11-28-2022 11:06-0500 Body weight 63.96 kg Amna [place] GENERATION MANAGER.SUPERVISOR [employer]SEM[employer] RO[employer] Work Phone: [facility] 11-28-2022 11:06-0500 Diastolic blood pressure 60 mm[Hg] Amna [place] GENERATION MANAGER.SUPERVISOR [employer]SEM[employer] RO[employer] Work Phone: [facility] [place] 11-28-2022 11:06-0500 Systolic blood pressure 100 mm[Hg] Amna [place] GENERATION MANAGER.SUPERVISOR ASSEMBLY ROOM Work Phone: [facility] [place] 07-30-2022 18:36-0400 Body height 165 cm EDILBERTO MCCARTHY DO [facility] 07-30-2022 18:36-0400 Body temperature 98.06 [degF] EDILBERTO MCCARTHY DO [facility] 07-30-2022 18:36-0400 Body weight 151 kg EDILBERTO MCCARTHY DO [facility] 07-30-2022 18:36-0400 Diastolic blood pressure 93 mm[Hg] EDILBERTO MCCARTHY DO [facility] 07-30-2022 18:36-0400 Heart rate 99 /min EDILBERTO MCCARTHY DO [facility] 07-30-2022 18:36-0400 Respiratory rate 16 /min EDILBERTO MCCARTHY DO [facility] 07-30-2022 18:36-0400 Systolic blood pressure 171 mm[Hg] EDILBERTO MCCARTHY DO [facility] 06-24-2017 17:13-0400 BMI (Body Mass Index) 25.35 kg/m2 Katerine Rocha [facility] No w Clinic Work Phone: 06-24-2017 17:13-0400 Body Temperature 98.1 [degF] Katerine Rocha [facility] Now [facility] Work Phone: 06-24-2017 17:13-0400 BP Diastolic 74 mm[Hg] Katerine Rocha [facility] Work Phone: 06-24-2017 17:13-0400 BP Systolic 114 mm[Hg] Katerine Rocha [facility] Work Phone: 06-24-2017 17:13-0400 Height 163.83 cm Katerine Rocha [facility] Work Phone: 06-24-2017 17:13-0400 Pulse (Heart Rate) 100 /min Katerine Rocha [facility] Now C [facility]inic Work Phone: 06-24-2017 17:13-0400 Respiratory Rate 13 /min Katerine Rocha [facility] Work Phone: 06-24-2017 17:13-0400 Weight 68.04 kg Katerine Rocha [employer] [facility] Work Phone: Encounters Encounter Date Encounter Type Care Provider Facility Start: 12-17-2023 End: 12-18-2023 ambulatory OCHOA DENTON Facility:[facility] Start: 12-17-2023 Encounter for other preprocedural examination OCHOA DENTON [facility] Start: 12-16-2023 End: 12-16-2023 ambulatory OCHOA DENTON Facility:[facility] Start: 12-10-2023 End: 12-10-2023 ambulatory OCHOA CORRIE Facility:[facility] Start: 12-09-2023 End: 12-09-2023 ambulatory OCHOA CORRIE Facility:[facility] Start: 12-05-2023 End: 12-05-2023 ambulatory OCHOA CORRIE Facility:[facility] Start: 11-29-2023 End: 11-29-2023 ambulatory OCHOA CORRIE Facility:[facility] Start: 11-14-2023 End: 11-14-2023 ambulatory OCHOA CORRIE Facility:[facility] Start: 11-07-2023 Telephone encounter Ochoa Cleav er GENERATION MANAGER.SUPERVISOR ASSEMBLY ROOM Work Phone: Internal Medicine [place] Start: 10-31-2023 End: 10-31-2023 ambulatory OCHOA CORRIE Facility:[facility] Start: 10-31-2023 End: 10-31-2023 Patient encounter procedure Ochoa Petersonr GENERATION MANAGER.SUPERVISOR ASSEMBLY ROOM Work Phone: Internal Medicine [place] Procedures Date Procedure Procedure Detail Performing Clinician Start: 10-03-2023 [place] COVI D-19 VACCINE ( SEASON) AGE 12+ YR Ochoa Petersonr GENERATION MANAGER.SUPERVISOR ASSEMBLY ROOM Work Phone: Start: 08-05-2023 COVID & INFLUENZA A/ B & RSV NAAT, ROUTINE Cara Stoddard PA-C Work Phone: Start: 08-05-2023 Iadna respiratry pro be & rev trnscr 3-5 targets Cara Stoddard PA-C Work Phone: Start: 08-05-2023 Sars-cov-2 detection by dna/rna Cara Stoddard PA-C Work Phone: Start: 07-17-2023 Sars-cov-2 detection by dna/rna Daniel Acuna APRN.SUPERVISOR ASSEMBLY ROOM Work Phone: Start: 07-17-2023 Radiologic exam ches t 2 views Daniel Acuna APRN.SUPERVISOR ASSEMBLY ROOM Work Phone: Start: 04-05-2023 STREP A MOLECULAR (POC) Kacie MCNEAL Work Phone: Start: 02-07-2023 STREP A MOLECULAR (POC) Kacie Cadena PA Work Phone: Start: 01-14-2023 End: 01-14-2023 Mammography Ochoa Denton GENERATION MANAGER.CN P Work Phone: Start: 12-23-2022 PFIZER-BIONTECH COVI D-19 BIVALENT BOOSTER VACCINE, AGE 12+ YR Ochoa Denton GENERATION MANAGER.SUPERVISOR ASSEMBLY ROOM Work Phone: Start: 11-28-2022 BACTERIAL VAGINOSIS AMPLIFICATION [facility] GENERATION MANAGER.SUPERVISOR ASSEMBLY ROOM Work Phone: Start: 11-28-2022 Iadna chlamydia trac [facility]is [facility].SUPERVISOR ASSEMBLY ROOM Work Phone: Start: 10-25-2022 LDL CHOLESTEROL DIR [facility] Provider Start: 02-27-2015 Mammography [facility] GENERATION MANAGER.SUPERVISOR ASSEMBLY ROOM Work Phone: Start: 02-08-2015 Colonoscopy [facility] GENERATION MANAGER.SUPERVISOR ASSEMBLY ROOM Work Phone: section EDILBERTO RADHA PEDROZA DO Cholecystectomy EDILBERTO VELASCO ER DO Deviated nasal septu m (disorder) EDILBERTO MCCARTHY DO Plan of Treatment Date Care Activity Detail Author Start: 08-30-2031 Urine microalbumin profile [facility] [place] Start: 04-26-2026 Urine microalbumin profile DTAP,TDAP,TD (2 - Td or Tdap) [facility] [place] Start: 02-08-2025 Colonoscopy COLONOSCOPY [facility] [place] Start: 02-08-2025 COLORECTAL CANCER SCREENING COLORECTAL CANCER SCREENING [facility] [place] Start: 10-31-2024 Annual PCP Team Chronic Disease Visit Annual PCP Team Chronic Disease Visit [facility] [place] Start: 10-31-2024 BP Controlled (<130/80) BP Controlled (<130/80) [facility] Start: 10-03-2024 Annual PCP Team Chronic Disease Visit Annual PCP Team Chronic Disease Visit [facility] [place] Start: 10-02-2024 Hepatitis B surface antibody level LDL Cholesterol [facility] [place] Start: 07-17-2024 BP CONTROLLED (<130/80) BP CONTROLLED (<130/80) [facility] Start: 07-15-2024 ANNUAL PCP TEAM CHRONIC DISEASE VISIT ANNUAL PCP TEAM CHRONIC DISEASE VISIT [facility] [place] Start: 04-05-2024 BP CONTROLLED (<130/80) BP CONTROLLED (<130/80) [facility] Start: 04-01-2024 Hemoglobin A1c/Hemoglobin.total in Blood HbA1C [facility] [place] Start: 03-28-2024 ANNUAL PCP TEAM CHRONIC DISEASE VISIT ANNUAL PCP TEAM CHRONIC DISEASE VISIT [facility] [place] Start: 02-19-2024 BP CONTROLLED (<130/80) BP CONTROLLED (<130/80) [facility] Start: 02-04-2024 BP CONTROLLED (<130/80) BP CONTROLLED (<130/80) [facility] Start: 01-23-2024 Hepatitis B surface antibody level LDL CHOLESTEROL [facility] [place] Start: 01-21-2024 ANNUAL PCP TEAM CHRONIC DISEASE VISIT ANNUAL PCP TEAM CHRONIC DISEASE VISIT [facility] [place] Start: 01-21-2024 BP CONTROLLED (<130/80) BP CONTROLLED (<130/80) [facility] Start: 01-14-2024 Mammography [facility] [place] Start: 01-09-2024 BP CONTROLLED (<130/80) BP CONTROLLED (<130/80) [facility] Start: 01-03-2024 Hemoglobin A1c/Hemoglobin.total in Blood HBA1C [facility] [place] Start: 12-23-2023 ANNUAL PCP TEAM CHRONIC DISEASE VISIT ANNUAL PCP TEAM CHRONIC DISEASE VISIT [facility] [place] Start: 12-23-2023 BP CONTROLLED (<130/80) BP CONTROLLED (<130/80) [facility] Start: 12-23-2023 Hepatitis B surface antibody level LDL CHOLESTEROL [facility] [place] Start: 11-28-2023 BP CONTROLLED (<130/80) BP CONTROLLED (<130/80) [facility] Start: 10-25-2023 Hepatitis B surface antibody level LDL CHOLESTEROL [facility] [place] Start: 10-01-2023 End: 12-31-2023 CBC W Auto Differential panel - Blood CBC + DIFF Lab Routine Encounter for therapeutic drug monitoring Expected: 10/01/2023, Expires: 12/31/2023 [facility] Work Phone: Immunizations Immunization Date Immunization Notes Care Provider Fa cility 10-03-2023 COVID-19 vaccine, ag e 12+ yr, season (PFIZER-BIONTLendino) Ochoa Corrie GENERATION MANAGER.[facility] Work Phone: [facility] [place] Work Phone: 08-27-2023 influenza, injectabl e, quadrivalent, preservative free Ochoa Corrie GENERATION MANAGER.[facility] Work Phone: [facility] [place] Work Phone: 12-23-2022 COVID-19 booster vaccine, age 12+ yr, bivalent (PFIZER-BIONTECH) Ochoa Corrie GENERATION MANAGER.[facility] Work Phone: [facility] [place] Work Phone: 12-23-2022 pneumococcal (PCV20) vaccine, 20 valent (PREVNAR 20) Ochoa Corrie GENERATION MANAGER.[facility] Work Phone: [facility] [place] Work Phone: 12-23-2022 pneumococcal Conjuga te, unspecified formulation Ochoa Corrie GENERATION MANAGER.[facility] Work Phone: [facility] Work Phone: 09-26-2022 Influenza, injectabl e, Madin [place] Canine Kidney, quadrivalent with preservative Ochoa Corrie GENERATION MANAGER.[facility] Work Phone: [facility] [place] Work Phone: 09-26-2022 influenza, injectabl e, quadrivalent, preservative free Screen Wstr [facility] [place] Work Phone: 09-26-2022 influenza, seasonal, injectable Ochoa Correi GENERATION MANAGER.SUPERVISOR ASSEMBLY ROOM Work Phone: [facility] [place] Work Phone: 08-30-2021 tetanus toxoid, redu jordi diphtheria toxoid, and acellular pertussis vaccine, adsorbed Ochoa Corrie GENERATION MANAGER.SUPERVISOR ASSEMBLY ROOM Work Phone: [facility] [place] Work Phone: 08-09-2020 Influenza, injectabl e, Madin Denae Canine Kidney, preservative free, quadrivalent Ochoa Corrie GENERATION MANAGER.SUPERVISOR ASSEMBLY ROOM Work Phone: [facility] [place] Work Phone: 07-29-2019 influenza, injectabl e, quadrivalent, preservative free Ochoa Corrie GENERATION MANAGER.SUPERVISOR ASSEMBLY ROOM Work Phone: [facility] [place] Work Phone: 08-18-2018 influenza, injectabl e, quadrivalent, contains preservative Amna Brittnee GENERATION MANAGER.SUPERVISOR ASSEMBLY ROOM Work Phone: [facility] [place] 08-11-2017 influenza, injectabl e, quadrivalent, contains preservative Amna Brittnee GENERATION MANAGER.[facility] Work Phone: [facility] [place] 07-01-2017 influenza, injectabl e, quadrivalent, preservative free Ochoa Corrie GENERATION MANAGER.[facility] Work Phone: [facility] [place] Work Phone: 08-15-2016 influenza, injectabl e, quadrivalent, contains preservative Amna [place] GENERATION MANAGER.[facility] Work Phone: [facility] [place] Work Phone: 04-26-2016 tetanus toxoid, redu jordi diphtheria toxoid, and acellular pertussis vaccine, adsorbed Amna [place] GENERATION MANAGER.[facility] Work Phone: [facility] [place] 08-21-2015 influenza, injectabl e, quadrivalent, contains preservative Amna [place] GENERATION MANAGER[facility] Work Phone: [facility] [place] 10-17-2014 influenza, seasonal, injectable Amna Brittnee GENERATION MANAGER.SUPERVISOR ASSEMBLY ROOM Work Phone: [facility] [place] 03-01-2014 pneumococcal Conjuga te, unspecified formulation Ochoa Corrie GENERATION MANAGER.SUPERVISOR ASSEMBLY ROOM Work Phone: [facility] [place] Work Phone: 03-01-2014 pneumococcal polysaccharide vaccine, 23 valent Ochoa Corrie GENERATION MANAGER.SUPERVISOR ASSEMBLY ROOM Work Phone: [facility] [place] Work Phone: 03-01-2014 pneumococcal vaccine , unspecified formulation Ochoa Corrie GENERATION MANAGER.SUPERVISOR ASSEMBLY ROOM Work Phone: [facility] [place] Work Phone: 10-01-2013 influenza virus vacc ine, unspecified formulation Amna Brittnee GENERATION MANAGER[facility] Work Phone: [facility] [place] Work Phone: 10-01-2013 influenza, injectabl e, quadrivalent, preservative free Ochoa Corrie GENERATION MANAGER.SUPERVISOR ASSEMBLY ROOM Work Phone: [facility] [place] Work Phone: 10-01-2013 influenza, seasonal, injectable Screen Wstr [facility] [place] Work Phone: 10-01-2013 influenza, seasonal, injectable, preservative free Ochoa Corrie GENERATION MANAGER.[facility] Work Phone: [facility] [place] Work Phone: 09-18-2012 influenza virus vacc ine, unspecified formulation Amna [place] GENERATION MANAGER.[facility] Work Phone: [facility] [place] 09-12-2011 influenza virus vacc ine, unspecified formulation Amna Brittnee GENERATION MANAGER.SUPERVISOR ASSEMBLY ROOM Work Phone: [facility] [place] 09-07-2010 influenza virus vacc ine, unspecified formulation Amna Brittnee GENERATION MANAGER[facility] Work Phone: [facility] [place] 06-28-2010 pneumococcal polysaccharide vaccine, 23 valent Amna [place] GENERATION MANAGER.SUPERVISOR ASSEMBLY ROOM Work Phone: [facility] [place] Work Phone: 10-04-2009 novel influenza-H1N1 -09, preservative-free, injectable Ochoa Corrie GENERATION MANAGER.SUPERVISOR ASSEMBLY ROOM Work Phone: [facility] [place] Work Phone: 09-14-2009 influenza virus vacc ine, unspecified formulation Amna Brittnee GENERATION MANAGER.SUPERVISOR ASSEMBLY ROOM Work Phone: [facility] [place] 10-05-2008 influenza virus vacc ine, unspecified formulation Amna Brittnee GENERATION MANAGER.SUPERVISOR ASSEMBLY ROOM Work Phone: [facility] [place] Work Phone: 10-26-2007 influenza virus vacc ine, unspecified formulation Amna [place] GENERATION MANAGER.SUPERVISOR ASSEMBLY ROOM Work Phone: [facility] [place] 04-11-2007 tetanus and diphther ia toxoids, adsorbed, preservative free, for adult use (2 Lf of tetanus toxoid and 2 Lf of diphtheria toxoid) Amnadameon GordonSan Jacinto GENERATION MANAGER.SUPERVISOR ASSEMBLY ROOM Work Phone: [facility] [place] Work Phone: 08-31-1999 tetanus and diphther ia toxoids, not adsorbed, for adult use [facility] GENERATION MANAGER.SUPERVISOR ASSEMBLY ROOM Work Phone: [facility] [place] Payers Date Payer Category Payer Medicaid [id number] 2023 Medicaid [id number] 2013 Medicaid [id number] Social History Date Type Detail Facility Start: 11-28-2022 Tobacco smoking status Smokes tobacco daily (finding) [facility] Sex Assigned At Female [facility] History of tobacco use Cigarette Smoker C [facility] Start: 11-28-2022 End: 04-03-2023 Cigarettes smoked current (pack per day) - Reported 1 [facility] [place] Start: 11-28-2022 Tobacco use and exposure Smokeless tobacco non-user [facility] [place] Start: 11-28-2022 End: 10-31-2023 Alcohol intake Current non-drinker of alcohol (finding) [facility] [place] Start: 1965 Sex Assigned At Not on file C [facility] Start: 04-03-2023 End: 04-05-2023 Tobacco use panel [facility] [place] Adult Depression Screening Assessment 0 [facility] [place] Medical Equipment Procedure Code Equipment Code Equipment Origin al Text Equipment Identifier Dates Start: 03-08-2019 End: 12-16-2022 Functional Status Date Assessment Result Facility 07-30-2022 Functional Status Up ad miguel Faye kellogg [facility] Mental Status Date Assessment Result Facility 07-30-2022 Mental Status Oriented x 4 [place] [facility] Clinical Notes 08-21-2015 to 12-17-2023 Telephone Encounter - Iza Michaud RN - 11/07/2023 2:23 PM ESTTelephone Encounter - Ochoa Denton APRN.CNP - 11/07/2023 2:17 PM ESTPatient InstructionsPatient InstructionsPatient Instructions Note Date & Type Note [facility] 12-17-2023 Note [facility] 12-16-2023 Note [facility] 12-10-2023 Note [facility] 12-09-2023 Note [facility] 11-29-2023 Note [facility] 11-14-2023 Note [facility] 11-07-2023 Miscellaneous Notes Call placed to patient and provider message reviewed. Patient verbalizes understanding. Iza Michaud RN Yes, okay to try half of the Baclofen and if not helping we can make further changes. Patient calls to report that the lyrica and baclofen are causing her to be lethargic and feel high . She reports that she has them and isn't taking them at the same time and it hasn't changed anything. She continues to be very sleepy. She reports that it does take the edge off of her pain but she doesn't like how drowsy she is. Patient asking if the doses of medication could be changed. Could she try a 1/2 of a baclofen? Or asking for any other provider recommendations. Iza Michaud RN documented in this encounter [facility] [place] 10-31-2023 Note [facility] 10-31-2023 Instructions Ochoa Denton APRN.CNP - 10/31/2023 2:30 PM EST If tolerating Advil, okay to use Can take tylenol (Acetaminophen) but do not exceed 4000 mg in 24 hours. Keep doing stretches. Keep up with ice and/or heat if helpful. 5. Check with [facility] on who is covered for massage. 6. Can use the as needed oxycodone from ER. 7. We will increase your Lyrica. 8. Check with your mental health provider if Paxil can be changed to Cymbalta. 9. If pain is persistent consider PT referral. 10. Can look at CBD oils/ topicals. 11. If pain is still bad we can try a Prednisone pill taper (start at a high dose and go down to a lower dose). documented in this encounter [facility] [place] 10-31-2023 History of Present illness Narrative SUBJECTIVE Brandi Muhammad is a 58 year old female here today for a check up on her medical problems. Chief Complaint Patient presents with: Recheck: lower back pain and states pain is getting worse. No improvement with baclofen or Lyrica HPI Brandi Muhammad is a 58 year old female. Issues with her pain being worse, persistent. Has tried rest, ice, heat application and warm baths, elevation. NSAIDs cause stomach upset but taking Advil and tolerating. Lidocaine patches help minimally. Tried muscle rubs and not helpful. Cannot take strong pain medications because of not tolerating them. Prior reactions with amitriptyline. On Baclofen, had issues with Flexeril. She has been stretching. No recent PT. Tried chiropractor and not helpful. Steroids caused blood sugar issues. Pain is to her lower back, left side, goes in to buttock and down the leg. No leaking of urine or bowels. Her medications were reviewed today and her list is now up to date. Medications Current Outpatient Medications Medication Sig ipratropium-albuterol (DUONEB) 0.5 mg-3 mg(2.5 mg base)/3 mL nebu inhale contents of 1 vial ( 3 milliliters ) in nebulizer by mouth and INTO THE LUNGS every 6 hours if needed for wheezing VENTOLIN HFA 90 mcg/actuation inhaler INHALE 2 PUFFS INTO LUNGS INSTRUCTED EVERY 4 HOURS NEEDED FOR WHEEZING/SOB FOR UP TO 30 DAYS budesonide-formoterol (SYMBICORT) 160-4.5 mcg/actuation inhaler inhale 2 puffs by mouth and INTO THE LUNGS twice a day as directed fluticasone (FLONASE) 50 mcg/actuation nasal spray Use 1 Center Line in each nostril once daily. baclofen 10 mg tablet Take 1 tablet by mouth three times a day. JARDIANCE 25 mg tablet Take 1 tablet by mouth daily with breakfast. omeprazole (PRILOSEC) 20 mg capsule Take 1 capsule by mouth two times a day. lisinopril (ZESTRIL) 20 mg tablet Take 1 tablet by mouth once daily. rosuvastatin (CRESTOR) 10 mg tablet Take 1 tablet by mouth once daily. lidocaine (LIDODERM) 5 % Apply 1 Patch as directed every 24 hours. Remove old patch prior to placing new patch. Location: lower back ondansetron (ZOFRAN) 4 mg tablet Take 1 tablet by mouth every 8 hours as needed for nausea/vomiting. ARIPiprazole (ABILIFY) 2 mg tablet Take 2 mg by mouth once daily. paroxetine HCl (PAXIL ORAL) Take 30 mg by mouth once daily. lamotrigine (LAMICTAL ORAL) Take 200 mg by mouth twice daily. ALPRAZolam (XANAX) 2 mg tablet Take 1 tablet by mouth at bedtime as needed (anxiety). [facility] pregabalin (LYRICA) 150 mg capsule Take 1 capsule by mouth three times a day for 90 days. Nebulizer and Compressor For Neb 1 Each as directed. E0570 blood sugar diagnostic (FREESTYLE TEST) test strip TEST BLOOD SUGARS 2 TIMES DAILY. DX: E11.9, NON-INSULIN DEPENDENT COMPOUNDED PRESCRIPTION MEDICINE CUP AND TUBING, MOUTH PIECE FOR NEBULIZER MACHINE DX ASTHMA I45.40 Blood-Glucose Meter (FREESTYLE LITE METER) monitoring kit Freestyle LITE Meter Kit - Dx: Type 2 DM - Uncontrolled E11.65, No insulin, Tests twice a day No current facility-administered medications for this visit. ALLERGIES Allergen Reactions Red Dye Swelling Amitriptyline GI Upset, Vomiting Other reaction(s): GI Upset Asa [Salicylates] GI Upset Aspirin GI Upset Carbidopa-Levodopa Made have suicidal ideations, tremors- quit taking Codeine GI Upset Etodolac GI Upset, Other: See Comments Other reaction(s): GI Upset Flexeril [Cyclobenz* Other: See Comments nausea Gabapentin Hives, Unknown Antelope high Antelope high Hydrocodone-Acetami* Vomiting, GI Upset Other reaction(s): Vomiting Ketorolac Unknown, Intolerance, Other: See Comments Skin crawling Metformin Diarrhea Morphine Mental Status Change Naproxen GI Upset Other reaction(s): GI Upset Proair Hfa [Albuter* Other: See Comments works but makes her throat feel tight, doesn't make breathing worse Propoxyphene Vomiting Propoxyphene N-Acet* GI Upset Other reaction(s): GI Upset Seroquel [Quetiapin* Antelope drunk at high doses Topiramate Hives Ultram [Tramadol Hc* Mental Status Change Latex Rash Metoclopramide Other: See Comments, Hives ACTIVE PROBLEM LIST Severe Anxiety With Panic - 12/23/2022 Chronic Low Back Pain With Sciatica - 12/23/2022 Gastroesophageal Reflux Disease Without Esophagitis - 12/23/2022 Irritable Bowel Syndrome With Both Constipation and Diarrhea - 11/14/2016 Johnny On Cpap - 08/15/2016 Depression - 08/15/2016 Diabetes Mellitus Type 2, Controlled, Without Complications (Hcc) - 02/14/2016 Hyperlipidemia - 02/14/2016 Hypertension Goal Bp (Blood Pressure) < 140/90 - 09/13/2015 Tobacco Use Disorder - 08/21/2015 Severe Manic Bipolar I Disorder With Psychotic Features ([facility]) Moderate Persistent Asthma - 10/15/2005 Social History Tobacco Use Smoking status: Every Day Packs/day: 1.00 Years: 30.00 Additional pack years: 0.00 Total pack years: 30.00 Types: Cigarettes Smokeless tobacco: Never Vaping Use Vaping Use: Never used Substance Use Topics Alcohol use: No Drug use: Not Currently Comment: pot and speed as a teenager Review of Systems Respiratory: Negative. Cardiovascular: Negative. Musculoskeletal: Positive for arthralgias, back pain and myalgias. OBJECTIVE BP 100/78 Pulse 100 Wt 148 lb (67.1kg) SpO2 96% LMP 04/13/2010 Physical Exam Vitals and nursing note reviewed. Constitutional: General: She is awake. She is not in acute distress. Appearance: Normal appearance. She is well-developed and well-groomed. She is not ill-appearing, toxic-appearing or diaphoretic. HENT: Head: Normocephalic. Right Ear: External ear normal. Left Ear: External ear normal. Nose: Nose normal. Eyes: General: Vision grossly intact. Conjunctiva/sclera: Conjunctivae normal. Pupils: Pupils are equal, round, and reactive to light. Neck: Vascular: No JVD. Trachea: Trachea normal. Cardiovascular: Rate and Rhythm: Normal rate and regular rhythm. Pulses: Normal pulses. Heart sounds: Normal heart sounds. No murmur heard. Pulmonary: Effort: Pulmonary effort is normal. No accessory muscle usage, prolonged expiration or respiratory distress. Breath sounds: Normal breath sounds. Musculoskeletal: Cervical back: Neck supple. Skin: General: Skin is warm and dry. Capillary Refill: Capillary refill takes less than 2 seconds. Neurological: General: No focal deficit present. Mental Status: She is alert and oriented to person, place, and time. Mental status is at baseline. Psychiatric: Attention and Perception: Attention and perception normal. Mood and Affect: Mood and affect normal. Speech: Speech normal. Behavior: Behavior normal. Behavior is cooperative. Thought Content: Thought content normal. Cognition and Memory: Cognition and memory normal. Judgment: Judgment normal. ASSESSMENT/PLAN: 1. Chronic bilateral low back pain with left-sided sciatica - ICD9: 724.2, 724.3, 338.29, ICD10: M54.42, G89.29 (primary diagnosis) Worsening chronic back pain. Increase Lyrica, can use OTC advil since tolerating that okay and tylenol. Can try non pharm pain management and massage if covered. Check MRI. - PREGABALIN 150 MG CAPSULE - MASSAGE THERAPY - MRI LUMBAR SPINE WO IVCON - CONSULT TO [facility]-PHARMAC[facility]IN MANAGEMENT 2. Chronic pain syndrome - ICD9: 338.4, ICD10: G89.4 - PREGABALIN 150 MG CAPSULE - MASSAGE THERAPY - MRI LUMBAR SPINE WO IVCON - CONSULT TO [facility]PH[facility]AC[facility] MANAG[facility] 3. Radiculopathy of lumbar region - ICD9: 724.4, ICD10: M54.16 - MRI LUMBAR SPINE WO IVCON - CONSULT TO [facility]PHARMAC[facility]IN MANAG[facility] Portions of this note have been entered by ancillary staff. I have reviewed and when necessary edited, so that they are an adequate record of my encounter with this patient Please note that parts of this document were created using voice recognition software and therefore may contain grammatical errors. Patient verbalizes understanding of instructions from today's visit and in agreement with treatment plan. Questions answered. Agrees to call the office if questions, concerns of issues with acute symptoms not improving or if they worsen. See diagnoses and orders for additional plan(s). Allergies and medications were reviewed, list was updated, and refills given if needed. Past medical, surgical, social, and family history reviewed and updated as appropriate. Encouraged proper diet & exercise as well as compliance with taking medications. Age-appropriate health preventative measures were discussed. Return in about 3 weeks (around 11/21/2023) for recheck on back pain. AC Fortune documented in this encounter [facility] [place] 10-27-2023 Miscellaneous Notes Patient returns call and reports that her insurance will not cover the massages. Patient is currently at the ER because pain got so bad that she is terribly nauseous, having trouble sitting and standing. She said she will discuss with you at her appointment on Friday10/31/23 Iza Michaud RN LEFT MESSAGE FOR PATIENT TO CALL OFFICE. She could try massage, has she discussed pain control strategies with our non-medication pain management? That is an option. We can try an increase Lyrica if okay with her. Patient calling said her back pain is not any better with taking the Lyrica three times daily and the Baclofen three times daily. She said she gets nauseated from the pain, lower back radiates to her buttock and down left leg. She said she can not get comfortable to sleep or sit. Patient does not want to go back to pain management, had reaction to injections. She has appt scheduled with [facility] for 10/31/2023 and she will keep that has a busy week next week. Patient asking if any other recommendations? She was asking about massage? Advised may not be covered by insurance and may not help at all. Please advise documented in this encounter [facility] [place] 10-27-2023 Miscellaneous Notes Patient has been identified by name and date of : Yes Patient phones for refill(s): Requested Prescriptions Pending Prescriptions Disp Refills ipratropium-albuterol (DUONEB) 0.5 mg-3 mg(2.5 mg base)/3 mL nebu [Pharmacy Med Name: IPRAT-ALBUT 0.5-3(2.5) MG/3 ML] 180 mL 2 Sig: inhale contents of 1 vial ( 3 milliliters ) in nebulizer by mouth and INTO THE LUNGS every 6 hours if needed for wheezing Date of last office visit in primary care: 10/03/2023 Date of next office visit in primary care: 10/31/2023 Last 2 Encounter Wt Readings: Date: Wt: 10/03/2023 65.8 kg (145 lb) 08/05/2023 67.1 kg (148 lb) Previous labs/tests for medication: Not applicable Please advise. Thank you. Vero Cross LPN. documented in this encounter [facility] [place] 10-13-2023 Miscellaneous Notes Patient has been identified by name and date of : Yes, Provider R Corrie Date 10/23/23 Patient phones for refill(s): Requested Prescriptions Pending Prescriptions Disp Refills VENTOLIN HFA 90 mcg/actuation inhaler 1 Each 2 Sig: INHALE 2 PUFFS INTO LUNGS INSTRUCTED EVERY 4 HOURS NEEDED FOR WHEEZING/SOB FOR UP TO 30 DAYS Date of last office visit in primary care: 08/18/2018 Date of next office visit in primary care: Visit date not found Last 2 Encounter Wt Readings: Date: Wt: 10/03/2023 65.8 kg (145 lb) 08/05/2023 67.1 kg (148 lb) Please advise. Thank you. Yadira Li LPN. documented in this encounter [facility] [place] 10-06-2023 Miscellaneous Notes Pharmacy verified in [facility] Patient has been identified by name and date of : Yes Patient aware RX will be sent to pharmacy. No need to notify patient. Patient phones for refill(s): Requested Prescriptions Pending Prescriptions Disp Refills budesonide-formoterol (SYMBICORT) 160-4.5 mcg/actuation inhaler [Pharmacy Med Name: SYMBICORT 160-4.5 MCG INHALER] 20.4 g Sig: inhale 2 puffs by mouth and INTO THE LUNGS twice a day as directed Date of last office visit : 10/03/2023 Date of next office visit : 10/31/2023 Last 2 Encounter Wt Readings: Date: Wt: 10/03/2023 65.8 kg (145 lb) 08/05/2023 67.1 kg (148 lb) Not applicable Please advise. Zamzam Balbuena documented in this encounter [facility] [place] 10-03-2023 Note [facility] 10-03-2023 Instructions Ochoa Denton APRN.MANUEL - 10/03/2023 2:35 PM EDT For your pain we will start the Lyrica at a higher dose (increase to the 75 mg pill) and start taking this twice a day, also start the Baclofen twice a day. If still having bad muscle spasms then increase the Baclofen to three times a day. If still having a lot of pain then add the third dose of Lyrica in also. documented in this encounter [facility] [place] 10-03-2023 History of Present illness Narrative SUBJECTIVE Brandi Muhammad is a 58 year old female here today for a check up on her medical problems. Chief Complaint Patient presents with: Back Pain Results: discuss lab results HPI Brandi Muhammad is a 58 year old female. Here today for routine follow up, also wants to discuss her back pain worsening. She had labs done before her visit today. Overall labs stable, hgba1c improved to 7.2%, cholesterol improved. Breathing doing well, no cough, shortness of breath or chest tightness or chest pain. Pain in her back is getting pretty bad. Bad back spasms. Using NSAIDs (ibuprofen), muscle rubs, heat and ice, has done PT. Issues with amitriptyline, Topamax, gabapentin. Issues with norco, ultram, codeine, morphine. Tried Lidocaine patches. Prior injections for pain caused issues. Her medications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 Federal rules restrict any use of the information to criminally investigate or prosecute any alcohol or drug abuse patient.[facility]In the event this information is protected by the Federal Confidentiality of Alcohol and Drug Abuse Patient Records regulations: The Federal rules restrict any use of the information to criminally investigate or prosecute any alcohol or drug abuse patient.[facility]In the event this information is protected by the Federal Confidentiality of Alcohol and Drug Abuse Patient Records regulations: The Federal rules restrict any use of the information to criminally investigate or prosecute any alcohol or drug abuse patient.[facility]In the event this information is protected by the Federal Confidentiality of Alcohol and Drug Abuse Patient Records regulations: The Federal rules restrict any use of the information to criminally investigate or prosecute any alcohol or drug abuse patient.[facility]In the event this information is protected by the Federal Confidentiality of Alcohol and Drug Abuse Patient Records regulations: The Federal rules restrict any use of the information to criminally investigate or prosecute any alcohol or drug abuse patient.[facility]In the event this information is protected by the Federal Confidentiality of Alcohol and Drug Abuse Patient Records regulations: The Federal rules restrict any use of the information to criminally investigate or prosecute any alcohol or drug abuse patient.[facility]In the event this information is protected by the Federal Confidentiality of Alcohol and Drug Abuse Patient Records regulations: The Federal rules restrict any use of the information to criminally investigate or prosecute any alcohol or drug abuse patient.[facility]In the event this information is protected by the Federal Confidentiality of Alcohol and Drug Abuse Patient Records regulations: The Federal rules restrict any use of the information to criminally investigate or prosecute any alcohol or drug abuse patient.[facility]In the event this information is protected by the Federal Confidentiality of Alcohol and Drug Abuse Patient Records regulations: The Federal rules restrict any use of the information to criminally investigate or prosecute any alcohol or drug abuse patient.[facility]In the event this information is protected by the Federal Confidentiality of Alcohol and Drug Abuse Patient Records regulations: The Federal rules restrict any use of the information to criminally investigate or prosecute any alcohol or drug abuse patient.[facility]In the event this information is protected by the Federal Confidentiality of Alcohol and Drug Abuse Patient Records regulations: The Federal rules restrict any use of the information to criminally investigate or prosecute any alcohol or drug abuse patient.[facility]In the event this information is protected by the Federal Confidentiality of Alcohol and Drug Abuse Patient Records regulations: The Federal rules restrict any use of the information to criminally investigate or prosecute any alcohol or drug abuse patient.[facility]In the event this information is protected by the Federal Confidentiality of Alcohol and Drug Abuse Patient Records regulations: The Federal rules restrict any use of the information to criminally investigate or prosecute any alcohol or drug abuse patient.[facility]In the event this information is protected by the Federal Confidentiality of Alcohol and Drug Abuse Patient Records regulations: The Federal rules restrict any use of the information to criminally investigate or prosecute any alcohol or drug abuse patient.[facility]In the event this information is protected by the Federal Confidentiality of Alcohol and Drug Abuse Patient Records regulations: The Federal rules restrict any use of the information to criminally investigate or prosecute any alcohol or drug abuse patient.[facility]woodIn the event this information is protected by the Federal Confidentiality of Alcohol and Drug Abuse Patient Records regulations: The Federal rules restrict any use of the information to criminally investigate or prosecute any alcohol or drug abuse patient.[facility]In the event this information is protected by the Federal Confidentiality of Alcohol and Drug Abuse Patient Records regulations: The Federal rules restrict any use of the information to criminally investigate or prosecute any alcohol or drug abuse patient.[facility]woodIn the event this information is protected by the Federal Confidentiality of Alcohol and Drug Abuse Patient Records regulations: The Federal rules restrict any use of the information to criminally investigate or prosecute any alcohol or drug abuse patient.[facility]In the event this information is protected by the Federal Confidentiality of Alcohol and Drug Abuse Patient Records regulations: The Federal rules restrict any use of the information to criminally investigate or prosecute any alcohol or drug abuse patient.[facility]In the event this information is protected by the Federal Confidentiality of Alcohol and Drug Abuse Patient Records regulations: The Federal rules restrict any use of the information to criminally investigate or prosecute any alcohol or drug abuse patient.[facility]In the event this information is protected by the Federal Confidentiality of Alcohol and Drug Abuse Patient Records regulations: The Federal rules restrict any use of the information to criminally investigate or prosecute any alcohol or drug abuse patient.[facility]woodIn the event this information is protected by the Federal Confidentiality of Alcohol and Drug Abuse Patient Records regulations: The Federal rules restrict any use of the information to criminally investigate or prosecute any alcohol or drug abuse patient.[facility] [place] the event this information is protected by the Federal Confidentiality of Alcohol and Drug Abuse Patient Records regulations: The Federal rules restrict any use of the information to criminally investigate or prosecute any alcohol or drug abuse patient.[facility] [place] the event this information is protected by the Federal Confidentiality of Alcohol and Drug Abuse Patient Records regulations: The Federal rules restrict any use of the information to criminally investigate or prosecute any alcohol or drug abuse patient.[facility] [place] the event this information is protected by the Federal Confidentiality of Alcohol and Drug Abuse Patient Records regulations: The Federal rules restrict any use of the information to criminally investigate or prosecute any alcohol or drug abuse patient.[facility] [place] the event this information is protected by the Federal Confidentiality of Alcohol and Drug Abuse Patient Records regulations: The Federal rules restrict any use of the information to criminally investigate or prosecute any alcohol or drug abuse patient.[facility] [place] the event this information is protected by the Federal Confidentiality of Alcohol and Drug Abuse Patient Records regulations: The Federal rules restrict any use of the information to criminally investigate or prosecute any alcohol or drug abuse patient.[facility] [place] the event this information is protected by the Federal Confidentiality of Alcohol and Drug Abuse Patient Records regulations: The Federal rules restrict any use of the information to criminally investigate or prosecute any alcohol or drug abuse patient.[facility] [place]wood[place] the event this information is protected by the Federal Confidentiality of Alcohol and Drug Abuse Patient Records regulations: The Federal rules restrict any use of the information to criminally investigate or prosecute any alcohol or drug abuse patient.[facility] [place] Reason for Visit (unrecogniz ed section and content) Reason Comments Results Reason Comments Establish Care Reason Onset Date Comments Refill Request 12/27/2022 OUT OF MEDS Reason Onset Date Comments Refill Request 01/02/2023 Reason Comments Back Pain Reason Comments Follow Up Reason Comments Follow Up BV/Yeast Reason Comments Results Reason Comments Sore Throat Bilateral ear pain, RICKS, fatigue, fever, chills, diarrhea x4 days Reason Onset Date Comments Refill Request 02/28/2023 Reason Comments Patient Update Reason Comments Hypertension Reason Comments ER F/U [facility] 03/14/2023 with elevated BP, blood sugar and leg pain Reason Onset Date Comments Refill Request 03/31/2023 Reason Comments Cough Cough, congestion we ak x 2 days Reason Comments URI Reason Comments Refill Request Reason Comments AEP Form Reason Comments Medication Problem Orders Reason Comments Cough Chest congestion, ru nny nose, RICKS, fever x 3 days Reason Onset Date Comments Refill Request 07/21/2023 Reason Onset Date Comments Refill Request 08/05/2023 Reason Comments Nasal Congestion drainage, cough, bod yaches, fever, headache x couple weeks, increased x 3 days Reason Onset Date Comments Refill Request 09/25/2023 Reason Onset Date Comments Refill Request 10/01/2023 Reason Comments Back Pain Results discuss lab results Reason Onset Date Comments Refill Request 10/13/2023 Reason Comments Patient Question Reason Comments Recheck lower back pain and states pain is getting worse. No improvement with baclofen or Lyrica Care Teams (unrecognized sec tion and content) Nurse Liaison Relationship Specialty Start Date End Date Gill Rodriguez MD [address] [place] [address] PCP - General Internal Medicine 06/28/19 Christine Morrison, MANUEL [address] [place] [address] Referring Family Medicine 05/01/18 Dheeraj Ceron MD [address] [place] [address] Referring Cerebrovascular 05/10/19 Nurse Liaison Relationship Specialty Start Date End Date Gill Rodriguez MD [address] [place] [address] PCP - General Internal Medicine 06/28/19 Christine Morrison, MANUEL [address] [place] [address] Referring Family Medicine 05/01/18 Dheeraj Ceron MD [address] [place] [address] Referring Cerebrovascular 05/10/19 Nurse Liaison Relationship Specialty Start Date End Date Ochoa Denton, GENERATION MANAGER.SUPERVISOR ASSEMBLY ROOM [address] [facility] [place] [address] PCP - General Internal Medicine 12/23/22 Christine Morrison, SUPERVISOR ASSEMBLY ROOM [address] [place] [address] Referring Family Medicine 05/01/18 Dheeraj Ceron MD [address] [place] [address] Referring Cerebrovascular 05/10/19 Nurse Liaison Relationship Specialty Start Date End Date Ochoa Denton, GENERATION MANAGER.SUPERVISOR ASSEMBLY ROOM [address] [facility] [place] [address] PCP - General Internal Medicine 12/23/22 Christine Morrison, SUPERVISOR ASSEMBLY ROOM [address] [place] [address] Referring Family Medicine 05/01/18 Dheeraj Ceron MD [address] [place] [address] Referring Cerebrovascular 05/10/19 Nurse Liaison Relationship Specialty Start Date End Date Ochoa Denton APRN.SUPERVISOR ASSEMBLY ROOM [address] [facility] [place] [address] PCP - General Internal Medicine 12/23/22 Christine Morrison, MANUEL [address] [place] [address] Referring Family Medicine 05/01/18 Dheeraj Ceron MD [address] [place] [address] Referring Cerebrovascular 05/10/19 Nurse Liaison Relationship Specialty Start Date End Date Ochoa Denton GENERATION MANAGER.SUPERVISOR ASSEMBLY ROOM [address] [facility] [place] [address] PCP - General Internal Medicine 12/23/22 Christine Morrison, SUPERVISOR ASSEMBLY ROOM [address] [place] [address] Referring Family Medicine 05/01/18 Dheeraj Ceron MD [address] [place] [address] Referring Cerebrovascular 05/10/19 Nurse Liaison Relationship Specialty Start Date End Date Ochoa Denton GENERATION MANAGER.SUPERVISOR ASSEMBLY ROOM [address] [place] [address] PCP - General Internal Medicine 12/23/22 Christine Morrison, SUPERVISOR ASSEMBLY ROOM [address] [place] [address] Referring Family Medicine 05/01/18 Dheeraj Ceron MD [address] [place] [address] Referring Cerebrovascular 05/10/19 Nurse Liaison Relationship Specialty Start Date End Date Ochoa Denton APRN.SUPERVISOR ASSEMBLY ROOM [address] [facility] [place] [address] PCP - General Internal Medicine 12/23/22 Christine Morrison, MANUEL [address] [place] [address] Referring Family Medicine 05/01/18 Dheeraj Ceron MD [address] [place] [address] Referring Cerebrovascular 05/10/19 Nurse Liaison Relationship Specialty Start Date End Date Ochoa Denton APRN.SUPERVISOR ASSEMBLY ROOM [address] [facility] [place] [address] PCP - General Internal Medicine 12/23/22 Christine Morrison, MANUEL [address] [place] [address] Referring Family Medicine 05/01/18 Dheeraj Ceron MD [address] [place] [address] Referring Cerebrovascular 05/10/19 Nurse Liaison Relationship Specialty Start Date End Date Ochoa Denton APRN.SUPERVISOR ASSEMBLY ROOM [address] [facility] [place] [address] PCP - General Internal Medicine 12/23/22 Christine Morrison, SUPERVISOR ASSEMBLY ROOM [address] [place] [address] Referring Family Medicine 05/01/18 Dheeraj Ceron MD [address] [place] [address] Referring Cerebrovascular 05/10/19 Nurse Liaison Relationship Specialty Start Date End Date Ochoa Denton APRN.SUPERVISOR ASSEMBLY ROOM [address] [facility] [place] [address] PCP - General Internal Medicine 12/23/22 Christine Morrison, MANUEL [address] [place] [address] Referring Family Medicine 05/01/18 Dheeraj Ceron MD [address] [place] [address] Referring Cerebrovascular 05/10/19 Nurse Liaison Relationship Specialty Start Date End Date Ochoa Denton GENERATION MANAGER.SUPERVISOR ASSEMBLY ROOM [address] [facility] [place] [address] PCP - General Internal Medicine 12/23/22 Christine Morrison, MANUEL [address] [place] [address] Referring Family Medicine 05/01/18 Dheeraj Ceron MD [address] [place] [address] Referring Cerebrovascular 05/10/19 Nurse Liaison Relationship Specialty Start Date End Date Ochoa Denton APRN.SUPERVISOR ASSEMBLY ROOM [address] [facility] [place] [address] PCP - General Internal Medicine 12/23/22 Christine Morrison, SUPERVISOR ASSEMBLY ROOM [address] [place] [address] Referring Family Medicine 05/01/18 Dheeraj Ceron MD [address] [place] [address] Referring Cerebrovascular 05/10/19 Nurse Liaison Relationship Specialty Start Date End Date Ochoa Denton GENERATION MANAGER.SUPERVISOR ASSEMBLY ROOM [address] [place] [address] PCP - General Internal Medicine 12/23/22 Christine Morrison, SUPERVISOR ASSEMBLY ROOM [address] [place] [address] Referring Family Medicine 05/01/18 Dheeraj Ceron MD [address] [place] [address] Referring Cerebrovascular 05/10/19 Nurse Liaison Relationship Specialty Start Date End Date Ochoa Denton APRN.SUPERVISOR ASSEMBLY ROOM [address] [place] [address] PCP - General Internal Medicine 12/23/22 Christine Morrison, MANUEL [address] [place] [address] Referring Family Medicine 05/01/18 Dheeraj Ceron MD [address] [place] [address] Referring Cerebrovascular 05/10/19 Nurse Liaison Relationship Specialty Start Date End Date Ochoa Denton GENERATION MANAGER.SUPERVISOR ASSEMBLY ROOM [address] [place] [address] PCP - General Internal Medicine 12/23/22 Christine Morrison, SUPERVISOR ASSEMBLY ROOM [address] [place] [address] Referring Family Medicine 05/01/18 Dheeraj Ceron MD [address] [place] [address] Referring Cerebrovascular 05/10/19 Nurse Liaison Relationship Specialty Start Date End Date Ochoa Denton APRN.SUPERVISOR ASSEMBLY ROOM [address] [facility] [place] [address] PCP - General Internal Medicine 12/23/22 Christine Morrison, SUPERVISOR ASSEMBLY ROOM [address] [place] [address] Referring Family Medicine 05/01/18 Dheeraj Ceron MD [address] [place] [address] Referring Cerebrovascular 05/10/19 Nurse Liaison Relationship Specialty Start Date End Date Ochoa Denton GENERATION MANAGER.SUPERVISOR ASSEMBLY ROOM [address] [facility] [place] [address] PCP - General Internal Medicine 12/23/22 Christine Morrison, MANUEL [address] [place] [address] Referring Family Medicine 05/01/18 Dheeraj Ceron MD [address] [place] [address] Referring Cerebrovascular 05/10/19 Nurse Liaison Relationship Specialty Start Date End Date Ochoa Denton GENERATION MANAGER.SUPERVISOR ASSEMBLY ROOM [address] [facility] [place] [address] PCP - General Internal Medicine 12/23/22 Christine Morrison, SUPERVISOR ASSEMBLY ROOM [address] [place] [address] Referring Family Medicine 05/01/18 Dheeraj Ceron MD [address] [place] [address] Referring Cerebrovascular 05/10/19 Nurse Liaison Relationship Specialty Start Date End Date Ochoa Denton, GENERATION MANAGER.SUPERVISOR ASSEMBLY ROOM [address] [place] [address] PCP - General Internal Medicine 12/23/22 Christine Morrison, SUPERVISOR ASSEMBLY ROOM [address] [place] [address] Referring Family Medicine 05/01/18 Dheeraj Ceron MD [address] [place] [address] Referring Cerebrovascular 05/10/19 Nurse Liaison Relationship Specialty Start Date End Date Ochoa Denton APRN.SUPERVISOR ASSEMBLY ROOM [address] [facility] [place] [address] PCP - General Internal Medicine 12/23/22 Tamiko Christine, SUPERVISOR ASSEMBLY ROOM [address] [place] [address] Referring Family Medicine 05/01/18 Dheeraj Ceron MD [address] [place] [address] Referring Cerebrovascular 05/10/19 Nurse Liaison Relationship Specialty Start Date End Date Ochoa Denton APRN.SUPERVISOR ASSEMBLY ROOM [facility] [place] [address] PCP - General Internal Medicine 12/23/22 Christine Morrison, SUPERVISOR ASSEMBLY ROOM [address] [place] [address] Referring Family Medicine 05/01/18 Dheeraj Ceron MD [address] [place] [address] Referring Cerebrovascular 05/10/19 Nurse Liaison Relationship Specialty Start Date End Date Ochoa Denton GENERATION MANAGER.SUPERVISOR ASSEMBLY ROOM [facility] [place] [address] PCP - General Internal Medicine 12/23/22 Christine Morrison, SUPERVISOR ASSEMBLY ROOM [address] [place] [address] Referring Family Medicine 05/01/18 Dheeraj Ceron MD [address] [place] [address] Referring Cerebrovascular 05/10/19 Nurse Liaison Relationship Specialty Start Date End Date Ochoa Denton APRN.SUPERVISOR ASSEMBLY ROOM [address] [place] [address] PCP - General Internal Medicine 12/23/22 Christine Morrison, MANUEL [address] [place] [address] Referring Family Medicine 05/01/18 Dheeraj Ceron MD [address] [place] [address] Referring Cerebrovascular 05/10/19 Nurse Liaison Relationship Specialty Start Date End Date Ochoa Denton APRN.SUPERVISOR ASSEMBLY ROOM [address] [facility] [place] [address] PCP - General Internal Medicine 12/23/22 Christine Morrison CNP [address] [place] [address] Referring Family Medicine 05/01/18 Dheeraj Ceron MD [address] [place] [address] Referring Cerebrovascular 05/10/19 Nurse Liaison Relationship Specialty Start Date End Date Ochoa Denton APRN.SUPERVISOR ASSEMBLY ROOM [address] [facility] [place] [address] PCP - General Internal Medicine 12/23/22 Christine Morrison, MANUEL [address] [place] [address] Referring Family Medicine 05/01/18 Dheeraj Ceron MD [address] [place] [address] Referring Cerebrovascular 05/10/19 Nurse Liaison Relationship Specialty Start Date End Date Ochoa Denton APRN.SUPERVISOR ASSEMBLY ROOM [address] [facility] [place] [address] PCP - General Internal Medicine 12/23/22 Christine Morrison CNP [address] [place] [address] Referring Family Medicine 05/01/18 Dheeraj Ceron MD [address] [place] [address] Referring Cerebrovascular 05/10/19 Nurse Liaison Relationship Specialty Start Date End Date Ochoa Denton APRN.SUPERVISOR ASSEMBLY ROOM [address] [facility] [place] [address] PCP - General Internal Medicine 12/23/22 Christine Morrison CNP [address] [place] [address] Referring Family Medicine 05/01/18 Dheeraj Ceron MD [address] [place] [address] Referring Cerebrovascular 05/10/19 Nurse Liaison Relationship Specialty Start Date End Date Ochoa Denton APRN.SUPERVISOR ASSEMBLY ROOM [address] [place] [address] PCP - General Internal Medicine 12/23/22 Christine Morrison, MANUEL [address] [place] [address] Referring Family Medicine 05/01/18 Dheeraj Ceron MD [address] [place] [address] Referring Cerebrovascular 05/10/19 Nurse Liaison Relationship Specialty Start Date End Date Ochoa Denton APRN.SUPERVISOR ASSEMBLY ROOM [address] [facility] [place] [address] PCP - General Internal Medicine 12/23/22 Christine Morrison CNP [address] [place] [address] Referring Family Medicine 05/01/18 Dheeraj Ceron MD [address] [place] [address] Referring Cerebrovascular 05/10/19 Nurse Liaison Relationship Specialty Start Date End Date Ochoa Denton APRN.SUPERVISOR ASSEMBLY ROOM [address] [facility] [place] [address] PCP - General Internal Medicine 12/23/22 Christine Morrison CNP [address] [place] [address] Referring Family Medicine 05/01/18 Dheeraj Ceron MD [address] [place] [address] Referring Cerebrovascular 05/10/19 Nurse Liaison Relationship Specialty Start Date End Date Ochoa Denton GENERATION MANAGER.SUPERVISOR ASSEMBLY ROOM [address] [facility] [place] [address] PCP - General Internal Medicine 12/23/22 Christine Morrison, MANUEL [address] [place] [address] Referring Family Medicine 05/01/18 Dheeraj Ceron MD [address] [place] [address] Referring Cerebrovascular 05/10/19 Nurse Liaison Relationship Specialty Start Date End Date Ochoa Denton APRN.SUPERVISOR ASSEMBLY ROOM [address] [facility] [place] [address] PCP - General Internal Medicine 12/23/22 Christine Morrison CNP [address] [place] [address] Referring Family Medicine 05/01/18 Dheeraj Ceron MD [address] [place] [address] Referring Cerebrovascular 05/10/19 Nurse Liaison Relationship Specialty Start Date End Date Ochoa Denton APRN.SUPERVISOR ASSEMBLY ROOM [address] [facility] [place] [address] PCP - General Internal Medicine 12/23/22 Christine Morrison CNP [address] [place] [address] Referring Family Medicine 05/01/18 Dheeraj Ceron MD [address] [place], [place] [address] [phone] Referring Cerebrovascular 05/10/19 FOR RECORDS PERTAINING TO PATIENTS WHO ARE OR HAVE BEEN ENROLLED IN A CHEMICAL DEPENDENCY/SUBSTANCEABUSE PROGRAM, SOME INFORMATION MAY BE OMITTED. This clinical summary was aggregated from multiple sources. Caution should be exercised in using it in the provision of clinical care. This summary normalizes information from multiple sources, and as a consequence, information in this document may materially change the coding, format and clinical context of patient data. In addition, data may be omitted in some cases. CLINICAL DECISIONS SHOULD BE BASED ON THE PRIMARY CLINICAL RECORDS. [facility]. provides no warranty or guarantee of the accuracy or completeness of information in this document.
--- NOTE | 2023-12-23 15:16 | EDS_ITS ---
HPI History of Present Illness Chief Complaint: Back Informant: patient Narrative Narrative: Patient has a history of chronic back pain for years, she states she has been trying to avoid surgery but has not scheduled for 1.5 weeks from now for microdiscectomy and fusion according to what the patient is suggesting. She states for the past 3 days, her usual left low back pain and radiation into her left thigh with numbness there has been exacerbated for no specific reason. This has happened many times in the past. She uses nonnarcotic therapies at home, and states today she just cannot tolerate the pain anymore because it is so severe and uncomfortable. She does not have any bowel or bladder dysfunction. She is able to walk and denies any weakness in her leg. She is able to sit down to have a bowel movement but bearing down makes her back hurt worse, she was able to have a bowel movement today without difficulty otherwise. She states the pain was so bad that she vomited once and still feels a little nauseated. Prior similar symptoms: Yes and With Prior Back Pain [facility] Medical History (Updated 12/23/23 @ 15:[address] Jeremiah Ga MD) Abnormal EKG Acute exacerbation of chronic low back pain Anxiety Anxiety and depression Arthritis Asthma Back pain Back pain Bipolar disorder Carpal tunnel syndrome Chronic back pain Chronic headaches Chronic radicular lumbar pain Concussion Cough Diabetes Easy bruising Encounter for screening for malignant neoplasm of lung in current smoker with 30 pack year history or greater Essential hypertension Excessive bleeding Fall Flu vaccine need GERD (gastroesophageal reflux disease) Grief Head injury High cholesterol Hx of emotional problems Hyperlipidemia IBS (irritable bowel syndrome) Marijuana use Muscle spasm Neuropathy Panic attack Post concussion syndrome Restless legs Seasonal allergies Type 2 diabetes mellitus Urinary incontinence Vision problems Wears glasses Home Medications alprazolam 2 mg tablet 2 mg PO BID PRN Anxiety 03/24/19 [History Last Taken 08/22/20 04:30 2 MG] nebulizers (Altera Nebulizer System) #1 ea 09/06/20 [Rx Last Taken Unknown] fluticasone propionate 50 mcg/actuation nasal spray,suspension See Rx Instructions .Route PRN PRN Nasal Congestion #15.8 mL 11/16/21 [Rx Last Taken Unknown] blood-glucose meter ([employer] Verio Flex Meter) #1 ea 11/27/21 [Rx Last Taken Unknown] blood sugar diagnostic (Blood Glucose Test strips) #50 ea 11/28/21 [Rx Last Taken Unknown] blood-glucose meter #1 ea 11/28/21 [Rx Last Taken Unknown] lancets 32 gauge #100 ea 11/28/21 [Rx Last Taken Unknown] lamotrigine 200 mg tablet 200 mg PO BID BIPOLAR 03/12/22 [History Last Taken Unknown] paroxetine HCl 30 mg tablet 30 mg PO DAILY BIPOLAR 05/08/22 [History Last Taken Unknown] ipratropium 0.5 mg-albuterol 3 mg (2.5 mg base)/3 mL nebulization soln 3 ml inhalation Q8H PRN shortness of breath or wheezing #90 mL 07/22/22 [Rx Last Ta valeria Unknown] blood sugar diagnostic (OneTouch Verio test strips) #100 ea 08/28/22 [Rx Last Taken Unknown] ondansetron 4 mg disintegrating tablet 4 mg PO Q8H PRN nausea and vomiting #30 tabs 09/27/22 [Rx Last Taken Unknown] budesonide-formoterol HFA 160 mcg-4.5 mcg/actuation aerosol inhaler (Symbicort) 2 puff inhalation BID ASTHMA #10.2 grams 11/04/22 [Rx Last Taken Unknown] Ventolin HFA 90 mcg/actuation aerosol inhaler (albuterol sulfate) 2 puff inhalation Q6H PRN shortness of breath or wheezing #8 grams 12/09/22 [Rx Last Taken Unknown] empagliflozin 25 mg tablet (Jardiance) 25 mg PO QAM DM #30 tabs 08/25/23 [Rx Last Taken Unknown] acetaminophen 500 mg capsule 500 mg PO Q6H PRN pain 12/22/23 [History Last Taken Unknown] aripiprazole 2 mg tablet 2 mg PO DAILY BIPOLAR 12/22/23 [History Last Taken Unknown] lisinopril 20 mg tablet 20 mg PO DAILY HTN 12/22/23 [History Last Taken Unknown] omeprazole 40 mg capsule,delayed release 20 mg PO DAILY GERD 12/22/23 [History Last Taken Unknown] rosuvastatin 10 mg tablet 10 mg PO QHS HLD 12/22/23 [History Last Taken Unknown] Allergy/AdvReac Type Severity Reaction Status Date / Time red dye Allergy Severe swelling Verified 12/23/23 12:38 carbidopa Allergy Unknown Verified 12/23/23 12:38 gabapentin Allergy Unknown Verified 12/23/23 12:38 latex Allergy Rash Verified 12/22/23 09:05 quetiapine fumarate Allergy Other Verified 12/23/23 12:38 [From Seroquel] topiramate [From Topamax] Allergy Hives Verified 12/23/23 12:38 tramadol HCl [From Ultram] Allergy Other Verified 12/23/23 12:38 amitriptyline AdvReac Vomiting Verified 12/23/23 12:38 aspirin AdvReac Upset Verified 12/23/23 12:38 Stomach cyclobenzaprine HCl AdvReac Upset Verified 12/23/23 12:38 [From Flexeril] Stomach etodolac [Etodolac] AdvReac Vomiting Verified 12/23/23 12:38 hydrocodone bitartrate AdvReac Vomiting Verified 12/23/23 12:38 [From Vicodin] metformin AdvReac Diarrhea Verified 12/23/23 12:38 metoclopramide [From Reglan] AdvReac Other Verified 12/23/23 12:38 naproxen [From Naprosyn] AdvReac Upset Verified 12/23/23 12:38 Stomach propoxyphene napsylate AdvReac Vomiting Verified 12/23/23 12:38 [From Darvocet-N 100] Family History Mother Malignant hyperthermia due to anesthesia Angina pectoris Arthritis Bowel disease Myocardial infarction Heart disease Hypertension High cholesterol CVA (cerebral vascular accident) Father Asthma Arthritis Myocardial infarction Heart disease High cholesterol Hypertension CVA (cerebral vascular accident) Leukemia Diabetes Grandmother Lung cancer Grandfather Diabetes Grandmother Diabetes Surgical History History of History of cholecystectomy History of colonoscopy History of foot surgery History of nasal polypectomy History of partial hysterectomy History of rectal surgery History of total hysterectomy S/P knee surgery Social History household members: none Smoking Status: Current every day smoker tobacco type: cigarettes Tobacco: How many years used: 46 Electronic Cigarette Use: not used how long ago did patient quit smokin+ pack year smoking history (1.5-2 ppd x 32 years, 3 ppd x 14 years). second hand exposure: Yes quit status: considering quitting counseling given: provider counseling alcohol intake: never substance use type: does not use what type of physical activity do you participate in: walking and bicycling ROS ROS ED Constitutional Constitutional ED: Denies chills or fever(s) Gastrointestinal Gastrointestinal: Reports nausea and vomiting; Denies abdominal pain, constipation or fecal incontinence Genitourinary Genitourinary ED: Reports other Details: no urinary retention ; Denies abdominal discomfort or urinary incontinence Musculoskeletal Musculoskeletal: Reports as per HPI and back pain; Denies neck pain Integumentary Denies rash or wounds Neurologic Neurologic: Reports paresthesias LLE; Denies headache(s) or weakness EXAM Physical Exam Const Vital Signs: 12/23/23 12:39 Temperature 96.8 F L Temperature Source Temporal Pulse Rate 103 H Respiratory Rate 16 Pulse Ox 97 Oxygen Delivery Method Room Air Positive well nourished and well developed General Appearance ED: well developed and NAD HEENT Negative for trauma or tenderness Eyes PERRL and EOMs intact bilaterally Neck full ROM and supple GI normal to inspection, nondistended, normoactive bowel sounds, soft to palpation and non-tender Back/Spine normal to inspection Lumbar Spine / Lower Back: ROM limited, paraspinal muscle tenderness left (SIJ area only; nml inspection) and straight leg raise negative bilaterally; Negative for lumbar spinal tenderness Extremity normal to inspection, full ROM and no pedal edema Neuro oriented x3 and no sensory deficits noted Sensorium / Orientation: alert Motor Exam: strength 5/5 throughout and clonus absent Deep Tendon Reflexes: Rt Patellar (L4): 1+, Lt Patellar (L4): 1+, Rt Ankle (S1): 1+ and Lt Ankle (S1): 1+ Deep Tendon Reflexes Back: Rt Patellar (L4): 1+, Lt Patellar (L4): 1+, Rt Ankle (S1): 1+ and Lt Ankle (S1): 1+ Plantar Reflex: Downgoing: bilateral Psych mental status grossly normal and thought process normal Psych Narrative: Anxious and tearful due to pain, but normal thought processes. Skin no rashes or lesions noted and no wounds MDM MDM MDM Narrative Medical decision making narrative: Patient asking for some relief here and not for a prescription for narcotics. I think what she is asking is reasonable. She has been here many times in the past, in similar scenarios. She does not have any signs of cauda equina sy ndrome. She is hyporeflexive but it is symmetric, she states when her spine surgeon checked her reflexes he told her the same thing. She was given injections of morphine, Toradol which she has tolerated in the past, and they helped her pain here and she was ready to go home and has a ride. Discharge Plan Triage Chief Complaint: Back ED Provider: Jeremiah Ga Dx/Rx/DC Orders Clinical Impression: Acute exacerbation of chronic low back pain Instructions: ED Back Pain (Acute or Chronic) Prescriptions: No Action lamotrigine 200 mg tablet 200 mg PO BID Patient Comments: take 1 tablet by mouth twice a day paroxetine HCl 30 mg tablet 30 mg PO DAILY Patient Comments: take 2 tablets by mouth once daily alprazolam 2 MG tablet 2 mg PO BID PRN (Reason: Anxiety) lisinopril 20 mg tablet 20 mg PO DAILY Patient Comments: take 1 tablet by mouth once daily aripiprazole 2 mg tablet 2 mg PO DAILY Patient Comments: take 1 tablet by mouth once daily acetaminophen 500 mg capsule 500 mg PO Q6H PRN (Reason: pain) omeprazole 40 mg capsule,delayed release(DR/EC) 20 mg PO DAILY rosuvastatin 10 mg tablet 10 mg PO QHS (DME) Altera Nebulizer System [facility] [place] See Rx Instructions .ROUTE .MEDSUPPLY Qty: 1 3RF Rx Instructions: nebulizer and supplies fluticasone propionate 50 mcg/actuation spray,suspension See Rx Instructions .Route PRN PRN (Reason: Nasal Congestion) Qty: 15.8 3RF Rx Instructions: USE 2 SPRAYS IN EACH NOSTRIL ONCE DAILY (DME) blood-glucose meter [OneTouch Verio Flex meter] [facility] [place] See Rx Instructions .ROUTE .MEDSUPPLY Qty: 1 0RF Rx Instructions: As directed - Check blood sugar daily (DME) Blood Glucose Test Strip See Rx Instructions .ROUTE .MEDSUPPLY Qty: 50 3RF Rx Instructions: use to monitor blood sugar daily for type 2 DM (DME) blood-glucose meter [facility] [place] See Rx Instructions .ROUTE .MEDSUPPLY Qty: 1 0RF Rx Instructions: use to monitor blood sugar daily for type 2 DM (DME) lancets 32 gauge [facility] [place] See Rx Instructions .ROUTE .MEDSUPPLY Qty: 100 3RF Rx Instructions: use to check blood sugar for type 2 DM ipratropium-albuterol 0.5 mg-3 mg(2.5 mg base)/3 mL solution for nebulization 3 ml INHALATION Q8H PRN (Reason: shortness of breath or wheezing) Qty: 90 3RF (DME) OneTouch Verio test strips Strip See Rx Instructions .ROUTE .MEDSUPPLY Qty: 100 3RF Rx Instructions: Check blood sugar daily ondansetron 4 mg tablet,disintegrating 4 mg PO Q8H PRN (Reason: nausea and vomiting) Qty: 30 3RF budesonide-formoterol [Symbicort] 160-4.5 mcg/actuation HFA aerosol inhaler 2 puff INHALATION BID Qty: 10.2 3RF albuterol sulfate [Ventolin HFA] 90 mcg/actuation HFA aerosol inhaler 2 puff INHALATION Q6H PRN (Reason: shortness of breath or wheezing) Qty: 8 3RF Jardiance 25 mg tablet 25 mg PO QAM Qty: 30 0RF Primary Care Provider: Coral Monae NP Referrals: Doctor, [facility] [Other] (when able) Coral Monae NP, [employer] [Primary Care Provider] - Disposition Disposition: Home, Self Care
[2023-12-23 15:22] VITALS: BP 141/90; PULSE 96; RESP 16; O2SAT 98
== END 2023-12-23 15:23 | disposition home or self-care (01) ==
PROVIDERS: Emergency Provider Emergency Medicine; PCP Internal Medicine; Visit Provider Emergency Medicine
DX: M54.50 Low back pain, unspecified (principal); E11.9 Type 2 diabetes mellitus without complications; F17.210 Nicotine dependence, cigarettes, uncomplicated; R11.10 Vomiting, unspecified; G89.29 Other chronic pain; J45.909 Unspecified asthma, uncomplicated; E78.00 Pure hypercholesterolemia, unspecified; I10 Essential (primary) hypertension; Z79.899 Other long term (current) drug therapy; R20.2 Paresthesia of skin
CPT/HCPCS: 96372; 99282

== ENCOUNTER 2024-01-05 14:27 | Observation (INO) | payer MEDICAID, SELFPAY ==
[2023-12-26 15:15] LABS: AST(SGOT) 12 U/L (15-37); Alanine Aminotransfer ALT/SGPT 26 U/L (13-56); Albumin, Serum 3.6 g/dL (3.2-5.0); Alkaline Phosphatase 129 U/L (45-117); Bilirubin, Direct 0.05 mg/dL (0.00-0.30); Globulin 3.5 g/dL (2.2-4.2); Protein, Total 7.1 g/dL (6.4-8.2)
[2023-12-26 15:19] LABS: Magnesium 2.2 mg/dL (1.6-2.6)
[2023-12-26 15:26] LABS: International Normalized Ratio 0.9; Partial Thromboplast Time 29.7 Seconds (24.1-36.2); Prothrombin Time (Protime)PT. 12.2 SECONDS (11.7-14.9)
[2023-12-26 16:12] LABS: Hemoglobin A1c 7.4 % (3.8-5.6)
[2023-12-26 16:27] LABS: HIV - WCH Non-Reactive (Nonreactive); Hepatitis B Surface Antibody Non-Reactive; Hepatitis C Antibody Non-Reactive (Nonreactive)
[2023-12-28 08:08] LABS: Hepatitis A AB, Total Negative (Negative)
[2024-01-05] VITALS (12 sets, daily range): BP systolic 106–164; BP diastolic 71–101; PULSE 66–118; RESP 12–18; TEMP 36.4–37.3; O2SAT 90–97; BMI 25.4; BMI 25.2
--- OUTSIDE RECORDS SUMMARY | 2024-01-05 07:18 | XMS RPT_ITS | CCD ---
Author Name Unknown Address [address] [place] [address] Organization [facility] Care Team Providers Care Master Tax Advisor Name Role Phone Katerine Rocha LPN Unavailable Unavailab Katerine Mcginnis LPN Unavailable Unavailab GILL Cartwright MD Primary Care Physician [phone] Vitalyy Christine JACKSON Unavailable Dheeraj Ceron MD Unavailable Gill Rodriguez MD Primary Care Provider [phone] Corrie FARMWORKER GRAIN.TALENT MANAGEMENT SPECIALIST, Ochoa Primary Care Provider [phone] CORRIE, OCHOA Primary Care Unavailable CORRIE, OCHOA [...] OCHOA Referring Unavailable CORRIE, OCHOA Attending Unavailable CRORIE, OCHOA Primary Care Unavailable CORRIE, OCHOA Primary [...] Attending Unavailable CORRIE, OCHOA Primary Care Unavailable Tamiko TALENT MANAGEMENT SPECIALISTChristine Unavailable Unavailable Allergies Allergy Classification Reported Allergen(s) Allergy Type Date of Onset Reaction(s) Facility (2 sources) [facility] drug allergy 7 [facility] Work Phone: (20 sources) Acetaminophen / HYDROcodone; Translations: [acetaminophen-hy drocodone] Drug Allergy 7 Nausea and vomiting (disorder), Vomiting, GI Upset [facility] (1 source) Acetaminophen / oxyCODONE; Translations: [acetaminophen-ox ycodone] Drug Allergy Nausea and vomiting (disorder) [facility] (20 sources) gabapentin; Translations: [gabapentin] Drug Allergy 8 Hives, Unknown [facility] (20 sources) Ketorolac; Translations: [ketorolac] Drug Allergy 7 Unknown, Intolerance, Other: See Comments [facility] (20 sources) Metoclopramide; Translations: [metoclopramide] Drug Allergy 9 Other: See Comments, Hives [facility] (20 sources) Morphine; Translations: [morphine] Drug Allergy 6 Mental Status Change [facility] (1 source) Prochlorperazine; Translations: [prochlorperazine ] Drug Allergy [facility] (1 source) traMADol; Translations: [tramadol] Drug Allergy [facility] (20 sources) Albuterol; Translations: [ALBUTEROL SULFATE] Drug Allergy 2 Other: See Comments [facility] Work Phone: (20 sources) Amitriptyline; Translations: [AMITRIPTYLINE] Drug Allergy 8 GI Upset, Vomiting [facility] Work Phone: (20 sources) Carbidopa / Levodopa; Translations: [CARBIDOPA-LEVODO PA] Drug Allergy 9 [facility] Work Phone: (20 sources) Codeine; Translations: [CODEINE] Drug Allergy 5 GI Upset [facility] Work Phone: (20 sources) cyclobenzaprine; Translations: [CYCLOBENZAPRINE HCL] Drug Allergy 3 Other: See Comments [facility] Work Phone: [phone] (20 sources) Etodolac; Translations: [ETODOLAC] Drug Allergy 8 GI Upset, Other: See Comments [facility] Work Phone: [phone] (20 sources) Latex; Translations: [LATEX] Propensity to adverse reactions 9 Rash [facility] (20 sources) Naproxen; Translations: [NAPROXEN] Drug Allergy 1 GI Upset [facility] (20 sources) QUEtiapine; Translations: [QUETIAPINE FUMARATE] Drug Allergy 7 [facility] Work Phone: (20 sources) Salicylate product; Translations: [SALICYLATES] Propensity to adverse reactions 5 GI Upset [facility] Work Phone: [phone] (20 sources) traMADol; Translations: [TRAMADOL HCL] Drug Allergy 7 Mental Status Change [facility] (20 sources) Propoxyphene N-Acetaminophen; Translations: [PROPOXYPHENE N-ACETAMINOPHEN] Propensity to adverse reactions 8 GI Upset [facility] Work Phone: [phone] (20 sources) Contrast media; Translations: [RED DYE] Drug Allergy 0 Swelling [facility] Work Phone: [phone] (20 sources) metFORMIN; Translations: [METFORMIN] Drug Allergy 9 Diarrhea [facility] Work Phone: (20 sources) Propoxyphene; Translations: [PROPOXYPHENE] Drug Allergy 7 Vomiting [facility] Work Phone: (20 sources) topiramate; Translations: [TOPIRAMATE] Drug Allergy 8 Hives [facility] Work Phone: (20 sources) Aspirin; Translations: [ASPIRIN] Drug Allergy 7 GI Upset [facility] Work Phone: (1 source) Acetaminophen / HYDROcodone; Translations: [HYDROCODONE-ACET AMINOPHEN] Drug Allergy 7 [facility] Medications Current Medications Medication Drug Class(es) Dates Sig (Normalized) Sig (Original) clindamycin 20 mg/ml vaginal cream (3 sources) Lincosamide Antibacterial Start: 02-04-2023 End: 02-11-2023 clindamycin phosphate 2 % vaginal cream Use 1 Applicatorful vaginally daily at bedtime for 7 days. 40 g 0 02/04/2023 02/11/2023 Active Completed/Discontinued Medications Medication Drug Class(es) Dates Sig (Normalized) Sig (Original) [id number] 200 actuat albuterol 0.09 mg/actuat metered dose inhaler (20 sources) beta2-Adrenergic Agonist Start: 12-08-2023 take 2 puff(s) by mouth every four hours for wheezing VENTOLIN HFA 90 mcg/actuation inhaler inhale 2 puffs by mouth and INTO THE LUNGS every 4 hours if needed for wheezing or shortness of breath 18 g 2 12/08/2023 Active Problems Active Problems Problem Classification Problem [...] dependence, unspecified, uncomplicated] Onset: 7 06-24-2017 Chronic Substance-related disorders (20 sources) Tobacco user; Translations: [...] diagnostic imaging of breast] Onset: 01-14-2023 Episodic Spondylosis; intervertebral disc disorders; other back problems (20 sources) Chronic low back pain; Translations: [Lumbago with sciatica, unspecified side] Onset: 12-23-2022 Episodic Results Test Name Value Interpretation Reference Range Facil ity Vital Signs Date Time Vital Sign Value Performing Clinician Facility 10-31-2023 14:14-0500 Body weight 67.13 kg Ochoa Corrie FARMWORKER GRAIN.TALENT MANAGEMENT SPECIALIST Work Phone: [facility] 10-31-2023 14:14-0500 Diastolic blood pressure 78 mm[Hg] Ochoa Corrie FARMWORKER GRAIN.TALENT MANAGEMENT SPECIALIST Work Phone: [facility] 10-31-2023 14:14-0500 Heart rate 100 /min Ochoa Corrie FARMWORKER GRAIN.TALENT MANAGEMENT SPECIALIST Work Phone: [facility] 10-31-2023 14:14-0500 SaO2% (BldA) [Mass fraction] 96 % Ochoa Corrie FARMWORKER GRAIN.TALENT MANAGEMENT SPECIALIST Work Phone: [facility] 10-31-2023 14:14-0500 Systolic blood pressure 100 mm[Hg] Ochoa Corrie FARMWORKER GRAIN.TALENT MANAGEMENT SPECIALIST Work Phone: [facility] 10-03-2023 13:45-0400 Body weight 65.77 kg Ochoa Corrie FARMWORKER GRAIN.TALENT MANAGEMENT SPECIALIST Work Phone: [facility] 10-03-2023 13:45-0400 Diastolic blood pressure 80 mm[Hg] Ochoa Corrie FARMWORKER GRAIN.TALENT MANAGEMENT SPECIALIST Work Phone: [facility] 10-03-2023 13:45-0400 Heart rate 96 /min Ochoa Corrie FARMWORKER GRAIN.TALENT MANAGEMENT SPECIALIST Work Phone: [facility] 10-03-2023 13:45-0400 SaO2% (BldA) [Mass fraction] 96 % Ochoa Corrie FARMWORKER GRAIN.TALENT MANAGEMENT SPECIALIST Work Phone: [facility] 10-03-2023 13:45-0400 Systolic blood pressure 104 mm[Hg] Ochoa Corrie FARMWORKER GRAIN.TALENT MANAGEMENT SPECIALIST Work Phone: [facility] 08-05-2023 14:02-0400 Body temperature 97.9 [degF] Athy PA-C Work Phone: [facility] 08-05-2023 14:02-0400 Body weight 67.13 kg Athy PA-C Work Phone: [facility] 08-05-2023 14:02-0400 Diastolic blood pressure 80 mm[Hg] Athy PA-C Work Phone: [facility] 08-05-2023 14:02-0400 Heart rate 98 /min Athy PA-C Work Phone: [facility] 08-05-2023 14:02-0400 Respiratory rate 16 /min Athy PA-C Work Phone: [facility] 08-05-2023 14:02-0400 SaO2% (BldA) [Mass fraction] 94 % Athy PA-C Work Phone: [facility] 08-05-2023 14:02-0400 Systolic blood pressure 124 mm[Hg] Athy PA-C Work Phone: [facility] 07-17-2023 14:19-0400 Body temperature 98.4 [degF] Daniel Armand FARMWORKER GRAIN.TALENT MANAGEMENT SPECIALIST Work Phone: [facility] 07-17-2023 14:19-0400 Body weight 64.05 kg Daniel Armand FARMWORKER GRAIN.TALENT MANAGEMENT SPECIALIST Work Phone: [facility] 07-17-2023 14:19-0400 Diastolic blood pressure 72 mm[Hg] Daniel Armand FARMWORKER GRAIN.TALENT MANAGEMENT SPECIALIST Work Phone: [facility] 07-17-2023 14:19-0400 Heart rate 98 /min Daniel Armand FARMWORKER GRAIN.TALENT MANAGEMENT SPECIALIST Work Phone: [facility] 07-17-2023 14:19-0400 Respiratory rate 21 /min Daniel Armand FARMWORKER GRAIN.TALENT MANAGEMENT SPECIALIST Work Phone: [facility] 07-17-2023 14:19-0400 SaO2% (BldA) [Mass fraction] 95 % Daniel Armand FARMWORKER GRAIN.TALENT MANAGEMENT SPECIALIST Work Phone: [facility] 07-17-2023 14:19-0400 Systolic blood pressure 102 mm[Hg] Daniel Acuna APRN.TALENT MANAGEMENT SPECIALIST Work Phone: [facility] 04-05-2023 08:07-0400 Body temperature 97.2 [degF] Krislyn Aberegg PA Work Phone: [facility] 04-05-2023 08:07-0400 Body weight 69.85 kg Krislyn Aberegg PA Work Phone: [facility] 04-05-2023 08:07-0400 Diastolic blood pressure 78 mm[Hg] Krislyn Aberegg PA Work Phone: [facility] 04-05-2023 08:07-0400 Heart rate 101 /min Krislyn Aberegg PA Work Phone: [facility] 04-05-2023 08:07-0400 Respiratory rate 18 /min Krislyn Aberegg PA Work Phone: [facility] 04-05-2023 08:07-0400 SaO2% (BldA) [Mass fraction] 99 % Krislyn Aberegg PA Work Phone: [facility] 04-05-2023 08:07-0400 Systolic blood pressure 112 mm[Hg] Krislyn Aberegg PA Work Phone: [facility] 03-28-2023 10:59-0400 Body weight 64.41 kg Ochoa Corrie FARMWORKER GRAIN.TALENT MANAGEMENT SPECIALIST Work Phone: [facility] 03-28-2023 10:59-0400 Diastolic blood pressure 80 mm[Hg] Ochoa Corrie FARMWORKER GRAIN.TALENT MANAGEMENT SPECIALIST Work Phone: [facility] 03-28-2023 10:59-0400 Heart rate 101 /min Ochoa Corrie FARMWORKER GRAIN.TALENT MANAGEMENT SPECIALIST Work Phone: [facility] 03-28-2023 10:59-0400 SaO2% (BldA) [Mass fraction] 97 % Ochoa Corrie FARMWORKER GRAIN.TALENT MANAGEMENT SPECIALIST Work Phone: [facility] 03-28-2023 10:59-0400 Systolic blood pressure 110 mm[Hg] Ochoa Corrie FARMWORKER GRAIN.TALENT MANAGEMENT SPECIALIST Work Phone: [facility] 02-07-2023 10:22-0500 Body temperature 96.8 [degF] Krislyn Aberegg PA Work Phone: [facility] 02-07-2023 10:22-0500 Body weight 67.5 kg Krislyn Aberegg PA Work Phone: [facility] 02-07-2023 10:22-0500 Diastolic blood pressure 84 mm[Hg] Krislyn Aberegg PA Work Phone: [facility] 02-07-2023 10:22-0500 Heart rate 96 /min Krislyn Aberegg PA Work Phone: [facility] 02-07-2023 10:22-0500 Respiratory rate 18 /min Krislyn Aberegg PA Work Phone: [facility] 02-07-2023 10:22-0500 SaO2% (BldA) [Mass fraction] 98 % Krislyn Aberegg PA Work Phone: [facility] 02-07-2023 10:22-0500 Systolic blood pressure 122 mm[Hg] Krislyn Aberegg PA Work Phone: [facility] 01-23-2023 09:58-0500 Body weight 61.69 kg Amna Brittnee FARMWORKER GRAIN.TALENT MANAGEMENT SPECIALIST Work Phone: [facility] 01-23-2023 09:58-0500 Diastolic blood pressure 78 mm[Hg] Amna Brittnee FARMWORKER GRAIN.TALENT MANAGEMENT SPECIALIST Work Phone: [facility] 01-23-2023 09:58-0500 Systolic blood pressure 132 mm[Hg] Amna [place] FARMWORKER GRAIN.TALENT MANAGEMENT SPECIALIST Work Phone: [facility] 01-21-2023 13:09-0500 Body temperature 97.3 [degF] Ochoa Corrie FARMWORKER GRAIN.TALENT MANAGEMENT SPECIALIST Work Phone: [facility] 01-21-2023 13:09-0500 Body weight 63.05 kg Ochoa Corrie FARMWORKER GRAIN.TALENT MANAGEMENT SPECIALIST Work Phone: [facility] 01-21-2023 13:09-0500 Diastolic blood pressure 68 mm[Hg] Ochoa Corrie FARMWORKER GRAIN.TALENT MANAGEMENT SPECIALIST Work Phone: [facility] 01-21-2023 13:09-0500 Heart rate 84 /min Ochoa Corrie FARMWORKER GRAIN.TALENT MANAGEMENT SPECIALIST Work Phone: [facility] 01-21-2023 13:09-0500 Systolic blood pressure 100 mm[Hg] Ochoa Corrie FARMWORKER GRAIN.TALENT MANAGEMENT SPECIALIST Work Phone: [facility] 12-23-2022 09:12-0500 Body height 161.3 cm Ochoa Corrie FARMWORKER GRAIN.TALENT MANAGEMENT SPECIALIST Work Phone: [facility] 12-23-2022 09:12-0500 Body weight 65.32 kg Ochoa Corrie FARMWORKER GRAIN.TALENT MANAGEMENT SPECIALIST Work Phone: [facility] 12-23-2022 09:12-0500 Diastolic blood pressure 70 mm[Hg] Ochoa Corrie FARMWORKER GRAIN.TALENT MANAGEMENT SPECIALIST Work Phone: [facility] 12-23-2022 09:12-0500 Heart rate 95 /min Ochoa Corrie FARMWORKER GRAIN.TALENT MANAGEMENT SPECIALIST Work Phone: [facility] 12-23-2022 09:12-0500 SaO2% (BldA) [Mass fraction] 91 % Ochoa Corrie FARMWORKER GRAIN.TALENT MANAGEMENT SPECIALIST Work Phone: [facility] 12-23-2022 09:12-0500 Systolic blood pressure 100 mm[Hg] Ochoa Corrie FARMWORKER GRAIN.TALENT MANAGEMENT SPECIALIST Work Phone: [facility] 12-16-2022 08:49-0500 Body weight 67.13 kg Amna Brittnee FARMWORKER GRAIN.TALENT MANAGEMENT SPECIALIST Work Phone: [facility] 12-16-2022 08:49-0500 Diastolic blood pressure 78 mm[Hg] Amna [place] FARMWORKER GRAIN.TALENT MANAGEMENT SPECIALIST Work Phone: [facility] 12-16-2022 08:49-0500 Heart rate 8 /min Amna Brittnee FARMWORKER GRAIN.TALENT MANAGEMENT SPECIALIST Work Phone: [facility] 12-16-2022 08:49-0500 Respiratory rate 16 /min Amna Brittnee FARMWORKER GRAIN.TALENT MANAGEMENT SPECIALIST Work Phone: [facility] 12-16-2022 08:49-0500 SaO2% (BldA) [Mass fraction] 96 % Amna Brittnee FARMWORKER GRAIN.TALENT MANAGEMENT SPECIALIST Work Phone: [facility] 12-16-2022 08:49-0500 Systolic blood pressure 134 mm[Hg] Amna Brittnee FARMWORKER GRAIN.TALENT MANAGEMENT SPECIALIST Work Phone: [facility] 11-28-2022 11:06-0500 Body weight 63.96 kg Amna Brittnee FARMWORKER GRAIN.TALENT MANAGEMENT SPECIALIST Work Phone: [facility] 11-28-2022 11:06-0500 Diastolic blood pressure 60 mm[Hg] Mana Brittnee FARMWORKER GRAIN.TALENT MANAGEMENT SPECIALIST Work Phone: [facility] 11-28-2022 11:06-0500 Systolic blood pressure 100 mm[Hg] Amna Brittnee FARMWORKER GRAIN.TALENT MANAGEMENT SPECIALIST Work Phone: [facility] 07-30-2022 18:36-0400 Body height 165 cm EDILBERTO MCCARTHY DO [facility] 07-30-2022 18:36-0400 Body temperature 98.06 [degF] EDILBERTO MCCARTHY DO [facility] 07-30-2022 18:36-0400 Body weight 151 kg EDILBERTO MCCARTHY DO [facility] 07-30-2022 18:36-0400 Diastolic blood pressure 93 mm[Hg] EDILBERTO MCCARTHY DO [facility] 07-30-2022 18:36-0400 Heart rate 99 /min EDILBERTO MCCARTHY DO [facility] 07-30-2022 18:36-0400 Respiratory rate 16 /min EDILBERTO MCCARTHY DO [facility] 07-30-2022 18:36-0400 Systolic blood pressure 171 mm[Hg] EDILBERTO MCCARTHY DO [facility] 06-24-2017 17:13-0400 BMI (Body Mass Index) 25.35 kg/m2 Katerine Rocha YIELD LOSS INSPECTOR [facility] Work Phone: 06-24-2017 17:13-0400 Body Temperature 98.1 [degF] Katerine Rocha YIELD LOSS INSPECTOR [facility] Work Phone: 06-24-2017 17:13-0400 BP Diastolic 74 mm[Hg] Katerine Rocha YIELD LOSS INSPECTOR [facility] Work Phone: 06-24-2017 17:13-0400 BP Systolic 114 mm[Hg] Katerine Rocha YIELD LOSS INSPECTOR [facility] Work Phone: 06-24-2017 17:13-0400 Height 163.83 cm Katerine Rocha LPN [facility] Work Phone: 06-24-2017 17:13-0400 Pulse (Heart Rate) 100 /min Katerine Rocha LPN [facility] Work Phone: 06-24-2017 17:13-0400 Respiratory Rate 13 /min Katerine Rocha LPN [facility] Work Phone: 06-24-2017 17:13-0400 Weight 68.04 kg Katerine Rocha LPN [facility] Work Phone: Encounters Encounter Date Encounter Type Care Provider Facility Start: 01-02-2024 Telephone encounter Ochoa sun APRN.TALENT MANAGEMENT SPECIALIST Work Phone: [facility] Family Medicine Procedures Date Procedure Procedure Detail Performing Clinician Start: 10-03-2023 [place] COVI D-19 VACCINE (2022- SEASON) AGE 12+ YR Ochoa Monae APRN.TALENT MANAGEMENT SPECIALIST Work Phone: Start: 08-05-2023 COVID & INFLUENZA A/ B & RSV NAAT, ROUTINE Cara Stoddard PA-C Work Phone: Start: 08-05-2023 Iadna respiratry pro be & rev trnscr 3-5 targets jerri RASMUSSENC Work Phone: Start: 08-05-2023 Sars-cov-2 detection by dna/rna Cara RASMUSSENC Work Phone: Start: 07-17-2023 Sars-cov-2 detection by dna/rna Daniel Acuna APRN.TALENT MANAGEMENT SPECIALIST Work Phone: Start: 07-17-2023 Radiologic exam ches t 2 views Daniel Acuna APRN.TALENT MANAGEMENT SPECIALIST Work Phone: Start: 04-05-2023 STREP A MOLECULAR (POC) Kacie Cadena PA Work Phone: Start: 02-07-2023 STREP A MOLECULAR (POC) Kacie Casas Abjose guadalupe PA Work Phone: Start: 01-14-2023 End: 01-14-2023 Mammography Ochoa Monae FARMWORKER GRAIN.CN P Work Phone: Start: 12-23-2022 [place] COVI D-19 BIVALENT BOOSTER VACCINE, AGE 12+ YR Ochoa Monae FARMWORKER GRAIN.TALENT MANAGEMENT SPECIALIST Work Phone: Start: 11-28-2022 BACTERIAL VAGINOSIS AMPLIFICATION Amna [place] FARMWORKER GRAIN.TALENT MANAGEMENT SPECIALIST Work Phone: Start: 11-28-2022 Iadna chlamydia trac homatis amplified probe tq Amna [place] FARMWORKER GRAIN.TALENT MANAGEMENT SPECIALIST Work Phone: Start: 10-25-2022 LDL CHOLESTEROL DIR [facility] Provider Start: 02-27-2015 Mammography Amna [facility] FARMWORKER GRAIN.TALENT MANAGEMENT SPECIALIST Work Phone: Start: 02-08-2015 Colonoscopy Amna [facility] FARMWORKER GRAIN.TALENT MANAGEMENT SPECIALIST Work Phone: section EDILBERTO GARCIA KASIA ELDER Cholecystectomy EDILBERTO VELASCO TORI DO Deviated nasal septu m (disorder) EDILBERTO MCCARTHY DO Plan of Treatment Date Care Activity Detail Author Start: 08-30-2031 Urine microalbumin profile [facility] Start: 04-26-2026 Urine microalbumin profile DTAP,TDAP,TD (2 - Td or Tdap) [facility] Start: 02-08-2025 Colonoscopy COLONOSCOPY [facility] Start: 02-08-2025 COLORECTAL CANCER SCREENING COLORECTAL CANCER SCREENING [facility] Start: 02-08-2025 Screening for malignant neoplasm of colon [facility] Start: 12-16-2024 Annual PCP Team Chronic Disease Visit Annual PCP Team Chronic Disease Visit [facility] Start: 12-16-2024 BP Controlled (<130/80) BP Controlled (<130/80) [facility] Start: 10-31-2024 Annual PCP Team Chronic Disease Visit Annual PCP Team Chronic Disease Visit [facility] Start: 10-31-2024 BP Controlled (<130/80) BP Controlled (<130/80) [facility] Start: 10-03-2024 Annual PCP Team Chronic Disease Visit Annual PCP Team Chronic Disease Visit [facility] Start: 10-02-2024 Hepatitis B surface antibody level LDL Cholesterol [facility] Start: 07-17-2024 BP CONTROLLED (<130/80) BP CONTROLLED (<130/80) [facility] Start: 07-15-2024 ANNUAL PCP TEAM CHRONIC DISEASE VISIT ANNUAL PCP TEAM CHRONIC DISEASE VISIT [facility] Start: 04-05-2024 BP CONTROLLED (<130/80) BP CONTROLLED (<130/80) [facility] Start: 04-01-2024 Hemoglobin A1c measurement HbA1C [facility] Start: 04-01-2024 Hemoglobin A1c/Hemoglobin.total in Blood HbA1C [facility] Start: 03-28-2024 ANNUAL PCP TEAM CHRONIC DISEASE VISIT ANNUAL PCP TEAM CHRONIC DISEASE VISIT [facility] Start: 02-19-2024 BP CONTROLLED (<130/80) BP CONTROLLED (<130/80) [facility] Start: 02-04-2024 BP CONTROLLED (<130/80) BP CONTROLLED (<130/80) [facility] Start: 01-23-2024 Hepatitis B surface antibody level LDL CHOLESTEROL [facility] Start: 01-21-2024 ANNUAL PCP TEAM CHRONIC DISEASE VISIT ANNUAL PCP TEAM CHRONIC DISEASE VISIT [facility] Start: 01-21-2024 BP CONTROLLED (<130/80) BP CONTROLLED (<130/80) [facility] Start: 01-14-2024 Mammography [facility] Start: 01-14-2024 Screening for malignant neoplasm of breast Mammogram Screening [facility] Start: 01-09-2024 BP CONTROLLED (<130/80) BP CONTROLLED (<130/80) [facility] Start: 01-03-2024 Hemoglobin A1c/Hemoglobin.total in Blood HBA1C [facility] Start: 12-23-2023 ANNUAL PCP TEAM CHRONIC DISEASE VISIT ANNUAL PCP TEAM CHRONIC DISEASE VISIT [facility] Start: 12-23-2023 BP CONTROLLED (<130/80) BP CONTROLLED (<130/80) [facility] Start: 12-23-2023 Hepatitis B surface antibody level LDL CHOLESTEROL [facility] Start: 11-28-2023 BP CONTROLLED (<130/80) BP CONTROLLED (<130/80) [facility] Start: 10-25-2023 Hepatitis B surface antibody level LDL CHOLESTEROL [facility] Start: 10-01-2023 End: 12-31-2023 CBC W Auto Differential panel - Blood CBC + DIFF Lab Routine Encounter for therapeutic drug monitoring Expected: 10/01/2023, Expires: 12/31/2023 [facility] Work Phone: Immunizations Immunization Date Immunization Notes Care Provider Ba baer 10-03-2023 COVID-19 vaccine, ag e 12+ yr, season ([place]) Ochoa Monae APRN.TALENT MANAGEMENT SPECIALIST Work Phone: [facility] Work Phone: 08-27-2023 influenza, injectabl e, quadrivalent, preservative free Ochoa Monae APRN.TALENT MANAGEMENT SPECIALIST Work Phone: [facility] Work Phone: 12-23-2022 COVID-19 booster vaccine, age 12+ yr, bivalent (PFIZER-BIONTECH) Ochoa Monae APRN.[facility] Work Phone: [facility] Work Phone: 12-23-2022 pneumococcal (PCV20) vaccine, 20 valent (PREVNAR 20) Ochoa Corrie FARMWORKER GRAIN.[facility] Work Phone: [facility] Work Phone: 12-23-2022 pneumococcal Conjuga te, unspecified formulation Ochoa Corrie FARMWORKER GRAIN.[facility] Work Phone: [facility] Work Phone: 09-26-2022 Influenza, injectabl e, Madin [place] Canine Kidney, quadrivalent with preservative Ochoa Corrie FARMWORKER GRAIN.[facility] Work Phone: [facility] Work Phone: 09-26-2022 influenza, injectabl e, quadrivalent, preservative free Screen Wstr [facility] Work Phone: 09-26-2022 influenza, seasonal, injectable Ochoa Corrie FARMWORKER GRAIN.[facility] Work Phone: [facility] Work Phone: 08-30-2021 tetanus toxoid, redu jordi diphtheria toxoid, and acellular pertussis vaccine, adsorbed Ochoa Corrie FARMWORKER GRAIN.[facility] Work Phone: [facility] Work Phone: 08-09-2020 Influenza, injectabl e, Madin [place] Canine Kidney, preservative free, quadrivalent Ochoa Corrie FARMWORKER GRAIN.[facility] Work Phone: [facility] Work Phone: 07-29-2019 influenza, injectabl e, quadrivalent, preservative free Ochoa Corrie FARMWORKER GRAIN.TALENT MANAGEMENT SPECIALIST Work Phone: [facility] Work Phone: 08-18-2018 influenza, injectabl e, quadrivalent, contains preservative Amna Brittnee FARMWORKER GRAIN.TALENT MANAGEMENT SPECIALIST Work Phone: [facility] [facility] 08-11-2017 influenza, injectabl e, quadrivalent, contains preservative Amna Good Hope [employer]WORKER [employer].[facility] Work Phone: [facility] 07-01-2017 influenza, injectabl e, quadrivalent, preservative free Ochoa Corrie [employer]ARMWORKER [employer].[facility] Work Phone: [facility] Work Phone: 08-15-2016 influenza, injectabl e, quadrivalent, contains preservative Amna Good Hope [employer].TALENT MANAGEMENT SPECIALIST Work Phone: [facility] Work Phone: 04-26-2016 tetanus toxoid, redu jordi diphtheria toxoid, and acellular pertussis vaccine, adsorbed Amna Good Hope [employer].[facility] Work Phone: [facility] 08-21-2015 influenza, injectabl e, quadrivalent, contains preservative Amna Brittnee [employer]WORK[employer].[facility] Work Phone: [facility] 10-17-2014 influenza, seasonal, injectable Amna Good Hope [employer].[facility] Work Phone: [facility] 03-01-2014 pneumococcal Conjuga te, unspecified formulation Ochoa Corrie [employer]WORK[employer].[facility] Work Phone: [facility] Work Phone: 03-01-2014 pneumococcal polysaccharide vaccine, 23 valent Ochoa Corrie [employer]WORK[employer].[facility] Work Phone: [facility] Work Phone: 03-01-2014 pneumococcal vaccine , unspecified formulation Ochoa Corrie [employer].[facility] Work Phone: [facility] Work Phone: 10-01-2013 influenza virus vacc ine, unspecified formulation Amna Good Hope [employer].TALENT MANAGEMENT SPECIALIST Work Phone: [facility] Work Phone: 10-01-2013 influenza, injectabl e, quadrivalent, preservative free Ochoa Corrie [employer]WORK[employer].[facility] Work Phone: [facility] Work Phone: 10-01-2013 influenza, seasonal, injectable Screen Wstr [facility] Work Phone: 10-01-2013 influenza, seasonal, injectable, preservative free Ochoa Corrie [employer].TALENT MANAGEMENT SPECIALIST Work Phone: [facility] Work Phone: 09-18-2012 influenza virus vacc ine, unspecified formulation Amna Brittnee [employer].TALENT MANAGEMENT SPECIALIST Work Phone: [facility] 09-12-2011 influenza virus vacc ine, unspecified formulation Amna Good Hope [employer]WORK[employer].TALENT MANAGEMENT SPECIALIST Work Phone: [facility] 09-07-2010 influenza virus vacc ine, unspecified formulation Amna Brittnee [employer]WORK[employer].TALENT MANAGEMENT SPECIALIST Work Phone: [facility] 06-28-2010 pneumococcal polysaccharide vaccine, 23 valent Amna Brittnee [employer]ARMWORKER [employer].TALENT MANAGEMENT SPECIALIST Work Phone: [facility] Work Phone: 10-04-2009 novel influenza-H1N1 -09, preservative-free, injectable Ochoa Corrie [employer].TALENT MANAGEMENT SPECIALIST Work Phone: [facility] Work Phone: 09-14-2009 influenza virus vacc ine, unspecified formulation Amna Brittnee [employer]ARMWORK[employer].TALENT MANAGEMENT SPECIALIST Work Phone: [facility] 10-05-2008 influenza virus vacc ine, unspecified formulation Amna Good Hope [employer]WORK[employer].TALENT MANAGEMENT SPECIALIST Work Phone: [facility] Work Phone: 10-26-2007 influenza virus vacc ine, unspecified formulation Amna Brittnee [employer]WORK[employer].TALENT MANAGEMENT SPECIALIST Work Phone: [facility] 04-11-2007 tetanus and diphther ia toxoids, adsorbed, preservative free, for adult use (2 Lf of tetanus toxoid and 2 Lf of diphtheria toxoid) Amna Good Hope [employer].TALENT MANAGEMENT SPECIALIST Work Phone: [facility] Work Phone: 08-31-1999 tetanus and diphther ia toxoids, not adsorbed, for adult use Amna Good Hope [employer]WORK[employer].TALENT MANAGEMENT SPECIALIST Work Phone: [facility] Payers Date Payer Category Payer Medicaid [id number] 2023 Medicaid [id number] 2013 Medicaid [id number] Social History Date Type Detail Facility Start: 11-28-2022 Tobacco smoking status Smokes tobacco daily (finding) [facility] Sex Assigned At Female [facility] History of tobacco use Cigarette Smoker [facility] Start: 11-28-2022 End: 04-03-2023 Cigarettes smoked current (pack per day) - Reported 1 [facility] Start: 11-28-2022 Tobacco use and exposure Smokeless tobacco non-user [facility] Start: 11-28-2022 End: 12-16-2023 Alcohol intake Current non-drinker of alcohol (finding) [facility] Start: 1965 Sex Assigned At Not on file [facility] Start: 04-03-2023 End: 04-05-2023 Tobacco use panel [facility] Adult Depression Screening Assessment 0 [facility] Medical Equipment Procedure Code Equipment Code Equipment Origin al Text Equipment Identifier Dates Start: 03-08-2019 End: 12-16-2022 Functional Status Date Assessment Result Facility 07-30-2022 Functional Status Up ad miguel [facility] Mental Status Date Assessment Result Facility 07-30-2022 Mental Status Oriented x 4 [facility] Clinical Notes 08-21-2015 to 01-02-2024 Telephone Encounter - Pattie Seals LPN - 01/02/2024 2:01 PM ESTTelephone Encounter - Sadia Laughlin APRN.CNS - 01/02/2024 12:18 PM ESTPatient InstructionsPatient InstructionsPatient Instructions Note Date & Type Note Facility 01-02-2024 Miscellaneous Notes the EKG was completed and send to Dr. Estrada's office. They will fax it to [facility] and fax a copy to this office. Seen by Ochoa Monae CNP for preop visit. Please check to see if EKG can be obtained and sent over. If not able to locate may need to be repeated. Do we know if it was done here or elsewhere? Pt called and she had EKG done last week for medical clearance and needs to be faxed to Pre admission testing FAX: [phone] Was not able to find to fax over copy. OV shows results and that it was done. Office note was faxed already. Please advise Pre admission if there is a problem. Wendy Juárez LPN documented in this encounter [facility] 12-17-2023 Note [facility] 12-16-2023 [facility] 12-10-2023 [facility] 12-09-2023 [facility] 11-29-2023 [facility] 11-14-2023 [facility] 11-07-2023 Miscellaneous Notes Call placed to patient [...] asking for any other provider recommendations. Iza Michaud, RN documented in this encounter [facility] 10-31-2023 Note [facility] 10-31-2023 Instructions Ochoa Monae APRN.MANUEL - 10/31/2023 2:30 PM EST If tolerating Advil, okay to use Can take tylenol (Acetaminophen) but do not exceed 4000 mg in 24 hours. Keep doing stretches. Keep up with ice and/or heat if helpful. 5. [facility] who [facility] covered for massage. 6. [...] a lower dose). documented in this encounter [facility] 10-31-2023 History of Present illness Narrative SUBJECTIVE [...] (FLONASE) 50 mcg/actuation nasal spray Use 1 [place] in each nostril once daily. baclofen 10 [...] Other: See Comments nausea Gabapentin Hives, Unknown [place] high [place] high Hydrocodone-Acetami* Vomiting, GI Upset Other reaction(s): Vomiting Ketorolac Unknown, Intolerance, Other: See Comments Skin crawling Metformin Diarrhea Morphine Mental Status Change Naproxen GI Upset Other reaction(s): GI Upset Proair Hfa [Albuter* Other: See Comments works but makes her throat feel tight, doesn't make breathing worse Propoxyphene Vomiting Propoxyphene N-Acet* GI Upset Other reaction(s): GI Upset Seroquel [Quetiapin* [place] drunk at high doses Topiramate Hives Ultram [...] pain. AC Fortune documented in this encounter [facility] 10-27-2023 Miscellaneous Notes Patient returns call and [...] to injections. She has appt scheduled with DOG SITTER for 10/31/2023 and she will keep that has a busy week next week. Patient asking if any other recommendations? She was asking about massage? Advised may not be covered by insurance and may not help at all. Please advise documented in this encounter [facility] 10-27-2023 Miscellaneous Notes Patient has been identified [...] Vero Cross LPN. documented in this encounter [facility] 10-13-2023 Miscellaneous Notes Patient has been identified by name and date of : Yes, Provider Lary Monae Date 10/23/23 Patient phones for refill(s): Requested [...] Yadira Li LPN. documented in this encounter [facility] 10-06-2023 Miscellaneous Notes Pharmacy verified in [facility] Patient has been identified by name and [...] advise. Zamzam Balbuena documented in this encounter [facility] 10-03-2023 Note [facility] 10-03-2023 Instructions Ochoa Monae APRN.TALENT MANAGEMENT SPECIALIST - 10/03/2023 2:35 PM EDT For your [...] Lyrica in also. documented in this encounter [facility] 10-03-2023 History of Present illness Narrative SUBJECTIVE [...] (FLONASE) 50 mcg/actuation nasal spray Use 1 [place] in each nostril once daily. baclofen 10 [...] Other: See Comments nausea Gabapentin Hives, Unknown [place] high [place] high Hydrocodone-Acetami* Vomiting, GI Upset Other reaction(s): Vomiting Ketorolac Unknown, Intolerance, Other: See Comments Skin crawling Metformin Diarrhea Morphine Mental Status Change Naproxen GI Upset Other reaction(s): GI Upset Proair Hfa [Albuter* Other: See Comments works but makes her throat feel tight, doesn't make breathing worse Propoxyphene Vomiting Propoxyphene N-Acet* GI Upset Other reaction(s): GI Upset Seroquel [Quetiapin* [place] drunk at high doses Topiramate Hives Ultram [...] Diabetes Mellitus Type 2, Controlled, Without Complications ([facility]) - 02/14/2016 Hyperlipidemia - 02/14/2016 Hypertension Goal Bp (Blood Pressure) < 140/90 - 09/13/2015 Tobacco Use Disorder - 08/21/2015 Severe Manic Bipolar I Disorder With Psychotic Features ([facility]) Moderate Persistent Asthma - 10/15/2005 Social History [...] Abs Lymph 1.00 - 4.00 k/uL 3.70 Garfield% % 5.3 Abs Garfield <0.87 k/uL 0.47 Eosin% % 1.5 Abs [...] immunization - ICD9: V03.89, ICD10: Z23 - PFIZER-BIONTECH COVID-19 VACCINE ( SEASON) AGE 12+ YR Medical Decision Making: [...] (around 10/31/2023) for recheck on new medication.. AC Fortune documented in this encounter [facility] 10-01-2023 Miscellaneous Notes Spoke with pt and [...] are in lab. documented in this encounter [facility] 09-25-2023 Miscellaneous Notes Medication refill requested by patient. Requested Prescriptions Pending Prescriptions Disp Refills lisinopril (ZESTRIL) 20 mg tablet 90 tablet 1 Sig: Take 1 tablet by mouth once daily. Last encounter with this provider: 07/15/2023 Next appt: not scheduled. Georgie Robles RN documented in this encounter [facility] 09-11-2023 Miscellaneous Notes Patient having muscle spasms 10 x's day, lasting 20 min each time for 1 week. Starts at terarnce feet, radiates up terrance legs, up back [...] Hysterectomy 10 years ago. Protocols used: Back [id number] documented in this encounter [facility] 08-06-2023 Miscellaneous Notes Left message for patient with negative results.Bonita Dove LPN ----- Message from Kendrick Fuller MD sent at 08/06/2023 7:12 AM EDT ----- COVID-negative. documented in this encounter [facility] 08-05-2023 Note [facility] 08-05-2023 History of Present illness Narrative This note was created using Epticariter. Subjective Brandi Muhammad is a 58 year [...] No response to Levsin as of 04-08 [place] rec EGD and Colon in 05-09: H [...] 03/28/2008 Post concussive syndrome seeing neurology at [facility] Pure hypercholesterolemia Sprain of joints and ligaments [...] (FLONASE) 50 mcg/actuation nasal spray Use 1 [place] in each nostril once daily. JARDIANCE 25 [...] LAPS TOTAL HYSTERECT 250 GM/< W/RMVL TUBE/OVARY 7/29/14 TLH, LSO, only right ovary remains LIG/TRNSXJ FLP TUBE ABDL/VAG APPR UNI/BI Tubal ligation MILD JOHNNY NEUROPLASTY &/TRANSPOS MEDIAN NRV CARPAL TUNNE Carpal tunnel decomp,right NOVASURE 05/10 OOPHORECTOMY PARTIAL OR TOTAL Bilateral OOPHORECTOMY PARTIAL/TOTAL UNI/BI Right 07/2018 Benign Serous cystadenoma - [facility] Dr. Palm PAST SURGICAL HISTORY OF endometrial [...] Cara Stoddard PA-C documented in this encounter [facility] 08-05-2023 Miscellaneous Notes Medication refill requested by patient. Requested Prescriptions Pending Prescriptions Disp Refills budesonide-formoterol (SYMBICORT) 160-4.5 mcg/actuation inhaler 10.2 g 1 Last encounter with this provider: 07/15/2023 Next appt: 08/12/2023 Georgie Robles RN documented in this encounter [facility] 07-21-2023 Miscellaneous Notes RAJIV 07/15/23 NOV 08/12/23 [...] advise. Amy Ren documented in this encounter [facility] 07-18-2023 Miscellaneous Notes Patient notified.Bonita Dove LPN Please notify that covid testing negative. Continue with plan of care as discussed during visit. documented in this encounter [facility] 07-17-2023 Note [facility] 07-17-2023 Note [facility] 07-17-2023 Instructions Daniel Acuna APRN.MANUEL - 07/17/2023 3:10 PM EDT RESPIRATORY INFECTION [...] by coughs, sneezes, and direct contact, especially [id number]. A respiratory tract infection usually clears up [...] F (39 C). documented in this encounter [facility] 07-17-2023 History of Present illness Narrative Subjective [...] in 05-09: H pylori negative in 05-09 [place] noted sigmoid stricture by Colonoscopy in 05-09: [...] 03/28/2008 Post concussive syndrome seeing neurology at [facility] Pure hypercholesterolemia Sprain of joints and ligaments [...] UNI/BI Right 07/2018 Benign Serous cystadenoma - [facility] Dr. Palm PAST SURGICAL HISTORY OF endometrial [...] (FLONASE) 50 mcg/actuation nasal spray Use 1 [place] in each nostril once daily. JARDIANCE 25 [...] HENT: Head: Normocephalic and atraumatic. Mouth/Throat: Lips: [place]. Mouth: Mucous membranes are moist. Pharynx: Uvula [...] V12.69, ICD10: Z87.09 Steroids ordered Daniel Acuna APRN.TALENT MANAGEMENT SPECIALIST documented in this encounter [facility] 07-15-2023 Note [facility] 07-14-2023 Miscellaneous Notes Patient has been identified [...] Vero Cross LPN documented in this encounter [facility] 07-04-2023 Miscellaneous Notes Pt called and is notified of providers results and instructions. Pt voices understanding. Ilana Emery, TORIE Please call patient, let her know labs are back, overall stable. The hgba1c did go up slightly, it went from 6.4% to 7.3%. She should be sure to follow a diabetic diet and try to limit sweets and carbohydrates. Ochoa Monae APRN.MANUEL documented in this encounter [facility] 06-25-2023 Miscellaneous Notes PATIENT NOTIFIED OF SAME. [...] especialy her A1C. documented in this encounter [facility] 06-13-2023 Miscellaneous Notes Complete form was faxed 06/11/2023 Form received and on PCP desk for completion. Patient returns call and asks that she be called once letter is completed and sent back to [facility]. Call back number is [phone]. Iza Michaud RN Patient calling to say AE is faxing form to extend her payment due date by 30 days so she doesn't have her electricity shut off. She says she needs to keep her electricity on because she uses a nebulizer. Madalyn Chairez, RN documented in this encounter [facility] 06-05-2023 Miscellaneous Notes Patient last visit with PCP 03/28/23 Follow up appointment scheduled none- no showed 05/23 Princess Alvarez Ma documented in this encounter [facility] 05-20-2023 Miscellaneous Notes Noted, will address at appt Spoke with patient and she did go to [facility] ER on 05/15/23. Continues to have pain [...] ER for evaluation. Patient said she dislikes [facility] always tells her she is drug seeker. Advised closest [facility] would be [place] or [place]. Patient said she would have to decide what she is going to do and ask her son to take her. documented in this encounter [facility] 04-07-2023 Miscellaneous Notes Patient notified, verbalized understanding. [...] triage nurse yesterday. Pt was seen in [facility] 04/05 for URI sx. Pt was neg [...] Tri Richard LPN documented in this encounter [facility] 04-06-2023 Miscellaneous Notes Patient calling with request for lab result. Reviewed telephone encounter form 04/06/23 and notified patient that covid/flu test were negative and discussed plan of care as written in after visit summary from [facility] on 04/05/23. Patient noted feeling worse today with headaches, body aches, and cough but declines NOC triage at this time. Advised to call back and update PCP when office open or send a Adimab message with update. GO TO THE EMERGENCY ROOM OR CALL 911 IF: * You develop any new symptoms * Your condition worsens * You are concerned or anxious about your condition for any other reason. If you have any questions, you can call Nurse continuity editor back. Fidelia Tim RN documented in this encounter [facility] 04-05-2023 Note [facility] 04-05-2023 Instructions FREDIS Young - 04/05/2023 8:25 [...] thin out mucus documented in this encounter [facility] 04-05-2023 History of Present illness Narrative This note was created using Epticariter. Subjective Brandi Muhammad is a 57 year [...] in 05-09: H pylori negative in 05-09 [place] noted sigmoid stricture by Colonoscopy in 05-09: [...] 03/28/2008 Post concussive syndrome seeing neurology at [facility] Pure hypercholesterolemia Sprain of joints and ligaments [...] UNI/BI Right 07/2018 Benign Serous cystadenoma - [facility] Dr. Palm PAST SURGICAL HISTORY OF endometrial [...] (FLONASE) 50 mcg/actuation nasal spray Use 1 [place] in each nostril once daily. JARDIANCE 25 [...] evaluation. FREDIS Young documented in this encounter [facility] 03-31-2023 Miscellaneous Notes PATIENT NOTIFIED OF SAME. Please call Brandi, let her know labs are stable. The labs we specifically checked because of her pain came back with out any issues, no indication of autoimmune issue, rheumatoid factor was negative, inflammatory markers were not elevated, no signs of this being from gout. documented in this encounter [facility] 03-31-2023 Miscellaneous Notes Pharmacy verified in [facility] Patient has been identified by name and [...] Zamzam Banda Pss documented in this encounter [facility] 03-28-2023 Note [facility] 03-28-2023 Instructions Ochoa Monae APRN.CNP - 03/28/2023 11:23 AM EDT Aquaphor documented in this encounter [facility] 03-28-2023 History of Present illness Narrative SUBJECTIVE Brandi Muhammad is a 57 year old female here today for a check up on her medical problems. Chief Complaint Patient presents with: ER F/U: [facility] 03/14/2023 with elevated BP, blood sugar and leg pain HPI Brandi Muhammad is a 57 year old female established patient who presents today for ER follow up. Presented to [facility] ER on 03/11/2023. Documents available to review [...] (FLONASE) 50 mcg/actuation nasal spray Use 1 [place] in each nostril once daily. rosuvastatin (CRESTOR) [...] Other: See Comments nausea Gabapentin Hives, Unknown [place] high [place] high Hydrocodone-Acetami* Vomiting, GI Upset Other reaction(s): Vomiting Ketorolac Unknown, Intolerance, Other: See Comments Skin crawling Metformin Diarrhea Morphine Mental Status Change Naproxen GI Upset Other reaction(s): GI Upset Proair Hfa [Albuter* Other: See Comments works but makes her throat feel tight, doesn't make breathing worse Propoxyphene Vomiting Propoxyphene N-Acet* GI Upset Other reaction(s): GI Upset Seroquel [Quetiapin* [place] drunk at high doses Topiramate Hives Ultram [...] Manic Bipolar I Disorder With Psychotic Features ([facility]) Moderate Persistent Asthma - 10/15/2005 Social History [...] which included preparing to see the patient, [id number] patient care, completing clinical documentation, obtaining and/or [...] 4 weeks (around 04/25/2023) for recheck. AC Fortuen documented in this encounter [facility] 03-11-2023 Miscellaneous Notes Spoke with ER provider, Dr. Pearson regarding patient. Patient sent to ER by triage for concerns of blood pressure, Dr. Pearson states patient there for chronic pain. Discussed and agreed she needs a more chcf solution for her pain control, she is [...] : Postmenopausal Protocols used: Blood Pressure - [id number] documented in this encounter [facility] 03-06-2023 Miscellaneous Notes Patient calling having severe lower back pain radiates down her leg. She is taking advil, using ice and heat and said she is vomiting due to the pain. Aware DOG SITTER is out of office today and advised to go to ER for evaluation. documented in this encounter [facility] 02-28-2023 Miscellaneous Notes Medication refill requests: Patient [...] last office visit in primary care: 01/21/23-Ochoa Monae Next Appt: 03/04/23 with Ochoa Thank you. Georgie Robles RN documented in this encounter [facility] 02-18-2023 Note [facility] 02-08-2023 Miscellaneous Notes Patient notified. Verbalized understanding. Let patient know negative for COVID and flu documented in this encounter [facility] 02-07-2023 Note [facility] 02-07-2023 Instructions FREDIS Young - 02/07/2023 10:39 [...] thin out mucus documented in this encounter [facility] 02-07-2023 History of Present illness Narrative This note was created using Shijiebangter. Subjective Brandi Muhammad is a 57 year [...] No response to Levsin as of 04-08 [place] rec EGD and Colon in 05-09: H pylori negative in 05-09 [place] noted sigmoid stricture by Colonoscopy in 05-09: [...] 03/28/2008 Post concussive syndrome seeing neurology at [facility] Pure hypercholesterolemia Sprain of joints and ligaments [...] UNI/BI Right 07/2018 Benign Serous cystadenoma - [facility] Dr. Palm PAST SURGICAL HISTORY OF endometrial [...] (FLONASE) 50 mcg/actuation nasal spray Use 1 [place] in each nostril once daily. rosuvastatin (CRESTOR) [...] evaluation. FREDIS Young documented in this encounter [facility] 02-04-2023 Miscellaneous Notes Patient notified. Nara Loaiza [...] AMNA BEAULIEU Pharmacy Information Pharmacy Address Telephone [id number] [place] [address] I will send in Clindamycin vaginal cream for her to use for 7 nights, then once she completes that I want her to use the Metrogel 2x/week x 4 weeks. I will see her back in the office after she completes this treatment for recheck. I also sent in Diflucan for her. Amna Beaulieu APRN.MANUEL Patient calling in for results. She is aware of positive BV and yeast result. Please file medications. Patient concerned because she has been +BV so many times in the last 2 months. Please advise. Nara Loaiza RN documented in this encounter [facility] 02-03-2023 Note [facility] 01-24-2023 Miscellaneous Notes Patient returned call and went over results, notes from Ochoa Monae DOG SITTER with understanding. Attempted to call home number [...] to tolerate it. documented in this encounter [facility] 01-24-2023 Miscellaneous Notes Patient notified +BV I sent in Tinidazole it will need prior authorization. Patient has failed several rounds of Flagyl and MetroGel. Amna Beaulieu APRN.CNP documented in this encounter [facility] 01-23-2023 Note [facility] 01-23-2023 History of Present illness Narrative Brandi Muhammad is a 57 year old female who presents for BV follow up HPI: Patient states that she is not having any issues since treatment. Denies any itching or burning at this time. 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 Palm PAST SURGICAL HISTORY OF endometrial [...] (FLONASE) 50 mcg/actuation nasal spray Use 1 [place] in each nostril once daily. rosuvastatin (CRESTOR) [...] external genitalia normal, normal Bartholin's glands, urethra, Ocean's glands, no vulvar lesions, physiologic discharge present, [...] 3 - Low documented in this encounter [facility] 01-21-2023 Note [facility] 01-21-2023 History of Present illness Narrative SUBJECTIVE [...] (FLONASE) 50 mcg/actuation nasal spray Use 1 [place] in each nostril once daily. rosuvastatin (CRESTOR) [...] Other: See Comments nausea Gabapentin Hives, Unknown [place] high [place] high Hydrocodone-Acetami* Vomiting, GI Upset Other reaction(s): Vomiting Ketorolac Unknown, Intolerance, Other: See Comments Skin crawling Metformin Diarrhea Morphine Mental Status Change Naproxen GI Upset Other reaction(s): GI Upset Proair Hfa [Albuter* Other: See Comments works but makes her throat feel tight, doesn't make breathing worse Propoxyphene Vomiting Propoxyphene N-Acet* GI Upset Other reaction(s): GI Upset Seroquel [Quetiapin* [place] drunk at high doses Topiramate Hives Ultram [...] with Dr. Fuchs. Reviewed ER note from [facility]. 2. Hypertension goal BP (blood pressure) < 140/90 - ICD9: 401.9, ICD10: I10 - good control - Continue current medication(s) - Recommended regular aerobic exercise. - Recommend home blood pressure monitoring, to bring results in on next visit - Reviewed risks of HTN and principles of treatment - Goal of BP <140/90 3. Controlled type 2 diabetes mellitus without complication, unspecified whether chcf insulin use (HCC) - ICD9: 250.00, ICD10: [...] mammogram - ICD9: 793.80, ICD10: R92.8 - [facility] - US BREAST LTD RT 7. Hyperlipidemia, unspecified hyperlipidemia [...] 6 weeks (around 03/04/2023) for follow up. CA Fortune documented in this encounter [facility] 01-17-2023 Miscellaneous Notes Protocol recommends ER. Patient [...] (113). 11. : No Protocols used: Back [id number] documented in this encounter [facility] 01-14-2023 Note [facility] 01-14-2023 History of Present illness Narrative Radiology [...] 2023 12:51 PM documented in this encounter [facility] 01-14-2023 Miscellaneous Notes Plan to go over result at up coming follow up appointment scheduled for tomorrow. documented in this encounter [facility] 01-10-2023 Miscellaneous Notes Patient notified of directions. Nurse repeated instructions to patient numerous times and had patient repeat to voice understanding. Patient instructed to call if further questions. Follow-up appointment scheduled Still +BV, will send in Metrogel this time. I would also like her to use boric acid suppositories for 14 nights. Recheck 1 week after completing treatment. Amna Beaulieu APRN.MANUEL documented in this encounter [facility] 01-09-2023 Note [facility] 01-02-2023 Miscellaneous Notes Pt carlos foster and the wrong inhaler went to the pharmacy. She has to have Albuterol HFA Ventolin. Pt was given ProAir and this does not work for her it makes her throat sore. Wendy Juárez LPN Patient has been identified by name and date of : Yes, Provider Ochoa Monae CNP Date 01/02/23 Time 12:01 pm Patient [...] Wendy Juárez LPN documented in this encounter [facility] 12-27-2022 Miscellaneous Notes Patient has been identified [...] Deborah Cash Pss documented in this encounter [facility] 12-25-2022 Miscellaneous Notes Spoke with patient. Given [...] she had a PET scan done at [facility] and Dr Fernandez had order one, but [...] High CM 6.5 High R, CM Comment: [place] [employer] guidelines indicate that patients with HgbA1c in the range 5.7-6.4% are at increased risk for development of diabetes, and intervention by lifestyle modification may be beneficial. HgbA1c greater or equal to 6.5% is considered diagnostic of diabetes. Estimated Average Glucose mg/dL 137 154 CM 140 CM 166 CM 148 CM 140 CM documented in this encounter [facility] 12-23-2022 History of Present illness Narrative SUBJECTIVE Brandi Muhammad is a 57 year old female here today to establish care. Chief Complaint Patient presents with: Establish Care HPI Brandi Muhammad is a 57 year old female who presents today to establish care. Was seeing Dr. Rodriguez for PCP with [facility]. We did receive records from their office and those were reviewed today. She is also seeing Amna Beaulieu for revenue liaison, psychiatry, counseling with [facility], grief counseling, eye provider regularly, pulmonary? Was [...] (FLONASE) 50 mcg/actuation nasal spray Use 1 [place] in each nostril once daily. rosuvastatin (CRESTOR) [...] Other: See Comments nausea Gabapentin Hives, Unknown [place] high [place] high Hydrocodone-Acetami* Vomiting, GI Upset Other reaction(s): Vomiting Ketorolac Unknown, Intolerance, Other: See Comments Skin crawling Metformin Diarrhea Morphine Mental Status Change Naproxen GI Upset Other reaction(s): GI Upset Proair Hfa [Albuter* Other: See Comments works but makes her throat feel tight, doesn't make breathing worse Propoxyphene Vomiting Propoxyphene N-Acet* GI Upset Other reaction(s): GI Upset Seroquel [Quetiapin* [place] drunk at high doses Topiramate Hives Ultram [...] 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 AC Fortune documented in this encounter [facility] 12-17-2022 Miscellaneous Notes Patient notified. Voiced understanding of instructions. Zamzam Wu RN Please let the pt know that she still has both BV and yeast infection. BV positive. To treat with Flagyl 500mg PO BID for 7 days. 1) No alcohol during treatment and for 24 hours after last dose. 2) No intercourse during treatment. +yeast Diflucan x 3 sent in. Amna Beaulieu APRN.CNP documented in this encounter [facility] 12-16-2022 History of Present illness Narrative Sewage Disposal Worker offered: Patient declines. 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 Palm PAST SURGICAL HISTORY OF endometrial [...] external genitalia normal, normal Bartholin's glands, urethra, Ocean's glands, no vulvar lesions, physiologic discharge present, [...] 3 - Low documented in this encounter [facility] 11-29-2022 Miscellaneous Notes Patient notified of results, [...] AMNA BEAULIEU Pharmacy Information Pharmacy Address [facility] #[id number] [place] [address] Judie Jeong RN BV positive. To treat with Flagyl 500mg PO BID for 7 days. 1) No alcohol during treatment and for 24 hours after last dose. 2) No intercourse during treatment. +yeast- Diflucan sent in also All STD testing was negative Amna Beaulieu APRN.CNP documented in this encounter [facility] 11-28-2022 History of Present illness Narrative Sewage Disposal Worker offered: Patient declines. Brandi Muhammad is a [...] apparent distress PELVIC: normal Bartholin's glands, urethra, Ocean's glands, no vulvar lesions, good vaginal support, [...] - TCA treatment done today Amna Beaulieu APRN.CNP INFORMED CONSENT Brandi Muhammad, : 1965, Procedure: [...] which included preparing to see the patient, [id number] patient care, completing clinical documentation, obtaining and/or reviewing separately obtained history, performing a medically appropriate examination, counseling and educating the patient/family/caregiver, and ordering medications, tests, or procedures. documented in this encounter [facility] documented as of this encounter (statuses as of 12/23/2022) [facility] History of Past illness Narrative* Problem Noted [...] No response to Levsin as of 04-08 [place] rec EGD and Colon in 05-09: H pylori negative in 05-09 [place] noted sigmoid stricture by Colonoscopy in 05-09: rec sigmoid colectomy Colon biopsy with a single area of cryptitis as of 05-09: otherwise completely normal so not likely IBD CT 05-09: no mass lesion Anemia, unspecified 03/22/2009 08/15/2016 Overview: Hct 35%, MCV 79 in 4-09, 35%/76 in 5-09, 36%/76 in 6-09, 36%/76 in 8-, 42% in 10 Iron 20, Ferritin 7.4 in 8- (elevated TIBC), 42/11 in 09-08: completed course [...] 10-09 Glucose 139 in 4-, 133 in 10- Cervicalgia 01/08/2006 01/25/2009 Pure hypercholesterolemia 10/15/20052015 Overview: LDL 90, HDL 34, TG 127 in 3-09 Sprain of neck 10/15/2005 01/25/2009 Type II or unspecified type diabetes mellitus without mention of complication, not stated as uncontrolled documented as of this encounter (statuses as of 12/25/2022) [facility] History of Past illness Narrative* Problem Noted [...] No response to Levsin as of 04-08 [place] rec EGD and Colon in 05-09: H pylori negative in 05-09 [place] noted sigmoid stricture by Colonoscopy in 05-09: rec sigmoid colectomy Colon biopsy with a single area of cryptitis as of 05-09: otherwise completely normal so not likely IBD CT 05-09: no mass lesion Anemia, unspecified 03/22/2009 08/15/2016 Overview: Hct 35%, MCV 79 in 03-09, 35%/76 in 5-09, 36%/76 in 6-09, 36%/76 in 8-09, 42% in 10-09 Iron 20, Ferritin 7.4 in 8- (elevated TIBC), 42/11 in 10-: completed course of supplemental iron UA negative for blood in 8-01/31 stool cards negative in - Pain in [...] of this encounter (statuses as of 12/27/2022) [facility] History of Past illness Narrative* Problem Noted [...] No response to Levsin as of 04-08 [place] rec EGD and Colon in 05-09: H pylori negative in 05-09 [place] noted sigmoid stricture by Colonoscopy in 05-09: rec sigmoid colectomy Colon biopsy with a single area of cryptitis as of 05-09: otherwise completely normal so not likely IBD CT 05-09: no mass lesion Anemia, unspecified 03/22/2009 08/15/2016 Overview: Hct 35%, MCV 79 in 03-09, 35%/76 in 04-08, 36%/76 in 6-09, 36%/76 in 07-09, 42% in 09-08 Iron [...] of this encounter (statuses as of 01/02/2023) [facility] History of Past illness Narrative* Problem Noted [...] No response to Levsin as of 04-08 [place] rec EGD and Colon in 05-09: H pylori negative in 05-09 [place] noted sigmoid stricture by Colonoscopy in 05-09: rec sigmoid colectomy Colon biopsy with a single area of cryptitis as of 05-09: otherwise completely normal so not likely IBD CT 05-09: no mass lesion Anemia, unspecified 03/22/2009 08/15/2016 Overview: Hct 35%, MCV 79 in 03-09, 35%/76 in 04-08, 36%/76 in 05-09, 36%/76 in 07-09, 42% in 10 Iron 20, Ferritin 7.4 [...] 0.8 in 5-, 10-09 Glucose 139 in 4-, 133 in 10- Cervicalgia 01/08/2006 01/25/2009 Pure hypercholesterolemia 10/15/20052015 Overview: LDL 90, HDL 34, TG 127 in 3-09 Sprain of neck 10/15/2005 01/25/2009 Type II or unspecified type diabetes mellitus without mention of complication, not stated as uncontrolled documented as of this encounter (statuses as of 01/10/2023) [facility] History of Past illness Narrative* Problem Noted [...] 7.4 in 07-09 (elevated TIBC), 42/11 in 10-: completed course [...] of this encounter (statuses as of 01/17/2023) [facility] History of Past illness Narrative* Problem Noted [...] 7.4 in 07-09 (elevated TIBC), 42/11 in 09: completed course of supplemental iron UA negative [...] of this encounter (statuses as of 01/21/2023) [facility] History of Past illness Narrative* Problem Noted [...] 7.4 in 07-09 (elevated TIBC), 42/11 in 10-09: completed course of supplemental iron UA negative for blood in 8-01/31 stool cards negative in 8- Pain in limb 03/28/2008 01/26/2016 Overview: Left [...] of this encounter (statuses as of 01/23/2023) [facility] History of Past illness Narrative* Problem Noted [...] No response to Levsin as of 04-08 [place] rec EGD and Colon in 05-09: H pylori negative in 05-09 [place] noted sigmoid stricture by Colonoscopy in 05-09: [...] iron UA negative for blood in 07-09 3/3 stool cards negative in 8-09 Pain [...] of this encounter (statuses as of 01/24/2023) [facility] History of Past illness Narrative* Problem Noted [...] No response to Levsin as of 04-08 [place] rec EGD and Colon in 05-09: H pylori negative in 05-09 [place] noted sigmoid stricture by Colonoscopy in 05-09: [...] blood in 07-09 stool cards negative in 8-09 Pain in [...] of this encounter (statuses as of 01/24/2023) [facility] History of Past illness Narrative* Problem Noted [...] No response to [place]sin as of 04-08 [place] rec EGD and Colon in 05-09: H pylori negative in 05-09 [place] noted sigmoid stricture by Colonoscopy in 05-09: [...] of this encounter (statuses as of 02/04/2023) [facility] History of Past illness Narrative* Problem Noted [...] No response to [place]sin as of 04-08 [place] rec EGD and Colon in 05-09: H [...] of this encounter (statuses as of 02/07/2023) [facility] History of Past illness Narrative* Problem Noted [...] No response to [place]sin as of 04-08 [place] rec EGD and Colon in 05-09: H pylori negative in 05-09 [place] noted sigmoid stricture by Colonoscopy in 05-09: [...] 10-09 Glucose 139 in -09, 133 in 10-09 Cervicalgia 01/08/2006 01/25/2009 Pure hypercholesterolemia 10/15/20052015 Overview: LDL 90, HDL 34, TG 127 in 3-09 Sprain of neck 10/15/2005 01/25/2009 Type II or unspecified type diabetes mellitus without mention of complication, not stated as uncontrolled documented as of this encounter (statuses as of 02/08/2023) [facility] History of Past illness Narrative* Problem Noted [...] No response to Levsin as of 04-08 [place] rec EGD and Colon in 05-09: H [...] in - Cervicalgia 01/08/2006 01/25/2009 Pure hypercholesterolemia 10/15/20052015 Overview: LDL 90, HDL 34, TG 127 in -09 Sprain of neck 10/15/2005 01/25/2009 Type II or unspecified type diabetes mellitus without mention of complication, not stated as uncontrolled documented as of this encounter (statuses as of 02/28/2023) [facility] of Past illness Narrative* Problem Noted [...] in 05-09: H pylori negative in 05-09 [place] noted sigmoid stricture by Colonoscopy in 05-09: [...] of this encounter (statuses as of 03/07/2023) [facility] History of Past illness Narrative* Problem Noted [...] of this encounter (statuses as of 03/12/2023) [facility] Past [facility] Narrative* Problem Noted [...] 06/02/2014 Overview: Han gave pt Bactrim in - for her sinuses SLEEP APNEA NOS 04/04/2009 [...] in 05-09: H pylori negative in 05-09 [place] noted sigmoid stricture by Colonoscopy in 05-09: [...] 10-09 Glucose 139 in -09, 133 in 10-09 Cervicalgia 01/08/2006 01/25/2009 Pure hypercholesterolemia 10/15/20052015 Overview: LDL 90, HDL 34, TG 127 in 3-09 Sprain of neck 10/15/2005 01/25/2009 Type II or unspecified type diabetes mellitus without mention of complication, not stated as uncontrolled documented as of this encounter (statuses as of 03/28/2023) [facility] of Past illness Narrative* Problem Noted [...] 10-09 Glucose 139 in -, 133 in 10-09 Cervicalgia 01/08/2006 01/25/2009 Pure hypercholesterolemia 10/15/20052015 Overview: LDL 90, HDL 34, TG 127 in 3-09 Sprain of neck 10/15/2005 01/25/2009 Type II or unspecified type diabetes mellitus without mention of complication, not stated as uncontrolled documented as of this encounter (statuses as of 03/31/2023) [facility] of Past illness Narrative* Problem Noted [...] in 05-09: H pylori negative in 05-09 [place] noted sigmoid stricture by Colonoscopy in 05-09: [...] of this encounter (statuses as of 04/01/2023) [facility] of Past [facility] Narrative* Problem Noted [...] in - Cervicalgia 01/08/2006 01/25/2009 Pure hypercholesterolemia 10/15/20052015 Overview: LDL 90, HDL 34, TG 127 in -09 Sprain of neck 10/15/2005 01/25/2009 Type II or unspecified type diabetes mellitus without mention of complication, not stated as uncontrolled documented as of this encounter (statuses as of 04/05/2023) [facility] Past [facility] Narrative* Problem Noted [...] 04/07/2006 013 Overview: Creat 0.8 in -, - Glucose 139 in 03-09, 133 in 09-08 Cervicalgia 01/08/2006 01/25/2009 Pure hypercholesterolemia 10/15/20052015 Overview: LDL 90, HDL 34, TG 127 in -09 Sprain of neck 10/15/2005 01/25/2009 Type II or unspecified type diabetes mellitus without mention of complication, not stated as uncontrolled documented as of this encounter (statuses as of 04/06/2023) [facility] Past [facility] Narrative* Problem Noted [...] in 05-09: H pylori negative in 05-09 [place] noted sigmoid stricture by Colonoscopy in 05-09: [...] of this encounter (statuses as of 04/07/2023) [facility] of Past illness Narrative* Problem Noted [...] No response to [place]sin as of 04-08 [place] rec EGD and Colon in 05-09: H pylori negative in 05-09 [place] noted sigmoid stricture by Colonoscopy in 05-09: [...] of this encounter (statuses as of 05/20/2023) [facility] Narrative* Problem Noted [...] sinuses SLEEP APNEA NOS 04/04/2009 02/14/2016 Overview: -: AHI 24, REM 74 with low sat [...] No response to [place]sin as of 04-08 [place] rec EGD and Colon in 05-09: H pylori negative in 05-09 [place] noted sigmoid stricture by Colonoscopy in 05-09: [...] 04/07/2006 013 Overview: Creat 0.8 in -, - Glucose 139 in 03-09, 133 in 09-08 Cervicalgia 01/08/2006 01/25/2009 Pure hypercholesterolemia 10/15/20052015 Overview: LDL 90, HDL 34, TG 127 in - Sprain of neck 10/15/2005 01/25/2009 Type II or unspecified type diabetes mellitus without mention of complication, not stated as uncontrolled documented as of this encounter (statuses as of 06/05/2023) [facility] Past [facility] Narrative* Problem Noted [...] No response to [place]sin as of 04-08 [place] rec EGD and Colon in 05-09: H [...] valgus (acquired) 08/13/2007 Impaired fasting glucose 04/07/2006 11/ Overview: Creat 0.8 in -, 10- Glucose 139 in -, 133 in 09-08 Cervicalgia 01/08/2006 01/25/2009 Pure hypercholesterolemia 10/15/2005 Overview: LDL 90, HDL 34, TG 127 in 3-09 Sprain of neck 10/15/2005 01/25/2009 Type II or unspecified type diabetes mellitus without mention of complication, not stated as uncontrolled 10/18/2013 documented as of this encounter (statuses as of 06/13/2023) [facility] Narrative* Problem Noted [...] No response to [place]sin as of 04-08 [place] rec EGD and Colon in 05-09: H pylori negative in 05-09 [place] noted sigmoid stricture by Colonoscopy in 05-09: [...] of this encounter (statuses as of 06/26/2023) [facility] Narrative* Problem Noted [...] of this encounter (statuses as of 07/05/2023) [facility] Narrative* Problem Noted [...] No response to [place]sin as of 04-08 [place] rec EGD and Colon in 05-09: H pylori negative in 05-09 [place] noted sigmoid stricture by Colonoscopy in 05-09: [...] of this encounter (statuses as of 07/15/2023) [facility] Narrative* Problem Noted [...] 10- Glucose 139 in -, 133 in 10 Cervicalgia 01/08/2006 01/25/2009 Pure hypercholesterolemia 10/15/2005 Overview: LDL 90, HDL 34, TG 127 in 3-09 Sprain of neck 10/15/2005 01/25/2009 Type II or unspecified type diabetes mellitus without mention of complication, not stated as uncontrolled 10/18/2013 documented as of this encounter (statuses as of 07/18/2023) [facility] Narrative* Problem Noted [...] No response to [place]sin as of 04-08 [place] rec EGD and Colon in 05-09: H [...] of this encounter (statuses as of 07/18/2023) [facility] Narrative* Problem Noted [...] 09-08 Glucose 139 in -, 133 in 10 Cervicalgia 01/08/2006 01/25/2009 Pure hypercholesterolemia 10/15/2005 Overview: LDL 90, HDL 34, TG 127 in 3-09 Sprain of neck 10/15/2005 01/25/2009 Type II or unspecified type diabetes mellitus without mention of complication, not stated as uncontrolled 10/18/2013 documented as of this encounter (statuses as of 07/21/2023) [facility] Narrative* Problem Noted [...] 09-08 Glucose 139 in 03-09, 133 in 10 Cervicalgia 01/08/2006 01/25/2009 Pure hypercholesterolemia 10/15/2005 Overview: LDL 90, HDL 34, TG 127 in 3-09 Sprain of neck 10/15/2005 01/25/2009 Type II or unspecified type diabetes mellitus without mention of complication, not stated as uncontrolled 10/18/2013 documented as of this encounter (statuses as of 07/22/2023) [facility] Narrative* Problem Noted [...] No response to [place] as of 04-08 [place] rec EGD and Colon in 05-09: H pylori negative in 05-09 [place] noted sigmoid stricture by Colonoscopy in 05-09: [...] of this encounter (statuses as of 08/05/2023) [facility] Narrative* Problem Noted [...] No response to [place] as of 04-08 [place] rec EGD and Colon in 05-09: H pylori negative in 05-09 [place] noted sigmoid stricture by Colonoscopy in 05-09: [...] of this encounter (statuses as of 08/06/2023) [facility] Narrative* Problem Noted [...] of this encounter (statuses as of 08/06/2023) [facility] Narrative* Problem Noted [...] No response to [place] as of 04-08 [place] rec EGD and Colon in 05-09: H [...] of this encounter (statuses as of 09/11/2023) [facility] Narrative* Problem Noted [...] in 05-09: H pylori negative in 05-09 [place] noted sigmoid stricture by Colonoscopy in 05-09: [...] of this encounter (statuses as of 09/26/2023) [facility] Past illness Narrative* Problem Noted [...] of this encounter (statuses as of 10/01/2023) [facility] History of Past illness Narrative* Problem Noted [...] No response to [facility] as of 04-08 [place] rec EGD and Colon in 05-09: H [...] of this encounter (statuses as of 10/04/2023) [facility] History of Past illness Narrative* Problem Noted [...] No response to [facility] as of 04-08 [place] rec EGD and Colon in 05-09: H pylori negative in 05-09 [place] noted sigmoid stricture by Colonoscopy in 05-09: [...] LDL 90, HDL 34, TG 127 in 3 Sprain of neck 10/15/2005 01/25/2009 Type II or unspecified type diabetes mellitus without mention of complication, not stated as uncontrolled 10/18/2013 documented as of this encounter (statuses as of 10/07/2023) [facility] History of Past illness Narrative* Problem Noted [...] in 05-09: H pylori negative in 05-09 [place] noted sigmoid stricture by Colonoscopy in 05-09: [...] of this encounter (statuses as of 10/07/2023) [facility] History of Past illness Narrative* Problem Noted [...] of this encounter (statuses as of 10/13/2023) [facility] History of Past illness Narrative* Problem Noted [...] in 05-09: H pylori negative in 05-09 [place] noted sigmoid stricture by Colonoscopy in 05-09: [...] of this encounter (statuses as of 10/13/2023) [facility] History of Past illness Narrative* Problem Noted [...] No response to [facility] as of 04-08 [place] rec EGD and Colon in 05-09: H pylori negative in 05-09 [place] noted sigmoid stricture by Colonoscopy in 05-09: [...] of this encounter (statuses as of 10/27/2023) [facility] History of Past illness Narrative* Problem Noted [...] of this encounter (statuses as of 10/27/2023) [facility] History of Past illness Narrative* Problem Noted [...] No response to [facility] as of 04-08 [place] rec EGD and Colon in 05-09: H [...] of this encounter (statuses as of 10/31/2023) [facility] History of Past illness Narrative* Problem Noted [...] of this encounter (statuses as of 11/07/2023) [facility] History of Past illness Narrative* Problem Noted [...] in 05-09: H pylori negative in 05-09 [place] noted sigmoid stricture by Colonoscopy in 05-09: [...] in 3-09 Sprain of neck 10/15/2005 01/25/2009 Severe manic bipolar I disor josette with psychotic features 12/16/2023 Type II or unspecified type diabetes mellitus without mention of complication, not stated as uncontrolled 10/18/2013 documented as of this encounter (statuses as of 01/02/2024) [facility] History of Past illness Narrative* Problem Noted [...] No response to [facility] as of 04-08 [place] rec EGD and Colon in 05-09: H pylori negative in 05-09 [place] noted sigmoid stricture by Colonoscopy in 05-09: [...] of this encounter (statuses as of 12/04/2022) [facility] History of Past illness Narrative* Problem Noted [...] No response to [facility] as of 04-08 [place] rec EGD and Colon in 05-09: H [...] of this encounter (statuses as of 12/16/2022) [facility] History of Past illness Narrative* Problem Noted [...] No response to [facility] as of 04-08 [place] rec EGD and Colon in 05-09: H [...] of this encounter (statuses as of 12/17/2022) [facility] History of Past illness Narrative* Problem Noted [...] in 05-09: H pylori negative in 05-09 [place] noted sigmoid stricture by Colonoscopy in 05-09: [...] of this encounter (statuses as of 12/20/2022) [facility] No data available for this section [facility] Evaluation note* Diagnosis Vaginal irritation- Primary Unspecified noninflammatory disorder of vagina Genital warts Condyloma acuminatum documented in this encounter [facility] note* Diagnosis Vulvar irritation- Primary Other specified noninflammatory disorder of vulva and perineum documented in this encounter [facility] note* Diagnosis Hypertension goal BP (blood pressure) < 140/90- Primary Unspecified essential hypertension Hyperlipidemia, unspecified hyperlipidemia type Tobacco use disorder Moderate persistent asthma without complication Unspecified asthma JOHNNY on CPAP Obstructive sleep apnea (adult) (pediatric) Irritable bowel syndrome with both constipation and diarrhea Controlled type 2 diabetes mellitus without complication, unspecified whether ad terminal makeup operator insulin use (HCC) Severe anxiety with panic [...] for seeking consultation documented in this encounter [facility] note* Diagnosis Chronic low back pain with sciatica, sciatica laterality unspecified, unspecified back pain laterality- Primary Hypertension goal BP (blood pressure) < 140/90 Unspecified essential hypertension Controlled type 2 diabetes mellitus without complication, unspecified whether ad terminal makeup operator insulin use ([facility]) Moderate persistent asthma without complication Unspecified asthma Tobacco use disorder Abnormal mammogram Abnormal mammogram, unspecified Hyperlipidemia, unspecified hyperlipidemia type documented in this encounter [facility] note* Diagnosis Bacterial vaginitis- Primary Vaginitis and vulvovaginitis, unspecified documented in this encounter [facility] note* Diagnosis Bacterial vaginal infection- Primary Vaginitis and vulvovaginitis, unspecified Resistance to other single specified antibiotic documented in this encounter [facility] note* Diagnosis URI, acute- Primary Acute upper respiratory infections of unspecified site Sore throat Acute pharyngitis documented in this encounter [facility] note* Diagnosis Chronic low back pain with sciatica, sciatica laterality unspecified, unspecified back pain laterality- Primary Chronic pain syndrome Arthralgia, unspecified joint Hypertension goal BP (blood pressure) < 140/90 Unspecified essential hypertension documented in this encounter [facility] note* Diagnosis URI, acute- Primary Acute upper respiratory infections of unspecified site Sore throat Acute pharyngitis documented in this encounter [facility] note* Diagnosis URI, acute- Primary Acute upper respiratory infections of unspecified site documented in this encounter [facility] note* Diagnosis Encounter for therapeutic drug monitoring- Primary documented in this encounter [facility] note* Diagnosis URI, acute- Primary Acute upper respiratory infections of unspecified site Rhonchi at right lung base History of asthma Personal history of other diseases of respiratory system documented in this encounter [facility] note* Diagnosis Sinobronchitis- Primary Unspecified sinusitis (chronic) Mouth pain Other and unspecified diseases of the oral soft tissues documented in this encounter [facility] note* Diagnosis Encounter for therapeutic drug monitoring- Primary Controlled type 2 diabetes mellitus without complication, unspecified whether chcf insulin use (HCC) Hyperlipidemia, unspecified hyperlipidemia type documented in this encounter [facility] note* Diagnosis Encounter for screening mammogram for breast cancer documented in this encounter [facility] note* Diagnosis Chronic low back pain with sciatica, sciatica laterality unspecified, unspecified back pain laterality- Primary Chronic pain syndrome Controlled type 2 diabetes mellitus without complication, without long-term current use of insulin (HCC) Mixed hyperlipidemia Moderate persistent asthma without complication Unspecified asthma Encounter for immunization Need for other specified prophylactic vaccination against single bacterial disease documented in this encounter [facility] note* Diagnosis Chronic bilateral low back pain with left-sided sciatica- Primary Chronic pain syndrome Radiculopathy of lumbar region Thoracic or lumbosacral neuritis or radiculitis, unspecified documented in this encounter [facility] Discharge instructions No data available for this section [facility] Progress note No data available for this section [facility] Reason for referral (narrative)* Diagnostic Procedure Only (Routine) - Authorized Specialty Diagnoses / Procedures Referred By Daniela t Referred To Contact [facility] Diagnoses Encounter for screening mammogram for breast cancer Procedures MANSOOR SCREENING SCREENING MAMMOGRAPHY BI 2-VIEW BREAST INC Ochoa Craft APRN.TALENT MANAGEMENT SPECIALIST [address] [place] [address] [facility] [address] [place] [id number] Referral ID Status Reason Start Date Expiration Date Visits Requested Visits Authorized [id number] Authorized Auto-Generat ed Referral 12/23/2022 01/22/2024 1 1 [facility] Diagnostic Procedure Only (Routine) - Pending Review Specialty Diagnoses / Procedures Referred By Contac t Referred To Contact [facility] Diagnoses Abnormal mammogram Procedures US BREAST LTD RT US BREAST UNI REAL TIME WITH IMAGE LIMITED Ochoa Monae APRN.TALENT MANAGEMENT SPECIALIST [address] [place], [place] [id number] [facility] [address] [place] [address] Referral ID Status Reason Start Date Expiration Date Visits Requested Visits Authorized [id number] Pending Review Auto-Generat ed Referral 01/21/2023 02/20/2024 1 1 * Diagnostic Procedure Only (Routine) - Authorized Specialty Diagnoses / Procedures Referred By Contac t Referred To Contact [facility] Diagnoses Abnormal mammogram Procedures MANSOOR DIAGNOSTIC RT DIAGNOSTIC MAMMOGRAPHY COMPUTER-AIDED DETCJ UNI Ochoa Monae APRN.TALENT MANAGEMENT SPECIALIST [address] [place] [address] [facility] [address] [place] [address] Referral ID Status Reason Start Date Expiration Date Visits Requested Visits Authorized [id number] Authorized Auto-Generat ed Referral 01/21/2023 11/30/2023 1 1 * Outpatient Procedure (Routine) - Authorized Specialty Diagnoses / Procedures Referred By Contac t Referred To [facility] Diagnoses Moderate persistent asthma without complication Tobacco use disorder Procedures SPIROMETRY - BASELINE AND POST DILATOR BRNCDILAT RSPSE SPMTRY PRE&POST-BRNCDILAT ADMN Ochoa Monae APRN.CNP [facility] [place] [address] [facility] [place] [address] [place] [address] Referral ID Status Reason Start Date Expiration Date Visits Requested Visits Authorized [id number] Authorized Auto-Generat ed Referral 01/21/2023 02/20/2024 1 1 * MRI/CT (Routine) - Pending Review Specialty Diagnoses / Procedures Referred By Santiagoac t Referred To Contact CT IMAG[facility] Diagnoses Moderate persistent asthma without complication Tobacco use disorder Procedures CT CHEST WO IVCON DIAGNOSTIC COMPUTED TOMOGRAPHY THORAX W/O CNTRST Ochoa Monae APRN.TALENT MANAGEMENT SPECIALIST [address] [place] [address] [facility] Referral ID Status Reason Start Date Expiration Date Visits Requested Visits Authorized [id number] Pending Review Auto-Generat ed Referral 01/21/2023 02/20/2024 1 1 * Consult, Test, Treat (Routine) - Authorized Specialty Diagnoses / Procedures Referred By Daniela t Referred To Contact Ophthalmology Diagnoses Controlled type 2 diabetes mellitus without complication, unspecified whether ad terminal makeup operator insulin use (HCC) Procedures CONSULT TO OPHTHALMOLOGY OFFICE/OUTPATIENT NEW HIGH MDM 60-74 MINUTES Ochoa Monae APRN.CNP [address] [place] [id number] Referral ID Status Reason Start Date Expiration Date Visits Requested Visits Authorized [id number] Authorized PCP Requested Referral 01/21/2023 01/21/2024 1 1 [facility] Diagnostic Procedure Only (Routine) - Closed Specialty Diagnoses / Procedures Referred By Daniela t Referred To Contact [facility] Diagnoses Encounter for screening mammogram for breast cancer Procedures MANSOOR SCREENING SCREENING MAMMOGRAPHY BI 2-VIEW BREAST INC CAD Ochoa Monae APRN.TALENT MANAGEMENT SPECIALIST [address] [place] [address] [facility] [address] [place] [address] Referral ID Status Reason Start Date Expiration Date V isits Requested Visits Authorized [id number] Closed Auto-Generate d Referral 12/23/2022 01/22/2024 1 1 [facility] for visit Narrative* Diagnostic Procedure Only (Routine) - Closed Specialty Diagnoses / Procedures Referred By Daniela mayo Referred To Contact [facility] Diagnoses Encounter for screening mammogram for breast cancer Procedures MANSOOR SCREENING SCREENING MAMMOGRAPHY BI 2-VIEW BREAST INC CAD Ochoa Monae APRN.TALENT MANAGEMENT SPECIALIST [address] [place] [address] [facility] [address] [place] [address] Referral ID Status Reason Start Date Expiration Date V isits Requested Visits Authorized [id number] Closed Auto-Generate d Referral 12/23/2022 01/22/2024 1 1 [facility] Summary Purpose Family History No Family History Records FoundNo Family History Records FoundNo Family History Records Found Advance Directives No Advanced Directives Records FoundNo Advanced Directives Records FoundNo Advanced Directives Records Found Reason for Referral Specialty Diagnoses / Procedures Referred By Daniela mayo Referred To Contact Diagnoses Chronic bilateral low back pain with left-sided sciatica Chronic pain syndrome Radiculopathy of lumbar region Procedures CONSULT TO [facility] NON-PHARMACOLOGIC PAIN MANAGEMENT OFFICE/OUTPATIENT [facility] 60-74 MINUTES Ochoa Monae APRN.TALENT MANAGEMENT SPECIALIST [address] [place] [address] Referral ID Status Reason Start Date Expiration Date Visits Requested Visits Authorized [id number] Authorized PCP Requested Referral 10/31/2023 10/30/2024 1 1 Specialty Diagnoses / Procedures Referred By Daniela mayo Referred To Contact [facility] Diagnoses Chronic bilateral low back pain with left-sided sciatica Chronic pain syndrome Radiculopathy of lumbar region Procedures MRI LUMBAR SPINE WO IVCON MRI SPINAL CANAL LUMBAR W/O CONTRAST MATERIAL Ochoa Monae APRN.TALENT MANAGEMENT SPECIALIST [address] [place] [address] [place] [id number] Referral ID Status Reason Start Date Expiration Date Visits Requested Visits Authorized [id number] Pending Review Auto-Generat ed Referral 10/31/2023 11/29/2024 1 1 Specialty Diagnoses / Procedures Referred By Contac t Referred To Contact Diagnoses Chronic low back pain with sciatica, sciatica laterality unspecified, unspecified back pain laterality Procedures CONSULT TO [facility] NON-PHARMACOLOGIC PAIN MANAGEMENT OFFICE/OUTPATIENT [facility] 60-74 MINUTES Ochoa Monae APRN.TALENT MANAGEMENT SPECIALIST [address] [place] [address] Referral ID Status Reason Start Date Expiration Date Visits Requested Visits Authorized [id number] Authorized PCP Requested Referral 03/28/2023 03/27/2024 1 1 Specialty Diagnoses / Procedures Referred By Contac t Referred To Contact Diagnoses Bacterial vaginal infection Resistance to other single specified antibiotic Amna Beaulieu APRN.TALENT MANAGEMENT SPECIALIST [address] [place] [id number] Referral ID Status Reason Start Date Expiration Date Visits Re quested Visits Authorized [id number] Closed 1 1 Specialty Diagnoses / Procedures Referred By Contac t Referred To Contact Ochoa Monae APRN.TALENT MANAGEMENT SPECIALIST [address] [place] [address] Referral ID Status Reason Start Date Expiration Date Visits Re quested Visits Authorized [id number] Closed 1 1 Health Concerns Infection Onset Date Last Indicated Resolved Time COVID-19 Rule-Out 02/07/2023 02/07/2023 Infection Onset Date Last Indicated Resolved Time COVID-19 Rule-Out 04/05/2023 04/05/2023 Additional Source Comments INFORMATION SOURCE (unrecogn ized section and content) DATE CREATED AUTHOR AUTHOR'S ORGANIZ ATION 12/28/2023 [facility] DATE CREATED AUTHOR AUTHOR'S ORGANIZ ATION 01/04/2024 [facility] Care Team (unrecognized sect ion and content) Care Team Personnel Name: GILL RODRIGUEZ MD Member Role: Primary Care Physician Address: Address: [address] [place], [place] [id number]- Care Team Related Persons Name: SAM ZAMBRANO Name: AMARA HOLMAN Name: AMARA HOLMAN Name: [...] or prosecute any alcohol or drug abuse patient.[facility] the event this information is protected by the Federal Confidentiality of Alcohol and Drug Abuse Patient Records regulations: The Federal rules restrict any use of the information to criminally investigate or prosecute any alcohol or drug abuse patient.[facility] the event this information is protected by the Federal Confidentiality of Alcohol and Drug Abuse Patient Records regulations: The Federal rules restrict any use of the information to criminally investigate or prosecute any alcohol or drug abuse patient.[facility] the event this information is protected by the Federal Confidentiality of Alcohol and Drug Abuse Patient Records regulations: The Federal rules restrict any use of the information to criminally investigate or prosecute any alcohol or drug abuse patient.[facility] the event this information is protected by the Federal Confidentiality of Alcohol and Drug Abuse Patient Records regulations: The Federal rules restrict any use of the information to criminally investigate or prosecute any alcohol or drug abuse patient.[facility] the event this information is protected by the Federal Confidentiality of Alcohol and Drug Abuse Patient Records regulations: The Federal rules restrict any use of the information to criminally investigate or prosecute any alcohol or drug abuse patient.[facility] the event this information is protected by the Federal Confidentiality of Alcohol and Drug Abuse Patient Records regulations: The Federal rules restrict any use of the information to criminally investigate or prosecute any alcohol or drug abuse patient.[facility] the event this information is protected by the Federal Confidentiality of Alcohol and Drug Abuse Patient Records regulations: The Federal rules restrict any use of the information to criminally investigate or prosecute any alcohol or drug abuse patient.[facility] Hospital[facility] the event this information is protected by the Federal Confidentiality of Alcohol and Drug Abuse Patient Records regulations: The Federal rules restrict any use of the information to criminally investigate or prosecute any alcohol or drug abuse patient.[facility] the event this information is protected by the Federal Confidentiality of Alcohol and Drug Abuse Patient Records regulations: The Federal rules restrict any use of the information to criminally investigate or prosecute any alcohol or drug abuse patient.[facility] the event this information is protected by the Federal Confidentiality of Alcohol and Drug Abuse Patient Records regulations: The Federal rules restrict any use of the information to criminally investigate or prosecute any alcohol or drug abuse patient.[facility] HospitalIn the event this information is protected by the Federal Confidentiality of Alcohol and Drug Abuse Patient Records regulations: The Federal rules restrict any use of the information to criminally investigate or prosecute any alcohol or drug abuse patient.[facility] the event this information is protected by the Federal Confidentiality of Alcohol and Drug Abuse Patient Records regulations: The Federal rules restrict any use of the information to criminally investigate or prosecute any alcohol or drug abuse patient.[facility] HospitalIn the event this information is protected by the Federal Confidentiality of Alcohol and Drug Abuse Patient Records regulations: The Federal rules restrict any use of the information to criminally investigate or prosecute any alcohol or drug abuse patient.[facility] the event this information is protected by the Federal Confidentiality of Alcohol and Drug Abuse Patient Records regulations: The Federal rules restrict any use of the information to criminally investigate or prosecute any alcohol or drug abuse patient.[facility] the event this information is protected by the Federal Confidentiality of Alcohol and Drug Abuse Patient Records regulations: The Federal rules restrict any use of the information to criminally investigate or prosecute any alcohol or drug abuse patient.[facility] Hospital[facility] the event this information is protected by the Federal Confidentiality of Alcohol and Drug Abuse Patient Records regulations: The Federal rules restrict any use of the information to criminally investigate or prosecute any alcohol or drug abuse patient.[facility] the event this information is protected by the Federal Confidentiality of Alcohol and Drug Abuse Patient Records regulations: The Federal rules restrict any use of the information to criminally investigate or prosecute any alcohol or drug abuse patient.[facility] the event this information is protected by the Federal Confidentiality of Alcohol and Drug Abuse Patient Records regulations: The Federal rules restrict any use of the information to criminally investigate or prosecute any alcohol or drug abuse patient.[facility] HospitalIn the event this information is protected by the Federal Confidentiality of Alcohol and Drug Abuse Patient Records regulations: The Federal rules restrict any use of the information to criminally investigate or prosecute any alcohol or drug abuse patient.[facility] HospitalIn the event this information is protected by the Federal Confidentiality of Alcohol and Drug Abuse Patient Records regulations: The Federal rules restrict any use of the information to criminally investigate or prosecute any alcohol or drug abuse patient.[facility] the event this information is protected by the Federal Confidentiality of Alcohol and Drug Abuse Patient Records regulations: The Federal rules restrict any use of the information to criminally investigate or prosecute any alcohol or drug abuse patient.[facility] Hospital[facility] the event this information is protected by the Federal Confidentiality of Alcohol and Drug Abuse Patient Records regulations: The Federal rules restrict any use of the information to criminally investigate or prosecute any alcohol or drug abuse patient.[facility] the event this information is protected by the Federal Confidentiality of Alcohol and Drug Abuse Patient Records regulations: The Federal rules restrict any use of the information to criminally investigate or prosecute any alcohol or drug abuse patient.[facility] the event this information is protected by the Federal Confidentiality of Alcohol and Drug Abuse Patient Records regulations: The Federal rules restrict any use of the information to criminally investigate or prosecute any alcohol or drug abuse patient.[facility] the event this information is protected by the Federal Confidentiality of Alcohol and Drug Abuse Patient Records regulations: The Federal rules restrict any use of the information to criminally investigate or prosecute any alcohol or drug abuse patient.[facility] the event this information is protected by the Federal Confidentiality of Alcohol and Drug Abuse Patient Records regulations: The Federal rules restrict any use of the information to criminally investigate or prosecute any alcohol or drug abuse patient.[facility] Hospital[facility] the event this information is protected by the Federal Confidentiality of Alcohol and Drug Abuse Patient Records regulations: The Federal rules restrict any use of the information to criminally investigate or prosecute any alcohol or drug abuse patient.[facility] HospitalIn the event this information is protected by the Federal Confidentiality of Alcohol and Drug Abuse Patient Records regulations: The Federal rules restrict any use of the information to criminally investigate or prosecute any alcohol or drug abuse patient.[facility] HospitalIn the event this information is protected by the Federal Confidentiality of Alcohol and Drug Abuse Patient Records regulations: The Federal rules restrict any use of the information to criminally investigate or prosecute any alcohol or drug abuse patient.[facility] HospitalIn the event this information is protected by the Federal Confidentiality of Alcohol and Drug Abuse Patient Records regulations: The Federal rules restrict any use of the information to criminally investigate or prosecute any alcohol or drug abuse patient.[facility] HospitalIn the event this information is protected by the Federal Confidentiality of Alcohol and Drug Abuse Patient Records regulations: The Federal rules restrict any use of the information to criminally investigate or prosecute any alcohol or drug abuse patient.[facility] HospitalIn the event this information is protected by the Federal Confidentiality of Alcohol and Drug Abuse Patient Records regulations: The Federal rules restrict any use of the information to criminally investigate or prosecute any alcohol or drug abuse patient.[facility] HospitalIn the event this information is protected by the Federal Confidentiality of Alcohol and Drug Abuse Patient Records regulations: The Federal rules restrict any use of the information to criminally investigate or prosecute any alcohol or drug abuse patient.[facility] HospitalIn the event this information is protected by the Federal Confidentiality of Alcohol and Drug Abuse Patient Records regulations: The Federal rules restrict any use of the information to criminally investigate or prosecute any alcohol or drug abuse patient.[facility] HospitalIn the event this information is protected by the Federal Confidentiality of Alcohol and Drug Abuse Patient Records regulations: The Federal rules restrict any use of the information to criminally investigate or prosecute any alcohol or drug abuse patient.[facility] HospitalIn the event this information is protected by the Federal Confidentiality of Alcohol and Drug Abuse Patient Records regulations: The Federal rules restrict any use of the information to criminally investigate or prosecute any alcohol or drug abuse patient.[facility] HospitalIn the event this information is protected by the Federal Confidentiality of Alcohol and Drug Abuse Patient Records regulations: The Federal rules restrict any use of the information to criminally investigate or prosecute any alcohol or drug abuse patient.[facility] HospitalIn the event this information is protected by the Federal Confidentiality of Alcohol and Drug Abuse Patient Records regulations: The Federal rules restrict any use of the information to criminally investigate or prosecute any alcohol or drug abuse patient.[facility] HospitalIn the event this information is protected by the Federal Confidentiality of Alcohol and Drug Abuse Patient Records regulations: The Federal rules restrict any use of the information to criminally investigate or prosecute any alcohol or drug abuse patient.[facility] HospitalIn the event this information is protected by the Federal Confidentiality of Alcohol and Drug Abuse Patient Records regulations: The Federal rules restrict any use of the information to criminally investigate or prosecute any alcohol or drug abuse patient.[facility] HospitalIn the event this information is protected by the Federal Confidentiality of Alcohol and Drug Abuse Patient Records regulations: The Federal rules restrict any use of the information to criminally investigate or prosecute any alcohol or drug abuse patient.[facility] HospitalIn the event this information is protected by the Federal Confidentiality of Alcohol and Drug Abuse Patient Records regulations: The Federal rules restrict any use of the information to criminally investigate or prosecute any alcohol or drug abuse patient.[facility] HospitalIn the event this information is protected by the Federal Confidentiality of Alcohol and Drug Abuse Patient Records regulations: The Federal rules restrict any use of the information to criminally investigate or prosecute any alcohol or drug abuse patient.[facility] HospitalIn the event this information is protected by the Federal Confidentiality of Alcohol and Drug Abuse Patient Records regulations: The Federal rules restrict any use of the information to criminally investigate or prosecute any alcohol or drug abuse patient.[facility] HospitalIn the event this information is protected by the Federal Confidentiality of Alcohol and Drug Abuse Patient Records regulations: The Federal rules restrict any use of the information to criminally investigate or prosecute any alcohol or drug abuse patient.[facility] HospitalIn the event this information is protected by the Federal Confidentiality of Alcohol and Drug Abuse Patient Records regulations: The Federal rules restrict any use of the information to criminally investigate or prosecute any alcohol or drug abuse patient.[facility] HospitalIn the event this information is protected by the Federal Confidentiality of Alcohol and Drug Abuse Patient Records regulations: The Federal rules restrict any use of the information to criminally investigate or prosecute any alcohol or drug abuse patient.[facility] HospitalIn the event this information is protected by the Federal Confidentiality of Alcohol and Drug Abuse Patient Records regulations: The Federal rules restrict any use of the information to criminally investigate or prosecute any alcohol or drug abuse patient.[facility] HospitalIn the event this information is protected by the Federal Confidentiality of Alcohol and Drug Abuse Patient Records regulations: The Federal rules restrict any use of the information to criminally investigate or prosecute any alcohol or drug abuse patient.[facility] ClinicIn the event this information is protected by the Federal Confidentiality of Alcohol and Drug Abuse Patient Records regulations: The Federal rules restrict any use of the information to criminally investigate or prosecute any alcohol or drug abuse patient.[facility] HospitalIn the event this information is protected by the Federal Confidentiality of Alcohol and Drug Abuse Patient Records regulations: The Federal rules restrict any use of the information to criminally investigate or prosecute any alcohol or drug abuse patient.[facility] HospitalIn the event this information is protected by the Federal Confidentiality of Alcohol and Drug Abuse Patient Records regulations: The Federal rules restrict any use of the information to criminally investigate or prosecute any alcohol or drug abuse patient.[facility] Reason for Visit (unrecogniz ed section and [...] Reason Comments Hypertension Reason Comments ER F/U [facility] 03/14/2023 with elevated BP, blood sugar and [...] worse. No improvement with baclofen or Lyrica Reason Comments EKG results to be faxed to [facility] p re admission testing Care Teams (unrecognized sec tion and content) Master Tax Advisor Relationship Specialty Start Date End Date Gill Rodriguez MD [address] [place], [place] [address] PCP - General Internal Medicine 06/28/19 Christine Morrison, TALENT MANAGEMENT SPECIALIST [address] [place] [address] Referring Family Medicine 05/01/18 Dheeraj Ceron MD [address] [place], [place] [address] Referring Cerebrovascular 05/10/19 Master Tax Advisor Relationship Specialty Start Date End Date Gill Rodriguez MD [address] [place], [place] [id number] PCP - General Internal Medicine 06/28/19 Christine Morrison, TALENT MANAGEMENT SPECIALIST [address] [place], [place] [address] Referring Family Medicine 05/01/18 Dheeraj Ceron MD [address] [place] [address] Referring Cerebrovascular 05/10/19 Master Tax Advisor Relationship Specialty Start Date End Date Ochoa Monae, FARMWORKER GRAIN.TALENT MANAGEMENT SPECIALIST [address] [place] [address] PCP - General Internal Medicine 12/23/22 Christine Morrison, TALENT MANAGEMENT SPECIALIST [address] [place] [address] Referring Family Medicine 05/01/18 Dheeraj Ceron MD [address] [place] [address] Referring Cerebrovascular 05/10/19 Master Tax Advisor Relationship Specialty Start Date End Date Ochoa Monae, FARMWORKER GRAIN.TALENT MANAGEMENT SPECIALIST [address] [place] [address] PCP - General Internal Medicine 12/23/22 Christine Morrison, TALENT MANAGEMENT SPECIALIST [address] [place] [address] Referring Family Medicine 05/01/18 Dheeraj Ceron MD [address] [place] [address] Referring Cerebrovascular 05/10/19 Master Tax Advisor Relationship Specialty Start Date End Date Ochoa Monae, FARMWORKER GRAIN.TALENT MANAGEMENT SPECIALIST [address] [place] [address] PCP - General Internal Medicine 12/23/22 Christine Morrison, TALENT MANAGEMENT SPECIALIST [address] [place] [address] Referring Family Medicine 05/01/18 Dheeraj Ceron MD [address] [place] [address] Referring Cerebrovascular 05/10/19 Master Tax Advisor Relationship Specialty Start Date End Date Ochoa Monae APRN.TALENT MANAGEMENT SPECIALIST [address] [place] [address] PCP - General Internal Medicine 12/23/22 Christine Morrison, TALENT MANAGEMENT SPECIALIST [address] [place] [address] Referring Family Medicine 05/01/18 Dheeraj Ceron MD [address] [place] [address] Referring Cerebrovascular 05/10/19 Master Tax Advisor Relationship Specialty Start Date End Date Ochoa Monae APRN.TALENT MANAGEMENT SPECIALIST [address] [place] [address] PCP - General Internal Medicine 12/23/22 Christine Morrison, TALENT MANAGEMENT SPECIALIST [address] [place] [address] Referring Family Medicine 05/01/18 Dheeraj Ceron MD [address] [place] [address] Referring Cerebrovascular 05/10/19 Master Tax Advisor Relationship Specialty Start Date End Date Ochoa Monae APRN.TALENT MANAGEMENT SPECIALIST [address] [place] [address] PCP - General Internal Medicine 12/23/22 Christine Morrison, TALENT MANAGEMENT SPECIALIST [address] [place] [address] Referring Family Medicine 05/01/18 Dheeraj Ceron MD [address] [place] [address] Referring Cerebrovascular 05/10/19 Master Tax Advisor Relationship Specialty Start Date End Date Ochoa Monae APRN.TALENT MANAGEMENT SPECIALIST [address] [place] [address] PCP - General Internal Medicine 12/23/22 Christine Morrison, MANUEL [address] [place] [address] Referring Family Medicine 05/01/18 Dheeraj Ceron MD [address] [place] [address] Referring Cerebrovascular 05/10/19 Master Tax Advisor Relationship Specialty Start Date End Date Ochoa Monae, FARMWORKER GRAIN.TALENT MANAGEMENT SPECIALIST [address] [place] [address] PCP - General Internal Medicine 12/23/22 Christine Morrison, MANUEL [address] [place] [address] Referring Family Medicine 05/01/18 Dheeraj Ceron MD [address] [place] [address] Referring Cerebrovascular 05/10/19 Master Tax Advisor Relationship Specialty Start Date End Date Ochoa Monae, FARMWORKER GRAIN.TALENT MANAGEMENT SPECIALIST [address] [place] [address] PCP - General Internal Medicine 12/23/22 Christine Morrison, MANUEL [address] [place] [address] Referring Family Medicine 05/01/18 Dheeraj Ceron MD [address] [place] [address] Referring Cerebrovascular 05/10/19 Master Tax Advisor Relationship Specialty Start Date End Date Ochoa Monae FARMWORKER GRAIN.TALENT MANAGEMENT SPECIALIST [address] [place] [address] PCP - General Internal Medicine 12/23/22 Christine Morrison, TALENT MANAGEMENT SPECIALIST [address] [place] [address] Referring Family Medicine 05/01/18 Dheeraj Ceron MD [address] [place] [address] Referring Cerebrovascular 05/10/19 Master Tax Advisor Relationship Specialty Start Date End Date Ochoa Monae APRN.TALENT MANAGEMENT SPECIALIST [address] [place] [address] PCP - General Internal Medicine 12/23/22 Christine Morrison, MANUEL [address] [place] [address] Referring Family Medicine 05/01/18 Dheeraj Ceron MD [address] [place] [address] Referring Cerebrovascular 05/10/19 Master Tax Advisor Relationship Specialty Start Date End Date Ochoa Monae FARMWORKER GRAIN.TALENT MANAGEMENT SPECIALIST [address] [place] [address] PCP - General Internal Medicine 12/23/22 Christine Morrison, TALENT MANAGEMENT SPECIALIST [address] [place] [address] Referring Family Medicine 05/01/18 Dheeraj Ceron MD [address] [place] [address] Referring Cerebrovascular 05/10/19 Master Tax Advisor Relationship Specialty Start Date End Date Ochoa Monae APRN.TALENT MANAGEMENT SPECIALIST [address] [place] [address] PCP - General Internal Medicine 12/23/22 Christine Morrison, TALENT MANAGEMENT SPECIALIST [address] [place] [address] Referring Family Medicine 05/01/18 Dheeraj Ceron MD [address] [place] [address] Referring Cerebrovascular 05/10/19 Master Tax Advisor Relationship Specialty Start Date End Date Ochoa Monae, FARMWORKER GRAIN.TALENT MANAGEMENT SPECIALIST [address] [place] [address] PCP - General Internal Medicine 12/23/22 Christine Morrison, TALENT MANAGEMENT SPECIALIST [address] [place] [address] Referring Family Medicine 05/01/18 Dheeraj Ceron MD [address] [place] [address] Referring Cerebrovascular 05/10/19 Master Tax Advisor Relationship Specialty Start Date End Date Ochoa Monae, FARMWORKER GRAIN.TALENT MANAGEMENT SPECIALIST [address] [place] [address] PCP - General Internal Medicine 12/23/22 Christine Morrison, TALENT MANAGEMENT SPECIALIST [address] [place] [address] Referring Family Medicine 05/01/18 Dheeraj Ceron MD [address] [place] [address] Referring Cerebrovascular 05/10/19 Master Tax Advisor Relationship Specialty Start Date End Date Ochoa Monae, FARMWORKER GRAIN.TALENT MANAGEMENT SPECIALIST [address] [place] [address] PCP - General Internal Medicine 12/23/22 Christine Morrison, TALENT MANAGEMENT SPECIALIST [address] [place] [address] Referring Family Medicine 05/01/18 Dheeraj Ceron MD [address] [place] [address] Referring Cerebrovascular 05/10/19 Master Tax Advisor Relationship Specialty Start Date End Date Ochoa Monae APRN.TALENT MANAGEMENT SPECIALIST [address] [place] [address] PCP - General Internal Medicine 12/23/22 Christine Morrison, TALENT MANAGEMENT SPECIALIST [address] [place] [address] Referring Family Medicine 05/01/18 Dheeraj Ceron MD [address] [place] [address] Referring Cerebrovascular 05/10/19 Master Tax Advisor Relationship Specialty Start Date End Date Ochoa Monae APRN.TALENT MANAGEMENT SPECIALIST [address] [place] [address] PCP - General Internal Medicine 12/23/22 Christine Morrison, TALENT MANAGEMENT SPECIALIST [address] [place] [address] Referring Family Medicine 05/01/18 Dheeraj Ceron MD [address] [place] [address] Referring Cerebrovascular 05/10/19 Master Tax Advisor Relationship Specialty Start Date End Date Ochoa Monae APRN.TALENT MANAGEMENT SPECIALIST [address] [place] [address] PCP - General Internal Medicine 12/23/22 Christine Morrison, TALENT MANAGEMENT SPECIALIST [address] [place] [address] Referring Family Medicine 05/01/18 Dheeraj Ceron MD [address] [place] [address] Referring Cerebrovascular 05/10/19 Master Tax Advisor Relationship Specialty Start Date End Date Ochoa Monae APRN.TALENT MANAGEMENT SPECIALIST [address] [place] [address] PCP - General Internal Medicine 12/23/22 Christine Morrison, MANUEL [address] [place] [address] Referring Family Medicine 05/01/18 Dheeraj Ceron MD [address] [place] [address] Referring Cerebrovascular 05/10/19 Master Tax Advisor Relationship Specialty Start Date End Date Ochoa Monae FARMWORKER GRAIN.TALENT MANAGEMENT SPECIALIST [address] [place] [address] PCP - General Internal Medicine 12/23/22 Christine Morrison CNP [address] [place] [address] Referring Family Medicine 05/01/18 Dheeraj Ceron MD [address] [place] [address] Referring Cerebrovascular 05/10/19 Master Tax Advisor Relationship Specialty Start Date End Date Ochoa Monae, FARMWORKER GRAIN.TALENT MANAGEMENT SPECIALIST [address] [place] [address] PCP - General Internal Medicine 12/23/22 Christine Morrison, TALENT MANAGEMENT SPECIALIST [address] [place] [address] Referring Family Medicine 05/01/18 Dheeraj Ceron MD [address] [place] [address] Referring Cerebrovascular 05/10/19 Master Tax Advisor Relationship Specialty Start Date End Date Ochoa Monae APRN.TALENT MANAGEMENT SPECIALIST [address] [place] [address] PCP - General Internal Medicine 12/23/22 Christine Morrison, MANUEL [address] [place] [address] Referring Family Medicine 05/01/18 Dheeraj Ceron MD [address] [place] [address] Referring Cerebrovascular 05/10/19 Master Tax Advisor Relationship Specialty Start Date End Date Ochoa Monae FARMWORKER GRAIN.TALENT MANAGEMENT SPECIALIST [address] [place] [address] PCP - General Internal Medicine 12/23/22 Christine Morrison CNP [address] [place] [address] Referring Family Medicine 05/01/18 Dheeraj Ceron MD [address] [place] [address] Referring Cerebrovascular 05/10/19 Master Tax Advisor Relationship Specialty Start Date End Date Ochoa Monae APRN.TALENT MANAGEMENT SPECIALIST [address] [place] [address] PCP - General Internal Medicine 12/23/22 Christine Morrison, MANUEL [address] [place] [address] Referring Family Medicine 05/01/18 Dheeraj Ceron MD [address] [place] [address] Referring Cerebrovascular 05/10/19 Master Tax Advisor Relationship Specialty Start Date End Date Ochoa Monae APRN.TALENT MANAGEMENT SPECIALIST [address] [place] [address] PCP - General Internal Medicine 12/23/22 Christine Morrison, MANUEL [address] [place] [address] Referring Family Medicine 05/01/18 Dheeraj Ceron MD [address] [place] [address] Referring Cerebrovascular 05/10/19 Master Tax Advisor Relationship Specialty Start Date End Date Ochoa Monae APRN.TALENT MANAGEMENT SPECIALIST [address] [place] [address] PCP - General Internal Medicine 12/23/22 Christine Morrison CNP [address] [place] [address] Referring Family Medicine 05/01/18 Dheeraj Ceron MD [address] [place] [address] Referring Cerebrovascular 05/10/19 Master Tax Advisor Relationship Specialty Start Date End Date Ochoa Monae APRN.TALENT MANAGEMENT SPECIALIST [address] [place] [address] PCP - General Internal Medicine 12/23/22 Christine Morrison, MANUEL [address] [place] [address] Referring Family Medicine 05/01/18 Dheeraj Ceron MD [address] [place] [address] Referring Cerebrovascular 05/10/19 Master Tax Advisor Relationship Specialty Start Date End Date Ochoa Monae APRN.TALENT MANAGEMENT SPECIALIST [address] [place] [address] PCP - General Internal Medicine 12/23/22 Christine Morrison, MANUEL [address] [place] [address] Referring Family Medicine 05/01/18 Dheeraj Ceron MD [address] [place] [address] Referring Cerebrovascular 05/10/19 Master Tax Advisor Relationship Specialty Start Date End Date Ochoa Monae APRN.TALENT MANAGEMENT SPECIALIST [address] [place] [address] PCP - General Internal Medicine 12/23/22 Christine Morrison, MANUEL [address] [place] [address] Referring Family Medicine 05/01/18 Dheeraj Ceron MD [address] [place] [address] Referring Cerebrovascular 05/10/19 Master Tax Advisor Relationship Specialty Start Date End Date Ochoa Monae APRN.TALENT MANAGEMENT SPECIALIST [address] [place] [address] PCP - General Internal Medicine 12/23/22 Christine Morrison, MANUEL [address] [place] [address] Referring Family Medicine 05/01/18 Dheeraj Ceron MD [address] [place] [address] Referring Cerebrovascular 05/10/19 Master Tax Advisor Relationship Specialty Start Date End Date Ochoa Monae APRN.TALENT MANAGEMENT SPECIALIST [address] [facility], [place] [address] PCP - General Internal Medicine 12/23/22 Christine Morrison, MANUEL [address] [place], [place] [address] Referring Family Medicine 05/01/18 Dheeraj Ceron MD [address] [place], [place] [address] Referring Cerebrovascular 05/10/19 Master Tax Advisor Relationship Specialty Start Date End Date Ochoa Monae FARMWORKER GRAIN.TALENT MANAGEMENT SPECIALIST [address] [place], [place] [address] PCP - General Internal Medicine 12/23/22 Christine Morrison CNP Referring Family Medicine 05/01/18 Dheeraj Ceron MD [address] [place], [place] [address] Referring Cerebrovascular 05/10/19 FOR RECORDS PERTAINING TO [...] BE BASED ON THE PRIMARY CLINICAL RECORDS. [employer] [facility]. provides no warranty or guarantee of the accuracy or completeness of information in this document.
[2024-01-05 07:58] LABS: Bedside Glucose 245 mg/dL (74-106)
[2024-01-05] MEDS: Lactated Ringers 1,000 ML 15 ML IV (08:00)
[2024-01-05] MEDS: Magnesium 1 GM over 15 mins IV (08:00)
[2024-01-05] MEDS: Acetaminophen 500 MG Tablet 1000 MG PO ×2 (08:17→21:31)
[2024-01-05] MEDS: Insulin Lispro 100 UNIT/ML INSULN.PEN SC ×3 (08:17→21:39)
--- NOTE | 2024-01-05 09:05 | PCM.HP.BLA ---
History and Physical Date of Admission: 01/05/24 MR#: [id number] Acct: [id number] Name: RHONDA MORRISON EBONY Rep #: [id number] : 1965 Provider: Dr. Yonatan Estrada MD Age/Sex: 58/F Location: [facility] – [place], [place] Status: Signed Intake Vital Signs 12/09/2415:22 12/23/2411:39 Height 5 ft 3 in 5 ft 3 in Intake Visit Reasons: lumbar spine Chief Complaint: lumbar spine Is patient in pain?: Yes (lumbar spine ) Pain scale (1-10): 7 Allergies red dye Allergy (Severe, Verified 12/26/23 13:02) swelling carbidopa Allergy (Verified 12/26/23 13:02) Unknowngabapentin Allergy (Verified 12/26/23 13:02) Unknownlatex Allergy (Verified 12/26/23 13:02) Rashquetiapine fumarate [From Seroquel] Allergy (Verified 12/26/23 13:02) Othertopiramate [From Topamax] Allergy (Verified 12/26/23 13:02) Hivestramadol HCl [From Ultram] Allergy (Verified 12/26/23 13:02) Otheramitriptyline Adverse Reaction (Verified 12/26/23 13:02) Vomitingaspirin Adverse Reaction (Verified 12/26/23 13:02) Upset Stomachcyclobenzaprine HCl [From Flexeril] Adverse Reaction (Verified 12/26/23 13:02) Upset Stomachetodolac [Etodolac] Adverse Reaction (Verified 12/26/23 13:02) Vomitinghydrocodone bitartrate [From Vicodin] Adverse Reaction (Verified 12/26/23 13:02) Vomitingmetformin Adverse Reaction (Verified 12/26/23 13:02) Diarrheametoclopramide [From Reglan] Adverse Reaction (Verified 12/26/23 13:02) Othernaproxen [From Naprosyn] Adverse Reaction (Verified 12/26/23 13:02) Upset Stomachpropoxyphene napsylate [From Darvocet-N 100] Adverse Reaction (Verified 12/26/23 13:02) Vomiting Medications alprazolam 2 mg tablet 2 mg PO BID PRN Anxiety 04/24/19 [History Confirmed 12/26/23] nebulizers (Altera Nebulizer System) #1 ea 09/06/20 [Rx Confirmed 12/26/23] fluticasone propionate 50 mcg/actuation nasal spray,suspension See Rx Instructions .Route PRN PRN Nasal Congestion #15.8 mL 11/16/21 [Rx Confirmed 12/26/23] blood-glucose meter (OneTouch Verio Flex Meter) #1 ea 11/27/21 [Rx Confirmed 12/26/23] blood sugar diagnostic (Blood Glucose Test strips) #50 ea 11/28/21 [Rx Confirmed 12/26/23] blood-glucose meter #1 ea 11/28/21 [Rx Confirmed 12/26/23] lancets 32 gauge #100 ea 11/28/21 [Rx Confirmed 12/26/23] lamotrigine 200 mg tablet 200 mg PO BID BIPOLAR 03/12/22 [History Confirmed 12/26/23] paroxetine HCl 30 mg tablet 30 mg PO DAILY BIPOLAR 05/08/22 [History Confirmed 12/26/23] ipratropium 0.5 mg-albuterol 3 mg (2.5 mg base)/3 mL nebulization soln 3 ml inhalation Q8H PRN shortness of breath or wheezing #90 mL 07/22/22 [Rx Confirmed 12/26/23] blood sugar diagnostic (OneTouch Verio test strips) #100 ea 08/28/22 [Rx Confirmed 12/26/23] ondansetron 4 mg disintegrating tablet 4 mg PO Q8H PRN nausea and vomiting #30 tabs 09/27/22 [Rx Confirmed 12/26/23] budesonide-formoterol HFA 160 mcg-4.5 mcg/actuation aerosol inhaler (Symbicort) 2 puff inhalation BID ASTHMA #10.2 grams 11/04/22 [Rx Confirmed 12/26/23] Ventolin HFA 90 mcg/actuation aerosol inhaler (albuterol sulfate) 2 puff inhalation Q6H PRN shortness of breath or wheezing #8 grams 12/09/22 [Rx Confirmed 12/26/23] empagliflozin 25 mg tablet (Jardiance) 25 mg PO QAM DM #30 tabs 08/25/23 [Rx Confirmed 12/26/23] acetaminophen 500 mg capsule 500 mg PO Q6H PRN pain 12/22/23 [History Confirmed 12/26/23] aripiprazole 2 mg tablet 2 mg PO DAILY BIPOLAR 12/22/23 [History Confirmed 12/26/23] lisinopril 20 mg tablet 20 mg PO DAILY HTN 12/22/23 [History Confirmed 12/26/23] omeprazole 40 mg capsule,delayed release 20 mg PO DAILY GERD 12/22/23 [History Confirmed 12/26/23] rosuvastatin 10 mg tablet 10 mg PO QHS HLD 12/22/23 [History Confirmed 12/26/23] PFSH Medical History Abnormal EKG Acute exacerbation of chronic low back pain Anxiety Anxiety and depression Arthritis Asthma Back pain Back pain Bipolar disorder Carpal tunnel syndrome Chronic back pain Chronic headaches Chronic radicular lumbar pain Concussion Cough Diabetes Easy bruising Encounter for screening for malignant neoplasm of lung in current smoker with 30 pack year history or greater Essential hypertension Excessive bleeding Fall Flu vaccine need GERD (gastroesophageal reflux disease) Grief Head injury High cholesterol Hx of emotional problems Hyperlipidemia IBS (irritable bowel syndrome) Marijuana use Muscle spasm Neuropathy Panic attack Post concussion syndrome Restless legs Seasonal allergies Type 2 diabetes mellitus Urinary incontinence Vision problems Wears glasses Surgical History History of History of cholecystectomy History of colonoscopy History of foot surgery History of nasal polypectomy History of partial hysterectomy History of rectal surgery History of total hysterectomy S/P knee surgery Family History Mother Malignant hyperthermia due to anesthesia Angina pectoris Arthritis Bowel disease Myocardial infarction Heart disease Hypertension High cholesterol CVA (cerebral vascular accident)Father Asthma Arthritis Myocardial infarction Heart disease High cholesterol Hypertension CVA (cerebral vascular accident) Leukemia DiabetesGrandmother Lung cancerGrandfather DiabetesGrandmother Diabetes Social History household members: none Smoking Status: Current every day smoker tobacco type: cigarettes Tobacco: How many years used: 46 Electronic Cigarette Use: not used how long ago did patient quit smokin+ pack year smoking history (1.5-2 ppd x 32 years, 3 ppd x 14 years). second hand exposure: Yes quit status: considering quitting counseling given: provider counseling alcohol intake: never substance use type: does not use what type of physical activity do you participate in: walking and bicycling HPI lumbar spine Details: This documentation accurately reflects the service provided and the decisions made by me, Dr. Yonatan Estrada MD 12/26/23 1301. Part of today?s visit was documented by [ ], acting as scribe. RHONDA MORRISON is a 58 year old F here today for preoperative appointment for upcoming surgery on 01-05-24. Rhonda continues to have low back pain with left worse than right lower extremity radiation of pain. She has tried to cut down on smoking and is now on 1.5 packs/day. Following is a previous history. 12/11/23: RHONDA MORRISON is a 58 year old F here today for a followup on her lumbar spine. Patient completed 1 visit of physical therapy but was told that she needed to stop until further evaluation. Patient states that she was told she has no reflexes. Patient notes that she had an MRI at [facility] yesterday which she did not bring with her today. Patient states that she always has pain and she has weakness into her bilateral legs. She had numbness into her groin and knee. Patient notes that she is able to hold her urine. She notes that she had a few episodes of bowel incontinence. She takes baclofen and lyrica for pain. Rhonda has had severe back pain radiating to left lower extremity and symptoms towards the right as well over the last 2 years. Initially this was related to right-sided pain and she also underwent right knee arthroscopic surgery with Dr. Gee 4 years ago. With time over the last year or so she has had severe left-sided symptoms such that her pain radiates into the anterior thigh also going to the lateral leg and dorsum of the foot. She has had 3 episodes of epidural injections by Dr. Garcia about a year ago which did not give her persistent relief. She has also tried physical therapy a few months ago which was focused towards the lower back pain as well as the lower extremity symptoms. She restarted physical therapy few days ago and was found to have symptoms of possible hyporeflexia and some bladder bowel disturbance symptoms. On questioning in about details, it appears that patient has difficulty with straining during urination. She denies any obvious swelling episodes. She mentions of some numbness in the perineal area but says that this has been there for a year. She is able to walk only about 1 block distance after which she has to find a place to sit down. She has diabetes and asthma. Her last A1c was 7 point something per her own report. Lab reports not available. She smokes 2 pack/day. Ortho Exam General General: Yes no acute distress Neurologic: Yes alert and Yes oriented x3 Spine SPINE TESTING CERVICAL THORACIC LUMBAR Musculoskeletal Strength 0=absent - 5=normal Details: Examination of the back shows midline and left paraspinal tenderness. Neurologic evaluation of lower extremity shows 5 x 5 power in all muscles except for left quadriceps which is graded 4+. Positive straight leg raise test on the left. Coding Level of Care Code Off vis,est,level 3 Diagnoses Spondylolisthesis, lumbar region M43.16 Assessment and Plan Assessment and Plan (1) Spondylolisthesis, lumbar region: Status: Acute Plan I reviewed her x-rays of the lumbar spine done recently and also obtained dynamic views today. These show subtle L3-4 and grade 1 L4-5 spondylolisthesis. L4-5 shows dynamic instability on flexion-extension views. I reviewed the MRI from 12/10/2023. These show L3-4 and L4-5 grade 1 spondylolisthesis with mild to moderate central and severe foraminal stenosis. Considering these imaging findings and the fact that she has worsened clinically over the last 2 years such that now she is potentially having numbness in the perineal area, difficulty walking distances, severe radicular symptoms, it may be reasonable to consider surgical intervention. I did give her an option of reexploring possibility of epidural injections which the patient declined. I encouraged her to quit smoking as her surgical intervention would likely require a fusion which has a high rate of pseudoarthrosis because of her smoking history. I also recommended that she needs to have her diabetes A1c well-controlled with an A1c of less than 7.5 for optimizing results from surgery. Surgical options were discussed in detail. L3-5 anterior posterior fusion with indirect decompression was discussed in detail. All risk benefits and alternatives were discussed in detail. The risks include but are not limited to infection, bleeding, injury to nerves and vessels, injury to major vessels, injury to viscera, need for blood transfusion, pseudoarthrosis, hardware failure, need for further procedures, adjacent segment degeneration, DVT, pulmonary embolism, cardiopulmonary event. She understands and agrees to proceed with surgery. Consent was signed.
[2024-01-05] MEDS: Cefazolin 2 GM in 0.9% Normal Saline (100mL Bag) 100 ML IV (09:26)
--- NOTE | 2024-01-05 10:00 | RAD_ITS ---
CLINICAL HISTORY: Female, 58 years old. Anterior and posterior fusion at the L3-L4 and L4-L5 levels with prosthetic disc placement. FLUOROSCOPY TIME (if supplied): (2 minutes and 26 seconds) minutes/seconds. 42.97 mCi RAD/Lumbar Spine 2 or 3 Views IMPRESSION: Intraoperative imaging provided for L3-L4 and L4-L5 fusion with prosthetic disc placement. Electronically Signed: Clayton Grimm MD at 15:12 EST ,
[2024-01-05 11:16] LABS: Bedside Glucose 155 mg/dL (74-106)
[2024-01-05 13:46] LABS: Bedside Glucose 232 mg/dL (74-106)
[2024-01-05] MEDS: Ropivacaine 0.5% 30 ML Vial (13:57)
--- NOTE | 2024-01-05 14:10 | OP.PCM_ITS ---
Report of Operation Date of Procedure: 01/05/24 Description of Surgical Findings:: Preoperative diagnosis: L3-4, L4-5 spondylolisthesis, disc degeneration with foraminal stenosis Postoperative diagnosis: Same Name of procedures L3-5 oblique lumbar interbody fusion (OLIF), minimally invasive right sided approach, lateral decubitus: ? L3-4 anterolateral spinal fusion 18333 ? L4-5 anterolateral fusion 08247/51 ? L3-4 insertion of cage 35245 ? L4-5 insertion of cage 78442/51 ? Bone graft aspirate vertebral body ? Allograft cancellous chips Attending Surgeon: Dr. Yonatan Estrada Co-surgeon: Dr. Kevin Greer Estimated blood loss: 100 mL Anesthesia: General Complications: None Indications: Patient is a 58-year-old pleasant lady who has had a long history of low back pain and radiation of pain to the left worse than right lower extremities along with neurogenic claudication. Xrays & MRI revealed L3-4 L4-5 spondylolisthesis, disc degeneration and foraminal stenosis with dynamic instability. After undergoing a prolonged period of nonoperative treatment, he elected to undergo surgical decompression & fusion. All surgical options were discussed with the patient including anterior and posterior approaches. All risks and benefits associated with the procedure were explained to the patient. The risks include but are not limited to infection, bleeding, injury to nerves and vessels including major vessels like IVC and aorta, persistent paresthesia, persistent pain, dural tear, need for further procedures, adjacent segment degeneration, pseudoarthrosis, hardware failure, retrograde ejaculation, paralytic ileus, etc. Procedure: The patient was identified in the preoperative holding suite using Unique patient identifiers. Skin was marked, consent was reviewed, and all questions were answered. The patient was then brought back to the operative room. A surgical timeout was performed to make sure correct procedure was being done on the correct patient and all operative room staff were on the same page. General endotracheal anesthesia was then given to the patient. Lindo catheter was inserted. The patient was then carefully positioned in right lateral decubitus position with the left side up on a regular OR table. Axillary roll was placed and all bony prominences were well- padded. Hip positioners were placed in the posterior buttocks and anterior sternal area. The surgical area was prepped and draped in usual fashion. Preoperative antibiotic was injected IV as preoperative antibiotic. A final timeout was then again done just before starting the procedure. Anterolateral left-sided approach was performed in conjunction with Dr. Kevin gonzalez. Please review his operative note for additional details. A 2 inch incision oblique was taken in the left lower quadrant of the abdomen 2 fingerbreadths away from the iliac crest and the lower ribs. Sharp dissection with Bovie was carried out up to the fascia covering the external oblique. The external oblique, internal oblique and transversus abdominis muscles were split along the muscle fibers and retroperitoneal space was entered. Sponge sticks were utilized to move the bowel and peritoneum [id number]-way and psoas muscle was exposed staying within the retroperitoneal plane. [employer] retractor system was positioned and the retractor blade was applied onto the psoas. The interval between psoas and midline structures was developed and appropriate retractors were placed. Once adequate interval was cleared, a disc space was identified and a marker x-ray was taken. This identified the L3-4 disc level. The prepsoas interval was then traced inferiorly to expose the L4-5 disc. Annulotomy was done with a long handled knife starting at L4-5. Pituitary was used to remove disc material. Curettes were used to prepare the endplates. Disc space spreaders were utilized to distract and increase the disc height. Near complete discectomy was performed. Trials of serially increasing sizes were used. A Jamshidi needle was used to aspirate bone marrow from the vertebral body and this aspirate was mixed with the allograft bone chips. A Dep[employer] Armstrong cage of size of the 18 x 45 x 12 mm with 15 degrees lordosis was packed with corticocancellous allograft bone chips mixed with bone marrow aspirate. This was inserted into the L4-5 disc space. The retractors were then repositioned to expose the L3-4 disc and the procedure was repeated with complete discectomy and endplate preparation. Smaller disc distractors were also used to bluntly perform a contralateral annulotomy at both levels. Cage size was 18 x 45 x 12 mm at L3-4. AP and lateral C-arm pictures were taken to confirm good position of the cage. Some bone chips were also packed around the cages. Screw with washer was placed into the lower L4 body with a washer partially covering the cage at L4-5. Hemostasis was confirmed. The retractor blades were removed. Closure was done in layers with a continuous strand of # 1 Vicryl in all muscle layers. 2-0 Vicryl was used for subcutaneous tissue and 4-0 for Monocryl for the skin. Steri-Strips were applied and 4 x 4 gauze and Tegaderm were applied. Admit VTE Documentation VTE Mechan Device Prophylaxis: SCD's Procedures Musculoskeletal 20xxx-29xxx: Other Procedure See Report
--- NOTE | 2024-01-05 14:16 | PCM.OPRPT ---
Report of Operation Date of Procedure: 01/05/24 Description of Surgical Findings:: preoperative diagnosis: L3-4, L4-5 spondylolisthesis, disc degeneration with foraminal stenosis Postoperative diagnosis: Same Name of procedures: L3-5 posterior percutaneous pedicle screw instrumented fusion, prone: ? L3-4 posterior spinal fusion 33979 ? L3-5 posterior pedicle screw instrumentation 42349 ? L4-5 posterior fusion 45779/51 ? Allograft cancellous chips Attending Surgeon: Dr. Yonatan Estrada Estimated blood loss: 100 mL (total for entire case) Anesthesia: General Complications: None Description of procedure: After the anterior procedure was complete, the patient was then turned supine. The patient was then transferred to Osbaldo table in prone position. Back was prepped and draped in usual fashion. C-arm AP view was then taken. C-arm was positioned in a way that L3 was centralized and superior endplate of was parallel to the beam. Spinous process was centered between the pedicles. Midline was marked with skin marker and lateral borders of the pedicles were also marked. Skin marker was also utilized to elías transversely across the middle of the pedicles at L3. 2 transverse paramedian incisions of 1 inch were placed. The fascia was incised vertically. Finger dissection was utilized to palpate the transverse process and facet joint. Viper Prime screws with towers were inserted and docked onto the transverse processes. This was then slowly moved medially to reach the superior articular process of L3. This was then confirmed on C-arm and then a mallet was utilized to drive the trocar into the pedicle going up to the medial wall of the pedicle on AP view. This was performed both sides. C-arm lateral view confirmed that the tip of the trocar was in the vertebral body, and the screw was advanced into the pedicle and vertebral body. This was repeated similarly at L4 and L5 bilaterally. Screw sizes were 7 x 50 mm at L3 and L5, and 7 x 45 mm at L4 on both sides. 75 mm precontoured titanium 5.5 mm lordotic jacky on the right and 80 mm on the left were then passed through the screw extensions and reduced down to the screws with the help of [employer] instrumentation system on both sides. AP and lateral view of the C-arm showed good positioning of the screws and cages. Final tightening with the torque screwdriver was then completed. [place] was utilized to roughen the facet joint at L3-4 and L4-5 on the right side. Cancellous allograft bone chips mixed with bone marrow aspirate were then placed over this decorticated area. Hemostasis was achieved. Closure was done in layers with 0 Vicryls for the fascia, 2-0 Vicryls for the subcutaneous tissue, and Monocryl for the skin. Dermabond was applied. Dressings were applied covered with Tegaderm. The patient was then turned supine onto a hospital bed. The patient was extubated and taken to PACU in stable condition. The patient tolerated the procedure well and no complications occurred. [employer] [place] cage & Viper Prime minimally invasive pedicle screw instrumentation system was utilized in this case. No dural tear was identified intraoperatively. I was present for the entirety of the case and performed the surgery. Admit VTE Documentation VTE Mechan Device Prophylaxis: SCD's Procedures Musculoskeletal 20xxx-29xxx: Other Procedure See Report
[2024-01-05 14:48] LABS: Bedside Glucose 202 mg/dL (74-106)
--- NOTE | 2024-01-05 17:48 | PN.HOSP_ITS ---
Reason for Visit Reason for Visit: Diagnoses Encounter for other preprocedural examination (01/05/24) Subjective Subjective 58-year-old female history of GERD, bipolar disorder, back pain, diabetes, asthma, hypertension who presented to [facility] 01/05/2024 for L3-4 and L4-5 spondylolisthesis and disc degeneration with foraminal stenosis and underwent fusion and instrumentation with Dr. Murphy 01/05/2024. Hospitalist consulted for med management. Patient evaluated at bedside post surgery and reports she is in a little bit of pain and wants to try to move around and thinks this will be helpful, also a little bit nauseous, better than it was immediately postop but still has some residual. Denies any other acute complaints at this time. Objective Data Objective Data Vital Signs: Vital Signs Temp Pulse Resp BP Pulse Ox O2 Del Method O2 Flow Rate 97.5 F L 90 18 147/91 H 90 Nasal Cannula 2 01/05/24 15:49 01/05/24 15:49 01/05/24 15:49 01/05/24 15:49 01/05/24 15:49 01/05/24 15:49 01/05/24 15:49 Oxygen Flow Rate (L/min) 2 Oxygen Delivery Method Nasal Cannula Weight: 64.637 kg Body Mass Index (BMI) 25.2 Intake & Output: Intake and Output for Last 24 Hours 01/03/24 01/04/24 01/05/24 23:59 23:59 23:59 Intake Total 2212 / 2212 Output Total 625 / 625 Balance 1587 / 1587 Lab / Micro Data Labs: Laboratory Results - last 24 hr 01/05/24 07:34: POC Glucose 245 H 01/05/24 10:57: POC Glucose 155 H 01/05/24 13:28: POC Glucose 232 H 01/05/24 14:29: POC Glucose 202 H Micro: Microbiology 12/26/23 14:06 Swab (Method) Nasal Screen MRSA/MSSA - Final Radiography Diagnostic Testing: Radiology Impression Lumbar Spine X-Ray 01/05/24 10:00 IMPRESSION: Intraoperative imaging provided for L3-L4 and L4-L5 fusion with prosthetic disc placement. Electronically Signed: Clayton Grimm MD at 15:12 EST , Physical Exam Narrative General: Alert, oriented, no apparent distress HEENT: Atraumatic, normocephalic Eyes: Anicteric, normal conjunctiva, extraocular movements grossly intact Neck: Supple Respiratory: Clear to auscultation bilaterally, normal respiratory effort Cardiovascular: Regular rate and rhythm GI: Soft, nontender, nondistended Extremities: No edema Musculoskeletal: Moving all extremities Neuro: No overt focal neurological deficits Skin: No rashes appreciated Psych: Cooperative Assessment & Plan Assessment/Plan (1) Chronic back pain: (2) Asthma: (3) Essential hypertension: (4) GERD (gastroesophageal reflux disease): (5) Tobacco dependence: (6) Type 2 diabetes mellitus: QUALIFIERS: Diabetes mellitus assisted insulin use: without assisted use Diabetes mellitus complication status: with other specified complication Qualified Code(s): E11.69 - Type 2 diabetes mellitus with other specified complication (7) Bipolar disorder: PLAN: Plan #L3-4 and L4-5 spondylolisthesis and disc degeneration with foraminal stenosis -underwent fusion and instrumentation with Dr. Murphy 01/05/2024 -PT/OT -Management per primary -Pain control # Bipolar disorder/anxiety -Continue Abilify, Lamictal, Paxil -Patient additionally has alprazolam as needed #GERD -Continue PPI # Hypertension -Takes lisinopril daily -This has been resumed # Asthma -Denies any shortness of breath at this time -Symbicort not on formulary, substituted for budesonide every 12 -Albuterol as needed #Tobacco use -Advise cessation -Nicotine replacement available if desired #Type 2 diabetes mellitus -Will change patient to ACHS glucose checks and sliding scale insulin -Hold home oral hypoglycemics #DVT ppx: Timing at discretion of primary Adalgisa Aldana MD Time spent in the patient's overall evaluation,decision-making process, review of diagnostic data, adjustment of management, discussion with other providers, nursing nursing and ancillary staff involved in patient's care documentation, 35 minutes Charges/Coding Visit Charges Inpatient E&M: 17547 Subs Hosp L2
[2024-01-05] MEDS: ALPRAZolam 0.5 MG Tablet 2 MG PO (17:59)
[2024-01-05] MEDS: Ketorolac 15 MG/ML Vial IV ×2 (18:00→23:25)
[2024-01-05] MEDS: Cefazolin 1 GM/50 ML BAG IV (18:00)
[2024-01-05] MEDS: Methocarbamol 500 MG Tablet 1000 MG PO ×2 (18:01→21:30)
[2024-01-05] MEDS: Albuterol 2.5 MG/3 ML VIAL.NEB. INHALATION (19:31)
[2024-01-05] MEDS: Budesonide Respules 0.5 MG/2 ML AMPUL.NEB. INHALATION (19:33)
[2024-01-05 22:47] LABS: Bedside Glucose 209 mg/dL (74-106)
[2024-01-06] MEDS: Cefazolin 1 GM/50 ML BAG IV (01:05)
[2024-01-06 06:00] VITALS: BP 154/85; PULSE 98; RESP 18; TEMP 36.6; O2SAT 96
[2024-01-06] MEDS: Insulin Lispro 100 UNIT/ML INSULN.PEN SC ×2 (06:02→12:12)
[2024-01-06] MEDS: Acetaminophen 500 MG Tablet 1000 MG PO (06:02)
[2024-01-06] MEDS: 0.9% Saline Lock 10 ML Syringe IV (06:02)
[2024-01-06] MEDS: Ketorolac 15 MG/ML Vial IV (06:02)
[2024-01-06 06:32] LABS: Bedside Glucose 156 mg/dL (74-106)
[2024-01-06] MEDS: Albuterol 2.5 MG/3 ML VIAL.NEB. INHALATION (06:52)
[2024-01-06] MEDS: Budesonide Respules 0.5 MG/2 ML AMPUL.NEB. INHALATION (06:52)
[2024-01-06 06:53] VITALS: PULSE 70; RESP 18; O2SAT 94
[2024-01-06 06:54] LABS: Absolute Lymphocyte Count 2.84 X10^3/uL (0.83-4.51); Absolute Neutrophil Count 10.4 X10^3/uL (2.0-7.7); Basophil# 0.03 X10^3/uL; Basophil% 0.2 % (0-1); Hematocrit 42.9 % (37-47); Hemoglobin 14.1 g/dL (12.0-15.0); Lymphocyte # 2.84 X10^3/ul (0.83-4.51); Lymphocyte % 19.8 % (19-41); Mean Corp Hgb Conc 32.9 g/dL (32-36); Mean Corpuscular Hgb 29.2 pg (27.0-32.0); Mean Corpuscular Volume 88.8 fL (81-99); Mean Platelet Vol. 9.3 fl (6.2-12.0); Monocyte# 0.98 X10^3/uL; Monocyte% 6.8 % (0-10); NRBC Flagged by Analyzer 0 % (0-5); Neutrophil # 10.43 X10^3/uL (2.7-7.7); Neutrophil % 72.8 % (47-70); Platelet Count 279 K/mm3 (150-450); RBC Distribution Width CV 14.1 % (11.6-14.6); RBC Distribution Width SD 45.5 fl (35.1-43.9); Red Blood Count 4.83 M/mm3 (4.2-5.4); White Blood Count 14.3 K/mm3 (4.4-11.0)
[2024-01-06 07:34] LABS: Anion Gap 5 (5-15); BUN 14 mg/dL (7-18); BUN/Creat Ratio 20.1 RATIO (10-20); Chloride 111 mmol/L (98-107); EST Glomerular Filtration Rate 92 mL/min (>60); Est Glom Filt Rate - Afr Amer 111 mL/min (>60); Estimated Creatinine Clearance 78.27 ml/min; Glucose 160 mg/dL (74-106); Potassium 3.8 mmol/L (3.5-5.1); Sodium Level 141 mmol/L (136-145)
[2024-01-06] MEDS: ALPRAZolam 0.5 MG Tablet 2 MG PO (07:38)
[2024-01-06] MEDS: Ensure Surgery 237 ML LIQUID PO (07:38)
[2024-01-06 07:49] VITALS: BP 153/98; PULSE 90; RESP 16; TEMP 36.7; O2SAT 96
[2024-01-06] MEDS: ARIPiprazole 2 MG Tablet PO (09:48)
[2024-01-06] MEDS: Meloxicam 15 MG Tablet PO (09:48)
[2024-01-06] MEDS: lamoTRIgine 100 MG Tablet 200 MG PO (09:48)
[2024-01-06] MEDS: PARoxetine 10 MG Tablet 30 MG PO (09:49)
[2024-01-06] MEDS: Pantoprazole Sodium 20 MG Tablet PO (09:50)
[2024-01-06] MEDS: Methocarbamol 500 MG Tablet 1000 MG PO (09:50)
[2024-01-06] MEDS: Lisinopril 20 MG Tablet PO (09:51)
--- NOTE | 2024-01-06 10:03 | PN.ORTHO_ITS ---
Subjective Subjective Postop day 1 status post L3-5 fusion. Doing well. Pain well-controlled with Tylenol, Toradol, methocarbamol. On sliding scale for diabetes. Was able to walk the hallway with nursing overnight as well as with PT this morning. Has already passed gas and tolerated solid breakfast. Says that her preoperative radicular symptoms in her lower extremities have resolved. Had some nausea postoperatively last night, but improved significantly today. Objective Data Objective Data Vital Signs: Vital Signs Temp Pulse Resp BP Pulse Ox O2 Del Method O2 Flow Rate 98.0 F 90 16 153/98 H 96 Room Air 2 01/06/24 07:49 01/06/24 07:49 01/06/24 07:49 01/06/24 07:49 01/06/24 07:49 01/06/24 07:49 01/05/24 23:49 Oxygen Flow Rate (L/min) 2 Oxygen Delivery Method Room Air Weight: 142 lb 8 oz Body Mass Index (BMI) 25.2 Intake & Output: Intake and Output for Last 24 Hours 01/04/24 01/05/24 01/06/24 23:59 23:59 23:59 Intake Total 2695.5 / 2695.5 50 / 50 Output Total 625 / 625 Balance 2070.5 / 2070.5 50 / 50 Lab / Micro Data 01/06/24 06:34 01/06/24 06:34 Labs: Laboratory Results - last 24 hr 01/05/24 10:57: POC Glucose 155 H 01/05/24 13:28: POC Glucose 232 H 01/05/24 14:29: POC Glucose 202 H 01/05/24 21:34: POC Glucose 209 H 01/06/24 05:55: POC Glucose 156 H 01/06/24 06:34: WBC 14.3 H, RBC 4.83, Hgb 14.1, Hct 42.9, MCV 88.8, MCH 29.2, MCHC 32.9, RDW Std Deviation 45.5 H, RDW Coeff of [place] 14.1, Plt Count 279, MPV 9.3, Immature Gran % (Auto) 0.400, Neut % (Auto) 72.8 H, Lymph % (Auto) 19.8, [place] % (Auto) 6.8, Eos % (Auto) 0.0, Baso % (Auto) 0.2, Absolute Neuts (auto) 10.4 H, Absolute Lymphs (auto) 2.84, Nucleated RBC % 0, Sodium 141, Potassium 3.8, Chloride 111 H, Carbon Dioxide 25.0, Anion Gap 5, BUN 14, Creatinine 0.70, Estim Creat Clear Calc 78.27, Est GFR (MDRD) Af Amer 111, Est GFR (MDRD) Non-Af 92, BUN/Creatinine Ratio 20.1 H, Glucose 160 H, Calcium 9.0 Micro: Microbiology 12/26/23 14:06 Swab (Method) Nasal Screen MRSA/MSSA - Final Radiography Diagnostic Testing: Radiology Impression Lumbar Spine X-Ray 01/05/24 10:00 IMPRESSION: Intraoperative imaging provided for L3-L4 and L4-L5 fusion with prosthetic disc placement. Electronically Signed: Clayton Grimm MD at 15:12 EST , Physical Exam Narrative Examination of the back and belly show dressings CDI. Neurologic evaluation lower extremity shows 5 out of 5 power normal shows normal sensations in all dermatomes. Assessment & Plan Assessment/Plan (1) Status post lumbar spinal fusion: PLAN: Plan Patient doing well. Diet advanced to regular. Continue PT OT. Upright x-rays today. Will discharge to home today. Follow-up in 2 weeks.
--- NOTE | 2024-01-06 10:10 | RAD_ITS ---
STUDY: X-RAY - LUMBAR SPINE REASON FOR EXAM: Female, 58 years old. s/p L3-5 fusion -- pls do Upright AP, Lat TECHNIQUE: 2 view(s) of the lumbar spine were obtained. COMPARISON: Comparison is made with prior study dated December 11, 2023. FINDINGS: Normal lumbar lordosis. There is no substantial scoliosis. There is a normal alignment of the vertebrae. The patient is status post interpedicular screw and jacky fixation with prosthetic disc at the L3-L4 and L4-L5 levels. There is atherosclerotic calcification of the abdominal aorta without a demonstrated aneurysm. RAD/Lumbar Spine 2 or 3 Views IMPRESSION: Status post interpedicular screw and jacky fixation at the L3-L4 and L4-L5 levels with prosthetic disc placement. Electronically Signed: Clayton Grimm MD at 10:47 EST ,
--- NOTE | 2024-01-06 11:20 | CASEMGMT ---
TORIE MOCK Face to Face with patient for initial transition planning/care coordination assessment. RN EMILI introduced self and role at [facility]. Patient sittinig in chair, alert and oriented, boyfriend at bedside. Patient willing to participate in assessment and is able to answer all questions appropriately. Care providers, pharmacy, and demographics verified. Patient wishes to discharge home with outpatient therapy at [facility]. Patient wishes for CM to schedule appt. Patient states she has no further needs or concerns at this time. CM to follow for discharge planning needs that may arise. PCP: [facility] Specialists: paolo Estrada spinal; paolo Gee Preferred Pharmacy: Brigette [facility] retail at discharge. Insurance: [employer] Prescription Benefit: yes Living Will/HPOA: none LNOK: boyfriend Living Arrangements: Patient lives with boyfriend in a single story home with 3 steps and railing to enter the home. Patient is independent at home Transportation: self, boyfriend DME/HHC: Patient has walker and nebulizer at home. No previous HHC or SNF. Disposition Plan: Patient to discharge home with outpatient therapy, family support, and follow-up plans in place. Erin WOLF, RN, CM
--- NOTE | 2024-01-06 11:30 | PCM.OPRPT ---
Report of Operation Date of Procedure: 01/05/24 Pre-Operative Diagnosis: L3-4, L4-5 spondylolisthesis, disc degeneration with foraminal stenosis Post-Operative Diagnosis: same Surgery/Procedure Performed:: L3-5 oblique lumbar interbody fusion (OLIF), minimally invasive right sided approach, lateral decubitus: ? L3-4 anterolateral spinal fusion 05722 ? L4-5 anterolateral fusion 25292/51 ? L3-4 insertion of cage 43578 ? L4-5 insertion of cage 19793/51 Surgeon: Dr. Estrada, Dr. Greer Co-surgeons Type of Anesthesia: General Description of Procedure: HPI: Patient is a 58-year-old female with L3-L4 and L4-L5 spondylolisthesis and disc degeneration with foraminal stenosis evaluated by Dr. Estrada and felt to be appropriate for oblique lumbar interbody fusion. Vascular surgery is utilized for exposure and mobilization. Description of procedure: Upon obtaining form consent and verification correct patient procedure site patient was taken the operating where she was placed under general anesthesia. She was then positioned prepped and draped in usual sterile fashion a time was performed. Lumbar disc space were then marked with fluoroscopy an oblique incision was made above the left iliac crest. Bovie electrocautery was then used dissect down through subcutaneous tissue to the level of the fascia at which point self-retaining retractor put in position. The fascia was then incised and the external oblique muscle was split along the orientation of the fibers exposing internal bleed. Retractors then moved deeper in the wound and the internal oblique was split followed the orientation of the fibers exposing the transversalis muscle. Finally this was dissected along the orientation of its fibers gaining access into the retroperitoneal space. Blunt dissection using sponge sticks was then performed to mobilize the abdominal contents off the lateral and posterior abdominal wall until the psoas muscle was visualized. At this point self-retaining retractor syne frame was then put into position and self-retaining retractor blades positioned to further mobilize the abdominal contents and the psoas off the lateral aspect of the lumbar spine. The L3-L4 disc space was then identified and confirmed with fluoroscopy. Dissection then carried distally onto the L4-L5 disc space with further mobilization of the psoas and surrounding structures. Once satisfactory mobilization and visualization was obtained the discectomy and cage insertion which will be described by Dr. Estrada in further detail was performed. Upon satisfactory discectomy, fusion, cage insertion the field was then inspected for hemostasis and retractors withdrawn. The muscle was then reapproximated with Vicryl in continuous fashion. Skin incision was closed with Monocryl and Dermabond. At the inclusion of this portion Dr. Estrada then proceeded with posterior approach instrumentation which she will dictate separately.
--- NOTE | 2024-01-06 12:08 | PHA.DC_ITS ---
Pharmacy [facility] has performed discharge medication reconciliation and counseling for this patient. 1. MELOXICAM 15MG PO DAILY 2. METHOCARBAMOL 750MG PO TID PRN PAIN/MUSCLE SPASMS 3. OXYCODONE 2.5-5MG Q6H PRN PAIN The patient's discharge medication list was reviewed for discrepancies and discrepancies were resolved. The patient was counseled on the following discharge medications and changes in medications for homegoing were reviewed. The Reason for Use, instructions for use, and potential side effects were reviewed for all new medications. The patient's questions regarding all of their medications were answered. The patient was able to verbally demonstrate an understanding of their discharge medications. Medications at Discharge Home Medications alprazolam 2 mg tablet 2 mg PO BID PRN Anxiety 03/24/19 nebulizers (Altera Nebulizer System) #1 ea 09/06/20 fluticasone propionate 50 mcg/actuation nasal spray,suspension See Rx Instructions .Route PRN PRN Nasal Congestion #15.8 mL 11/16/21 blood-glucose meter (OneTouch Verio Flex Meter) #1 ea 11/27/21 blood sugar diagnostic (Blood Glucose Test strips) #50 ea 11/28/21 blood-glucose meter #1 ea 11/28/21 lancets 32 gauge #100 ea 11/28/21 lamotrigine 200 mg tablet 200 mg PO BID BIPOLAR 03/12/22 paroxetine HCl 30 mg tablet 30 mg PO DAILY BIPOLAR 05/08/22 ipratropium 0.5 mg-albuterol 3 mg (2.5 mg base)/3 mL nebulization soln 3 ml inhalation Q8H PRN shortness of breath or wheezing #90 mL 07/22/22 blood sugar diagnostic (OneTouch Verio test strips) #100 ea 08/28/22 ondansetron 4 mg disintegrating tablet 4 mg PO Q8H PRN nausea and vomiting #30 tabs 09/27/22 budesonide-formoterol HFA 160 mcg-4.5 mcg/actuation aerosol inhaler (Symbicort) 2 puff inhalation BID ASTHMA #10.2 grams 11/04/22 Ventolin HFA 90 mcg/actuation aerosol inhaler (albuterol sulfate) 2 puff inhalation Q6H PRN shortness of breath or wheezing #8 grams 12/09/22 empagliflozin 25 mg tablet (Jardiance) 25 mg PO QAM DM #30 tabs 08/25/23 aripiprazole 2 mg tablet 2 mg PO DAILY BIPOLAR 12/22/23 lisinopril 20 mg tablet 20 mg PO DAILY HTN 12/22/23 omeprazole 40 mg capsule,delayed release 20 mg PO DAILY GERD 12/22/23 rosuvastatin 10 mg tablet 10 mg PO QHS HLD 12/22/23 acetaminophen 500 mg tablet 500 mg PO Q6H 7 days #28 tabs 01/06/24 meloxicam 15 mg tablet 15 mg PO DAILY 30 days #30 tabs 01/06/24 methocarbamol 500 mg tablet 750 mg (1.5 x 500 mg) PO TID PRN pain/spasms 7 days #30 tabs 01/06/24 oxycodone 5 mg tablet 2.5 - 5 mg (0.5 - 1 x 5 mg) PO Q6H PRN pain 5 days #20 tabs 01/06/24
[2024-01-06] MEDS: oxyCODONE 5 MG Tablet PO (12:13)
--- NOTE | 2024-01-06 12:30 | CASEMGMT ---
TORIE MOCK updated surgeon regarding request for outpatient therapy. Script received. TORIE MOCK called [facility] and schedule outpatient therapy for 01/12/24 6030. TORIE MOCK updated patient and discharge plan. Script placed in discharge packet. Patient had no further questions or concerns.
[2024-01-06 12:41] LABS: Bedside Glucose 162 mg/dL (74-106)
--- NOTE | 2024-01-06 18:40 | PN.HOSP_ITS ---
Reason for Visit Reason for Visit: Diagnoses Type 2 diabetes mellitus with other specified complication (01/05/24) Nicotine dependence, unspecified, uncomplicated (01/05/24) Bipolar disorder, unspecified (01/05/24) Other chronic pain (01/05/24) Essential (primary) hypertension (01/05/24) Unspecified asthma, uncomplicated (01/05/24) Gastro-esophageal reflux disease without esophagitis (01/05/24) Dorsalgia, unspecified (01/05/24) Encounter for other preprocedural examination (01/05/24) Arthrodesis status (01/05/24) Subjective Subjective No acute events overnight. Patient seen at bedside this morning. Sitting comfortably in bedside chair, conversing normally, no acute distress. Patient was just about to work physical therapy when I came into the room. Stated she had already walked around the floor earlier this morning with assistance and had minimal back pain. Denies any other acute pain or discomfort. No other acute concerns at this time. Objective Data Objective Data Vital Signs: Vital Signs Temp Pulse Resp BP Pulse Ox O2 Del Method O2 Flow Rate 98.0 F 90 16 153/98 H 96 Room Air 2 01/06/24 07:49 01/06/24 07:49 01/06/24 07:49 01/06/24 07:49 01/06/24 07:49 01/06/24 07:49 01/05/24 23:49 Oxygen Flow Rate (L/min) 2 Oxygen Delivery Method Room Air Weight: 64.637 kg Body Mass Index (BMI) 25.2 Intake & Output: Intake and Output for Last 24 Hours 01/04/24 01/05/24 01/06/24 23:59 23:59 23:59 Intake Total 2695.5 / 2695.5 50 / 50 Output Total 625 / 625 Balance 2070.5 / 2070.5 50 / 50 Lab / Micro Data 01/06/24 06:34 01/06/24 06:34 Labs: Laboratory Results - last 24 hr 01/05/24 21:34: POC Glucose 209 H 01/06/24 05:55: POC Glucose 156 H 01/06/24 06:34: WBC 14.3 H, RBC 4.83, Hgb 14.1, Hct 42.9, MCV 88.8, MCH 29.2, MCHC 32.9, RDW Std Deviation 45.5 H, RDW Coeff of [place] 14.1, Plt Count 279, MPV 9.3, Immature Gran % (Auto) 0.400, Neut % (Auto) 72.8 H, Lymph % (Auto) 19.8, [place] % (Auto) 6.8, Eos % (Auto) 0.0, Baso % (Auto) 0.2, Absolute Neuts (auto) 10.4 H, Absolute Lymphs (auto) 2.84, Nucleated RBC % 0, Sodium 141, Potassium 3 .8, Chloride 111 H, Carbon Dioxide 25.0, Anion Gap 5, BUN 14, Creatinine 0.70, Estim Creat Clear Calc 78.27, Est GFR (MDRD) Af Amer 111, Est GFR (MDRD) Non-Af 92, BUN/Creatinine Ratio 20.1 H, Glucose 160 H, Calcium 9.0 01/06/24 11:56: POC Glucose 162 H Micro: Microbiology 12/26/23 14:06 Swab (Method) Nasal Screen MRSA/MSSA - Final Radiography Diagnostic Testing: Radiology Impression Lumbar Spine X-Ray 01/06/24 10:10 IMPRESSION: Status post interpedicular screw and jacky fixation at the L3-L4 and L4-L5 levels with prosthetic disc placement. Electronically Signed: Clayton Grimm MD at 10:47 EST , Physical Exam Const alert, oriented x3, no apparent distress and average body habitus General Appearance: cooperative and comfortable HEENT normocephalic, head/scalp atraumatic, hearing grossly normal bilaterally, nasal mucous membranes and turbinates normal and moist oral mucous membranes Eyes PERRL, EOMs intact bilaterally and conjunctivae normal Neck full ROM, no lymphadenopathy and supple Lymph Lymphatic: no lymphadenopathy noted Chest inspection of chest normal Resp normal respiratory effort, normal air movement, no use of accessory muscles and clear to auscultation bilaterally Cardio regular rate, regular rhythm, no murmurs and peripheral pulses 2+ throughout GI normal to inspection, nondistended, normoactive bowel sounds, soft to palpation, non-tender and non-distended Back/Spine Back/Spine Narrative: Good range of motion in low back. No tenderness noted on exam. Extremity normal to inspection, full ROM and no pedal edema Skin no rashes or lesions noted Neuro no focal motor deficits and no sensory deficits noted Speech: speech normal Psych mental status grossly normal Assessment & Plan Assessment/Plan (1) Status post lumbar spinal fusion: PLAN: Plan Patient is a 58-year-old female who presented to [facility] on 01/05/2024 for planned lumbar fusion procedure with orthopedics. Medicine consulted postoperatively for medical management. #L3-4 and L4-5 spondylolisthesis and disc degeneration with foraminal stenosis -underwent fusion and instrumentation with Dr. Murphy 01/05/2024 -PT/OT -Management per primary -Pain control # Bipolar disorder/anxiety -Continue Abilify, Lamictal, Paxil -Patient additionally has alprazolam as needed #GERD -Continue PPI # Hypertension -Takes lisinopril daily -This has been resumed # Asthma -Denies any shortness of breath at this time -Symbicort not on formulary, substituted for budesonide every 12 -Albuterol as needed #Tobacco use -Advise cessation -Nicotine replacement available if desired #Type 2 diabetes mellitus -Will change patient to [facility] glucose checks and sliding scale insulin -Hold home oral hypoglycemics Disposition: Patient stable for discharge from medicine standpoint. Total clinical time spent by myself addressing the patient's medical issues, reviewing all the data, and collaborating with patient's care team: 35 minutes. Charges/Coding Visit Charges Inpatient E&M: 57644 Subs Hosp L1
== END 2024-01-06 12:47 | disposition home or self-care (01) | DRG 304 ==
LOC: SDC 16:47 → AC 16:49 → MS3 16:51 → SDC 16:51
PROVIDERS: Anesthesiology; Admitting Provider Orthopaedic Surgery Orthopaedic Surgery of the Spine; PCP Internal Medicine; Referring Provider Orthopaedic Surgery Orthopaedic Surgery of the Spine; Visit Provider Orthopaedic Surgery Orthopaedic Surgery of the Spine
PROC: (CPT 22558; principal; 2024-01-05 08:45)
DX: M43.16 Spondylolisthesis, lumbar region (principal); F31.9 Bipolar disorder, unspecified; E11.40 Type 2 diabetes mellitus with diabetic neuropathy, unspecified; I10 Essential (primary) hypertension; J45.909 Unspecified asthma, uncomplicated; M48.061 Spinal stenosis, lumbar region without neurogenic claudication; E78.00 Pure hypercholesterolemia, unspecified; K21.9 Gastro-esophageal reflux disease without esophagitis; F17.210 Nicotine dependence, cigarettes, uncomplicated; G89.29 Other chronic pain; F41.0 Panic disorder [episodic paroxysmal anxiety]; Z79.84 Long term (current) use of oral hypoglycemic drugs; Z79.899 Other long term (current) drug therapy
CPT/HCPCS: 22558; 22585; 22853 ×2; 00670; 20930; 20936; 22612; 22842; 22614; J2405; 36415; 72100; 76000; 80048; 80076; 82962; 83036; 83735; 85025; 85610; 85730; 86703; 86706; 86708; 86803; 86850; 86900; 86901; 87081; 94640; 94668; 96365; 96366; 96375; 96376; 97162; 99221; 99406; C1713; J7120; A4216; G0378; J3475

== ENCOUNTER 2024-01-07 00:11 | Emergency (ER) | payer MEDICAID, SELFPAY ==
[2024-01-07] VITALS (11 sets, daily range): BP systolic 118–149; BP diastolic 87–125; PULSE 101–123; RESP 12–20; TEMP 36.7–36.9; O2SAT 92–99; BMI 26.1
--- OUTSIDE RECORDS SUMMARY | 2024-01-07 00:49 | XMS RPT_ITS | CCD ---
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 Name Role Phone Katerine Rocha LPN Unavailable Unavailab Katerine Mcginnis LPN Unavailable Unavailab NOLA Cartwright MD Primary Care Physician [phone] Vitalyy Christine JACKSON Unavailable Dheeraj Ceron MD Unavailable Nola Rodriguez MD Primary Care Provider [phone] Letha HEALTH ANALYTICS CONSULTANT.DIRECTOR OF RESTAURANTS, Fatuma Primary Care Provider [phone] LETHA, FATUMA Primary Care Unavailable LETHA, FATUMA Primary Care Unavailable LETHA, FATUMA Referring Unavailable LETHA, FATUMA Primary Care Unavailable LETHA, FATUMA Referring Unavailable LETHA, FATUMA Primary Care Unavailable LETHA, FATUMA Referring Unavailable LETHA, FATUMA Primary Care Unavailable LETHA, FATUMA Referring Unavailable KEVIN SORIANO Attending Unavailable LETHA, FATUMA Primary Care Unavailable BRITTNEE, AMNA Attending Unavailable LETHA, FATUMA Primary Care Unavailable LETHA, FATUMA Attending Unavailable LETHA, FATUMA Primary Care Unavailable LETHA, FATUMA Referring Unavailable LETHA, FATUMA Primary Care Unavailable LETHA, FATUMA Attending Unavailable LETHA, FATUMA Primary Care Unavailable BRITTNEE, AMNA Attending Unavailable LETHA, FATUMA Primary Care Unavailable LETHA, FATUMA Primary Care Unavailable LETHA, FATUMA Referring Unavailable LETHA, FATUMA Attending Unavailable LETHA, FATUMA Primary Care Unavailable LETHA, FATUMA Primary Care Unavailable LETHA, FATUMA Referring Unavailable LETHA, FATUMA Primary Care Unavailable LETHA, FATUMA Primary Care Unavailable LETHA, FATUMA Referring Unavailable LETHA, FATUMA Primary Care Unavailable LETHA, FATUMA Attending Unavailable LETHA, FATUMA Primary Care Unavailable LETHA, FATUMA Primary Care Unavailable DANIEL DOUGLAS Referring Unavailable LETHA, FATUMA Primary Care Unavailable LETHA, FATUMA Attending Unavailable LETHA, FATUMA Primary Care Unavailable BRITTNEE, ANMA Attending Unavailable LETHA, FATUMA Primary Care Unavailable LETHA, FATUMA Referring Unavailable LETHA, FATUMA Primary Care Unavailable BRITTNEE, AMNA Attending Unavailable LETHA, FATUMA Primary Care Unavailable BRITTNEE, AMNA Attending Unavailable LETHA, FATUMA Primary Care Unavailable LETHA, FATUMA Primary Care Unavailable LETHA, FATUMA Referring Unavailable LETHA, FATUMA Attending Unavailable LETHA, FATUMA Primary Care Unavailable Tamiko DIRECTOR OF RESTAURANTSChristine Unavailable Unavailable Allergies Allergy Classification Reported Allergen(s) Allergy Type Date of Onset Reaction(s) Facility (2 sources) SOME PAIN MEDS drug allergy 7 [facility] Work Phone: (20 sources) Acetaminophen / HYDROcodone; Translations: [acetaminophen-hy drocodone] Drug Allergy 7 Nausea and vomiting (disorder), Vomiting, GI Upset [facility] (1 source) Acetaminophen / oxyCODONE; Translations: [acetaminophen-ox ycodone] Drug Allergy Nausea and vomiting (disorder) [facility] (20 sources) gabapentin; Translations: [gabapentin] Drug Allergy 8 Hives, Unknown [facility] (20 sources) Ketorolac; Translations: [ketorolac] Drug Allergy 7 Unknown, Intolerance, Other: See Comments [facility] (20 sources) Metoclopramide; Translations: [metoclopramide] Drug Allergy 9 Other: See Comments, Hives [facility] (20 sources) Morphine; Translations: [morphine] Drug Allergy 6 Mental Status Change [facility] (1 source) Prochlorperazine; Translations: [prochlorperazine ] Drug Allergy [facility] (1 source) traMADol; Translations: [tramadol] Drug Allergy [facility] (20 sources) Albuterol; Translations: [ALBUTEROL SULFATE] Drug Allergy 2 Other: See Comments [facility] Work Phone: (20 sources) Amitriptyline; Translations: [AMITRIPTYLINE] Drug Allergy 8 GI Upset, Vomiting [facility] Work Phone: (20 sources) Carbidopa / Levodopa; Translations: [CARBIDOPA-LEVODO PA] Drug Allergy 9 [facility] Work Phone: (20 sources) Codeine; Translations: [CODEINE] Drug Allergy 5 GI Upset [facility] Work Phone: (20 sources) cyclobenzaprine; Translations: [CYCLOBENZAPRINE HCL] Drug Allergy 3 Other: See Comments [facility] Work Phone: [phone] (20 sources) Etodolac; Translations: [ETODOLAC] Drug Allergy 8 GI Upset, Other: See Comments [facility] Work Phone: [phone] (20 sources) Latex; Translations: [LATEX] Propensity to adverse reactions 9 Rash [facility] (20 sources) Naproxen; Translations: [NAPROXEN] Drug Allergy 1 GI Upset [facility] (20 sources) QUEtiapine; Translations: [QUETIAPINE FUMARATE] Drug Allergy 7 [facility] Work Phone: (20 sources) Salicylate product; Translations: [SALICYLATES] Propensity to adverse reactions 5 GI Upset [facility] Work Phone: [phone] (20 sources) traMADol; Translations: [TRAMADOL HCL] Drug Allergy 7 Mental Status Change [facility] (20 sources) Propoxyphene N-Acetaminophen; Translations: [PROPOXYPHENE N-ACETAMINOPHEN] Propensity to adverse reactions 8 GI Upset [facility] Work Phone: [phone] (20 sources) Contrast media; Translations: [RED DYE] Drug Allergy 0 Swelling [facility] Work Phone: [phone] (20 sources) metFORMIN; Translations: [METFORMIN] Drug Allergy 9 Diarrhea [facility] Work Phone: (20 sources) Propoxyphene; Translations: [PROPOXYPHENE] Drug Allergy 7 Vomiting [facility] Work Phone: (20 sources) topiramate; Translations: [TOPIRAMATE] Drug Allergy 8 Hives [facility] Work Phone: (20 sources) Aspirin; Translations: [ASPIRIN] Drug Allergy 7 GI Upset [facility] Work Phone: (1 source) Acetaminophen / HYDROcodone; Translations: [HYDROCODONE-ACET AMINOPHEN] Drug Allergy 7 [facility] Repository Medications Current Medications Medication Drug Class(es) Dates Sig (Normalized) Sig (Original) clindamycin 20 mg/ml vaginal cream (3 sources) Lincosamide Antibacterial Start: 02-04-2023 End: 02-11-2023 clindamycin phosphate 2 % vaginal cream Use 1 Applicatorful vaginally daily at bedtime for 7 days. 40 g 0 02/04/2023 02/11/2023 /2014 Nausea with vomiting 03/09/2015 03/09/2015 Uncontrolled type [...] No response to [facility] as of 04-08 [place] rec EGD and Colon in 05-09: H pylori negative in 05-09 [place] noted sigmoid stricture by Colonoscopy in 05-09: [...] of this encounter (statuses as of 12/25/2022) [facility] History of Past illness Narrative* Problem Noted [...] No response to [facility] as of 04-08 [place] rec EGD and Colon in 05-09: H pylori negative in 05-09 [place] noted sigmoid stricture by Colonoscopy in 05-09: [...] of this encounter (statuses as of 12/27/2022) [facility] of Past illness Narrative* Problem Noted [...] No response to [facility] as of 04-08 [place] rec EGD and Colon in 05-09: H [...] of this encounter (statuses as of 01/02/2023) [facility] of Past illness Narrative* Problem Noted [...] No response to [facility] as of 04-08 [place] rec EGD and Colon in 05-09: H [...] of this encounter (statuses as of 01/10/2023) [facility] of Past illness Narrative* Problem Noted [...] No response to [facility] as of 04-08 [place] rec EGD and Colon in 05-09: H pylori negative in 05-09 [place] noted sigmoid stricture by Colonoscopy in 05-09: [...] of this encounter (statuses as of 01/17/2023) [facility] of Past illness Narrative* Problem Noted [...] No response to [facility] as of 04-08 [place] rec EGD and Colon in 05-09: H pylori negative in 05-09 [place] noted sigmoid stricture by Colonoscopy in 05-09: [...] of this encounter (statuses as of 01/21/2023) [facility] of Past illness Narrative* Problem Noted [...] of this encounter (statuses as of 01/23/2023) [facility] of Past illness Narrative* Problem Noted [...] No response to [facility] as of 04-08 [place] rec EGD and Colon in 05-09: H pylori negative in 05-09 [place] noted sigmoid stricture by Colonoscopy in 05-09: [...] of this encounter (statuses as of 01/24/2023) [facility] History of Past illness Narrative* Problem Noted [...] No response to [facility] as of 04-08 [place] rec EGD and Colon in 05-09: H [...] of this encounter (statuses as of 01/24/2023) [facility] of Past illness Narrative* Problem Noted [...] No response to [facility] as of 04-08 [place] rec EGD and Colon in 05-09: H pylori negative in 05-09 [place] noted sigmoid stricture by Colonoscopy in 05-09: [...] of this encounter (statuses as of 02/04/2023) [facility] of Past illness Narrative* Problem Noted [...] in 05-09: H pylori negative in 05-09 [place] noted sigmoid stricture by Colonoscopy in 05-09: [...] of this encounter (statuses as of 02/07/2023) [facility] of Past illness Narrative* Problem Noted [...] No response to [facility] as of 04-08 [place] rec EGD and Colon in 05-09: H [...] of this encounter (statuses as of 02/08/2023) [facility] of Past illness Narrative* Problem Noted [...] in 05-09: H pylori negative in 05-09 [place] noted sigmoid stricture by Colonoscopy in 05-09: [...] of this encounter (statuses as of 02/28/2023) [facility] of Past illness Narrative* Problem Noted [...] No response to [facility] as of 04-08 [place] rec EGD and Colon in 05-09: H pylori negative in 05-09 [place] noted sigmoid stricture by Colonoscopy in 05-09: [...] of this encounter (statuses as of 03/07/2023) [facility] of Past illness Narrative* Problem Noted [...] in 05-09: H pylori negative in 05-09 [place] noted sigmoid stricture by Colonoscopy in 05-09: [...] of this encounter (statuses as of 03/12/2023) [facility] of Past illness Narrative* Problem Noted [...] in 05-09: H pylori negative in 05-09 [place] noted sigmoid stricture by Colonoscopy in 05-09: [...] of this encounter (statuses as of 03/28/2023) [facility] of Past illness Narrative* Problem Noted [...] No response to [facility] as of 04-08 [place] rec EGD and Colon in 05-09: H pylori negative in 05-09 [place] noted sigmoid stricture by Colonoscopy in 05-09: [...] of this encounter (statuses as of 03/31/2023) [facility] of Past illness Narrative* Problem Noted [...] No response to [facility] as of 04-08 [place] rec EGD and Colon in 05-09: H [...] of this encounter (statuses as of 04/01/2023) [facility] of Past illness Narrative* Problem Noted [...] No response to [facility] as of 04-08 [place] rec EGD and Colon in 05-09: H [...] of this encounter (statuses as of 04/05/2023) [facility] of Past illness Narrative* Problem Noted [...] No response to [facility] as of 04-08 [place] rec EGD and Colon in 05-09: H pylori negative in 05-09 [place] noted sigmoid stricture by Colonoscopy in 05-09: [...] of this encounter (statuses as of 04/06/2023) [facility] of Past illness Narrative* Problem Noted [...] of this encounter (statuses as of 04/07/2023) [facility] of Past illness Narrative* Problem Noted [...] in 05-09: H pylori negative in 05-09 [place] noted sigmoid stricture by Colonoscopy in 05-09: [...] of this encounter (statuses as of 05/20/2023) [facility] of Past illness Narrative* Problem Noted [...] in 05-09: H pylori negative in 05-09 [place] noted sigmoid stricture by Colonoscopy in 05-09: [...] of this encounter (statuses as of 06/05/2023) [facility] of Past illness Narrative* Problem Noted [...] in 05-09: H pylori negative in 05-09 [place] noted sigmoid stricture by Colonoscopy in 05-09: [...] of this encounter (statuses as of 06/13/2023) [facility] illness Narrative* Problem Noted [...] of this encounter (statuses as of 06/26/2023) [facility] Past illness Narrative* Problem Noted [...] No response to [facility] as of 04-08 [place] rec EGD and Colon in 05-09: H pylori negative in 05-09 [place] noted sigmoid stricture by Colonoscopy in 05-09: [...] of this encounter (statuses as of 07/05/2023) [facility] of Past illness Narrative* Problem Noted [...] No response to [facility] as of 04-08 [place] rec EGD and Colon in 05-09: H pylori negative in 05-09 [place] noted sigmoid stricture by Colonoscopy in 05-09: rec sigmoid colectomy Colon biopsy with a single area of cryptitis as of 05-09: otherwise completely normal so not likely IBD CT -: no mass lesion Anemia, unspecified 03/22/2009 08/15/20 16 Overview: Hct 35%, MCV 79 in 4-, 35%/76 in 5-09, 36%/76 in 6-, 36%/76 in 8-, 42% in 09-08 Iron 20, Ferritin 7.4 [...] of this encounter (statuses as of 07/15/2023) [facility] Past illness Narrative* Problem Noted [...] of this encounter (statuses as of 07/18/2023) [facility] of Past illness Narrative* Problem Noted [...] in 05-09: H pylori negative in 05-09 [place] noted sigmoid stricture by Colonoscopy in 05-09: rec sigmoid colectomy Colon biopsy with a single area of cryptitis as of 05-09: otherwise completely normal so not likely IBD CT 6-09: no mass lesion Anemia, unspecified 03/22/2009 08/15/20 [...] of this encounter (statuses as of 07/18/2023) [facility] Narrative* Problem Noted [...] of this encounter (statuses as of 07/21/2023) [facility] illness Narrative* Problem Noted [...] No response to [facility] as of 04-08 [place] rec EGD and Colon in 05-09: H pylori negative in 05-09 [place] noted sigmoid stricture by Colonoscopy in 05-09: rec sigmoid colectomy Colon biopsy with a single area of cryptitis as of 05-09: otherwise completely normal so not likely IBD CT 05-09: no mass lesion Anemia, unspecified 03/22/2009 08/15/20 16 Overview: Hct 35%, MCV 79 in 4-, 35%/76 in 5-09, 36%/76 in 6-09, 36%/76 in 8-, 42% in 09-08 Iron 20, Ferritin 7.4 in 8- (elevated [...] of this encounter (statuses as of 07/22/2023) [facility] Past illness Narrative* Problem Noted [...] No response to [facility] as of 04-08 [place] rec EGD and Colon in 05-09: H pylori negative in 05-09 [place] noted sigmoid stricture by Colonoscopy in 05-09: rec sigmoid colectomy Colon biopsy with a single area of cryptitis as of 05-09: otherwise completely normal so not likely IBD CT 05-09: no mass lesion Anemia, unspecified 03/22/2009 08/15/20 16 Overview: Hct 35%, MCV 79 in 4-, 35%/76 in 5-09, 36%/76 in 6-, 36%/76 in 8-, 42% in 09-08 Iron 20, Ferritin 7.4 in 8- (elevated [...] of this encounter (statuses as of 08/05/2023) [facility] Past illness Narrative* Problem Noted [...] in 05-09: H pylori negative in 05-09 [place] noted sigmoid stricture by Colonoscopy in 05-09: [...] of this encounter (statuses as of 08/06/2023) [facility] of Past illness Narrative* Problem Noted [...] in 05-09: H pylori negative in 05-09 [place] noted sigmoid stricture by Colonoscopy in 05-09: rec sigmoid colectomy Colon biopsy with a single area of cryptitis as of 05-09: otherwise completely normal so not likely IBD CT 05-09: no mass lesion Anemia, unspecified 03/22/2009 08/15/20 16 Overview: Hct 35%, MCV 79 in 4-09, 35%/76 in 5-09, 36%/76 in 6-09, 36%/76 in 8-, 42% in 09-08 Iron 20, Ferritin 7.4 in 8- (elevated [...] of this encounter (statuses as of 08/06/2023) [facility] of Past illness Narrative* Problem Noted [...] No response to [facility] as of 04-08 [place] rec EGD and Colon in 05-09: H [...] in 6-09, 36%/76 in 8-, 42% in 09-08 Iron 20, Ferritin 7.4 in 8- (elevated TIBC), 42/11 in -: completed course of supplemental iron UA negative [...] of this encounter (statuses as of 09/11/2023) [facility] of Past illness Narrative* Problem Noted [...] No response to [facility] as of 04-08 [place] rec EGD and Colon in 05-09: H pylori negative in 05-09 [place] noted sigmoid stricture by Colonoscopy in 05-09: rec sigmoid colectomy Colon biopsy with a single area of cryptitis as of 05-09: otherwise completely normal so not likely IBD CT 05-09: no mass lesion Anemia, unspecified 03/22/2009 08/15/20 16 Overview: Hct 35%, MCV 79 in 4-09, 35%/76 in 5-09, 36%/76 in 6-09, 36%/76 in 8-, 42% in 09-08 Iron 20, Ferritin 7.4 [...] of this encounter (statuses as of 09/26/2023) [facility] Past illness Narrative* Problem Noted [...] No response to [facility] as of 04-08 [place] rec EGD and Colon in 05-09: H [...] of this encounter (statuses as of 10/01/2023) [facility] illness Narrative* Problem Noted [...] No response to [facility] as of 04-08 [place] rec EGD and Colon in 05-09: H pylori negative in 05-09 [place] noted sigmoid stricture by Colonoscopy in 05-09: rec sigmoid colectomy Colon biopsy with a single area of cryptitis as of 05-09: otherwise completely normal so not likely IBD CT 05-09: no mass lesion Anemia, unspecified 03/22/2009 08/15/20 16 Overview: Hct 35%, MCV 79 in 03-09, 35%/76 in 04-08, 36%/76 in 6-09, 36%/76 in 8-, 42% in - Iron 20, Ferritin 7.4 in - (elevated [...] of this encounter (statuses as of 10/04/2023) [facility] Narrative* Problem Noted [...] in 05-09: H pylori negative in 05-09 [place] noted sigmoid stricture by Colonoscopy in 05-09: [...] of this encounter (statuses as of 10/07/2023) [facility] illness Narrative* Problem Noted [...] of this encounter (statuses as of 10/07/2023) [facility] illness Narrative* Problem Noted [...] No response to [facility] as of 04-08 [place] rec EGD and Colon in 05-09: H pylori negative in 05-09 [place] noted sigmoid stricture by Colonoscopy in 05-09: [...] of this encounter (statuses as of 10/13/2023) [facility] Narrative* Problem Noted [...] in 05-09: H pylori negative in 05-09 [place] noted sigmoid stricture by Colonoscopy in 05-09: rec sigmoid colectomy Colon biopsy with a single area of cryptitis as of 05-09: otherwise completely normal so not likely IBD CT 05-09: no mass lesion Anemia, unspecified 03/22/2009 08/15/20 16 Overview: Hct 35%, MCV 79 in 03-09, 35%/76 in 04-08, 36%/76 in 05-09, 36%/76 in 07-09, 42% in 10-09 Iron 20, Ferritin 7.4 in 8- (elevated TIBC), 42/11 in 10-09: completed course [...] of this encounter (statuses as of 10/13/2023) [facility] Past illness Narrative* Problem Noted [...] No response to [facility] as of 04-08 [place] rec EGD and Colon in 05-09: H [...] blood in 07-09 stool cards negative in - Pain in [...] of this encounter (statuses as of 10/27/2023) [facility] Narrative* Problem Noted [...] 7.4 in 07-09 (elevated TIBC), 42/11 in 10: completed course of supplemental iron UA negative [...] of this encounter (statuses as of 10/27/2023) [facility] Narrative* Problem Noted [...] in 05-09: H pylori negative in 05-09 [place] noted sigmoid stricture by Colonoscopy in 05-09: [...] of this encounter (statuses as of 10/31/2023) [facility] Narrative* Problem Noted [...] of this encounter (statuses as of 11/07/2023) [facility] Narrative* Problem Noted [...] of this encounter (statuses as of 01/02/2024) [facility] Narrative* Problem Noted [...] in 05-09: H pylori negative in 05-09 [place] noted sigmoid stricture by Colonoscopy in 05-09: [...] of this encounter (statuses as of 12/04/2022) [facility] Narrative* Problem Noted [...] in 05-09: H pylori negative in 05-09 [place] noted sigmoid stricture by Colonoscopy in 05-09: [...] of this encounter (statuses as of 12/16/2022) [facility] Narrative* Problem Noted [...] 06/02/2014 Overview: Han gave pt Bactrim in 6-09 for her sinuses SLEEP APNEA NOS 04/04/2009 [...] No response to [facility] as of 04-08 [place] rec EGD and Colon in 05-09: H [...] of this encounter (statuses as of 12/17/2022) [facility] Narrative* Problem Noted [...] No response to [facility] as of 04-08 [place] rec EGD and Colon in 05-09: H [...] of this encounter (statuses as of 12/20/2022) [facility] No data available for this section [facility] Evaluation note* Diagnosis Vaginal irritation- Primary Unspecified noninflammatory disorder of vagina Genital warts Condyloma acuminatum [facility] Vulvar irritation- Primary Other specified noninflammatory disorder of vulva and perineum [facility] Diagnosis Hypertension goal BP (blood pressure) < 140/90- Primary Unspecified essential hypertension Hyperlipidemia, unspecified hyperlipidemia type Tobacco use disorder Moderate persistent asthma without complication Unspecified asthma JOHNNY on CPAP Obstructive sleep apnea (adult) (pediatric) Irritable bowel syndrome with both constipation and diarrhea Controlled type 2 diabetes mellitus without complication, unspecified whether [facility] insulin use (HCC) Severe anxiety with panic [...] for seeking consultation documented in this encounter [facility]* Diagnosis Chronic low back pain with sciatica, sciatica laterality unspecified, unspecified back pain laterality- Primary Hypertension goal BP (blood pressure) < 140/90 Unspecified essential hypertension Controlled type 2 diabetes mellitus without complication, unspecified whether [facility] insulin use (HCC) Moderate persistent asthma without complication Unspecified asthma Tobacco use disorder Abnormal mammogram Abnormal mammogram, unspecified Hyperlipidemia, unspecified hyperlipidemia type documented in this encounter [facility] note* Diagnosis Bacterial vaginitis- Primary Vaginitis and vulvovaginitis, unspecified documented in this encounter [facility] note* Diagnosis Bacterial vaginal infection- Primary Vaginitis and vulvovaginitis, unspecified Resistance to other single specified antibiotic documented in this encounter [facility] note* Diagnosis URI, acute- Primary Acute upper respiratory infections of unspecified site Sore throat Acute pharyngitis documented in this encounter [facility] note* Diagnosis Chronic low back pain with sciatica, sciatica laterality unspecified, unspecified back pain laterality- Primary Chronic pain syndrome Arthralgia, unspecified joint Hypertension goal BP (blood pressure) < 140/90 Unspecified essential hypertension documented in this encounter [facility] [facility] note* Diagnosis URI, acute- Primary Acute upper respiratory infections of unspecified site Sore throat Acute pharyngitis documented in this encounter [facility] Diagnosis URI, acute- Primary Acute upper respiratory infections of unspecified site documented in this encounter [facility]* Diagnosis Encounter for therapeutic drug monitoring- Primary documented in this encounter [facility]* Diagnosis URI, acute- Primary Acute upper respiratory infections of unspecified site Rhonchi at right lung base History of asthma Personal history of other diseases of respiratory system documented in this encounter [facility]* Diagnosis Sinobronchitis- Primary Unspecified sinusitis (chronic) Mouth pain Other and unspecified diseases of the oral soft tissues documented in this encounter [facility]* Diagnosis Encounter for therapeutic drug monitoring- Primary Controlled type 2 diabetes mellitus without complication, unspecified whether terminal gauger insulin use (HCC) Hyperlipidemia, unspecified hyperlipidemia type documented in this encounter [facility]* Diagnosis Encounter for screening mammogram for breast cancer [facility] Diagnosis Chronic low back pain with sciatica, sciatica laterality unspecified, unspecified back pain laterality- Primary Chronic pain syndrome Controlled type 2 diabetes mellitus without complication, without long-term current use of insulin (HCC) Mixed hyperlipidemia Moderate persistent asthma without complication Unspecified asthma Encounter for immunization Need for other specified prophylactic vaccination against single bacterial disease documented in this encounter [facility]* Diagnosis Chronic bilateral low back pain with left-sided sciatica- Primary Chronic pain syndrome Radiculopathy of lumbar region Thoracic or lumbosacral neuritis or radiculitis, unspecified documented in this encounter [facility] Discharge instructions No data available for this section [facility] Progress note No data available for this section [facility] Reason for referral (narrative)* Diagnostic Procedure Only (Routine) - Authorized Specialty Diagnoses / Procedures Referred By Daniela mayo Referred To Contact [facility] Diagnoses Encounter for screening mammogram for breast cancer Procedures MANSOOR SCREENING SCREENING MAMMOGRAPHY BI 2-VIEW BREAST INC CAD Fatuma Monae APRN.CNP [address] [place] [address] [facility] [address] [place] [address] Referral ID Status Reason Start Date Expiration Date Visits Requested Visits Authorized [id number] Authorized Auto-Generat ed Referral 12/23/2022 01/22/2024 1 1 ON [facility] for referral (narrative)* Diagnostic Procedure Only (Routine) - Pending Review Specialty Diagnoses / Procedures Referred By Daniela t Referred To Contact [facility] Diagnoses Abnormal mammogram Procedures US BREAST LTD RT US BREAST UNI REAL TIME WITH IMAGE LIMITED Fatuma Monae APRN.CNP [address] [place] [address] [facility] [address] [place] [address] Referral ID Status Reason Start Date Expiration Date Visits Requested Visits Authorized [id number] Pending Review Auto-Generat ed Referral 01/21/2023 02/20/2024 1 1 * Diagnostic Procedure Only (Routine) - Authorized Specialty Diagnoses / Procedures Referred By Daniela t Referred To Contact [facility] Diagnoses Abnormal mammogram Procedures MANSOOR DIAGNOSTIC RT DIAGNOSTIC MAMMOGRAPHY COMPUTER-AIDED DETCJ UNI Fatuma Monae APRN.CNP [address] [place] [address] [facility] [address] [place] [phone] Referral ID Status Reason Start Date Expiration Date Visits Requested Visits Authorized [id number] Authorized Auto-Generat ed Referral 01/21/2023 11/30/2023 1 1 * Outpatient Procedure (Routine) - Authorized Specialty Diagnoses / Procedures Referred By Daniela mayo Referred [facility] Diagnoses Moderate persistent asthma without complication Tobacco use disorder Procedures SPIROMETRY - BASELINE AND POST DILATOR BRNCDILAT RSPSE SPMTRY PRE&POST-BRNCDILAT ADMN Fatuma Monae APRN.[employer] [address] [place] [address] [facility] [address] [place] [id number] Referral ID Status Reason Start Date Expiration Date Visits Requested Visits Authorized [id number] Authorized Auto-Generat ed Referral 01/21/2023 02/20/2024 1 1 * MRI/CT (Routine) - Pending Review Specialty Diagnoses / Procedures Referred By Daniela t Referred To Contact CT IMAGING Diagnoses Moderate persistent asthma without complication Tobacco use disorder Procedures CT CHEST WO IVCON DIAGNOSTIC COMPUTED TOMOGRAPHY THORAX W/O CNTRST Fatuma Monae APRN.[employer] [address] [place] [address] Ct [facility] Referral ID Status Reason Start Date Expiration Date Visits Requested Visits Authorized [id number] Pending Review Auto-Generat ed Referral 01/21/2023 02/20/2024 1 1 * Consult, Test, Treat (Routine) - Authorized Specialty Diagnoses / Procedures Referred By Daniela t Referred To Contact Ophthalmology Diagnoses Controlled type 2 diabetes mellitus without complication, unspecified whether terminal gauger insulin use (HCC) Procedures CONSULT TO OPHTHALMOLOGY OFFICE/OUTPATIENT NEW HIGH MDM 60-74 MINUTES Fatuma Monae APRN.CNP [address] [place] [address] Referral ID Status Reason Start Date Expiration Date Visits Requested Visits Authorized [id number] Authorized PCP Requested Referral 01/21/2023 01/21/2024 1 1 [facility] for referral (narrative)* Diagnostic Procedure Only (Routine) - Closed Specialty Diagnoses / Procedures Referred By Daniela mayo Referred To Contact [facility] Diagnoses Encounter for screening mammogram for breast cancer Procedures MANSOOR SCREENING SCREENING MAMMOGRAPHY BI 2-VIEW BREAST INC CAD Fatuma Monae APRN.CNP [address] [place] [id number] [facility] [address] [place] [address] Referral ID Status Reason Start Date Expiration Date V isits Requested Visits Authorized [id number] Closed Auto-Generate d Referral 12/23/2022 01/22/2024 1 1 [facility] for visit Narrative* Diagnostic Procedure Only (Routine) - Closed Specialty Diagnoses / Procedures Referred By Daniela t Referred To Contact [facility] Diagnoses Encounter for screening mammogram for breast cancer Procedures MANSOOR SCREENING SCREENING MAMMOGRAPHY BI 2-VIEW BREAST INC CAD Fatuma Monae APRN.CNP [address] [place] [address] [facility] [address] [place] [address] Referral ID Status Reason Start Date Expiration Date V isits Requested Visits Authorized [id number] Closed Auto-Generate d Referral 12/23/2022 01/22/2024 1 1 [facility] Summary Purpose Family History No Family History [...] CONSULT TO [facility] NON-PHARMACOLOGIC PAIN MANAGEMENT OFFICE/OUTPATIENT [facility] 60-74 MINUTES Fatuma Monae APRN.[employer] [address] [place] [address] Referral ID Status Reason Start Date Expiration Date Visits Requested Visits Authorized [id number] Authorized PCP Requested Referral 10/31/2023 10/30/2024 1 1 Specialty Diagnoses / Procedures Referred By Contac t Referred To Contact [facility] Diagnoses Chronic bilateral low back pain with left-sided sciatica Chronic pain syndrome Radiculopathy of lumbar region Procedures MRI LUMBAR SPINE WO IVC MRI SPINAL CANAL LUMBAR W/O CONTRAST MATERIAL Fatuma Monae APRN.[employer] [address] [place] [address] [facility] [place] [address] Referral ID Status Reason Start Date Expiration Date Visits Requested Visits Authorized [id number] Pending Review Auto-Generat ed Referral 10/31/2023 11/29/2024 1 1 Specialty Diagnoses / Procedures Referred By Contac t Referred To Contact Diagnoses Chronic low back pain with sciatica, sciatica laterality unspecified, unspecified back pain laterality Procedures CONSULT TO [facility] NON-PHARMACOLOGIC PAIN MANAGEMENT OFFICE/OUTPATIENT [facility] 60-74 MINUTES Fatuma Monae APRN.[employer] [address] [place] [address] Referral ID Status Reason Start Date Expiration Date Visits Requested Visits Authorized [id number] Authorized PCP Requested Referral 03/28/2023 03/27/2024 1 1 Specialty Diagnoses / Procedures Referred By Contac t Referred To Contact Diagnoses Bacterial vaginal infection Resistance to other single specified antibiotic Amna Hooker APRN.[employer] [address] [place] [address] Referral ID Status Reason Start Date Expiration Date Visits Re quested Visits Authorized [id number] Closed 1 1 Specialty Diagnoses / Procedures Referred By Contac t Referred To Contact Fatuma Monae APRN.[employer] [address] [place] [address] Referral ID Status Reason Start Date Expiration Date Visits Re quested Visits Authorized [id number] Closed 1 1 Health Concerns Infection Onset Date Last Indicated Resolved Time COVID-19 Rule-Out 02/07/2023 02/07/2023 Infection Onset Date Last Indicated Resolved Time COVID-19 Rule-Out 04/05/2023 04/05/2023 Additional Source Comments INFORMATION SOURCE (unrecogn ized section and content) DATE CREATED AUTHOR AUTHOR'S ORGANIZ ATION 12/28/2023 [facility] DATE CREATED AUTHOR AUTHOR'S ORGANIZ ATION 01/04/2024 [facility] Care Team (unrecognized sect ion and content) Care Team Personnel Name: NOLA RODRIGUEZ MD Member Role: Primary Care Physician Address: Address: [address] [place], [place] [id number] Care Team Related Persons Name: SAM ZAMBRANO Name: AMARA HOLMAN Name: RIVER, AMARA Name: AMARA HOLMAN Name: AMARA HOLMAN Name: RIVER, AMARA Name: RIVER, AMARA Name: AMARA HOLMAN Source Comments (unrecognize d section and content) In the event this informatio n is protected by the Federal Confidentiality of Alcohol and Drug Abuse Patient Records regulations: The Federal rules restrict any use of the information to criminally investigate or prosecute any alcohol or drug abuse patient.[facility] the event this information is protected by the Federal Confidentiality of Alcohol and Drug Abuse Patient Records regulations: The Federal rules restrict any use of the information to criminally investigate or prosecute any alcohol or drug abuse patient.[facility] the event this information is protected by the Federal Confidentiality of Alcohol and Drug Abuse Patient Records regulations: The Federal rules restrict any use of the information to criminally investigate or prosecute any alcohol or drug abuse patient.[facility] the event this information is protected by the Federal Confidentiality of Alcohol and Drug Abuse Patient Records regulations: The Federal rules restrict any use of the information to criminally investigate or prosecute any alcohol or drug abuse patient.[facility] the event this information is protected by the Federal Confidentiality of Alcohol and Drug Abuse Patient Records regulations: The Federal rules restrict any use of the information to criminally investigate or prosecute any alcohol or drug abuse patient.[facility] the event this information is protected by the Federal Confidentiality of Alcohol and Drug Abuse Patient Records regulations: The Federal rules restrict any use of the information to criminally investigate or prosecute any alcohol or drug abuse patient.[facility] the event this information is protected by the Federal Confidentiality of Alcohol and Drug Abuse Patient Records regulations: The Federal rules restrict any use of the information to criminally investigate or prosecute any alcohol or drug abuse patient.[facility] the event this information is protected by the Federal Confidentiality of Alcohol and Drug Abuse Patient Records regulations: The Federal rules restrict any use of the information to criminally investigate or prosecute any alcohol or drug abuse patient.[facility] the event this information is protected by the Federal Confidentiality of Alcohol and Drug Abuse Patient Records regulations: The Federal rules restrict any use of the information to criminally investigate or prosecute any alcohol or drug abuse patient.[facility] the event this information is protected by the Federal Confidentiality of Alcohol and Drug Abuse Patient Records regulations: The Federal rules restrict any use of the information to criminally investigate or prosecute any alcohol or drug abuse patient.[facility] the event this information is protected by the Federal Confidentiality of Alcohol and Drug Abuse Patient Records regulations: The Federal rules restrict any use of the information to criminally investigate or prosecute any alcohol or drug abuse patient.[facility] Center[facility] the event this information is protected by the Federal Confidentiality of Alcohol and Drug Abuse Patient Records regulations: The Federal rules restrict any use of the information to criminally investigate or prosecute any alcohol or drug abuse patient.[facility] Center[facility] the event this information is protected by the Federal Confidentiality of Alcohol and Drug Abuse Patient Records regulations: The Federal rules restrict any use of the information to criminally investigate or prosecute any alcohol or drug abuse patient.[facility] Center[facility] the event this information is protected by the Federal Confidentiality of Alcohol and Drug Abuse Patient Records regulations: The Federal rules restrict any use of the information to criminally investigate or prosecute any alcohol or drug abuse patient.[facility] Center[facility] the event this information is protected by the Federal Confidentiality of Alcohol and Drug Abuse Patient Records regulations: The Federal rules restrict any use of the information to criminally investigate or prosecute any alcohol or drug abuse patient.[facility] Center[facility] the event this information is protected by the Federal Confidentiality of Alcohol and Drug Abuse Patient Records regulations: The Federal rules restrict any use of the information to criminally investigate or prosecute any alcohol or drug abuse patient.[facility] Center[facility] the event this information is protected by the Federal Confidentiality of Alcohol and Drug Abuse Patient Records regulations: The Federal rules restrict any use of the information to criminally investigate or prosecute any alcohol or drug abuse patient.[facility] CenterIn the event this information is protected by the Federal Confidentiality of Alcohol and Drug Abuse Patient Records regulations: The Federal rules restrict any use of the information to criminally investigate or prosecute any alcohol or drug abuse patient.[facility] CenterIn the event this information is protected by the Federal Confidentiality of Alcohol and Drug Abuse Patient Records regulations: The Federal rules restrict any use of the information to criminally investigate or prosecute any alcohol or drug abuse patient.[facility] CenterIn the event this information is protected by the Federal Confidentiality of Alcohol and Drug Abuse Patient Records regulations: The Federal rules restrict any use of the information to criminally investigate or prosecute any alcohol or drug abuse patient.[facility] Center[facility] the event this information is protected by the Federal Confidentiality of Alcohol and Drug Abuse Patient Records regulations: The Federal rules restrict any use of the information to criminally investigate or prosecute any alcohol or drug abuse patient.[facility] Center[facility] the event this information is protected by the Federal Confidentiality of Alcohol and Drug Abuse Patient Records regulations: The Federal rules restrict any use of the information to criminally investigate or prosecute any alcohol or drug abuse patient.[facility] Center[facility] the event this information is protected by the Federal Confidentiality of Alcohol and Drug Abuse Patient Records regulations: The Federal rules restrict any use of the information to criminally investigate or prosecute any alcohol or drug abuse patient.[facility] CenterIn the event this information is protected by the Federal Confidentiality of Alcohol and Drug Abuse Patient Records regulations: The Federal rules restrict any use of the information to criminally investigate or prosecute any alcohol or drug abuse patient.[facility] CenterIn the event this information is protected by the Federal Confidentiality of Alcohol and Drug Abuse Patient Records regulations: The Federal rules restrict any use of the information to criminally investigate or prosecute any alcohol or drug abuse patient.[facility] CenterIn the event this information is protected by the Federal Confidentiality of Alcohol and Drug Abuse Patient Records regulations: The Federal rules restrict any use of the information to criminally investigate or prosecute any alcohol or drug abuse patient.[facility] CenterIn the event this information is protected by the Federal Confidentiality of Alcohol and Drug Abuse Patient Records regulations: The Federal rules restrict any use of the information to criminally investigate or prosecute any alcohol or drug abuse patient.[facility] CenterIn the event this information is protected by the Federal Confidentiality of Alcohol and Drug Abuse Patient Records regulations: The Federal rules restrict any use of the information to criminally investigate or prosecute any alcohol or drug abuse patient.[facility] CenterIn the event this information is protected by the Federal Confidentiality of Alcohol and Drug Abuse Patient Records regulations: The Federal rules restrict any use of the information to criminally investigate or prosecute any alcohol or drug abuse patient.[facility] CenterIn the event this information is protected by the Federal Confidentiality of Alcohol and Drug Abuse Patient Records regulations: The Federal rules restrict any use of the information to criminally investigate or prosecute any alcohol or drug abuse patient.[facility] CenterIn the event this information is protected by the Federal Confidentiality of Alcohol and Drug Abuse Patient Records regulations: The Federal rules restrict any use of the information to criminally investigate or prosecute any alcohol or drug abuse patient.[facility] CenterIn the event this information is protected by the Federal Confidentiality of Alcohol and Drug Abuse Patient Records regulations: The Federal rules restrict any use of the information to criminally investigate or prosecute any alcohol or drug abuse patient.[facility] CenterIn the event this information is protected by the Federal Confidentiality of Alcohol and Drug Abuse Patient Records regulations: The Federal rules restrict any use of the information to criminally investigate or prosecute any alcohol or drug abuse patient.[facility] CenterIn the event this information is protected by the Federal Confidentiality of Alcohol and Drug Abuse Patient Records regulations: The Federal rules restrict any use of the information to criminally investigate or prosecute any alcohol or drug abuse patient.[facility] CenterIn the event this information is protected by the Federal Confidentiality of Alcohol and Drug Abuse Patient Records regulations: The Federal rules restrict any use of the information to criminally investigate or prosecute any alcohol or drug abuse patient.[facility] CenterIn the event this information is protected by the Federal Confidentiality of Alcohol and Drug Abuse Patient Records regulations: The Federal rules restrict any use of the information to criminally investigate or prosecute any alcohol or drug abuse patient.[facility] CenterIn the event this information is protected by the Federal Confidentiality of Alcohol and Drug Abuse Patient Records regulations: The Federal rules restrict any use of the information to criminally investigate or prosecute any alcohol or drug abuse patient.[facility] CenterIn the event this information is protected by the Federal Confidentiality of Alcohol and Drug Abuse Patient Records regulations: The Federal rules restrict any use of the information to criminally investigate or prosecute any alcohol or drug abuse patient.[facility] CenterIn the event this information is protected by the Federal Confidentiality of Alcohol and Drug Abuse Patient Records regulations: The Federal rules restrict any use of the information to criminally investigate or prosecute any alcohol or drug abuse patient.[facility] CenterIn the event this information is protected by the Federal Confidentiality of Alcohol and Drug Abuse Patient Records regulations: The Federal rules restrict any use of the information to criminally investigate or prosecute any alcohol or drug abuse patient.[facility] CenterIn the event this information is protected by the Federal Confidentiality of Alcohol and Drug Abuse Patient Records regulations: The Federal rules restrict any use of the information to criminally investigate or prosecute any alcohol or drug abuse patient.[facility] CenterIn the event this information is protected by the Federal Confidentiality of Alcohol and Drug Abuse Patient Records regulations: The Federal rules restrict any use of the information to criminally investigate or prosecute any alcohol or drug abuse patient.[facility] CenterIn the event this information is protected by the Federal Confidentiality of Alcohol and Drug Abuse Patient Records regulations: The Federal rules restrict any use of the information to criminally investigate or prosecute any alcohol or drug abuse patient.[facility] CenterIn the event this information is protected by the Federal Confidentiality of Alcohol and Drug Abuse Patient Records regulations: The Federal rules restrict any use of the information to criminally investigate or prosecute any alcohol or drug abuse patient.[facility] CenterIn the event this information is protected by the Federal Confidentiality of Alcohol and Drug Abuse Patient Records regulations: The Federal rules restrict any use of the information to criminally investigate or prosecute any alcohol or drug abuse patient.[facility] CenterIn the event this information is protected by the Federal Confidentiality of Alcohol and Drug Abuse Patient Records regulations: The Federal rules restrict any use of the information to criminally investigate or prosecute any alcohol or drug abuse patient.[facility] CenterIn the event this information is protected by the Federal Confidentiality of Alcohol and Drug Abuse Patient Records regulations: The Federal rules restrict any use of the information to criminally investigate or prosecute any alcohol or drug abuse patient.[facility] CenterIn the event this information is protected by the Federal Confidentiality of Alcohol and Drug Abuse Patient Records regulations: The Federal rules restrict any use of the information to criminally investigate or prosecute any alcohol or drug abuse patient.[facility] CenterIn the event this information is protected by the Federal Confidentiality of Alcohol and Drug Abuse Patient Records regulations: The Federal rules restrict any use of the information to criminally investigate or prosecute any alcohol or drug abuse patient.[facility] CenterIn the event this information is protected by the Federal Confidentiality of Alcohol and Drug Abuse Patient Records regulations: The Federal rules restrict any use of the information to criminally investigate or prosecute any alcohol or drug abuse patient.[facility] CenterIn the event this information is protected by the Federal Confidentiality of Alcohol and Drug Abuse Patient Records regulations: The Federal rules restrict any use of the information to criminally investigate or prosecute any alcohol or drug abuse patient.[facility] CenterIn the event this information is protected by the Federal Confidentiality of Alcohol and Drug Abuse Patient Records regulations: The Federal rules restrict any use of the information to criminally investigate or prosecute any alcohol or drug abuse patient.[facility] Center[facility] the event this information is protected by the Federal Confidentiality of Alcohol and Drug Abuse Patient Records regulations: The Federal rules restrict any use of the information to criminally investigate or prosecute any alcohol or drug abuse patient.[facility] Reason for Visit (unrecogniz ed section and [...] Reason Comments Hypertension Reason Comments ER F/U [facility] 03/14/2023 with elevated BP, blood [...] Comments EKG results to be faxed to [facility] p re admission testing Care Teams (unrecognized sec tion and content) 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 Specialty Start Date End Date Nola Rodriguez MD [address] [place] [address] PCP - General Internal Medicine 06/28/19 Christine Morrison, MANUEL [address] [place] [address] Referring Family Medicine 05/01/18 Dheeraj Ceron MD [address] [place] [address] Referring Cerebrovascular 05/10/19 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 Specialty Start Date End Date Nola Rodriguez MD [address] [place] [address] PCP - General Internal Medicine 06/28/19 Christine Morrison CNP [address] [place] [address] Referring Family Medicine 05/01/18 Dheeraj Ceron MD [address] [place] [address] Referring Cerebrovascular 05/10/19 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 Specialty Start Date End Date Fatuma Monae APRN.[employer]OR [employer] [address] [facility] [place] [address] PCP - General Internal Medicine 12/23/22 Christine Morrison, MANUEL [address] [place] [address] Referring Family Medicine 05/01/18 Dheeraj Ceron MD [address] [place] [address] Referring Cerebrovascular 05/10/19 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 Specialty Start Date End Date Fatuma Monae APRN.[employer] [address] [facility] [place] [address] PCP - General Internal Medicine 12/23/22 Christine Morrison, [employer] [address] [place] [address] Referring Family Medicine 05/01/18 Dheeraj Ceron MD [address] [place] [address] Referring Cerebrovascular 05/10/19 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 Specialty Start Date End Date Fatuma Monae APRN.[employer] [address] [facility] [place] [address] PCP - General Internal Medicine 12/23/22 Christine Morrison, [employer] [address] [place] [address] Referring Family Medicine 05/01/18 Dheeraj Ceron MD [address] [place] [address] Referring Cerebrovascular 05/10/19 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 Specialty Start Date End Date Fatuma Monae APRN.[employer] [address] [facility] [place] [address] PCP - General Internal Medicine 12/23/22 Christine Morrison, [employer] [address] [place] [address] Referring Family Medicine 05/01/18 Dheeraj Ceron MD [address] [place] [address] Referring Cerebrovascular 05/10/19 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 Specialty Start Date End Date Fatuma Monae APRN.[employer] [address] [facility] [place] [address] PCP - General Internal Medicine 12/23/22 Christine Morrison, [employer] [address] [place] [address] Referring Family Medicine 05/01/18 Dheeraj Ceron MD [address] [place] [address] Referring Cerebrovascular 05/10/19 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 Specialty Start Date End Date Fatuma Monae APRN.[employer] [address] [facility] [place] [address] PCP - General Internal Medicine 12/23/22 Christine Morrison, MANUEL [address] [place] [address] Referring Family Medicine 05/01/18 Dheeraj Ceron MD [address] [place] [address] Referring Cerebrovascular 05/10/19 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 Specialty Start Date End Date Fatuma Monae APRN.[employer] [address] [facility] [place] [address] PCP - General Internal Medicine 12/23/22 Christine Morrison, [employer] [address] [place] [address] Referring Family Medicine 05/01/18 Dheeraj Ceron MD [address] [place] [address] Referring Cerebrovascular 05/10/19 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 Specialty Start Date End Date Fatuma Monae APRN.DIRECT[employer] [address] [facility] [place] [address] PCP - General Internal Medicine 12/23/22 Christine Morrison, [employer] [address] [place] [address] Referring Family Medicine 05/01/18 Dheeraj Ceron MD [address] [place] [address] Referring Cerebrovascular 05/10/19 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 Specialty Start Date End Date Fatuma Monae HEALTH ANALYTICS CONSULTANT.DIRECT[employer] [address] [facility] [place] [address] PCP - General Internal Medicine 12/23/22 Christine Morrison, [employer] [address] [place] [address] Referring Family Medicine 05/01/18 Dheeraj Ceron MD [address] [place] [address] Referring Cerebrovascular 05/10/19 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 Specialty Start Date End Date Fatuma Monae, HEALTH ANALYTICS CONSULTANT.[employer] [address] [facility] [place] [address] PCP - General Internal Medicine 12/23/22 Christine Morrison, [employer] [address] [place] [address] Referring Family Medicine 05/01/18 Dheeraj Ceron MD [address] [place] [address] Referring Cerebrovascular 05/10/19 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 Specialty Start Date End Date Fatuma Monae HEALTH ANALYTICS CONSULTANT.DIRECT[employer] OF [employer] [address] [facility] [place] [address] PCP - General Internal Medicine 12/23/22 Christine Morrison, [employer] [address] [place] [address] Referring Family Medicine 05/01/18 Dheeraj Ceron MD [address] [place] [address] Referring Cerebrovascular 05/10/19 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 Specialty Start Date End Date Fatuma Monae HEALTH ANALYTICS CONSULTANT.[employer] [address] [facility] [place] [address] PCP - General Internal Medicine 12/23/22 Christine Morrison, MANUEL [address] [place] [address] Referring Family Medicine 05/01/18 Dheeraj Ceron MD [address] [place] [address] Referring Cerebrovascular 05/10/19 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 Specialty Start Date End Date Fatuma Monae, HEALTH ANALYTICS CONSULTANT.[employer] [address] [facility] [place] [address] PCP - General Internal Medicine 12/23/22 Christine Morrison, [employer] [address] [place] [address] Referring Family Medicine 05/01/18 Dheeraj Ceron MD [address] [place] [address] Referring Cerebrovascular 05/10/19 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 Specialty Start Date End Date Fatuma Monae, HEALTH ANALYTICS CONSULTANT.[employer] [address] [facility] [place] [address] PCP - General Internal Medicine 12/23/22 Christine Morrison, [employer] [address] [place] [address] Referring Family Medicine 05/01/18 Dheeraj Ceron MD [address] [place] [address] Referring Cerebrovascular 05/10/19 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 Specialty Start Date End Date Fatuma Monae APRN.[employer] [address] [facility] [place] [address] PCP - General Internal Medicine 12/23/22 Christine Morrison, MANUEL [address] [place] [address] Referring Family Medicine 05/01/18 Dheeraj Ceron MD [address] [place] [address] Referring Cerebrovascular 05/10/19 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 Specialty Start Date End Date Fatuma Monae APRN.[employer] [address] [facility] [place] [address] PCP - General Internal Medicine 12/23/22 Christine Morrison, MANUEL [address] [place] [address] Referring Family Medicine 05/01/18 Dheeraj Ceron MD [address] [place] [address] Referring Cerebrovascular 05/10/19 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 Specialty Start Date End Date Fatuma Monae APRN.[employer] [address] [facility] [place] [address] PCP - General Internal Medicine 12/23/22 Christine Morrison, [employer] [address] [place] [address] Referring Family Medicine 05/01/18 Dheeraj Ceron MD [address] [place] [address] Referring Cerebrovascular 05/10/19 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 Specialty Start Date End Date Fatuma Monae APRN.DIRECT[employer] [address] [facility] [place] [address] PCP - General Internal Medicine 12/23/22 Christine Morrison, [employer] [address] [place] [address] Referring Family Medicine 05/01/18 Dheeraj Ceron MD [address] [place] [address] Referring Cerebrovascular 05/10/19 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 Specialty Start Date End Date Fatuma Monae APRN.[employer] [address] [facility] [place] [address] PCP - General Internal Medicine 12/23/22 Christine Morrison, [employer] [address] [place] [address] Referring Family Medicine 05/01/18 Dheeraj Ceron MD [address] [place] [address] Referring Cerebrovascular 05/10/19 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 Specialty Start Date End Date Fatuma Monae APRN.[employer] [address] [facility] [place] [address] PCP - General Internal Medicine 12/23/22 Vitalyroly [place], DIRECT[employer] OF [employer] [address] [place] [address] Referring Family Medicine 05/01/18 Dhereaj Ceron MD [address] [place] [address] Referring Cerebrovascular 05/10/19 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 Specialty Start Date End Date Fatuma Monae APRN.[employer] [address] [facility] [place] [address] PCP - General Internal Medicine 12/23/22 Christine Morrison, [employer] [address] [place] [address] Referring Family Medicine 05/01/18 Dheeraj Ceron MD [address] [place] [address] Referring Cerebrovascular 05/10/19 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 Specialty Start Date End Date Fatuma Monae APRN.DIRECT[employer] [address] [facility] [place] [address] PCP - General Internal Medicine 12/23/22 Tamiko Christine, [employer] [address] [place] [address] Referring Family Medicine 05/01/18 Dheeraj Ceron MD [address] [place] [address] Referring Cerebrovascular 05/10/19 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 Specialty Start Date End Date Fatuma Monae APRN.DIRECT[employer] [address] [facility] [place] [address] PCP - General Internal Medicine 12/23/22 Vitalyroly Christine, DIRECT[employer] [address] [place] [address] Referring Family Medicine 05/01/18 Dheeraj Ceron MD [address] [place] [address] Referring Cerebrovascular 05/10/19 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 Specialty Start Date End Date Fatuma Monae APRN.DIRECT[employer] [address] [facility] [place] [address] PCP - General Internal Medicine 12/23/22 Christine Morrison, [employer] [address] [place] [address] Referring Family Medicine 05/01/18 Dheeraj Ceron MD [address] [place] [address] Referring Cerebrovascular 05/10/19 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 Specialty Start Date End Date Fatuma Monae APRN.DIRECT[employer] [address] [facility] [place] [address] PCP - General Internal Medicine 12/23/22 Christine Morrison, MANUEL [address] [place] [address] Referring Family Medicine 05/01/18 Dheeraj Ceron MD [address] [place] [address] Referring Cerebrovascular 05/10/19 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 Specialty Start Date End Date Fatuma Monae APRN.DIRECT[employer] OF [employer] [address] [facility] [place] [address] PCP - General Internal Medicine 12/23/22 Christine Morrison, [employer] [address] [place] [address] Referring Family Medicine 05/01/18 Dheeraj Ceron MD [address] [place] [address] Referring Cerebrovascular 05/10/19 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 Specialty Start Date End Date Fatuma Monae APRN.[employer] [address] [facility] [place] [address] PCP - General Internal Medicine 12/23/22 Christine Morrison, MANUEL [address] [place] [address] Referring Family Medicine 05/01/18 Dheeraj Ceron MD [address] [place] [address] Referring Cerebrovascular 05/10/19 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 Specialty Start Date End Date Fatuma Monae APRN.[employer] [address] [place] [address], [place] [address] PCP - General Internal Medicine 12/23/22 Christine Morrison, MANUEL [address] [place] [address] Referring Family Medicine 05/01/18 Dheeraj Ceron MD [address] [place] [address] Referring Cerebrovascular 05/10/19 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 Specialty Start Date End Date Fatuma Monae APRN.[employer] [address] [place] [address], [place] [address] PCP - General Internal Medicine 12/23/22 Christine Morrison, [employer] [address] [place] [address] Referring Family Medicine 05/01/18 Dheeraj Ceron MD [address] [place] [address] Referring Cerebrovascular 05/10/19 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 Specialty Start Date End Date Fatuma Monae APRN.DIRECT[employer] [address] [facility] [place] [address] PCP - General Internal Medicine 12/23/22 Christine Morrison, MANUEL [address] [place] [address] Referring Family Medicine 05/01/18 Dheeraj Ceron MD [address] [place] [address] Referring Cerebrovascular 05/10/19 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 Specialty Start Date End Date Fatuma Monae APRN.DIRECTOR OF [employer] [facility] [place] [address] PCP - General Internal Medicine 12/23/22 Christine Morrison CNP [address] [place] [address] Referring Family Medicine 05/01/18 Dheeraj Ceron MD [address] [place] [address] Referring Cerebrovascular 05/10/19 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 Specialty Start Date End Date Fatuma Monae APRN.DIRECTOR OF [employer] [facility] [place] [address] PCP - General Internal Medicine 12/23/22 Christine Morrison, [employer] [address] [place] [address] Referring Family Medicine 05/01/18 Dheeraj Ceron MD [address] [place] [address] Referring Cerebrovascular 05/10/19 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 Specialty Start Date End Date Fatuma Monae APRN.[employer] [address] [place] [address] PCP - General Internal Medicine 12/23/22 Christine Morrison CNP Referring Family Medicine 05/01/18 Dheeraj Ceron MD [address] [place], [place] [address] Referring Cerebrovascular 05/10/19 FOR RECORDS PERTAINING TO [...] BE BASED ON THE PRIMARY CLINICAL RECORDS. [employer] provides no warranty or guarantee of the accuracy or completeness of information in this document.
--- NOTE | 2024-01-07 01:21 | CT_ITS ---
STUDY: CTA CHEST REASON FOR EXAM: Female, 58 years old. chest pain with breathing s/p surgery RADIATION DOSAGE (If Supplied By Facility): CTDIvol = ( 10.96 ) mGy, DLP = ( 430.49 ) mGycm TECHNIQUE: The examination was performed with the intravenous administration of IV 100mL Isovue-370. Post-processing of the angiographic images was performed, with multiplanar reformation and 3D reconstruction. Individualized dose optimization techniques were used for this CT. COMPARISON: 02/02/2020. FINDINGS: Small low-attenuation nodule within the right thyroid lobe measuring 6 mm. Normal enhancement of the main pulmonary artery and right and left pulmonary arteries. Normal enhancement of the bilateral peripheral pulmonary arteries. There is no demonstrated pulmonary embolism. Normal thoracic aorta and visualized great vessels. There is no demonstrated aortic dissection. Normal heart and pericardium. Normal mediastinum. Normal hilar regions. Normal visualized trachea and bronchi. The lungs are well expanded. Mild mosaic pattern which may indicate small airway disease. Bilateral lower lobe atelectasis, otherwise normal lung parenchyma. No focal consolidation to suggest infiltrate. Normal pleura. Normal chest wall structures. Mild spondylosis throughout the spine. There is retroperitoneal free air in the region of the upper abdomen, Which may indicate sequela of recent surgery. Visualized intra-abdominal structures are unremarkable. CT/CTA Chest W/WO Contrast IMPRESSION: Negative CTA chest examination, without a demonstrated pulmonary embolism or arterial dissection. Retroperitoneal free air outlining the periaortic region which may indicate sequela of recent surgery, correlation with type of surgery recommended. Low-attenuation nodule within the right thyroid lobe measuring 6 mm. If indicated, follow-up with ultrasound of the thyroid gland in nonacute setting recommended. Electronically Signed: Muna Morse MD at 2:29 EST ,
[2024-01-07] MEDS: 0.9% Normal Saline (1000mL) 1,000 ML 999 ML IV (01:27)
[2024-01-07] MEDS: Ondansetron 4 MG/2 ML Vial IV (01:27)
[2024-01-07] MEDS: HYDROmorphone 1 MG/ML Syringe IV (01:27)
[2024-01-07 01:32] LABS: Absolute Lymphocyte Count 2.11 X10^3/uL (0.83-4.51); Basophil# 0.03 X10^3/uL; Basophil% 0.2 % (0-1); Eosinophil# 0.02 X10^3/uL; Eosinophils% 0.1 % (0-5); Hematocrit 41.4 % (37-47); Hemoglobin 13.7 g/dL (12.0-15.0); Lymphocyte # 2.11 X10^3/ul (0.83-4.51); Mean Corp Hgb Conc 33.1 g/dL (32-36); Mean Corpuscular Hgb 29.3 pg (27.0-32.0); Mean Corpuscular Volume 88.5 fL (81-99); Mean Platelet Vol. 9.8 fl (6.2-12.0); Monocyte# 0.82 X10^3/uL; Monocyte% 5.8 % (0-10); NRBC Flagged by Analyzer 0 % (0-5); Neutrophil # 11.02 X10^3/uL (2.7-7.7); Neutrophil % 78.5 % (47-70); Platelet Count 255 K/mm3 (150-450); RBC Distribution Width CV 14.1 % (11.6-14.6); RBC Distribution Width SD 45.7 fl (35.1-43.9); Red Blood Count 4.68 M/mm3 (4.2-5.4); White Blood Count 14.1 K/mm3 (4.4-11.0)
[2024-01-07 01:47] LABS: International Normalized Ratio 1.1; Partial Thromboplast Time 26.7 Seconds (24.1-36.2); Prothrombin Time (Protime)PT. 13.7 SECONDS (11.7-14.9)
[2024-01-07 01:56] LABS: Anion Gap 5 (5-15); BUN 12 mg/dL (7-18); BUN/Creat Ratio 19.6 RATIO (10-20); Calcium,Total 8.8 mg/dL (8.5-10.1); Chloride 111 mmol/L (98-107); Creatinine, Serum 0.61 mg/dL (0.55-1.02); EST Glomerular Filtration Rate 106 mL/min (>60); Est Glom Filt Rate - Afr Amer 128 mL/min (>60); Estimated Creatinine Clearance 91.24 ml/min; Glucose 192 mg/dL (74-106); Potassium 3.8 mmol/L (3.5-5.1); Sodium Level 141 mmol/L (136-145); Troponin-I HS 5 pg/mL (3.0-54.0)
--- NOTE | 2024-01-07 03:07 | EX.ED.DYSGE1 ---
HPI History of Present Illness Chief Complaint: Chest Pain Informant: patient and family Narrative Narrative: Patient is a 58-year-old female with past medical history of type 2 diabetes hypertension hyperlipidemia and spondylolisthesis of the lumbar spine. She was in the hospital on January 05 secondary to her chronic low back issues and underwent a discectomy. She states she stayed in the hospital until Friday and was discharged around 1 PM. She states she went home with muscle relaxers and acetaminophen. She states she took these but began to have increasing pain. She states this made her nauseous and anxious so she took a Xanax which she has at home as well secondary to anxiety. Despite this pain worsen and she developed bouts of nausea and vomiting and she like her heart was racing. Secondary to this she called EMS and she was brought in for evaluation [facility] Medical History (Updated 01/07/24 @ 06:[address] Cisco Piña, ) Abnormal EKG Acute exacerbation of chronic low back pain Anxiety Anxiety and depression Arthritis Asthma Back pain Back pain Bipolar disorder Carpal tunnel syndrome Chronic back pain Chronic headaches Chronic radicular lumbar pain Concussion Cough Diabetes Easy bruising Encounter for screening for malignant neoplasm of lung in current smoker with 30 pack year history or greater Essential hypertension Excessive bleeding Fall Flu vaccine need GERD (gastroesophageal reflux disease) Grief Head injury High cholesterol Hx of emotional problems Hyperlipidemia IBS (irritable bowel syndrome) Marijuana use Muscle spasm Neuropathy Panic attack Post concussion syndrome Restless legs Seasonal allergies Type 2 diabetes mellitus Urinary incontinence Vision problems Wears glasses Home Medications alprazolam 2 mg tablet 2 mg PO BID PRN Anxiety 03/24/19 [History Last Taken 01/04/24] nebulizers (Altera Nebulizer System) #1 ea 09/06/20 [Rx Last Taken Unknown] fluticasone propionate 50 mcg/actuation nasal spray,suspension See Rx Instructions .Route PRN PRN Nasal Congestion #15.8 mL 11/16/21 [Rx Last Taken 01/05/24] blood-glucose meter (Billeouch Verio Flex Meter) #1 ea 11/27/21 [Rx Last Taken Unknown] blood sugar diagnostic (Blood Glucose Test strips) #50 ea 11/28/21 [Rx Last Taken Unknown] blood-glucose meter #1 ea 11/28/21 [Rx Last Taken Unknown] lancets 32 gauge #100 ea 11/28/21 [Rx Last Taken Unknown] lamotrigine 200 mg tablet 200 mg PO BID BIPOLAR 03/12/22 [History Last Taken 01/04/24] paroxetine HCl 30 mg tablet 30 mg PO DAILY BIPOLAR 05/08/22 [History Last Taken 01/04/24] ipratropium 0.5 mg-albuterol 3 mg (2.5 mg base)/3 mL nebulization soln 3 ml inhalation Q8H PRN shortness of breath or wheezing #90 mL 07/22/22 [Rx Last Taken 01/05/24] blood sugar diagnostic (Billeouch Verio test strips) #100 ea 08/28/22 [Rx Last Taken Unknown] ondansetron 4 mg disintegrating tablet 4 mg PO Q8H PRN nausea and vomiting #30 tabs 09/27/22 [Rx Last Taken Unknown] budesonide-formoterol HFA 160 mcg-4.5 mcg/actuation aerosol inhaler (Symbicort) 2 puff inhalation BID ASTHMA #10.2 grams 11/04/22 [Rx Last Taken 01/04/24] Ventolin HFA 90 mcg/actuation aerosol inhaler (albuterol sulfate) 2 puff inhalation Q6H PRN shortness of breath or wheezing #8 grams 12/09/22 [Rx Last Taken 01/04/24] empagliflozin 25 mg tablet (Jardiance) 25 mg PO QAM DM #30 tabs 08/25/23 [Rx Last Taken 01/04/24] aripiprazole 2 mg tablet 2 mg PO DAILY BIPOLAR 12/22/23 [History Last Taken 01/04/24] lisinopril 20 mg tablet 20 mg PO DAILY HTN 12/22/23 [History Last Taken 01/05/24] omeprazole 40 mg capsule,delayed release 20 mg PO DAILY GERD 12/22/23 [History Last Taken 01/05/24] rosuvastatin 10 mg tablet 10 mg PO QHS HLD 12/22/23 [History Last Taken 01/04/24] acetaminophen 500 mg tablet 500 mg PO Q6H 7 days #28 tabs 01/06/24 [Rx Last Taken Unknown] meloxicam 15 mg tablet 15 mg PO DAILY 30 days #30 tabs 01/06/24 [Rx Last Taken Unknown] methocarbamol 500 mg tablet 750 mg (1.5 x 500 mg) PO TID PRN pain/spasms 7 days #30 tabs 01/06/24 [Rx Last Taken Unknown] oxycodone 5 mg tablet 2.5 - 5 mg (0.5 - 1 x 5 mg) PO Q6H PRN pain 5 days #20 tabs 01/06/24 [Rx Last Taken Unknown] oxycodone 5 mg tablet 5 mg PO Q6H PRN pain 3 days #12 tabs 01/07/24 [Rx Last Taken Unknown] Allergy/AdvReac Type Severity Reaction Status Date / Time red dye Allergy Severe swelling Verified 01/07/24 00:17 carbidopa Allergy Unknown Verified 01/07/24 00:17 gabapentin Allergy Unknown Verified 01/07/24 00:17 latex Allergy Rash Verified 01/07/24 00:17 quetiapine fumarate Allergy Other Verified 01/07/24 00:17 [From Seroquel] topiramate [From Topamax] Allergy Hives Verified 01/07/24 00:17 tramadol HCl [From Ultram] Allergy Other Verified 01/07/24 00:17 amitriptyline AdvReac Vomiting Verified 01/07/24 00:17 aspirin AdvReac Upset Verified 01/07/24 00:17 Stomach cyclobenzaprine HCl AdvReac Upset Verified 01/07/24 00:17 [From Flexeril] Stomach etodolac [Etodolac] AdvReac Vomiting Verified 01/07/24 00:17 hydrocodone bitartrate AdvReac Vomiting Verified 01/07/24 00:17 [From Vicodin] metformin AdvReac Diarrhea Verified 01/07/24 00:17 metoclopramide [From Reglan] AdvReac Other Verified 01/07/24 00:17 naproxen [From Naprosyn] AdvReac Upset Verified 01/07/24 00:17 Stomach propoxyphene napsylate AdvReac Vomiting Verified 01/07/24 00:17 [From Darvocet-N 100] Family History Mother Malignant hyperthermia due to anesthesia Angina pectoris Arthritis Bowel disease Myocardial infarction Heart disease Hypertension High cholesterol CVA (cerebral vascular accident) Father Asthma Arthritis Myocardial infarction Heart disease High cholesterol Hypertension CVA (cerebral vascular accident) Leukemia Diabetes Grandmother Lung cancer Grandfather Diabetes Grandmother Diabetes Surgical History History of History of cholecystectomy History of colonoscopy History of foot surgery History of nasal polypectomy History of partial hysterectomy History of rectal surgery History of total hysterectomy S/P knee surgery Social History household members: none Smoking Status: Current every day smoker tobacco type: cigarettes Tobacco: How many years used: 46 Electronic Cigarette Use: not used how long ago did patient quit smokin+ pack year smoking history (1.5-2 ppd x 32 years, 3 ppd x 14 years). second hand exposure: Yes quit status: considering quitting counseling given: provider counseling alcohol intake: never substance use type: does not use what type of physical activity do you participate in: walking and bicycling ROS ROS ED Constitutional Constitutional ED: Denies chills or fever(s) Eyes Eyes: Denies change in vision ENT ENT ED: Denies sore throat Cardiovascular Cardiovascular: Reports palpitations and racing heartbeat; Denies chest pain Respiratory/Chest Respiratory/Chest: Denies cough or dyspnea Gastrointestinal Gastrointestinal: Reports abdominal pain, nausea and vomiting; Denies diarrhea Genitourinary Genitourinary ED: Denies dysuria Musculoskeletal Musculoskeletal: Reports back pain Integumentary Denies rash Neurologic Neurologic: Denies headache(s), paresthesias or weakness Hematologic/Lymphatic Hematologic/Lymphatic: Denies easy bleeding or easy bruising EXAM Physical Exam Const Vital Signs: 01/07/24 00:13 01/07/24 00:13 01/07/24 00:45 Temperature 98.4 F Temperature Source Oral Pulse Rate 120 H 117 H Respiratory Rate 18 15 Respiratory Effort Normal Blood Pressure 149/93 H 135/87 H Blood Pressure Mean 111 103 Pulse Ox 96 93 Oxygen Delivery Method Room Air Room Air 01/07/24 01:17 01/07/24 00:41 01/07/24 00:45 Temperature 98.0 F Temperature Source Temporal Pulse Rate 121 H 118 H Respiratory Rate 17 14 Respiratory Effort Blood Pressure 137/99 H 135/87 H Blood Pressure Mean 111 103 Pulse Ox 96 96 Oxygen Delivery Method Room Air 01/07/24 00:50 01/07/24 01:00 01/07/24 01:10 Temperature Temperature Source Pulse Rate 117 H 123 H 119 H Respiratory Rate 20 H 17 13 Respiratory Effort Blood Pressure 141/125 H Blood Pressure Mean 132 Pulse Ox 95 95 97 Oxygen Delivery Method 01/07/24 01:15 01/07/24 01:20 01/07/24 02:04 Temperature Temperature Source Pulse Rate 120 H 120 H 105 H Respiratory Rate 14 13 12 Respiratory Effort Blood Pressure 137/99 H Blood Pressure Mean 112 Pulse Ox 96 95 92 Oxygen Delivery Method Room Air Room Air 01/07/24 03:28 Temperature Temperature Source Pulse Rate 101 H Respiratory Rate 12 Respiratory Effort Blood Pressure 118/96 H Blood Pressure Mean 103 Pulse Ox 99 Oxygen Delivery Method Room Air Positive well nourished and well developed General Appearance ED: well developed HEENT Reports dry mucous membranes HEENT Narrative: Mucous membranes are dry and tacky No tongue or lip swelling no oral lesions no airway edema or compromise No signs of infection noted in the posterior pharynx Mouth ED: Yes dry mucous membranes Mouth: dry mucous membranes Eyes PERRL and EOMs intact bilaterally General Eye ED: Negative for scleral icterus Neck supple Neck Narrative: No nuchal rigidity or meningeal signs noted Resp normal respiratory effort and clear to auscultation bilaterally Resp Narrative: Breath sounds are diminished throughout but overall clear to auscultation without signs of respiratory distress Cardio regular rhythm Rate: tachycardic and other Other Details: Tachycardic rate with regular rhythm Radial and carotid pulses are equal and symmetric GI non-tender and non-distended GI Narrative: Abdomen is soft nontender nondistended with hypoactive bowel sounds no voluntary guarding or rigidity or pulsatile mass Auscultation: hypoactive bowel sounds Palpation: soft Back/Spine Back/Spine Narrative: Patient has postsurgical changes to the low back and the wounds are clean dry and intact without signs of infection or active bleeding Extremity normal to inspection Neuro oriented x3, CN's II-XII intact bilaterally and no sensory deficits noted Sensorium / Orientation: alert Psych mental status grossly normal Skin Skin Narrative: Postoperative changes noted to low back without secondary changes to suggest infection or bleeding MDM MDM MDM Narrative Medical decision making narrative: Patient presented to the ER tachycardic but otherwise with stable vitals. She had been home for approximately 12 hours prior to returning to the ER. She denied any trauma once returning home. She reported nausea and vomiting but this was only after the pain spiked and she cannot get under control. The fact the patient's approximately 24 hours out from the time of surgery and she does not have a fever my concern that she is developing a postoperative infection such as cellulitis abscess or discitis is low. However as she does voice palpitations and is tachycardic there is concern that she potentially could have developed a pulmonary embolus during or status post surgery. Secondary to this a CTA was obtained as well as basic laboratory studies. Labs revealed no clinically significant changes. Her white count was elevated but this is very similar to the previous day and most likely stress response from recent surgical process other than infection. CTA revealed no signs of PE or acute lung pathology. It did note air in the retroperitoneal space which does correlate with her recent lumbar discectomy. Patient was given IV Dilaudid and had near resolution of her pain and with this and IV hydration her heart rate Improved. Therefore at this time the patient does not have intractable pain she does not have signs of postoperative infection or vascular injury she does not have PE or pneumonia and she wishes to return home. As workup is negative and symptoms have improved I will place her on oxycodone to take on top of her Robaxin and acetaminophen for pain relief and she will follow-up with her doctor for further evaluation. This plan of care with discussed with both patient and family and they are agreeable to it History & Record Review Discussion w/independent historian: Patient and Family Lab Data Attestation: I reviewed the patient's lab results. Labs: Laboratory Results - last 24 hr 01/07/24 00:39 WBC 14.1 H RBC 4.68 Hgb 13.7 Hct 41.4 MCV 88.5 MCH 29.3 MCHC 33.1 RDW Std Deviation 45.7 H RDW Coeff of [place] 14.1 Plt Count 255 MPV 9.8 Immature Gran % (Auto) 0.400 Neut % (Auto) 78.5 H Lymph % (Auto) 15.0 L Branch % (Auto) 5.8 Eos % (Auto) 0.1 Baso % (Auto) 0.2 Absolute Neuts (auto) 11.0 H Absolute Lymphs (auto) 2.11 Nucleated RBC % 0 PT 13.7 INR 1.1 APTT 26.7 Sodium 141 Potassium 3.8 Chloride 111 H Carbon Dioxide 25.0 Anion Gap 5 BUN 12 Creatinine 0.61 Estim Creat Clear Calc 91.24 Est GFR (MDRD) Af Amer 128 Est GFR (MDRD) Non-Af 106 BUN/Creatinine Ratio 19.6 Glucose 192 H Calcium 8.8 Troponin I High Sens 5 Radiography Diagnostic Testing: Clinical Impression(s) from Imaging Studies Chest CTA 01/07/24 01:21 IMPRESSION: Negative CTA chest examination, without a demonstrated pulmonary embolism or arterial dissection. Retroperitoneal free air outlining the periaortic region which may indicate sequela of recent surgery, correlation with type of surgery recommended. Low-attenuation nodule within the right thyroid lobe measuring 6 mm. If indicated, follow-up with ultrasound of the thyroid gland in nonacute setting recommended. Electronically Signed: Muna Morse MD at 2:29 EST , Discharge Plan Triage Chief Complaint: Chest Pain ED Provider: Cisco Piña Dx/Rx/DC Orders Clinical Impression: Post-operative pain, Type 2 diabetes mellitus, Sinus tachycardia, Essential hypertension Instructions: Pain Management After Surgery Prescriptions: New oxycodone 5 mg tablet 5 mg PO Q6H PRN (Reason: pain) 3 Days Qty: 12 0RF No Action lamotrigine 200 mg tablet 200 mg PO BID Patient Comments: take 1 tablet by mouth twice a day paroxetine HCl 30 mg tablet 30 mg PO DAILY Patient Comments: take 2 tablets by mouth once daily alprazolam 2 MG tablet 2 mg PO BID PRN (Reason: Anxiety) lisinopril 20 mg tablet 20 mg PO DAILY Patient Comments: take 1 tablet by mouth once daily aripiprazole 2 mg tablet 2 mg PO DAILY Patient Comments: take 1 tablet by mouth once daily omeprazole 40 mg capsule,delayed release(DR/EC) 20 mg PO DAILY rosuvastatin 10 mg tablet 10 mg PO QHS acetaminophen 500 mg Tablet 500 mg PO Q6H 7 Days Qty: 28 0RF meloxicam 15 mg Tablet 15 mg PO DAILY 30 Days Qty: 30 0RF methocarbamol 500 mg Tablet 750 mg PO TID PRN (Reason: pain/spasms) 7 Days Qty: 30 0RF oxycodone 5 mg Tablet 2.5 - 5 mg PO Q6H PRN (Reason: pain) 5 Days Qty: 20 0RF (DME) Altera Nebulizer System Misc See Rx Instructions .ROUTE .MEDSUPPLY Qty: 1 3RF Rx Instructions: nebulizer and supplies fluticasone propionate 50 mcg/actuation spray,suspension See Rx Instructions .Route PRN PRN (Reason: Nasal Congestion) Qty: 15.8 3RF Rx Instructions: USE 2 SPRAYS IN EACH NOSTRIL ONCE DAILY (DME) blood-glucose meter [OneTouch Verio Flex meter] Mis See Rx Instructions .ROUTE .MEDSUPPLY Qty: 1 0RF Rx Instructions: As directed - Check blood sugar daily (DME) Blood Glucose Test Strip See Rx Instructions .ROUTE .MEDSUPPLY Qty: 50 3RF Rx Instructions: use to monitor blood sugar daily for type 2 DM (DME) blood-glucose meter Misc See Rx Instructions .ROUTE .MEDSUPPLY Qty: 1 0RF Rx Instructions: use to monitor blood sugar daily for type 2 DM (DME) lancets 32 gauge misc See Rx Instructions .ROUTE .MEDSUPPLY Qty: 100 3RF Rx Instructions: use to check blood sugar for type 2 DM ipratropium-albuterol 0.5 mg-3 mg(2.5 mg base)/3 mL solution for nebulization 3 ml INHALATION Q8H PRN (Reason: shortness of breath or wheezing) Qty: 90 3RF (DME) OneTouch Verio test strips Strip See Rx Instructions .ROUTE .MEDSUPPLY Qty: 100 3RF Rx Instructions: Check blood sugar daily ondansetron 4 mg tablet,disintegrating 4 mg PO Q8H PRN (Reason: nausea and vomiting) Qty: 30 3RF budesonide-formoterol [Symbicort] 160-4.5 mcg/actuation HFA aerosol inhaler 2 puff INHALATION BID Qty: 10.2 3RF albuterol sulfate [Ventolin HFA] 90 mcg/actuation HFA aerosol inhaler 2 puff INHALATION Q6H PRN (Reason: shortness of breath or wheezing) Qty: 8 3RF Jardiance 25 mg tablet 25 mg PO QAM Qty: 30 0RF Primary Care Provider: Coral Monae NP Referrals: Coral Monae NP, [facility] [Primary Care Provider] - Disposition Disposition: Home, Self Care Discharge Date/Time: 01/07/24 03:37
[2024-01-07] MEDS: HYDROmorphone 0.5 MG/0.5 ML SYRINGE IV (03:27)
[2024-01-07] MEDS: oxyCODONE 5 MG Tablet PO (03:27)
== END 2024-01-07 03:37 | disposition home or self-care (01) ==
PROVIDERS: Emergency Provider Emergency Medicine; PCP Internal Medicine; Visit Provider Emergency Medicine
DX: G89.18 Other acute postprocedural pain (principal); E11.40 Type 2 diabetes mellitus with diabetic neuropathy, unspecified; F17.210 Nicotine dependence, cigarettes, uncomplicated; I10 Essential (primary) hypertension; R00.0 Tachycardia, unspecified; R11.2 Nausea with vomiting, unspecified; E78.5 Hyperlipidemia, unspecified; F41.9 Anxiety disorder, unspecified; J45.909 Unspecified asthma, uncomplicated; K21.9 Gastro-esophageal reflux disease without esophagitis
CPT/HCPCS: 71275; 80048; 84484; 85025; 85610; 85730; 93005; 96361; 96374; 96375; 96376; 99282; J7030; Q9967; A4216; J2405

== ENCOUNTER 2024-01-09 11:38 | Emergency (ER) | payer MEDICAID, SELFPAY ==
[2024-01-09 11:40] VITALS: BP 101/72; PULSE 126; RESP 23; TEMP 36.4; O2SAT 95; BMI 23.3
[2024-01-09 11:45] VITALS: BP 88/60; PULSE 125; RESP 23; O2SAT 93
--- NOTE | 2024-01-09 12:17 | VDLE_ITS ---
Reason For Study: Left leg pain RIGHT LEFT CFV is compressible, spontaneous, phasic, GSV is normal. competent and demonstrates normal CFV is compressible, spontaneous, phasic, augmentation. competent, and demonstrates normal Procedure augmentation. This is a venous duplex using B-mode, color FV is compressible, spontaneous, phasic, flow and spectral Doppler. competent and demonstrates normal Exam performed portable in ED. augmentation. A preliminary report was called and/or faxed POP V is compressible, spontaneous, phasic, to ED. competent and demonstrates normal augmentation. T/P Trunk is compressible. PTV is compressible. LT PerV is compressible. VL/Venous Duplex US, Unilateral Interpretation Summary There is no evidence of left lower extremity deep vein thrombosis. Left great s aphenous vein appears patent and compressible segmentally. Normal flow patterns right common femoral vein Ordering Physician: Jeremiah Ga Referring Physician: Coral Monae Performed By: Erin Tucker RVT
--- NOTE | 2024-01-09 12:18 | RAD_ITS ---
STUDY: X-RAY - LEFT ANKLE REASON FOR EXAM: Female, 58 years old. Foot and ankle pain. TECHNIQUE: 3 view(s) of the ankle. COMPARISON: None. FINDINGS: Normal visualized distal tibia and fibula. Normal medial and lateral malleoli. Normal tibiotalar articulation and ankle mortise. Small plantar spur. The visualized subtalar, talonavicular, calcaneocuboid and tarsal articulations are normal. The soft tissue structures are unremarkable. RAD/Ankle min 3 Views IMPRESSION: Small plantar spur. Electronically Signed: Clayton Grimm MD at 13:30 EST ,
--- NOTE | 2024-01-09 12:19 | EDS_ITS ---
HPI History of Present Illness Chief Complaint: Lower Extremity Injury Informant: patient and EMS Narrative Narrative: Patient presenting because of severe pain in her left foot and ankle. She just recently had back surgery in her lumbar spine for some chronic issues, that was done 5 days ago here. She states that is sore but progressing and improving. She has been getting around the house, moving her feet and ankles when resting to keep blood flowing, and doing okay until this pain started yesterday. She states it started in the arch of her foot, gradual in onset mild at the beginning, and progressed into her ankle where it is now severe and she cannot move it, she cannot bear weight on it without severe pain, and she states just having a blanket on the foot and ankle makes the pain severely worse. She denies any fevers or chills. She was seen here after surgery and had some chest symptoms and some swelling and pain up her left thigh and lower leg, she had CT of the chest rule pulmonary embolus but did not have an ultrasound of the leg and they are concerned about a blood clot. She does not have a history of blood clots and is not anticoagulated. [facility] Medical History Abnormal EKG Acute exacerbation of chronic low back pain Anxiety Anxiety and depression Arthritis Asthma Back pain Back pain Bipolar disorder Carpal tunnel syndrome Chronic back pain Chronic headaches Chronic radicular lumbar pain Concussion Cough Diabetes Easy bruising Encounter for screening for malignant neoplasm of lung in current smoker with 30 pack year history or greater Essential hypertension Excessive bleeding Fall Flu vaccine need GERD (gastroesophageal reflux disease) Grief Head injury High cholesterol Hx of emotional problems Hyperlipidemia IBS (irritable bowel syndrome) Marijuana use Muscle spasm Neuropathy Panic attack Post concussion syndrome Restless legs Seasonal allergies Type 2 diabetes mellitus Urinary incontinence Vision problems Wears glasses Home Medications alprazolam 2 mg tablet 2 mg PO BID PRN Anxiety 03/24/19 [History Last Taken 01/04/24] nebulizers (Altera Nebulizer System) #1 ea 09/06/20 [Rx Last Taken Unknown] fluticasone propionate 50 mcg/actuation nasal spray,suspension See Rx Instructions .Route PRN PRN Nasal Congestion #15.8 mL 11/16/21 [Rx Last Taken 01/05/24] blood-glucose meter ([employer] Verio Flex Meter) #1 ea 11/27/21 [Rx Last Taken Unknown] blood sugar diagnostic (Blood Glucose Test strips) #50 ea 11/28/21 [Rx Last Taken Unknown] blood-glucose meter #1 ea 11/28/21 [Rx Last Taken Unknown] lancets 32 gauge #100 ea 11/28/21 [Rx Last Taken Unknown] lamotrigine 200 mg tablet 200 mg PO BID BIPOLAR 03/12/22 [History Last Taken 01/04/24] paroxetine HCl 30 mg tablet 30 mg PO DAILY BIPOLAR 05/08/22 [History Last Taken 01/04/24] ipratropium 0.5 mg-albuterol 3 mg (2.5 mg base)/3 mL nebulization soln 3 ml inhalation Q8H PRN shortness of breath or wheezing #90 mL 07/22/22 [Rx Last Taken 01/05/24] blood sugar diagnostic (OneTouch Verio test strips) #100 ea 08/28/22 [Rx Last Taken Unknown] ondansetron 4 mg disintegrating tablet 4 mg PO Q8H PRN nausea and vomiting #30 tabs 09/27/22 [Rx Last Taken Unknown] budesonide-formoterol HFA 160 mcg-4.5 mcg/actuation aerosol inhaler (Symbicort) 2 puff inhalation BID ASTHMA #10.2 grams 11/04/22 [Rx Last Taken 01/04/24] Ventolin HFA 90 mcg/actuation aerosol inhaler (albuterol sulfate) 2 puff inhalation Q6H PRN shortness of breath or wheezing #8 grams 12/09/22 [Rx Last Taken 01/04/24] empagliflozin 25 mg tablet (Jardiance) 25 mg PO QAM DM #30 tabs 08/25/23 [Rx Last Taken 01/04/24] aripiprazole 2 mg tablet 2 mg PO DAILY BIPOLAR 12/22/23 [History Last Taken 01/04/24] lisinopril 20 mg tablet 20 mg PO DAILY HTN 12/22/23 [History Last Taken 01/05/24] omeprazole 40 mg capsule,delayed release 20 mg PO DAILY GERD 12/22/23 [History Last Taken 01/05/24] rosuvastatin 10 mg tablet 10 mg PO QHS HLD 12/22/23 [History Last Taken 01/04/24] acetaminophen 500 mg tablet 500 mg PO Q6H 7 days #28 tabs 01/06/24 [Rx Last Taken Unknown] meloxicam 15 mg tablet 15 mg PO DAILY 30 days #30 tabs 01/06/24 [Rx Last Taken Unknown] methocarbamol 500 mg tablet 750 mg (1.5 x 500 mg) PO TID PRN pain/spasms 7 days #30 tabs 01/06/24 [Rx Last Taken Unknown] oxycodone 5 mg tablet 2.5 - 5 mg (0.5 - 1 x 5 mg) PO Q6H PRN pain 5 days #20 tabs 01/06/24 [Rx Last Taken Unknown] oxycodone 5 mg tablet 5 mg PO Q6H PRN pain 3 days #12 tabs 01/07/24 [Rx Last Taken Unknown] hydroxyzine HCl 50 mg tablet 50 mg PO DAILY 01/09/24 [History Last Taken Unknown] linezolid 600 mg tablet 600 mg PO Q12H 10 days #20 tabs 01/09/24 [Rx Last Taken Unknown] methocarbamol 750 mg tablet 750 mg PO Q8H 01/09/24 [History Last Taken Unknown] ondansetron 4 mg disintegrating tablet 8 mg (2 x 4 mg) PO Q8H PRN PRN Nausea #20 tabs 01/09/24 [Rx Last Taken Unknown] Allergy/AdvReac Type Severity Reaction Status Date / Time red dye Allergy Severe swelling Verified 01/09/24 11:44 carbidopa Allergy Unknown Verified 01/09/24 11:44 gabapentin Allergy Unknown Verified 01/09/24 11:44 latex Allergy Rash Verified 01/09/24 11:44 quetiapine fumarate Allergy Other Verified 01/09/24 11:44 [From Seroquel] topiramate [From Topamax] Allergy Hives Verified 01/09/24 11:44 tramadol HCl [From Ultram] Allergy Other Verified 01/09/24 11:44 amitriptyline AdvReac Vomiting Verified 01/09/24 11:44 aspirin AdvReac Upset Verified 01/09/24 11:44 Stomach cyclobenzaprine HCl AdvReac Upset Verified 01/09/24 11:44 [From Flexeril] Stomach etodolac [Etodolac] AdvReac Vomiting Verified 01/09/24 11:44 hydrocodone bitartrate AdvReac Vomiting Verified 01/09/24 11:44 [From Vicodin] metformin AdvReac Diarrhea Verified 01/09/24 11:44 metoclopramide [From Reglan] AdvReac Other Verified 01/09/24 11:44 naproxen [From Naprosyn] AdvReac Upset Verified 01/09/24 11:44 Stomach propoxyphene napsylate AdvReac Vomiting Verified 01/09/24 11:44 [From Darvocet-N 100] Family History Mother Malignant hyperthermia due to anesthesia Angina pectoris Arthritis Bowel disease Myocardial infarction Heart disease Hypertension High cholesterol CVA (cerebral vascular accident) Father Asthma Arthritis Myocardial infarction Heart disease High cholesterol Hypertension CVA (cerebral vascular accident) Leukemia Diabetes Grandmother Lung cancer Grandfather Diabetes Grandmother Diabetes Surgical History (Updated 01/09/24 @ 11:46 by Vannesa Hyde) History of back surgery History of History of cholecystectomy History of colonoscopy History of foot surgery History of nasal polypectomy History of partial hysterectomy History of rectal surgery History of total hysterectomy S/P knee surgery Social History household members: none Smoking Status: Current every day smoker tobacco type: cigarettes Tobacco: How many years used: 46 Electronic Cigarette Use: not used how long ago did patient quit smokin+ pack year smoking history (1.5-2 ppd x 32 years, 3 ppd x 14 years). second hand exposure: Yes quit status: considering quitting counseling given: provider counseling alcohol intake: never substance use type: does not use what type of physical activity do you participate in: walking and bicycling ROS ROS ED Constitutional Constitutional ED: Denies chills or fever(s) Musculoskeletal Musculoskeletal: Reports back pain and extremity pain; Denies neck pain Integumentary Denies Abrasions, rash or wounds Neurologic Neurologic: Denies paresthesias or weakness EXAM Physical Exam Const Vital Signs: 01/09/24 11:40 01/09/24 11:45 01/09/24 16:27 Temperature 97.6 F L 99 F Temperature Source Temporal Temporal Pulse Rate 126 H 125 H 131 H Respiratory Rate 23 H 23 H 26 H Blood Pressure 101/72 88/60 L 96/68 Blood Pressure Mean 81 69 77 Pulse Ox 95 93 94 Oxygen Delivery Method Nasal Cannula Room Air Room Air 01/09/24 17:52 01/09/24 18:02 Temperature Temperature Source Pulse Rate 120 H 119 H Respiratory Rate 20 H 20 H Blood Pressure 103/77 103/73 Blood Pressure Mean 85 83 Pulse Ox 97 Oxygen Delivery Method Positive well nourished and well developed General Appearance ED: well developed and NAD Neck full ROM and supple Back/Spine normal ROM and normal to inspection Extremity Extremity Narrative: Patient refuses to move her left ankle due to severe pain. It is diffusely tender, especially the soft tissues between the bony prominences. There is no erythema but it is warm compared with the contralateral ankle. Foot is mildly warm but less so. The rest of the left lower extremity is normal-appearing. There may be some mild swelling at the ankle but I do not see swelling in the foot or the lower leg and no calf tenderness or palpable cords. She has some hyperemia at the tips of all of her toes which is different compared with the contralateral foot, but this is nontender and the bottom of the foot is normal- appearing without signs of cellulitis, abscess, lesion, nidus for infection, or anything else I can see abnormally except for the hyperemia at the plantar aspect of the distal toes which is nontender. Neuro oriented x3, no focal motor deficits and no sensory deficits noted Sensorium / Orientation: alert Psych thought process normal Mood & Affect: anxious Skin no wounds Rashes: no rashes MDM MDM MDM Narrative Medical decision making narrative: She is examining like for some due to arthritis versus septic arthritis. She has no history of gout or crystal induced arthritis that she knows of. I do not see signs of cellulitis/skin infection. She denies having had an injury of any sort. She states the ankle and foot are hurting a lot worse than her operative site in her low back. She states she has a little bit of tingling as well, certainly radicular symptoms are considered possible but I recommend blood work, x-ray, and arthrocentesis for joint fluid testing. X-rays of left ankle unremarkable. I also had a venous eval done of the left lower extremity it is negative for DVT/SVT. We did perform arthrocentesis, see the procedure note. Only able to remove a droplet of synovial fluid, so this was sent for culture and no other test will be able to be run on because there was too little fluid. CRP and ESR are elevated, however she just had back surgery. She does have a mild leukocytosis but it is similar to what her last several measurements have been. Uric acid is within normal limits, this is basically not helpful and does not rule in or out crystal induced arthritis. After Dilaudid and Zofran the patient states she has no relief of her pain. I spoke with Dr. Estrada who saw the patient in the emergency room. He recommends trying Toradol which we did and she had significant relief of her pain. We helped her to her feet and she was able to ambulate with the walker and felt a lot better. She has had resting tachycardia, we checked a lactic acid prior to give her IV fluids it was normal 1.1, she had a couple of blood pressures that were a little low but they would resolve without treatment. Her last 1 was 107/77. With the IV fluids now she her heart rate is down to 110-114, and she stands and walks without any lightheadedness or feeling poorly. She would like to go home. We sent a culture of the drop of synovial fluid, and since the Gram stain is not available due to lack of specimen, empiric antibiotic therapy is best used to cover MRSA as well as other gram-positive's, so we will place her on oral linezolid she will be given first dose here, and advised to follow-up with either her doctor or Dr. Estrada as an outpatient as soon as possible. Lab Data Attestation: I reviewed the patient's lab results. Labs: Laboratory Results - last 24 hr 01/09/24 01/09/24 01/09/24 11:58 12:28 16:24 WBC 13.1 H RBC 4.65 Hgb 13.8 Hct 42.0 MCV 90.3 MCH 29.7 MCHC 32.9 RDW Std Deviation 45.8 H RDW Coeff of Salvador 14.0 Plt Count 320 MPV 9.1 Immature Gran % (Auto) 0.700 Neut % (Auto) 78.1 H Lymph % (Auto) 12.3 L Owen % (Auto) 8.1 Eos % (Auto) 0.6 Baso % (Auto) 0.2 Absolute Neuts (auto) 10.2 H Absolute Lymphs (auto) 1.62 Nucleated RBC % 0 ESR 37 H Sodium 138 Potassium 4.0 Chloride 105 Carbon Dioxide 23.0 Anion Gap 10 BUN 20 H Creatinine 0.64 Estim Creat Clear Calc 78.29 Est GFR (MDRD) Af Amer 121 Est GFR (MDRD) Non-Af 100 BUN/Creatinine Ratio 31.1 H Glucose 160 H Lactic Acid 1.1 Uric Acid 4.8 Calcium 9.2 C-React Prot Ext Range 107.00 H Fluid Source Cancelled Fluid Color Cancelled Fluid Appearance Cancelled Fluid WBC Cancelled Fluid RBC Cancelled Fluid Tot Cell Count Cancelled Fld Polynuclear WBCs # Cancelled Fld Polynuclear WBCs % Cancelled Fluid Mononuclear WBCs Cancelled Fld Mononuclear WBCs % Cancelled Fluid Neutrophils Cancelled Fluid Lymphocytes Cancelled Fluid Monocytes Cancelled Fluid Plasma Cells Cancelled Fluid Macrophages Cancelled Fld Mesothelial Cells Cancelled Fluid Other Cells Cancelled Fluid Crystals Cancelled Fluid Crystal Source Cancelled Fl Crystal Path Review Cancelled Fl Pathologist Comment Cancelled Fluid Comment 2 Cancelled Radiography Diagnostic Testing: Clinical Impression(s) from Imaging Studies Venous Doppler Study 01/09/24 12:17 Interpretation Summary There is no evidence of left lower extremity deep vein thrombosis. Left great saphenous vein appears patent and compressible segmentally. Normal flow patterns right common femoral vein Ordering Physician: Jeremiah Ga Referring Physician: Coral Monae Performed By: Erin Tucker RVT Ankle X-Ray 01/09/24 12:18 IMPRESSION: Small plantar spur. Electronically Signed: Clayton Grimm MD at 13:30 EST , Management Discussion w/another healthcare provider: Radiation Therapy Technician ([facility]) Procedures Other Procedures Procedure(s): Arthrocentesis: After informed consent from the patient, locally prepped with isopropanol and then locally anesthetized with 1.5 cc of plain 1% lidocaine just medial to the tibialis anterior tendon from an anterior medial approach, followed by prepped with chlorhexidine and inserting a 21-gauge needle into the joint, I was able to feel the needle give way as it entered the joint space, and only a small droplets of synovial fluid was able to be aspirated despite gentle manipulation of the joint and palpation of the soft tissues on the other side. Needle was removed there were no complications tolerated well. Dressed with a Band-Aid afterwards. Discharge Plan Triage Chief Complaint: Lower Extremity Injury ED Provider: Jeremiah Ga Dx/Rx/DC Orders Clinical Impression: Acute left ankle pain, Postoperative back pain Prescriptions: New ondansetron [ondansetron] 4 mg tablet,disintegrating 8 mg PO Q8H PRN PRN (Reason: Nausea) Qty: 20 0RF linezolid 600 mg tablet 600 mg PO Q12H 10 Days Qty: 20 0RF Continued lamotrigine 200 mg tablet 200 mg PO BID Patient Comments: take 1 tablet by mouth twice a day alprazolam 2 MG tablet 2 mg PO BID PRN (Reason: Anxiety) lisinopril 20 mg tablet 20 mg PO DAILY Patient Comments: take 1 tablet by mouth once daily aripiprazole 2 mg tablet 2 mg PO DAILY Patient Comments: take 1 tablet by mouth once daily omeprazole 40 mg capsule,delayed release(DR/EC) 20 mg PO DAILY rosuvastatin 10 mg tablet 10 mg PO QHS acetaminophen 500 mg Tablet 500 mg PO Q6H 7 Days Qty: 28 0RF meloxicam 15 mg Tablet 15 mg PO DAILY 30 Days Qty: 30 0RF methocarbamol 500 mg Tablet 750 mg PO TID PRN (Reason: pain/spasms) 7 Days Qty: 30 0RF oxycodone 5 mg Tablet 2.5 - 5 mg PO Q6H PRN (Reason: pain) 5 Days Qty: 20 0RF oxycodone 5 mg tablet 5 mg PO Q6H PRN (Reason: pain) 3 Days Qty: 12 0RF hydroxyzine HCl 50 mg tablet 50 mg PO DAILY Patient Comments: take 1/2 to 2 tablets once daily if needed methocarbamol 750 mg tablet 750 mg PO Q8H Patient Comments: TAKE 1 TABLET BY MOUTH 3CTIMES A DAY IF NEEDED FOR PAIN OR SPASMS FOR 7 DAYS (DME) Altera Nebulizer System [facility] See Rx Instructions .ROUTE .MEDSUPPLY Qty: 1 3RF Rx Instructions: nebulizer and supplies fluticasone propionate 50 mcg/actuation spray,suspension See Rx Instructions .Route PRN PRN (Reason: Nasal Congestion) Qty: 15.8 3RF Rx Instructions: USE 2 SPRAYS IN EACH NOSTRIL ONCE DAILY (DME) blood-glucose meter [OneTouch Verio Flex meter] [facility] See Rx Instructions .ROUTE .MEDSUPPLY Qty: 1 0RF Rx Instructions: As directed - Check blood sugar daily (DME) Blood Glucose Test Strip See Rx Instructions .ROUTE .MEDSUPPLY Qty: 50 3RF Rx Instructions: use to monitor blood sugar daily for type 2 DM (DME) blood-glucose meter [facility] See Rx Instructions .ROUTE .MEDSUPPLY Qty: 1 0RF Rx Instructions: use to monitor blood sugar daily for type 2 DM (DME) lancets 32 gauge [facility] See Rx Instructions .ROUTE .MEDSUPPLY Qty: 100 3RF Rx Instructions: use to check blood sugar for type 2 DM ipratropium-albuterol 0.5 mg-3 mg(2.5 mg base)/3 mL solution for nebulization 3 ml INHALATION Q8H PRN (Reason: shortness of breath or wheezing) Qty: 90 3RF (DME) OneTouch Verio test strips Strip See Rx Instructions .ROUTE .MEDSUPPLY Qty: 100 3RF Rx Instructions: Check blood sugar daily ondansetron 4 mg tablet,disintegrating 4 mg PO Q8H PRN (Reason: nausea and vomiting) Qty: 30 3RF budesonide-formoterol [Symbicort] 160-4.5 mcg/actuation HFA aerosol inhaler 2 puff INHALATION BID Qty: 10.2 3RF albuterol sulfate [Ventolin HFA] 90 mcg/actuation HFA aerosol inhaler 2 puff INHALATION Q6H PRN (Reason: shortness of breath or wheezing) Qty: 8 3RF Jardiance 25 mg tablet 25 mg PO QAM Qty: 30 0RF Held paroxetine HCl 30 mg tablet 30 mg PO DAILY Hold Instructions: Resume on 01/20/24. while on linezolid antibiotic Patient Comments: take 2 tablets by mouth once daily Primary Care Provider: Coral Monae NP Referrals: Yonatan Estrada MD [Med Staff - Active Staff] - As soon as possible (and your primary doctor next week) Coral Monae NP, CONTRACT ANALYST-C [Primary Care Provider] - Disposition Disposition: Home, Self Care
[2024-01-09 12:40] LABS: Erythrocyte Sedimentation Rate 37 mm/hr (0-30)
[2024-01-09 12:42] LABS: Absolute Lymphocyte Count 1.62 X10^3/uL (0.83-4.51); Absolute Neutrophil Count 10.2 X10^3/uL (2.0-7.7); Basophil# 0.03 X10^3/uL; Basophil% 0.2 % (0-1); Eosinophil# 0.08 X10^3/uL; Eosinophils% 0.6 % (0-5); Hemoglobin 13.8 g/dL (12.0-15.0); Lymphocyte # 1.62 X10^3/ul (0.83-4.51); Lymphocyte % 12.3 % (19-41); Mean Corp Hgb Conc 32.9 g/dL (32-36); Mean Corpuscular Hgb 29.7 pg (27.0-32.0); Mean Corpuscular Volume 90.3 fL (81-99); Mean Platelet Vol. 9.1 fl (6.2-12.0); Monocyte# 1.07 X10^3/uL; Monocyte% 8.1 % (0-10); NRBC Flagged by Analyzer 0 % (0-5); Neutrophil # 10.24 X10^3/uL (2.7-7.7); Neutrophil % 78.1 % (47-70); Platelet Count 320 K/mm3 (150-450); RBC Distribution Width SD 45.8 fl (35.1-43.9); Red Blood Count 4.65 M/mm3 (4.2-5.4); White Blood Count 13.1 K/mm3 (4.4-11.0)
[2024-01-09] MEDS: HYDROmorphone 1 MG/ML Syringe IV (12:44)
[2024-01-09] MEDS: Ondansetron 4 MG/2 ML Vial IV (12:44)
[2024-01-09 12:48] LABS: Anion Gap 10 (5-15); BUN 20 mg/dL (7-18); BUN/Creat Ratio 31.1 RATIO (10-20); Calcium,Total 9.2 mg/dL (8.5-10.1); Chloride 105 mmol/L (98-107); Creatinine, Serum 0.64 mg/dL (0.55-1.02); EST Glomerular Filtration Rate 100 mL/min (>60); Est Glom Filt Rate - Afr Amer 121 mL/min (>60); Estimated Creatinine Clearance 78.29 ml/min; Glucose 160 mg/dL (74-106); Sodium Level 138 mmol/L (136-145); Uric Acid 4.8 mg/dL (2.6-6.0)
[2024-01-09 16:27] VITALS: BP 96/68; PULSE 131; RESP 26; TEMP 37.2; O2SAT 94
--- NOTE | 2024-01-09 16:38 | CONS.ORTHO ---
HPI Consult Data Date of Consult: 01/09/24 HPI Narrative HPI Narrative: RHONDA MORRISON, is a 58 F who presents to the ED with left ankle pain and swelling. She is postop day 5 status post L3-5 spinal fusion. She has improving pain around the back. She denies any abdominal pain. She feels that her left foot and ankle have been painful and swollen since yesterday evening. He she says that she has been doing a lot of ankle pumps and is unsure if she has developed a sprain. She feels that she cannot weight-bear on the foot. She has been evaluated by the ED with ankle aspiration as well as x-rays. She is also undergone a DVT scan which is negative. [facility] Medical History Abnormal EKG Acute exacerbation of chronic low back pain Anxiety Anxiety and depression Arthritis Asthma Back pain Back pain Bipolar disorder Carpal tunnel syndrome Chronic back pain Chronic headaches Chronic radicular lumbar pain Concussion Cough Diabetes Easy bruising Encounter for screening for malignant neoplasm of lung in current smoker with 30 pack year history or greater Essential hypertension Excessive bleeding Fall Flu vaccine need GERD (gastroesophageal reflux disease) Grief Head injury High cholesterol Hx of emotional problems Hyperlipidemia IBS (irritable bowel syndrome) Marijuana use Muscle spasm Neuropathy Panic attack Post concussion syndrome Restless legs Seasonal allergies Type 2 diabetes mellitus Urinary incontinence Vision problems Wears glasses Home Medications alprazolam 2 mg tablet 2 mg PO BID PRN Anxiety 03/24/19 [History Last Taken 01/04/24] nebulizers (Altera Nebulizer System) #1 ea 09/06/20 [Rx Last Taken Unknown] fluticasone propionate 50 mcg/actuation nasal spray,suspension See Rx Instructions .Route PRN PRN Nasal Congestion #15.8 mL 11/16/21 [Rx Last Taken 01/05/24] blood-glucose meter ([employer] Verio Flex Meter) #1 ea 11/27/21 [Rx Last Taken Unknown] blood sugar diagnostic (Blood Glucose Test strips) #50 ea 11/28/21 [Rx Last Taken Unknown] blood-glucose meter #1 ea 11/28/21 [Rx Last Taken Unknown] lancets 32 gauge #100 ea 11/28/21 [Rx Last Taken Unknown] lamotrigine 200 mg tablet 200 mg PO BID BIPOLAR 04/12/22 [History Last Taken 01/04/24] paroxetine HCl 30 mg tablet 30 mg PO DAILY BIPOLAR 05/08/22 [History Last Taken 01/04/24] ipratropium 0.5 mg-albuterol 3 mg (2.5 mg base)/3 mL nebulization soln 3 ml inhalation Q8H PRN shortness of breath or wheezing #90 mL 07/22/22 [Rx Last Taken 01/05/24] blood sugar diagnostic ([employer] Verio test strips) #100 ea 08/28/22 [Rx Last Taken Unknown] ondansetron 4 mg disintegrating tablet 4 mg PO Q8H PRN nausea and vomiting #30 tabs 09/27/22 [Rx Last Taken Unknown] budesonide-formoterol HFA 160 mcg-4.5 mcg/actuation aerosol inhaler (Symbicort) 2 puff inhalation BID ASTHMA #10.2 grams 11/04/22 [Rx Last Taken 01/04/24] Ventolin HFA 90 mcg/actuation aerosol inhaler (albuterol sulfate) 2 puff inhalation Q6H PRN shortness of breath or wheezing #8 grams 12/09/22 [Rx Last Taken 01/04/24] empagliflozin 25 mg tablet (Jardiance) 25 mg PO QAM DM #30 tabs 08/25/23 [Rx Last Taken 01/04/24] aripiprazole 2 mg tablet 2 mg PO DAILY BIPOLAR 12/22/23 [History Last Taken 01/04/24] lisinopril 20 mg tablet 20 mg PO DAILY HTN 12/22/23 [History Last Taken 01/05/24] omeprazole 40 mg capsule,delayed release 20 mg PO DAILY GERD 12/22/23 [History Last Taken 01/05/24] rosuvastatin 10 mg tablet 10 mg PO QHS HLD 12/22/23 [History Last Taken 01/04/24] acetaminophen 500 mg tablet 500 mg PO Q6H 7 days #28 tabs 01/06/24 [Rx Last Taken Unknown] meloxicam 15 mg tablet 15 mg PO DAILY 30 days #30 tabs 01/06/24 [Rx Last Taken Unknown] methocarbamol 500 mg tablet 750 mg (1.5 x 500 mg) PO TID PRN pain/spasms 7 days #30 tabs 01/06/24 [Rx Last Taken Unknown] oxycodone 5 mg tablet 2.5 - 5 mg (0.5 - 1 x 5 mg) PO Q6H PRN pain 5 days #20 tabs 01/06/24 [Rx Last Taken Unknown] oxycodone 5 mg tablet 5 mg PO Q6H PRN pain 3 days #12 tabs 01/07/24 [Rx Last Taken Unknown] hydroxyzine HCl 50 mg tablet 50 mg PO DAILY 01/09/24 [History Last Taken Unknown] methocarbamol 750 mg tablet 750 mg PO Q8H 01/09/24 [History Last Taken Unknown] Allergy/AdvReac Type Severity Reaction Status Date / Time red dye Allergy Severe swelling Verified 01/09/24 11:44 carbidopa Allergy Unknown Verified 01/09/24 11:44 gabapentin Allergy Unknown Verified 01/09/24 11:44 latex Allergy Rash Verified 01/09/24 11:44 quetiapine fumarate Allergy Other Verified 01/09/24 11:44 [From Seroquel] topiramate [From Topamax] Allergy Hives Verified 01/09/24 11:44 tramadol HCl [From Ultram] Allergy Other Verified 01/09/24 11:44 amitriptyline AdvReac Vomiting Verified 01/09/24 11:44 aspirin AdvReac Upset Verified 01/09/24 11:44 Stomach cyclobenzaprine HCl AdvReac Upset Verified 01/09/24 11:44 [From Flexeril] Stomach etodolac [Etodolac] AdvReac Vomiting Verified 01/09/24 11:44 hydrocodone bitartrate AdvReac Vomiting Verified 01/09/24 11:44 [From Vicodin] metformin AdvReac Diarrhea Verified 01/09/24 11:44 metoclopramide [From Reglan] AdvReac Other Verified 01/09/24 11:44 naproxen [From Naprosyn] AdvReac Upset Verified 01/09/24 11:44 Stomach propoxyphene napsylate AdvReac Vomiting Verified 01/09/24 11:44 [From Darvocet-N 100] Family History Mother Malignant hyperthermia due to anesthesia Angina pectoris Arthritis Bowel disease Myocardial infarction Heart disease Hypertension High cholesterol CVA (cerebral vascular accident) Father Asthma Arthritis Myocardial infarction Heart disease High cholesterol Hypertension CVA (cerebral vascular accident) Leukemia Diabetes Grandmother Lung cancer Grandfather Diabetes Grandmother Diabetes Surgical History (Updated 01/09/24 @ 11:46 by Vannesa Hyde) History of back surgery History of History of cholecystectomy History of colonoscopy History of foot surgery History of nasal polypectomy History of partial hysterectomy History of rectal surgery History of total hysterectomy S/P knee surgery Social History household members: none Smoking Status: Current every day smoker tobacco type: cigarettes Tobacco: How many years used: 46 Electronic Cigarette Use: not used how long ago did patient quit smokin+ pack year smoking history (1.5-2 ppd x 32 years, 3 ppd x 14 years). second hand exposure: Yes quit status: considering quitting counseling given: provider counseling alcohol intake: never substance use type: does not use what type of physical activity do you participate in: walking and bicycling Vital Signs Vital Signs Vital Signs: 01/09/24 11:40 01/09/24 11:45 01/09/24 16:27 Temperature 97.6 F L 99 F Temperature Source Temporal Temporal Pulse Rate 126 H 125 H 131 H Respiratory Rate 23 H 23 H 26 H Blood Pressure 101/72 88/60 L 96/68 Blood Pressure Mean 81 69 77 Pulse Ox 95 93 94 Oxygen Delivery Method Nasal Cannula Room Air Room Air Weight Weight: 131 lb 6.328 oz Body Mass Index (BMI) 23.3 Physical Exam Narrative Examination of the back and belly show incisions clean and dry. Abdomen is soft. Examination of the left foot and ankle show mild fullness around the midfoot and ankle joint. Patient does not allow passive range of motion of the left ankle. Actively she is able to dorsiflex the ankle up to neutral. She is able to move her toes well on the strength could not be tested due to the pain. She has warmth on the left foot compared to the right. Distal pulses seems symmetric. Lab / Micro Data 01/09/24 12:28 01/09/24 12:28 Labs: Laboratory Results - last 24 hr 01/09/24 11:58: Fluid Source Cancelled, Fluid Color Cancelled, Fluid Appearance Cancelled, Fluid WBC Cancelled, Fluid RBC Cancelled, Fluid Tot Cell Count Cancelled, Fld Polynuclear WBCs # Cancelled, Fld Polynuclear WBCs % Cancelled, Fluid Mononuclear WBCs Cancelled, Fld Mononuclear WBCs % Cancelled, Fluid Neutrophils Cancelled, Fluid Lymphocytes Cancelled, Fluid Monocytes Cancelled, Fluid Plasma Cells Cancelled, Fluid Macrophages Cancelled, Fld Mesothelial Cells Cancelled, Fluid Other Cells Cancelled, Fluid Crystals Cancelled, Fluid Crystal Source Cancelled, Fl Crystal Path Review Cancelled, Fl Pathologist Comment Cancelled, Fluid Comment 2 Cancelled 01/09/24 12:28: WBC 13.1 H, RBC 4.65, Hgb 13.8, Hct 42.0, MCV 90.3, MCH 29.7, MCHC 32.9, RDW Std Deviation 45.8 H, RDW Coeff of [place] 14.0, Plt Count 320, MPV 9.1, Immature Gran % (Auto) 0.700, Neut % (Auto) 78.1 H, Lymph % (Auto) 12.3 L, [place] % (Auto) 8.1, Eos % (Auto) 0.6, Baso % (Auto) 0.2, Absolute Neuts (auto) 10.2 H, Absolute Lymphs (auto) 1.62, Nucleated RBC % 0, ESR 37 H, Sodium 138, Potassium 4.0, Chloride 105, Carbon Dioxide 23.0, Anion Gap 10, BUN 20 H, Creatinine 0.64, Estim Creat Clear Calc 78.29, Est GFR (MDRD) Af Amer 121, Est GFR (MDRD) Non-Af 100, BUN/Creatinine Ratio 31.1 H, Glucose 160 H, Uric Acid 4.8, Calcium 9.2, C-React Prot Ext Range 107.00 H Micro: Microbiology 01/09/24 14:20 Fluid - Synovial (joint) Gram Stain - Final Imaging Radiology Impression Venous Doppler Study 01/09/24 12:17 Interpretation Summary There is no evidence of left lower extremity deep vein thrombosis. Left great saphenous vein appears patent and compressible segmentally. Normal flow patterns right common femoral vein Ordering Physician: Jeremiah Ga Referring Physician: Coral Monae Performed By: Erin Tucker RVT Ankle X-Ray 01/09/24 12:18 IMPRESSION: Small plantar spur. Electronically Signed: Clayton Grimm MD at 13:30 EST , Assessment & Plan Assessment/Plan (1) Acute left ankle pain: (2) Status post lumbar spinal fusion: PLAN: Plan I explained to the patient that it is unclear as to why she has swelling and pain of her left ankle and midfoot. Her x-rays do not show any obvious acute bony abnormalities. Her heart rate has been high which, based on discussion with ED physician, seems to be sinus tachycardia. This may be pain related, anxiety. She is otherwise afebrile. CRP is 107, ESR is 37. Unclear if these are elevated due to recent surgery versus an infective etiology. Warmth on the left foot compared to the right may be associated with lumbar sympathetic trunk dysfunction related to the approach to his lumbar spine. Suggest Toradol and anti-inflammatory medications to relieve pain. Suggested active range of motion of the left ankle and mobility when tolerated. I explained to the patient, that I cannot explain the swelling and pain in her left ankle and midfoot, and it is unlikely related to surgery. I am unsure if there is an infective etiology versus traumatic sprain. Will defer decision regarding admission for pain control to ED physician and internal medicine.
[2024-01-09] MEDS: 0.9% Normal Saline (1000mL) 1,000 ML 999 ML IV (16:39)
[2024-01-09] MEDS: Ketorolac 15 MG/ML Vial IV (16:40)
[2024-01-09 17:08] LABS: Lactic Acid 1.1 mmol/L (0.4-1.9)
[2024-01-09 17:52] VITALS: BP 103/77; PULSE 120; RESP 20; O2SAT 97
[2024-01-09 18:02] VITALS: BP 103/73; PULSE 119; RESP 20
[2024-01-09] MEDS: Doxycycline 100 MG CAPSULE PO (18:52)
== END 2024-01-09 18:56 | disposition home or self-care (01) ==
PROVIDERS: Emergency Provider Emergency Medicine; PCP Internal Medicine; Visit Provider Emergency Medicine
DX: M25.572 Pain in left ankle and joints of left foot (principal); E11.40 Type 2 diabetes mellitus with diabetic neuropathy, unspecified; Z79.84 Long term (current) use of oral hypoglycemic drugs; Z98.1 Arthrodesis status; F17.210 Nicotine dependence, cigarettes, uncomplicated; I10 Essential (primary) hypertension; E78.00 Pure hypercholesterolemia, unspecified; K21.9 Gastro-esophageal reflux disease without esophagitis; Z98.890 Other specified postprocedural states; Z79.899 Other long term (current) drug therapy; M79.89 Other specified soft tissue disorders; J45.909 Unspecified asthma, uncomplicated
CPT/HCPCS: 73610; 80048; 83605; 84550; 85025; 85652; 86140; 87070; 87075; 93971; 96361; 96374; 96375; 99282; A4216; J2405

== ENCOUNTER 2024-03-18 11:13 | Emergency (ER) | payer MEDICAID, SELFPAY ==
[2024-03-18 11:14] VITALS: BP 109/73; PULSE 110; RESP 16; TEMP 36.1; O2SAT 100; BMI 23.3
--- NOTE | 2024-03-18 11:33 | RAD_ITS ---
STUDY: X-RAY - LUMBAR SPINE REASON FOR EXAM: Female, 58 years old. Fall TECHNIQUE: 2 view(s) of the lumbar spine were obtained. COMPARISON: Comparison is made with prior study dated February 24, 2024. FINDINGS: Normal lumbar lordosis. There is no substantial scoliosis. There is a normal alignment of the vertebrae. The patient is status post interpedicular screw and jacky fixation at the L3-L4 and L4-L5 levels with prosthetic disc. Anterior fusion is seen as well. There is been no change. There is atherosclerotic calcification of the abdominal aorta without a demonstrated aneurysm. RAD/Lumbar Spine 2 or 3 Views IMPRESSION: Stable appearance of the status post interpedicular screw and jacky fixation at the L3-L4 and L4-L5 levels with prosthetic disc placement. Electronically Signed: Clayton Grimm MD at 12:58 EDT ,
--- NOTE | 2024-03-18 11:35 | EDS_ITS ---
<Statement entered by Zamzam Marshall MD - 03/18/24 20:56> I have personally performed a face to face assessment of the patient and have reviewed the SHAAN Note. Patient present secondary to back pain. She had lumbar fusion on January [address] Murphy. She was walking with a rollator yesterday when she lost her balance and fell backwards hitting her back against a bedpost. She reports increased pain. She called her Jeffrey today and has an appointment to be seen tomorrow. She presents here because of pain. No pain down her legs and no problems with bowel or bladder control. Patient sitting upright in bed no acute distress. Head and neck examination unremarkable with no external sign of trauma. Heart is regular rate and rhythm. Lung sounds are clear. Abdomen is soft and nontender. Back examination reveals diffuse muscular tenderness in the lumbar paraspinals. Incision site clean. Neuro exam reveals no deficits. Lumbar spine x-rays reveal hardware to be intact per my interpretation. Patient was initially given Percocet. She was then ordered a dose of morphine, but eloped from the emergency room before this was given. She has follow-up with her surgeon tomorrow morning. Radiology interpretation ultimately returns with stable postop findings. HPI History of Present Illness Chief Complaint: Back Narrative Narrative: 58-year-old female had a lumbar fusion with Dr. Murphy on January 05, 2024. She is ambulating with a rollator. Yesterday the rollator slipped and popped a wheelie and she fell backwards hitting her low back against her bedpost. She did not fall to the ground. She has been able to ambulate since then but has swelling and increased pain that Tylenol is not adequately managing. She has no pain radiating down her legs, no weakness or numbness or tingling, no saddle anesthesia or bladder bowel incontinence. She has an appointment with the surgeon's office tomorrow morning. [facility] Medical History Abnormal EKG Acute exacerbation of chronic low back pain Anxiety Anxiety and depression Arthritis Asthma Back pain Back pain Bipolar disorder Carpal tunnel syndrome Chronic back pain Chronic headaches Chronic radicular lumbar pain Concussion Cough Diabetes Easy bruising Encounter for screening for malignant neoplasm of lung in current smoker with 30 pack year history or greater Essential hypertension Excessive bleeding Fall Flu vaccine need GERD (gastroesophageal reflux disease) Grief Head injury High cholesterol Hx of emotional problems Hyperlipidemia IBS (irritable bowel syndrome) Marijuana use Muscle spasm Neuropathy Panic attack Post concussion syndrome Restless legs Seasonal allergies Type 2 diabetes mellitus Urinary incontinence Vision problems Wears glasses Home Medications alprazolam 2 mg tablet 2 mg PO BID PRN Anxiety 03/24/19 [History Last Taken 01/04/24] nebulizers (Altera Nebulizer System) #1 ea 09/06/20 [Rx Last Taken Unknown] fluticasone propionate 50 mcg/actuation nasal spray,suspension See Rx Instructions .Route PRN PRN Nasal Congestion #15.8 mL 11/16/21 [Rx Last Taken 01/05/24] blood-glucose meter ([employer] Verio Flex Meter) #1 ea 11/27/21 [Rx Last Taken Unknown] blood sugar diagnostic (Blood Glucose Test strips) #50 ea 11/28/21 [Rx Last Taken Unknown] blood-glucose meter #1 ea 11/28/21 [Rx Last Taken Unknown] lancets 32 gauge #100 ea 11/28/21 [Rx Last Taken Unknown] lamotrigine 200 mg tablet 200 mg PO BID BIPOLAR 03/12/22 [History Last Taken 01/04/24] paroxetine HCl 30 mg tablet 30 mg PO DAILY BIPOLAR 05/08/22 [History Last Taken 01/04/24] ipratropium 0.5 mg-albuterol 3 mg (2.5 mg base)/3 mL nebulization soln 3 ml inhalation Q8H PRN shortness of breath or wheezing #90 mL 07/22/22 [Rx Last Taken 01/05/24] blood sugar diagnostic (OneTouch Verio test strips) #100 ea 08/28/22 [Rx Last Taken Unknown] ondansetron 4 mg disintegrating tablet 4 mg PO Q8H PRN nausea and vomiting #30 tabs 09/27/22 [Rx Last Taken Unknown] budesonide-formoterol HFA 160 mcg-4.5 mcg/actuation aerosol inhaler (Symbicort) 2 puff inhalation BID ASTHMA #10.2 grams 11/04/22 [Rx Last Taken 01/04/24] Ventolin HFA 90 mcg/actuation aerosol inhaler (albuterol sulfate) 2 puff inhalation Q6H PRN shortness of breath or wheezing #8 grams 12/09/22 [Rx Last Taken 01/04/24] empagliflozin 25 mg tablet (Jardiance) 25 mg PO QAM DM #30 tabs 08/25/23 [Rx Last Taken 01/04/24] aripiprazole 2 mg tablet 2 mg PO DAILY BIPOLAR 12/22/23 [History Last Taken 01/04/24] lisinopril 20 mg tablet 20 mg PO DAILY HTN 12/22/23 [History Last Taken 01/05/24] omeprazole 40 mg capsule,delayed release 20 mg PO DAILY GERD 12/22/23 [History Last Taken 01/05/24] rosuvastatin 10 mg tablet 10 mg PO QHS HLD 12/22/23 [History Last Taken 01/04/24] acetaminophen 500 mg tablet 500 mg PO Q6H 7 days #28 tabs 01/06/24 [Rx Last Taken Unknown] meloxicam 15 mg tablet 15 mg PO DAILY 30 days #30 tabs 01/06/24 [Rx Last Taken Unknown] methocarbamol 500 mg tablet 750 mg (1.5 x 500 mg) PO TID PRN pain/spasms 7 days #30 tabs 01/06/24 [Rx Last Taken Unknown] oxycodone 5 mg tablet 2.5 - 5 mg (0.5 - 1 x 5 mg) PO Q6H PRN pain 5 days #20 tabs 01/06/24 [Rx Last Taken Unknown] oxycodone 5 mg tablet 5 mg PO Q6H PRN pain 3 days #12 tabs 01/07/24 [Rx Last Taken Unknown] docusate sodium 100 mg capsule 100 mg PO BID #14 caps 01/09/24 [Rx Last Taken Unknown] doxycycline monohydrate 100 mg capsule 100 mg PO BID #20 CAPSULES 01/09/24 [Rx Last Taken Unknown] hydroxyzine HCl 50 mg tablet 50 mg PO DAILY 01/09/24 [History Last Taken Unknown] methocarbamol 750 mg tablet 750 mg PO Q8H 01/09/24 [History Last Taken Unknown] ondansetron 4 mg disintegrating tablet 8 mg (2 x 4 mg) PO Q8H PRN PRN Nausea #20 tabs 01/09/24 [Rx Last Taken Unknown] Allergy/AdvReac Type Severity Reaction Status Date / Time red dye Allergy Severe swelling Verified 03/18/24 11:13 carbidopa Allergy Unknown Verified 03/18/24 11:13 gabapentin Allergy Unknown Verified 03/18/24 11:13 latex Allergy Rash Verified 03/18/24 11:13 quetiapine fumarate Allergy Other Verified 03/18/24 11:13 [From Seroquel] topiramate [From Topamax] Allergy Hives Verified 03/18/24 11:13 tramadol HCl [From Ultram] Allergy Other Verified 03/18/24 11:13 amitriptyline AdvReac Vomiting Verified 03/18/24 11:13 aspirin AdvReac Upset Verified 03/18/24 11:13 Stomach cyclobenzaprine HCl AdvReac Upset Verified 03/18/24 11:13 [From Flexeril] Stomach etodolac [Etodolac] AdvReac Vomiting Verified 03/18/24 11:13 hydrocodone bitartrate AdvReac Vomiting Verified 03/18/24 11:13 [From Vicodin] metformin AdvReac Diarrhea Verified 03/18/24 11:13 metoclopramide [From Reglan] AdvReac Other Verified 03/18/24 11:13 naproxen [From Naprosyn] AdvReac Upset Verified 03/18/24 11:13 Stomach propoxyphene napsylate AdvReac Vomiting Verified 03/18/24 11:13 [From Darvocet-N 100] Family History Mother Malignant hyperthermia due to anesthesia Angina pectoris Arthritis Bowel disease Myocardial infarction Heart disease Hypertension High cholesterol CVA (cerebral vascular accident) Father Asthma Arthritis Myocardial infarction Heart disease High cholesterol Hypertension CVA (cerebral vascular accident) Leukemia Diabetes Grandmother Lung cancer Grandfather Diabetes Grandmother Diabetes Surgical History History of back surgery History of History of cholecystectomy History of colonoscopy History of foot surgery History of nasal polypectomy History of partial hysterectomy History of rectal surgery History of total hysterectomy S/P knee surgery Social History household members: none Smoking Status: Current every day smoker tobacco type: cigarettes Tobacco: How many years used: 46 Electronic Cigarette Use: not used how long ago did patient quit smokin+ pack year smoking history (1.5-2 ppd x 32 years, 3 ppd x 14 years). second hand exposure: Yes quit status: considering quitting counseling given: provider counseling alcohol intake: never substance use type: does not use what type of physical activity do you participate in: walking and bicycling ROS ROS ED ROS Narrative Constitutional: Negative for fever, chills. Neuro: Negative for motor/sensory dysfunction. Skin: Negative for wound. Musc: Negative for joint pain. EXAM Physical Exam Narrative Exam Narrative: CONST: Patient sitting in no acute distress. EYES: Normal inspection. NECK: Normal inspection. RESP: No respiratory distress, CTAB. CVS: Regular rate and rhythm, no murmur, no gallop. Back: Healing incisions from lumbar fusion without signs of infection. Diffusely tender over lumbar spine and paraspinal muscles, no step-offs or crepitus. SKIN: Color normal, no rash, warm, dry, intact. EXTREMITIES: Normal appearance, 5/5 strength in bilateral hip flexion and DF/PF. Normal sensation, 2+ PT pulses. NEURO: Alert and answering questions appropriately. PSYCH: Normal affect. Const Vital Signs: 03/18/24 11:14 Temperature 97.0 F L Temperature Source Temporal Pulse Rate 110 H Respiratory Rate 16 Blood Pressure 109/73 Blood Pressure Mean 85 Pulse Ox 100 Oxygen Delivery Method Room Air MDM MDM MDM Narrative Medical decision making narrative: Patient had mechanical fall injuring her low back last night. She had a history of lumbar fusion in January 2024. She is ambulatory and has diffuse tenderness over lumbar muscles and spine. There is no focal spinal tenderness or step- offs. Lower extremity MSPs and reflexes are intact. No signs of cauda equina syndrome are present. Patient was treated with Percocet while lumbar x-ray was obtained. It did not been read yet and on reassessment she complained of persistent pain and was ordered IM morphine. However I was informed by the nurse that she eloped before this was administered because her ride was here and she has follow-up scheduled with her back surgeon tomorrow. X-ray returned showing stable appearance of her lumbar hardware no new fracture. ED attending interpretation of lumbar spine shows hardware intact, no acute fracture. Discharge Plan Triage Chief Complaint: Back ED Midlevel Provider: Vane Correa ED Provider: Zamzam Marshall Dx/Rx/DC Orders Clinical Impression: Lumbar contusion, History of lumbar spinal fusion Prescriptions: No Action lamotrigine 200 mg tablet 200 mg PO BID Patient Comments: take 1 tablet by mouth twice a day paroxetine HCl 30 mg tablet 30 mg PO DAILY Hold Instructions: Resume on 01/20/24. while on linezolid antibiotic Patient Comments: take 2 tablets by mouth once daily alprazolam 2 MG tablet 2 mg PO BID PRN (Reason: Anxiety) lisinopril 20 mg tablet 20 mg PO DAILY Patient Comments: take 1 tablet by mouth once daily aripiprazole 2 mg tablet 2 mg PO DAILY Patient Comments: take 1 tablet by mouth once daily omeprazole 40 mg capsule,delayed release(DR/EC) 20 mg PO DAILY rosuvastatin 10 mg tablet 10 mg PO QHS acetaminophen 500 mg Tablet 500 mg PO Q6H 7 Days Qty: 28 0RF meloxicam 15 mg Tablet 15 mg PO DAILY 30 Days Qty: 30 0RF methocarbamol 500 mg Tablet 750 mg PO TID PRN (Reason: pain/spasms) 7 Days Qty: 30 0RF oxycodone 5 mg Tablet 2.5 - 5 mg PO Q6H PRN (Reason: pain) 5 Days Qty: 20 0RF oxycodone 5 mg tablet 5 mg PO Q6H PRN (Reason: pain) 3 Days Qty: 12 0RF hydroxyzine HCl 50 mg tablet 50 mg PO DAILY Patient Comments: take 1/2 to 2 tablets once daily if needed methocarbamol 750 mg tablet 750 mg PO Q8H Patient Comments: TAKE 1 TABLET BY MOUTH 3CTIMES A DAY IF NEEDED FOR PAIN OR SPASMS FOR 7 DAYS ondansetron [ondansetron] 4 mg tablet,disintegrating 8 mg PO Q8H PRN PRN (Reason: Nausea) Qty: 20 0RF doxycycline monohydrate 100 mg capsule 100 mg PO BID Qty: 20 0RF docusate sodium 100 mg capsule 100 mg PO BID Qty: 14 0RF (DME) Altera Nebulizer System Misc See Rx Instructions .ROUTE .MEDSUPPLY Qty: 1 3RF Rx Instructions: nebulizer and supplies fluticasone propionate 50 mcg/actuation spray,suspension See Rx Instructions .Route PRN PRN (Reason: Nasal Congestion) Qty: 15.8 3RF Rx Instructions: USE 2 SPRAYS IN EACH NOSTRIL ONCE DAILY (DME) blood-glucose meter [[employer] Verio Flex meter] Misc See Rx Instructions .ROUTE .MEDSUPPLY Qty: 1 0RF Rx Instructions: As directed - Check blood sugar daily (DME) Blood Glucose Test Strip See Rx Instructions .ROUTE .MEDSUPPLY Qty: 50 3RF Rx Instructions: use to monitor blood sugar daily for type 2 DM (DME) blood-glucose meter Misc See Rx Instructions .ROUTE .MEDSUPPLY Qty: 1 0RF Rx Instructions: use to monitor blood sugar daily for type 2 DM (DME) lancets 32 gauge misc See Rx Instructions .ROUTE .MEDSUPPLY Qty: 100 3RF Rx Instructions: use to check blood sugar for type 2 DM ipratropium-albuterol 0.5 mg-3 mg(2.5 mg base)/3 mL solution for nebulization 3 ml INHALATION Q8H PRN (Reason: shortness of breath or wheezing) Qty: 90 3RF (DME) OneTouch Verio test strips Strip See Rx Instructions .ROUTE .MEDSUPPLY Qty: 100 3RF Rx Instructions: Check blood sugar daily ondansetron 4 mg tablet,disintegrating 4 mg PO Q8H PRN (Reason: nausea and vomiting) Qty: 30 3RF budesonide-formoterol [Symbicort] 160-4.5 mcg/actuation HFA aerosol inhaler 2 puff INHALATION BID Qty: 10.2 3RF albuterol sulfate [Ventolin HFA] 90 mcg/actuation HFA aerosol inhaler 2 puff INHALATION Q6H PRN (Reason: shortness of breath or wheezing) Qty: 8 3RF Jardiance 25 mg tablet 25 mg PO QAM Qty: 30 0RF Primary Care Provider: Corla Monae NP Referrals: Coral Monae NP, [facility] SUPPORT REPRESENTATIVE-[facility] [Primary Care Provider] - Disposition Disposition: Home, Self Care Discharge Date/Time: 03/18/24 13:40
[2024-03-18] MEDS: Oxycodone/Apap 5/325 Tablet PO (12:14)
[2024-03-18] MEDS: Ondansetron ODT 4 MG Tablet PO (12:14)
--- NOTE | 2024-03-18 13:35 | ED.RN ---
PT CALLED OUT. THIS RN WENT IN. PT STATES WHEN IS MY PAPER WORK, INFORMED PT THAT WE ARE WAITING ON XRAYS RESULTS SHE STATES THAT HER RIDE IS HERE, AND THERE IS NOT MUCH TO DO FOR ME ANYWAY. PT WALKS OUT OF THE DEPARTMENT AWARE
== END 2024-03-18 13:40 | disposition home or self-care (01) ==
LOC: ED 12:03
PROVIDERS: Emergency Provider Emergency Medicine; PCP Internal Medicine; Visit Provider Emergency Medicine
DX: S30.0XXA Contusion of lower back and pelvis, initial encounter (principal); E11.9 Type 2 diabetes mellitus without complications; F17.210 Nicotine dependence, cigarettes, uncomplicated; M43.26 Fusion of spine, lumbar region; J45.909 Unspecified asthma, uncomplicated; E78.00 Pure hypercholesterolemia, unspecified; I10 Essential (primary) hypertension; Z98.890 Other specified postprocedural states; W01.190A Fall on same level from slipping, tripping and stumbling with subsequent striking against furniture, initial encounter
CPT/HCPCS: 72100; 99282

== ENCOUNTER 2024-05-10 12:13 | Emergency (ER) | payer MEDICAID, SELFPAY ==
[2024-05-10 12:15] VITALS: BP 122/93; PULSE 72; RESP 16; TEMP 36.7; O2SAT 98; BMI 23.7
--- NOTE | 2024-05-10 13:24 | EX.ED.DYSGE1 ---
HPI History of Present Illness Chief Complaint: Headache [facility] Medical History Abnormal EKG Acute exacerbation of chronic low back pain Anxiety Anxiety and depression Arthritis Asthma Back pain Back pain Bipolar disorder Carpal tunnel syndrome Chronic back pain Chronic headaches Chronic radicular lumbar pain Concussion Cough Diabetes Easy bruising Encounter for screening for malignant neoplasm of lung in current smoker with 30 pack year history or greater Essential hypertension Excessive bleeding Fall Flu vaccine need GERD (gastroesophageal reflux disease) Grief Head injury High cholesterol Hx of emotional problems Hyperlipidemia IBS (irritable bowel syndrome) Marijuana use Muscle spasm Neuropathy Panic attack Post concussion syndrome Restless legs Seasonal allergies Type 2 diabetes mellitus Urinary incontinence Vision problems Wears glasses Home Medications ?Medication ?Instructions ?Recorded ?Last Taken ?Type alprazolam 2 mg tablet 2 mg PO BID PRN Anxiety 03/24/19 01/04/24 History nebulizers (Altera Nebulizer #1 ea 09/06/20 Unknown Rx System) fluticasone propionate 50 See Rx Instructions .Route PRN PRN 11/16/21 01/05/24 Rx mcg/actuation nasal Nasal Congestion #15.8 mL spray,suspension blood-glucose meter (OneTouch #1 ea 11/27/21 Unknown Rx Verio Flex Meter) blood sugar diagnostic (Blood #50 ea 11/28/21 Unknown Rx Glucose Test strips) blood-glucose meter #1 ea 11/28/21 Unknown Rx lancets 32 gauge #100 ea 11/28/21 Unknown Rx lamotrigine 200 mg tablet 200 mg PO BID BIPOLAR 03/12/22 01/04/24 History paroxetine HCl 30 mg tablet 30 mg PO DAILY BIPOLAR 05/08/22 01/04/24 History ipratropium 0.5 mg-albuterol 3 mg 3 ml inhalation Q8H PRN shortness 07/22/22 01/05/24 Rx (2.5 mg base)/3 mL nebulization of breath or wheezing #90 mL soln blood sugar diagnostic (OneTouch #100 ea 08/28/22 Unknown Rx Verio test strips) ondansetron 4 mg disintegrating 4 mg PO Q8H PRN nausea and 09/27/22 Unknown Rx tablet vomiting #30 tabs budesonide-formoterol HFA 160 2 puff inhalation BID ASTHMA #10.2 11/04/22 01/04/24 Rx mcg-4.5 mcg/actuation aerosol grams inhaler (Symbicort) Ventolin HFA 90 mcg/actuation 2 puff inhalation Q6H PRN 12/09/22 01/04/24 Rx aerosol inhaler (albuterol sulfate) shortness of breath or wheezing #8 grams empagliflozin 25 mg tablet 25 mg PO QAM DM #30 tabs 08/25/23 01/04/24 Rx (Jardiance) aripiprazole 2 mg tablet 2 mg PO DAILY BIPOLAR 12/22/23 01/04/24 History lisinopril 20 mg tablet 20 mg PO DAILY HTN 12/22/23 01/05/24 History omeprazole 40 mg capsule,delayed 20 mg PO DAILY GERD 12/22/23 01/05/24 History release rosuvastatin 10 mg tablet 10 mg PO QHS HLD 12/22/23 01/04/24 History acetaminophen 500 mg tablet 500 mg PO Q6H 7 days #28 tabs 01/06/24 Unknown Rx meloxicam 15 mg tablet 15 mg PO DAILY 30 days #30 tabs 01/06/24 Unknown Rx methocarbamol 500 mg tablet 750 mg (1.5 x 500 mg) PO TID PRN 01/06/24 Unknown Rx pain/spasms 7 days #30 tabs oxycodone 5 mg tablet 2.5 - 5 mg (0.5 - 1 x 5 mg) PO Q6H 01/06/24 Unknown Rx PRN pain 5 days #20 tabs oxycodone 5 mg tablet 5 mg PO Q6H PRN pain 3 days #12 01/07/24 Unknown Rx tabs docusate sodium 100 mg capsule 100 mg PO BID #14 caps 01/09/24 Unknown Rx doxycycline monohydrate 100 mg 100 mg PO BID #20 CAPSULES 01/09/24 Unknown Rx capsule hydroxyzine HCl 50 mg tablet 50 mg PO DAILY 01/09/24 Unknown History methocarbamol 750 mg tablet 750 mg PO Q8H 01/09/24 Unknown History ondansetron 4 mg disintegrating 8 mg (2 x 4 mg) PO Q8H PRN PRN 01/09/24 Unknown Rx tablet Nausea #20 tabs prochlorperazine maleate 5 mg 5 mg PO TID PRN headache #20 tabs 05/10/24 Unknown Rx tablet (Compazine) Allergy/AdvReac Type Severity Reaction Status Date / Time red dye Allergy Severe swelling Verified 05/10/24 12:14 carbidopa Allergy Unknown Verified 05/10/24 12:14 gabapentin Allergy Unknown Verified 05/10/24 12:14 latex Allergy Rash Verified 05/10/24 12:14 quetiapine fumarate (From Allergy Other Verified 05/10/24 12:14 Seroquel) topiramate (From Topamax) Allergy Hives Verified 05/10/24 12:14 tramadol HCl (From Ultram) Allergy Other Verified 05/10/24 12:14 amitriptyline AdvReac Vomiting Verified 05/10/24 12:14 aspirin AdvReac Upset Verified 05/10/24 12:14 Stomach cyclobenzaprine HCl (From AdvReac Upset Verified 05/10/24 12:14 Flexeril) Stomach etodolac (Etodolac) AdvReac Vomiting Verified 05/10/24 12:14 hydrocodone bitartrate (From AdvReac Vomiting Verified 05/10/24 12:14 Vicodin) metformin AdvReac Diarrhea Verified 05/10/24 12:14 metoclopramide (From Reglan) AdvReac Other Verified 05/10/24 12:14 naproxen (From Naprosyn) AdvReac Upset Verified 05/10/24 12:14 Stomach propoxyphene napsylate (From AdvReac Vomiting Verified 05/10/24 12:14 Darvocet-N 100) Family History Mother Malignant hyperthermia due to anesthesia Angina pectoris Arthritis Bowel disease Myocardial infarction Heart disease Hypertension High cholesterol CVA (cerebral vascular accident) Father Asthma Arthritis Myocardial infarction Heart disease High cholesterol Hypertension CVA (cerebral vascular accident) Leukemia Diabetes Grandmother Lung cancer Grandfather Diabetes Grandmother Diabetes Surgical History History of back surgery History of History of cholecystectomy History of colonoscopy History of foot surgery History of nasal polypectomy History of partial hysterectomy History of rectal surgery History of total hysterectomy S/P knee surgery Social History household members: none Smoking Status: Current every day smoker tobacco type: cigarettes Tobacco: How many years used: 46 Electronic Cigarette Use: not used how long ago did patient quit smokin+ pack year smoking history (1.5-2 ppd x 32 years, 3 ppd x 14 years). second hand exposure: Yes quit status: considering quitting alcohol intake: never substance use type: does not use what type of physical activity do you participate in: walking and bicycling EXAM Physical Exam Const Vital Signs: 05/10/24 12:15 05/10/24 14:14 Temperature 98.1 F Temperature Source Temporal Pulse Rate 72 82 Respiratory Rate 16 19 H Blood Pressure 122/93 H 110/78 Blood Pressure Mean 102 88 Pulse Ox 98 98 Oxygen Delivery Method Room Air Room Air MDM MDM MDM Narrative Medical decision making narrative: HISTORY OF PRESENT ILLNESS: 58-year-old female presents with headache for 3 days. Notes is her typical headache. Denies fever. Denies being in a congregate setting. Denies vomiting but notes nausea, photophobia. Denies focal weakness. Denies any falls or trauma. Denies any family or personal history connective tissue diseases. States has history of migraines this feels similar. States she typically gets a cocktail of morphine, Zofran and fluids that relieves her symptoms. REVIEW OF SYSTEMS: Pertinent positives: Headache, photophobia, phonophobia Pertinent negatives: Fever, neck stiffness, focal neurologic deficit PHYSICAL EXAM: Nursing triage notes reviewed, Vital signs reviewed Constitutional: please see mdm HENT: MMM Eyes: Pupils equal round and reactive to light, Extraocular muscles intact Neck: No stridor, no JVD, full neck ROM Lungs: Clear to auscultation, No wheezing or rales. No increased work of breathing, no conversational dyspnea, no accessory muscle use, no nasal flaring. No respiratory distress noted Heart: Regular rate and rhythm, No murmurs, No rubs and No gallops, 2+ distal pulses (radial, femoral, posterior tibial) in all extremities Abdomen: Soft, there is no tenderness, rigidity, rebound or guarding, no obvious peritoneal signs, no palpable pulsatile abdominal masses, no auscultated abdominal bruit : No CVAT Extremities: No edema Neuro: Alert and oriented x3, neuro exam at baseline, cranial nerves II through XII are intact. No pain with extraocular muscle movement. There is negative test of skew. 5 of 5 strength in upper and lower extremities in flexion extension. Intact sensation to light touch in upper and lower extremity dermatomes. No truncal or extremity ataxia. No dysdiadochokinesia. Normal gait. 2+ reflexes in upper and lower extremities. No meningeal signs. Negative Babinski. NIH of 0. Skin: Nondescript ecchymosis noted to bilateral upper extremities. No warmth, no fluctuance, no crepitus, no induration. No purpura MEDICAL DECISION MAKING: Chief Complaint: Headache External records reviewed: Imaging reviewed: X-ray of the lumbar spine from March 2024 shows cervical fusion from L3-L5 Factors affecting care: Bipolar disorder, hypertension, tobacco abuse, hyperlipidemia, GERD, anxiety Social determinants of health: history of mental health disorder History obtained from others: The patient's friend Consults: none MDM Narrative: The patient was hemodynamically stable, afebrile and nontoxic-appearing. No clinical exam findings to suggest a bacterial meningitis. She is not febrile she is nontoxic-appearing she had negative Kernig's and Brudzinski's sign. There are no obvious meningeal signs on exam. In addition to this it be functionally difficult to perform a lumbar puncture in a patient with a spinal fusion. Risk and benefits of foregoing lumbar puncture were discussed with the patient. She was alert and orient x 3 and a capacity to make her medical symptoms and chose to forego lumbar puncture at this time. I considered the following differential diagnosis: Meningitis, ICH, anemia, thrombocytopenia I obtained a broad lab and imaging workup to further elucidate the etiology the patient complaint specifically ruling out ICH, anemia, thrombocytopenia or signs of electrolyte disturbance. I obtained a CT scan to rule out intracranial hemorrhaging ALL IMAGES (IF OBTAINED) HAVE BEEN PERSONALLY REVIEWED AND INTERPRETED BY MYSELF. CT scan of the brain is negative for acute intracranial abnormality CBC with no evidence of leukocytosis to suggest was having inflammation, no signs of anemia or thrombocytopenia to explain the patient's rash and ecchymosis BMP without evidence of significant electrolyte abnormalities, no anion gap, no acute kidney injury. The synthesis of the patient's history, physical exam, labs images suggest likely migraine headache. While I considered meningitis I think this is of low likelihood given lack of fever, white blood cell count, meningeal signs, focal neurologic deficits, altered mental status, fever. Patient will be discharged with oral Compazine, instructed to take Tylenol and ibuprofen. The patient and/or family, caregivers express understanding. The patient and/or family, caregivers agrees with the plan. Shared decision making: I will have a discussion with the patient and or visitors regarding risk/benefits of further testing or admission. They will be made aware of of the risk/benefits inherent in this decision they will be given the opportunity to voice understanding. Total critical care time today provided was at least 0 [] minutes. This excludes separately billable procedures. Critical care time (if documented) is secondary to the patient having high probability of clinically significant/life threatening deterioration in the patient's condition which required my urgent intervention. Impression: 1. Acute headache 2. History of migraines 3. Ecchymosis Dispo: Discharge home This note was generated with [employer] dictation software. It may contain incorrect words, spelling, and punctuation that were not noted in review of the chart prior to signing. Lab Data Labs: Laboratory Results - last 24 hr 05/10/24 13:53 WBC 8.1 RBC 5.44 H Hgb 15.3 H Hct 47.6 H MCV 87.5 MCH 28.1 MCHC 32.1 RDW Std Deviation 49.1 H RDW Coeff of [place] 15.5 H Plt Count 307 MPV 8.5 Immature Gran % (Auto) 0.200 Neut % (Auto) 51.9 Lymph % (Auto) 39.6 Giles % (Auto) 6.3 Eos % (Auto) 1.5 Baso % (Auto) 0.5 Absolute Neuts (auto) 4.2 Absolute Lymphs (auto) 3.22 Nucleated RBC % 0 Sodium 139 Potassium 3.8 Chloride 110 H Carbon Dioxide 26.0 Anion Gap 3 L BUN 13 Creatinine 0.56 Estim Creat Clear Calc 89.48 Est GFR (MDRD) Af Amer 142 Est GFR (MDRD) Non-Af 117 BUN/Creatinine Ratio 23.1 H Glucose 126 H Calcium 9.0 Radiography Diagnostic Testing: Clinical Impression(s) from Imaging Studies Brain CT 05/10/24 13:43 IMPRESSION: Chronic involutional changes of the brain. Electronically Signed: Clayton Grimm MD at 14:36 EDT , Discharge Plan Triage Chief Complaint: Headache ED Provider: Benito Kamara Dx/Rx/DC Orders Instructions: ED, Migraine (Classical) Prescriptions: New prochlorperazine maleate [Compazine] 5 mg tablet 5 mg PO TID PRN (Reason: headache) Qty: 20 0RF No Action lamotrigine 200 mg tablet 200 mg PO BID Patient Comments: take 1 tablet by mouth twice a day paroxetine HCl 30 mg tablet 30 mg PO DAILY Patient Comments: take 2 tablets by mouth once daily alprazolam 2 MG tablet 2 mg PO BID PRN (Reason: Anxiety) lisinopril 20 mg tablet 20 mg PO DAILY Patient Comments: take 1 tablet by mouth once daily aripiprazole 2 mg tablet 2 mg PO DAILY Patient Comments: take 1 tablet by mouth once daily omeprazole 40 mg capsule,delayed release(DR/EC) 20 mg PO DAILY rosuvastatin 10 mg tablet 10 mg PO QHS acetaminophen 500 mg Tablet 500 mg PO Q6H 7 Days Qty: 28 0RF meloxicam 15 mg Tablet 15 mg PO DAILY 30 Days Qty: 30 0RF methocarbamol 500 mg Tablet 750 mg PO TID PRN (Reason: pain/spasms) 7 Days Qty: 30 0RF oxycodone 5 mg Tablet 2.5 - 5 mg PO Q6H PRN (Reason: pain) 5 Days Qty: 20 0RF oxycodone 5 mg tablet 5 mg PO Q6H PRN (Reason: pain) 3 Days Qty: 12 0RF hydroxyzine HCl 50 mg tablet 50 mg PO DAILY Patient Comments: take 1/2 to 2 tablets once daily if needed methocarbamol 750 mg tablet 750 mg PO Q8H Patient Comments: TAKE 1 TABLET BY MOUTH 3CTIMES A DAY IF NEEDED FOR PAIN OR SPASMS FOR 7 DAYS ondansetron [ondansetron] 4 mg tablet,disintegrating 8 mg PO Q8H PRN PRN (Reason: Nausea) Qty: 20 0RF doxycycline monohydrate 100 mg capsule 100 mg PO BID Qty: 20 0RF docusate sodium 100 mg capsule 100 mg PO BID Qty: 14 0RF (DME) Altera Nebulizer System Misc See Rx Instructions .ROUTE .MEDSUPPLY Qty: 1 3RF Rx Instructions: nebulizer and supplies fluticasone propionate 50 mcg/actuation spray,suspension See Rx Instructions .Route PRN PRN (Reason: Nasal Congestion) Qty: 15.8 3RF Rx Instructions: USE 2 SPRAYS IN EACH NOSTRIL ONCE DAILY (DME) blood-glucose meter [OneTouch Verio Flex meter] Misc See Rx Instructions .ROUTE .MEDSUPPLY Qty: 1 0RF Rx Instructions: As directed - Check blood sugar daily (DME) Blood Glucose Test Strip See Rx Instructions .ROUTE .MEDSUPPLY Qty: 50 3RF Rx Instructions: use to monitor blood sugar daily for type 2 DM (DME) blood-glucose meter Misc See Rx Instructions .ROUTE .MEDSUPPLY Qty: 1 0RF Rx Instructions: use to monitor blood sugar daily for type 2 DM (DME) lancets 32 gauge misc See Rx Instructions .ROUTE .MEDSUPPLY Qty: 100 3RF Rx Instructions: use to check blood sugar for type 2 DM ipratropium-albuterol 0.5 mg-3 mg(2.5 mg base)/3 mL solution for nebulization 3 ml INHALATION Q8H PRN (Reason: shortness of breath or wheezing) Qty: 90 3RF (DME) OneTouch Verio test strips Strip See Rx Instructions .ROUTE .MEDSUPPLY Qty: 100 3RF Rx Instructions: Check blood sugar daily ondansetron 4 mg tablet,disintegrating 4 mg PO Q8H PRN (Reason: nausea and vomiting) Qty: 30 3RF budesonide-formoterol [Symbicort] 160-4.5 mcg/actuation HFA aerosol inhaler 2 puff INHALATION BID Qty: 10.2 3RF albuterol sulfate [Ventolin HFA] 90 mcg/actuation HFA aerosol inhaler 2 puff INHALATION Q6H PRN (Reason: shortness of breath or wheezing) Qty: 8 3RF Jardiance 25 mg tablet 25 mg PO QAM Qty: 30 0RF Primary Care Provider: Coral Monae NP Referrals: Coral Monae NP, CLINICAL OPERATIONS SPECIALIST[facility] [Primary Care Provider] - Print Language: Czech
--- NOTE | 2024-05-10 13:43 | CT_ITS ---
STUDY: CT BRAIN WITHOUT CONTRAST REASON FOR EXAM: Female, 58 years old. Headache RADIATION DOSAGE (If Supplied By Facility): CTDIvol = ( 44.99 ) mGy, DLP = ( 779.24 ) mGycm TECHNIQUE: Transaxial CT imaging of the brain was performed without administration of intravenous contrast material. Individualized dose optimization techniques were used for this CT. COMPARISON: Comparison is made with prior examination dated October 23, 2021. FINDINGS: Normal soft tissue structures. Normal calvarium. There is mild cerebral atrophy with widening of the extra-axial spaces and ventricular dilatation. Normal white matter tracts of the cerebral hemispheres. Normal basal ganglia and thalami. Normal brainstem. Normal cerebellum. There is no intracranial hemorrhage. There are no findings of an acute ischemic infarction. Atherosclerotic plaque formation of the cavernous portions of the internal carotid arteries bilaterally. Normal visualized paranasal sinuses. CT/Brain/Head without Contrast IMPRESSION: Chronic involutional changes of the brain. Electronically Signed: Clayton Grimm MD at 14:36 EDT ,
[2024-05-10 13:59] LABS: Absolute Lymphocyte Count 3.22 X10^3/uL (0.83-4.51); Absolute Neutrophil Count 4.2 X10^3/uL (2.0-7.7); Basophil# 0.04 X10^3/uL; Basophil% 0.5 % (0-1); Eosinophil# 0.12 X10^3/uL; Eosinophils% 1.5 % (0-5); Hematocrit 47.6 % (37-47); Hemoglobin 15.3 g/dL (12.0-15.0); Lymphocyte # 3.22 X10^3/ul (0.83-4.51); Lymphocyte % 39.6 % (19-41); Mean Corp Hgb Conc 32.1 g/dL (32-36); Mean Corpuscular Hgb 28.1 pg (27.0-32.0); Mean Corpuscular Volume 87.5 fL (81-99); Mean Platelet Vol. 8.5 fl (6.2-12.0); Monocyte# 0.51 X10^3/uL; Monocyte% 6.3 % (0-10); NRBC Flagged by Analyzer 0 % (0-5); Neutrophil # 4.22 X10^3/uL (2.7-7.7); Neutrophil % 51.9 % (47-70); Platelet Count 307 K/mm3 (150-450); RBC Distribution Width CV 15.5 % (11.6-14.6); RBC Distribution Width SD 49.1 fl (35.1-43.9); Red Blood Count 5.44 M/mm3 (4.2-5.4); White Blood Count 8.1 K/mm3 (4.4-11.0)
[2024-05-10] MEDS: 0.9% Normal Saline (1000mL) 1,000 ML 999 ML IV (14:00)
[2024-05-10] MEDS: Acetaminophen 325 MG Tablet 650 MG PO (14:01)
[2024-05-10] MEDS: proCHLORPERazine 10 MG/2 ML Vial 5 MG IV (14:02)
[2024-05-10 14:13] LABS: Anion Gap 3 (5-15); BUN 13 mg/dL (7-18); BUN/Creat Ratio 23.1 RATIO (10-20); Chloride 110 mmol/L (98-107); Creatinine, Serum 0.56 mg/dL (0.55-1.02); EST Glomerular Filtration Rate 117 mL/min (>60); Est Glom Filt Rate - Afr Amer 142 mL/min (>60); Estimated Creatinine Clearance 89.48 ml/min; Glucose 126 mg/dL (74-106); Potassium 3.8 mmol/L (3.5-5.1); Sodium Level 139 mmol/L (136-145)
[2024-05-10 14:14] VITALS: BP 110/78; PULSE 82; RESP 19; O2SAT 98
[2024-05-10] MEDS: Ketorolac 15 MG/ML Vial IV (14:38)
[2024-05-10 15:06] VITALS: BP 110/78; PULSE 76; RESP 19; TEMP 36.6; O2SAT 98
== END 2024-05-10 15:07 | disposition home or self-care (01) ==
PROVIDERS: Emergency Provider Emergency Medicine; PCP Internal Medicine; Visit Provider Emergency Medicine
DX: R51.9 Headache, unspecified (principal); F31.9 Bipolar disorder, unspecified; E11.9 Type 2 diabetes mellitus without complications; I10 Essential (primary) hypertension; F41.9 Anxiety disorder, unspecified; K21.9 Gastro-esophageal reflux disease without esophagitis; F17.210 Nicotine dependence, cigarettes, uncomplicated; E78.00 Pure hypercholesterolemia, unspecified; R58 Hemorrhage, not elsewhere classified
CPT/HCPCS: 70450; 80048; 85025; 96374; 96375; 99282; J7030; A4216

== ENCOUNTER 2024-06-10 11:11 | Emergency (ER) | payer MEDICAID, SELFPAY ==
[2024-06-10 11:14] VITALS: BP 120/78; PULSE 96; RESP 18; TEMP 36.1; O2SAT 98; BMI 25.8
--- NOTE | 2024-06-10 11:43 | EKG12_ITS ---
Test Reason : DIZZY Blood Pressure : / mmHG Vent. Rate : 093 BPM Atrial Rate : 093 BPM P-R Int : 206 ms QRS Dur : 070 ms QT Int : 358 ms P-R-T Axes : 074 059 070 degrees QTc Int : 445 ms Normal sinus rhythm Low voltage QRS Septal infarct , age undetermined Abnormal ECG Confirmed by ELIN ADLER, PETER ([id number]), publishing editor COLBY MACDONALD ([id number]) on 06/16/2024 10:38:17 A M Referred By: Confirmed By:FRANCISCO WORTHINGTON MD
--- NOTE | 2024-06-10 12:04 | RAD_ITS ---
STUDY: X-RAY CHEST REASON FOR EXAM: Female, 58 years old. Stroke TECHNIQUE: Single AP portable view of the chest. COMPARISON: Comparison is made with prior study March 11, 2022. FINDINGS: Hyperinflation. The lungs are clear. There is no demonstrated pleural abnormality. Normal size heart. Normal mediastinum and caleb. Normal visualized pulmonary arteries. There is atherosclerotic calcification of the aortic arch with tortuosity. Normal visualized thoracic spine. Normal visualized ribs, clavicles, and shoulders. There is no demonstrated abnormality of the visualized soft tissue structures of the upper abdomen. RAD/Chest 1 View (Portable) IMPRESSION: Hyperinflation. The lungs are clear. Electronically Signed: Clayton Grimm MD at 12:27 EDT ,
[2024-06-10 12:19] LABS: Absolute Lymphocyte Count 3.05 X10^3/uL (0.83-4.51); Absolute Neutrophil Count 5.7 X10^3/uL (2.0-7.7); Basophil# 0.04 X10^3/uL; Basophil% 0.4 % (0-1); Eosinophils% 1.1 % (0-5); Hemoglobin 15.2 g/dL (12.0-15.0); Lymphocyte # 3.05 X10^3/ul (0.83-4.51); Lymphocyte % 32.3 % (19-41); Mean Corp Hgb Conc 32.3 g/dL (32-36); Mean Corpuscular Hgb 29.2 pg (27.0-32.0); Mean Corpuscular Volume 90.4 fL (81-99); Mean Platelet Vol. 8.9 fl (6.2-12.0); Monocyte# 0.51 X10^3/uL; Monocyte% 5.4 % (0-10); NRBC Flagged by Analyzer 0 % (0-5); Neutrophil # 5.68 X10^3/uL (2.7-7.7); Neutrophil % 60.3 % (47-70); Platelet Count 313 K/mm3 (150-450); RBC Distribution Width CV 16.1 % (11.6-14.6); RBC Distribution Width SD 53.6 fl (35.1-43.9); White Blood Count 9.4 K/mm3 (4.4-11.0)
[2024-06-10 12:38] LABS: International Normalized Ratio 0.9; Prothrombin Time (Protime)PT. 12.5 SECONDS (11.7-14.9)
[2024-06-10 12:39] LABS: Anion Gap 8 (5-15); BUN 11 mg/dL (7-18); BUN/Creat Ratio 16.5 RATIO (10-20); Calcium,Total 8.8 mg/dL (8.5-10.1); Chloride 109 mmol/L (98-107); Creatinine, Serum 0.67 mg/dL (0.55-1.02); EST Glomerular Filtration Rate 96 mL/min (>60); Est Glom Filt Rate - Afr Amer 116 mL/min (>60); Estimated Creatinine Clearance 82.68 ml/min; Glucose 152 mg/dL (74-106); Partial Thromboplast Time 26.7 Seconds (24.1-36.2); Potassium 3.9 mmol/L (3.5-5.1); Sodium Level 141 mmol/L (136-145)
[2024-06-10] MEDS: Ondansetron 4 MG/2 ML Vial IV (12:46)
[2024-06-10] MEDS: Acetaminophen 500 MG Tablet 1000 MG PO (12:46)
[2024-06-10] MEDS: DiphenhydrAMINE 50 MG/ML Syringe 25 MG IV (12:46)
[2024-06-10] MEDS: 0.9% Normal Saline (1000mL) 1,000 ML 999 ML IV (12:47)
[2024-06-10 12:51] VITALS: O2SAT 98
--- NOTE | 2024-06-10 12:55 | CT_ITS ---
STUDY: CT BRAIN WITHOUT CONTRAST REASON FOR EXAM: Female, 58 years old. Headache, n/v RADIATION DOSAGE (If Supplied By Facility): CTDIvol = ( 44.99 ) mGy, DLP = ( 829.85 ) mGycm TECHNIQUE: Transaxial CT imaging of the brain was performed without administration of intravenous contrast material. Individualized dose optimization techniques were used for this CT. COMPARISON: Comparison is made with prior study dated May 10, 2024. FINDINGS: Normal soft tissue structures. Normal calvarium. There is mild cerebral atrophy with widening of the extra-axial spaces and ventricular dilatation. Normal white matter tracts of the cerebral hemispheres. Normal basal ganglia and thalami. Normal brainstem. Normal cerebellum. There is no intracranial hemorrhage. There are no findings of an acute ischemic infarction. Atherosclerotic plaque formation of the cavernous portions of the internal carotid arteries bilaterally. Normal visualized paranasal sinuses. CT/Brain/Head without Contrast IMPRESSION: Chronic involutional changes of the brain. Electronically Signed: Clayton Grimm MD at 13:12 EDT ,
[2024-06-10 13:13] VITALS: BP 116/60; PULSE 72; RESP 14; O2SAT 95
[2024-06-10] MEDS: Ketorolac 15 MG/ML Vial IV (14:53)
[2024-06-10 15:00] VITALS: PULSE 78; RESP 14; O2SAT 99
--- NOTE | 2024-06-10 16:24 | EX.ED.DYSGE1 ---
HPI History of Present Illness Chief Complaint: Headache Narrative Narrative: Patient is a 58-year-old female with past medical history of anxiety, bipolar disorder, marijuana use, diabetes, hypercholesterolemia, hypertension, GERD, IBS, chronic headaches who presents to the emergency department with a chief complaint of headache as well as nausea vomiting. Patient states that she has had a headache for the past week now and states that she has tried multiple [id number] medications without relief therefore she came here for the evaluation management today. [facility] Medical History Wears glasses Anxiety Bipolar disorder Marijuana use Diabetes Arthritis High cholesterol Excessive bleeding Restless legs Back pain Urinary incontinence Flu vaccine need Easy bruising Back pain Essential hypertension Chronic back pain Grief Encounter for screening for malignant neoplasm of lung in current smoker with 30 pack year history or greater Cough Acute exacerbation of chronic low back pain GERD (gastroesophageal reflux disease) Abnormal EKG Panic attack Anxiety and depression Head injury Fall Concussion Muscle spasm Chronic radicular lumbar pain Type 2 diabetes mellitus Post concussion syndrome Vision problems Neuropathy IBS (irritable bowel syndrome) Hyperlipidemia Chronic headaches Hx of emotional problems Carpal tunnel syndrome Asthma Seasonal allergies Home Medications ?Medication ?Instructions ?Recorded ?Last Taken ?Type alprazolam 2 mg tablet 2 mg PO BID PRN Anxiety 03/24/19 01/04/24 History nebulizers (Altera Nebulizer #1 ea 09/06/20 Unknown Rx System) fluticasone propionate 50 See Rx Instructions .Route PRN PRN 11/16/21 01/05/24 Rx mcg/actuation nasal Nasal Congestion #15.8 mL spray,suspension blood-glucose meter (OneTouch #1 ea 11/27/21 Unknown Rx Verio Flex Meter) blood sugar diagnostic (Blood #50 ea 11/28/21 Unknown Rx Glucose Test strips) blood-glucose meter #1 ea 11/28/21 Unknown Rx lancets 32 gauge #100 ea 11/28/21 Unknown Rx lamotrigine 200 mg tablet 200 mg PO BID BIPOLAR 03/12/22 01/04/24 History paroxetine HCl 30 mg tablet 30 mg PO DAILY BIPOLAR 05/08/22 01/04/24 History ipratropium 0.5 mg-albuterol 3 mg 3 ml inhalation Q8H PRN shortness 07/22/22 01/05/24 Rx (2.5 mg base)/3 mL nebulization of breath or wheezing #90 mL soln blood sugar diagnostic (OneTouch #100 ea 08/28/22 Unknown Rx Verio test strips) ondansetron 4 mg disintegrating 4 mg PO Q8H PRN nausea and 09/27/22 Unknown Rx tablet vomiting #30 tabs budesonide-formoterol HFA 160 2 puff inhalation BID ASTHMA #10.2 11/04/22 01/04/24 Rx mcg-4.5 mcg/actuation aerosol grams inhaler (Symbicort) Ventolin HFA 90 mcg/actuation 2 puff inhalation Q6H PRN 12/09/22 01/04/24 Rx aerosol inhaler (albuterol sulfate) shortness of breath or wheezing #8 grams empagliflozin 25 mg tablet 25 mg PO QAM DM #30 tabs 08/25/23 01/04/24 Rx (Jardiance) aripiprazole 2 mg tablet 2 mg PO DAILY BIPOLAR 12/22/23 01/04/24 History lisinopril 20 mg tablet 20 mg PO DAILY HTN 12/22/23 01/05/24 History omeprazole 40 mg capsule,delayed 20 mg PO DAILY GERD 12/22/23 01/05/24 History release rosuvastatin 10 mg tablet 10 mg PO QHS HLD 12/22/23 01/04/24 History acetaminophen 500 mg tablet 500 mg PO Q6H 7 days #28 tabs 01/06/24 Unknown Rx meloxicam 15 mg tablet 15 mg PO DAILY 30 days #30 tabs 01/06/24 Unknown Rx methocarbamol 500 mg tablet 750 mg (1.5 x 500 mg) PO TID PRN 01/06/24 Unknown Rx pain/spasms 7 days #30 tabs oxycodone 5 mg tablet 2.5 - 5 mg (0.5 - 1 x 5 mg) PO Q6H 01/06/24 Unknown Rx PRN pain 5 days #20 tabs oxycodone 5 mg tablet 5 mg PO Q6H PRN pain 3 days #12 01/07/24 Unknown Rx tabs docusate sodium 100 mg capsule 100 mg PO BID #14 caps 01/09/24 Unknown Rx doxycycline monohydrate 100 mg 100 mg PO BID #20 CAPSULES 01/09/24 Unknown Rx capsule hydroxyzine HCl 50 mg tablet 50 mg PO DAILY 01/09/24 Unknown History methocarbamol 750 mg tablet 750 mg PO Q8H 01/09/24 Unknown History ondansetron 4 mg disintegrating 8 mg (2 x 4 mg) PO Q8H PRN PRN 01/09/24 Unknown Rx tablet Nausea #20 tabs prochlorperazine maleate 5 mg 5 mg PO TID PRN headache #20 tabs 05/10/24 Unknown Rx tablet (Compazine) Allergy/AdvReac Type Severity Reaction Status Date / Time red dye Allergy Severe swelling Verified 06/10/24 11:17 carbidopa Allergy Unknown Verified 06/10/24 11:17 gabapentin Allergy Unknown Verified 06/10/24 11:17 latex Allergy Rash Verified 06/10/24 11:17 quetiapine fumarate (From Allergy Other Verified 06/10/24 11:17 Seroquel) topiramate (From Topamax) Allergy Hives Verified 06/10/24 11:17 tramadol HCl (From Ultram) Allergy Other Verified 06/10/24 11:17 amitriptyline AdvReac Vomiting Verified 06/10/24 11:17 aspirin AdvReac Upset Verified 06/10/24 11:17 Stomach cyclobenzaprine HCl (From AdvReac Upset Verified 06/10/24 11:17 Flexeril) Stomach etodolac (Etodolac) AdvReac Vomiting Verified 06/10/24 11:17 hydrocodone bitartrate (From AdvReac Vomiting Verified 06/10/24 11:17 Vicodin) metformin AdvReac Diarrhea Verified 06/10/24 11:17 metoclopramide (From Reglan) AdvReac Other Verified 06/10/24 11:17 naproxen (From Naprosyn) AdvReac Upset Verified 06/10/24 11:17 Stomach propoxyphene napsylate (From AdvReac Vomiting Verified 06/10/24 11:17 Darvocet-N 100) Family History Mother Malignant hyperthermia due to anesthesia Angina pectoris Arthritis Bowel disease Myocardial infarction Heart disease Hypertension High cholesterol CVA (cerebral vascular accident) Father Asthma Arthritis Myocardial infarction Heart disease High cholesterol Hypertension CVA (cerebral vascular accident) Leukemia Diabetes Grandmother Lung cancer Grandfather Diabetes Grandmother Diabetes Surgical History History of back surgery History of rectal surgery History of colonoscopy History of foot surgery History of nasal polypectomy S/P knee surgery History of total hysterectomy History of cholecystectomy History of partial hysterectomy History of Social History household members: none Smoking Status: Current every day smoker tobacco type: cigarettes Tobacco: How many years used: 46 Electronic Cigarette Use: not used how long ago did patient quit smokin+ pack year smoking history (1.5-2 ppd x 32 years, 3 ppd x 14 years). second hand exposure: Yes quit status: considering quitting alcohol intake: never substance use type: does not use what type of physical activity do you participate in: walking and bicycling ROS ROS ED ROS Narrative Constitutional: Complains of headache is not above the denies any lightheadedness or dizziness ENT: Denies any double vision blurry vision change in vision Respiratory: Denies cough wheezing shortness of breath Cardiovascular: Denies chest pain or palpitations Abdominal: Denies abdominal pain nausea vomit diarrhea Genitourinary: Denies any painful urination, hematuria, polyuria Neurologic: Denies any numbness, weakness, tingling EXAM Physical Exam Narrative Exam Narrative: General appearance: Patient was lying in bed rest comfortably did not appear to be in acute distress Head: Atraumatic, normocephalic EENT: Pupils equal round react light bilateral, extraocular muscle intact, no conjunctival injection noted, no vertical or horizontal nystagmus on exam Neck: Soft, supple, trachea midline Cardiac: Regular rate and rhythm no murmurs gallops rubs noted Lungs: Clear to auscultation bilaterally no rales rhonchi wheeze noted abdomen soft, nondistended, nontender to palpation Extremities: +5/5 strength in the bilateral lower extremities, no pedal edema on exam Neurologic: Patient functioning is that she was [facility] years 2023. Patient completed finger-nose test without any difficulty, AHI 0 GCS 15 Skin: Warm, dry, intact Psychiatric: Mood and affect appropriate Const Vital Signs: 06/10/24 11:14 06/10/24 12:51 06/10/24 13:13 Temperature 97 F L Temperature Source Temporal Pulse Rate 96 72 Respiratory Rate 18 14 Blood Pressure 120/78 116/60 Blood Pressure Mean 92 78 Pulse Ox 98 98 95 Oxygen Delivery Method Room Air Room Air 06/10/24 15:00 Temperature Temperature Source Pulse Rate 78 Respiratory Rate 14 Blood Pressure Blood Pressure Mean Pulse Ox 99 Oxygen Delivery Method MDM MDM MDM Narrative Medical decision making narrative: Patient is a 58-year-old female who presents to the emerged part with chief complaint headache. On the differential diagnose includes but limited to intracranial hemorrhage, mass intracranially, electrolyte abnormalities, ACS. Once workup is obtained reviewed she will be reevaluated. Patient was given IV fluids, Zofran, Benadryl and Toradol. Patient's CBC reviewed and showed normal white blood count of 9.4, hemoglobin stable 15.2, plate count was noted to be 313. Patient's INR normal at 0.9, sodium normal 141, potassium normal 3.9, creatinine normal at 0.67. Patient's EKG was reviewed as well and showed sinus rhythm rate of 93 bpm. On reevaluation of the patient patient states that she feels mildly improved from when she arrived. Patient was offered droperidol however she declined this medication. Patient states that she feels nauseous still, however she was offered admission to the hospital for headache and intractable nausea and vomiting. patient declined and states that she wants to go home and does not want to be admitted. Patient states that she does have a follow-up appointment with a neurologist and her physician and would prefer to follow-up with them in the outpatient setting. Patient states she will return with worsening symptoms or other concerns. All question concerns answered she was discharged home in stable condition Lab Data Labs: Laboratory Results - last 24 hr 06/10/24 11:58 WBC 9.4 RBC 5.20 Hgb 15.2 H Hct 47.0 MCV 90.4 MCH 29.2 MCHC 32.3 RDW Std Deviation 53.6 H RDW Coeff of [place] 16.1 H Plt Count 313 MPV 8.9 Immature Gran % (Auto) 0.500 Neut % (Auto) 60.3 Lymph % (Auto) 32.3 Emery % (Auto) 5.4 Eos % (Auto) 1.1 Baso % (Auto) 0.4 Absolute Neuts (auto) 5.7 Absolute Lymphs (auto) 3.05 Nucleated RBC % 0 PT 12.5 INR 0.9 APTT 26.7 Sodium 141 Potassium 3.9 Chloride 109 H Carbon Dioxide 24.0 Anion Gap 8 BUN 11 Creatinine 0.67 Estim Creat Clear Calc 82.68 Est GFR (MDRD) Af Amer 116 Est GFR (MDRD) Non-Af 96 BUN/Creatinine Ratio 16.5 Glucose 152 H Calcium 8.8 Radiography Diagnostic Testing: Clinical Impression(s) from Imaging Studies Chest X-Ray 06/10/24 12:04 IMPRESSION: Hyperinflation. The lungs are clear. Electronically Signed: Clayton Grimm MD at 12:27 EDT , Brain CT 06/10/24 12:55 IMPRESSION: Chronic involutional changes of the brain. Electronically Signed: Clayton Grimm MD at 13:12 EDT , Discharge Plan Triage Chief Complaint: Headache ED Provider: Chris Maurer Dx/Rx/DC Orders Clinical Impression: Chronic headaches Instructions: ED Headache Unspecified Prescriptions: No Action lamotrigine 200 mg tablet 200 mg PO BID Patient Comments: take 1 tablet by mouth twice a day paroxetine HCl 30 mg tablet 30 mg PO DAILY Patient Comments: take 2 tablets by mouth once daily alprazolam 2 MG tablet 2 mg PO BID PRN (Reason: Anxiety) lisinopril 20 mg tablet 20 mg PO DAILY Patient Comments: take 1 tablet by mouth once daily aripiprazole 2 mg tablet 2 mg PO DAILY Patient Comments: take 1 tablet by mouth once daily omeprazole 40 mg capsule,delayed release(DR/EC) 20 mg PO DAILY rosuvastatin 10 mg tablet 10 mg PO QHS acetaminophen 500 mg Tablet 500 mg PO Q6H 7 Days Qty: 28 0RF meloxicam 15 mg Tablet 15 mg PO DAILY 30 Days Qty: 30 0RF methocarbamol 500 mg Tablet 750 mg PO TID PRN (Reason: pain/spasms) 7 Days Qty: 30 0RF oxycodone 5 mg Tablet 2.5 - 5 mg PO Q6H PRN (Reason: pain) 5 Days Qty: 20 0RF oxycodone 5 mg tablet 5 mg PO Q6H PRN (Reason: pain) 3 Days Qty: 12 0RF hydroxyzine HCl 50 mg tablet 50 mg PO DAILY Patient Comments: take 1/2 to 2 tablets once daily if needed methocarbamol 750 mg tablet 750 mg PO Q8H Patient Comments: TAKE 1 TABLET BY MOUTH 3CTIMES A DAY IF NEEDED FOR PAIN OR SPASMS FOR 7 DAYS ondansetron [ondansetron] 4 mg tablet,disintegrating 8 mg PO Q8H PRN PRN (Reason: Nausea) Qty: 20 0RF doxycycline monohydrate 100 mg capsule 100 mg PO BID Qty: 20 0RF docusate sodium 100 mg capsule 100 mg PO BID Qty: 14 0RF prochlorperazine maleate [Compazine] 5 mg tablet 5 mg PO TID PRN (Reason: headache) Qty: 20 0RF (DME) Altera Nebulizer System [facility] See Rx Instructions .ROUTE .MEDSUPPLY Qty: 1 3RF Rx Instructions: nebulizer and supplies fluticasone propionate 50 mcg/actuation spray,suspension See Rx Instructions .Route PRN PRN (Reason: Nasal Congestion) Qty: 15.8 3RF Rx Instructions: USE 2 SPRAYS IN EACH NOSTRIL ONCE DAILY (DME) blood-glucose meter [OneTouch Verio Flex meter] [facility] See Rx Instructions .ROUTE .MEDSUPPLY Qty: 1 0RF Rx Instructions: As directed - Check blood sugar daily (DME) Blood Glucose Test Strip See Rx Instructions .ROUTE .MEDSUPPLY Qty: 50 3RF Rx Instructions: use to monitor blood sugar daily for type 2 DM (DME) blood-glucose meter [facility] See Rx Instructions .ROUTE .MEDSUPPLY Qty: 1 0RF Rx Instructions: use to monitor blood sugar daily for type 2 DM (DME) lancets 32 gauge [facility] [place] See Rx Instructions .ROUTE .MEDSUPPLY Qty: 100 3RF Rx Instructions: use to check blood sugar for type 2 DM ipratropium-albuterol 0.5 mg-3 mg(2.5 mg base)/3 mL solution for nebulization 3 ml INHALATION Q8H PRN (Reason: shortness of breath or wheezing) Qty: 90 3RF (DME) OneTouch Verio test strips Strip See Rx Instructions .ROUTE .MEDSUPPLY Qty: 100 3RF Rx Instructions: Check blood sugar daily ondansetron 4 mg tablet,disintegrating 4 mg PO Q8H PRN (Reason: nausea and vomiting) Qty: 30 3RF budesonide-formoterol [Symbicort] 160-4.5 mcg/actuation HFA aerosol inhaler 2 puff INHALATION BID Qty: 10.2 3RF albuterol sulfate [Ventolin HFA] 90 mcg/actuation HFA aerosol inhaler 2 puff INHALATION Q6H PRN (Reason: shortness of breath or wheezing) Qty: 8 3RF Jardiance 25 mg tablet 25 mg PO QAM Qty: 30 0RF Primary Care Provider: Coral Monae NP Referrals: Coral Monae NP, [employer] [Primary Care Provider] - Activity Restrictions/Additional Instructions: Follow-up with your primary care physician in the outpatient setting. Return with worsening symptoms or other concerns. Follow-up with the neurology team outpatient setting. Print Language: Serbian Disposition Disposition: Home, Self Care
== END 2024-06-10 16:39 | disposition home or self-care (01) ==
PROVIDERS: Emergency Provider Emergency Medicine; PCP Internal Medicine; Visit Provider Emergency Medicine
DX: R51.9 Headache, unspecified (principal); F31.9 Bipolar disorder, unspecified; E11.40 Type 2 diabetes mellitus with diabetic neuropathy, unspecified; F41.9 Anxiety disorder, unspecified; E78.00 Pure hypercholesterolemia, unspecified; I10 Essential (primary) hypertension; F17.210 Nicotine dependence, cigarettes, uncomplicated; K21.9 Gastro-esophageal reflux disease without esophagitis
CPT/HCPCS: 70450; 71045; 80048; 85025; 85610; 85730; 93005; 96361; 96374; 96375; 99284; J7030; A4216; J2405

== ENCOUNTER 2024-06-19 18:26 | Emergency (ER) | payer MEDICAID, SELFPAY ==
[2024-06-19 18:27] VITALS: BP 128/92; PULSE 102; RESP 18; TEMP 36.6; O2SAT 97; BMI 24.9
--- NOTE | 2024-06-19 18:43 | CT_ITS ---
EXAM: CT HEAD WITHOUT INTRAVENOUS CONTRAST CLINICAL INDICATION: Seizure. TECHNIQUE: Multiple axial images were obtained of the head without intravenous contrast. This CT exam was performed using one or more of the following dose reduction techniques: automated exposure control, adjustment of the mA and/or kV according to patient size, and/or use of iterative reconstruction technique. RADIATION DOSE: CTDIvol = 44.99 mGy, DLP = 796.11 mGy-cm COMPARISON: CT head without contrast 06/10/2024. FINDINGS: BRAIN AND EXTRA-AXIAL SPACES: Unremarkable. No intra- or extra-axial hemorrhage. No evidence of acute infarct. No intracranial mass or mass effect. There is preservation of the rocha/white matter interface. Posterior fossa structures are unremarkable. Ventricles are appropriate for age. No hydrocephalus. Basal cisterns are patent. BONES/JOINTS: Unremarkable. No discrete lytic or blastic abnormalities. VASCULAR: Calcified plaques in the cavernous segments of both internal carotid arteries and the intradural segments of the vertebral arteries were present previously. SINUSES: Unremarkable as visualized. Clear. MASTOID AIR CELLS: Unremarkable. Clear. ORBITS: Visualized globes, extraocular muscles, optic nerves and retrobulbar fat appear unremarkable. CT/Brain/Head without Contrast IMPRESSION: Negative head/brain CT without intravenous contrast and unchanged when compared to 06/10/2024. Electronically Signed: Tin Winter MD at 20:14 EDT ,
--- NOTE | 2024-06-19 18:44 | EKG12_ITS ---
Test Reason : CP Blood Pressure : / mmHG Vent. Rate : 094 BPM Atrial Rate : 094 BPM P-R Int : 200 ms QRS Dur : 070 ms QT Int : 378 ms P-R-T Axes : 077 065 079 degrees QTc Int : 472 ms Normal sinus rhythm Possible Left atrial enlargement Septal infarct (cited on or before 10-JUN-2024) Abnormal ECG Confirmed by RUBEN DWYER MD ([id number]), video editor BRISEYDA AVERY ([id number]) on 06/21/2024 11:00:02 AM Referred By: KIMBERLY Confirmed By:RUBEN DWYER MD
--- NOTE | 2024-06-19 18:48 | EDS_ITS ---
<Statement entered by Zamzam Marshall MD - 06/19/24 22:03> I have personally performed a face to face assessment of the patient and have reviewed the SHAAN Note. Patient presents secondary to new onset seizure. She states that she was sitting outside in a chair and felt like she was going have a panic attack. She leaned back and tried to do some deep breathing. Boyfriend reports that she had a tonic-clonic seizure lasting approximate 1 minute. She did appear to be postictal. She denies any prior history of seizure. Patient alert appropriate on arrival to the emergency room. Head and neck examination unremarkable. Heart is regular rate and rhythm. Lung sounds are clear. Abdomen soft nontender. Neuroexam is nonfocal. CBC was normal white count 9.7 with 51% neutrophils. Hemoglobin is slightly concentrated at 16.6 with hematocrit of 50.4. Chemistry studies reveal slightly elevated BUN but no significant abnormalities. LFTs significant only for an alk phos of 129. Urinalysis does reveal thousand glucose but no evidence of acute infection. Urine tox screen is positive for cannabinoids. EtOH is negative. CT scan of the head reveals no acute abnormalities. Chest x-ray reveals no focal infiltrate per my interpretation as well as radiology interpretation. EKG is sinus at 94 with no evidence of acute ischemia. Patient was discussed with [facility] neurology. They recommended to the patient the option of discharge to home with close neurology follow-up versus stay in the hospital until MRI could be performed on Friday. Patient would like to go home. Neurology recommended not starting any anticonvulsants until further workup could be performed. Patient advised not to drive. Return instructions given. HPI History of Present Illness Chief Complaint: Seizure Narrative Narrative: 58-year-old female with PMH of HTN, HLD, DM2, bipolar disorder, chronic headaches was brought in by her boyfriend after having a new onset seizure. She was feeling fine today and they were at her uncle's house visiting sitting outside. The patient states she felt anxious like she was going to have a panic attack. Suddenly they noticed that patient's eyes were rolled back and she was not responsive and she had full body convulsions for about a minute. She did not fall out of her chair or have any injuries. She vomited afterwards and lost control of her bladder and bowels. She was confused for several minutes and does not remember the event but now seems back to baseline. She was brought in by private vehicle. She has no personal or family history of seizures. She states she has been in good health this week. She was recently told to stop taking her lisinopril which has been the only recent change. She takes Jardiance for diabetes and did not check her sugar today. She denies alcohol or drug use. [facility] Medical History Wears glasses Anxiety Bipolar disorder Marijuana use Diabetes Arthritis High cholesterol Excessive bleeding Restless legs Back pain Urinary incontinence Flu vaccine need Easy bruising Back pain Essential hypertension Chronic back pain Grief Encounter for screening for malignant neoplasm of lung in current smoker with 30 pack year history or greater Cough Acute exacerbation of chronic low back pain GERD (gastroesophageal reflux disease) Abnormal EKG Panic attack Anxiety and depression Head injury Fall Concussion Muscle spasm Chronic radicular lumbar pain Type 2 diabetes mellitus Post concussion syndrome Vision problems Neuropathy IBS (irritable bowel syndrome) Hyperlipidemia Chronic headaches Hx of emotional problems Carpal tunnel syndrome Asthma Seasonal allergies Home Medications ?Medication ?Instructions ?Recorded ?Last Taken ?Type alprazolam 2 mg tablet 2 mg PO BID PRN Anxiety 03/24/19 01/04/24 History nebulizers (Altera Nebulizer #1 ea 09/06/20 Unknown Rx System) fluticasone propionate 50 See Rx Instructions .Route PRN PRN 11/16/21 01/05/24 Rx mcg/actuation nasal Nasal Congestion #15.8 mL spray,suspension blood-glucose meter (OneTouch #1 ea 11/27/21 Unknown Rx Verio Flex Meter) blood sugar diagnostic (Blood #50 ea 11/28/21 Unknown Rx Glucose Test strips) blood-glucose meter #1 ea 11/28/21 Unknown Rx lancets 32 gauge #100 ea 11/28/21 Unknown Rx lamotrigine 200 mg tablet 200 mg PO BID BIPOLAR 03/12/22 01/04/24 History paroxetine HCl 30 mg tablet 30 mg PO DAILY BIPOLAR 05/08/22 01/04/24 History ipratropium 0.5 mg-albuterol 3 mg 3 ml inhalation Q8H PRN shortness 07/22/22 01/05/24 Rx (2.5 mg base)/3 mL nebulization of breath or wheezing #90 mL soln blood sugar diagnostic (OneTouch #100 ea 08/28/22 Unknown Rx Verio test strips) ondansetron 4 mg disintegrating 4 mg PO Q8H PRN nausea and 09/27/22 Unknown Rx tablet vomiting #30 tabs budesonide-formoterol HFA 160 2 puff inhalation BID ASTHMA #10.2 11/04/22 01/04/24 Rx mcg-4.5 mcg/actuation aerosol grams inhaler (Symbicort) Ventolin HFA 90 mcg/actuation 2 puff inhalation Q6H PRN 12/09/22 01/04/24 Rx aerosol inhaler (albuterol sulfate) shortness of breath or wheezing #8 grams empagliflozin 25 mg tablet 25 mg PO QAM DM #30 tabs 08/25/23 01/04/24 Rx (Jardiance) aripiprazole 2 mg tablet 2 mg PO DAILY BIPOLAR 12/22/23 01/04/24 History lisinopril 20 mg tablet 20 mg PO DAILY HTN 12/22/23 01/05/24 History omeprazole 40 mg capsule,delayed 20 mg PO DAILY GERD 12/22/23 01/05/24 History release rosuvastatin 10 mg tablet 10 mg PO QHS HLD 12/22/23 01/04/24 History acetaminophen 500 mg tablet 500 mg PO Q6H 7 days #28 tabs 01/06/24 Unknown Rx meloxicam 15 mg tablet 15 mg PO DAILY 30 days #30 tabs 01/06/24 Unknown Rx methocarbamol 500 mg tablet 750 mg (1.5 x 500 mg) PO TID PRN 01/06/24 Unknown Rx pain/spasms 7 days #30 tabs oxycodone 5 mg tablet 2.5 - 5 mg (0.5 - 1 x 5 mg) PO Q6H 01/06/24 Unknown Rx PRN pain 5 days #20 tabs oxycodone 5 mg tablet 5 mg PO Q6H PRN pain 3 days #12 01/07/24 Unknown Rx tabs docusate sodium 100 mg capsule 100 mg PO BID #14 caps 01/09/24 Unknown Rx doxycycline monohydrate 100 mg 100 mg PO BID #20 CAPSULES 01/09/24 Unknown Rx capsule hydroxyzine HCl 50 mg tablet 50 mg PO DAILY 01/09/24 Unknown History methocarbamol 750 mg tablet 750 mg PO Q8H 01/09/24 Unknown History ondansetron 4 mg disintegrating 8 mg (2 x 4 mg) PO Q8H PRN PRN 01/09/24 Unknown Rx tablet Nausea #20 tabs prochlorperazine maleate 5 mg 5 mg PO TID PRN headache #20 tabs 05/10/24 Unknown Rx tablet (Compazine) Allergy/AdvReac Type Severity Reaction Status Date / Time red dye Allergy Severe swelling Verified 06/10/24 11:17 carbidopa Allergy Unknown Verified 06/10/24 11:17 gabapentin Allergy Unknown Verified 06/10/24 11:17 latex Allergy Rash Verified 06/10/24 11:17 quetiapine fumarate (From Allergy Other Verified 06/10/24 11:17 Seroquel) topiramate (From Topamax) Allergy Hives Verified 06/10/24 11:17 tramadol HCl (From Ultram) Allergy Other Verified 06/10/24 11:17 amitriptyline AdvReac Vomiting Verified 06/10/24 11:17 aspirin AdvReac Upset Verified 06/10/24 11:17 Stomach cyclobenzaprine HCl (From AdvReac Upset Verified 06/10/24 11:17 Flexeril) Stomach etodolac (Etodolac) AdvReac Vomiting Verified 06/10/24 11:17 hydrocodone bitartrate (From AdvReac Vomiting Verified 06/10/24 11:17 Vicodin) metformin AdvReac Diarrhea Verified 06/10/24 11:17 metoclopramide (From Reglan) AdvReac Other Verified 06/10/24 11:17 naproxen (From Naprosyn) AdvReac Upset Verified 06/10/24 11:17 Stomach propoxyphene napsylate (From AdvReac Vomiting Verified 06/10/24 11:17 Darvocet-N 100) Family History Mother Malignant hyperthermia due to anesthesia Angina pectoris Arthritis Bowel disease Myocardial infarction Heart disease Hypertension High cholesterol CVA (cerebral vascular accident) Father Asthma Arthritis Myocardial infarction Heart disease High cholesterol Hypertension CVA (cerebral vascular accident) Leukemia Diabetes Grandmother Lung cancer Grandfather Diabetes Grandmother Diabetes Surgical History History of back surgery History of rectal surgery History of colonoscopy History of foot surgery History of nasal polypectomy S/P knee surgery History of total hysterectomy History of cholecystectomy History of partial hysterectomy History of Social History household members: none Smoking Status: Current every day smoker tobacco type: cigarettes Tobacco: How many years used: 46 Electronic Cigarette Use: not used how long ago did patient quit smokin+ pack year smoking history (1.5-2 ppd x 32 years, 3 ppd x 14 years). second hand exposure: Yes quit status: considering quitting alcohol intake: never substance use type: does not use what type of physical activity do you participate in: walking and bicycling ROS ROS ED ROS Narrative Constitutional: Negative for fever, chills, malaise. CVS: Negative for chest pain. Respiratory: Negative for shortness of breath. GI: Positive for vomiting. Neuro: Negative for headache, motor/sensory dysfunction. EXAM Physical Exam Narrative Exam Narrative: CONST: Patient sitting in no acute distress. EYES: Normal inspection. PERRL, EOMI. ENT: Normal inspection, moist mucous membranes. No tongue bite. NECK: Normal inspection. RESP: No respiratory distress, CTAB. CVS: Regular rate and rhythm, no murmur, no gallop. ABD: Soft and nontender, no guarding or rebound, nondistendedy. SKIN: Color normal, no rash, warm, dry, intact. EXTREMITIES: Normal appearance, no pedal edema. NEURO: Alert and answering questions appropriately. Face symmetric, cranial nerves II through XII grossly intact, moving all extremities, normal [employer] [place] stren gth in DF/PF, normal finger-nose and [id number]. PSYCH: Normal affect. Const Vital Signs: 06/19/24 18:27 06/19/24 19:29 06/19/24 20:00 Temperature 97.8 F Temperature Source Temporal Pulse Rate 102 H 97 88 Respiratory Rate 18 18 11 L Blood Pressure 128/92 H 120/74 131/85 H Blood Pressure Mean 104 89 100 Pulse Ox 97 93 94 Oxygen Delivery Method Room Air Room Air Room Air MDM MDM MDM Narrative Medical decision making narrative: History gathered from: Patient and significant other Differential: Seizure, syncope, anxiety Consults: Neurology Patient had a 1 minute episode sounding like a new onset generalized seizure with postictal period and bladder and bowel incontinence. By the time of arrival she is awake and alert with stable vital signs. She is back to her baseline and has no focal neurological deficits. Labs show normal white count of 9.7 and slightly elevated hemoglobin of 16.6. BUN is 24, creatinine 0.74. These may indicate mild dehydration. Electrolytes are normal glucose is 120. Urinalysis is negative for infection. Alcohol negative. Talk screen positive for THC. CXR is negative. CT scan of the brain shows no acute process. Patient was treated with IV fluids and seizure precautions and had no recurrent seizure activity while in the department. I placed an [facility] teleneurologist consult and spoke with Dr. Melendrez to relay the history and findings. He recommended she have an MRI of the brain. Since it is Friday and this will not be available till Friday. He recommended offering the patient admission versus outpatient follow-up with neurology for this test with seizure precautions. Patient would like to go home. She states her primary care is actually in the process of referring her to [facility] neurology for her chronic headaches and she will call them on Friday to ensure that this referral is going through. Patient was given seizure precautions such as no driving until follow-up. Dr. Melendrez states with one-time unprovoked seizure she does not require anticonvulsant medication. Patient given return precautions and discharged in stable condition. Lab Data Attestation: I reviewed the patient's lab results. Labs: Laboratory Results - last 24 hr 06/19/24 06/19/24 06/19/24 18:55 19:12 19:53 WBC 9.7 RBC 5.68 H Hgb 16.6 H Hct 50.4 H MCV 88.7 MCH 29.2 MCHC 32.9 RDW Std Deviation 50.8 H RDW Coeff of [place] 16.1 H Plt Count 217 MPV 9.4 Immature Gran % (Auto) 0.500 Neut % (Auto) 51.7 Lymph % (Auto) 39.6 Harper % (Auto) 6.6 Eos % (Auto) 1.2 Baso % (Auto) 0.4 Absolute Neuts (auto) 5.0 Absolute Lymphs (auto) 3.83 Nucleated RBC % 0 Differential Comment SCANNED Sodium 138 Potassium 3.6 Chloride 106 Carbon Dioxide 23.0 Anion Gap 9 BUN 24 H Creatinine 0.74 Estim Creat Clear Calc 73.64 Est GFR (MDRD) Af Amer 103 Est GFR (MDRD) Non-Af 85 BUN/Creatinine Ratio 32.3 H Glucose 125 H Calcium 9.3 Total Bilirubin 0.60 AST 22 ALT 21 Alkaline Phosphatase 129 H Total Protein 7.9 Albumin 4.2 Globulin 3.7 Albumin/Globulin Ratio 1.1 Urine Color Yellow Urine Clarity Clear Urine pH 6.0 Ur Specific [place] 1.020 Urine Protein 30 H Urine Glucose (UA) 1000 H Urine Ketones 50 H Urine Occult Blood 25 H Urine Nitrite Negative Urine Bilirubin Negative Urine Urobilinogen Normal Ur Leukocyte Esterase Negative Urine RBC 0-5 SEEN Urine WBC 0-5 SEEN Ur Squamous Epith Cells 0 SEEN Urine Bacteria 0 SEEN Urine Mucus 0 SEEN Urine Opiates Screen NEGATIVE Urine Methadone Screen NEGATIVE Ur Barbiturates Screen NEGATIVE Ur Phencyclidine Scrn NEGATIVE Ur Amphetamines Screen NEGATIVE MDMA (Ecstasy) Screen NEGATIVE U Benzodiazepines Scrn NEGATIVE Urine Cocaine Screen NEGATIVE U Cannabinoids Screen POSITIVE H Ur Drug Screen Comment Ethyl Alcohol < 3.0 POC Glucose 120 H Radiography Diagnostic Testing: Clinical Impression(s) from Imaging Studies Brain CT 06/19/24 18:43 IMPRESSION: Negative head/brain CT without intravenous contrast and unchanged when compared to 06/10/2024. Electronically Signed: Tin Winter MD at 20:14 EDT , Chest X-Ray 06/19/24 19:19 IMPRESSION: No radiographic evidence of acute cardiopulmonary disease and unchanged when compared to 06/10/2024. Electronically Signed: Tin Winter MD at 20:40 EDT , ED attending interpretation of 1-view chest x-ray shows normal heart size, no acute infiltrate. EKG Initial EKG: Attestation: I personally reviewed and interpreted this EKG as follows: Interpretation: Sinus Rhythm and No Acute Injury Pattern Comments: Normal sinus rhythm at 94 bpm Normal intervals, no acute ischemic changes Discharge Plan Triage Chief Complaint: Seizure ED Midlevel Provider: Vane Correa ED Provider: Zamzam Marshall Dx/Rx/DC Orders Clinical Impression: New onset seizure Instructions: ED Seizure New [facility]O Adult Prescriptions: No Action lamotrigine 200 mg tablet 200 mg PO BID Patient Comments: take 1 tablet by mouth twice a day paroxetine HCl 30 mg tablet 30 mg PO DAILY Patient Comments: take 2 tablets by mouth once daily alprazolam 2 MG tablet 2 mg PO BID PRN (Reason: Anxiety) lisinopril 20 mg tablet 20 mg PO DAILY Patient Comments: take 1 tablet by mouth once daily aripiprazole 2 mg tablet 2 mg PO DAILY Patient Comments: take 1 tablet by mouth once daily omeprazole 40 mg capsule,delayed release(DR/EC) 20 mg PO DAILY rosuvastatin 10 mg tablet 10 mg PO QHS acetaminophen 500 mg Tablet 500 mg PO Q6H 7 Days Qty: 28 0RF meloxicam 15 mg Tablet 15 mg PO DAILY 30 Days Qty: 30 0RF methocarbamol 500 mg Tablet 750 mg PO TID PRN (Reason: pain/spasms) 7 Days Qty: 30 0RF oxycodone 5 mg Tablet 2.5 - 5 mg PO Q6H PRN (Reason: pain) 5 Days Qty: 20 0RF oxycodone 5 mg tablet 5 mg PO Q6H PRN (Reason: pain) 3 Days Qty: 12 0RF hydroxyzine HCl 50 mg tablet 50 mg PO DAILY Patient Comments: take 1/2 to 2 tablets once daily if needed methocarbamol 750 mg tablet 750 mg PO Q8H Patient Comments: TAKE 1 TABLET BY MOUTH 3CTIMES A DAY IF NEEDED FOR PAIN OR SPASMS FOR 7 DAYS ondansetron [ondansetron] 4 mg tablet,disintegrating 8 mg PO Q8H PRN PRN (Reason: Nausea) Qty: 20 0RF doxycycline monohydrate 100 mg capsule 100 mg PO BID Qty: 20 0RF docusate sodium 100 mg capsule 100 mg PO BID Qty: 14 0RF prochlorperazine maleate [Compazine] 5 mg tablet 5 mg PO TID PRN (Reason: headache) Qty: 20 0RF (DME) Altera Nebulizer System Misc See Rx Instructions .ROUTE .MEDSUPPLY Qty: 1 3RF Rx Instructions: nebulizer and supplies fluticasone propionate 50 mcg/actuation spray,suspension See Rx Instructions .Route PRN PRN (Reason: Nasal Congestion) Qty: 15.8 3RF Rx Instructions: USE 2 SPRAYS IN EACH NOSTRIL ONCE DAILY (DME) blood-glucose meter [OneTouch Verio Flex meter] Mis See Rx Instructions .ROUTE .MEDSUPPLY Qty: 1 0RF Rx Instructions: As directed - Check blood sugar daily (DME) Blood Glucose Test Strip See Rx Instructions .ROUTE .MEDSUPPLY Qty: 50 3RF Rx Instructions: use to monitor blood sugar daily for type 2 DM (DME) blood-glucose meter Misc See Rx Instructions .ROUTE .MEDSUPPLY Qty: 1 0RF Rx Instructions: use to monitor blood sugar daily for type 2 DM (DME) lancets 32 gauge misc See Rx Instructions .ROUTE .MEDSUPPLY Qty: 100 3RF Rx Instructions: use to check blood sugar for type 2 DM ipratropium-albuterol 0.5 mg-3 mg(2.5 mg base)/3 mL solution for nebulization 3 ml INHALATION Q8H PRN (Reason: shortness of breath or wheezing) Qty: 90 3RF (DME) OneTouch Verio test strips Strip See Rx Instructions .ROUTE .MEDSUPPLY Qty: 100 3RF Rx Instructions: Check blood sugar daily ondansetron 4 mg tablet,disintegrating 4 mg PO Q8H PRN (Reason: nausea and vomiting) Qty: 30 3RF budesonide-formoterol [Symbicort] 160-4.5 mcg/actuation HFA aerosol inhaler 2 puff INHALATION BID Qty: 10.2 3RF albuterol sulfate [Ventolin HFA] 90 mcg/actuation HFA aerosol inhaler 2 puff INHALATION Q6H PRN (Reason: shortness of breath or wheezing) Qty: 8 3RF Jardiance 25 mg tablet 25 mg PO QAM Qty: 30 0RF Primary Care Provider: Coral Monae NP Referrals: Coral Monae NP, [facility] [Primary Care Provider] - Activity Restrictions/Additional Instructions: I offered admission to stay and have an MRI done but you would like to follow-up outpatient. Call your primary care doctor on Friday and make sure they are push ing through the referral to neurology so that you can be seen promptly. You will need an outpatient MRI of your brain. In the meantime since you are at potential risk of having a seizure again you cannot drive Recommend you avoid bathing or swimming or heights etc. If you have a another seizure or new symptoms come back for reevaluation. Print Language: Greenlandic Disposition Disposition: Home, Self Care
[2024-06-19] MEDS: 0.9% Normal Saline (1000mL) 1,000 ML 1000 ML IV (19:12)
[2024-06-19 19:16] LABS: Absolute Lymphocyte Count 3.83 X10^3/uL (0.83-4.51); Basophil# 0.04 X10^3/uL; Basophil% 0.4 % (0-1); Eosinophil# 0.12 X10^3/uL; Eosinophils% 1.2 % (0-5); Hematocrit 50.4 % (37-47); Hemoglobin 16.6 g/dL (12.0-15.0); Lymphocyte # 3.83 X10^3/ul (0.83-4.51); Lymphocyte % 39.6 % (19-41); Mean Corp Hgb Conc 32.9 g/dL (32-36); Mean Corpuscular Hgb 29.2 pg (27.0-32.0); Mean Corpuscular Volume 88.7 fL (81-99); Mean Platelet Vol. 9.4 fl (6.2-12.0); Monocyte# 0.64 X10^3/uL; Monocyte% 6.6 % (0-10); NRBC Flagged by Analyzer 0 % (0-5); Neutrophil # 4.99 X10^3/uL (2.7-7.7); Neutrophil % 51.7 % (47-70); POSITIVE COUNT YES; Platelet Count 217 K/mm3 (150-450); RBC Distribution Width CV 16.1 % (11.6-14.6); RBC Distribution Width SD 50.8 fl (35.1-43.9); Red Blood Count 5.68 M/mm3 (4.2-5.4); White Blood Count 9.7 K/mm3 (4.4-11.0)
[2024-06-19 19:18] LABS: Differential Indicated SCAN CRITERIA MET
--- NOTE | 2024-06-19 19:19 | RAD_ITS ---
EXAM: XR CHEST, 1 VIEW CLINICAL INDICATION: seizure TECHNIQUE: Frontal view of the chest. COMPARISON: 06/10/2024. FINDINGS: LUNGS AND PLEURAL SPACES: Unremarkable. No consolidation or edema. No pneumothorax. No effusion. HEART: Unremarkable. Cardiac silhouette not enlarged. MEDIASTINUM: Central airways and mediastinal contour are unremarkable. BONES/JOINTS: Unremarkable. No acute fracture. SOFT TISSUES: Unremarkable. RAD/Chest 1 View (Portable) IMPRESSION: No radiographic evidence of acute cardiopulmonary disease and unchanged when compared to 06/10/2024. Electronically Signed: Tin Winter MD at 20:40 EDT ,
[2024-06-19 19:20] LABS: Alcohol, Blood (Medical)-Serum < 3.0 mg/dL
[2024-06-19 19:27] LABS: ALB/GLOB Ratio 1.1 RATIO (0.9-2.4); AST(SGOT) 22 U/L (15-37); Alanine Aminotransfer ALT/SGPT 21 U/L (13-56); Albumin, Serum 4.2 g/dL (3.2-5.0); Alkaline Phosphatase 129 U/L (45-117); Anion Gap 9 (5-15); BUN 24 mg/dL (7-18); BUN/Creat Ratio 32.3 RATIO (10-20); Calcium,Total 9.3 mg/dL (8.5-10.1); Chloride 106 mmol/L (98-107); Creatinine, Serum 0.74 mg/dL (0.55-1.02); EST Glomerular Filtration Rate 85 mL/min (>60); Est Glom Filt Rate - Afr Amer 103 mL/min (>60); Estimated Creatinine Clearance 73.64 ml/min; Globulin 3.7 g/dL (2.2-4.2); Glucose 125 mg/dL (74-106); Potassium 3.6 mmol/L (3.5-5.1); Protein, Total 7.9 g/dL (6.4-8.2); Sodium Level 138 mmol/L (136-145)
[2024-06-19 19:29] VITALS: BP 120/74; PULSE 97; RESP 18; O2SAT 93
[2024-06-19 19:31] LABS: Bedside Glucose 120 mg/dL (74-106)
[2024-06-19 19:37] LABS: Differential Comment SCANNED
[2024-06-19 20:00] VITALS: BP 131/85; PULSE 88; RESP 11; O2SAT 94
[2024-06-19 20:09] LABS: Bacteria 0 SEEN /hpf (None Seen); Mucous, Urine 0 SEEN /hpf (<or=2+); Squamous Epithelial Cells - UA 0 SEEN /hpf (5-10)
[2024-06-19 20:22] LABS: Amphetamine Urine VISTA NEGATIVE (<1000 ng/mL); Barbiturate Urine VISTA NEGATIVE (< 200 ng/mL); Benzodiazepine Urine VISTA NEGATIVE (< 200 ng/mL); Cocaine Urine VISTA NEGATIVE (< 300 ng/mL); Ecstacy Urine VISTA NEGATIVE (< 500 ng/mL); Methadone Urine VISTA NEGATIVE (< 300 ng/mL); PCP Urine VISTA NEGATIVE (< 25 ng/mL); THC Urine VISTA POSITIVE (< 50 ng/mL); Vista UDS pH Range 5
[2024-06-19 20:25] LABS: Color, Urine Yellow (Yellow); Glucose, Dipstick 1000 mg/dl (Normal); Ketone-Dipstick 50 mg/dl (Negative); Leukocyte Esterase-Dipstick Negative /ul (Negative); Nitrite-Dipstick Negative (Negative); Occult Blood-Urine 25 /ul (Negative); Protein-Dipstick 30 mg/dl (Negative); Urine Bilirubin Dipstick Negative (Negative); Urine Clarity Clear (Clear); Urine Urobilinogen Normal (Normal)
[2024-06-19 20:26] LABS: Red Blood Cells-Urine 0-5 SEEN /hpf (0-5); White Blood Cells 0-5 SEEN /hpf (0-5)
[2024-06-19 21:22] VITALS: BP 115/74; PULSE 89; RESP 16; TEMP 36.1; O2SAT 95
== END 2024-06-19 21:23 | disposition home or self-care (01) ==
PROVIDERS: Physician Assistant; Emergency Provider Emergency Medicine; PCP Internal Medicine; Visit Provider Emergency Medicine
DX: G40.409 Other generalized epilepsy and epileptic syndromes, not intractable, without status epilepticus (principal); F31.9 Bipolar disorder, unspecified; E11.40 Type 2 diabetes mellitus with diabetic neuropathy, unspecified; F17.210 Nicotine dependence, cigarettes, uncomplicated; R41.0 Disorientation, unspecified; E78.00 Pure hypercholesterolemia, unspecified; I10 Essential (primary) hypertension; Z79.899 Other long term (current) drug therapy; Z79.84 Long term (current) use of oral hypoglycemic drugs; J45.909 Unspecified asthma, uncomplicated
CPT/HCPCS: 70450; 71045; 80053; 80307; 81001; 82077; 82962; 85025; 93005; 96360; 96361; 99283; J7030; A4216

== ENCOUNTER 2024-06-21 10:39 | Observation (INO) | payer MEDICAID, SELFPAY ==
[2024-06-21] VITALS (9 sets, daily range): BP systolic 117–180; BP diastolic 73–101; PULSE 66–115; RESP 13–22; TEMP 36.1–36.5; O2SAT 96–100; BMI 23.7; BMI 24.4
--- NOTE | 2024-06-21 11:36 | ED.RN ---
PT CALLS THIS RN INTO ROOM AND STATES MY BLOOD PRESSURE KEEPS GOING UP AND I'M GOING TO BE SICK. IT JUST KEEPS GETTING WORSE. WHAT IF I HAVE ANOTHER SEIZURE? THIS RN SEES THAT PTS BP IS 165/108 AT THIS TIME. THIS RN INFORMS DR CHEN OF PTS COMPLAINTS. PT HAS NO ASSIGNED DR YET.
--- NOTE | 2024-06-21 12:36 | RAD_ITS ---
STUDY: X-RAY CHEST REASON FOR EXAM: Female, 58 years old. Chest pain . Photosensitivity. TECHNIQUE: Single AP portable view of the chest. COMPARISON: Comparison is made with prior study dated June 19, 2024. FINDINGS: EKG electrodes are seen. Hyperinflation. The lungs are clear. There is no demonstrated pleural abnormality. Normal size heart. Normal mediastinum and caleb. Normal visualized pulmonary arteries. There is atherosclerotic calcification of the aortic arch with tortuosity. Normal visualized thoracic spine. Normal visualized ribs, clavicles, and shoulders. There is no demonstrated abnormality of the visualized soft tissue structures of the upper abdomen. RAD/Chest 1 View (Portable) IMPRESSION: Hyperinflation. The lungs are clear. Electronically Signed: Clayton Grimm MD at 13:20 EDT ,
--- NOTE | 2024-06-21 12:36 | EKG12_ITS ---
Test Reason : Blood Pressure : / mmHG Vent. Rate : 094 BPM Atrial Rate : 094 BPM P-R Int : 204 ms QRS Dur : 068 ms QT Int : 362 ms P-R-T Axes : 071 066 070 degrees QTc Int : 452 ms Normal sinus rhythm Nonspecific ST abnormality Abnormal ECG Confirmed by REYMUNDO ADLER, RUBEN ([id number]), film and video editor BRISEYDA AVERY ([id number]) on 06/22/2024 8:35:22 AM Referred By: Confirmed By:RUBEN DWYER MD
--- NOTE | 2024-06-21 12:40 | EX.ED.DYSGE1 ---
HPI History of Present Illness Chief Complaint: General Illness Narrative Narrative: 58-year-old female with chronic migraine headaches presenting with headache. She states that she had a witnessed seizure on Friday was brought to the ER for this. She had negative imaging but had a consult from neurology who recommended she be admitted for MRI but she did not want to stay. She reports today that she was confused and scared. She states she has had a worst headache since then. She does not remember the seizure. Apparently she was postictal. Patient states that she had a couple episodes of nausea and vomiting over the weekend but has been able to hold down some food and fluids. She states something is just not right. She also states she feels weird in her chest. She does have a history of anxiety. She states she is very anxious about whether she is going to have a seizure again. She states that she called her primary care who recommended she come back to the emergency room for admission. She has not had any repeat seizures. [facility] Medical History Wears glasses Anxiety Bipolar disorder Marijuana use Diabetes Arthritis High cholesterol Excessive bleeding Restless legs Back pain Urinary incontinence Flu vaccine need Easy bruising Back pain Essential hypertension Chronic back pain Grief Encounter for screening for malignant neoplasm of lung in current smoker with 30 pack year history or greater Cough Acute exacerbation of chronic low back pain GERD (gastroesophageal reflux disease) Abnormal EKG Panic attack Anxiety and depression Head injury Fall Concussion Muscle spasm Chronic radicular lumbar pain Type 2 diabetes mellitus Post concussion syndrome Vision problems Neuropathy IBS (irritable bowel syndrome) Hyperlipidemia Chronic headaches Hx of emotional problems Carpal tunnel syndrome Asthma Seasonal allergies Home Medications ?Medication ?Instructions ?Recorded ?Last Taken ?Type alprazolam 2 mg tablet 2 mg PO BID PRN Anxiety 03/24/19 01/04/24 History nebulizers (Altera Nebulizer #1 ea 09/06/20 Unknown Rx System) fluticasone propionate 50 See Rx Instructions .Route PRN PRN 11/16/21 01/05/24 Rx mcg/actuation nasal Nasal Congestion #15.8 mL spray,suspension blood-glucose meter (OneTouch #1 ea 11/27/21 Unknown Rx Verio Flex Meter) blood sugar diagnostic (Blood #50 ea 11/28/21 Unknown Rx Glucose Test strips) blood-glucose meter #1 ea 11/28/21 Unknown Rx lancets 32 gauge #100 ea 11/28/21 Unknown Rx lamotrigine 200 mg tablet 200 mg PO BID BIPOLAR 03/12/22 01/04/24 History paroxetine HCl 30 mg tablet 30 mg PO DAILY BIPOLAR 05/08/22 01/04/24 History ipratropium 0.5 mg-albuterol 3 mg 3 ml inhalation Q8H PRN shortness 07/22/22 01/05/24 Rx (2.5 mg base)/3 mL nebulization of breath or wheezing #90 mL soln blood sugar diagnostic (OneTouch #100 ea 08/28/22 Unknown Rx Verio test strips) ondansetron 4 mg disintegrating 4 mg PO Q8H PRN nausea and 09/27/22 Unknown Rx tablet vomiting #30 tabs budesonide-formoterol HFA 160 2 puff inhalation BID ASTHMA #10.2 11/04/22 01/04/24 Rx mcg-4.5 mcg/actuation aerosol grams inhaler (Symbicort) Ventolin HFA 90 mcg/actuation 2 puff inhalation Q6H PRN 12/09/22 01/04/24 Rx aerosol inhaler (albuterol sulfate) shortness of breath or wheezing #8 grams empagliflozin 25 mg tablet 25 mg PO QAM DM #30 tabs 08/25/23 01/04/24 Rx (Jardiance) aripiprazole 2 mg tablet 2 mg PO DAILY BIPOLAR 12/22/23 01/04/24 History omeprazole 40 mg capsule,delayed 20 mg PO DAILY GERD 12/22/23 01/05/24 History release rosuvastatin 10 mg tablet 10 mg PO QHS HLD 12/22/23 01/04/24 History ondansetron 4 mg disintegrating 8 mg (2 x 4 mg) PO Q8H PRN PRN 01/09/24 Unknown Rx tablet Nausea #20 tabs acetaminophen 500 mg tablet 500 mg PO PRN 06/21/24 Unknown History baclofen 10 mg tablet 10 mg PO TID 06/21/24 Unknown History Allergy/AdvReac Type Severity Reaction Status Date / Time red dye Allergy Severe swelling Verified 06/10/24 11:17 carbidopa Allergy Unknown Verified 06/10/24 11:17 gabapentin Allergy Unknown Verified 06/10/24 11:17 latex Allergy Rash Verified 06/10/24 11:17 quetiapine fumarate (From Allergy Other Verified 06/10/24 11:17 Seroquel) topiramate (From Topamax) Allergy Hives Verified 06/10/24 11:17 tramadol HCl (From Ultram) Allergy Other Verified 06/10/24 11:17 amitriptyline AdvReac Vomiting Verified 06/10/24 11:17 aspirin AdvReac Upset Verified 06/10/24 11:17 Stomach cyclobenzaprine HCl (From AdvReac Upset Verified 06/10/24 11:17 Flexeril) Stomach etodolac (Etodolac) AdvReac Vomiting Verified 06/10/24 11:17 hydrocodone bitartrate (From AdvReac Vomiting Verified 06/10/24 11:17 Vicodin) metformin AdvReac Diarrhea Verified 06/10/24 11:17 metoclopramide (From Reglan) AdvReac Other Verified 06/10/24 11:17 naproxen (From Naprosyn) AdvReac Upset Verified 06/10/24 11:17 Stomach propoxyphene napsylate (From AdvReac Vomiting Verified 06/10/24 11:17 Darvocet-N 100) Family History Mother Malignant hyperthermia due to anesthesia Angina pectoris Arthritis Bowel disease Myocardial infarction Heart disease Hypertension High cholesterol CVA (cerebral vascular accident) Father Asthma Arthritis Myocardial infarction Heart disease High cholesterol Hypertension CVA (cerebral vascular accident) Leukemia Diabetes Grandmother Lung cancer Grandfather Diabetes Grandmother Diabetes Surgical History History of back surgery History of rectal surgery History of colonoscopy History of foot surgery History of nasal polypectomy S/P knee surgery History of total hysterectomy History of cholecystectomy History of partial hysterectomy History of Social History household members: none Smoking Status: Current every day smoker tobacco type: cigarettes Tobacco: How many years used: 46 Electronic Cigarette Use: not used how long ago did patient quit smokin+ pack year smoking history (1.5-2 ppd x 32 years, 3 ppd x 14 years). second hand exposure: Yes quit status: considering quitting alcohol intake: never substance use type: does not use what type of physical activity do you participate in: walking and bicycling ROS ROS ED Constitutional Constitutional ED: Denies chills, fever(s) or sweats Eyes Eyes: Denies blurry vision or change in vision ENT ENT ED: Denies ear pain or sore throat Cardiovascular Cardiovascular: Denies chest pain, palpitations or racing heartbeat Respiratory/Chest Respiratory/Chest: Denies cough, dyspnea or sputum Gastrointestinal Gastrointestinal: Reports nausea and vomiting; Denies abdominal pain, constipation or diarrhea Genitourinary Genitourinary ED: Denies dysuria, hematuria or urinary frequency Musculoskeletal Musculoskeletal: Denies arthralgias, myalgias or neck pain Integumentary Denies abscess, Abrasions or rash Neurologic Neurologic: Reports headache(s); Denies paresthesias or weakness Psychiatric Psychiatric: Denies anxiety, depression, suicidal ideation or suicidal thoughts Endocrine Endocrinology: Denies polydipsia or polyuria EXAM Physical Exam Const Vital Signs: 06/21/24 10:41 06/21/24 10:50 06/21/24 11:48 Temperature 96.9 F L Temperature Source Temporal Pulse Rate 115 H 99 Respiratory Rate 18 22 H Respiratory Effort Normal Respiratory Pattern Normal Blood Pressure 180/95 H 141/87 H Blood Pressure Mean 123 105 Pulse Ox 98 96 Oxygen Delivery Method Room Air Room Air 06/21/24 12:00 06/21/24 12:57 06/21/24 13:00 Temperature Temperature Source Pulse Rate 88 90 Respiratory Rate 13 19 H Respiratory Effort Respiratory Pattern Blood Pressure 144/101 H 137/82 H Blood Pressure Mean 115 100 Pulse Ox 99 97 Oxygen Delivery Method Room Air 06/21/24 14:00 Temperature Temperature Source Pulse Rate 88 Respiratory Rate 17 Respiratory Effort Respiratory Pattern Blood Pressure 138/87 H Blood Pressure Mean 103 Pulse Ox 97 Oxygen Delivery Method Positive well nourished General Appearance ED: NAD; Negative for pallor HEENT Reports moist mucous membranes Eyes PERRL and EOMs intact bilaterally Neck no lymphadenopathy Chest Wall inspection of chest normal Resp normal respiratory effort and clear to auscultation bilaterally Auscultation: Negative for rales, rhonchi or wheezes Cardio regular rate and regular rhythm GI normal to inspection, nondistended, normoactive bowel sounds Neuro oriented x3, CN's II-XII intact bilaterally and no sensory deficits noted Sensorium / Orientation: alert Motor Exam: strength 5/5 throughout Psych Mood & Affect: anxious Skin no rashes or lesions noted and no wounds General Skin Exam: Negative for jaundice or pallor MDM MDM MDM Narrative Medical decision making narrative: Patient presenting with headache. She reportedly had a seizure on Friday and decided she wanted to go home. She continues to have any as he is anxious she might have another seizure. The recommendation previously was that she be admitted for an MRI given new onset seizure. She is also complaining of discomfort in her chest which may be due to anxiety but is unsure. Differential includes but is not limited to ACS, pneumonia, muscle strain, costochondritis, seizure, migraine, anxiety. CBC will be obtained to assess white blood cell count, hemoglobin, platelets. BMP to assess renal function, electrolytes, glucose. High-sensitivity troponin and EKG to assess for ischemia/dysrhythmia. Chest x-ray to rule out pneumonia. CT brain will be obtained. Patient medicated with Compazine, Benadryl. Apparently she has an incidental allergy. CBC shows normal white blood cell count of 10.5. Hemoglobin 16.0. Renal function and electrolytes within normal limits. High-sensitivity troponin less than 3. Chest x-ray interpreted by myself shows no acute process. The radiologist interprets and agrees. EKG sinus rhythm at 94 bpm without sign of ischemic change or dysrhythmia on my interpretation. CT brain is negative for acute intracranial findings. Will discuss with the hospitalist for admission. Impression: 1. Headache 2. Chest pain 3. Anxiety 4. New onset seizure Lab Data Attestation: I reviewed the patient's lab results. Labs: Laboratory Results - last 24 hr 06/21/24 12:53 WBC 10.5 RBC 5.43 H Hgb 16.0 H Hct 48.1 H MCV 88.6 MCH 29.5 MCHC 33.3 RDW Std Deviation 49.6 H RDW Coeff of [place] 15.5 H Plt Count 275 MPV 9.9 Immature Gran % (Auto) 0.300 Neut % (Auto) 69.7 Lymph % (Auto) 24.9 Charlton % (Auto) 4.5 Eos % (Auto) 0.2 Baso % (Auto) 0.4 Absolute Neuts (auto) 7.3 Absolute Lymphs (auto) 2.60 Nucleated RBC % 0 Sodium 139 Potassium 3.6 Chloride 108 H Carbon Dioxide 22.0 Anion Gap 9 BUN 17 Creatinine 0.61 Estim Creat Clear Calc 85.26 Est GFR (MDRD) Af Amer 129 Est GFR (MDRD) Non-Af 107 BUN/Creatinine Ratio 27.9 H Glucose 118 H Calcium 9.0 Magnesium 2.1 Troponin I High Sens < 3 L Radiography Diagnostic Testing: Clinical Impression(s) from Imaging Studies Chest X-Ray 06/21/24 12:36 IMPRESSION: Hyperinflation. The lungs are clear. Electronically Signed: Clayton Grimm MD at 13:20 EDT , Brain CT 06/21/24 13:15 IMPRESSION: Chronic involutional changes of the brain. Electronically Signed: Clayton Grimm MD at 13:33 EDT , Discharge Plan Triage Chief Complaint: General Illness ED Provider: Raimundo Treviño Dx/Rx/DC Orders Primary Care Provider: Coral Monae NP
[2024-06-21 12:58] LABS: Absolute Neutrophil Count 7.3 X10^3/uL (2.0-7.7); Basophil# 0.04 X10^3/uL; Basophil% 0.4 % (0-1); Eosinophil# 0.02 X10^3/uL; Eosinophils% 0.2 % (0-5); Hematocrit 48.1 % (37-47); Lymphocyte % 24.9 % (19-41); Mean Corp Hgb Conc 33.3 g/dL (32-36); Mean Corpuscular Hgb 29.5 pg (27.0-32.0); Mean Corpuscular Volume 88.6 fL (81-99); Mean Platelet Vol. 9.9 fl (6.2-12.0); Monocyte# 0.47 X10^3/uL; Monocyte% 4.5 % (0-10); NRBC Flagged by Analyzer 0 % (0-5); Neutrophil % 69.7 % (47-70); Platelet Count 275 K/mm3 (150-450); RBC Distribution Width CV 15.5 % (11.6-14.6); RBC Distribution Width SD 49.6 fl (35.1-43.9); Red Blood Count 5.43 M/mm3 (4.2-5.4); White Blood Count 10.5 K/mm3 (4.4-11.0)
[2024-06-21] MEDS: proCHLORPERazine 10 MG/2 ML Vial IV (13:02)
[2024-06-21] MEDS: DiphenhydrAMINE 50 MG/ML Syringe 25 MG IV (13:02)
[2024-06-21] MEDS: 0.9% Normal Saline (1000mL) 1,000 ML 999 ML IV (13:04)
--- NOTE | 2024-06-21 13:15 | CT_ITS ---
STUDY: CT BRAIN WITHOUT CONTRAST REASON FOR EXAM: Female, 58 years old. Headaches. RADIATION DOSAGE (If Supplied By Facility): CTDIvol = ( 44.99 ) mGy, DLP = ( 829.85 ) mGycm TECHNIQUE: Transaxial CT imaging of the brain was performed without administration of intravenous contrast material. Individualized dose optimization techniques were used for this CT. COMPARISON: Comparison is made with prior study dated June 19, 2024 and June 10, 2024. FINDINGS: Normal soft tissue structures. Normal calvarium. There is mild cerebral atrophy with widening of the extra-axial spaces and ventricular dilatation. Normal white matter tracts of the cerebral hemispheres. Normal basal ganglia and thalami. Normal brainstem. Normal cerebellum. There is no intracranial hemorrhage. There are no findings of an acute ischemic infarction. Atherosclerotic calcification of the vertebral arteries and cavernous portions of the internal carotid arteries bilaterally. Normal visualized paranasal sinuses. CT/Brain/Head without Contrast IMPRESSION: Chronic involutional changes of the brain. Electronically Signed: Clayton Grimm MD at 13:33 EDT ,
[2024-06-21 13:25] LABS: Anion Gap 9 (5-15); BUN 17 mg/dL (7-18); BUN/Creat Ratio 27.9 RATIO (10-20); Chloride 108 mmol/L (98-107); Creatinine, Serum 0.61 mg/dL (0.55-1.02); EST Glomerular Filtration Rate 107 mL/min (>60); Est Glom Filt Rate - Afr Amer 129 mL/min (>60); Estimated Creatinine Clearance 85.26 ml/min; Glucose 118 mg/dL (74-106); Potassium 3.6 mmol/L (3.5-5.1); Sodium Level 139 mmol/L (136-145); Troponin-I HS (w/2H Reflex) < 3 pg/mL (3.0-54.0)
--- NOTE | 2024-06-21 14:14 | PCM.HP.STD ---
HPI - General General Date of Admission: 06/21/24 Date of Service: 06/21/24 Chief Complaint: Questionable seizure, headaches. HPI Narrative The patient is a 58 y/o F w/ PMHx: RLS, Anxiety and Depression/Bipolar disorder/Panic attacks, Diabetes mellitus type II, Asthma w/ allergic rhinitis, Chronic headaches, Cannabis usage, Chronic pain syndrome, Tobacco use who presents to the [facility] ED on 06/21/24 with history of chronic persistent migraine headaches now reporting a witnessed seizure on Friday at which point she was brought into the ER with negative imaging with neurology consult with recommendation for MRI but at that time she declined staying but unfortunately on day of presentation she was confused and became more anxious and scared with a worsening headache with no memory of the seizure with reported postictal phase with a couple episodes recently of nausea and emesis over the weekend but ability to hold some fluid down but still not feeling well prompting ED reevaluation. Per report there have been no repeat seizure activities. From description it does not sound like there was any bowel or bladder loss during her prior seizure during prior ED evaluation. She notes that the headaches are primarily in the frontal temporal and the top of her head and notes them to be sharp, pressure-like and throbbing in nature although it can vacillate with light and sound sensitivity. Workup in the ED included T96.9, heart rate 115, BP 180/95, respiratory rate 18, 98% on room air with most recent repeat vital signs heart rate 88, BP 138/87, respiratory rate 17, 97% on room air, CBC with WBC 10.5, hemoglobin 16, MCV 88.6, platelet 275 without marked shift, BMP with chloride 108, glucose 118, troponin less than 3, chest x-ray with hyperinflation with no acute cardiopulmonary findings, CT of the brain with chronic involutional changes with no acute intracranial findings, EKG with sinus rhythm with no acute evidence of ischemia. In the ED patient administered prochlorperazine 10 mg IV times 1, diphenhydramine 25 mg IV x 1 as well as 1 L normal saline. From review of ED evaluation record 06/19/2024 neurology recommended an option of discharged home with close neurology follow-up versus stay in the hospital with MRI of the brain with no initiation of anticonvulsants pending further workup and strict no driving instructions. Currently rating migraines 6/10 as far as discomfort. [facility] Medical History Wears glasses Anxiety Bipolar disorder Marijuana use Diabetes Arthritis High cholesterol Excessive bleeding Restless legs Back pain Urinary incontinence Flu vaccine need Easy bruising Back pain Essential hypertension Chronic back pain Grief Encounter for screening for malignant neoplasm of lung in current smoker with 30 pack year history or greater Cough Acute exacerbation of chronic low back pain GERD (gastroesophageal reflux disease) Abnormal EKG Panic attack Anxiety and depression Head injury Fall Concussion Muscle spasm Chronic radicular lumbar pain Type 2 diabetes mellitus Post concussion syndrome Vision problems Neuropathy IBS (irritable bowel syndrome) Hyperlipidemia Chronic headaches Hx of emotional problems Carpal tunnel syndrome Asthma Seasonal allergies Home Medications ?Medication ?Instructions ?Recorded ?Last Taken ?Type alprazolam 2 mg tablet 2 mg PO BID PRN Anxiety 03/24/19 01/04/24 History nebulizers (Altera Nebulizer #1 ea 09/06/20 Unknown Rx System) fluticasone propionate 50 See Rx Instructions .Route PRN PRN 11/16/21 01/05/24 Rx mcg/actuation nasal Nasal Congestion #15.8 mL spray,suspension blood-glucose meter (OneTouch #1 ea 11/27/21 Unknown Rx Verio Flex Meter) blood sugar diagnostic (Blood #50 ea 11/28/21 Unknown Rx Glucose Test strips) blood-glucose meter #1 ea 11/28/21 Unknown Rx lancets 32 gauge #100 ea 11/28/21 Unknown Rx lamotrigine 200 mg tablet 200 mg PO BID BIPOLAR 03/12/22 01/04/24 History ipratropium 0.5 mg-albuterol 3 mg 3 ml inhalation Q8H PRN shortness 07/22/22 01/05/24 Rx (2.5 mg base)/3 mL nebulization of breath or wheezing #90 mL soln blood sugar diagnostic (OneTouch #100 ea 08/28/22 Unknown Rx Verio test strips) ondansetron 4 mg disintegrating 4 mg PO Q8H PRN nausea and 09/27/22 Unknown Rx tablet vomiting #30 tabs budesonide-formoterol HFA 160 2 puff inhalation BID ASTHMA #10.2 11/04/22 01/04/24 Rx mcg-4.5 mcg/actuation aerosol grams inhaler (Symbicort) Ventolin HFA 90 mcg/actuation 2 puff inhalation Q6H PRN 12/09/22 01/04/24 Rx aerosol inhaler (albuterol sulfate) shortness of breath or wheezing #8 grams empagliflozin 25 mg tablet 25 mg PO QAM DM #30 tabs 08/25/23 01/04/24 Rx (Jardiance) aripiprazole 2 mg tablet 2 mg PO DAILY BIPOLAR 12/22/23 01/04/24 History omeprazole 40 mg capsule,delayed 20 mg PO DAILY GERD 12/22/23 01/05/24 History release rosuvastatin 10 mg tablet 10 mg PO QHS HLD 12/22/23 01/04/24 History acetaminophen 500 mg tablet 500 mg PO PRN 06/21/24 Unknown History baclofen 10 mg tablet 10 mg PO TID 06/21/24 Unknown History Allergy/AdvReac Type Severity Reaction Status Date / Time red dye Allergy Severe swelling Verified 06/10/24 11:17 carbidopa Allergy Unknown Verified 06/10/24 11:17 gabapentin Allergy Unknown Verified 06/10/24 11:17 latex Allergy Rash Verified 06/10/24 11:17 quetiapine fumarate (From Allergy Other Verified 06/10/24 11:17 Seroquel) topiramate (From Topamax) Allergy Hives Verified 06/10/24 11:17 tramadol HCl (From Ultram) Allergy Other Verified 06/10/24 11:17 amitriptyline AdvReac Vomiting Verified 06/10/24 11:17 aspirin AdvReac Upset Verified 06/10/24 11:17 Stomach cyclobenzaprine HCl (From AdvReac Upset Verified 06/10/24 11:17 Flexeril) Stomach etodolac (Etodolac) AdvReac Vomiting Verified 06/10/24 11:17 hydrocodone bitartrate (From AdvReac Vomiting Verified 06/10/24 11:17 Vicodin) metformin AdvReac Diarrhea Verified 06/10/24 11:17 metoclopramide (From Reglan) AdvReac Other Verified 06/10/24 11:17 naproxen (From Naprosyn) AdvReac Upset Verified 06/10/24 11:17 Stomach propoxyphene napsylate (From AdvReac Vomiting Verified 06/10/24 11:17 Darvocet-N 100) Family History Mother Malignant hyperthermia due to anesthesia Angina pectoris Arthritis Bowel disease Myocardial infarction Heart disease Hypertension High cholesterol CVA (cerebral vascular accident) Father Asthma Arthritis Myocardial infarction Heart disease High cholesterol Hypertension CVA (cerebral vascular accident) Leukemia Diabetes Grandmother Lung cancer Grandfather Diabetes Grandmother Diabetes Surgical History History of back surgery History of rectal surgery History of colonoscopy History of foot surgery History of nasal polypectomy S/P knee surgery History of total hysterectomy History of cholecystectomy History of partial hysterectomy History of Social History household members: none Smoking Status: Current every day smoker tobacco type: cigarettes Tobacco: How many years used: 46 Electronic Cigarette Use: not used how long ago did patient quit smokin+ pack year smoking history (1.5-2 ppd x 32 years, 3 ppd x 14 years). second hand exposure: Yes quit status: considering quitting alcohol intake: never substance use type: does not use what type of physical activity do you participate in: walking and bicycling ROS ROS Narrative Admission Review of Systems: CONSTITUTIONAL: No weight loss, fever, chills, + weakness or fatigue. HEENT: + Ongoing intractable migraine headaches, light and sound sensitivity. Eyes: No visual loss, blurred vision, double vision or yellow sclerae. Ears, Nose, Throat: No hearing loss, sneezing, congestion, runny nose or sore throat. SKIN: No rash or itching, lesions, wounds. CARDIOVASCULAR: No chest pain, chest pressure or chest discomfort, palpitations, edema, orthopnea, syncopal events. RESPIRATORY: No shortness of breath, cough or sputum, wheezing, hemoptysis. GASTROINTESTINAL: + Anorexia, nausea, vomiting. No diarrhea, abdominal pain, melena, BRBPR. GENITOURINARY: No dysuria, frequency, urgency or retention. NEUROLOGICAL: + Ongoing intractable migraine headaches with light and sound sensitivity, ? seizure. No dizziness, syncope, paralysis, ataxia, numbness or tingling in the extremities, focal weakness, change in bowel or bladder control. MUSCULOSKELETAL: + muscle, back pain, joint pain or stiffness. HEMATOLOGIC: No anemia, bleeding or bruising. LYMPHATICS: No enlarged nodes. No history of splenectomy. PSYCHIATRIC: History of anxiety and depression/bipolar disorder/panic attack.+ ENDOCRINOLOGIC: No reports of sweating, cold or heat intolerance. No polyuria or polydipsia. ALLERGIES: + Asthma, allergic rhinitis, history of hives. Vital Signs Vital Signs Vital Signs: 06/21/24 10:41 06/21/24 10:50 06/21/24 11:48 Temperature 96.9 F L Temperature Source Temporal Pulse Rate 115 H 99 Respiratory Rate 18 22 H Respiratory Effort Normal Respiratory Pattern Normal Blood Pressure 180/95 H 141/87 H Blood Pressure Mean 123 105 Pulse Ox 98 96 Oxygen Delivery Method Room Air Room Air 06/21/24 12:00 06/21/24 12:57 06/21/24 13:00 Temperature Temperature Source Pulse Rate 88 90 Respiratory Rate 13 19 H Respiratory Effort Respiratory Pattern Blood Pressure 144/101 H 137/82 H Blood Pressure Mean 115 100 Pulse Ox 99 97 Oxygen Delivery Method Room Air 06/21/24 14:00 Temperature Temperature Source Pulse Rate 88 Respiratory Rate 17 Respiratory Effort Respiratory Pattern Blood Pressure 138/87 H Blood Pressure Mean 103 Pulse Ox 97 Oxygen Delivery Method Weight Weight: 134 lb 1.6 oz Body Mass Index (BMI) 23.7 Physical Exam Narrative Physical Examination: General: Awake, alert, oriented x 3 and cooperative, seated upright in the ED bed, fatigued, light off, reports ongoing sound and light sensitivity with her current migraine. Skin: Normal color, normal turgor, no icterus, no cyanosis. HEENT: AT/NC, EOMI, PERRLA, dry MM, no carotid bruits or JVD noted. Lungs: CTA bilaterally, moderate effort, mild decrease BL bases, no rales, ronchi or wheezing. Heart: Regular rate and rhythm; no gallop, rub audible. Abdomen: Soft, NTTP, ND, hyperactive BS, no HSM. Extremities: No cyanosis, clubbing, or edema. Neurological: Patient awake, alert, oriented as noted, cognitive function intact; pupils equally reactive to light and accommodation, cranial nerves grossly normal, moving all 4 extremities, no focal deficits, strength moderately global decreased secondary to acute presentations. Psychiatric: Affect appears flat, fatigued, notes ongoing migraine, no acute evidence of depressive or anxiety feelings but does have underlying history. Results Lab / Micro Data 06/21/24 12:53 06/21/24 12:53 Labs: Laboratory Results - last 24 hr 06/21/24 12:53: WBC 10.5, RBC 5.43 H, Hgb 16.0 H, Hct 48.1 H, MCV 88.6, MCH 29.5, MCHC 33.3, RDW Std Deviation 49.6 H, RDW Coeff of Salvador 15.5 H, Plt Count 275, MPV 9.9, Immature Gran % (Auto) 0.300, Neut % (Auto) 69.7, Lymph % (Auto) 24.9, Grady % (Auto) 4.5, Eos % (Auto) 0.2, Baso % (Auto) 0.4, Absolute Neuts (auto) 7.3, Absolute Lymphs (auto) 2.60, Nucleated RBC % 0, Sodium 139, Potassium 3.6, Chloride 108 H, Carbon Dioxide 22.0, Anion Gap 9, BUN 17, Creatinine 0.61, Estim Creat Clear Calc 85.26, Est GFR (MDRD) Af Amer 129, Est GFR (MDRD) Non-Af 107, BUN/Creatinine Ratio 27.9 H, Glucose 118 H, Calcium 9.0, Troponin I High Sens < 3 L Imaging Radiology Impression Chest X-Ray 06/21/24 12:36 IMPRESSION: Hyperinflation. The lungs are clear. Electronically Signed: Clayton Grimm MD at 13:20 EDT , Brain CT 06/21/24 13:15 IMPRESSION: Chronic involutional changes of the brain. Electronically Signed: Clayton Grimm MD at 13:33 EDT , Assessment & Plan Assessment/Plan (1) Intractable migraine: (2) New onset seizure: PLAN: Plan The patient is a 58 y/o F w/ PMHx: RLS, Anxiety and Depression/Bipolar disorder/Panic attacks, Diabetes mellitus type II, Asthma w/ allergic rhinitis, Chronic headaches, Cannabis usage, Chronic pain syndrome, Tobacco use who presents to the [facility] ED on 06/21/24 with history of chronic persistent migraine headaches now reporting a witnessed seizure on Friday at which point she was brought into the ER with negative imaging with neurology consult with recommendation for MRI but at that time she declined staying but unfortunately on day of presentation she was confused and became more anxious and scared with a worsening headache with no memory of the seizure with reported postictal phase with a couple episodes recently of nausea and emesis over the weekend but ability to hold some fluid down but still not feeling well prompting ED reevaluation. #1. Questionable new-onset seizure with Acute on Chronic Intractable Migraine: From patient description seizure witnessed with postictal state was present at that time. ED evaluation at that time with neurology recommendation for MRI of the brain however they were also amenable to outpatient follow-up closely with neurology with outpatient MRI, no driving and close early follow-up which she had performed at that time. Current presentation with repeat CT head without acute intracranial pathology. Will admit to PCU, maintain on telemetry in PCU on seizure precautions, obtain EEG, obtain brain MRI and MRA of the brain, obtain TSH, obtain magnesium level. Will defer AED per prior Neurology recommendation but request repeat evaluation. Will hold narcotic therapy give this may exacerbate migraine, initiate IV VPA 500mg Q6 hours, IV Decadron 4mg Q6 hours, Neurontin 100mg TID. #2. Elevated BP without hypertensive diagnosis: Patient on presentation with elevated BP above goal however this did improve throughout ED evaluation, continue to monitor and if remains elevated and more consistent with hypertensive disease and will add oral regimen, as needed IV hydralazine in interim. #3. Anxiety and depression/bipolar disorder/panic attacks: Given intractable current presentation and patient already was dosed with her lamotrigine regimen on day of presentation will temporally hold while utilizing IV Depakote regimen for intractable migraine, once de-escalate off this resume her lamotrigine regimen at that time, continue patient home aripiprazole regimen as well as alprazolam regimen. #4. Chronic asthma with allergic rhinitis: Will temporally hold home inhaler in the interim placed on ATC budesonide therapy, PRN albuterol, HOB, IS parameters, continue patient home fluticasone regimen. #5. Chronic pain syndrome: We will continue patient home chronic baclofen regimen, encourage frequent positional changes. #6. Diabetes mellitus type II: Hold oral home regimen, ADA diet, accu checks w/ ISS. #7. Hyperlipidemia: We will continue patient on statin therapy. #8. Tobacco Abuse: Encouraged cessation, inpatient consultation per RT, NR if desired. #9. Restless leg syndrome: Per current regimen does not appear to be on any medication, may add if necessary. #10. GERD: Continue patient on PPI. #11. DVT prophylaxis: Lovenox. #12. CODE STATUS: Full code. Charges/Coding Visit Charges Inpatient E&M: 36048 Init Hosp L3
--- NOTE | 2024-06-21 14:23 | NURSING ---
PCU OBS WHITE HEADACHE
[2024-06-21 14:45] LABS: Magnesium 2.1 mg/dL (1.6-2.6)
[2024-06-21 14:56] LABS: Reflex Troponin-HS? (from REC) Y
[2024-06-21] MEDS: Gabapentin 100 MG Capsule PO (17:00)
[2024-06-21] MEDS: dexAMETHasone 4 MG/ML Vial IV (17:05)
[2024-06-21] MEDS: 0.9% Normal Saline (1000mL) 1,000 ML 100 ML IV (17:05)
[2024-06-21] MEDS: 0.9% Saline Lock 10 ML Syringe IV (17:07)
[2024-06-21] MEDS: Valproate Sodium 500 MG in Dextrose 5%-Water (50mL Bag) 50 ML 50 MG IV (17:10)
[2024-06-21 17:30] LABS: Bedside Glucose 85 mg/dL (74-106)
[2024-06-21] MEDS: Budesonide Respules 0.5 MG/2 ML AMPUL.NEB. INHALATION (19:11)
[2024-06-21] MEDS: Atorvastatin Calcium 20 MG Tablet PO (21:21)
[2024-06-21] MEDS: Baclofen 10 MG Tablet PO (21:21)
[2024-06-21 21:45] LABS: Bedside Glucose 141 mg/dL (74-106)
[2024-06-22] MEDS: Valproate Sodium 500 MG in Dextrose 5%-Water (50mL Bag) 50 ML 50 MG IV ×3 (00:42→11:59)
[2024-06-22] MEDS: dexAMETHasone 4 MG/ML Vial IV ×3 (00:42→11:38)
[2024-06-22] MEDS: 0.9% Saline Lock 10 ML Syringe IV ×2 (00:42→05:29)
[2024-06-22 02:40] VITALS: BP 120/75; PULSE 90; RESP 16; TEMP 36.6; O2SAT 96
[2024-06-22] MEDS: 0.9% Normal Saline (1000mL) 1,000 ML 100 ML IV (05:21)
[2024-06-22] MEDS: Baclofen 10 MG Tablet PO ×2 (05:30→14:07)
[2024-06-22] MEDS: Budesonide Respules 0.5 MG/2 ML AMPUL.NEB. INHALATION (05:48)
[2024-06-22 05:49] VITALS: PULSE 78; RESP 16
[2024-06-22 06:00] VITALS: BMI 24.2
[2024-06-22 06:43] LABS: Absolute Neutrophil Count 8.1 X10^3/uL (2.0-7.7); Basophil# 0.02 X10^3/uL; Basophil% 0.2 % (0-1); Hematocrit 48.8 % (37-47); Hemoglobin 16.3 g/dL (12.0-15.0); Lymphocyte % 18.6 % (19-41); Mean Corp Hgb Conc 33.4 g/dL (32-36); Mean Corpuscular Hgb 29.3 pg (27.0-32.0); Mean Corpuscular Volume 87.6 fL (81-99); Mean Platelet Vol. 9.3 fl (6.2-12.0); Monocyte# 0.15 X10^3/uL; Monocyte% 1.5 % (0-10); NRBC Flagged by Analyzer 0 % (0-5); Neutrophil # 8.14 X10^3/uL (2.7-7.7); Neutrophil % 79.4 % (47-70); Platelet Count 263 K/mm3 (150-450); RBC Distribution Width CV 15.2 % (11.6-14.6); RBC Distribution Width SD 48.6 fl (35.1-43.9); Red Blood Count 5.57 M/mm3 (4.2-5.4); White Blood Count 10.2 K/mm3 (4.4-11.0)
[2024-06-22 06:50] VITALS: PULSE 93; RESP 16
[2024-06-22] MEDS: Albuterol 2.5 MG/3 ML VIAL.NEB. INHALATION (06:50)
[2024-06-22] MEDS: Insulin Lispro 100 UNIT/ML INSULN.PEN SC ×2 (07:07→11:25)
[2024-06-22] MEDS: Acetaminophen 325 MG Tablet 650 MG PO (07:08)
[2024-06-22 07:10] LABS: Bedside Glucose 155 mg/dL (74-106)
[2024-06-22 07:32] LABS: AST(SGOT) 13 U/L (15-37); Alanine Aminotransfer ALT/SGPT 17 U/L (13-56); Albumin, Serum 3.8 g/dL (3.2-5.0); Alkaline Phosphatase 124 U/L (45-117); Anion Gap 12 (5-15); BUN 17 mg/dL (7-18); BUN/Creat Ratio 27.9 RATIO (10-20); Calcium,Total 9.2 mg/dL (8.5-10.1); Chloride 108 mmol/L (98-107); Creatinine, Serum 0.61 mg/dL (0.55-1.02); EST Glomerular Filtration Rate 106 mL/min (>60); Est Glom Filt Rate - Afr Amer 129 mL/min (>60); Estimated Creatinine Clearance 82.14 ml/min; Globulin 3.8 g/dL (2.2-4.2); Glucose 148 mg/dL (74-106); Potassium 3.7 mmol/L (3.5-5.1); Protein, Total 7.6 g/dL (6.4-8.2); Sodium Level 139 mmol/L (136-145); Thyroid Stim Hormone (TSH) 0.75 uIU/mL (0.358-3.74)
[2024-06-22 08:32] VITALS: BP 130/92; PULSE 97; RESP 17; TEMP 36.2; O2SAT 98
[2024-06-22] MEDS: Gabapentin 100 MG Capsule PO ×2 (08:37→11:38)
[2024-06-22] MEDS: Fluticasone 0.05% 1 SPRAY NASAL.SRY 2 SPRAY NASAL (08:37)
[2024-06-22] MEDS: ARIPiprazole 2 MG Tablet PO (08:37)
[2024-06-22] MEDS: LORazepam 1 MG Tablet 2 MG PO (08:37)
[2024-06-22] MEDS: Enoxaparin 40 MG/0.4 ML Syringe SC (08:38)
[2024-06-22] MEDS: Pantoprazole Sodium 20 MG Tablet PO (08:38)
--- NOTE | 2024-06-22 08:53 | CON.PCM.NE_ITS ---
Assessment and Plan: Neuro Assessment/Plan RHONDA MORRISON is a 58 F with a past medical history of Anxiety and Depression/Bipolar disorder/Panic attacks, Diabetes mellitus type II, Asthma w/ allergic rhinitis, Chronic headaches, Cannabis usage, Chronic pain syndrome, being evaluated by Teleneurology for seizure and severe headache. Based on history, seizure is unclear if epileptic vs stress and non-epileptic however given this is first time ever event, would not start AED. Headache symptoms are mixed with migrainous and tension components. Exam consistent with her baseline weakness in the LLE. Based on new type of headache and new seizure, imaging and full workup is important to rule out other causes of these symptoms including masses, neuroinfectious or neuroimmunologic issues. Plan: - EEG pending - MRI Brain read pending - recommend lidocaine patch to the L neck and 2mg IV Mg to assist with her headache I personally attended this patient and spent a total time of 45minutes evaluating this patient including clinical assessment, review of chart, medical history imaging, and determining appropriate treatment and workup. HPI Consult Data Date of Consult: 06/22/24 HPI Narrative HPI Narrative: The patient is a 58 y/o F w/ PMHx: RLS, Anxiety and Depression/Bipolar disorder/Panic attacks, Diabetes mellitus type II, Asthma w/ allergic rhinitis, Chronic headaches, Cannabis usage, Chronic pain syndrome, Tobacco use who presents to the [facility] ED on 06/21/24 with history of chronic persistent migraine headaches now reporting a witnessed seizure on Friday at which point she was brought into the ER with negative imaging with neurology consult with recommendation for MRI but at that time she declined staying but unfortunately on day of presentation she was confused and became more anxious and scared with a worsening headache with no memory of the seizure with reported postictal phase with a couple episodes recently of nausea and emesis over the weekend but ability to hold some fluid down but still not feeling well prompting ED reevaluation. Per report there have been no repeat seizure activities. From description it does not sound like there was any bowel or bladder loss during her prior seizure during prior ED evaluation. She notes that the headaches are primarily in the frontal temporal and the top of her head and notes them to be sharp, pressure-like and throbbing in nature although it can vacillate with light and sound sensitivity. Workup in the ED included T96.9, heart rate 115, BP 180/95, respiratory rate 18, 98% on room air with most recent repeat vital signs heart rate 88, BP 138/87, respiratory rate 17, 97% on room air, CBC with WBC 10.5, hemoglobin 16, MCV 88.6, platelet 275 without marked shift, BMP with chloride 108, glucose 118, troponin less than 3, chest x-ray with hyperinflation with no acute cardiopulmonary findings, CT of the brain with chronic involutional changes with no acute intracranial findings, EKG with sinus rhythm with no acute evidence of ischemia. In the ED patient administered prochlorperazine 10 mg IV times 1, diphenhydramine 25 mg IV x 1 as well as 1 L normal saline. From review of ED evaluation record 06/19/2024 neurology recommended an option of discharged home with close neurology follow-up versus stay in the hospital with MRI of the brain with no initiation of anticonvulsants pending further workup and strict no driving instructions. Currently rating migraines 6/10 as far as discomfort. Neurologic History: Pt normally has headaches, but lately has been getting pressure headache couple weeks ago. typical RICKS are behind the eye. Will take tylenol for her typical headache, also took for new RICKS but didn't work at home. Current RICKS was 6/10, yesterday was 8/10. No nausea/vomitting currently but has been having it intermittently. Has had shooting lights in the eyes and photophobia with the new typc of headache. No new medications per pt. Will take the Xanax 3-5 times a week, on baclofen PRN takes 2-3 days for back pain. Still on aripriprazole. Was taken off lisinopril last week. Pt was at her uncle's sitting on the patio. [place] like there was anxiety and was trying to do breathing. Did not smeel or taste anything. Never had a seizure before. Pt's eyes open, head tilted back, and shaking all over, jaw tight. Event lasted for 60 sec, then vomitted. Was confused for the rest of the day and was still confused. After throwing up, had to use the restroom (pt does not remember things). Has not had panic attack like this but has had more stressors lately. Her typical panic attack will start with heat, shaking, nausea but will not lose consciousness. After the seizure, no face or weakness in arms and legs on one side more than another. Vision feels fuzzier on the L than the R. [facility] Medical History Wears glasses Anxiety Bipolar disorder Marijuana use Diabetes Arthritis High cholesterol Excessive bleeding Restless legs Back pain Urinary incontinence Flu vaccine need Easy bruising Back pain Essential hypertension Chronic back pain Grief Encounter for screening for malignant neoplasm of lung in current smoker with 30 pack year history or greater Cough Acute exacerbation of chronic low back pain GERD (gastroesophageal reflux disease) Abnormal EKG Panic attack Anxiety and depression Head injury Fall Concussion Muscle spasm Chronic radicular lumbar pain Type 2 diabetes mellitus Post concussion syndrome Vision problems Neuropathy IBS (irritable bowel syndrome) Hyperlipidemia Chronic headaches Hx of emotional problems Carpal tunnel syndrome Asthma Seasonal allergies Home Medications ?Medication ?Instructions ?Recorded ?Last Taken ?Type alprazolam 2 mg tablet 2 mg PO BID PRN Anxiety 03/24/19 01/04/24 History nebulizers (Altera Nebulizer #1 ea 09/06/20 Unknown Rx System) fluticasone propionate 50 See Rx Instructions .Route PRN PRN 11/16/21 01/05/24 Rx mcg/actuation nasal Nasal Congestion #15.8 mL spray,suspension blood-glucose meter (OneTouch #1 ea 11/27/21 Unknown Rx Verio Flex Meter) blood sugar diagnostic (Blood #50 ea 11/28/21 Unknown Rx Glucose Test strips) blood-glucose meter #1 ea 11/28/21 Unknown Rx lancets 32 gauge #100 ea 11/28/21 Unknown Rx lamotrigine 200 mg tablet 200 mg PO BID BIPOLAR 03/12/22 01/04/24 History ipratropium 0.5 mg-albuterol 3 mg 3 ml inhalation Q8H PRN shortness 07/22/22 01/05/24 Rx (2.5 mg base)/3 mL nebulization of breath or wheezing #90 mL soln blood sugar diagnostic (OneTouch #100 ea 08/28/22 Unknown Rx Verio test strips) ondansetron 4 mg disintegrating 4 mg PO Q8H PRN nausea and 09/27/22 Unknown Rx tablet vomiting #30 tabs budesonide-formoterol HFA 160 2 puff inhalation BID ASTHMA #10.2 11/04/22 01/04/24 Rx mcg-4.5 mcg/actuation aerosol grams inhaler (Symbicort) Ventolin HFA 90 mcg/actuation 2 puff inhalation Q6H PRN 12/09/22 01/04/24 Rx aerosol inhaler (albuterol sulfate) shortness of breath or wheezing #8 grams empagliflozin 25 mg tablet 25 mg PO QAM DM #30 tabs 08/25/23 01/04/24 Rx (Jardiance) aripiprazole 2 mg tablet 2 mg PO DAILY BIPOLAR 12/22/23 01/04/24 History omeprazole 40 mg capsule,delayed 20 mg PO DAILY GERD 12/22/23 01/05/24 History release rosuvastatin 10 mg tablet 10 mg PO QHS HLD 12/22/23 01/04/24 History acetaminophen 500 mg tablet 500 mg PO PRN 06/21/24 Unknown History baclofen 10 mg tablet 10 mg PO TID 06/21/24 Unknown History Allergy/AdvReac Type Severity Reaction Status Date / Time red dye Allergy Severe swelling Verified 06/10/24 11:17 carbidopa Allergy Unknown Verified 06/10/24 11:17 gabapentin Allergy Unknown Verified 06/10/24 11:17 latex Allergy Rash Verified 06/10/24 11:17 quetiapine fumarate (From Allergy Other Verified 06/10/24 11:17 Seroquel) topiramate (From Topamax) Allergy Hives Verified 06/10/24 11:17 tramadol HCl (From Ultram) Allergy Other Verified 06/10/24 11:17 amitriptyline AdvReac Vomiting Verified 06/10/24 11:17 aspirin AdvReac Upset Verified 06/10/24 11:17 Stomach cyclobenzaprine HCl (From AdvReac Upset Verified 06/10/24 11:17 Flexeril) Stomach etodolac (Etodolac) AdvReac Vomiting Verified 06/10/24 11:17 hydrocodone bitartrate (From AdvReac Vomiting Verified 06/10/24 11:17 Vicodin) metformin AdvReac Diarrhea Verified 06/10/24 11:17 metoclopramide (From Reglan) AdvReac Other Verified 06/10/24 11:17 naproxen (From Naprosyn) AdvReac Upset Verified 06/10/24 11:17 Stomach propoxyphene napsylate (From AdvReac Vomiting Verified 06/10/24 11:17 Darvocet-N 100) Family History Mother Malignant hyperthermia due to anesthesia Angina pectoris Arthritis Bowel disease Myocardial infarction Heart disease Hypertension High cholesterol CVA (cerebral vascular accident) Father Asthma Arthritis Myocardial infarction Heart disease High cholesterol Hypertension CVA (cerebral vascular accident) Leukemia Diabetes Grandmother Lung cancer Grandfather Diabetes Grandmother Diabetes Surgical History History of back surgery History of rectal surgery History of colonoscopy History of foot surgery History of nasal polypectomy S/P knee surgery History of total hysterectomy History of cholecystectomy History of partial hysterectomy History of Social History household members: none Smoking Status: Current every day smoker tobacco type: cigarettes Tobacco: How many years used: 46 Electronic Cigarette Use: not used how long ago did patient quit smokin+ pack year smoking history (1.5-2 ppd x 32 years, 3 ppd x 14 years). second hand exposure: Yes quit status: considering quitting alcohol intake: never substance use type: does not use what type of physical activity do you participate in: walking and bicycling Vital Signs Vital Signs Vital Signs: 06/21/24 10:41 06/21/24 10:50 06/21/24 11:48 Temperature 96.9 F L Temperature Source Temporal Pulse Rate 115 H 99 Pulse Strength Respiratory Rate 18 22 H Respiratory Effort Normal Respiratory Depth Respiratory Pattern Normal Blood Pressure 180/95 H 141/87 H Blood Pressure Mean 123 105 Blood Pressure Source Blood Pressure Position Blood Pressure Location Pulse Ox 98 96 Oxygen Delivery Method Room Air Room Air 06/21/24 12:00 06/21/24 12:57 06/21/24 13:00 Temperature Temperature Source Pulse Rate 88 90 Pulse Strength Respiratory Rate 13 19 H Respiratory Effort Respiratory Depth Respiratory Pattern Blood Pressure 144/101 H 137/82 H Blood Pressure Mean 115 100 Blood Pressure Source Blood Pressure Position Blood Pressure Location Pulse Ox 99 97 Oxygen Delivery Method Room Air 06/21/24 14:00 06/21/24 14:20 06/21/24 15:55 Temperature 97.3 F L 97.7 F L Temperature Source Temporal Pulse Rate 88 87 66 Pulse Strength Respiratory Rate 17 17 18 Respiratory Effort Respiratory Depth Respiratory Pattern Blood Pressure 138/87 H 142/93 H 135/77 H Blood Pressure Mean 103 109 96 Blood Pressure Source Monitor Blood Pressure Position Semi-Fowlers Blood Pressure Location Left Arm Pulse Ox 97 97 100 Oxygen Delivery Method Room Air 06/21/24 19:11 06/21/24 21:00 06/21/24 21:14 Temperature 97.7 F L Temperature Source Temporal Pulse Rate 76 81 Pulse Strength Respiratory Rate 18 16 Respiratory Effort Normal Short of Breath Respiratory Depth Normal Respiratory Pattern Normal Normal Blood Pressure 117/73 Blood Pressure Mean 87 Blood Pressure Source Monitor Blood Pressure Position Left Lateral Blood Pressure Location Right Arm Pulse Ox 96 Oxygen Delivery Method Room Air Room Air 06/22/24 02:40 06/22/24 05:49 06/22/24 07:01 Temperature 98 F Temperature Source Temporal Pulse Rate 90 78 Pulse Strength Respiratory Rate 16 16 Respiratory Effort Normal Short of Breath Respiratory Depth Normal Respiratory Pattern Normal Normal Blood Pressure 120/75 Blood Pressure Mean 90 Blood Pressure Source Monitor Blood Pressure Position Semi-Fowlers Blood Pressure Location Left Arm Pulse Ox 96 Oxygen Delivery Method Room Air Room Air 06/22/24 08:32 06/22/24 08:45 06/22/24 08:46 Temperature 97.2 F L Temperature Source Temporal Pulse Rate 97 Pulse Strength Normal (2+) Respiratory Rate 17 Respiratory Effort Normal Non-Labored Respiratory Depth Normal Respiratory Pattern Normal Blood Pressure 130/92 H Blood Pressure Mean 104 Blood Pressure Source Monitor Blood Pressure Position Semi-Fowlers Blood Pressure Location Left Arm Pulse Ox 98 Oxygen Delivery Method Room Air Room Air Weight Weight: 62.1 kg Body Mass Index (BMI) 24.2 EEG Results Procedure Details EEG Procedure Details: RHONDA MORRISON is a 58 year old F with a past medical history of , who presents for evaluation of Electroencephalogram on DATE at TIME Physical Exam Narrative -? General: Laying comfortably in bed; in no acute distress. -? HENT: Normal oropharynx and mucosa. Normal external appearance of ears and nose. Exophthalmos. -? Neck: Supple, no pain or tenderness -? CV:? No peripheral edema. -? Pulmonary:? Normal respiratory effort. -? Ext: No cyanosis, edema, or deformity -? Skin: No rash. Normal palpation of skin.? -? Musculoskeletal: full range of motion; no joint tenderness. Normal digits and nails by inspection. No clubbing. -? NEURO: -? Mental Status: The patient was alert and oriented to time, place, and person. Normal recent/remote memory, concentration, and general fund of knowledge. -? Language: speech is clear.? Naming, repetition, fluency, and comprehension intact. -? Cranial Nerves: PERRL 3mm/brisk. EOMI, visual peters full, no facial asymmetry, facial sensation intact, hearing intact, tongue midline, no evidence of atrophy or fibrillations. -? Motor: normal bulk, tone, and strength throughout. No pronator drift or satelliting. Upper and lower extremities equal bilaterally. -? Detailed strength exam as performed by the nurse/SHAAN and witnessed by the physician: l R L SA 5 5 EE 5 5 EF 5 5 WE WF Box Coverer Hand 5 5 HF 4 5 KE 5 5- KF 5 5- DF 5 5 PF 5 5 -? Exam as performed by the nurse/SHAAN and witnessed by the physician: l R L Biceps Patellar Ankle Babinski down down -? Tone: is normal and bulk is normal -? Sensation- L 3-4 diminished on the L leg -? Coordination: No dysmetria on [id number], finger follow finger or [id number]. -? Gait- deferred. Lab / Micro Data 06/22/24 06:13 06/22/24 06:13 Labs: Laboratory Results - last 24 hr 06/21/24 12:53: WBC 10.5, RBC 5.43 H, Hgb 16.0 H, Hct 48.1 H, MCV 88.6, MCH 29.5, MCHC 33.3, RDW Std Deviation 49.6 H, RDW Coeff of [place] 15.5 H, Plt Count 275, MPV 9.9, Immature Gran % (Auto) 0.300, Neut % (Auto) 69.7, Lymph % (Auto) 24.9, [place] % (Auto) 4.5, Eos % (Auto) 0.2, Baso % (Auto) 0.4, Absolute Neuts (auto) 7.3, Absolute Lymphs (auto) 2.60, Nucleated RBC % 0, Sodium 139, Potassium 3.6, Chloride 108 H, Carbon Dioxide 22.0, Anion Gap 9, BUN 17, Creatinine 0.61, Estim Creat Clear Calc 85.26, Est GFR (MDRD) Af Amer 129, Est GFR (MDRD) Non-Af 107, BUN/Creatinine Ratio 27.9 H, Glucose 118 H, Calcium 9.0, Magnesium 2.1, Troponin I High Sens < 3 L 06/21/24 16:53: POC Glucose 85 06/21/24 21:17: POC Glucose 141 H 06/22/24 06:13: WBC 10.2, RBC 5.57 H, Hgb 16.3 H, Hct 48.8 H, MCV 87.6, MCH 29.3, MCHC 33.4, RDW Std Deviation 48.6 H, RDW Coeff of [place] 15.2 H, Plt Count 263, MPV 9.3, Immature Gran % (Auto) 0.300, Neut % (Auto) 79.4 H, Lymph % (Auto) 18.6 L, [place] % (Auto) 1.5, Eos % (Auto) 0.0, Baso % (Auto) 0.2, Absolute Neuts (auto) 8.1 H, Absolute Lymphs (auto) 1.90, Nucleated RBC % 0, Sodium 139, Potassium 3.7, Chloride 108 H, Carbon Dioxide 19.0 L, Anion Gap 12, BUN 17, Creatinine 0.61, Estim Creat Clear Calc 82.14, Est GFR (MDRD) Af Amer 129, Est GFR (MDRD) Non-Af 106, BUN/Creatinine Ratio 27.9 H, Glucose 148 H, Calcium 9.2, Total Bilirubin 0.60, AST 13 L, ALT 17, Alkaline Phosphatase 124 H, Total Protein 7.6, Albumin 3.8, Globulin 3.8, Albumin/Globulin Ratio 1.0, TSH 0.75 06/22/24 06:51: POC Glucose 155 H Imaging Radiology Impression Chest X-Ray 06/21/24 12:36 IMPRESSION: Hyperinflation. The lungs are clear. Electronically Signed: Clayton Grimm MD at 13:20 EDT , Brain CT 06/21/24 13:15 IMPRESSION: Chronic involutional changes of the brain. Electronically Signed: Clayton Grimm MD at 13:33 EDT , Active Medications Active Medications Active Medications: Current Medications Generic Name Dose Route Start Last Admin Trade Name Freq PRN Reason Stop Dose Admin Acetaminophen 650 mg 06/21/24 15:29 06/22/24 07:08 Acetaminophen 325 Mg Tablet PO 650 mg Q4H PRN PRN Administration Fever, pain 1-10 Al Hydrox/Mg Hydrox/Simethicone 30 ml 06/21/24 15:29 Mag /Aluminum/Simeth Wch Udc 30 Ml Oral.Susp PO Q6H PRN PRN Gastric Burning Albuterol Sulfate 2.5 mg 06/21/24 15:29 06/22/24 06:50 Albuterol 2.5 Mg/3 Ml Vial.Neb. INHALATION 2.5 mg Q2H PRN PRN Administration Dyspnea, wheezing Alprazolam 2 mg 06/21/24 15:29 Alprazolam 0.5 Mg Tablet PO BID PRN Anxiety Aripiprazole 2 mg 06/22/24 10:00 06/22/24 08:37 Aripiprazole 2 Mg Tablet PO 2 mg DAILY ELISEO Administration Protocol Atorvastatin Calcium 20 mg 06/21/24 22:00 06/21/24 21:21 Atorvastatin Calcium 20 Mg Tablet PO 20 mg QHS ELISEO Administration Baclofen 10 mg 06/21/24 22:00 06/22/24 05:30 Baclofen 10 Mg Tablet PO 10 mg TID ELISEO Administration Budesonide 0.5 mg 06/21/24 15:29 06/22/24 05:48 Budesonide Respules 0.5 Mg/2 Ml Ampul.Neb. INHALATION 0.5 mg BID.RT ELISEO Administration Dexamethasone Sodium Phosphate 4 mg 06/21/24 16:00 06/22/24 05:30 Dexamethasone 4 Mg/Ml Vial IV 4 mg Q6 ELISEO Administration Enoxaparin Sodium 40 mg 06/22/24 10:00 06/22/24 08:38 Enoxaparin 40 Mg/0.4 Ml Syringe SC 40 mg DAILY ELISEO Administration Fluticasone Propionate 2 spray 06/22/24 10:00 06/22/24 08:37 Fluticasone 0.05% 1 [place] Nasal.Sry NASAL 2 spray DAILY ELISEO Administration Gabapentin 100 mg 06/21/24 17:00 06/22/24 08:37 Gabapentin 100 Mg Capsule PO 100 mg TIDCM ELISEO Administration Glucagon 1 mg 06/21/24 15:29 Glucagon 1 Mg/Ml Syringe IM X1 PRN HYPOGLYCEMIA Protocol Sodium Chloride 1,000 mls @ 100 mls/hr 06/21/24 15:29 06/22/24 05:21 IV 06/22/24 11:28 100 mls/hr .Q10H ELISEO Administration Valproic Acid 500 mg/ Dextrose 55 mls @ 50 mls/hr 06/21/24 16:30 06/22/24 06:35 IV Infused Q6 ELISEO Infusion Dextrose 250 mls @ 0 mls/hr 06/21/24 15:29 Dextrose 10%-Water IV .Q0M PRN HYPOGLYCEMIA Protocol As Directed Sodium Chloride 250 mls @ 15 mls/hr 06/21/24 15:38 IV .[id number] PRN Additional IVPB Infusion Sodium Chloride 250 mls @ 15 mls/hr 06/21/24 15:38 IV .[id number] PRN Saline Flush Insulin Human Lispro 0 unit 06/21/24 16:00 06/22/24 07:07 Insulin Lispro 100 Unit/Ml Insuln.Pen SC 1 units ACHS ELISEO Administration Protocol Lamotrigine 200 mg 06/21/24 22:00 Lamotrigine 100 Mg Tablet PO BID ELISEO Lorazepam 2 mg 06/22/24 09:00 06/22/24 08:37 Lorazepam 1 Mg Tablet PO 06/22/24 09:01 2 mg X1 ONE Administration Melatonin 3 mg 06/21/24 15:29 Melatonin 3 Mg Tablet PO QHS PRN PRN INSOMNIA Nicotine 21 mg 06/21/24 16:00 06/22/24 08:38 Nicotine 21 Mg Patch TD 21 mg DAILY ELISEO Administration Ondansetron HCl 4 mg 06/21/24 15:29 Ondansetron 4 Mg/2 Ml Vial IV Q8H PRN PRN NAUSEA/VOMITING Pantoprazole Sodium 20 mg 06/22/24 10:00 06/22/24 08:38 Pantoprazole Sodium 20 Mg Tablet PO 20 mg DAILY ELISEO Administration Prochlorperazine Edisylate 5 mg 06/21/24 15:29 Prochlorperazine 10 Mg/2 Ml Vial IV Q4H PRN PRN Breakthrough Nausea/Vomiting Sodium Chloride 10 - 40 ml 06/21/24 15:38 06/22/24 05:29 0.9% Saline Lock 10 Ml Syringe IV 10 ml UD PRN Administration SALINE FLUSH
[2024-06-22 09:43] VITALS: O2SAT 96
--- NOTE | 2024-06-22 09:52 | NURSING ---
Patient left floor for MRI at 0930.
--- NOTE | 2024-06-22 10:50 | NURSING ---
Patient returned to [facility] following MRI.
--- NOTE | 2024-06-22 11:04 | NURSING ---
1100: [facility] at bedside speaking with patient and her SO.
[2024-06-22 11:43] LABS: Bedside Glucose 173 mg/dL (74-106)
[2024-06-22] MEDS: Magnesium Sulfate 2 GM in Dextrose 5%-Water (100mL Bag) 100 ML IV (12:59)
[2024-06-22 14:14] VITALS: BP 112/68; PULSE 82; RESP 16; TEMP 36.6; O2SAT 94
--- NOTE | 2024-06-22 14:30 | MRI_ITS ---
STUDY: MRA OF THE HEAD WITHOUT CONTRAST REASON FOR EXAM: Female, 58 years old. Migraine headache, new seizure TECHNIQUE: 3-D [id number] (TOF) imaging was performed with MIPs. The study was performed unenhanced. COMPARISON: None. FINDINGS: Normal bilateral petrous carotid arteries. Normal right cavernous carotid artery with a normal supraclinoid bifurcation. Normal left cavernous carotid artery with a normal supraclinoid bifurcation. Normal right A1 segment of the anterior cerebral artery. Normal left A1 segment of the anterior cerebral artery. Normal intact anterior communicating artery (ACOM). Normal bilateral A2 segments of the anterior cerebral arteries. Normal right M1 and M2 segments of the middle cerebral arteries, with a normal M1 bifurcation. Normal left M1 and M2 segments of the middle cerebral arteries, with a normal M1 bifurcation. Normal right posterior communicating artery (PCOM). No visible left posterior communicating artery (PCOM). Normal bilateral codominant vertebral arteries. Normal basilar artery with a normal basilar bifurcation. The visualized bilateral superior cerebellar (SCA) arteries are normal. Normal bilateral P1, P2 and visualized P3 segments of the posterior cerebral arteries. There is no demonstrated aneurysm of the [place]. There is no major vessel occlusion or hemodynamically significant stenosis. MRI/MRA Head ONLY without Contrast IMPRESSION: Normal MRA of the head Electronically Signed: Tin Winter MD at 14:12 EDT ,
--- NOTE | 2024-06-22 14:30 | MRI_ITS ---
EXAM: MR HEAD WITHOUT AND WITH INTRAVENOUS CONTRAST CLINICAL INDICATION: Migraines. No seizure. TECHNIQUE: Multiplanar and multisequence MR images of the brain were obtained without and with intravenous contrast. CONTRAST: 12 mL of IV Clariscan. COMPARISON: CT head without contrast 06/21/2024. FINDINGS: BRAIN AND EXTRA-AXIAL SPACES: Unremarkable. No intra- or extra-axial hemorrhage. No intracranial mass or mass effect. Posterior fossa structures are unremarkable. No diffusion restriction to suspect acute or subacute ischemic infarct. No focal signal abnormalities throughout the brain parenchyma in all pulse sequences. Normal ventricles and cisterns. No communicating or noncommunicating hydrocephalus. The limbic lobes are normal and symmetrical. Following IV contrast administration, there are no abnormal enhancing lesions intra-axially and extra-axially. SELLA: Unremarkable. Normal sella turcica, pituitary gland, infundibular stalk, optic chiasm and hypothalamus. AUDITORY SYSTEM: Unremarkable. The internal auditory canals are patent. BONES/JOINTS: Unremarkable. No discrete lytic or blastic abnormalities. SINUSES: Unremarkable as visualized. Clear. MASTOID AIR CELLS: Unremarkable as visualized. Clear. ORBITS: Unremarkable as visualized. Both globes, extraocular muscles, optic nerves and retrobulbar fat appear unremarkable. VASCULATURE: Unremarkable as visualized. Normal flow voids in the major intracranial circulation. MRI/Brain W/WO Contrast IMPRESSION: Normal MRI brain with and without contrast including the thin sections through the limbic lobes. Electronically Signed: Tin Winter MD at 12:25 EDT ,
--- NOTE | 2024-06-22 14:31 | CASEMGMT ---
Social Work SW reviewed POA/LW documents w/pt and provided blank copies to her, along with the number to call the SW dept to set up an appt after discharge, should she want assist w/completing the forms. Pt states she has three people in mind to put on the forms, but wants to speak w/them before completing the documents. ALEXEI Son
--- NOTE | 2024-06-22 14:37 | DCINST_ITS ---
Discharge Instructions Diet Discharge Diet: No restrictions Activity Discharge Activity: Return to Normal Activity and May Not Drive (For 3 months) Weight Bearing Status: Full weight bearing Follow Up Care Test Results: Test results from this visit will be discussed in further detail at your follow- up appointment, if applicable. Discharge Plan Admission Admit Date/Time: 06/21/24 14:18 Primary Reason for Your Visit: Seizure disorder Attending Provider: Andrea Mann Primary Care Provider: Coral Monae NP Consulting Providers: Sal Mcghee; Angela Correia; Chuy Mason; So Adams; Chelsea Jaramillo; Jose Manuel Thomson; Leena Tineo; Aparna Sewell; Wero Thorpe; Patricia Estrella; Partha Eldridge; Onel Graves; Junito Freeman; Gisselle Lopez; Juan Antonio Marcus; Isaiah Olivarez; Foster Galicia; Stanley Damon; Sara Hale; Perfecto Malik; Felicia Verduzco; Tom Pitt; Subha Hull; KELI CERNA; Cruz Estrada; Kallie Solis; Radha Quiroz Discharge Orders/Prescriptions Prescriptions: Continued lamotrigine 200 mg tablet 200 mg PO BID Patient Comments: take 1 tablet by mouth twice a day alprazolam 2 MG tablet 2 mg PO BID PRN (Reason: Anxiety) aripiprazole 2 mg tablet 2 mg PO DAILY Patient Comments: take 1 tablet by mouth once daily omeprazole 40 mg capsule,delayed release(DR/EC) 20 mg PO DAILY rosuvastatin 10 mg tablet 10 mg PO QHS acetaminophen 500 mg Tablet 500 mg PO PRN baclofen 10 mg tablet 10 mg PO TID (DME) Altera Nebulizer System Mis See Rx Instructions .ROUTE .MEDSUPPLY Qty: 1 3RF Rx Instructions: nebulizer and supplies fluticasone propionate 50 mcg/actuation spray,suspension See Rx Instructions .Route PRN PRN (Reason: Nasal Congestion) Qty: 15.8 3RF Rx Instructions: USE 2 SPRAYS IN EACH NOSTRIL ONCE DAILY (DME) blood-glucose meter [OneTouch Verio Flex meter] Misc See Rx Instructions .ROUTE .MEDSUPPLY Qty: 1 0RF Rx Instructions: As directed - Check blood sugar daily (DME) Blood Glucose Test Strip See Rx Instructions .ROUTE .MEDSUPPLY Qty: 50 3RF Rx Instructions: use to monitor blood sugar daily for type 2 DM (DME) blood-glucose meter Misc See Rx Instructions .ROUTE .MEDSUPPLY Qty: 1 0RF Rx Instructions: use to monitor blood sugar daily for type 2 DM (DME) lancets 32 gauge misc See Rx Instructions .ROUTE .MEDSUPPLY Qty: 100 3RF Rx Instructions: use to check blood sugar for type 2 DM ipratropium-albuterol 0.5 mg-3 mg(2.5 mg base)/3 mL solution for nebulization 3 ml INHALATION Q8H PRN (Reason: shortness of breath or wheezing) Qty: 90 3RF (DME) OneTouch Verio test strips Strip See Rx Instructions .ROUTE .MEDSUPPLY Qty: 100 3RF Rx Instructions: Check blood sugar daily ondansetron 4 mg tablet,disintegrating 4 mg PO Q8H PRN (Reason: nausea and vomiting) Qty: 30 3RF budesonide-formoterol [Symbicort] 160-4.5 mcg/actuation HFA aerosol inhaler 2 puff INHALATION BID Qty: 10.2 3RF albuterol sulfate [Ventolin HFA] 90 mcg/actuation HFA aerosol inhaler 2 puff INHALATION Q6H PRN (Reason: shortness of breath or wheezing) Qty: 8 3RF Jardiance 25 mg tablet 25 mg PO QAM Qty: 30 0RF Referrals / Follow Up: Coral Monae TECHNICIAN INVENTORY SPECIALIST, TECHNICIAN INVENTORY SPECIALIST-C [Primary Care Provider] - See Referral Note (Within 2 weeks, you will need a referral to see a neurologist within the next 3 months, have your family practitioner arrange for this) Disposition Disposition (needs filled in before D/C Order can be placed): Home, Self Care
--- NOTE | 2024-06-22 14:46 | PCM.DC.SUM ---
Providers Date of Admission: 06/21/24 Date of Discharge: 06/22/24 Primary Care Physician: ANDREA Fortune Consultations 06/21/24 15:29 Neurology [Consult: Tele-Neurology] Routine Consulting Provider: [facility] Reason for Consult: Intractable migraine, new possible onset seizure EMERGENT Consult: No MD Notified: Yes Date Notified: 06/21/24 Time Notified: 15:36 Method of Notification: Answering Service Nursing Unit Staff Notify [facility] of Tele-Neurology Consult: Yes Reason For Visit: MIGRAINE, ? SEIZURE Diagnosis Discharge Diagnosis (1) Intractable migraine: Status: Acute Code(s): G43.919 - Migraine, unspecified, intractable, without status migrainosus (2) New onset seizure: Status: Acute Code(s): R56.9 - Unspecified convulsions Plan 1. Seizure disorder #2 Acute migraine cephalgia #3 chronic anxiety and depression #4 chronic asthma #5 type 2 diabetes Medications at Discharge Home Medications alprazolam 2 mg tablet 2 mg PO BID PRN Anxiety 03/24/19 nebulizers (Altera Nebulizer System) #1 ea 09/06/20 fluticasone propionate 50 mcg/actuation nasal spray,suspension See Rx Instructions .Route PRN PRN Nasal Congestion #15.8 mL 11/16/21 blood-glucose meter (OneTouch Verio Flex Meter) #1 ea 11/27/21 blood sugar diagnostic (Blood Glucose Test strips) #50 ea 11/28/21 blood-glucose meter #1 ea 11/28/21 lancets 32 gauge #100 ea 11/28/21 lamotrigine 200 mg tablet 200 mg PO BID BIPOLAR 03/12/22 ipratropium 0.5 mg-albuterol 3 mg (2.5 mg base)/3 mL nebulization soln 3 ml inhalation Q8H PRN shortness of breath or wheezing #90 mL 07/22/22 blood sugar diagnostic (OneTouch Verio test strips) #100 ea 08/28/22 ondansetron 4 mg disintegrating tablet 4 mg PO Q8H PRN nausea and vomiting #30 tabs 09/27/22 budesonide-formoterol HFA 160 mcg-4.5 mcg/actuation aerosol inhaler (Symbicort) 2 puff inhalation BID ASTHMA #10.2 grams 11/04/22 Ventolin HFA 90 mcg/actuation aerosol inhaler (albuterol sulfate) 2 puff inhalation Q6H PRN shortness of breath or wheezing #8 grams 12/09/22 empagliflozin 25 mg tablet (Jardiance) 25 mg PO QAM DM #30 tabs 08/25/23 aripiprazole 2 mg tablet 2 mg PO DAILY BIPOLAR 12/22/23 omeprazole 40 mg capsule,delayed release 20 mg PO DAILY GERD 12/22/23 rosuvastatin 10 mg tablet 10 mg PO QHS HLD 12/22/23 acetaminophen 500 mg tablet 500 mg PO PRN 06/21/24 baclofen 10 mg tablet 10 mg PO TID 06/21/24 Hospital Course Operations None Procedures Electroencephalogram Summary of Care Provided Minutes Spent on Discharge: 31 Hospital Course: This 58-year-old white female was seen in the emergency room at [facility] with complaint of headache. She further stated that she had a witnessed seizure 3 days ago and was brought to the emergency room for this, imaging studies were done and they were negative but a men's custom hair piece consultant from teleneurology recommended she be admitted for an MRI, patient did not want to stay and went home. Since that time, patient stated that she has had a severe headache, she does not remember having a seizure 3 days ago. Patient's chronic medical problems include chronic anxiety and depression,, bipolar disorder and type 2 diabetes. Labs obtained in the emergency room showed a normal white blood cell count, hemoglobin was 16, and chemistry profile was unremarkable. CT of the brain showed chronic involutional changes, patient was placed in observation status on PCU and placed on IV Decadron and valproic acid, she was seen in consultation by teleneurology and had an MRI of the brain and an MRA of the head and neck. Imaging studies were unremarkable, patient also had an EEG-at the time of this dictation, EEG results were not available. Teleneurology recommended the patient not drive for 3 months, did not recommend any seizure medications and recommended follow-up with neurology. On 06/22/2024, patient was seen and examined: On examination she appeared in good health and spirits, she does not appear to be in any distress. Vital signs as documented. Skin warm and dry and without overt rashes. Neck without JVD, thyroid appears normal, trachea is midline, neck is supple. Lungs clear, normal air movement was noted. Heart exam notable for regular rhythm, normal sounds and absence of murmurs, rubs or gallops. Abdomen unremarkable and without evidence of organomegaly, masses, or abdominal aortic enlargement, bowel sounds are present in all 4 quadrants, no abdominal tenderness was noted. Extremities nonedematous, no cyanosis was noted, no clubbing was noted. Neuro: Cranial nerves II through XII are grossly intact, no focal motor deficits were noted, sensation to light touch and pinprick is intact, motor exam 5/5 throughout. Psych: Patient is alert and oriented x3, she does not appear anxious or depressed, she does not appear agitated. On 06/22/2024, patient was seen and examined and felt to be in stable condition for discharge home Weight / BMI Weight Weight: 62.1 kg Body Mass Index (BMI) 24.2 ABG / Lab / Microbiology Data 06/22/24 06:13 06/22/24 06:13 Laboratory: Laboratory Results - last 24 hr 06/21/24 16:53: POC Glucose 85 06/21/24 21:17: POC Glucose 141 H 06/22/24 06:13: WBC 10.2, RBC 5.57 H, Hgb 16.3 H, Hct 48.8 H, MCV 87.6, MCH 29.3, MCHC 33.4, RDW Std Deviation 48.6 H, RDW Coeff of Salvador 15.2 H, Plt Count 263, MPV 9.3, Immature Gran % (Auto) 0.300, Neut % (Auto) 79.4 H, Lymph % (Auto) 18.6 L, O'Brien % (Auto) 1.5, Eos % (Auto) 0.0, Baso % (Auto) 0.2, Absolute Neuts (auto) 8.1 H, Absolute Lymphs (auto) 1.90, Nucleated RBC % 0, Sodium 139, Potassium 3.7, Chloride 108 H, Carbon Dioxide 19.0 L, Anion Gap 12, BUN 17, Creatinine 0.61, Estim Creat Clear Calc 82.14, Est GFR (MDRD) Af Amer 129, Est GFR (MDRD) Non-Af 106, BUN/Creatinine Ratio 27.9 H, Glucose 148 H, Calcium 9.2, Total Bilirubin 0.60, AST 13 L, ALT 17, Alkaline Phosphatase 124 H, Total Protein 7.6, Albumin 3.8, Globulin 3.8, Albumin/Globulin Ratio 1.0, TSH 0.75 06/22/24 06:51: POC Glucose 155 H 06/22/24 11:23: POC Glucose 173 H Radiography Diagnostic Testing: Radiology Impression Brain MRI 06/22/24 14:30 IMPRESSION: Normal MRI brain with and without contrast including the thin sections through the limbic lobes. Electronically Signed: Tin Winter MD at 12:25 EDT , Head MRA 06/22/24 14:30 IMPRESSION: Normal MRA of the head Electronically Signed: Tin Winter MD at 14:12 EDT , D/C Instructions Discharge Diet: No restrictions Weight Bearing Status: Full weight bearing Meaningful Use Info Meaningful Use Meaningful Use Diagnoses (Choose all that apply): None applicable Ischemic Stroke Statin Dosing Therapy Reference: STATIN DOSE THERAPY REFERENCE: * Patients > 75 years receive moderate or high dose statin therapy. * Patients 75 years or YOUNGER should receive HIGH intensity statin dose unless contraindicated. You will be required to document reason for non-treatment if statin daily dose does not meet guidelines. HIGH DOSE STATIN THERAPY DAILY Atorvastatin > than or = to 40 mg Rosuvastatin > than or = to 20 mg Amlodipine + Atorvastatin > than or = to 2.5/40 mg Ezetimibe + Simvastatin 10/80 mg Simvastatin 80mg Discharge Plan Admission Admit Date/Time: 06/21/24 14:18 Primary Reason for Your Visit: Seizure disorder Attending Provider: Andrea Mann Primary Care Provider: Coral Monae NP Consulting Providers: Sal Mcghee; Angela Correia; Chuy Mason; So Adams; Chelsea Jaramillo; Jose Manuel Thomson; Leena Tineo; Aparna Sewell; Wero Thorpe; Patricia Estrella; Partha Eldridge; Onel Graves; Junito Freeman; Gisselle Lopez; Amritryan Vini; Isaiah Olivarez; Foster Galicia; Stanley Damon; Sara Hale; Perfecto Malik; Felicia Verduzco; Tom Pitt; Subha Hull; KELI CERNA; Cruz Estrada; Kallie Solis; Radha Quiorz Instructions Additional Instructions / Restrictions: Do not drive for the next 3 months Discharge Orders/Prescriptions Prescriptions: Continued lamotrigine 200 mg tablet 200 mg PO BID Patient Comments: take 1 tablet by mouth twice a day alprazolam 2 MG tablet 2 mg PO BID PRN (Reason: Anxiety) aripiprazole 2 mg tablet 2 mg PO DAILY Patient Comments: take 1 tablet by mouth once daily omeprazole 40 mg capsule,delayed release(DR/EC) 20 mg PO DAILY rosuvastatin 10 mg tablet 10 mg PO QHS acetaminophen 500 mg Tablet 500 mg PO PRN baclofen 10 mg tablet 10 mg PO TID (DME) Altera Nebul[place] [facility] [place] Rx Instructions .ROUTE .MEDSUPPLY Qty: 1 3RF Rx Instructions: nebulizer and supplies fluticasone propionate 50 mcg/actuation spray,suspension See Rx Instructions .Route PRN PRN (Reason: Nasal Congestion) Qty: 15.8 3RF Rx Instructions: USE 2 SPRAYS IN EACH NOSTRIL ONCE DAILY (DME) blood-glucose meter [OneTouch Verio Flex meter[place] [facility] [place] Instructions .ROUTE .MEDSUPPLY Qty: 1 0RF Rx Instructions: As directed - Check blood sugar daily (DME) Blood Glucose Test Strip See Rx Instructions .ROUTE .MEDSUPPLY Qty: 50 3RF Rx Instructions: use to monitor blood sugar daily for type 2 DM (DME) blood-glucose meter [facility] [place] Rx Instructions .ROUTE .MEDSUPPLY Qty: 1 0RF Rx Instructions: use to monitor blood sugar daily for type 2 DM (DME) lancets 32 gauge mis See Rx Instructions .ROUTE .MEDSUPPLY Qty: 100 3RF Rx Instructions: use to check blood sugar for type 2 DM ipratropium-albuterol 0.5 mg-3 mg(2.5 mg base)/3 mL solution for nebulization 3 ml INHALATION Q8H PRN (Reason: shortness of breath or wheezing) Qty: 90 3RF (DME) OneTouch Verio test strips Strip See Rx Instructions .ROUTE .MEDSUPPLY Qty: 100 3RF Rx Instructions: Check blood sugar daily ondansetron 4 mg tablet,disintegrating 4 mg PO Q8H PRN (Reason: nausea and vomiting) Qty: 30 3RF budesonide-formoterol [Symbicort] 160-4.5 mcg/actuation HFA aerosol inhaler 2 puff INHALATION BID Qty: 10.2 3RF albuterol sulfate [Ventolin HFA] 90 mcg/actuation HFA aerosol inhaler 2 puff INHALATION Q6H PRN (Reason: shortness of breath or wheezing) Qty: 8 3RF Jardiance 25 mg tablet 25 mg PO QAM Qty: 30 0RF Referrals / Follow Up: Coral Monae FACILITY TECHNICIAN, FACILITY TECHNICIAN-C [Primary Care Provider] - See Referral Note (Within 2 weeks, you will need a referral to see a neurologist within the next 3 months, have your family practitioner arrange for this) Disposition Disposition (needs filled in before D/C Order can be placed): Home, Self Care Charges/Coding Visit Charges Inpatient E&M: 95232 Disch Hosp >30min
--- NOTE | 2024-06-22 14:53 | CASEMGMT ---
Order for DC placed. RN CM to pt room at this time. Pt denies needs moving forward. Pt states that she lives at home with her SO who will be picking her up from the hospital today. Pt states that she is independent. 6-Click score is 23. Pt denies the need for HHC or OP Therapy. Pt denies further questions or concerns and is ready for DC home today with her SO.
--- NOTE | 2024-06-22 14:54 | PHA.DC.MR.R ---
Pharmacy [place] Med Reconciliation Pharmacy Service has performed discharge medication reconciliation for this patient. The patient's discharge medication list was reviewed for discrepancies and discrepancies were resolved. Medications at Discharge Home Medications alprazolam 2 mg tablet 2 mg PO BID PRN Anxiety 03/24/19 nebulizers (Altera Nebulizer System) #1 ea 09/06/20 fluticasone propionate 50 mcg/actuation nasal spray,suspension See Rx Instructions .Route PRN PRN Nasal Congestion #15.8 mL 11/16/21 blood-glucose meter (OneTouch Verio Flex Meter) #1 ea 11/27/21 blood sugar diagnostic (Blood Glucose Test strips) #50 ea 11/28/21 blood-glucose meter #1 ea 11/28/21 lancets 32 gauge #100 ea 11/28/21 lamotrigine 200 mg tablet 200 mg PO BID BIPOLAR 03/12/22 ipratropium 0.5 mg-albuterol 3 mg (2.5 mg base)/3 mL nebulization soln 3 ml inhalation Q8H PRN shortness of breath or wheezing #90 mL 07/22/22 blood sugar diagnostic (OneTouch Verio test strips) #100 ea 08/28/22 ondansetron 4 mg disintegrating tablet 4 mg PO Q8H PRN nausea and vomiting #30 tabs 09/27/22 budesonide-formoterol HFA 160 mcg-4.5 mcg/actuation aerosol inhaler (Symbicort) 2 puff inhalation BID ASTHMA #10.2 grams 11/04/22 Ventolin HFA 90 mcg/actuation aerosol inhaler (albuterol sulfate) 2 puff inhalation Q6H PRN shortness of breath or wheezing #8 grams 12/09/22 empagliflozin 25 mg tablet (Jardiance) 25 mg PO QAM DM #30 tabs 08/25/23 aripiprazole 2 mg tablet 2 mg PO DAILY BIPOLAR 12/22/23 omeprazole 40 mg capsule,delayed release 20 mg PO DAILY GERD 12/22/23 rosuvastatin 10 mg tablet 10 mg PO QHS HLD 12/22/23 acetaminophen 500 mg tablet 500 mg PO PRN 06/21/24 baclofen 10 mg tablet 10 mg PO TID 06/21/24
== END 2024-06-22 14:43 | disposition home or self-care (01) ==
LOC: ED 12:26 → PCU 14:44
PROVIDERS: Admitting Provider Family Medicine; Emergency Provider Student in an Organized Health Care Education/Training Program; PCP Internal Medicine; Visit Provider Internal Medicine
DX: R56.9 Unspecified convulsions (principal); F31.9 Bipolar disorder, unspecified; E11.40 Type 2 diabetes mellitus with diabetic neuropathy, unspecified; R07.9 Chest pain, unspecified; Z79.84 Long term (current) use of oral hypoglycemic drugs; G89.4 Chronic pain syndrome; G43.709 Chronic migraine without aura, not intractable, without status migrainosus; F41.9 Anxiety disorder, unspecified; F17.210 Nicotine dependence, cigarettes, uncomplicated; E78.00 Pure hypercholesterolemia, unspecified; Z79.51 Long term (current) use of inhaled steroids; I10 Essential (primary) hypertension; J45.909 Unspecified asthma, uncomplicated; Z79.899 Other long term (current) drug therapy; K21.9 Gastro-esophageal reflux disease without esophagitis; G25.81 Restless legs syndrome
CPT/HCPCS: 36415; 70450; 70544; 70553; 71045; 80048; 80053; 82962; 83735; 84443; 84484; 85025; 93005; 94640; 94668; 95819; 96361; 96365; 96366; 96372; 96375; 96376; 99221; 99285; A9575; J7030; A4216; G0378

== ENCOUNTER 2024-11-11 10:09 | Inpatient (IN) | payer MEDICAID, SELFPAY ==
[2024-11-11] VITALS (8 sets, daily range): BP systolic 103–128; BP diastolic 72–93; PULSE 71–127; RESP 16–20; TEMP 36.4–36.7; O2SAT 91–100; BMI 23.7
--- NOTE | 2024-11-11 10:53 | CT_ITS ---
HISTORY: Abdominal pain, diarrhea. TECHNIQUE: Helically acquired images were obtained of the abdomen and pelvis after the intravenous administration of 100 mL Isovue-370. A radiation dose optimization technique was used for this scan. 389 images. COMPARISON: None. FINDINGS: LOWER CHEST: Lung bases clear. BOWEL: Prominent gastric wall with underdistention. Bowel including appendix nondilated. Diffuse colonic wall thickening from the cecum to the rectum. PERITONEUM: No significant ascites. LIVER: No enhancing mass. GALLBLADDER/BILIARY TREE: Cholecystectomy. SPLEEN/PANCREAS: Homogeneous and nonenlarged. ADRENAL GLANDS/KIDNEYS: Unremarkable. VESSELS: No abdominal aortic aneurysm. Moderate atherosclerosis. PELVIC ORGANS: Absent uterus. BONES: Posterolateral spinal fusion hardware of L3-5 with interbody fusion material CT/Abdomen/Pelvis W IV Cont ONLY IMPRESSION: Acute pancolitis, likely infectious or inflammatory Prominent gastric wall which may be secondary to underdistention or sequela of gastritis. Electronically Signed: Debbie Seo MD at 12:24 EST ,
[2024-11-11] MEDS: 0.9% Normal Saline (1000mL) 1,000 ML 999 ML IV (11:09)
[2024-11-11] MEDS: Morphine 4 MG/ML Syringe IV (11:09)
[2024-11-11] MEDS: Ondansetron 4 MG/2 ML Vial IV ×3 (11:09→16:36)
--- NOTE | 2024-11-11 11:13 | EDS_ITS ---
HPI History of Present Illness Chief Complaint: Abd Pain Narrative Narrative: Chief complaint and HPI: Nausea, vomiting, diarrhea. 59-year-old female presents for evaluation of nausea, vomiting, diarrhea. Onset of symptoms this weekend. Associated symptoms are symptomatic fevers as well as diffuse abdominal pain. Patient endorses decreased p.o. intake over the past several days secondary to her symptoms. She called her PCP office yesterday who recommended her to be seen in the emergency department. She did not come until today. She states she has had multiple episodes of watery diarrhea. Denies any recent antibiotic use. Patient states that for the past 2 days she has noticed bright red blood on the toilet paper when she wipes. No blood in the toilet bowl or in the stool. She denies any chest pain, shortness of breath, dysuria. History of abdominal surgeries. Review of systems: See HPI Medications: As listed on the chart Allergies: As listed on the chart PFSH: Per chart Vital signs: As listed on the chart. Reviewed. Physical exam: Gen: A&O x3, NAD Head: Normocephalic, atraumatic Eyes: No sclera icterus, conjunctiva clear ENT: Dry mucous membranes Neck: Trachea midline, No JVD CV: RRR, no murmurs, no peripheral edema Resp: Lungs CTA BL, no w/r/c GI: Abd soft, non-distended, mild tenderness to palpation diffusely, no r/r/g Rectal: + External non-thrombosed hemorrhoid. Normal tone and sensation. No masses, fluctuance, or tenderness. No pain out of proportion. No blood visualized. Musc: Full ROM, no deformity Skin: Warm, dry Neuro: Alert, oriented, grossly intact, sensation intact Psych: Cooperative, appropriate mood and affect [facility] Medical History Intractable migraine Spondylolisthesis, lumbar region Wears glasses Anxiety Bipolar disorder Marijuana use Diabetes Arthritis High cholesterol Excessive bleeding Restless legs Back pain Urinary incontinence Flu vaccine need Easy bruising Back pain Essential hypertension Chronic back pain Grief Encounter for screening for malignant neoplasm of lung in current smoker with 30 pack year history or greater Cough Acute exacerbation of chronic low back pain GERD (gastroesophageal reflux disease) Abnormal EKG Panic attack Anxiety and depression Head injury Fall Concussion Muscle spasm Chronic radicular lumbar pain Type 2 diabetes mellitus Post concussion syndrome Vision problems Neuropathy IBS (irritable bowel syndrome) Hyperlipidemia Chronic headaches Hx of emotional problems Carpal tunnel syndrome Asthma Seasonal allergies Home Medications ?Medication ?Instructions ?Recorded ?Last Taken ?Type alprazolam 2 mg tablet 2 mg PO BID PRN Anxiety 03/24/19 01/04/24 History nebulizers (Altera Nebulizer #1 ea 09/06/20 Unknown Rx System) blood-glucose meter (OneTouch #1 ea 11/27/21 Unknown Rx Verio Flex Meter) blood sugar diagnostic (Blood #50 ea 11/28/21 Unknown Rx Glucose Test strips) blood-glucose meter #1 ea 11/28/21 Unknown Rx lancets 32 gauge #100 ea 11/28/21 Unknown Rx ipratropium 0.5 mg-albuterol 3 mg 3 ml inhalation Q8H PRN shortness 07/22/22 01/05/24 Rx (2.5 mg base)/3 mL nebulization of breath or wheezing #90 mL soln blood sugar diagnostic (OneTouch #100 ea 08/28/22 Unknown Rx Verio test strips) budesonide-formoterol HFA 160 2 puff inhalation BID ASTHMA #10.2 11/04/22 11/11/24 Rx mcg-4.5 mcg/actuation aerosol grams inhaler (Symbicort) Ventolin HFA 90 mcg/actuation 2 puff inhalation Q6H PRN 12/09/22 01/04/24 Rx aerosol inhaler (albuterol sulfate) shortness of breath or wheezing #8 grams empagliflozin 25 mg tablet 25 mg PO QAM DM #30 tabs 08/25/23 11/11/24 Rx (Jardiance) rosuvastatin 10 mg tablet 10 mg PO QHS HLD 12/22/23 11/10/24 History acetaminophen 500 mg tablet 500 mg PO PRN 06/21/24 Unknown History baclofen 10 mg tablet 10 mg PO TID PRN back pain 06/21/24 Unknown History aripiprazole 5 mg tablet 5 mg PO DAILY 11/11/24 11/11/24 History fluticasone propionate 50 2 spray intranasal PRN PRN Nasal 11/11/24 11/11/24 History mcg/actuation nasal Congestion spray,suspension hydroxyzine HCl 50 mg tablet 25 - 100 mg PO DAILY PRN anxiety 11/11/24 Unknown History omeprazole 20 mg capsule,delayed 20 mg PO BID 11/11/24 11/11/24 History release paroxetine HCl 30 mg tablet 30 mg PO DAILY 11/11/24 11/11/24 History Allergy/AdvReac Type Severity Reaction Status Date / Time red dye Allergy Severe swelling Verified 11/11/24 10:10 carbidopa Allergy Unknown Verified 11/11/24 10:10 gabapentin Allergy Unknown Verified 11/11/24 10:10 latex Allergy Rash Verified 11/11/24 10:10 quetiapine fumarate (From Allergy Other Verified 11/11/24 10:10 Seroquel) topiramate (From Topamax) Allergy Hives Verified 11/11/24 10:10 tramadol HCl (From Ultram) Allergy Other Verified 11/11/24 10:10 amitriptyline AdvReac Vomiting Verified 11/11/24 10:10 aspirin AdvReac Upset Verified 11/11/24 10:10 Stomach cyclobenzaprine HCl (From AdvReac Upset Verified 11/11/24 10:10 Flexeril) Stomach etodolac (Etodolac) AdvReac Vomiting Verified 11/11/24 10:10 hydrocodone bitartrate (From AdvReac Vomiting Verified 11/11/24 10:10 Vicodin) metformin AdvReac Diarrhea Verified 11/11/24 10:10 metoclopramide (From Reglan) AdvReac Other Verified 11/11/24 10:10 naproxen (From Naprosyn) AdvReac Upset Verified 11/11/24 10:10 Stomach propoxyphene napsylate (From AdvReac Vomiting Verified 11/11/24 10:10 Darvocet-N 100) Family History Mother Malignant hyperthermia due to anesthesia Angina pectoris Arthritis Bowel disease Myocardial infarction Heart disease Hypertension High cholesterol CVA (cerebral vascular accident) Father Asthma Arthritis Myocardial infarction Heart disease High cholesterol Hypertension CVA (cerebral vascular accident) Leukemia Diabetes Grandmother Lung cancer Grandfather Diabetes Grandmother Diabetes Surgical History Status post lumbar spinal fusion History of back surgery History of rectal surgery History of colonoscopy History of foot surgery History of nasal polypectomy S/P knee surgery History of total hysterectomy History of cholecystectomy History of partial hysterectomy History of Social History household members: none Smoking Status: Current every day smoker tobacco type: cigarettes Tobacco: How many years used: 46 Electronic Cigarette Use: not used how long ago did patient quit smokin+ pack year smoking history (1.5-2 ppd x 32 years, 3 ppd x 14 years). second hand exposure: Yes quit status: considering quitting alcohol intake: never substance use type: does not use what type of physical activity do you participate in: walking and bicycling EXAM Physical Exam Const Vital Signs: 11/11/24 10:10 11/11/24 12:00 11/11/24 13:17 Temperature 97.6 F L 98 F Temperature Source Temporal Pulse Rate 127 H 72 103 H Respiratory Rate 18 16 16 Blood Pressure 120/93 H 128/84 H 108/81 H Blood Pressure Mean 102 98 90 Pulse Ox 97 99 97 Oxygen Delivery Method Room Air Room Air 11/11/24 13:18 Temperature 98 F Temperature Source Temporal Pulse Rate 103 H Respiratory Rate 16 Blood Pressure 108/81 H Blood Pressure Mean 90 Pulse Ox 97 Oxygen Delivery Method Room Air MDM MDM MDM Narrative Medical decision making narrative: 59-year-old female presents for evaluation of nausea, vomiting, diarrhea. Differential diagnosis includes but is not limited to viral illness, colitis, diverticulitis, gastroenteritis, UTI, electrolyte abnormality, DONNY. NS bolus, morphine, Zofran ordered for symptoms. Abdominal pain workup ordered including CT abdomen pelvis. CBC with mild leukocytosis of 11.7. Patient has hemoconcentration at 17.4 likely secondary to dehydration. CMP shows mild hypokalemia and mild dehydration. No DONNY. No transaminitis. Lipase unremarkable. UA negative for UTI but positive for ketones. This is consistent with patient's dehydration. Patient still endorsing abdominal pain and nausea. Dilaudid and Zofran ordered. CT abdomen pelvis shows acute pancolitis, likely infectious or inflammatory. Prominent gastric wall which may be secondary to underdistention or sequelae of gastritis. Fecal occult positive. Zosyn ordered for antibiotics his concern is for infectious etiology. Stool cultures ordered. Patient will warrant admission. Patient was discussed with Dr. Bejarano with hospitalist. He would like me to talk to surgery prior to admission as there is a concern for possible pneumatosis by the hospitalist. General surgery Dr. Hernandez looked at the CT abdomen pelvis himself, no pneumatosis on his exam. He would like me to confirm with radiology. Radiology was contacted. I spoke with Dr. Seo who read the CT abdomen pelvis. She agrees that there is no pneumatosis on CT abdomen pelvis. She will addendum this in her report. Dr. Bejarano accepted admission. Patient updated of all results and plan. She confirmed understanding. Impression: 1. Pancolitis 2. Dehydration 3. Mild hypotension 4. Nausea, vomiting, diarrhea Lab Data Labs: Laboratory Results - last 24 hr 11/11/24 11/11/24 10:58 12:05 WBC 11.7 H RBC 5.94 H Hgb 17.4 H Hct 51.2 H MCV 86.2 MCH 29.3 MCHC 34.0 RDW Std Deviation 41.3 RDW Coeff of [place] 13.2 Plt Count 264 MPV 8.9 Immature Gran % (Auto) 0.500 Neut % (Auto) 73.5 H Lymph % (Auto) 16.9 L Mc[place] % (Auto) 8.2 Eos % (Auto) 0.5 Baso % (Auto) 0.4 Absolute Neuts (auto) 8.6 H Absolute Lymphs (auto) 1.97 Nucleated RBC % 0 Sodium 136 Potassium 3.1 L Chloride 104 Carbon Dioxide 19.0 L Anion Gap 13 BUN 21 H Creatinine 0.79 Estim Creat Clear Calc 65.00 Est GFR (MDRD) Af Amer 95 Est GFR (MDRD) Non-Af 79 BUN/Creatinine Ratio 26.5 H Glucose 165 H Calcium 9.5 Total Bilirubin 0.50 AST 11 L ALT 11 L Alkaline Phosphatase 119 H Total Protein 7.3 Albumin 3.2 Globulin 4.1 Albumin/Globulin Ratio 0.8 L Lipase 25 Urine Color Yellow Urine Clarity Clear Urine pH 6.0 Ur Specific [place] 1.015 Urine Protein 30 H Urine Glucose (UA) 1000 H Urine Ketones 150 A* Urine Occult Blood 50 H Urine Nitrite Negative Urine Bilirubin Negative Urine Urobilinogen Normal Ur Leukocyte Esterase 25 H Urine RBC 0 SEEN Urine WBC 0-5 SEEN Ur Squamous Epith Cells 0-5 SEEN Urine Bacteria 0 SEEN Hyaline Casts 0-5 SEEN Urine Mucus 0 SEEN Radiography Diagnostic Testing: Clinical Impression(s) from Imaging Studies Abdomen/Pelvis CT 11/11/24 10:53 IMPRESSION: Acute pancolitis, likely infectious or inflammatory Prominent gastric wall which may be secondary to underdistention or sequela of gastritis. Electronically Signed: Debbie Seo MD at 12:24 EST , ADDENDUM: 11/11/24 1322 IMPRESSION: undefined Discharge Plan Triage Chief Complaint: Abd Pain Other Complaint: Nausea/Vomiting/Diarrhea ED Provider: Freedom Holt Dx/Rx/DC Orders Prescriptions: No Action alprazolam 2 MG tablet 2 mg PO BID PRN (Reason: Anxiety) rosuvastatin 10 mg tablet 10 mg PO QHS acetaminophen 500 mg Tablet 500 mg PO PRN baclofen 10 mg tablet 10 mg PO TID PRN (Reason: back pain) hydroxyzine HCl 50 mg tablet 25 - 100 mg PO DAILY PRN (Reason: anxiety) Patient Comments: PT STATES SHE DOESNT TAKE OFTEN omeprazole 20 mg capsule,delayed release(DR/EC) 20 mg PO BID aripiprazole 5 mg tablet 5 mg PO DAILY paroxetine HCl 30 mg tablet 30 mg PO DAILY fluticasone propionate 50 mcg/actuation spray,suspension 2 spray intranasal PRN PRN (Reason: Nasal Congestion) (DME) Altera Nebulizer System Misc See Rx Instructions .ROUTE .MEDSUPPLY Qty: 1 3RF Rx Instructions: nebulizer and supplies (DME) blood-glucose meter [OneTouch Verio Flex meter] Misc See Rx Instructions .ROUTE .MEDSUPPLY Qty: 1 0RF Rx Instructions: As directed - Check blood sugar daily (DME) Blood Glucose Test Strip See Rx Instructions .ROUTE .MEDSUPPLY Qty: 50 3RF Rx Instructions: use to monitor blood sugar daily for type 2 DM (DME) blood-glucose meter Misc See Rx Instructions .ROUTE .MEDSUPPLY Qty: 1 0RF Rx Instructions: use to monitor blood sugar daily for type 2 DM (DME) lancets 32 gauge misc See Rx Instructions .ROUTE .MEDSUPPLY Qty: 100 3RF Rx Instructions: use to check blood sugar for type 2 DM ipratropium-albuterol 0.5 mg-3 mg(2.5 mg base)/3 mL solution for nebulization 3 ml INHALATION Q8H PRN (Reason: shortness of breath or wheezing) Qty: 90 3RF (DME) OneTouch Verio test strips Strip See Rx Instructions .ROUTE .MEDSUPPLY Qty: 100 3RF Rx Instructions: Check blood sugar daily budesonide-formoterol [Symbicort] 160-4.5 mcg/actuation HFA aerosol inhaler 2 puff INHALATION BID Qty: 10.2 3RF albuterol sulfate [Ventolin HFA] 90 mcg/actuation HFA aerosol inhaler 2 puff INHALATION Q6H PRN (Reason: shortness of breath or wheezing) Qty: 8 3RF Jardiance 25 mg tablet 25 mg PO QAM Qty: 30 0RF Primary Care Provider: Coral Monae NP Referrals: Coral Monae NP, [employer] [Primary Care Provider] - Print Language: Pashto
[2024-11-11 11:16] LABS: Absolute Lymphocyte Count 1.97 X10^3/uL (0.83-4.51); Absolute Neutrophil Count 8.6 X10^3/uL (2.0-7.7); Basophil# 0.05 X10^3/uL; Basophil% 0.4 % (0-1); Eosinophil# 0.06 X10^3/uL; Eosinophils% 0.5 % (0-5); Hematocrit 51.2 % (37-47); Hemoglobin 17.4 g/dL (12.0-15.0); Lymphocyte # 1.97 X10^3/ul (0.83-4.51); Lymphocyte % 16.9 % (19-41); Mean Corpuscular Hgb 29.3 pg (27.0-32.0); Mean Corpuscular Volume 86.2 fL (81-99); Mean Platelet Vol. 8.9 fl (6.2-12.0); Monocyte# 0.96 X10^3/uL; Monocyte% 8.2 % (0-10); NRBC Flagged by Analyzer 0 % (0-5); Neutrophil # 8.58 X10^3/uL (2.7-7.7); Neutrophil % 73.5 % (47-70); Platelet Count 264 K/mm3 (150-450); RBC Distribution Width CV 13.2 % (11.6-14.6); RBC Distribution Width SD 41.3 fl (35.1-43.9); Red Blood Count 5.94 M/mm3 (4.2-5.4); White Blood Count 11.7 K/mm3 (4.4-11.0)
[2024-11-11 11:32] LABS: ALB/GLOB Ratio 0.8 RATIO (0.9-2.4); AST(SGOT) 11 U/L (15-37); Alanine Aminotransfer ALT/SGPT 11 U/L (13-56); Albumin, Serum 3.2 g/dL (3.2-5.0); Alkaline Phosphatase 119 U/L (45-117); Anion Gap 13 (5-15); BUN 21 mg/dL (7-18); BUN/Creat Ratio 26.5 RATIO (10-20); Calcium,Total 9.5 mg/dL (8.5-10.1); Chloride 104 mmol/L (98-107); Creatinine, Serum 0.79 mg/dL (0.55-1.02); EST Glomerular Filtration Rate 79 mL/min (>60); Est Glom Filt Rate - Afr Amer 95 mL/min (>60); Globulin 4.1 g/dL (2.2-4.2); Glucose 165 mg/dL (74-106); Lipase 25 U/L (13-75); Potassium 3.1 mmol/L (3.5-5.1); Protein, Total 7.3 g/dL (6.4-8.2); Sodium Level 136 mmol/L (136-145)
[2024-11-11 12:10] LABS: Bacteria 0 SEEN /hpf (None Seen); Mucous, Urine 0 SEEN /hpf (<or=2+); Red Blood Cells-Urine 0 SEEN /hpf (0-5)
[2024-11-11 12:11] LABS: Color, Urine Yellow (Yellow); Glucose, Dipstick 1000 mg/dl (Normal); Leukocyte Esterase-Dipstick 25 /ul (Negative); Nitrite-Dipstick Negative (Negative); Occult Blood-Urine 50 /ul (Negative); Protein-Dipstick 30 mg/dl (Negative); Specific Gravity, Urine 1.015 (1.002-1.030); Urine Bilirubin Dipstick Negative (Negative); Urine Clarity Clear (Clear); Urine Urobilinogen Normal (Normal)
[2024-11-11 12:17] LABS: Ketone-Dipstick 150 mg/dl (Negative)
[2024-11-11 12:20] LABS: Hyaline Cast 0-5 SEEN /lpf (0-5); Squamous Epithelial Cells - UA 0-5 SEEN /hpf (5-10); White Blood Cells 0-5 SEEN /hpf (0-5)
[2024-11-11] MEDS: HYDROmorphone 0.5 MG/0.5 ML SYRINGE IV (12:35)
[2024-11-11] MEDS: Piperacil/Tazobactam 3.375 GM in 0.9% Normal Saline (50mL MB+) 50 ML IV ×2 (13:04→21:47)
--- NOTE | 2024-11-11 13:51 | HP.PCM.HOS_ITS ---
[facility] - General General Date of Service: 11/11/24 Chief Complaint: abdominal pain. [facility] Narrative RHONDA MORRISON, is a 59 F who presents with pain. Symptoms began this past Friday associated with abdominal pain more like all, nausea, vomiting Daniela. Over the past couple days, she has been having hematochezia. In fact that she was not getting better, she presented to the emergency room for evaluation. Patient had a CAT scan that showed pancolitis. She received pain medications and IV fluids as well as pip-tazo. She has never had any symptoms like this in the past. She has never had a history of Crohn's disease or ulcerative colitis. She is a smoker smoking 1.5 to 2 packs cigarettes per day. [facility] Medical History Intractable migraine Spondylolisthesis, lumbar region Wears glasses Anxiety Bipolar disorder Marijuana use Diabetes Arthritis High cholesterol Excessive bleeding Restless legs Back pain Urinary incontinence Flu vaccine need Easy bruising Back pain Essential hypertension Chronic back pain Grief Encounter for screening for malignant neoplasm of lung in current smoker with 30 pack year history or greater Cough Acute exacerbation of chronic low back pain GERD (gastroesophageal reflux disease) Abnormal EKG Panic attack Anxiety and depression Head injury Fall Concussion Muscle spasm Chronic radicular lumbar pain Type 2 diabetes mellitus Post concussion syndrome Vision problems Neuropathy IBS (irritable bowel syndrome) Hyperlipidemia Chronic headaches Hx of emotional problems Carpal tunnel syndrome Asthma Seasonal allergies Home Medications ?Medication ?Instructions ?Recorded ?Last Taken ?Type alprazolam 2 mg tablet 2 mg PO BID PRN Anxiety 03/24/19 01/04/24 History nebulizers (Altera Nebulizer #1 ea 09/06/20 Unknown Rx System) blood-glucose meter (OneTouch #1 ea 11/27/21 Unknown Rx Verio Flex Meter) blood sugar diagnostic (Blood #50 ea 11/28/21 Unknown Rx Glucose Test strips) blood-glucose meter #1 ea 11/28/21 Unknown Rx lancets 32 gauge #100 ea 11/28/21 Unknown Rx ipratropium 0.5 mg-albuterol 3 mg 3 ml inhalation Q8H PRN shortness 07/22/22 01/05/24 Rx (2.5 mg base)/3 mL nebulization of breath or wheezing #90 mL soln blood sugar diagnostic (OneTouch #100 ea 08/28/22 Unknown Rx Verio test strips) budesonide-formoterol HFA 160 2 puff inhalation BID ASTHMA #10.2 11/04/22 11/11/24 Rx mcg-4.5 mcg/actuation aerosol grams inhaler (Symbicort) Ventolin HFA 90 mcg/actuation 2 puff inhalation Q6H PRN 12/09/22 01/04/24 Rx aerosol inhaler (albuterol sulfate) shortness of breath or wheezing #8 grams empagliflozin 25 mg tablet 25 mg PO QAM DM #30 tabs 08/25/23 11/11/24 Rx (Jardiance) rosuvastatin 10 mg tablet 10 mg PO QHS HLD 12/22/23 11/10/24 History acetaminophen 500 mg tablet 500 mg PO PRN 06/21/24 Unknown History baclofen 10 mg tablet 10 mg PO TID PRN back pain 06/21/24 Unknown History aripiprazole 5 mg tablet 5 mg PO DAILY 11/11/24 11/11/24 History fluticasone propionate 50 2 spray intranasal PRN PRN Nasal 11/11/24 11/11/24 History mcg/actuation nasal Congestion spray,suspension hydroxyzine HCl 50 mg tablet 25 - 100 mg PO DAILY PRN anxiety 11/11/24 Unknown History omeprazole 20 mg capsule,delayed 20 mg PO BID 11/11/24 11/11/24 History release paroxetine HCl 30 mg tablet 30 mg PO DAILY 11/11/24 11/11/24 History Allergy/AdvReac Type Severity Reaction Status Date / Time red dye Allergy Severe swelling Verified 11/11/24 10:10 carbidopa Allergy Unknown Verified 11/11/24 10:10 gabapentin Allergy Unknown Verified 11/11/24 10:10 latex Allergy Rash Verified 11/11/24 10:10 quetiapine fumarate (From Allergy Other Verified 11/11/24 10:10 Seroquel) topiramate (From Topamax) Allergy Hives Verified 11/11/24 10:10 tramadol HCl (From Ultram) Allergy Other Verified 11/11/24 10:10 amitriptyline AdvReac Vomiting Verified 11/11/24 10:10 aspirin AdvReac Upset Verified 11/11/24 10:10 Stomach cyclobenzaprine HCl (From AdvReac Upset Verified 11/11/24 10:10 Flexeril) Stomach etodolac (Etodolac) AdvReac Vomiting Verified 11/11/24 10:10 hydrocodone bitartrate (From AdvReac Vomiting Verified 11/11/24 10:10 Vicodin) metformin AdvReac Diarrhea Verified 11/11/24 10:10 metoclopramide (From Reglan) AdvReac Other Verified 11/11/24 10:10 naproxen (From Naprosyn) AdvReac Upset Verified 11/11/24 10:10 Stomach propoxyphene napsylate (From AdvReac Vomiting Verified 11/11/24 10:10 Darvocet-N 100) Family History Mother Malignant hyperthermia due to anesthesia Angina pectoris Arthritis Bowel disease Myocardial infarction Heart disease Hypertension High cholesterol CVA (cerebral vascular accident) Father Asthma Arthritis Myocardial infarction Heart disease High cholesterol Hypertension CVA (cerebral vascular accident) Leukemia Diabetes Grandmother Lung cancer Grandfather Diabetes Grandmother Diabetes Surgical History Status post lumbar spinal fusion History of back surgery History of rectal surgery History of colonoscopy History of foot surgery History of nasal polypectomy S/P knee surgery History of total hysterectomy History of cholecystectomy History of partial hysterectomy History of Social History household members: none Smoking Status: Current every day smoker tobacco type: cigarettes Tobacco: How many years used: 46 Electronic Cigarette Use: not used how long ago did patient quit smokin+ pack year smoking history (1.5-2 ppd x 32 years, 3 ppd x 14 years). second hand exposure: Yes quit status: considering quitting alcohol intake: never substance use type: does not use what type of physical activity do you participate in: walking and bicycling ROS ROS Narrative No fever or chills. Has not been eating much over the past several days. All review of systems were negative except as mentioned above in the history of present illness and the other review of systems. Vital Signs Vital Signs Vital Signs: 11/11/24 10:10 11/11/24 12:00 11/11/24 13:17 Temperature 36.4 C L 36.6 C Temperature Source Temporal Pulse Rate 127 H 72 103 H Respiratory Rate 18 16 16 Blood Pressure 120/93 H 128/84 H 108/81 H Blood Pressure Mean 102 98 90 Pulse Ox 97 99 97 Oxygen Delivery Method Room Air Room Air 11/11/24 13:18 Temperature 36.6 C Temperature Source Temporal Pulse Rate 103 H Respiratory Rate 16 Blood Pressure 108/81 H Blood Pressure Mean 90 Pulse Ox 97 Oxygen Delivery Method Room Air Weight Weight: 60.781 kg Body Mass Index (BMI) 23.7 Physical Exam Const alert and no apparent distress Constitutional Narrative: Nontoxic. Afebrile. HEENT normocephalic and head/scalp atraumatic Resp normal respiratory effort, no retractions, no use of accessory muscles and clear to auscultation bilaterally Cardio regular rate, regular rhythm, S1 normal heart sound and S2 normal heart sound GI GI Narrative: Tender palpation in the right upper quadrant as well as umbilical region. No rebound. Nondistended. Extremity normal to inspection and no clubbing, cyanosis or edema Neuro moves all extremities and no focal motor deficits Sensorium / Orientation: awake and alert Psych affect normal Results Lab / Micro Data Attestation: I reviewed the patient's lab results. 11/11/24 10:58 11/11/24 10:58 Labs: Laboratory Results - last 24 hr 11/11/24 10:58: WBC 11.7 H, RBC 5.94 H, Hgb 17.4 H, Hct 51.2 H, MCV 86.2, MCH 29.3, MCHC 34.0, RDW Std Deviation 41.3, RDW Coeff of [place] 13.2, Plt Count 264, MPV 8.9, Immature Gran % (Auto) 0.500, Neut % (Auto) 73.5 H, Lymph % (Auto) 16.9 L, [place] % (Auto) 8.2, Eos % (Auto) 0.5, Baso % (Auto) 0.4, Absolute Neuts (auto) 8.6 H, Absolute Lymphs (auto) 1.97, Nucleated RBC % 0, Sodium 136, Potassium 3.1 L, Chloride 104, Carbon Dioxide 19.0 L, Anion Gap 13, BUN 21 H, Creatinine 0.79, Estim Creat Clear Calc 65.00, Est GFR (MDRD) Af Amer 95, Est GFR (MDRD) Non-Af 79, BUN/Creatinine Ratio 26.5 H, Glucose 165 H, Calcium 9.5, Total Bilirubin 0.50, AST 11 L, ALT 11 L, Alkaline Phosphatase 119 H, Total Protein 7.3, Albumin 3.2, Globulin 4.1, Albumin/Globulin Ratio 0.8 L, Lipase 25 11/11/24 12:05: Urine Color Yellow, Urine Clarity Clear, Urine pH 6.0, Ur Specific [place] 1.015, Urine Protein 30 H, Urine Glucose (UA) 1000 H, Urine Ketones 150 A*, Urine Occult Blood 50 H, Urine Nitrite Negative, Urine Bilirubin Negative, Urine Urobilinogen Normal, Ur Leukocyte Esterase 25 H, Urine RBC 0 SEEN, Urine WBC 0-5 SEEN, Ur Squamous Epith Cells 0-5 SEEN, Urine Bacteria 0 SEEN, Hyaline Casts 0-5 SEEN, Urine Mucus 0 SEEN Micro: Microbiology 11/11/24 10:50 Stool Stool Occult Blood ([place]) - Final Occult Blood Positive Imaging Radiology Impression Abdomen/Pelvis CT 11/11/24 10:53 IMPRESSION: Acute pancolitis, likely infectious or inflammatory Prominent gastric wall which may be secondary to underdistention or sequela of gastritis. Electronically Signed: Debbie Seo MD at 12:24 EST Reading Location ID and State: [facility] / [place] Tel , Service support , ADDENDUM: 11/11/24 1322 IMPRESSION: undefined Assessment & Plan Assessment/Plan (1) Colitis: PLAN: Suspect ischemic versus infectious. Less likely inflammatory. Will continue with antibiotics with pip-tazo and this was ordered in the emergency room. Pain control. Antiemetics. Check enteric panel. Low likelihood of this being C. difficile. I favor this being ischemic being that she is a very heavy smoker. Patient clear liquid diet but will continue with IV fluids as she has not been eating over the past several days. (2) GI bleed: PLAN: Secondary to colitis Treat the underlying process Monitor hemoglobin. PLAN: Plan Chronic conditions * Anxiety: Continue with lorazepam and hydroxyzine. Also on Abilify. * Diabetes mellitus type 2: Hold Jardiance. Sliding scale insulin. VTE prophylaxis with SCDs. CODE STATUS: Addressed with the patient. Patient wishes to be full code. Charges/Coding Visit Charges Inpatient E&M: 80655 Disch Hosp >30min
[2024-11-11 14:27] LABS: Lactic Acid 0.9 mmol/L (0.4-1.9)
[2024-11-11] MEDS: 0.9% Normal Saline (1000mL) 1,000 ML 150 ML IV ×2 (15:31→21:47)
[2024-11-11] MEDS: Morphine 2 MG/ML Syringe IV ×2 (16:38→21:32)
[2024-11-11] MEDS: 0.9% Saline Lock 10 ML Syringe IV ×2 (16:38→21:33)
[2024-11-11] MEDS: ALPRAZolam 0.5 MG Tablet 2 MG PO (16:48)
--- NOTE | 2024-11-11 17:08 | NURSING ---
Pt wanted her Xanax even though its BID prn this RN recommended to take it at bedtime. Pt said she is really anxious after being hospitalized. Given per pt request.
[2024-11-11 17:27] LABS: Bedside Glucose 105 mg/dL (74-106)
[2024-11-11] MEDS: Budesonide Respules 0.5 MG/2 ML AMPUL.NEB. INHALATION (19:50)
[2024-11-11] MEDS: Albuterol 2.5 MG/3 ML VIAL.NEB. INHALATION (19:50)
[2024-11-11] MEDS: Atorvastatin Calcium 20 MG Tablet PO (21:47)
[2024-11-11] MEDS: Pantoprazole Sodium 20 MG Tablet PO (21:47)
[2024-11-11 22:30] LABS: Bedside Glucose 94 mg/dL (74-106)
[2024-11-12] VITALS (12 sets, daily range): BP systolic 96–121; BP diastolic 66–88; PULSE 72–96; RESP 15–18; TEMP 36.5–37.1; O2SAT 94–97
[2024-11-12] MEDS: Morphine 2 MG/ML Syringe IV ×4 (01:04→18:06)
[2024-11-12] MEDS: Ondansetron 4 MG/2 ML Vial IV ×3 (01:04→21:03)
[2024-11-12] MEDS: Piperacil/Tazobactam 3.375 GM in 0.9% Normal Saline (50mL MB+) 50 ML IV ×2 (06:15→13:03)
[2024-11-12] MEDS: 0.9% Saline Lock 10 ML Syringe IV ×5 (06:16→21:03)
[2024-11-12 06:46] LABS: Bedside Glucose 110 mg/dL (74-106)
[2024-11-12] MEDS: Budesonide Respules 0.5 MG/2 ML AMPUL.NEB. INHALATION ×2 (06:50→20:48)
[2024-11-12] MEDS: Albuterol 2.5 MG/3 ML VIAL.NEB. INHALATION ×3 (06:50→20:48)
--- NOTE | 2024-11-12 07:27 | PN.HOSP_ITS ---
Reason for Visit Reason for Visit: Diagnoses Noninfective gastroenteritis and colitis, unspecified (11/11/24) Gastrointestinal hemorrhage, unspecified (11/11/24) Subjective Subjective Feeling better. No further N/V, no hematochezia. Objective Data Objective Data Vital Signs: Vital Signs Temp Pulse Resp BP Pulse Ox O2 Del Method 36.9 C 86 16 111/78 94 Room Air 11/12/24 06:04 11/12/24 06:04 11/12/24 06:04 11/12/24 06:04 11/12/24 06:04 11/12/24 06:04 Oxygen Delivery Method Room Air Weight: 60.781 kg Body Mass Index (BMI) 23.7 Intake & Output: Intake and Output for Last 24 Hours 11/10/24 11/11/24 11/12/24 23:59 23:59 23:59 Intake Total 2390 / 2390 1350 / 1350 Balance 2390 / 2390 1350 / 1350 Lab / Micro Data 11/12/24 06:37 11/12/24 06:37 Labs: Laboratory Results - last 24 hr 11/11/24 10:58: WBC 11.7 H, RBC 5.94 H, Hgb 17.4 H, Hct 51.2 H, MCV 86.2, MCH 29.3, MCHC 34.0, RDW Std Deviation 41.3, RDW Coeff of Salvador 13.2, Plt Count 264, MPV 8.9, Immature Gran % (Auto) 0.500, Neut % (Auto) 73.5 H, Lymph % (Auto) 16.9 L, Tate % (Auto) 8.2, Eos % (Auto) 0.5, Baso % (Auto) 0.4, Absolute Neuts (auto) 8.6 H, Absolute Lymphs (auto) 1.97, Nucleated RBC % 0, Sodium 136, Potassium 3.1 L, Chloride 104, Carbon Dioxide 19.0 L, Anion Gap 13, BUN 21 H, Creatinine 0.79, Estim Creat Clear Calc 65.00, Est GFR (MDRD) Af Amer 95, Est GFR (MDRD) Non-Af 79, BUN/Creatinine Ratio 26.5 H, Glucose 165 H, Calcium 9.5, Total Bilirubin 0.50, AST 11 L, ALT 11 L, Alkaline Phosphatase 119 H, Total Protein 7.3, Albumin 3.2, Globulin 4.1, Albumin/Globulin Ratio 0.8 L, Lipase 25 11/11/24 12:05: Urine Color Yellow, Urine Clarity Clear, Urine pH 6.0, Ur Specific [place] 1.015, Urine Protein 30 H, Urine Glucose (UA) 1000 H, Urine Ketones 150 A*, Urine Occult Blood 50 H, Urine Nitrite Negative, Urine Bilirubin Negative, Urine Urobilinogen Normal, Ur Leukocyte Esterase 25 H, Urine RBC 0 SEEN, Urine WBC 0-5 SEEN, Ur Squamous Epith Cells 0-5 SEEN, Urine Bacteria 0 SEEN, Hyaline Casts 0-5 SEEN, Urine Mucus 0 SEEN 11/11/24 13:25: Lactic Acid 0.9 11/11/24 16:43: POC Glucose 105 11/11/24 21:43: POC Glucose 94 11/12/24 06:08: POC Glucose 110 H Micro: Microbiology 11/11/24 10:50 Stool Stool Occult Blood (MICH) - Final Occult Blood Positive Radiography Diagnostic Testing: Radiology Impression Abdomen/Pelvis CT 11/11/24 10:53 IMPRESSION: Acute pancolitis, likely infectious or inflammatory Prominent gastric wall which may be secondary to underdistention or sequela of gastritis. Electronically Signed: Debbie Seo MD at 12:24 EST , ADDENDUM: 11/11/24 1322 IMPRESSION: undefined Physical Exam Const alert and no apparent distress HEENT head/scalp atraumatic and moist oral mucous membranes Resp normal respiratory effort, no retractions, no use of accessory muscles and clear to auscultation bilaterally Cardio regular rate, regular rhythm, S1 normal heart sound and S2 normal heart sound GI non-tender GI Narrative: ttp Assessment & Plan Assessment/Plan (1) Colitis: PLAN: Campylobacter. DC pip/tazo, start azithromycin 500 daily for 3 days. Can switch to PO. I favor this being ischemic being that she is a very heavy smoker. Advance diet to fulls (2) GI bleed: PLAN: Secondary to colitis Treat the underlying process Monitor hemoglobin. No additional work up at this time. PLAN: Plan Chronic conditions * Anxiety: Continue with lorazepam and hydroxyzine. Also on Abilify. * Diabetes mellitus type 2: Hold Jardiance. Sliding scale insulin. * Tobacco abuse: 1.5-2 PPD. Advised cessation. Nicotine TD. VTE prophylaxis with SCDs. CODE STATUS: Addressed with the patient. Patient wishes to be full code. Charges/Coding Visit Charges Inpatient E&M: 07782 Subs Hosp L2
[2024-11-12 07:34] LABS: Absolute Neutrophil Count 4.7 X10^3/uL (2.0-7.7); Basophil# 0.02 X10^3/uL; Basophil% 0.3 % (0-1); Eosinophil# 0.11 X10^3/uL; Eosinophils% 1.5 % (0-5); Hematocrit 45.9 % (37-47); Hemoglobin 14.9 g/dL (12.0-15.0); Lymphocyte % 23.6 % (19-41); Mean Corp Hgb Conc 32.5 g/dL (32-36); Mean Corpuscular Hgb 28.9 pg (27.0-32.0); Mean Platelet Vol. 9.3 fl (6.2-12.0); Monocyte# 0.63 X10^3/uL; Monocyte% 8.7 % (0-10); NRBC Flagged by Analyzer 0 % (0-5); Neutrophil # 4.74 X10^3/uL (2.7-7.7); Neutrophil % 65.8 % (47-70); Platelet Count 262 K/mm3 (150-450); RBC Distribution Width CV 13.2 % (11.6-14.6); RBC Distribution Width SD 43.5 fl (35.1-43.9); Red Blood Count 5.16 M/mm3 (4.2-5.4); White Blood Count 7.2 K/mm3 (4.4-11.0)
[2024-11-12 08:38] LABS: Anion Gap 5 (5-15); BUN 10 mg/dL (7-18); BUN/Creat Ratio 16.8 RATIO (10-20); Calcium,Total 8.7 mg/dL (8.5-10.1); Chloride 106 mmol/L (98-107); EST Glomerular Filtration Rate 109 mL/min (>60); Est Glom Filt Rate - Afr Amer 132 mL/min (>60); Estimated Creatinine Clearance 85.59 ml/min; Glucose 113 mg/dL (74-106); Potassium 2.7 mmol/L (3.5-5.1); Sodium Level 138 mmol/L (136-145)
[2024-11-12] MEDS: ARIPiprazole 5 MG Tablet PO (09:48)
[2024-11-12] MEDS: Pantoprazole Sodium 20 MG Tablet PO ×2 (09:48→21:03)
[2024-11-12] MEDS: Potassium Chloride Oral Tablet 20 MEQ 40 MEQ PO ×2 (09:48→17:44)
[2024-11-12] MEDS: PARoxetine 10 MG Tablet 30 MG PO (09:48)
[2024-11-12] MEDS: ALPRAZolam 0.5 MG Tablet 2 MG PO ×2 (10:07→22:15)
--- NOTE | 2024-11-12 11:27 | CASEMGMT ---
TORIE MOCK Assessment Face to Face with patient for initial transition planning/care coordination assessment. TORIE MOCK introduced self and role at [facility], pt voices understanding. Pt is A&Ox4 and is resting comfortably in bed and is calm. Care providers, pharmacy, and demographics verified. Admitting dx: Colitis LACE Strata: 3 PCP: Coral Monae Specialists: Sean (Ortho), Gerard (Ortho) Preferred Pharmacy: [facility] Insurance: [facility]/[employer] Prescription Benefit: Yes LNOK: Hannah Rico (Friend), Sage Martinez (Friend) Living Arrangements: Pt lives with her BF/SO in a single story home with a basement and 3 steps to enter. Pt states that her BF is a long-distance cdl dedicated truck driver and that he is only home a couple days a week. ADLs/IADLs: Ind Transportation: Pt states that her car is currently broken. Pt states that her friend Hannah drives her as well as her BF when he is home DME: Functioning [facility] with sufficient supplies. FWW. Nebulizer. Electronic back brace. HHC/SNF: Denies Hx or needs. Reports Hx at [facility] for OP therapy. Pt?s goal: Home Plan: Home no needs. 6-Click score is 21. Pt denies the need for HH, OP Tx, SNF, CCN, or Pt Link. Pt states that she feels safe returning home at time of DC and denies further questions, concerns, or needs at this time. Report given to MS3 TORIE MOCK. Oleksandr Sunshine RN, CM
[2024-11-12 12:03] LABS: Bedside Glucose 186 mg/dL (74-106)
[2024-11-12] MEDS: Insulin Lispro 100 UNIT/ML INSULN.PEN SC ×2 (12:44→17:44)
[2024-11-12] MEDS: Azithromycin 500 MG in Dextrose 5%-Water (250mL Bag) 250 ML 250 MG IV (14:17)
--- NOTE | 2024-11-12 14:52 | CHAPLAIN ---
Type of Pastoral Visit _x__ Initial Visit ___ Follow-up Visit ___ On-call Visit ___ General Patient Visit ___ Spiritual Assessment ___ Family Conference ___ Bereavement ___ Rapid Response ___ Code Blue ___ Other (describe below) Pastoral Care Referral From _x__ Patient ___ Family ___ Nurse ___ Physician ___ World Renowned Chef And Restaurant Owner ___ Trading Manager ___ Other (describe below) Sacrament/Intervention _x__ Active listening ___ Anointing ___ Uatsdin ___ Bereavement ___ Communion _x__ Amrita exploration ___ ___ Life review _x__ Prayer ___ Reconciliation ___ Sacrament of Sick _x__ Supportive presence ___ Wedding ___ Other (describe below) Pastoral Comments patient admits to feelings of being scared as this is a surprise illness; pt feels pressure of having everything ready for Elliott; pt states that her uatsdin does not have a frame runner at this time and I wanted someone to pray with me;
[2024-11-12 16:34] LABS: Bedside Glucose 160 mg/dL (74-106)
[2024-11-12] MEDS: Atorvastatin Calcium 20 MG Tablet PO (21:03)
[2024-11-12 22:39] LABS: Bedside Glucose 104 mg/dL (74-106)
[2024-11-13] VITALS (8 sets, daily range): BP systolic 100–114; BP diastolic 67–86; PULSE 63–84; RESP 16–19; TEMP 36.4–36.9; O2SAT 91–97
[2024-11-13] MEDS: 0.9% Saline Lock 10 ML Syringe IV ×5 (02:25→21:37)
[2024-11-13] MEDS: Morphine 2 MG/ML Syringe IV ×4 (02:31→21:37)
[2024-11-13] MEDS: hydrOXYzine PAM 25 MG Capsule PO (03:03)
[2024-11-13 06:58] LABS: Bedside Glucose 113 mg/dL (74-106)
[2024-11-13] MEDS: Ondansetron 4 MG/2 ML Vial IV (06:58)
[2024-11-13] MEDS: Albuterol 2.5 MG/3 ML VIAL.NEB. INHALATION ×2 (07:36→19:47)
[2024-11-13] MEDS: Budesonide Respules 0.5 MG/2 ML AMPUL.NEB. INHALATION ×2 (07:36→19:47)
[2024-11-13] MEDS: PARoxetine 10 MG Tablet 30 MG PO (08:28)
[2024-11-13] MEDS: Pantoprazole Sodium 20 MG Tablet PO ×2 (08:28→21:27)
[2024-11-13] MEDS: ARIPiprazole 5 MG Tablet PO (08:28)
[2024-11-13] MEDS: Potassium Chloride Oral Tablet 20 MEQ 40 MEQ PO ×2 (08:28→17:37)
[2024-11-13] MEDS: ALPRAZolam 0.5 MG Tablet 2 MG PO (10:12)
[2024-11-13] MEDS: Azithromycin 500 MG in Dextrose 5%-Water (250mL Bag) 250 ML 250 MG IV (11:07)
[2024-11-13] MEDS: Insulin Lispro 100 UNIT/ML INSULN.PEN SC (11:48)
[2024-11-13 11:52] LABS: Bedside Glucose 300 mg/dL (74-106)
--- NOTE | 2024-11-13 13:55 | PN.HOSP_ITS ---
Reason for Visit Reason for Visit: Diagnoses Noninfective gastroenteritis and colitis, unspecified (11/11/24) Gastrointestinal hemorrhage, unspecified (11/11/24) Subjective Subjective Still with diarrhea that is still watery. Objective Data Objective Data Vital Signs: Vital Signs Temp Pulse Resp BP Pulse Ox O2 Del Method O2 Flow Rate 36.7 C 84 18 100/86 H 95 Room Air 2 11/13/24 08:16 11/13/24 08:16 11/13/24 08:16 11/13/24 08:16 11/13/24 08:18 11/13/24 08:18 11/13/24 02:38 Oxygen Flow Rate (L/min) 2 Oxygen Delivery Method Room Air Weight: 60.781 kg Body Mass Index (BMI) 23.7 Intake & Output: Intake and Output for Last 24 Hours 11/11/24 11/12/24 11/13/24 23:59 23:59 23:59 Intake Total 2390 / 2390 2721.04 / 2721.04 250 / 250 Balance 2390 / 2390 2721.04 / 2721.04 250 / 250 Lab / Micro Data 11/12/24 06:37 11/12/24 06:37 Labs: Laboratory Results - last 24 hr 11/12/24 16:16: POC Glucose 160 H 11/12/24 21:01: POC Glucose 104 11/13/24 06:36: POC Glucose 113 H 11/13/24 11:34: POC Glucose 300 H Micro: Microbiology 11/11/24 17:08 Stool Enteric Bacteriology - Final Campylobacter species 11/11/24 10:50 Stool Stool Occult Blood (MICH) - Final Occult Blood Positive Physical Exam Const alert and no apparent distress HEENT head/scalp atraumatic and moist oral mucous membranes Resp normal respiratory effort, no retractions, no use of accessory muscles and clear to auscultation bilaterally Cardio regular rate, regular rhythm, S1 normal heart sound and S2 normal heart sound GI GI Narrative: TTP, but appears less prominent. Extremity normal to inspection Assessment & Plan Assessment/Plan (1) Colitis: PLAN: Campylobacter. DC pip/tazo, start azithromycin 500 daily for 3 days. Can switch to PO. I favor this being ischemic being that she is a very heavy smoker. Advance diet to fulls IVF. (2) GI bleed: PLAN: Resolved Secondary to colitis Treat the underlying process Monitor hemoglobin. No additional work up at this time. PLAN: Plan Chronic conditions * Anxiety: Continue with lorazepam and hydroxyzine. Also on Abilify. * Diabetes mellitus type 2: Hold Jardiance. Sliding scale insulin. * Tobacco abuse: 1.5-2 PPD. Advised cessation. Nicotine TD. VTE prophylaxis with SCDs. CODE STATUS: Addressed with the patient. Patient wishes to be full code. Dispositoin: TBD. If pt can eat diarrhea continues to improve, then could discharge. Charges/Coding Visit Charges Inpatient E&M: 67958 Subs Hosp L2
[2024-11-13] MEDS: 0.9% Normal Saline (1000mL) 1,000 ML 150 ML IV (14:25)
[2024-11-13] MEDS: proCHLORPERazine 10 MG/2 ML Vial IV (14:26)
--- NOTE | 2024-11-13 16:05 | NURSING ---
Pt used call light to request pain medication. Pt asleep when this nurse went to room to assess <10 min after being informed of request.
[2024-11-13 17:13] LABS: Bedside Glucose 100 mg/dL (74-106)
[2024-11-13] MEDS: Atorvastatin Calcium 20 MG Tablet PO (21:27)
[2024-11-14 01:01] LABS: Bedside Glucose 137 mg/dL (74-106)
[2024-11-14 06:22] LABS: Absolute Lymphocyte Count 2.97 X10^3/uL (0.83-4.51); Absolute Neutrophil Count 3.9 X10^3/uL (2.0-7.7); Basophil# 0.04 X10^3/uL; Basophil% 0.5 % (0-1); Eosinophil# 0.21 X10^3/uL; Eosinophils% 2.7 % (0-5); Hematocrit 42.7 % (37-47); Hemoglobin 14.1 g/dL (12.0-15.0); Lymphocyte # 2.97 X10^3/ul (0.83-4.51); Lymphocyte % 38.4 % (19-41); Mean Corpuscular Hgb 29.1 pg (27.0-32.0); Mean Platelet Vol. 8.8 fl (6.2-12.0); Monocyte# 0.55 X10^3/uL; Monocyte% 7.1 % (0-10); NRBC Flagged by Analyzer 0 % (0-5); Neutrophil # 3.93 X10^3/uL (2.7-7.7); Neutrophil % 50.8 % (47-70); Platelet Count 267 K/mm3 (150-450); RBC Distribution Width CV 13.2 % (11.6-14.6); RBC Distribution Width SD 42.8 fl (35.1-43.9); Red Blood Count 4.85 M/mm3 (4.2-5.4); White Blood Count 7.7 K/mm3 (4.4-11.0)
[2024-11-14 06:33] VITALS: BP 143/96; PULSE 81; RESP 16; TEMP 36.6; O2SAT 93
[2024-11-14 06:52] LABS: Anion Gap 3 (5-15); BUN 2 mg/dL (7-18); BUN/Creat Ratio 4.8 RATIO (10-20); Calcium,Total 8.9 mg/dL (8.5-10.1); Chloride 113 mmol/L (98-107); Creatinine, Serum 0.42 mg/dL (0.55-1.02); EST Glomerular Filtration Rate 164 mL/min (>60); Est Glom Filt Rate - Afr Amer 199 mL/min (>60); Estimated Creatinine Clearance 122.27 ml/min; Glucose 119 mg/dL (74-106); Potassium 3.8 mmol/L (3.5-5.1); Sodium Level 141 mmol/L (136-145)
[2024-11-14 06:54] LABS: Bedside Glucose 128 mg/dL (74-106)
--- NOTE | 2024-11-14 06:59 | PN.HOSP_ITS ---
Reason for Visit Reason for Visit: Diagnoses Noninfective gastroenteritis and colitis, unspecified (11/11/24) Gastrointestinal hemorrhage, unspecified (11/11/24) Subjective Subjective Still with pain, but improved. Still with diarrhea. Objective Data Objective Data Vital Signs: Vital Signs Temp Pulse Resp BP Pulse Ox O2 Del Method O2 Flow Rate 36.6 C 81 16 143/96 H 93 Room Air 2 11/14/24 06:33 11/14/24 06:33 11/14/24 06:33 11/14/24 06:33 11/14/24 06:33 11/14/24 06:33 11/13/24 19:47 Oxygen Flow Rate (L/min) 2 Oxygen Delivery Method Room Air Weight: 60.781 kg Body Mass Index (BMI) 23.7 Intake & Output: Intake and Output for Last 24 Hours 11/12/24 11/13/24 11/14/24 23:59 23:59 23:59 Intake Total 2721.04 / 2721.04 2405 / 2405 Balance 2721.04 / 2721.04 2405 / 2405 Lab / Micro Data 11/14/24 05:35 11/14/24 05:35 Labs: Laboratory Results - last 24 hr 11/13/24 11:34: POC Glucose 300 H 11/13/24 16:56: POC Glucose 100 11/13/24 21:26: POC Glucose 137 H 11/14/24 05:35: WBC 7.7, RBC 4.85, Hgb 14.1, Hct 42.7, MCV 88.0, MCH 29.1, MCHC 33.0, RDW Std Deviation 42.8, RDW Coeff of [place] 13.2, Plt Count 267, MPV 8.8, Immature Gran % (Auto) 0.500, Neut % (Auto) 50.8, Lymph % (Auto) 38.4, [place] % (Auto) 7.1, Eos % (Auto) 2.7, Baso % (Auto) 0.5, Absolute Neuts (auto) 3.9, Absolute Lymphs (auto) 2.97, Nucleated RBC % 0, Sodium 141, Potassium 3.8, C hloride 113 H, Carbon Dioxide 26.0, Anion Gap 3 L, BUN 2 L, Creatinine 0.42 L, Estim Creat Clear Calc 122.27, Est GFR (MDRD) Af Amer 199, Est GFR (MDRD) Non-Af 164, BUN/Creatinine Ratio 4.8 L, Glucose 119 H, Calcium 8.9 11/14/24 06:35: POC Glucose 128 H Micro: Microbiology 11/11/24 17:08 Stool Enteric Bacteriology - Final Campylobacter species 11/11/24 10:50 Stool Stool Occult Blood (MICH) - Final Occult Blood Positive Physical Exam Const alert and no apparent distress HEENT head/scalp atraumatic and moist oral mucous membranes GI normal to inspection, nondistended, normoactive bowel sounds, soft to palpation, non-tender and non-distended Assessment & Plan Assessment/Plan (1) Colitis: PLAN: Campylobacter. Complete azithromycin 500 daily for 3 days. Advance diet as tolerated. (2) GI bleed: PLAN: Resolved Secondary to colitis Treat the underlying process Monitor hemoglobin. No additional work up at this time. PLAN: Plan Chronic conditions * Anxiety: Continue with lorazepam and hydroxyzine. Also on Abilify. * Diabetes mellitus type 2: Hold Jardiance. Sliding scale insulin. * Tobacco abuse: 1.5-2 PPD. Advised cessation. Nicotine TD. VTE prophylaxis with SCDs. CODE STATUS: Addressed with the patient. Patient wishes to be full code. Dispositoin:Home today.
[2024-11-14 07:23] VITALS: PULSE 74; RESP 18; O2SAT 96
[2024-11-14] MEDS: Budesonide Respules 0.5 MG/2 ML AMPUL.NEB. INHALATION (07:23)
[2024-11-14] MEDS: Albuterol 2.5 MG/3 ML VIAL.NEB. INHALATION (07:23)
--- NOTE | 2024-11-14 10:18 | PCM.DC.SUM ---
Providers Date of Admission: 11/11/24 Primary Care Physician: ANDREA Fortune Reason For Visit: COLITIS Diagnosis Discharge Diagnosis (1) Colitis: Status: Acute Code(s): K52.9 - Noninfective gastroenteritis and colitis, unspecified Plan: Campylobacter. Complete azithromycin 500 daily for 3 days. Advance diet as tolerated. (2) GI bleed: Status: Acute Code(s): K92.2 - Gastrointestinal hemorrhage, unspecified Plan: Resolved Secondary to colitis Treat the underlying process Monitor hemoglobin. No additional work up at this time. Plan Chronic conditions Anxiety: Continue with lorazepam and hydroxyzine. Also on Abilify. Diabetes mellitus type 2: Hold Jardiance. Sliding scale insulin. Tobacco abuse: 1.5-2 PPD. Advised cessation. Nicotine TD. VTE prophylaxis with SCDs. CODE STATUS: Addressed with the patient. Patient wishes to be full code. Dispositoin:Home today. Medications at Discharge Home Medications alprazolam 2 mg tablet 2 mg PO BID PRN Anxiety 03/24/19 nebulizers ([employer] Nebulizer System) #1 ea 09/06/20 blood-glucose meter (OneTouch Verio Flex Meter) #1 ea 11/27/21 blood sugar diagnostic (Blood Glucose Test strips) #50 ea 11/28/21 blood-glucose meter #1 ea 11/28/21 lancets 32 gauge #100 ea 11/28/21 ipratropium 0.5 mg-albuterol 3 mg (2.5 mg base)/3 mL nebulization soln 3 ml inhalation Q8H PRN shortness of breath or wheezing #90 mL 07/22/22 blood sugar diagnostic (OneTouch Verio test strips) #100 ea 08/28/22 budesonide-formoterol HFA 160 mcg-4.5 mcg/actuation aerosol inhaler (Symbicort) 2 puff inhalation BID ASTHMA #10.2 grams 11/04/22 Ventolin HFA 90 mcg/actuation aerosol inhaler (albuterol sulfate) 2 puff inhalation Q6H PRN shortness of breath or wheezing #8 grams 12/09/22 empagliflozin 25 mg tablet (Jardiance) 25 mg PO QAM DM #30 tabs 08/25/23 rosuvastatin 10 mg tablet 10 mg PO QHS HLD 12/22/23 baclofen 10 mg tablet 10 mg PO TID PRN back pain 06/21/24 aripiprazole 5 mg tablet 5 mg PO DAILY 11/11/24 fluticasone propionate 50 mcg/actuation nasal spray,suspension 2 spray intranasal PRN PRN Nasal Congestion 11/11/24 hydroxyzine HCl 50 mg tablet 25 - 100 mg PO DAILY PRN anxiety 11/11/24 omeprazole 20 mg capsule,delayed release 20 mg PO BID 11/11/24 paroxetine HCl 30 mg tablet 30 mg PO DAILY 11/11/24 acetaminophen 500 mg tablet 1,000 mg (2 x 500 mg) PO Q8H PRN Pain #30 tabs 11/14/24 ondansetron 4 mg disintegrating tablet 4 mg PO Q8H PRN nausea and vomiting 4 days #12 tabs 11/14/24 oxycodone 5 mg tablet 5 mg PO Q4H PRN PRN Pain Score 4-10 3 days #10 tabs 11/14/24 Hospital Course Operations None Procedures None Summary of Care Provided Minutes Spent on Discharge: 32 Hospital Course: Patient presents with nausea vomiting and diarrhea. Initially felt to be due to ischemic colitis but patient still culture came back positive for Campylobacter. Patient was initially started on pip-tazo but then changed over to 3-day course of IV 5 mg of azithromycin. Patient overall is improving. Patient still with diarrhea but her abdomen is much less tender today. Patient will be discharged with no further antibiotics. Patient will be advised to advance her diet slowly as tolerated. Weight / BMI Weight Weight: 60.781 kg Body Mass Index (BMI) 23.7 ABG / Lab / Microbiology Data 11/14/24 05:35 11/14/24 05:35 Laboratory: Laboratory Results - last 24 hr 11/13/24 11:34: POC Glucose 300 H 11/13/24 16:56: POC Glucose 100 11/13/24 21:26: POC Glucose 137 H 11/14/24 05:35: WBC 7.7, RBC 4.85, Hgb 14.1, Hct 42.7, MCV 88.0, MCH 29.1, MCHC 33.0, RDW Std Deviation 42.8, RDW Coeff of [place] 13.2, Plt Count 267, MPV 8.8, Immature Gran % (Auto) 0.500, Neut % (Auto) 50.8, Lymph % (Auto) 38.4, Dane % (Auto) 7.1, Eos % (Auto) 2.7, Baso % (Auto) 0.5, Absolute Neuts (auto) 3.9, Absolute Lymphs (auto) 2.97, Nucleated RBC % 0, Sodium 141, Potassium 3.8, Chloride 113 H, Carbon Dioxide 26.0, Anion Gap 3 L, BUN 2 L, Creatinine 0.42 L, Estim Creat Clear Calc 122.27, Est GFR (MDRD) Af Amer 199, Est GFR (MDRD) Non-Af 164, BUN/Creatinine Ratio 4.8 L, Glucose 119 H, Calcium 8.9 11/14/24 06:35: POC Glucose 128 H Microbiology: Microbiology 11/11/24 17:08 Stool Enteric Bacteriology - Final Campylobacter species 11/11/24 10:50 Stool Stool Occult Blood (MICH) - Final Occult Blood Positive D/C Instructions Discharge Diet: - ([place] diet. Advance as tolerated) DC O2, CPAP, BIPAP Needs Additional Home O2 Discharge instructions: No DC home with Oxygen: No Meaningful Use Info Meaningful Use Meaningful Use Diagnoses (Choose all that apply): None applicable Ischemic Stroke Statin Dosing Therapy Reference: STATIN DOSE THERAPY REFERENCE: * Patients > 75 years receive moderate or high dose statin therapy. * Patients 75 years or YOUNGER should receive HIGH intensity statin dose unless contraindicated. You will be required to document reason for non-treatment if statin daily dose does not meet guidelines. HIGH DOSE STATIN THERAPY DAILY Atorvastatin > than or = to 40 mg Rosuvastatin > than or = to 20 mg Amlodipine + Atorvastatin > than or = to 2.5/40 mg Ezetimibe + Simvastatin 10/80 mg Simvastatin 80mg Discharge Plan Admission Admit Date/Time: 11/11/24 13:43 Primary Reason for Your Visit: Colitis Attending Provider: Kevin Bejarano Primary Care Provider: Coral Monae NP Instructions Additional Instructions / Restrictions: You had an infectious colitis due to Campylobacter. Unclear how you got Campylobacter but in the future be sure to wash your hands or use some hand mail processor before eating. You do have worsening abdominal pain, worsening diarrhea or worsening blood in your stool, notify your physician or return to the emergency room. The bloody stool was due to the infection in your colon. Discharge Orders/Prescriptions Prescriptions: New oxycodone 5 mg Tablet 5 mg PO Q4H PRN PRN (Reason: Pain Score 4-10) 3 Days Qty: 10 0RF ondansetron 4 mg tablet,disintegrating 4 mg PO Q8H PRN (Reason: nausea and vomiting) 4 Days Qty: 12 0RF Continued alprazolam 2 MG tablet 2 mg PO BID PRN (Reason: Anxiety) rosuvastatin 10 mg tablet 10 mg PO QHS baclofen 10 mg tablet 10 mg PO TID PRN (Reason: back pain) hydroxyzine HCl 50 mg tablet 25 - 100 mg PO DAILY PRN (Reason: anxiety) Patient Comments: PT STATES SHE DOESNT TAKE OFTEN omeprazole 20 mg capsule,delayed release(DR/EC) 20 mg PO BID aripiprazole 5 mg tablet 5 mg PO DAILY paroxetine HCl 30 mg tablet 30 mg PO DAILY fluticasone propionate 50 mcg/actuation spray,suspension 2 spray intranasal PRN PRN (Reason: Nasal Congestion) (DME) [employer] Nebulizer System [facility] [place] See Rx Instructions .ROUTE .MEDSUPPLY Qty: 1 3RF Rx Instructions: nebul[place] and [place] [place] blood-glucose meter [OneTouch Verio Flex meter] [facility] [place] See Rx Instructions .ROUTE .MEDSUPPLY Qty: 1 0RF Rx Instructions: As directed - Check blood sugar daily (DME) Blood Glucose Test Strip See Rx Instructions .ROUTE .MEDSUPPLY Qty: 50 3RF Rx Instructions: use to monitor blood sugar daily for type 2 DM (DME) blood-glucose meter [facility] [place] See Rx Instructions .ROUTE .MEDSUPPLY Qty: 1 0RF Rx Instructions: use to monitor blood sugar daily for type 2 DM (DME) lancets 32 gauge [facility] [place] See Rx Instructions .ROUTE .MEDSUPPLY Qty: 100 3RF Rx Instructions: use to check blood sugar for type 2 DM ipratropium-albuterol 0.5 mg-3 mg(2.5 mg base)/3 mL solution for nebulization 3 ml INHALATION Q8H PRN (Reason: shortness of breath or wheezing) Qty: 90 3RF (DME) OneTouch Verio test strips Strip See Rx Instructions .ROUTE .MEDSUPPLY Qty: 100 3RF Rx Instructions: Check blood sugar daily budesonide-formoterol [Symbicort] 160-4.5 mcg/actuation HFA aerosol inhaler 2 puff INHALATION BID Qty: 10.2 3RF albuterol sulfate [Ventolin HFA] 90 mcg/actuation HFA aerosol inhaler 2 puff INHALATION Q6H PRN (Reason: shortness of breath or wheezing) Qty: 8 3RF Jardiance 25 mg tablet 25 mg PO QAM Qty: 30 0RF Changed acetaminophen 500 mg Tablet 1,000 mg PO Q8H PRN (Reason: Pain) Qty: 30 0RF Referrals / Follow Up: Coral Monae COMMUNITY LIFE DIRECTOR, COMMUNITY LIFE DIRECTOR-C [Primary Care Provider] - Within 3 Months Disposition Disposition (needs filled in before D/C Order can be placed): Home, Self Care Charges/Coding Visit Charges Inpatient E&M: 33302 Disch Hosp >30min
[2024-11-14] MEDS: Potassium Chloride Oral Tablet 20 MEQ 40 MEQ PO (10:28)
[2024-11-14] MEDS: ARIPiprazole 5 MG Tablet PO (10:28)
[2024-11-14] MEDS: PARoxetine 10 MG Tablet 30 MG PO (10:28)
[2024-11-14] MEDS: Pantoprazole Sodium 20 MG Tablet PO (10:28)
[2024-11-14 10:32] VITALS: BP 129/90; PULSE 93; RESP 18; TEMP 36.8; O2SAT 96
[2024-11-14] MEDS: ALPRAZolam 0.5 MG Tablet 2 MG PO (10:43)
[2024-11-14] MEDS: Azithromycin 500 MG in Dextrose 5%-Water (250mL Bag) 250 ML 250 MG IV (11:06)
[2024-11-14] MEDS: 0.9% Saline Lock 10 ML Syringe IV (11:09)
[2024-11-14 11:41] LABS: Bedside Glucose 141 mg/dL (74-106)
== END 2024-11-14 12:58 | disposition home or self-care (01) | DRG 248 ==
LOC: ED 10:42 → MS3 13:54
PROVIDERS: Emergency Provider Surgery; PCP Internal Medicine
DX: A04.5 Campylobacter enteritis (principal); K92.2 Gastrointestinal hemorrhage, unspecified; E11.40 Type 2 diabetes mellitus with diabetic neuropathy, unspecified; F31.9 Bipolar disorder, unspecified; J45.909 Unspecified asthma, uncomplicated; K64.4 Residual hemorrhoidal skin tags; E78.00 Pure hypercholesterolemia, unspecified; M43.16 Spondylolisthesis, lumbar region; F41.9 Anxiety disorder, unspecified; M54.50 Low back pain, unspecified; K21.9 Gastro-esophageal reflux disease without esophagitis; F17.210 Nicotine dependence, cigarettes, uncomplicated; E87.6 Hypokalemia; E86.0 Dehydration; I95.9 Hypotension, unspecified; G89.29 Other chronic pain; Z98.1 Arthrodesis status; Z79.84 Long term (current) use of oral hypoglycemic drugs; Z79.899 Other long term (current) drug therapy; Z90.49 Acquired absence of other specified parts of digestive tract
CPT/HCPCS: 36415; 74177; 80048; 80053; 81001; 82274; 82962; 83605; 83690; 85025; 87506; 94640; 99284; 99406; J7030; Q9967; A4216; J2405

== ENCOUNTER 2024-12-27 10:38 | Emergency (ER) | payer MEDICAID, SELFPAY ==
[2024-12-27 10:39] VITALS: BP 134/96; PULSE 97; RESP 16; TEMP 37; O2SAT 96; BMI 25.7
--- NOTE | 2024-12-27 11:33 | EX.ED.DYSGE1 ---
HPI History of Present Illness Chief Complaint: Abd Pain Detail of Chief Complaint: Bright red blood per rectum Informant: patient Onset/Context/Timing Onset: Today Context: Sudden Onset Quality: Right red blood per rectum Location: GI Current Severity: Gone Maximum Severity: Moderate Worsened by: Nothing Relieved by: Nothing Associated Symptoms Associated Symptoms: No nausea, vomiting or diarrhea. No hard stool. Narrative Narrative: Patient is a 59-year-old woman. She was recently admitted for pancolitis. She had GI blood loss from that. She had severe abdominal pain. She presented with nausea, vomiting diarrhea. Patient presents now because of bright red blood per rectum. She complains of vague abdominal discomfort. She denies fever, chills night sweats she denies nausea, vomit diarrhea. She reports normal formed stool. She states there was blood on the toilet paper and blood noted in the commode. There was no blood mixed in the stool or on the stool. She has no orthostatic symptoms. Prior similar symptoms: No Recent Illness/Hospitalization: Yes [facility] Medical History Intractable migraine Spondylolisthesis, lumbar region Wears glasses Anxiety Bipolar disorder Marijuana use Diabetes Arthritis High cholesterol Excessive bleeding Restless legs Back pain Urinary incontinence Flu vaccine need Easy bruising Back pain Essential hypertension Chronic back pain Grief Encounter for screening for malignant neoplasm of lung in current smoker with 30 pack year history or greater Cough Acute exacerbation of chronic low back pain GERD (gastroesophageal reflux disease) Abnormal EKG Panic attack Anxiety and depression Head injury Fall Concussion Muscle spasm Chronic radicular lumbar pain Type 2 diabetes mellitus Post concussion syndrome Vision problems Neuropathy IBS (irritable bowel syndrome) Hyperlipidemia Chronic headaches Hx of emotional problems Carpal tunnel syndrome Asthma Seasonal allergies Home Medications ?Medication ?Instructions ?Recorded ?Last Taken ?Type alprazolam 2 mg tablet 2 mg PO BID PRN Anxiety 03/24/19 01/04/24 History nebulizers (Altera Nebulizer #1 ea 09/06/20 Unknown Rx System) blood-glucose meter (OneTouch #1 ea 11/27/21 Unknown Rx Verio Flex Meter) blood sugar diagnostic (Blood #50 ea 11/28/21 Unknown Rx Glucose Test strips) blood-glucose meter #1 ea 11/28/21 Unknown Rx lancets 32 gauge #100 ea 11/28/21 Unknown Rx ipratropium 0.5 mg-albuterol 3 mg 3 ml inhalation Q8H PRN shortness 07/22/22 01/05/24 Rx (2.5 mg base)/3 mL nebulization of breath or wheezing #90 mL soln blood sugar diagnostic (OneTouch #100 ea 08/28/22 Unknown Rx Verio test strips) budesonide-formoterol HFA 160 2 puff inhalation BID ASTHMA #10.2 11/04/22 11/11/24 Rx mcg-4.5 mcg/actuation aerosol grams inhaler (Symbicort) Ventolin HFA 90 mcg/actuation 2 puff inhalation Q6H PRN 12/09/22 01/04/24 Rx aerosol inhaler (albuterol sulfate) shortness of breath or wheezing #8 grams empagliflozin 25 mg tablet 25 mg PO QAM DM #30 tabs 08/25/23 11/11/24 Rx (Jardiance) rosuvastatin 10 mg tablet 10 mg PO QHS HLD 12/22/23 11/10/24 History baclofen 10 mg tablet 10 mg PO TID PRN back pain 06/21/24 Unknown History aripiprazole 5 mg tablet 5 mg PO DAILY 11/11/24 11/11/24 History fluticasone propionate 50 2 spray intranasal PRN PRN Nasal 11/11/24 11/11/24 History mcg/actuation nasal Congestion spray,suspension hydroxyzine HCl 50 mg tablet 25 - 100 mg PO DAILY PRN anxiety 11/11/24 Unknown History omeprazole 20 mg capsule,delayed 20 mg PO BID 11/11/24 11/11/24 History release paroxetine HCl 30 mg tablet 30 mg PO DAILY 11/11/24 11/11/24 History acetaminophen 500 mg tablet 1,000 mg (2 x 500 mg) PO Q8H PRN 11/14/24 Unknown Rx Pain #30 tabs ondansetron 4 mg disintegrating 4 mg PO Q8H PRN nausea and 11/14/24 Unknown Rx tablet vomiting 4 days #12 tabs oxycodone 5 mg tablet 5 mg PO Q4H PRN PRN Pain Score 11/14/24 Unknown Rx 4-10 3 days #10 tabs Allergy/AdvReac Type Severity Reaction Status Date / Time red dye Allergy Severe swelling Verified 12/27/24 10:39 carbidopa Allergy Unknown Verified 12/27/24 10:39 gabapentin Allergy Unknown Verified 12/27/24 10:39 latex Allergy Rash Verified 12/27/24 10:39 quetiapine fumarate (From Allergy Other Verified 12/27/24 10:39 Seroquel) topiramate (From Topamax) Allergy Hives Verified 12/27/24 10:39 tramadol HCl (From Ultram) Allergy Other Verified 12/27/24 10:39 amitriptyline AdvReac Vomiting Verified 12/27/24 10:39 aspirin AdvReac Upset Verified 12/27/24 10:39 Stomach cyclobenzaprine HCl (From AdvReac Upset Verified 12/27/24 10:39 Flexeril) Stomach etodolac (Etodolac) AdvReac Vomiting Verified 12/27/24 10:39 hydrocodone bitartrate (From AdvReac Vomiting Verified 12/27/24 10:39 Vicodin) metformin AdvReac Diarrhea Verified 12/27/24 10:39 metoclopramide (From Reglan) AdvReac Other Verified 12/27/24 10:39 naproxen (From Naprosyn) AdvReac Upset Verified 12/27/24 10:39 Stomach propoxyphene napsylate (From AdvReac Vomiting Verified 12/27/24 10:39 Darvocet-N 100) Family History Mother Malignant hyperthermia due to anesthesia Angina pectoris Arthritis Bowel disease Myocardial infarction Heart disease Hypertension High cholesterol CVA (cerebral vascular accident) Father Asthma Arthritis Myocardial infarction Heart disease High cholesterol Hypertension CVA (cerebral vascular accident) Leukemia Diabetes Grandmother Lung cancer Grandfather Diabetes Grandmother Diabetes Surgical History Status post lumbar spinal fusion History of back surgery History of rectal surgery History of colonoscopy History of foot surgery History of nasal polypectomy S/P knee surgery History of total hysterectomy History of cholecystectomy History of partial hysterectomy History of Social History household members: none Smoking Status: Current every day smoker tobacco type: cigarettes Tobacco: How many years used: 46 Electronic Cigarette Use: not used how long ago did patient quit smokin+ pack year smoking history (1.5-2 ppd x 32 years, 3 ppd x 14 years). second hand exposure: Yes quit status: considering quitting alcohol intake: never substance use type: does not use what type of physical activity do you participate in: walking and bicycling ROS ROS ED Constitutional Constitutional ED: Denies chills, fever(s), subjective or sweats Cardiovascular Cardiovascular: Denies chest pain or palpitations Respiratory/Chest Respiratory/Chest: Denies cough, dyspnea or dyspnea on exertion Gastrointestinal Gastrointestinal: Reports abdominal pain; Denies constipation, diarrhea, melena, nausea or vomiting Genitourinary Genitourinary ED: Denies hematuria Psychiatric Psychiatric: Denies anxiety or depression Hematologic/Lymphatic Hematologic/Lymphatic: Reports systems reviewed and no addt'l complaints, except as documented EXAM Physical Exam Const Vital Signs: 12/27/24 10:39 Temperature 98.6 F Temperature Source Oral Pulse Rate 97 Respiratory Rate 16 Blood Pressure 134/96 H Blood Pressure Mean 108 Pulse Ox 96 Oxygen Delivery Method Room Air Positive well nourished and well developed General Appearance ED: well developed and NAD; Negative for cyanotic, diaphoretic or pallor HEENT Reports moist mucous membranes HEENT Narrative: Head is normocephalic and atraumatic. Eyes PERRL and EOMs intact bilaterally General Eye ED: Negative for pale conjunctiva or scleral icterus Neck no lymphadenopathy, supple and no JVD Chest Wall inspection of chest normal and palpation of chest normal Resp normal respiratory effort and clear to auscultation bilaterally Cardio regular rate, regular rhythm, S1 normal heart sound, S2 normal heart sound and no murmurs GI normal to inspection, nondistended, normoactive bowel sounds, non-distended and no masses; Negative for non-tender or hepatosplenomegaly GI Narrative: Patient has pain out of proportion to light touch of the skin. Bowel sounds are present. With distraction she has no discomfort with palpation. Patient has visible external hemorrhoid 12:00 lithotomy position. Inspection: Negative for abdominal distention Auscultation: normoactive bowel sounds Palpation: soft Back/Spine no CVA tenderness Extremity normal to inspection Neuro oriented x3 and CN's II-XII intact bilaterally Sensorium / Orientation: alert Psych Mood & Affect: anxious Skin no rashes or lesions noted, no wounds and skin turgor normal General Skin Exam: elasticity normal; Negative for jaundice or pallor MDM MDM MDM Narrative Medical decision making narrative: History is consistent with rectal bleeding due to hemorrhoids. History is not consistent with colitis. Her abdominal exam is not consistent with a inflammatory or infectious or ischemic colitis. She has pain out of proportion to light touch of her skin. Abdomen is flat. Her vital signs remarkable for slight elevation of blood pressure. Anoscopy was performed with Yeni as margarine maker. Patient was left decubitus position. Visible external hemorrhoid at 12:00 lithotomy position. Patient has evidence of an internal hemorrhoid. There is stool noted in the rectal area and is brown. There is no bright red blood noted. In light of the anoscopy findings and history hematochezia is due to hemorrhoids. Will discharge to home with appropriate home-going instructions. In my professional opinion there is no indication for blood work or further testing. History & Record Review Additional record(s) reviewed:: Prior inpatient record, Prior ED visit and Prior labs Procedures Other Procedures Procedure(s): Anoscopy. Documentation MDM portion of the EMR Discharge Plan Triage Chief Complaint: Abd Pain Other Complaint: GI Bleed ED Provider: Heri Terry Dx/Rx/DC Orders Clinical Impression: Hematochezia, Tobacco dependence, Hyperlipidemia, IBS (irritable bowel syndrome), Type 2 diabetes mellitus, Essential hypertension, External hemorrhoid, Internal hemorrhoid Instructions: ED Hemorrhoids Prescriptions: No Action alprazolam 2 MG tablet 2 mg PO BID PRN (Reason: Anxiety) rosuvastatin 10 mg tablet 10 mg PO QHS baclofen 10 mg tablet 10 mg PO TID PRN (Reason: back pain) hydroxyzine HCl 50 mg tablet 25 - 100 mg PO DAILY PRN (Reason: anxiety) Patient Comments: PT STATES SHE DOESNT TAKE OFTEN omeprazole 20 mg capsule,delayed release(DR/EC) 20 mg PO BID aripiprazole 5 mg tablet 5 mg PO DAILY paroxetine HCl 30 mg tablet 30 mg PO DAILY fluticasone propionate 50 mcg/actuation spray,suspension 2 spray intranasal PRN PRN (Reason: Nasal Congestion) oxycodone 5 mg Tablet 5 mg PO Q4H PRN PRN (Reason: Pain Score 4-10) 3 Days Qty: 10 0RF ondansetron 4 mg tablet,disintegrating 4 mg PO Q8H PRN (Reason: nausea and vomiting) 4 Days Qty: 12 0RF acetaminophen 500 mg Tablet 1,000 mg PO Q8H PRN (Reason: Pain) Qty: 30 0RF (DME) Altera Nebulizer System Misc See Rx Instructions .ROUTE .MEDSUPPLY Qty: 1 3RF Rx Instructions: nebulizer and supplies (DME) blood-glucose meter [OneTouch Verio Flex meter[place] [facility] [place] Instructions .ROUTE .MEDSUPPLY Qty: 1 0RF Rx Instructions: As directed - Check blood sugar daily (DME) Blood Glucose Test Strip See Rx Instructions .ROUTE .MEDSUPPLY Qty: 50 3RF Rx Instructions: use to monitor blood sugar daily for type 2 DM (DME) blood-glucose meter Mis See Rx Instructions .ROUTE .MEDSUPPLY Qty: 1 0RF Rx Instructions: use to monitor blood sugar daily for type 2 DM (DME) lancets 32 gauge misc See Rx Instructions .ROUTE .MEDSUPPLY Qty: 100 3RF Rx Instructions: use to check blood sugar for type 2 DM ipratropium-albuterol 0.5 mg-3 mg(2.5 mg base)/3 mL solution for nebulization 3 ml INHALATION Q8H PRN (Reason: shortness of breath or wheezing) Qty: 90 3RF (DME) OneTouch Verio test strips Strip See Rx Instructions .ROUTE .MEDSUPPLY Qty: 100 3RF Rx Instructions: Check blood sugar daily budesonide-formoterol [Symbicort] 160-4.5 mcg/actuation HFA aerosol inhaler 2 puff INHALATION BID Qty: 10.2 3RF albuterol sulfate [Ventolin HFA] 90 mcg/actuation HFA aerosol inhaler 2 puff INHALATION Q6H PRN (Reason: shortness of breath or wheezing) Qty: 8 3RF Jardiance 25 mg tablet 25 mg PO QAM Qty: 30 0RF Primary Care Provider: Coral Monae NP Referrals: Coral Monae NP, SATELLITE INSTALLATION TECHNICIAN-C [Primary Care Provider] - 3-5 Days if not improving Print Language: Macanese Disposition Disposition: Home, Self Care
--- NOTE | 2024-12-27 12:07 | ED.RN ---
patient irritated states did not even evaluate me, I need something for this pain Dr. Terry informed, Christopher ordered. DC paperwork to be given
[2024-12-27] MEDS: Dicyclomine 10 MG Capsule PO (12:14)
== END 2024-12-27 12:17 | disposition home or self-care (01) ==
PROVIDERS: Emergency Provider Emergency Medicine; PCP Internal Medicine; Referring Provider Emergency Medicine; Visit Provider Emergency Medicine
DX: K92.1 Melena (principal); E11.40 Type 2 diabetes mellitus with diabetic neuropathy, unspecified; K58.9 Irritable bowel syndrome, unspecified; F17.210 Nicotine dependence, cigarettes, uncomplicated; I10 Essential (primary) hypertension; K64.4 Residual hemorrhoidal skin tags; K64.8 Other hemorrhoids; E78.5 Hyperlipidemia, unspecified
CPT/HCPCS: 99282

== ENCOUNTER 2025-01-24 10:06 | Emergency (ER) | payer MEDICAID, SELFPAY ==
[2025-01-24 10:08] VITALS: BP 125/87; PULSE 90; RESP 16; TEMP 36.6; O2SAT 99; BMI 26.6
--- NOTE | 2025-01-24 10:12 | EKG12_ITS ---
Test Reason : SYNCOPE Blood Pressure : */* mmHG Vent. Rate : 98 BPM Atrial Rate : 98 BPM P-R Int : 196 ms QRS Dur : 68 ms QT Int : 366 ms P-R-T Axes : 73 61 71 degrees QTcB Int : 467 ms Normal sinus rhythm Low voltage QRS Borderline ECG Confirmed by Sha Vincent ([id number]), business editor COLBY MACDONALD ([id number]) on 01/26/2025 7:59:46 AM Referred By: LENI/EMELIA Confirmed By: Sha Vincent
--- NOTE | 2025-01-24 10:44 | CT_ITS ---
EXAM: CT Abdomen and Pelvis With Intravenous Contrast CLINICAL INDICATION: TECHNIQUE: Axial computed tomography images of the abdomen and pelvis with intravenous contrast. This CT exam was performed using one or more of the following dose reduction techniques: automated exposure control, adjustment of the mA and/or kV according to patient size, and/or use of iterative reconstruction technique. COMPARISON: No relevant prior studies available. FINDINGS: LUNG BASES: Unremarkable. No mass. No consolidation. ABDOMEN: LIVER: Hepatomegaly with fatty infiltration. GALLBLADDER AND BILE DUCTS: Gallbladder is surgically absent. No ductal dilation. PANCREAS: Unremarkable. No mass. No ductal dilation. SPLEEN: Unremarkable. No splenomegaly. ADRENALS: Unremarkable. No mass. KIDNEYS AND URETERS: Unremarkable. No stones within either kidney. No hydronephrosis. STOMACH AND BOWEL: Unremarkable. No obstruction. No mucosal thickening. PELVIS: APPENDIX: No findings to suggest acute appendicitis. BLADDER: Unremarkable. No mass. REPRODUCTIVE: Unremarkable as visualized. ABDOMEN and PELVIS: INTRAPERITONEAL SPACE: Unremarkable. No free air. No significant fluid collection. BONES/JOINTS: Status post posterior fusion of L3 to L5. Intact hardware. No acute fracture. No dislocation. SOFT TISSUES: Unremarkable. VASCULATURE: Scattered calcified atherosclerotic disease of aorta. No abdominal aortic aneurysm. LYMPH NODES: Unremarkable. No enlarged lymph nodes. CT/Abdomen/Pelvis W IV Cont ONLY IMPRESSION: 1. Hepatomegaly with fatty infiltration. 2. No obstructive uropathy. Reading Location[facility]
--- NOTE | 2025-01-24 10:44 | RAD_ITS ---
EXAM: XR Chest, 1 View CLINICAL INDICATION: TECHNIQUE: Frontal view of the chest. COMPARISON: No relevant prior studies available. FINDINGS: LUNGS AND PLEURAL SPACES: Bibasilar atelectasis or pneumonia. No pneumothorax. HEART: Unremarkable. No cardiomegaly. MEDIASTINUM: Unremarkable. Normal mediastinal contour. BONES/JOINTS: Unremarkable. No acute fracture. RAD/Chest 1 View (Portable) IMPRESSION: Bibasilar atelectasis or pneumonia. Reading [facility]
--- NOTE | 2025-01-24 10:49 | EX.ED.DYSGE1 ---
HPI History of Present Illness Chief Complaint: Abd Pain Informant: patient and family Narrative Narrative: 59-year-old female presenting to the emergency room with syncope back pain and abdominal pain. Patient states the family came home last week ill with what sounds like influenza. 2 days later she developed fever runny nose cough sore throat. She improved but then developed vomiting and diarrhea. This morning she had diarrhea on the toilet when stood up and had a syncopal episode. When she came to she was vomiting. She states that in the process she must of injured her back as she has some low back discomfort particular on the left. She notes some right sided abdominal discomfort but is pointing to the left lower side. She notes it comes and goes. She was admitted into the hospital in October with diarrhea was found to have a Campylobacter infection. [facility] Medical History Intractable migraine Spondylolisthesis, lumbar region Wears glasses Anxiety Bipolar disorder Marijuana use Diabetes Arthritis High cholesterol Excessive bleeding Restless legs Back pain Urinary incontinence Flu vaccine need Easy bruising Back pain Essential hypertension Chronic back pain Grief Encounter for screening for malignant neoplasm of lung in current smoker with 30 pack year history or greater Cough Acute exacerbation of chronic low back pain GERD (gastroesophageal reflux disease) Abnormal EKG Panic attack Anxiety and depression Head injury Fall Concussion Muscle spasm Chronic radicular lumbar pain Type 2 diabetes mellitus Post concussion syndrome Vision problems Neuropathy IBS (irritable bowel syndrome) Hyperlipidemia Chronic headaches Hx of emotional problems Carpal tunnel syndrome Asthma Seasonal allergies Home Medications ?Medication ?Instructions ?Recorded ?Last Taken ?Type alprazolam 2 mg tablet 2 mg PO BID PRN Anxiety 03/24/19 01/04/24 History nebulizers (Altera Nebulizer #1 ea 09/06/20 Unknown Rx System) blood-glucose meter (OneTouch #1 ea 11/27/21 Unknown Rx Verio Flex Meter) blood sugar diagnostic (Blood #50 ea 11/28/21 Unknown Rx Glucose Test strips) blood-glucose meter #1 ea 11/28/21 Unknown Rx lancets 32 gauge #100 ea 11/28/21 Unknown Rx ipratropium 0.5 mg-albuterol 3 mg 3 ml inhalation Q8H PRN shortness 07/22/22 01/05/24 Rx (2.5 mg base)/3 mL nebulization of breath or wheezing #90 mL soln blood sugar diagnostic (OneTouch #100 ea 08/28/22 Unknown Rx Verio test strips) budesonide-formoterol HFA 160 2 puff inhalation BID ASTHMA #10.2 11/04/22 11/11/24 Rx mcg-4.5 mcg/actuation aerosol grams inhaler (Symbicort) Ventolin HFA 90 mcg/actuation 2 puff inhalation Q6H PRN 12/09/22 01/04/24 Rx aerosol inhaler (albuterol sulfate) shortness of breath or wheezing #8 grams empagliflozin 25 mg tablet 25 mg PO QAM DM #30 tabs 08/25/23 11/11/24 Rx (Jardiance) rosuvastatin 10 mg tablet 10 mg PO QHS HLD 12/22/23 11/10/24 History baclofen 10 mg tablet 10 mg PO TID PRN back pain 06/21/24 Unknown History aripiprazole 5 mg tablet 5 mg PO DAILY 11/11/24 11/11/24 History fluticasone propionate 50 2 spray intranasal PRN PRN Nasal 11/11/24 11/11/24 History mcg/actuation nasal Congestion spray,suspension hydroxyzine HCl 50 mg tablet 25 - 100 mg PO DAILY PRN anxiety 11/11/24 Unknown History omeprazole 20 mg capsule,delayed 20 mg PO BID 11/11/24 11/11/24 History release paroxetine HCl 30 mg tablet 30 mg PO DAILY 11/11/24 11/11/24 History acetaminophen 500 mg tablet 1,000 mg (2 x 500 mg) PO Q8H PRN 11/14/24 Unknown Rx Pain #30 tabs ondansetron 4 mg disintegrating 4 mg PO Q8H PRN nausea and 11/14/24 Unknown Rx tablet vomiting 4 days #12 tabs oxycodone 5 mg tablet 5 mg PO Q4H PRN PRN Pain Score 11/14/24 Unknown Rx 4-10 3 days #10 tabs dicyclomine 20 mg tablet 20 mg PO TID PRN abdominal pain 01/24/25 Unknown Rx #30 tabs ondansetron 4 mg disintegrating 4 mg PO Q6H PRN PRN Nausea #15 tabs 01/24/25 Unknown Rx tablet Allergy/AdvReac Type Severity Reaction Status Date / Time red dye Allergy Severe swelling Verified 01/24/25 10:13 carbidopa Allergy Unknown Verified 01/24/25 10:13 gabapentin Allergy Unknown Verified 01/24/25 10:13 latex Allergy Rash Verified 01/24/25 10:13 quetiapine fumarate (From Allergy Other Verified 01/24/25 10:13 Seroquel) topiramate (From Topamax) Allergy Hives Verified 01/24/25 10:13 tramadol HCl (From Ultram) Allergy Other Verified 01/24/25 10:13 amitriptyline AdvReac Vomiting Verified 01/24/25 10:13 aspirin AdvReac Upset Verified 01/24/25 10:13 Stomach cyclobenzaprine HCl (From AdvReac Upset Verified 01/24/25 10:13 Flexeril) Stomach etodolac (Etodolac) AdvReac Vomiting Verified 01/24/25 10:13 hydrocodone bitartrate (From AdvReac Vomiting Verified 01/24/25 10:13 Vicodin) metformin AdvReac Diarrhea Verified 01/24/25 10:13 metoclopramide (From Reglan) AdvReac Other Verified 01/24/25 10:13 naproxen (From Naprosyn) AdvReac Upset Verified 01/24/25 10:13 Stomach propoxyphene napsylate (From AdvReac Vomiting Verified 01/24/25 10:13 Darvocet-N 100) Family History Mother Malignant hyperthermia due to anesthesia Angina pectoris Arthritis Bowel disease Myocardial infarction Heart disease Hypertension High cholesterol CVA (cerebral vascular accident) Father Asthma Arthritis Myocardial infarction Heart disease High cholesterol Hypertension CVA (cerebral vascular accident) Leukemia Diabetes Grandmother Lung cancer Grandfather Diabetes Grandmother Diabetes Surgical History Status post lumbar spinal fusion History of back surgery History of rectal surgery History of colonoscopy History of foot surgery History of nasal polypectomy S/P knee surgery History of total hysterectomy History of cholecystectomy History of partial hysterectomy History of Social History household members: none Smoking Status: Current every day smoker tobacco type: cigarettes Tobacco: How many years used: 46 Electronic Cigarette Use: not used how long ago did patient quit smokin+ pack year smoking history (1.5-2 ppd x 32 years, 3 ppd x 14 years). second hand exposure: Yes quit status: considering quitting alcohol intake: never substance use type: does not use what type of physical activity do you participate in: walking and bicycling ROS ROS ED Constitutional Constitutional ED: Reports chills, fever(s) and sweats; Denies weight loss Eyes Eyes: Denies change in vision or diplopia ENT ENT ED: Reports rhinorrhea; Denies ear pain or sore throat Cardiovascular Cardiovascular: Reports other Details: Syncope ; Denies chest pain, orthopnea, palpitations or racing heartbeat Respiratory/Chest Respiratory/Chest: Reports cough; Denies dyspnea or orthopnea Gastrointestinal Gastrointestinal: Reports abdominal pain, diarrhea, nausea and vomiting Genitourinary Genitourinary ED: Denies dysuria, hematuria or urinary frequency Musculoskeletal Musculoskeletal: Reports back pain; Denies arthralgias or myalgias Integumentary Denies abscess or rash Neurologic Neurologic: Denies headache(s) or weakness Psychiatric Psychiatric: Denies anxiety, depression, suicidal ideation or suicidal thoughts Endocrine Endocrinology: Denies polydipsia, polyphagia or polyuria Allergic/Immunologic Allergic/Immunologic ED: Denies mouth swelling, tongue swelling or urticaria EXAM Physical Exam Const Vital Signs: 01/24/25 10:08 01/24/25 10:15 01/24/25 12:15 Temperature 98 F Temperature Source Oral Pulse Rate 90 91 Respiratory Rate 16 17 Respiratory Effort Normal Respiratory Pattern Normal Blood Pressure 125/87 H 130/88 H Blood Pressure Mean 99 102 Pulse Ox 99 93 Oxygen Delivery Method Room Air Room Air 01/24/25 12:50 Temperature 98.4 F Temperature Source Pulse Rate 78 Respiratory Rate 15 Respiratory Effort Respiratory Pattern Blood Pressure 110/67 Blood Pressure Mean 81 Pulse Ox 96 Oxygen Delivery Method Positive well nourished and well developed General Appearance ED: well developed HEENT Reports normocephalic, head/scalp atraumatic and moist mucous membranes Eyes PERRL and EOMs intact bilaterally Neck no lymphadenopathy, supple and no JVD Resp normal respiratory effort and clear to auscultation bilaterally Cardio regular rate, regular rhythm and no murmurs GI GI Narrative: Mild diffuse tenderness to palpation. No involuntary guarding or rebound is noted Auscultation: normoactive bowel sounds Palpation: soft Back/Spine no CVA tenderness Back/Spine Narrative: Painful range of motion. Patient has mild tenderness in the paraspinal musculature of the lumbar spine left greater than right Extremity normal to inspection General Extremety ED: Negative for edema General Extremity: Negative for edema Neuro oriented x3 and CN's II-XII intact bilaterally Sensorium / Orientation: alert Motor Exam: strength 5/5 throughout Psych mental status grossly normal Mood & Affect: Negative for depressed or tearful Skin no rashes or lesions noted and no wounds MDM MDM MDM Narrative Medical decision making narrative: Differential diagnosis includes but not limited to vasovagal syncope hypovolemic syncope electrolyte abnormality dehydration gastroenteritis colitis diverticulitis lumbar fracture lumbar myofascial strain Basic blood work was fairly unremarkable including lipase liver enzymes BMP and a CBC. White count is 8.[address] then pelvis demonstrates no acute trauma or inflammatory condition. Patient's EKG is in normal sinus rhythm. The patient received IV fluids Toradol morphine Zofran and later Bentyl. I believe the patient can be discharged home. I believe she most likely sustained a vasovagal episode and has a viral gastroenteritis. I can write for Bentyl and Zofran as an outpatient. Return if worsening or concerns History & Record Review Discussion w/independent historian: Patient Lab Data Attestation: I reviewed the patient's lab results. Labs: Laboratory Results - last 24 hr 01/24/25 10:10 WBC 8.6 RBC 5.37 Hgb 15.8 H Hct 48.1 H MCV 89.6 MCH 29.4 MCHC 32.8 RDW Std Deviation 46.6 H RDW Coeff of [place] 14.3 Plt Count 295 MPV 9.3 Immature Gran % (Auto) 0.700 Neut % (Auto) 57.1 Lymph % (Auto) 35.5 [place] % (Auto) 5.4 Eos % (Auto) 0.8 Baso % (Auto) 0.5 Absolute Neuts (auto) 4.9 Absolute Lymphs (auto) 3.04 Nucleated RBC % 0 Sodium 140 Potassium 3.9 Chloride 106 Carbon Dioxide 27.0 Anion Gap 8 BUN 13 Creatinine 0.66 Estim Creat Clear Calc 83.97 Est GFR (MDRD) Af Amer 118 Est GFR (MDRD) Non-Af 98 BUN/Creatinine Ratio 19.8 Glucose 183 H Calcium 9.1 Total Bilirubin 0.30 Direct Bilirubin 0.09 AST 19 ALT 26 Alkaline Phosphatase 154 H Total Protein 7.5 Albumin 3.6 Globulin 3.9 Lipase 39 L Radiography Diagnostic Testing: Clinical Impression(s) from Imaging Studies Abdomen/Pelvis CT 01/24/25 10:44 IMPRESSION: 1. Hepatomegaly with fatty infiltration. 2. No obstructive uropathy. Reading Location: [facility] Chest X-Ray 01/24/25 10:44 IMPRESSION: Bibasilar atelectasis or pneumonia. Reading Location: [facility] EKG Initial EKG: Attestation: I personally reviewed and interpreted this EKG as follows: Comments: Normal sinus rhythm ventricular rate of 98 bpm Discharge Plan Triage Chief Complaint: Abd Pain Other Complaint: Syncope ED Provider: Sabas Pierre Dx/Rx/DC Orders Clinical Impression: Syncope, Gastroenteritis, Abdominal pain, Acute lumbar myofascial strain Instructions: Viral Gastroenteritis, ED Fainting, Vagal Reaction Prescriptions: New dicyclomine 20 mg tablet 20 mg PO TID PRN (Reason: abdominal pain) Qty: 30 0RF ondansetron 4 mg tablet,disintegrating 4 mg PO Q6H PRN PRN (Reason: Nausea) Qty: 15 0RF No Action alprazolam 2 MG tablet 2 mg PO BID PRN (Reason: Anxiety) rosuvastatin 10 mg tablet 10 mg PO QHS baclofen 10 mg tablet 10 mg PO TID PRN (Reason: back pain) hydroxyzine HCl 50 mg tablet 25 - 100 mg PO DAILY PRN (Reason: anxiety) Patient Comments: PT STATES SHE DOESNT TAKE OFTEN omeprazole 20 mg capsule,delayed release(DR/EC) 20 mg PO BID aripiprazole 5 mg tablet 5 mg PO DAILY paroxetine HCl 30 mg tablet 30 mg PO DAILY fluticasone propionate 50 mcg/actuation spray,suspension 2 spray intranasal PRN PRN (Reason: Nasal Congestion) oxycodone 5 mg Tablet 5 mg PO Q4H PRN PRN (Reason: Pain Score 4-10) 3 Days Qty: 10 0RF ondansetron 4 mg tablet,disintegrating 4 mg PO Q8H PRN (Reason: nausea and vomiting) 4 Days Qty: 12 0RF acetaminophen 500 mg Tablet 1,000 mg PO Q8H PRN (Reason: Pain) Qty: 30 0RF (DME) Altera Nebulizer System Misc See Rx Instructions .ROUTE .MEDSUPPLY Qty: 1 3RF Rx Instructions: nebulizer and supplies (DME) blood-glucose meter [OneTouch Verio Flex meter] Mis See Rx Instructions .ROUTE .MEDSUPPLY Qty: 1 0RF Rx Instructions: As directed - Check blood sugar daily (DME) Blood Glucose Test Strip See Rx Instructions .ROUTE .MEDSUPPLY Qty: 50 3RF Rx Instructions: use to monitor blood sugar daily for type 2 DM (DME) blood-glucose meter Mis See Rx Instructions .ROUTE .MEDSUPPLY Qty: 1 0RF Rx Instructions: use to monitor blood sugar daily for type 2 DM (DME) lancets 32 gauge misc See Rx Instructions .ROUTE .MEDSUPPLY Qty: 100 3RF Rx Instructions: use to check blood sugar for type 2 DM ipratropium-albuterol 0.5 mg-3 mg(2.5 mg base)/3 mL solution for nebulization 3 ml INHALATION Q8H PRN (Reason: shortness of breath or wheezing) Qty: 90 3RF (DME) OneTouch Verio test strips Strip See Rx Instructions .ROUTE .MEDSUPPLY Qty: 100 3RF Rx Instructions: Check blood sugar daily budesonide-formoterol [Symbicort] 160-4.5 mcg/actuation HFA aerosol inhaler 2 puff INHALATION BID Qty: 10.2 3RF albuterol sulfate [Ventolin HFA] 90 mcg/actuation HFA aerosol inhaler 2 puff INHALATION Q6H PRN (Reason: shortness of breath or wheezing) Qty: 8 3RF Jardiance 25 mg tablet 25 mg PO QAM Qty: 30 0RF Primary Care Provider: Coral Monae NP Referrals: Coral Monae NP, [employer] [Primary Care Provider] - As Needed Print Language: Tongan Disposition Disposition: Home, Self Care Discharge Date/Time: 01/24/25 12:52
[2025-01-24] MEDS: Ondansetron 4 MG/2 ML Vial IV (10:53)
[2025-01-24] MEDS: 0.9% Normal Saline (1000mL) 1,000 ML 1000 ML IV (10:54)
[2025-01-24] MEDS: Ketorolac 30 MG/ML Syringe IV (10:54)
[2025-01-24 10:56] LABS: Absolute Lymphocyte Count 3.04 X10^3/uL (0.83-4.51); Absolute Neutrophil Count 4.9 X10^3/uL (2.0-7.7); Basophil# 0.04 X10^3/uL; Basophil% 0.5 % (0-1); Eosinophil# 0.07 X10^3/uL; Eosinophils% 0.8 % (0-5); Hematocrit 48.1 % (37-47); Hemoglobin 15.8 g/dL (12.0-15.0); Lymphocyte # 3.04 X10^3/ul (0.83-4.51); Lymphocyte % 35.5 % (19-41); Mean Corp Hgb Conc 32.8 g/dL (32-36); Mean Corpuscular Hgb 29.4 pg (27.0-32.0); Mean Corpuscular Volume 89.6 fL (81-99); Mean Platelet Vol. 9.3 fl (6.2-12.0); Monocyte# 0.46 X10^3/uL; Monocyte% 5.4 % (0-10); NRBC Flagged by Analyzer 0 % (0-5); Neutrophil # 4.89 X10^3/uL (2.7-7.7); Neutrophil % 57.1 % (47-70); Platelet Count 295 K/mm3 (150-450); RBC Distribution Width CV 14.3 % (11.6-14.6); RBC Distribution Width SD 46.6 fl (35.1-43.9); Red Blood Count 5.37 M/mm3 (4.2-5.4); White Blood Count 8.6 K/mm3 (4.4-11.0)
[2025-01-24 11:09] LABS: AST(SGOT) 19 U/L (15-37); Alanine Aminotransfer ALT/SGPT 26 U/L (13-56); Albumin, Serum 3.6 g/dL (3.2-5.0); Alkaline Phosphatase 154 U/L (45-117); Anion Gap 8 (5-15); BUN 13 mg/dL (7-18); BUN/Creat Ratio 19.8 RATIO (10-20); Bilirubin, Direct 0.09 mg/dL (0.00-0.30); Calcium,Total 9.1 mg/dL (8.5-10.1); Chloride 106 mmol/L (98-107); Creatinine, Serum 0.66 mg/dL (0.55-1.02); EST Glomerular Filtration Rate 98 mL/min (>60); Est Glom Filt Rate - Afr Amer 118 mL/min (>60); Estimated Creatinine Clearance 83.97 ml/min; Globulin 3.9 g/dL (2.2-4.2); Glucose 183 mg/dL (74-106); Lipase 39 U/L (73-393); Potassium 3.9 mmol/L (3.5-5.1); Protein, Total 7.5 g/dL (6.4-8.2); Sodium Level 140 mmol/L (136-145)
[2025-01-24] MEDS: Morphine 4 MG/ML Syringe IV (11:11)
[2025-01-24 12:15] VITALS: BP 130/88; PULSE 91; RESP 17; O2SAT 93
[2025-01-24] MEDS: Dicyclomine 10 MG Capsule 20 MG PO (12:45)
[2025-01-24 12:50] VITALS: BP 110/67; PULSE 78; RESP 15; TEMP 36.9; O2SAT 96
== END 2025-01-24 12:52 | disposition home or self-care (01) ==
PROVIDERS: Emergency Provider Emergency Medicine; PCP Internal Medicine; Visit Provider Emergency Medicine
DX: R55 Syncope and collapse (principal); F31.9 Bipolar disorder, unspecified; E11.40 Type 2 diabetes mellitus with diabetic neuropathy, unspecified; S39.012A Strain of muscle, fascia and tendon of lower back, initial encounter; X58.XXXA Exposure to other specified factors, initial encounter; K52.9 Noninfective gastroenteritis and colitis, unspecified; F41.9 Anxiety disorder, unspecified; I10 Essential (primary) hypertension; K21.9 Gastro-esophageal reflux disease without esophagitis; E78.00 Pure hypercholesterolemia, unspecified; G89.29 Other chronic pain; J45.909 Unspecified asthma, uncomplicated; F17.210 Nicotine dependence, cigarettes, uncomplicated; Z79.84 Long term (current) use of oral hypoglycemic drugs; Z79.899 Other long term (current) drug therapy
CPT/HCPCS: 71045; 74177; 80048; 80076; 83690; 85025; 93005; 96361; 96374; 96375; 99285; Q9967; J2405

== ENCOUNTER 2025-05-04 13:07 | Emergency (ER) | payer MEDICAID, SELFPAY ==
[2025-05-04 13:10] VITALS: BP 120/99; PULSE 112; RESP 18; TEMP 36.8; O2SAT 97; BMI 25.9
--- NOTE | 2025-05-04 13:15 | EKG12_ITS ---
Test Reason : DIZZINESS Blood Pressure : */* mmHG Vent. Rate : 90 BPM Atrial Rate : 90 BPM P-R Int : 192 ms QRS Dur : 56 ms QT Int : 392 ms P-R-T Axes : 74 53 61 degrees QTcB Int : 479 ms Normal sinus rhythm Septal infarct , age undetermined Abnormal ECG Confirmed by ELIN ADLER, PETER ([id number]), editorial manager COLBY MACDONALD ([id number]) on 05/09/2025 6:11:24 AM Referred By: TB Confirmed By: PETER WORTHINGTON MD
--- NOTE | 2025-05-04 13:15 | RAD_ITS ---
PROCEDURE: CHEST 1 VIEW (PORTABLE) N/A REASON FOR EXAM: CHEST PAIN TECHNIQUE: Frontal view of the chest. COMPARISON: 01/24/25 FINDINGS: No focal consolidations. No pleural effusion or pneumothorax. No acute fractures. Cardiac silhouette is unchanged. Atherosclerotic aortic arch. RAD/Chest 1 View (Portable) IMPRESSION: No focal consolidations. No pleural effusion or pneumothorax. Reading Location: [id number]
[2025-05-04 13:39] LABS: Absolute Lymphocyte Count 4.35 X10^3/uL (0.83-4.51); Absolute Neutrophil Count 4.6 X10^3/uL (2.0-7.7); Basophil# 0.04 X10^3/uL; Basophil% 0.4 % (0-1); Eosinophil# 0.11 X10^3/uL; Eosinophils% 1.1 % (0-5); Hematocrit 45.6 % (37-47); Hemoglobin 15.4 g/dL (12.0-15.0); Lymphocyte # 4.35 X10^3/ul (0.83-4.51); Lymphocyte % 45.3 % (19-41); Mean Corp Hgb Conc 33.8 g/dL (32-36); Mean Corpuscular Hgb 29.7 pg (27.0-32.0); Mean Corpuscular Volume 87.9 fL (81-99); Mean Platelet Vol. 9.2 fl (6.2-12.0); Monocyte# 0.52 X10^3/uL; Monocyte% 5.4 % (0-10); NRBC Flagged by Analyzer 0 % (0-5); Neutrophil # 4.55 X10^3/uL (2.7-7.7); Neutrophil % 47.4 % (47-70); Platelet Count 312 K/mm3 (150-450); RBC Distribution Width CV 14.7 % (11.6-14.6); RBC Distribution Width SD 47.8 fl (35.1-43.9); Red Blood Count 5.19 M/mm3 (4.2-5.4); White Blood Count 9.6 K/mm3 (4.4-11.0)
[2025-05-04 13:56] LABS: Troponin T High Sensitivity < 6 ng/L (<=14)
[2025-05-04 13:57] LABS: Anion Gap 13 (5-15); BUN 14 mg/dL (4-19); BUN/Creat Ratio 21.2 RATIO (10-20); Calcium,Total 9.3 mg/dL (7.6-11.0); Carbon Dioxide 22.8 mmol/L (21.0-32.0); Chloride 104 mmol/L (98-108); Creatinine, Serum 0.66 mg/dL (0.70-1.20); EST Glomerular Filtration Rate 100 (>60); Estimated Creatinine Clearance 83.62 ml/min (50-250); Glucose 152 mg/dL (70-99); Potassium 4.6 mmol/L (3.3-5.1); Sodium Level 139 mmol/L (133-145)
--- NOTE | 2025-05-04 14:26 | CT_ITS ---
PROCEDURE: STROKE CTA HEAD AND NECK W/CON 05/04/2025 REASON FOR EXAM: HEADACHE TECHNIQUE: CTA imaging of the head and neck from the aortic arch to the skull vertex with out contrast and with intravenous contrast. Multiplanar and multisequence images were obtained. CONTRAST: 100ml of Isovue 370 One or more dose reduction techniques were used (e.g., Automated exposure control, adjustment of the mA and/or kV according to patient size, use of iterative reconstruction technique). RADIATION DOSE SUMMARY: DLP: 1451 mGycm COMPARISON: None FINDINGS: The aortic arch demonstrates a type I configuration. The ostia of the great vessels are patent. There is conventional branching. The right CCA is patent. There is no significant stenosis of the right carotid bifurcation by NASCET criteria although there is mild atherosclerotic plaque. The cervical right ICA is patent with moderate atherosclerosis of the carotid siphon without significant stenosis. The right MCA and right MAURICIO appear patent but there is minimal narrowing of the proximal right MCA without significant stenosis. There is no large vessel occlusion. The left CCA is patent. There is no significant stenoses at the left carotid bifurcation by NASCET criteria although there is mild atherosclerotic plaque. The cervical left ICA is patent with moderate atherosclerosis of the carotid siphon without significant stenosis. . The left MCA and left MAURICIO appear patent. There is no large vessel occlusion. The right vertebral artery arises from the right subclavian artery. The left vertebral artery arises from the left subclavian artery. Both vertebral arteries are patent. Both vertebral arteries join to form the patent basilar artery. Both posterior cerebral arteries arise from the tip of the basilar. Both proximal BRUSHER TENDER segments are patent. There is no large vessel occlusion. There is no enhancing intracranial mass. Shotty cervical lymph nodes are identified. Heterogenous right thyroid gland with nodules measuring up to 7 mm. The lung apices demonstrate no pneumothorax. No destructive osseous abnormalities identified. [id number] multilevel degenerative changes of the cervical spine. CT/STROKE CTA Head AND Neck W/Con IMPRESSION: No acute large vessel occlusion or high-grade stenosis. Minimal narrowing of t he proximal right MCA without significant stenosis. Reading Location: [id number]
--- NOTE | 2025-05-04 14:26 | EKG12_ITS ---
Test Reason : CP Blood Pressure : */* mmHG Vent. Rate : 103 BPM Atrial Rate : 103 BPM P-R Int : 164 ms QRS Dur : 76 ms QT Int : 368 ms P-R-T Axes : 69 68 62 degrees QTcB Int : 482 ms Sinus tachycardia QTcB >= 480 msec Abnormal ECG Confirmed by ELIN ADLER, PETER ([id number]), acquisitions editor COLBY MACDONALD ([id number]) on 05/09/2025 6:11:36 AM Referred By: UG/BB Confirmed By: PETER WORTHINGTON MD
--- NOTE | 2025-05-04 14:29 | EX.ED.DYSGE1 ---
HPI History of Present Illness Chief Complaint: General Illness Narrative Narrative: Patient is a 59-year-old female past medical history of intractable migraines, anxiety, marijuana use, bipolar, hypercholesteremia, GERD, type 2 diabetes, asthma who presents to the emergency department chief complaint of headache that has been going on for approximately a week cough, congestion, not feeling well. She states that she tried tyxm-kei-kmonvva medications including lidocaine patch in the back of her neck. States that this does feel like one of her migraines that she has had in the past but states that she has not had one in a significant mount time. She denies head trauma or injuries. Patient denies any blood thinning medications. Patient in the triage note states that she has dizziness after further clarification with the patient she is not dizzy she is lightheaded. Patient denies any sick contacts. Patient is concerned that this may be related to her sugar. She states that her sugar has been running high on and off for the last several days. [facility] Medical History Intractable migraine Spondylolisthesis, lumbar region Wears glasses Anxiety Bipolar disorder Marijuana use Diabetes Arthritis High cholesterol Excessive bleeding Restless legs Back pain Urinary incontinence Flu vaccine need Easy bruising Back pain Essential hypertension Chronic back pain Grief Encounter for screening for malignant neoplasm of lung in current smoker with 30 pack year history or greater Cough Acute exacerbation of chronic low back pain GERD (gastroesophageal reflux disease) Abnormal EKG Panic attack Anxiety and depression Head injury Fall Concussion Muscle spasm Chronic radicular lumbar pain Type 2 diabetes mellitus Post concussion syndrome Vision problems Neuropathy IBS (irritable bowel syndrome) Hyperlipidemia Chronic headaches Hx of emotional problems Carpal tunnel syndrome Asthma Seasonal allergies Home Medications ?Medication ?Instructions ?Recorded ?Last Taken ?Type alprazolam 2 mg tablet 2 mg PO BID PRN Anxiety 03/24/19 01/04/24 History nebulizers (Altera Nebulizer #1 ea 09/06/20 Unknown Rx System) blood-glucose meter (OneTouch #1 ea 11/27/21 Unknown Rx Verio Flex Meter) blood sugar diagnostic (Blood #50 ea 11/28/21 Unknown Rx Glucose Test strips) blood-glucose meter #1 ea 11/28/21 Unknown Rx lancets 32 gauge #100 ea 11/28/21 Unknown Rx ipratropium 0.5 mg-albuterol 3 mg 3 ml inhalation Q8H PRN shortness 07/22/22 01/05/24 Rx (2.5 mg base)/3 mL nebulization of breath or wheezing #90 mL soln blood sugar diagnostic (OneTouch #100 ea 08/28/22 Unknown Rx Verio test strips) budesonide-formoterol HFA 160 2 puff inhalation BID ASTHMA #10.2 11/04/22 11/11/24 Rx mcg-4.5 mcg/actuation aerosol grams inhaler (Symbicort) Ventolin HFA 90 mcg/actuation 2 puff inhalation Q6H PRN 12/09/22 01/04/24 Rx aerosol inhaler (albuterol sulfate) shortness of breath or wheezing #8 grams empagliflozin 25 mg tablet 25 mg PO QAM DM #30 tabs 08/25/23 11/11/24 Rx (Jardiance) rosuvastatin 10 mg tablet 10 mg PO QHS HLD 12/22/23 11/10/24 History baclofen 10 mg tablet 10 mg PO TID PRN back pain 06/21/24 Unknown History aripiprazole 5 mg tablet 5 mg PO DAILY 11/11/24 11/11/24 History fluticasone propionate 50 2 spray intranasal PRN PRN Nasal 11/11/24 11/11/24 History mcg/actuation nasal Congestion spray,suspension hydroxyzine HCl 50 mg tablet 25 - 100 mg PO DAILY PRN anxiety 11/11/24 Unknown History omeprazole 20 mg capsule,delayed 20 mg PO BID 11/11/24 11/11/24 History release paroxetine HCl 30 mg tablet 30 mg PO DAILY 11/11/24 11/11/24 History acetaminophen 500 mg tablet 1,000 mg (2 x 500 mg) PO Q8H PRN 11/14/24 Unknown Rx Pain #30 tabs ondansetron 4 mg disintegrating 4 mg PO Q8H PRN nausea and 11/14/24 Unknown Rx tablet vomiting 4 days #12 tabs oxycodone 5 mg tablet 5 mg PO Q4H PRN PRN Pain Score 11/14/24 Unknown Rx 4-10 3 days #10 tabs dicyclomine 20 mg tablet 20 mg PO TID PRN abdominal pain 01/24/25 Unknown Rx #30 tabs ondansetron 4 mg disintegrating 4 mg PO Q6H PRN PRN Nausea #15 tabs 01/24/25 Unknown Rx tablet ondansetron 4 mg disintegrating 4 mg PO Q6H PRN nausea and 05/04/25 Unknown Rx tablet vomiting #14 tabs Allergy/AdvReac Type Severity Reaction Status Date / Time red dye Allergy Severe swelling Verified 05/04/25 13:10 carbidopa Allergy Unknown Verified 05/04/25 13:10 gabapentin Allergy Unknown Verified 05/04/25 13:10 latex Allergy Rash Verified 05/04/25 13:10 quetiapine fumarate (From Allergy Other Verified 05/04/25 13:10 Seroquel) topiramate (From Topamax) Allergy Hives Verified 05/04/25 13:10 tramadol HCl (From Ultram) Allergy Other Verified 05/04/25 13:10 amitriptyline AdvReac Vomiting Verified 05/04/25 13:10 aspirin AdvReac Upset Verified 05/04/25 13:10 Stomach cyclobenzaprine HCl (From AdvReac Upset Verified 05/04/25 13:10 Flexeril) Stomach etodolac (Etodolac) AdvReac Vomiting Verified 05/04/25 13:10 hydrocodone bitartrate (From AdvReac Vomiting Verified 05/04/25 13:10 Vicodin) metformin AdvReac Diarrhea Verified 05/04/25 13:10 metoclopramide (From Reglan) AdvReac Other Verified 05/04/25 13:10 naproxen (From Naprosyn) AdvReac Upset Verified 05/04/25 13:10 Stomach propoxyphene napsylate (From AdvReac Vomiting Verified 05/04/25 13:10 Darvocet-N 100) Family History Mother Malignant hyperthermia due to anesthesia Angina pectoris Arthritis Bowel disease Myocardial infarction Heart disease Hypertension High cholesterol CVA (cerebral vascular accident) Father Asthma Arthritis Myocardial infarction Heart disease High cholesterol Hypertension CVA (cerebral vascular accident) Leukemia Diabetes Grandmother Lung cancer Grandfather Diabetes Grandmother Diabetes Surgical History Status post lumbar spinal fusion History of back surgery History of rectal surgery History of colonoscopy History of foot surgery History of nasal polypectomy S/P knee surgery History of total hysterectomy History of cholecystectomy History of partial hysterectomy History of Social History household members: none Smoking Status: Current every day smoker tobacco type: cigarettes Tobacco: How many years used: 46 Electronic Cigarette Use: not used how long ago did patient quit smokin+ pack year smoking history (1.5-2 ppd x 32 years, 3 ppd x 14 years). second hand exposure: Yes quit status: considering quitting alcohol intake: never substance use type: does not use what type of physical activity do you participate in: walking and bicycling ROS ROS ED ROS Narrative Constitutional: Complains of headache as noted above as well as lightheadedness denies any fevers, chills, dizziness Eyes: Denies change in vision double vision blurry vision Cardiovascular: Denies chest pain despite what is stated in the triage note or palpitations Respiratory: Denies coughing wheezing shortness of breath Abdomen: Denies abdominal pain nausea vomit diarrhea : Denies urinary symptoms Neurological: Denies numbness, wheeze, tingling Musculoskeletal: Denies back pain Skin: Denies rashes or lesions EXAM Physical Exam Narrative Exam Narrative: General: Patient lying in bed rest comfortably not appear to be acute distress Head: Atraumatic, normocephalic Eyes: PERRL bilaterally, EOMI bilaterally, no conjunctival injection noted Neck: Soft, supple, trachea midline Cardiovascular: Patient tachycardic with a regular rhythm Respiratory: Clear to auscultation bilaterally Abdomen: Soft, nondistended, nontender to palpation Extremities: +5/5 strength noted in the bilateral upper and lower extremities, radial pulse +2/4 in the bilateral extremities, Neurological: Patient following commands knew that she was at [facility] year is 2024, NIH of 0 GCS 15 Skin: Warm, dry, tact no rashes or lesions noted Const Vital Signs: 05/04/25 13:10 05/04/25 13:15 05/04/25 14:23 Temperature 98.2 F Temperature Source Oral Pulse Rate 112 H Respiratory Rate 18 Respiratory Effort Normal Respiratory Pattern Normal Blood Pressure 120/99 H Blood Pressure Mean 106 Pulse Ox 97 Oxygen Delivery Method Room Air Room Air 05/04/25 14:26 05/04/25 15:29 05/04/25 17:00 Temperature Temperature Source Pulse Rate 93 80 Respiratory Rate 14 16 Respiratory Effort Respiratory Pattern Blood Pressure 130/94 H 132/87 H Blood Pressure Mean 106 102 Pulse Ox 96 98 Oxygen Delivery Method Room Air Room Air 05/04/25 17:41 Temperature Temperature Source Pulse Rate 67 Respiratory Rate 18 Respiratory Effort Respiratory Pattern Blood Pressure 117/78 Blood Pressure Mean 91 Pulse Ox 98 Oxygen Delivery Method MDM MDM MDM Narrative Medical decision making narrative: Patient is a 59-year-old female who presents to the emerged part with chief complaint of headache, lightheadedness, not feeling well for the last week. On the differential diagnosis includes but not limited to upper respiratory infection secondary viral etiology, pneumonia, ACS, electrolyte abnormality, hyperglycemia, cranial hemorrhage, migraine headache. Once workup is obtained reviewed she will be reevaluated. Patient CBC reviewed showed no evidence leukocytosis white blood count 9.6, he was 15.4, platelet normal 312. Patient INR normal at 0.9, PT 12.1. Sodium 139, calcium of 4.6, creatinine 0.66. Patient lactic acid normal at 1.2, troponin was less than 6 with a delta troponin obtained less than 6. Patient's EKG reviewed showed sinus tachycardia with a rate of 103 bpm. Patient urinalysis reviewed and showed no evidence of infection. Patient's CT CTA head and neck showed no large vessel occlusion or high-grade stenosis minimal narrowing of the proximal right MCA without significant stenosis. On reevaluation the patient she was still having a headache originally ordered her Toradol and Compazine secondary to her allergies and she was refusing this. I went back in and discussed with her and she states that she is agreeable to try these medications. Went back and reevaluate the patient again she states that her headache was slightly better I offered her sumatriptan however she states that she does not want this medication she just wants to go home. She states that she has reactions to a lot of different medications and would prefer to just go home. She was advised to return with worsening symptoms and concerns. She is agreeable this plan she states that she is feeling slightly better all question concerns answered she is discharged home in stable condition. Patient be given prescription for oral ODT Zofran. Nursing notified me that the patient left before the discharge paperwork is printed Lab Data Labs: Laboratory Results - last 24 hr 05/04/25 05/04/25 05/04/25 13:26 14:55 14:56 WBC 9.6 RBC 5.19 Hgb 15.4 H Hct 45.6 MCV 87.9 MCH 29.7 MCHC 33.8 RDW Std Deviation 47.8 H RDW Coeff of [place] 14.7 H Plt Count 312 MPV 9.2 Immature Gran % (Auto) 0.400 Neut % (Auto) 47.4 Lymph % (Auto) 45.3 H [place] % (Auto) 5.4 Eos % (Auto) 1.1 Baso % (Auto) 0.4 Absolute Neuts (auto) 4.6 Absolute Lymphs (auto) 4.35 Nucleated RBC % 0 PT 12.1 INR 0.9 APTT 26.2 Sodium 139 Potassium 4.6 Chloride 104 Carbon Dioxide 22.8 Anion Gap 13 BUN 14 Creatinine 0.66 L Estim Creat Clear Calc 83.62 Est GFR (MDRD) Non-Af 100 BUN/Creatinine Ratio 21.2 H Glucose 152 H Lactic Acid 1.2 Calcium 9.3 Troponin T High Sens < 6 Troponin T Hi Sens 2 Hr Urine Color Yellow Urine Clarity Clear Urine pH 7.0 Ur Specific [place] 1.010 Urine Protein 30 H Urine Glucose (UA) 1000 H Urine Ketones Negative Urine Occult Blood Negative Urine Nitrite Negative Urine Bilirubin Negative Urine Urobilinogen Normal Ur Leukocyte Esterase Negative Urine RBC 0 SEEN Urine WBC 0 SEEN Ur Squamous Epith Cells 0-5 SEEN Urine Bacteria 0 SEEN Urine Mucus 0 SEEN 05/04/25 15:50 WBC RBC Hgb Hct MCV MCH MCHC RDW Std Deviation RDW Coeff of [place] Plt Count MPV Immature Gran % (Auto) Neut % (Auto) Lymph % (Auto) [place] % (Auto) Eos % (Auto) Baso % (Auto) Absolute Neuts (auto) Absolute Lymphs (auto) Nucleated RBC % PT INR APTT Sodium Potassium Chloride Carbon Dioxide Anion Gap BUN Creatinine Estim Creat Clear Calc Est GFR (MDRD) Non-Af BUN/Creatinine Ratio Glucose Lactic Acid Calcium Troponin T High Sens Troponin T Hi Sens 2 Hr < 6 Urine Color Urine Clarity Urine pH Ur Specific [place] Urine Protein Urine Glucose (UA) Urine Ketones Urine Occult Blood Urine Nitrite Urine Bilirubin Urine Urobilinogen Ur Leukocyte Esterase Urine RBC Urine WBC Ur Squamous Epith Cells Urine Bacteria Urine Mucus Radiography Diagnostic Testing: Clinical Impression(s) from Imaging Studies Chest X-Ray 05/04/25 13:15 IMPRESSION: No focal consolidations. No pleural effusion or pneumothorax. Reading Location: [facility] Head/Neck CTA 05/04/25 14:26 IMPRESSION: No acute large vessel occlusion or high-grade stenosis. Minimal narrowing of the proximal right MCA without significant stenosis. Reading Location: [facility] Discharge Plan Triage Chief Complaint: General Illness ED Provider: Chris Maurer Dx/Rx/DC Orders Clinical Impression: Headache Prescriptions: New ondansetron 4 mg tablet,disintegrating 4 mg PO Q6H PRN (Reason: nausea and vomiting) Qty: 14 0RF No Action alprazolam 2 MG tablet 2 mg PO BID PRN (Reason: Anxiety) rosuvastatin 10 mg tablet 10 mg PO QHS baclofen 10 mg tablet 10 mg PO TID PRN (Reason: back pain) hydroxyzine HCl 50 mg tablet 25 - 100 mg PO DAILY PRN (Reason: anxiety) Patient Comments: PT STATES SHE DOESNT TAKE OFTEN omeprazole 20 mg capsule,delayed release(DR/EC) 20 mg PO BID aripiprazole 5 mg tablet 5 mg PO DAILY paroxetine HCl 30 mg tablet 30 mg PO DAILY fluticasone propionate 50 mcg/actuation spray,suspension 2 spray intranasal PRN PRN (Reason: Nasal Congestion) oxycodone 5 mg Tablet 5 mg PO Q4H PRN PRN (Reason: Pain Score 4-10) 3 Days Qty: 10 0RF ondansetron 4 mg tablet,disintegrating 4 mg PO Q8H PRN (Reason: nausea and vomiting) 4 Days Qty: 12 0RF acetaminophen 500 mg Tablet 1,000 mg PO Q8H PRN (Reason: Pain) Qty: 30 0RF dicyclomine 20 mg tablet 20 mg PO TID PRN (Reason: abdominal pain) Qty: 30 0RF ondansetron 4 mg tablet,disintegrating 4 mg PO Q6H PRN PRN (Reason: Nausea) Qty: 15 0RF (DME) Altera Nebulizer System Misc See Rx Instructions .ROUTE .MEDSUPPLY Qty: 1 3RF Rx Instructions: nebulizer and supplies (DME) blood-glucose meter [OneTouch Verio Flex meter] Misc See Rx Instructions .ROUTE .MEDSUPPLY Qty: 1 0RF Rx Instructions: As directed - Check blood sugar daily (DME) Blood Glucose Test Strip See Rx Instructions .ROUTE .MEDSUPPLY Qty: 50 3RF Rx Instructions: use to monitor blood sugar daily for type 2 DM (DME) blood-glucose meter Misc See Rx Instructions .ROUTE .MEDSUPPLY Qty: 1 0RF Rx Instructions: use to monitor blood sugar daily for type 2 DM (DME) lancets 32 gauge misc See Rx Instructions .ROUTE .MEDSUPPLY Qty: 100 3RF Rx Instructions: use to check blood sugar for type 2 DM ipratropium-albuterol 0.5 mg-3 mg(2.5 mg base)/3 mL solution for nebulization 3 ml INHALATION Q8H PRN (Reason: shortness of breath or wheezing) Qty: 90 3RF (DME) OneTouch Verio test strips Strip See Rx Instructions .ROUTE .MEDSUPPLY Qty: 100 3RF Rx Instructions: Check blood sugar daily budesonide-formoterol [Symbicort] 160-4.5 mcg/actuation HFA aerosol inhaler 2 puff INHALATION BID Qty: 10.2 3RF albuterol sulfate [Ventolin HFA] 90 mcg/actuation HFA aerosol inhaler 2 puff INHALATION Q6H PRN (Reason: shortness of breath or wheezing) Qty: 8 3RF Jardiance 25 mg tablet 25 mg PO QAM Qty: 30 0RF Primary Care Provider: Coral Monae NP Referrals: Coral Monae NP, [facility] [Primary Care Provider] - Print Language: Frisian Disposition Disposition: Home, Self Care Discharge Date/Time: 05/04/25 17:48
[2025-05-04] MEDS: 0.9% Normal Saline (1000mL) 1,000 ML 999 ML IV ×2 (14:54→16:16)
[2025-05-04] MEDS: Acetaminophen 500 MG Tablet 1000 MG PO (14:54)
[2025-05-04] MEDS: Ondansetron 4 MG/2 ML Vial IV (15:05)
[2025-05-04 15:08] LABS: Bacteria 0 SEEN /hpf (None Seen); Mucous, Urine 0 SEEN /hpf (<or=2+); Red Blood Cells-Urine 0 SEEN /hpf (0-5); White Blood Cells 0 SEEN /hpf (0-5)
[2025-05-04 15:17] LABS: Color, Urine Yellow (Yellow); Glucose, Dipstick 1000 mg/dl (Normal); Ketone-Dipstick Negative (Negative); Leukocyte Esterase-Dipstick Negative /ul (Negative); Nitrite-Dipstick Negative (Negative); Occult Blood-Urine Negative /ul (Negative); Protein-Dipstick 30 mg/dl (Negative); Urine Bilirubin Dipstick Negative (Negative); Urine Clarity Clear (Clear); Urine Urobilinogen Normal (Normal)
[2025-05-04 15:24] LABS: Squamous Epithelial Cells - UA 0-5 SEEN /hpf (5-10)
[2025-05-04 15:27] LABS: International Normalized Ratio 0.9; Partial Thromboplast Time 26.2 Seconds (24.1-36.2); Prothrombin Time (Protime)PT. 12.1 SECONDS (11.7-14.9)
[2025-05-04 15:29] VITALS: BP 130/94; PULSE 93; RESP 14; O2SAT 96
[2025-05-04 15:54] LABS: Lactic Acid 1.2 mmol/L (0.0-2.0)
[2025-05-04 16:16] LABS: Troponin T High Sens 2 HR < 6 ng/L (<=14)
[2025-05-04] MEDS: Ketorolac 30 MG/ML Syringe IV (16:45)
[2025-05-04] MEDS: proCHLORPERazine 10 MG/2 ML Vial IV (16:45)
[2025-05-04 17:00] VITALS: BP 132/87; PULSE 80; RESP 16; O2SAT 98
[2025-05-04 17:41] VITALS: BP 117/78; PULSE 67; RESP 18; O2SAT 98
--- NOTE | 2025-05-04 17:44 | ED.RN ---
this rn was stopped by pt and pt states ` if i left is it considered against medical advice` this rn states the dr needs to pront out discharge paperwork and then she will be discharged. pt states ` i dont have time to wait any longer he told me i was okay to leave` this rn states that we cannot hold her here and if she wants to leave without discharge paperowkr it will be considered an elopement. pt then states she is leaving. this rn obsevres pt iv is out and pt walks out of room. dr cullen and monty rn notified.
== END 2025-05-04 17:48 | disposition home or self-care (01) ==
PROVIDERS: Emergency Provider Emergency Medicine; PCP Internal Medicine; Visit Provider Emergency Medicine
DX: R51.9 Headache, unspecified (principal); E11.40 Type 2 diabetes mellitus with diabetic neuropathy, unspecified; I10 Essential (primary) hypertension; E78.00 Pure hypercholesterolemia, unspecified; F17.210 Nicotine dependence, cigarettes, uncomplicated; Z79.84 Long term (current) use of oral hypoglycemic drugs; Z79.899 Other long term (current) drug therapy
CPT/HCPCS: 70496; 70498; 71045; 80048; 81001; 83605; 84484; 85025; 85610; 85730; 87040; 87086; 87631; 93005; 96361; 96374; 96375; 99284; Q9967; A4216; J2405

== ENCOUNTER 2025-09-02 11:48 | Emergency (ER) | payer MEDICAID, SELFPAY ==
[2025-09-02 11:49] VITALS: BP 118/77; PULSE 107; RESP 18; TEMP 36.8; O2SAT 94; BMI 26.3
--- NOTE | 2025-09-02 13:04 | EX.ED.DYSGE1 ---
HPI History of Present Illness Chief Complaint: Hyperglycemia Narrative Narrative: Patient is a 60-year-old female presenting to the emergency department for hyperglycemia and a headache. Patient has an extensive past medical history as below including type 2 diabetes and chronic headaches that patient describes as migraines. She states this headache is typical of her migraine. States it started gradually 2 days ago. She denies any head trauma or falls. Denies any use of oral anticoagulation. Denies any fevers or neck pain. Denies any focal numbness or weakness. There are no changes to her baseline vision. No speech difficulty. She reports some upset stomach and nausea with 1 episode of nonbloody nonbilious vomiting. States this is also typical of her migraines. States she has been compliant with her Jardiance. She has been taking Excedrin and Tylenol with no relief of her headache. [facility] Medical History Intractable migraine Spondylolisthesis, lumbar region Wears glasses Anxiety Bipolar disorder Marijuana use Diabetes Arthritis High cholesterol Excessive bleeding Restless legs Back pain Urinary incontinence Flu vaccine need Easy bruising Back pain Essential hypertension Chronic back pain Grief Encounter for screening for malignant neoplasm of lung in current smoker with 30 pack year history or greater Cough Acute exacerbation of chronic low back pain GERD (gastroesophageal reflux disease) Abnormal EKG Panic attack Anxiety and depression Head injury Fall Concussion Muscle spasm Chronic radicular lumbar pain Type 2 diabetes mellitus Post concussion syndrome Vision problems Neuropathy IBS (irritable bowel syndrome) Hyperlipidemia Chronic headaches Hx of emotional problems Carpal tunnel syndrome Asthma Seasonal allergies Home Medications ?Medication ?Instructions ?Recorded ?Last Taken ?Type alprazolam 2 mg tablet 2 mg PO BID PRN Anxiety 03/24/19 01/04/24 History nebulizers (Altera Nebulizer #1 ea 09/06/20 Unknown Rx System) blood-glucose meter (OneTouch #1 ea 11/27/21 Unknown Rx Verio Flex Meter) blood sugar diagnostic (Blood #50 ea 11/28/21 Unknown Rx Glucose Test strips) blood-glucose meter #1 ea 11/28/21 Unknown Rx lancets 32 gauge #100 ea 11/28/21 Unknown Rx ipratropium 0.5 mg-albuterol 3 mg 3 ml inhalation Q8H PRN shortness 07/22/22 01/05/24 Rx (2.5 mg base)/3 mL nebulization of breath or wheezing #90 mL soln blood sugar diagnostic (OneTouch #100 ea 08/28/22 Unknown Rx Verio test strips) budesonide-formoterol HFA 160 2 puff inhalation BID ASTHMA #10.2 11/04/22 11/11/24 Rx mcg-4.5 mcg/actuation aerosol grams inhaler (Symbicort) Ventolin HFA 90 mcg/actuation 2 puff inhalation Q6H PRN 12/09/22 01/04/24 Rx aerosol inhaler (albuterol sulfate) shortness of breath or wheezing #8 grams empagliflozin 25 mg tablet 25 mg PO QAM DM #30 tabs 08/25/23 11/11/24 Rx (Jardiance) rosuvastatin 10 mg tablet 10 mg PO QHS HLD 12/22/23 11/10/24 History baclofen 10 mg tablet 10 mg PO TID PRN back pain 06/21/24 Unknown History aripiprazole 5 mg tablet 5 mg PO DAILY 11/11/24 11/11/24 History fluticasone propionate 50 2 spray intranasal PRN PRN Nasal 11/11/24 11/11/24 History mcg/actuation nasal Congestion spray,suspension hydroxyzine HCl 50 mg tablet 25 - 100 mg PO DAILY PRN anxiety 11/11/24 Unknown History omeprazole 20 mg capsule,delayed 20 mg PO BID 11/11/24 11/11/24 History release paroxetine HCl 30 mg tablet 30 mg PO DAILY 11/11/24 11/11/24 History acetaminophen 500 mg tablet 1,000 mg (2 x 500 mg) PO Q8H PRN 11/14/24 Unknown Rx Pain #30 tabs ondansetron 4 mg disintegrating 4 mg PO Q8H PRN nausea and 11/14/24 Unknown Rx tablet vomiting 4 days #12 tabs dicyclomine 20 mg tablet 20 mg PO TID PRN abdominal pain 01/24/25 Unknown Rx #30 tabs ondansetron 4 mg disintegrating 4 mg PO Q6H PRN PRN Nausea #15 tabs 01/24/25 Unknown Rx tablet ondansetron 4 mg disintegrating 4 mg PO Q6H PRN nausea and 05/04/25 Unknown Rx tablet vomiting #14 tabs Allergy/AdvReac Type Severity Reaction Status Date / Time red dye Allergy Severe swelling Verified 09/02/25 11:49 carbidopa Allergy Unknown Verified 09/02/25 11:49 gabapentin Allergy Unknown Verified 09/02/25 11:49 latex Allergy Rash Verified 09/02/25 11:49 quetiapine fumarate (From Allergy Other Verified 09/02/25 11:49 Seroquel) topiramate (From Topamax) Allergy Hives Verified 09/02/25 11:49 tramadol HCl (From Ultram) Allergy Other Verified 09/02/25 11:49 amitriptyline AdvReac Vomiting Verified 09/02/25 11:49 aspirin AdvReac Upset Verified 09/02/25 11:49 Stomach cyclobenzaprine HCl (From AdvReac Upset Verified 09/02/25 11:49 Flexeril) Stomach etodolac (Etodolac) AdvReac Vomiting Verified 09/02/25 11:49 hydrocodone bitartrate (From AdvReac Vomiting Verified 09/02/25 11:49 Vicodin) metformin AdvReac Diarrhea Verified 09/02/25 11:49 metoclopramide (From Reglan) AdvReac Other Verified 09/02/25 11:49 naproxen (From Naprosyn) AdvReac Upset Verified 09/02/25 11:49 Stomach propoxyphene napsylate (From AdvReac Vomiting Verified 09/02/25 11:49 Darvocet-N 100) Family History Mother Malignant hyperthermia due to anesthesia Angina pectoris Arthritis Bowel disease Myocardial infarction Heart disease Hypertension High cholesterol CVA (cerebral vascular accident) Father Asthma Arthritis Myocardial infarction Heart disease High cholesterol Hypertension CVA (cerebral vascular accident) Leukemia Diabetes Grandmother Lung cancer Grandfather Diabetes Grandmother Diabetes Surgical History Status post lumbar spinal fusion History of back surgery History of rectal surgery History of colonoscopy History of foot surgery History of nasal polypectomy S/P knee surgery History of total hysterectomy History of cholecystectomy History of partial hysterectomy History of Social History household members: none Smoking Status: Current every day smoker tobacco type: cigarettes Tobacco: How many years used: 46 Electronic Cigarette Use: not used how long ago did patient quit smokin+ pack year smoking history (1.5-2 ppd x 32 years, 3 ppd x 14 years). second hand exposure: Yes quit status: considering quitting alcohol intake: never substance use type: does not use what type of physical activity do you participate in: walking and bicycling ROS ROS ED ROS Narrative see HPI EXAM Physical Exam Narrative Exam Narrative: Vital signs: Reviewed General: Alert and orientedx3. No acute distress HEENT: Head is normocephalic and atraumatic, sinuses nontender, pupils equal round and reactive. Nares are patent. Oropharynx and throat exams normal. Neck: Supple without lymphadenopathy nontender Cardiovascular: Regular rate and rhythm, no murmurs. No rubs or gallops. Normal S1 and S2 Respiratory: Clear to auscultation bilaterally. No wheezes, rales, rhonchi Abdominal: Soft and nontender. Normal bowel sounds. No guarding or rebound. Nonsurgical abdomen Extremities: No tenderness. No bruising. Normal range of motion. Normal sensation. Skin: No rash or redness. Neurological: Cranial nerves II through XII are grossly intact. Normal strength and sensation. Normal cerebellar function The rest of the physical exam is unremarkable Const Vital Signs: 09/02/25 11:48 09/02/25 11:49 Temperature 98.2 F Temperature Source Oral Pulse Rate 107 H Respiratory Rate 18 Respiratory Effort Normal Non-Labored Respiratory Pattern Normal Blood Pressure 118/77 Blood Pressure Mean 90 Pulse Ox 94 Oxygen Delivery Method Room Air NIHSS NIHSS Initial: 1a Level of Consciousness: 0 1b LOC Questions (Score 2 if aphasic/stupor): 0 1c LOC Commands (Only score 1st attempt): 0 2 Best Gaze (If aphasic, use reflexive mvmts.): 0 3 Visual: 0 4 Facial Palsy: 0 5 Motor Arm Right (UN = amputation/fusion): 0 5 Motor Arm Left: 0 6 Motor Leg Right: 0 6 Motor Leg Left: 0 7 Limb ataxia (Only + if out of proportion): 0 8 Sensory (Aphasia/stupor=0 or 1, coma=2): 0 9 Best Language: 0 10 Dysarthria (mute, coma=2, intubated=UN): 0 11 Extinction and Inattention (only scored if +): 0 Total Score: 0 MDM MDM MDM Narrative Medical decision making narrative: Patient is a 60-year-old female presenting to the emergency department for a headache and hyperglycemia. Patient was seen and examined. Vitals are stable. Patient resting in bed comfortably in no acute distress. Clinical impression: DKA, HHS, hyperglycemia, migraine, less likely SAH, intracranial bleed or mass, meningitis or encephalitis Patient has multiple allergies however it appears that she has tolerated Toradol and Compazine before. Fluid bolus, Toradol, Compazine and Benadryl ordered for symptomatic control of the likely migraine. On chart review she had a CT of her brain and CTA of head and neck done in May with no evidence of mass. This is typical of her migraines. It was gradual in onset. She is neurologically intact. No indication for CT brain imaging at this time. No fevers, neck pain or altered mental status to be concerned about meningitis or encephalitis. In terms of her hyperglycemia, fluid boluses already running. Will obtain blood work to ensure she is not in DKA. CBC with no leukocytosis and hemoglobin of 15.7. Glucose of 264, no anion gap, bicarb mildly low at 20. No evidence of DKA. Urinalysis with no ketones. No evidence of infection. Notified by nursing staff that the patient told her that she had to go. She left before I was able to discuss lab work, return precautions or follow-up. She eloped and did not sign AMA paperwork. Clinical impression Headache Hyperglycemia History & Record Review Discussion w/independent historian: Patient Additional record(s) reviewed:: Prior ED visit and Prior labs Lab Data Attestation: I reviewed the patient's lab results. Labs: Laboratory Results - last 24 hr 09/02/25 09/02/25 13:10 13:17 WBC 5.7 RBC 5.31 Hgb 15.7 H Hct 47.5 H MCV 89.5 MCH 29.6 MCHC 33.1 RDW Std Deviation 45.1 H RDW Coeff of [place] 13.8 Plt Count 251 MPV 9.0 Immature Gran % (Auto) 0.500 Neut % (Auto) 66.9 Lymph % (Auto) 24.2 [place] % (Auto) 6.7 Eos % (Auto) 1.2 Baso % (Auto) 0.5 Absolute Neuts (auto) 3.8 Absolute Lymphs (auto) 1.37 Nucleated RBC % 0 Sodium 139 Potassium 3.7 Chloride 104 Carbon Dioxide 20.0 L Anion Gap 15 BUN 15 Creatinine 0.61 L Estim Creat Clear Calc 89.96 Est GFR (MDRD) Non-Af 102 BUN/Creatinine Ratio 25.1 H Glucose 264 H Calcium 9.0 Urine Color Yellow Urine Clarity Clear Urine pH 6.0 Ur Specific [place] 1.010 Urine Protein Negative Urine Glucose (UA) 1000 H Urine Ketones Negative Urine Occult Blood 10 H Urine Nitrite Negative Urine Bilirubin Negative Urine Urobilinogen Normal Ur Leukocyte Esterase Negative Urine RBC 0 SEEN Urine WBC 0 SEEN Ur Squamous Epith Cells 0-5 SEEN Urine Bacteria RARE Urine Mucus 0 SEEN Discharge Plan Triage Chief Complaint: Hyperglycemia ED Provider: Jacqueline De La Fuente Dx/Rx/DC Orders Prescriptions: No Action alprazolam 2 MG tablet 2 mg PO BID PRN (Reason: Anxiety) rosuvastatin 10 mg tablet 10 mg PO QHS ondansetron 4 mg tablet,disintegrating 4 mg PO Q6H PRN (Reason: nausea and vomiting) Qty: 14 0RF baclofen 10 mg tablet 10 mg PO TID PRN (Reason: back pain) hydroxyzine HCl 50 mg tablet 25 - 100 mg PO DAILY PRN (Reason: anxiety) Patient Comments: PT STATES SHE DOESNT TAKE OFTEN omeprazole 20 mg capsule,delayed release(DR/EC) 20 mg PO BID aripiprazole 5 mg tablet 5 mg PO DAILY paroxetine HCl 30 mg tablet 30 mg PO DAILY fluticasone propionate 50 mcg/actuation spray,suspension 2 spray intranasal PRN PRN (Reason: Nasal Congestion) ondansetron 4 mg tablet,disintegrating 4 mg PO Q8H PRN (Reason: nausea and vomiting) 4 Days Qty: 12 0RF acetaminophen 500 mg Tablet 1,000 mg PO Q8H PRN (Reason: Pain) Qty: 30 0RF dicyclomine 20 mg tablet 20 mg PO TID PRN (Reason: abdominal pain) Qty: 30 0RF ondansetron 4 mg tablet,disintegrating 4 mg PO Q6H PRN PRN (Reason: Nausea) Qty: 15 0RF (DME) Altera Nebulizer System Misc See Rx Instructions .ROUTE .MEDSUPPLY Qty: 1 3RF Rx Instructions: nebulizer and supplies (DME) blood-glucose meter [OneTouch Verio Flex meter] Misc See Rx Instructions .ROUTE .MEDSUPPLY Qty: 1 0RF Rx Instructions: As directed - Check blood sugar daily (DME) Blood Glucose Test Strip See Rx Instructions .ROUTE .MEDSUPPLY Qty: 50 3RF Rx Instructions: use to monitor blood sugar daily for type 2 DM (DME) blood-glucose meter [facility] [place] See Rx Instructions .ROUTE .MEDSUPPLY Qty: 1 0RF Rx Instructions: use to monitor blood sugar daily for type 2 DM (DME) lancets 32 gauge mis See Rx Instructions .ROUTE .MEDSUPPLY Qty: 100 3RF Rx Instructions: use to check blood sugar for type 2 DM ipratropium-albuterol 0.5 mg-3 mg(2.5 mg base)/3 mL solution for nebulization 3 ml INHALATION Q8H PRN (Reason: shortness of breath or wheezing) Qty: 90 3RF (DME) OneTouch Verio test strips Strip See Rx Instructions .ROUTE .MEDSUPPLY Qty: 100 3RF Rx Instructions: Check blood sugar daily budesonide-formoterol [Symbicort] 160-4.5 mcg/actuation HFA aerosol inhaler 2 puff INHALATION BID Qty: 10.2 3RF albuterol sulfate [Ventolin HFA] 90 mcg/actuation HFA aerosol inhaler 2 puff INHALATION Q6H PRN (Reason: shortness of breath or wheezing) Qty: 8 3RF Jardiance 25 mg tablet 25 mg PO QAM Qty: 30 0RF Primary Care Provider: Care Physician,No Primary Referrals: Care Physician,No Primary [Primary Care Provider, Medical] Print Language: Dominican Disposition Disposition: Elopement Discharge Date/Time: 09/02/25 13:59
[2025-09-02 13:22] LABS: Hematocrit 47.5 % (37-47); Hemoglobin 15.7 g/dL (12.0-15.0); Immature Granulocytes Count 0.030 X10^3/uL (0.0-0.0); Mean Corp Hgb Conc 33.1 g/dL (32-36); Mean Corpuscular Volume 89.5 fL (81-99); Mean Platelet Vol. 9.0 fl (6.2-12.0); NRBC Flagged by Analyzer 0 % (0-5); Platelet Count 251 K/mm3 (150-450); RBC Distribution Width CV 13.8 % (11.6-14.6); RBC Distribution Width SD 45.1 fl (35.1-43.9); Red Blood Count 5.31 M/mm3 (4.2-5.4); White Blood Count 5.7 K/mm3 (4.4-11.0)
[2025-09-02 13:26] LABS: Mucous, Urine 0 SEEN /hpf (<or=2+); Red Blood Cells-Urine 0 SEEN /hpf (0-5)
[2025-09-02 13:29] LABS: Color, Urine Yellow (Yellow); Glucose, Dipstick 1000 mg/dl (Normal); Ketone-Dipstick Negative (Negative); Leukocyte Esterase-Dipstick Negative /ul (Negative); Nitrite-Dipstick Negative (Negative); Occult Blood-Urine 10 /ul (Negative); Protein-Dipstick Negative (Negative); Specific Gravity, Urine 1.010 (1.002-1.030); Urine Bilirubin Dipstick Negative (Negative)
[2025-09-02] MEDS: 0.9% Normal Saline (1000mL) 1,000 ML 1000 ML IV (13:30)
[2025-09-02 13:41] LABS: Anion Gap 15 (5-15); BUN 15 mg/dL (4-19); BUN/Creat Ratio 25.1 RATIO (10-20); Calcium,Total 9.0 mg/dL (7.6-11.0); Carbon Dioxide 20.0 mmol/L (21.0-32.0); Chloride 104 mmol/L (98-108); Estimated Creatinine Clearance 89.96 ml/min (50-250); Glucose 264 mg/dL (70-99); Potassium 3.7 mmol/L (3.3-5.1)
[2025-09-02 13:44] LABS: Squamous Epithelial Cells - UA 0-5 SEEN /hpf (5-10)
--- NOTE | 2025-09-02 13:56 | ED.RN ---
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 my ride has to work and i have no other way home. pt requests IV be removed. pt gets dressed and leaves ED
== END 2025-09-02 13:59 | disposition left against medical advice (07) ==
PROVIDERS: Emergency Provider Student in an Organized Health Care Education/Training Program; Visit Provider Student in an Organized Health Care Education/Training Program
DX: E11.65 Type 2 diabetes mellitus with hyperglycemia (principal); E11.40 Type 2 diabetes mellitus with diabetic neuropathy, unspecified; E78.00 Pure hypercholesterolemia, unspecified; I10 Essential (primary) hypertension; G43.909 Migraine, unspecified, not intractable, without status migrainosus; Z79.84 Long term (current) use of oral hypoglycemic drugs; F17.210 Nicotine dependence, cigarettes, uncomplicated; K21.9 Gastro-esophageal reflux disease without esophagitis; J45.909 Unspecified asthma, uncomplicated
CPT/HCPCS: 80048; 81001; 85025; 96361; 96374; 99284